=== PATIENT | female | born 1955 | race Caucasian/White ===

== ENCOUNTER 2023-04-11 19:48 | Outpatient (REF) | payer OTHER, SELFPAY ==
[2023-04-15 16:07] LABS: Age Gdln ACOG Testing Note (.); Pap IG (Image Guided) Note (.)
== END 2023-04-11 19:49 | disposition home or self-care (01) ==
LOC: LAB 19:48
PROVIDERS: Visit Provider Obstetrics & Gynecology
DX: Z01.419 Encounter for gynecological examination (general) (routine) without abnormal findings (principal)
CPT/HCPCS: G0145

== ENCOUNTER 2023-04-20 07:01 | Outpatient (OUT) | payer OTHER, SELFPAY ==
--- NOTE | 2023-04-20 | MM_ITS ---
Patient: DENNIS ECHEVARRIA Exam Date: 04/20/2023 : 1955 Gender:F Ordering : DR Tyler Ervin . Admission #: [id number] Family : Non-Staff Physician Order #: [id number] CLICK HERE TO VIEW EXAM RADIOLOGY REPORT PROCEDURE: MM TOMOSYNTHESIS SCREENING BI COMPARISON: MG MAMM SCREEN 3D LUAN CAD, 04/18/2022. MG MAMM SCREEN 3D LUAN CAD, 03/29/2021. MG MAMM SCREEN LUAN W CAD, 03/19/2020. MG MAMM LUAN SCRN W CAD DIG, 11/04/2013. INDICATIONS: screening mamm Calculator Name NCI Breast Cancer Risk Assessment Tool 5 Year Breast Cancer Risk 2.50% Lifetime Breast Cancer Risk 8.90% Personal Breast Cancer No Personal Ovarian Cancer No Treatments None Family Cancers Aunt-paternal with breast cancer at age ~60; Brother with rectal cancer at age 70. LOCATION: [facility] BREAST COMPOSITION: Extremely dense, which lowers the sensitivity of mammography. FINDINGS: DIAGNOSTIC CATEGORY 1--NEGATIVE. RIGHT BREAST: No significant suspicious finding. No significant change has occurred. LEFT BREAST: No significant suspicious finding. No significant change has occurred. RECOMMENDATIONS: ROUTINE MAMMOGRAM AND CLINICAL EVALUATION IN 12 MONTHS. PLEASE NOTE: A NORMAL MAMMOGRAM DOES NOT EXCLUDE THE POSSIBILITY OF BREAST CANCER. A CLINICALLY SUSPICIOUS PALPABLE LUMP SHOULD BE BIOPSIED. Dictated by: Chacorta Castro M.D. on 04/20/2023 at 13:45 Approved by: Chacorta Castro M.D. on 04/20/2023 at 13:48
== END 2023-04-20 07:02 | disposition home or self-care (01) ==
LOC: MAMMO 07:01
PROVIDERS: Visit Provider Obstetrics & Gynecology
DX: Z12.31 Encounter for screening mammogram for malignant neoplasm of breast (principal); Z80.3 Family history of malignant neoplasm of breast; Z80.0 Family history of malignant neoplasm of digestive organs
CPT/HCPCS: 77063; 77067

== ENCOUNTER 2023-08-08 13:06 | Outpatient (OUT) | payer OTHER, SELFPAY ==
--- NOTE | 2023-08-08 | XR_ITS ---
The [address] [address] Patient Name: DENNIS ECHEVARRIA MRN: [id number] date: 1955 Sex: F Assigned Patient Location: RAD Current Patient Location: [facility] Accession/Order Number: [id number] Exam Date: 08/08/2023 13:20 Report Date: 08/08/2023 16:14 At the request of: DENIS CHANG Procedure: XR foot LUAN min 3V EXAMINATION: XR foot LUAN min 3V HISTORY: RIGHT FOOT PAIN COMPARISON: No relevant comparison available. FINDINGS: RIGHT FINDINGS: BONES: Normal. No significant arthropathy or acute abnormality. SOFT TISSUES: Negative. No visible soft tissue swelling. OTHER: Negative. LEFT FINDINGS: BONES: Normal. No significant arthropathy or acute abnormality. SOFT TISSUES: Negative. No visible soft tissue swelling. OTHER: Negative. XR/XR foot LUAN min 3V IMPRESSION: RIGHT CONCLUSION: No acute abnormality LEFT CONCLUSION: No acute abnormality Electronically authenticated by: GALINA FRAGOSO Date: 08/08/2023 16:14
== END 2023-08-08 13:07 | disposition home or self-care (01) ==
LOC: RAD 13:06
PROVIDERS: Visit Provider Podiatrist Foot & Ankle Surgery
DX: M25.571 Pain in right ankle and joints of right foot (principal); M25.572 Pain in left ankle and joints of left foot
CPT/HCPCS: 73630

== ENCOUNTER 2024-04-24 19:08 | Outpatient (REF) | payer OTHER, SELFPAY ==
--- OUTSIDE RECORDS SUMMARY | 2024-04-24 19:12 | XMS_ITS | CCD ---
Author Organization [facility] Care Team Providers Care Furniture Crater Name Role Phone Conchis Zamora Kori Unavailable Unavailable Unavailable Conchis Zamora Primary Care Provider Gasper Hamilton MD Unavailable [phone] CONCHIS ZAMORA Primary Care Physician Malvin Westbrook Unavailable JEWELL Robert Attending Unavailable JEWELL Robert Referring Unavailable Petulisses, Dr. Conchis Mason Primary Care Un available Petznick, Dr. Conchis Mason Primary Care Un available Lyster, Dr. Julio Lopez Attending Unavail able Lyster, Dr. Julio Lopez Referring Unavail able Robert, Ms. Ji Attending Unavailable Jakob, Ms. Ji Referring Unavailable Petznarlyn, Dr. Conchis Mason Primary Care Un available PETZNICK, CONCHIS Admitting Unavailable PETZNICK, CONCHIS Attending Unavailable PETZNICK, [facility] Primary Care Unavailable PETZNICK, CONCHIS Consulting Unavailable FOUZIA, DR GALINA Garrido Admitting Unavailable FOUZIA, DR GALINA Garrido Attending Unavailable PETZNICK, CONCHIS Primary Care Unavailable PETZNICK, [facility] Primary Care Unavailable GUSTAVO Navarrete, DR MALIK Admitting Unavailable HAY ., DR MALIK Attending Unavailable ZIEBER, DR BRIAN Haynes Consulting Unavailable GUSTAVO ., DR MALIK Consulting Unavailable POLO ., DR RIDDLE Admitting Unavailable POLO ., DR RIDDLE Attending Unavailable PETZNICK, CONCHIS Primary Care Unavailable POLO ., DR RIDDLE Consulting Unavailable POLO ., DR RIDDLE Admitting Unavailable POLO ., DR RIDDLE Attending Unavailable PETZNICK, [facility] Primary Care Unavailable FOUZIA, DR GALINA Garrido Consulting Unavailable POLO ., DR RIDDLE Consulting Unavailable MAURIZIO, DR BRIAN Haynes Consulting Unavailable Filemon Meléndez Unavailable Petulisses, DO Conchis Primary Care Provider MD Fozia Robert Emergency Provider [phone] Conchis Zamora Primary Care Unavailable Fozia Robert Admitting Unavailable Fozia Robert Attending Unavailable Petulisses HERNÁNDEZ, Conchis Marlon Primary Care [facility] er LACEY DAMICO Attending Unavailable CONCHIS ZAMORA Primary Care Unavai lable Conchis Zamora DO Unavailable Petulisses HERNÁNDEZ, Conchis Sheikh Primary Care Provider CONCHIS ZAMORA Attending Unavailable PETULISSES, CONCHIS Sheikh Referring Unavailable AGUILA MERCADO Attending Unavailable AGUILA MERCADO Referring Unavailable AGUILA MERCADO Attending Unavailable NATALIA YEAGER Attending Unavailable PETULISSES, CONCHIS Sheikh Referring Unavailable AGUILA MERCADO Referring Unavailable JR. ARA, CHERIE Sheikh Attending Unavaila ble CONCHIS BUENO Attending Unavailable BUENO, CONCHIS Olmedo Attending Unavailable RAIN STARR Attending Unavailable BUENO, CONCHIS J Referring Unavailable SHARA DUMONT Attending Unavailable BUENO, CONCHIS J Referring Unavailable ORLANDOKRISHAN Attending Unavailable BUENO, CONCHIS J Referring Unavailable STARR, RAIN Attending Unavailable BUENO, CONCHIS J Referring Unavailable ORLANDO, KRISHAN Attending Unavailable BUENO, CONCHIS J Referring Unavailable ORLANDO, KRISHAN Attending Unavailable BUENO, CONCHIS J Referring Unavailable ORLANDO, KRISHAN Attending Unavailable BUENO, CONCHIS J Referring Unavailable STARR, RAIN Attending Unavailable BUENO, CONCHIS J Referring Unavailable JR. MCCLELLAN GEORGE C Attending Unavaila ble KRISHAN PERRY Attending Unavailable BUENO, CONCHIS J Referring Unavailable ORLANDO, KRISHAN Attending Unavailable BUENO, CONCHIS J Referring Unavailable STARR, RAIN Attending Unavailable BUENO, CONCHIS J Referring Unavailable ORLANDO, KRISHAN Attending Unavailable BUENO, CONCHIS J Referring Unavailable DEVON HUSTON Attending Unavailable BUENO, CONCHIS J Referring Unavailable ORLANDO, KRISHAN Attending Unavailable BUENO, CONCHIS J Referring Unavailable ORLANDO, KRISHAN Attending Unavailable BUENO, CONCHIS J Referring Unavailable ORLANDO, KRISHAN Attending Unavailable BUENO, CONCHIS J Referring Unavailable STARR, RAIN Attending Unavailable BUENO, CONCHIS J Referring Unavailable ORLANDO, KRISHAN Attending Unavailable BUENO, CONCHIS J Referring Unavailable PETZNICKCONCHIS Attending Unavailable ORLANDO, KRISHAN Attending Unavailable CONCHIS BUENO Referring Unavailable Morgan TILLMAN Attending Unavailable Morgan TILLMAN Attending Unavailable Ludmila Ruff Attending Unavailable Allergies Allergy Classification Reported Allergen(s) Allergy Type Date of Onset Reaction(s) Facility (19 sources) Clarithromycin; Translations: [Biaxin] Drug Allergy 7 Intolerance, Unknown [facility] (3 sources) Dog Allergy to substance 2 Itching [facility] (14 sources) Glycerin; Translations: [saliva substitutes] Drug Allergy 3 Diarrhea (finding), Diarrhea [facility] (10 sources) Clarithromycin; Translations: [clarithromycin] Drug Allergy 7 Unknown [facility] Medications Current Medications Medication Drug Class(es) Dates Sig (Normalized) Sig (Original) [id number] 200 actuat albuterol 0.09 mg/actuat metered dose inhaler (7 sources) beta2-Adrenergic Agonist Start: 06-08-2022 albuterol HFA 90 mcg/act inhaler every 6 (six) hours. 06/08/2022 Active aspirin 81 mg delayed release oral tablet (20 sources) Platelet Aggregation Inhibitor, Nonsteroidal Anti-inflammatory Drug Start: 09-17-2018 take 1 tablet by mouth once daily Aspirin (Aspirin Low Dose) 81 mg Tablet,Delayed Release (Dr/Ec) Active 81 MG PO Daily September 17, 2018 12:00am Start: 09-18-2017 take 81 mg by mouth once daily aspirin 81 mg, Oral, Daily, Refills(s) 0, Prophylaxis Start Date: 09/18/17 Status: Ordered Comment on above: Take 81 mg by mouth once daily. biotin 1 mg oral tablet (10 sources) biotin 1000 MCG tablet Take by mouth Daily. Active Biotin 1 mg tab Take by mouth once daily. 0 Active Comment on above: Take by mouth once d aily. calcium carbonate 1500 mg oral tablet (16 sources) take 1 tablet by mouth in the morning calcium carbonate 1500 (600 Ca) MG tablet Take 600 mg by mouth in the morning. Active calcium carbonate 1500 mg / cholecalciferol 200 unt oral tablet (1 source) Vitamin D Start: 2 take 1 tablet by mouth once daily Calcium Carbonate-Vitamin D3 (Calcium + D) 600 mg-5 mcg (200 unit) Tablet Active 1 TAB PO Daily October 19, 2021 12:00am Co Q 10 (5 sources) Co Q 10 Active Co Q-10 (6 sources) Start: 8 take 200 mg by mouth once daily Co Q-10 200 mg, Oral, Daily, Refills(s) 0, Prophylaxis Start Date: 09/18/17 Status: Ordered estradiol 0.1 mg/ml vaginal cream (16 sources) Estrogen Start: Estrace 0.1 mg/g Cream 1 gm, Vaginal, MonFri, 42.5 gm, Refill(s) 11, apply 1 gram 2x a week, [facility]/pharmacy #[id number], 157, cm, 01/15/23 9:07:00 EDT, Height/Length Dosing, 65, kg, 01/15/23 9:07:00 EDT, Weight Dosing Start Date: 05/12/23 Status: Ordered Start: 12-30-2022 estradiol (Est race) 0.1 MG/GM vaginal cream APPLY 1 GRAM VAGINALLY TWICE A WEEK (SUNDAY & SUNDAY) 12/30/2022 Active Start: 10-19-2021 Estradiol Acti ve 1 APPLICATOR VAGINAL Twice a Week October 19, 2021 12:00am Start: 03-28-2021 estradiol (EST RACE) 0.01 % (0.1 mg/gram) vaginal cream Use 1 g vaginally two times a week. 0 03/28/2021 Active Start: 03-28-2021 estradiol 0.1 mg/g vaginal cream 1 gram, Vaginal, MonFri, apply 1gram 2x a week, # 42.5 gm, Refills(s) 7, Pharmacy: [facility]), 157, cm, 03/28/21 10:13:00 EDT, Height/Length Dosing, 67, kg, 03/28/21 10:13:00 EDT, Weight Dosing Start Date: 03/28/21 Status: Ordered estradiol (Estra ce) 0.01 % (0.1 mg/gram) vaginal cream Insert 0.25 Applicatorfuls (1 g) into the vagina 2 times a week. 0 Active Comment on above: Use 1 g vaginally tw o times a week. estradiol 0.1 mg/g vaginal cream (5 sources) Start: 05-02-2022 estradiol 0.1 mg/g vaginal cream 1 gram, Vaginal, MonFri, apply 1gram 2x a week, # 42.5 gm, Refills(s) 7, Pharmacy: [facility]/pharmacy #[id number], 157, cm, 01/20/22 8:35:00 EDT, Height/Length Dosing, 67, kg, 01/20/22 8:35:00 EDT, Weight Dosing Start Date: 05/02/22 Status: Ordered Start: 03-28-2021 estradiol 0.1 mg/g vaginal cream 1 gram, Vaginal, MonFri, apply 1gram 2x a week, # 42.5 gm, Refills(s) 7, Pharmacy: [facility]), 157, cm, 03/28/21 10:13:00 EDT, Height/Length Dosing, 67, kg, 03/28/21 10:13:00 EDT, Weight Dosing Start Date: 03/28/21 Status: Ordered hydrocortisone acetate 25 mg rectal suppository (1 source) Corticosteroid Start: 12-09-2020 take 25 mg rectal route at bedtime hydrocortisone 25 mg rectal suppository 25 mg = 1 supp, Rectal, Bedtime, # 36 supp, Refills(s) 1, Pharmacy: [facility]), 157.5, cm, 09/01/20 14:14:00 EST, Height/Length Dosing, 67.2, kg, 09/01/20 14:14:00 EST, Weight Dosing Start Date: 12/09/20 Status: Ordered hydrocortisone 25 mg rectal suppository (3 sources) Start: 12-09-2020 take 25 mg rectal route at bedtime hydrocortisone 25 mg rectal suppository 25 mg = 1 supp, Rectal, Bedtime, # 36 supp, Refills(s) 1, Pharmacy: [facility]), 157.5, cm, 09/01/20 14:14:00 EST, Height/Length Dosing, 67.2, kg, 09/01/20 14:14:00 EST, Weight Dosing Start Date: 12/09/20 Status: Ordered ibandronic acid 150 mg oral tablet (7 sources) Bisphosphonate Start: 02-14-2024 take 1 tablet by mouth every month ibandronate (Boniva) 150 MG tablet Indications: Age-related osteoporosis without current pathological fracture (CMS/HCC) TAKE 1 TABLET BY MOUTH ONCE A MONTH WITH PLAIN WATER 60 MINUTES BEFORE THE FIRST FOOD, BEVERAGE OR MEDICINE OF THE DAY. 12 tablet 02/14/2024 Active latanoprost 0.05 mg/ml ophthalmic solution (7 sources) Prostaglandin Analog Start: 11-14-2022 take 1 drop(s) into the eye(s) at bedtime latanoprost (Xalatan) 0.005 % ophthalmic solution Administer 1 drop into both eyes at bedtime. 11/14/2022 Active LORazepam 1 mg oral tablet (7 sources) Benzodiazepine Start: 10-23-2023 LORazepam (Ativan) 1 MG tablet Indications: Anxiety Take 1 tablet (1 mg) by mouth See administration instructions for 10 days 1 by mouth 1 hour prior to MRI 1 tablet 10/23/2023 Active meclizine hydrochloride 25 mg oral tablet (3 sources) Antiemetic Start: 01-15-2023 meclizine 25 mg Tab Refills(s) 0 Start Date: 01/15/23 Status: Ordered Start: 01-15-2023 meclizine 25 m g Tab Refills(s) 0 Start Date: 01/15/23 Status: Ordered Start: 01-07-2023 take 25 mg by mouth three times daily Meclizine Active 25 MG PO Three times daily January 07, 2023 12:00am 24 hr metoprolol succinate 25 mg extended release oral tablet (20 sources) beta-Adrenergic Sebastien Start: 04-02-2024 take 1 tablet by mouth every twenty-four hours, then take 0.5 tablet by mouth once daily metoprolol succinate XL (Toprol-XL) 25 MG 24 hr tablet Indications: Primary hypertension (CMS/HCC) TAKE 1 AND 1/2 TABLETS DAILY BY MOUTH EVERY DAY 135 tablet 04/02/2024 Active Start: 09-22-2021 End: 09-22-2022 take 1 mg by mouth once daily metoprolol 25 mg ER Tab mg tab(s), Oral, Daily, Refills(s) 0 Start Date: 01/20/22 Status: Ordered take 1.5 tablets by mouth once daily metoprolol succinate XL (Toprol XL) 25 mg 24 hr tablet Take 1.5 tablets (37.5 mg) by mouth once daily. 0 Active take 1 tablet by quang th every twelve hours Metoprolol Tartrate 37.5 MG 1 tablet with food Orally Twice a day Active take 1.5 tablets by mouth once daily Toprol XL 25 MG Oral Tablet Extended Release 24 Hour TAKE 1.5 TABLET Daily Quantity: 0 Refills: 0 Ordered: 15-May-2022 DO Active Comment on above: Take 1 tablet by quang th once daily. montelukast 10 mg oral tablet (7 sources) Leukotriene Receptor Antagonist Start: 023 take 1 tablet by mouth once daily montelukast (Singulair) 10 MG tablet Indications: Wheezing TAKE 1 TABLET BY MOUTH EVERY DAY 90 tablet 1 06/25/2023 Active Multiple Vitamins Tab (6 sources) Start: 018 take 1 tablet by mouth once daily Multiple Vitamins Tab 1 tab(s), Oral, Daily, Refill(s) 0, Prophylaxis Start Date: 09/18/17 Status: Ordered Mszooonl-Yvz-Vylto Acid-Vit K (Multi For Her 50 Plus) 400-80 mcg Capsule (1 source) Start: 019 take 50-400 capsules by mouth once daily Cgopfzjr-Xkv-Apdui Acid-Vit K (Multi For Her 50 Plus) 400-80 mcg Capsule Active 1 CAP PO Daily September 17, 2018 12:00am multivit-min/ferrous fumarate (MULTI VITAMIN ORAL) (1 source) take 1 tablet by mouth once daily multivit-min/ferrous fumarate (MULTI VITAMIN ORAL) Take 1 tablet by mouth once daily. 0 Active Multivitamins (5 sources) Multivitamins Or ally Active nitrofurantoin, macrocrystals 25 mg / nitrofurantoin, monohydrate 75 mg oral capsule (1 source) Nitrofuran Antibacterial Start: 023 End: take 1 capsule by mouth twice daily Macrobid 100 mg Cap 100 mg = 1 cap(s), Oral, BID, X 5 day(s), # 10 cap(s), Refills(s) 0, Pharmacy: [facility]/pharmacy #[id number], 157, cm, 01/20/22 8:35:00 EDT, Height/Length Dosing, 67, kg, 01/20/22 8:35:00 EDT, Weight Dosing Start Date: 09/11/22 Stop Date: 09/16/22 Status: Ordered ondansetron 4 mg disintegrating oral tablet (3 sources) Serotonin-3 Receptor Antagonist Start: ondansetron 4 mg Dis Tab Refills(s) 0 Start Date: 01/15/23 Status: Ordered Start: 01-07-2023 Ondansetron Ac tive 4 MG PO every 6 to 8 hours January 07, 2023 12:00am pantoprazole 40 mg extended release oral tablet (20 sources) Proton Pump Inhibitor Start: 05-12-2020 take 1 tablet by mouth once daily pantoprazole 40 mg Oral EC Tab 40 mg = 1 tab(s), Oral, Daily, # 10 tab(s), Refills(s) 0, Pharmacy: [facility]/pharmacy #[id number], 157.5, cm, 02/25/20 15:53:00 EDT, Height/Length Dosing, 65, kg, 02/25/20 15:53:00 EDT, Weight Dosing Start Date: 05/12/20 Status: Ordered Start: 09-17-2018 take 1 tablet by quang th once daily pantoprazole 40 mg Oral EC Tab 40 mg = 1 tab(s), Oral, Daily, # 10 tab(s), Refills(s) 0, Pharmacy: [facility]/pharmacy #[id number], 157.5, cm, 02/25/20 15:53:00 EDT, Height/Length Dosing, 65, kg, 02/25/20 15:53:00 EDT, Weight Dosing Start Date: 05/12/20 Status: Ordered Comment on above: Take 40 mg by mouth once daily. PARoxetine hydrochloride 20 mg oral tablet (20 sources) Serotonin Reuptake Inhibitor Start: take 1 tablet by mouth once daily PARoxetine (Paxil) 20 MG tablet Indications: Anxiety TAKE 1 TABLET BY MOUTH DAILY 90 tablet 02/29/2024 Active Start: 09-17-2018 take 20 mg by mouth once daily at bedtime Paroxetine Hcl Active 20 MG PO Daily at bedtime September 17, 2018 12:00am Start: 09-18-2017 take 20 mg by mouth once daily Paxil 20 mg, Oral, Daily, Refills(s) 0, Depression Start Date: 09/18/17 Status: Ordered take 1 tablet by quang th once daily PARoxetine (PAXIL) 10 mg tablet Take 10 mg by mouth once daily. 0 Active Comment on above: Take 10 mg by mouth once daily. polyethylene glycol 3350 71965 mg powder for oral solution (13 sources) Osmotic Laxative Start: Polyethylene Glycol 3350 17 GM/SCOOP as directed Orally Once a day for 30 day(s) DISPENSE LARGEST BOTTLE Feb, Active rosuvastatin calcium 10 mg oral tablet (20 sources) HMG-CoA Reductase Inhibitor Start: 3 take 1 tablet by mouth once daily rosuvastatin (Crestor) 10 mg tablet Indications: Mixed hyperlipidemia Take 1 tablet (10 mg) by mouth once daily. 90 tablet 3 05/10/2023 Active Start: 08-15-2021 End: 05-10-2023 take 1 tablet by mouth in the morning rosuvastatin (Crestor) 10 MG tablet Indications: Hyperlipidemia, unspecified hyperlipidemia type (CMS/HCC) Take 1 tablet (10 mg) by mouth in the morning. 90 tablet 2 02/22/2023 Active Start: 09-17-2018 Rosuvastatin ( Crestor) 10 mg Tablet Active 10 MG PO Q48H September 17, 2018 12:00am Every other day Start: 09-18-2017 take 10 mg by mouth once daily at bedtime Crestor 10 mg, Oral, Once a day (at bedtime), Refills(s) 0, High cholesterol Start Date: 09/18/17 Status: Ordered take 1 tablet by quang th once daily rosuvastatin (CRESTOR) 5 mg tablet Take 5 mg by mouth once daily. 0 Active Comment on above: Take 5 mg by mouth o nce daily. tetrahydrozoline hydrochloride 0.5 mg/ml ophthalmic solution (2 sources) take 1 drop(s) into the eye(s) four times daily as needed Eye Drops 0.05 % 1 drop into affected eye as needed Ophthalmic Four times a day Active triamcinolone acetonide 1 mg/ml topical cream (4 sources) Corticosteroid Start: End: triamcinolone (Kenalog) 0.1 % cream Indications: Irritation of eyelid Apply topically 2 (two) times a day for 7 days 45 g 1 04/14/2024 04/21/2024 Active ubidecarenone 100 mg oral capsule (10 sources) Start: 019 Coenzyme Q10 (Co Q-10) 100 mg Capsule Active 200 MG PO Daily September 17, 2018 12:00am take 1 capsule by mouth once farida ly coenzyme Q-10 200 mg capsule Take 1 capsule (200 mg) by mouth once daily. 0 Active ubidecarenone 100 mg / vitamin e 5 unt oral capsule (7 sources) coenzyme Q-10 10 0 MG capsule 1 (one) time each day at the same time. Active Zinc (4 sources) Start: 10-19-2021 take 50 mg by mouth once daily Zinc Active 50 MG PO Daily October 19, 2021 12:00am take 1 tablet by mouth once artie y Zinc 50 mg tab Take 50 mg by mouth once daily. 0 Active Comment on above: Take 50 mg by mouth once daily. Completed/Discontinued Medications Medication Drug Class(es) Dates Sig (Normalized) Sig (Original) bisoprolol fumarate 5 mg oral tablet (15 sources) beta-Adrenergic Sebastien Start: 09-18-2017 End: 10-19-2021 take 5 mg by mouth once daily at bedtime Bisoprolol Fumarate Discontinued 5 MG PO Daily at bedtime September 17, 2018 12:00am October 19, 2021 7:13am Calcium Carbonate / vitamin D3 (3 sources) take 1 tablet by mouth once daily calcium carbonate/vitamin D3 (CALCIUM 600 + D,3, ORAL) Take 1 tablet by mouth once daily. Calcium 600 mg D3 800 IU 0 Active Comment on above: Take 1 tablet by quang th once daily. Calcium 600 mg D3 800 IU estrogens, conjugated (long-term) 0.625 mg/ml vaginal cream (1 source) Estrogen Start: 09-17-2018 End: 10-19-2021 Conjugated Estrogens (Premarin) 0.625 mg/gram Cream Discontinued 1 APPLICATOR VAGINAL Twice a Week September 17, 2018 12:00am October 19, 2021 7:32am furosemide 20 mg oral tablet (1 source) Loop Diuretic Start: 09-17-2018 End: 10-19-2021 take 20 mg by mouth once daily Furosemide Discontinued 20 MG PO Daily September 17, 2018 12:00am October 19, 2021 7:32am lutein 20 mg / zeaxanthin 1 mg oral capsule (1 source) Start: 09-17-2018 End: 10-19-2021 take 1 capsule by mouth once daily Lutein-Zeaxanthin Discontinued 1 CAP PO Daily September 17, 2018 12:00am October 19, 2021 7:32am magnesium oxide 400 mg oral tablet (6 sources) Start: 05-30-2021 take 1 tablet by mouth once daily Magnesium Oxide 400 MG Oral Tablet TAKE 1 TABLET DAILY. Quantity: 90 Refills: 3 Ordered: 30-May-2021 Julio Christian DO Start : 30-May-2021 Active Multi Vitamin Oral Tablet (8 sources) take 1 tablet by mouth once daily Multi Vitamin Oral Tablet TAKE 1 TABLET DAILY. Quantity: 0 Refills: 0 Ordered: 30-May-2021 DO Active MULTIVITAMIN ORAL (3 sources) take 1 tablet by mouth once daily MULTIVITAMIN ORAL Take 1 tablet by mouth once daily. 0 Active Comment on above: Take 1 tablet by quang th once daily. Polyethylene Glycols (3 sources) polyethylene gly col 3350 (MIRALAX ORAL) Take by mouth once daily. 0 Active Comment on above: Take by mouth once d aily. psyllium 525 mg oral capsule (4 sources) Start: 09-01-2020 take 8 capsules by mouth once daily Metamucil 525 mg oral capsule 2,625 mg = 5 cap(s), Oral, qPM, Take 2 hour apart from the other medications with at least 8 ounces of water, # 160 cap(s), Refills(s) 4, Pharmacy: [facility]/pharmacy #[id number], 157.5, cm, 09/01/20 14:14:00 EST, Height/Length Dosing, 67.2, kg, 09/01/20 14:14:... Start Date: 09/01/20 Status: Ordered UBIDECARENONE (CO Q-10 ORAL) (3 sources) take 200 mg by mouth once daily UBIDECARENONE (CO Q-10 ORAL) Take 200 mg by mouth once daily. 0 Active Comment on above: Take 200 mg by mouth once daily. Problems Active Problems Problem Classification Problem Date Documented Da te Episodic/Chronic Abdominal pain (13 sources) Left upper quadrant pain; Translations: [Left upper quadrant pain] Onset: 01-10-2023 Resolved: 07-11-2023 09-01-2020 Episodic Anxiety disorders (9 sources) Anxiety; Translations: [Anxiety disorder, unspecified] Onset: 03-03-2020 01-10-2023 Chronic Asthma (6 sources) Acute asthma 02-20-2019 Chronic Disorders of lipid metabolism (20 sources) Hyperlipidemia; Translations: [Other and unspecified hyperlipidemia] Onset: 03-06-2017 Resolved: 07-11-2023 08-12-2021 Chronic Diverticulosis and diverticulitis (5 sources) Diverticulitis; Translations: [Diverticulitis of intestine, part unspecified, without perforation or abscess without bleeding] Chronic Esophageal disorders (20 sources) Dukes's esophagus; Translations: [Eosinophilic esophagitis] Onset: 03-03-2020 Resolved: 08-16-2021 04-07-2019 Chronic Essential hypertension (20 sources) Essential hypertension; Translations: [Unspecified essential hypertension] Onset: 08-12-2021 Resolved: 07-11-2023 08-12-2021 Chronic Genitourinary symptoms and ill-defined conditions (20 sources) Genuine stress incontinence; Translations: [Urge incontinence of urine] Onset: 01-20-2022 Resolved: 07-11-2023 05-26-2019 Chronic Genitourinary symptoms and ill-defined conditions (20 sources) Increased frequency of urination; Translations: [Microscopic hematuria] Onset: 11-29-2021 Resolved: 07-11-2023 05-26-2019 Episodic Heart valve disorders (15 sources) Mitral valve prolapse; Translations: [Nonrheumatic mitral (valve) prolapse] Onset: 01-10-2023 02-20-2019 Chronic Hemorrhoids (13 sources) Hemorrhoids; Translations: [Unspecified hemorrhoids] Onset: 01-10-2023 02-20-2019 Episodic Osteoporosis (9 sources) Senile osteoporosis; Translations: [Age-related osteoporosis without current pathological fracture] Onset: 01-10-2023 01-10-2023 Chronic Other diseases of bladder and urethra (6 sources) Urethral stricture 03-28-2021 Episodic Other eye disorders (2 sources) Disorder of eyelid; Translations: [Other specified disorders of eyelid] 04-14-2024 Episodic Other gastrointestinal disorders (13 sources) Dysphagia; Translations: [Dysphagia, unspecified] Onset: 01-10-2023 04-07-2019 Episodic Other gastrointestinal disorders (13 sources) Heartburn; Translations: [Heartburn] Onset: 01-10-2023 Resolved: 07-11-2023 04-07-2019 Episodic Other gastrointestinal disorders (5 sources) Constipation; Translations: [Constipation, unspecified] Episodic Other gastrointestinal disorders (3 sources) Constipation, unspecified Onset: 08-16-2021 Resolved: 08-16-2021 Episodic Other infections; including parasitic (13 sources) Urethral stricture due to infection; Translations: [Urethral disorders in diseases classified elsewhere] Onset: 01-10-2023 05-26-2019 Episodic Other non-traumatic joint disorders (3 sources) Pain in right shoulder; Translations: [Pain in joint, shoulder region] 04-10-2024 Episodic Other nutritional; endocrine; and metabolic disorders (2 sources) Body mass index (BMI) 26.0-26.9, adult; Translations: [Body mass index (BMI) 26.0-26.9, adult] Onset: 05-09-2023 Episodic Residual codes; unclassified (1 source) Sleep apnea; Translations: [Sleep apnea, unspecified] Chronic Residual codes; unclassified (3 sources) History of arthroscopic procedure on shoulder; Translations: [Other specified postprocedural states] 04-10-2024 Episodic Screening and history of mental health and substance abuse codes (6 sources) Tobacco use and exposure - finding 05-26-2019 Chronic Unclassified (3 sources) CONTACT W/AND (SUSP) EXPOS COVID-19; Translations: [CONTACT W/AND (SUSP) EXPOS COVID-19] Onset: 08-07-2022 Unclassified (1 source) COUGH, UNSPECIFIED; Translations: [COUGH, UNSPECIFIED] Onset: 08-07-2022 Urinary tract infections (20 sources) Chronic cystitis; Translations: [Other chronic cystitis without hematuria] Onset: 01-20-2022 05-26-2019 Chronic Urinary tract infections (2 sources) Postinfective urethral stricture of female; Translations: [Postinfective urethral stricture, not elsewhere classified, female] Onset: 01-20-2022 Episodic Past or Other Problems Problem Classification Problem Date Documented Da te Episodic/Chronic Cardiac dysrhythmias (20 sources) Palpitations; Translations: [Palpitations] Onset: 05-09-2023 Resolved: 07-11-2023 Episodic Conditions associated with dizziness or vertigo (9 sources) Vertigo; Translations: [Dizziness and giddiness] Onset: 01-07-2023 Resolved: 07-11-2023 01-07-2023 Episodic Immunizations and screening for infectious disease (1 source) Encounter for screening for human papillomavirus (HPV); Translations: [ENC SCREENING HUMAN PAPILLOMAVIRUS] Onset: 04-12-2022 Episodic Nutritional deficiencies (10 sources) Vitamin D deficiency; Translations: [Vitamin D deficiency, unspecified] Onset: 10-07-2016 Resolved: 07-11-2023 10-07-2016 Chronic Osteoarthritis (14 sources) Arthritis of right hip; Translations: [Unilateral primary osteoarthritis, right hip] Onset: 04-19-2022 Resolved: 07-11-2023 07-11-2023 Chronic Other aftercare (1 source) assisted (current) use of aspirin; Translations: [GROUP HOME CURRENT USE OF ASPIRIN] Onset: 04-17-2022 Episodic Other aftercare (1 source) Other terminal 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 supervisor (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) drug therapy; Translations: [OTH GROUP HOME CURRENT DRUG THERAPY] Onset: 04-17-2022 Episodic Other bone disease and musculoskeletal deformities (1 source) Other specified disorders of bone density and structure, right thigh; Translations: [OTH D/O BONE DEN STRUCT RT THIGH] Onset: 04-20-2022 Episodic Other bone disease and musculoskeletal deformities (7 sources) Bone cyst of left ankle; Translations: [Other cyst of bone, left ankle and foot] Onset: 07-27-2023 07-27-2023 Episodic Other circulatory disease (4 sources) Hemorrhage, not elsewhere classified; Translations: [HEMORRHAGE NOT ELSEWHERE CLASSIFIED] Onset: 04-15-2022 Episodic Other connective tissue disease (7 sources) Dupuytren's contracture; Translations: [Palmar fascial fibromatosis [Dupuytren]] Onset: 04-01-2018 01-10-2023 Episodic Other nervous system disorders (7 sources) Impairment of balance; Translations: [Other abnormalities of gait and mobility] Onset: 01-10-2023 Resolved: 07-11-2023 07-11-2023 Episodic Other nutritional; endocrine; and metabolic disorders (20 sources) Overweight in adulthood with body mass index of 25 or more but less than 30; Translations: [Overweight] Onset: 05-09-2023 Resolved: 07-11-2023 05-10-2023 Episodic Other screening for suspected conditions (not mental disorders or infectious disease) (16 sources) Encounter for screening mammogram for malignant neoplasm of breast; Translations: [Encounter for screening for malignant neoplasm of cervix] Onset: 04-10-2022 Episodic Residual codes; unclassified (1 source) Asymptomatic menopausal state; Translations: [ASYMPTOMATIC MENOPAUSAL STATE] Onset: 04-20-2022 Episodic Residual codes; unclassified (1 source) Family history of malignant neoplasm of breast; Translations: [FAMILY HX MALIG NEOPLASM OF BREAST] Onset: 04-20-2022 Episodic Residual codes; unclassified (1 source) Family history of malignant neoplasm of other organs or systems; Translations: [FAM HX MALIG NEOPLASM OTH ORGN/SYS] Onset: 04-20-2022 Episodic Screening and history of mental health and substance abuse codes (9 sources) Ex-smoker; Translations: [Personal history of tobacco use] Onset: 01-10-2023 Resolved: 07-11-2023 07-11-2023 Episodic Unclassified (1 source) CONTACT W/AND (SUSP) EXPOS COVID-19; Translations: [CONTACT W/AND (SUSP) EXPOS COVID-19] Onset: 08-04-2022 Unclassified (1 source) Onset: 05-10-2023 05-10-2023 Results Test Name Value Interpretation Reference Range Facility Ambulatory Visit Summaryon 1 Ambulatory Visit Summary Ambulatory Visit Summary IVONNE ECHEVARRIA :1955 Visit Date:04/22/2024 Ambulatory Visit Instructions Your Diagnosis Urethral stricture Chronic cystitis Feeling of incomplete bladder emptying Your Care Team Attending Physician - EDGAR Ruff APRN, [place] X Primary Care Physician - CONCHIS ZAMORA DO This Is Your Medications List Contact prescribing physician if questions or concerns aspirin estradiol topical (Estrace 0.1 mg/g Cream) estradiol topical (estradiol 0.1 mg/g vaginal cream) meclizine (meclizine 25 mg Tab) metoprolol (metoprolol 25 mg ER Tab) multivitamin (Multiple Vitamins Tab) ondansetron (ondansetron 4 mg Dis Tab) paroxetine (Paxil) rosuvastatin (Crestor) ubiquinone (Co Q-10) Procedures Performed Dilation of urethra (04/04/2021), Dilation of urethra (06/28/2020), Esophagogastroduodenoscopy (03/12/2019), Colonoscopy (10/21/2018), Urethral dilatation (11/16/2017), Cystourethroscopy with dilation of urethral stricture (01/29/2017), Caesarean section, Laparoscopy, Rotator cuff, Tonsillectomy. Discharge Vitals Heart Rate (Peripheral) 91 Respiratory Rate 16 Blood Pressure 128/88 Height 157 cm Height 62 in Weight 65 kg Weight 143 lb BMI 26.37 What to do next Scheduled Follow-Up Appointments Sunday 3:00 PM EST With: Morgan TILLMAN MD Where: [facility] [address] [address] [place] [address]- You Need to Schedule the Following Appointments Follow Up with Morgan TILLMAN MD, URL When: Comments: IO UD Where: [address] [place] [address]- Medications What How Much When Instructions Unchanged aspirin 81 Milligram By Mouth Every day Contact prescribing physician if questions or concerns Unchanged estradiol topical (Estrace 0.1 mg/ g Cream) 1 Gram Vaginal Sunday & Sunday apply 1 gram 2x a week Contact prescribing physician if questions or concerns Unchanged estradiol topical (estradiol 0.1 mg/ g vaginal cream) 1 Gram Vaginal Sunday & Sunday apply 1gram 2x a week Contact prescribing physician if questions or concerns Unchanged meclizine (meclizine 25 mg Tab) Contact prescribing physician if questions or concerns Unchanged metoprolol (metoprolol 25 mg ER Tab) By Mouth Every day Contact prescribing physician if questions or concerns Unchanged multivitamin (Multiple Vitamins Tab) 1 Tablets By Mouth Every day Contact prescribing physician if questions or concerns Unchanged ondansetron (ondansetron 4 mg Dis Tab) Contact prescribing physician if questions or concerns Unchanged paroxetine (Paxil) 20 Milligram By Mouth Every day Contact prescribing physician if questions or concerns Unchanged rosuvastatin (Crestor) 10 Milligram By Mouth Once a day (at bedtime) Contact prescribing physician if questions or concerns Unchanged ubiquinone (Co Q-10) 200 Milligram By Mouth Every day Contact prescribing physician if questions or concerns Allergies Bioxtra (Diarrhea) Problems Ongoing - Any problem that you are currently receiving treatment for. Asthma, acute Dukes's esophagus Chronic cystitis Cystitis Dysphagia Eosinophilic esophagitis Frequency of urination Heartburn Hemorrhoids LUQ pain Microscopic hematuria Mitral valve prolapse Nocturia Other urethral stricture, female Personal history of smoking Stress incontinence Urethral stricture Urge incontinence Patient Survey You may receive a survey via text or e-mail asking about your office visit. Please share your experience with us by completing your survey. We appreciate your feedback and thank you for choosing us for your care. Education Materials Urethral Stricture Urethral stricture is when the tube that drains pee (urine) from the bladder out of the body (urethra) becomes too narrow. The urethra can become narrow because of scar tissue, infection, surgery, or an injury. This can make it difficult to pee (urinate). In females, the urethra opens above the vaginal opening. In males, the urethra opens at the tip of the penis, and the urethra is much longer than it is in females. Because of the length of the male urethra, urethral stricture is much more common in males. What are the causes? In males and females, common causes of urethral stricture include: ? Urinary tract infection (UTI). ? Sexually transmitted infection (STI). ? Using a soft tube in the urethra to drain pee from the bladder (urinary catheter). ? Urinary tract surgery. In males, common causes of urethral stricture include: ? A severe injury to the pelvis. ? Prostate surgery. ? Injury to the penis. In many cases, the cause of urethral stricture is not known. What increases the risk? You are more likely to develop this condition if you: ? Are male. Males who have had prostate surgery are at risk of developing this co (more content not included)... Normal [facility] Urology Office/Clinic Noteon 04-22-2024 Urology Office/Clinic Note Urology Office/Clinic Note Chief Complaint 15 month follow up HPI Staff 68 year old female PRW patient presents today for a 15 month follow up. Previous Dx: chronic cystitis, urethral stricture and stress incontinence. *Estradiol cream 1 gram 2x weekly. S/P IO UD 04/04/21, 06/28/20, 11/16/17. Cysto/UD 01/29/17. PVR: 0 ml Dysuria: denies Incomplete bladder emptying: sometimes Hematuria: denies Frequency: denies Urgency: denies Nocturia: once a night Stream: denies hesitancy, has a stream that goes different ways Leaking: denies Post void dripping: denies Wearing pads/ Depends: denies Urge incontinence: denies Stress incontinence: once in a while leaks a little if coughing, sneezing Incontinence without Sensory Awareness: denies Abdominal pain: denies Flank pain: denies Sexual complaints: _ History of Present Illness I have reviewed and verified the staff HPI to be accurate for this encounter. Portions of this record may have been created with voice recognition artificial intelligence software, specifically [employer], [employer] and or [employer]. Substitutions may have occurred due to the inherent limitations of voice recognition and artificial intelligence software. Review of Systems PHQ Score Initial Depression Screen Score: 0 SCORE Physical Exam Vitals & Measurements HR: 91(Peripheral) RR: 16 BP: 128/88 HT: 62 in HT: 157 cm WT: 65 kg WT: 143 lb BMI: 26.37 General: Well developed, well nourished, in no acute distress. Assessment/Plan PWR pt BBS 10 1. Urethral stricture (N35.12: Postinfective urethral stricture, not elsewhere classified, female) S/p IO UD done 04/04/21, 06/28/20, 11/16/2017. Cysto/UD done 01/29/17. [1] PVR today 0 No recent infections However, patient does note that she has a spraying stream that is extremely bothersome to her. We did discuss possibility of repeat urethral dilation, which patient is interested in. Discussed risks vs benefit of procedure, need for repeat procedure in the future. -Schedule for IO UD with PRW Ordered: Urnls Dip Stick Auto w/o Microscopy POC 28285 2. Chronic cystitis (N30.20: Other chronic cystitis without hematuria) Patient denies any urinary tract infection in the last year. UA today without signs of blood or infection. Patient is using estrogen cream twice weekly, tolerating well without side effects. Advised to continue use in order to prevent UTIs. Increase fluid intake, avoid bladder irritants ER for fever, NV, severe flank pain, inability to urinate -Patient knows to call office with urinary symptoms -Continue estrogen cream, call for refills Ordered: Urnls Dip Stick Auto w/o Microscopy POC 41370 3. Feeling of incomplete bladder emptying (R39.14: Feeling of incomplete bladder emptying) Occasional PVR today 0 -cont to monitor Ordered: [id number] Measure Post Void residual urine and/or bladder capacity by US- non-imaging Follow-up With When Contact Information PRIMO GRUBER, Morgan Haynes, URL [address] [place] [address]- Additional Instructions: IO UD Patient Education Urethral Stricture Problem List/Past Medical History Ongoing Asthma, acute Dukes's esophagus Chronic cystitis Cystitis Dysphagia Eosinophilic esophagitis Frequency of urination Heartburn Hemorrhoids LUQ pain Microscopic hematuria Mitral valve prolapse Nocturia Other urethral stricture, female Personal history of smoking Stress incontinence Urethral stricture Urge incontinence Historical No qualifying data Procedure/Surgical History Dilation of urethra (04/04/2021), Dilation of urethra (06/28/2020), Esophagogastroduodenoscopy (03/12/2019), Colonoscopy (10/21/2018), Urethral dilatation (11/16/2017), Cystourethroscopy with dilation of urethral stricture (01/29/2017), Caesarean section, Laparoscopy, Rotator cuff, Tonsillectomy. Medications aspirin, 81 mg, Oral, Daily Co Q-10, 200 mg, Oral, Daily Crestor, 10 mg, Oral, Once a day (at bedtime) Estrace 0.1 mg/g Cream, 1 gm, Vaginal, MonFri, 11 refills estradiol 0.1 mg/g vaginal cream, 1 gm, Vaginal, MonFri, 7 refills meclizine 25 mg Tab metoprolol 25 mg ER Tab, Oral, Daily Multiple Vitamins Tab, 1 tab(s), Oral, Daily ondansetron 4 mg Dis Tab Paxil, 20 mg, Oral, Daily Allergies Bioxtra (Diarrhea) Social History Alcohol Current, 02/20/2019 Exercise Other Caffeine-non e, 02/20/2019 Substance Abuse - Denies Substance Abuse, 02/20/2019 Tobacco Never (less than 100 in lifetime) Tobacco Use:. Never Smokeless Tobacco Use:. Household tobacco concerns: No., 04/22/2024 Family History Colon cancer: Brother. Prostate CA: Brother. Immunizations Vaccine Date Status influenza virus vaccine, inactivated 06/20/2022 Recorded zoster vaccine, inactivated 04/04/2022 Recorded pneumococcal 20-valent conjugate vaccine 11/08/2021 Recorded zoster vaccine, inactivated 10/10/2021 Recorded SARS-CoV- (more content not included)... Normal [facility] Comment on above: Result Comment: Elec tronically Signed By: EDGAR Ruff APRN, Ludmila Abreu\.br\Date and Time Signed: 04/22/24 09:55 EDT MR SHOULDER RIGHT WO IV CONT Ish 11-05-2023 MR SHOULDER RIGHT WO IV CONTRAST EXAMINATION: MR SHOULDER RIGHT WO IV CONTRAST HISTORY: continuous pain right shoulder pain. TECHNIQUE: Routine non-contrast MRI of the shoulder, right side COMPARISON: 10/09/2023 radiographs. RESULT: Rotator Cuff Tendons: Full-thickness tearing involving essentially entire distal supraspinatus, with medial retraction of the torn fibers to near the acromion, with underlying tendinosis. Mild tendinosis involving infraspinatus and subscapularis, with small amount of reactive cystic change at the insertions, without evidence for tear. Teres minor appears intact. Long Head Biceps Tendon: Intra-articular portion not well visualized, probably torn with distal retraction. Muscle: Mild volume loss of supraspinatus. Labrum: Diffuse fraying/tearing. Bones and Marrow: No evidence of fracture or bone marrow replacing process. Glenohumeral Joint: Osteophytes with at least small areas of chondral loss. No joint effusion. Acromioclavicular Joint: Mild degenerative changes with undersurface osteophytes. Other: Fluid extending into the subacromial subdeltoid bursa. IMPRESSION: Full-thickness tearing involving essentially entire distal supraspinatus as discussed. Likely tear with distal retraction of the long head biceps tendon ELECTRONICALLY SIGNED BY: Alexy Saldana MD Normal Not Available Comment on above: Order Comment: MRI R T shoulder w/o at [facility]. Orbits if needed. US LOWER EXTREMITY NON-VASC LEFTon 07-11-2023 US LOWER EXTREMITY NON-VASC LEFT US LOWER EXTREMITY NON-VASC LEFT History: Left ankle lump and swelling. Technique: Sonography of the area of concern within the soft tissues of the ankle was performed. Comparison: None. Result: Corresponding to the area of concern/lump there is a hypoechoic area measured at 2.0 x 0.8 x 1.9 cm, which is nonspecific sonographically. This could represent ganglion cyst, focal joint fluid, among multiple other etiologies. Recommend clinical correlation. If not resolving, could consider ankle MRI to further assess. IMPRESSION: Impression: Nonspecific hypoechoic area at the area of lump as discussed. ELECTRONICALLY SIGNED BY: Alexy Saldana MD Normal Not Available Alanine aminotransferase [En zymatic activity/volume] in Serum or PlasmaOrdered By: Fozia Robert on 01-07-2023 ALT [Catalytic activity/Vol] 15 U/L 7-52 [facility] Albumin [Mass/volume] in Ser um or Plasma by Bromocresol green (BCG) dye binding methoOrdered By: Fozia Robert on 01-07-2023 Albumin BCG dye [Mass/Vol] 4.4 g/dL 3.5-5.7 [facility] Alkaline phosphatase [Enzyma tic activity/volume] in Serum or PlasmaOrdered By: Fozia Robert on 01-07-2023 ALP [Catalytic activity/Vol] 51 U/L 34-104 [facility] Aspartate aminotransferase [ Enzymatic activity/volume] in Serum or PlasmaOrdered By: Fozia Robert on 01-07-2023 AST [Catalytic activity/Vol] 22 U/L 13-39 [facility] Basophils Auto (Bld) [#/Vol] Ordered By: Fozia Robert on 01-07-2023 Basophils (Bld) [#/Vol] 0.1 10*3/uL 0.0-0.2 [facility] Basophils/100 WBC Auto (Bld) Ordered By: Fozia Robert on 01-07-2023 Basophils/100 WBC (Bld) 1.5 % . [facility] Bilirubin.total [Mass/volume ] in Serum or PlasmaOrdered By: Fozia Robert on 01-07-2023 Bilirubin [Mass/Vol] 0.5 mg/dL 0.3-1.[address] [facility] CT head/brain wo conon 01-07 CT head/[place] [address] CT Scan Report Signed Patient: Ivonne Echevarria MR#: [id number] : 1955 Acct:[id number] Age/Sex: 67 / F ADM Date: 01/07/23 Loc: ER Room: Type: [facility] ER Attending Dr: Copies to: Fozia Robert MD Ordering Provider: Fozia Robert MD Date of Service: 01/07/23 CT/CT head/brain wo con: lightheadedness/dizziness Unenhanced head CT TECHNIQUE: Contiguous axial imaging of the head. The CT exam was performed using one or more the following dose reduction techniques: Automated exposure control, adjustment of the MA and/or Kv according to patient size, or use of the iterative reconstruction technique. COMPARISON: None HISTORY: Elevated blood pressure. Dizziness. VENTRICLES: Within normal limits ATROPHY: None BRAIN PARENCHYMA: Adequate wooten-white matter differentiation identified. HEMORRHAGE: None HERNIATION: No mass effect or herniation INFARCTION: No recent vascular distribution infarction is seen. EXTRA-AXIAL FLUID COLLECTIONS None MIDBRAIN: Unremarkable LEVON: Unremarkable MEDULLA: Unremarkable SINUSES: Unremarkable ORBITS: Grossly unremarkable MASTOIDS: Unremarkable BONY STRUCTURES Intact ADDITIONAL FINDINGS: CT/CT head/brain wo con IMPRESSION: Unremarkable exam Impression dictated by: Devendra Jones M.D.01/07/2023 1:28 PM Dictation Location: [place] [address] Transcribed By: [facility] 01/07/23 1328 Dictated By: Devendra Jones DO 01/07/23 1325 Signed By: 01/07/23 1328 Normal [facility] Calcium [Mass/volume] in Ser um or PlasmaOrdered By: Fozia Robert on 01-07-2023 Calcium [Mass/Vol] 9.4 mg/dL 8.6-10.3 [facility] Carbon dioxide, total [Moles /volume] in Serum or PlasmaOrdered By: Fozia Robert on 01-07-2023 CO2 [Moles/Vol] 31.4 mmol/L 21.0-31.0 [facility] Chloride [Moles/volume] in S manuela or PlasmaOrdered By: Fozia Robert on 01-07-2023 Chloride [Moles/Vol] 104 mmol/L 98-107 [facility] Complete Blood Count Auto Di ffon 01-07-2023 Basophils (Bld) [#/Vol] 0.1 10*3/uL Normal 0.0-0.2 [facility] Comment on above: Result Comment: PERF ORMED BY: [place] [address] PATHOLOGIST [employer] AYANNA MARADIAGA M.D. Performed By: #### C BC, HS TROP, CMP, CK #### [place] [address] [place] Basophils/100 WBC (Bld) 1.5 % Normal . [facility] Comment on above: Performed By: #### C BC, HS TROP, CMP, CK #### [address] Eosinophils (Bld) [#/Vol] 0.3 10*3/uL Normal 0.0-0.45 [facility] Comment on above: Performed By: #### C BC, HS TROP, CMP, CK #### [address] Eosinophils/100 WBC (Bld) 6.3 % Normal . [facility] Comment on above: Performed By: #### C BC, HS TROP, CMP, CK #### [address] Erythrocyte distribution width (RBC) [Ratio] 13.5 % Normal 11.9-15.3 [facility] Comment on above: Performed By: #### C BC, HS TROP, CMP, CK #### [address] Hematocrit (Bld) [Volume fraction] 41.1 % Normal 34.0-46.4 [facility] Comment on above: Performed By: #### C BC, HS TROP, CMP, CK #### [address] Hemoglobin (Bld) [Mass/Vol] 14.3 g/dL Normal 11.8-15.4 [facility] Comment on above: Performed By: #### C BC, HS TROP, CMP, CK #### [place] [address] [place] Lymphocytes (Bld) [#/Vol] 1.4 10*3/uL Normal 1.00-4.8 [facility] Comment on above: Performed By: #### C BC, HS TROP, CMP, CK #### [place] [address] [place] Lymphocytes/100 WBC (Bld) 26.9 % Normal . [facility] Comment on above: Performed By: #### C BC, HS TROP, CMP, CK #### [address] MCH (RBC) [Entitic mass] 30.1 pg Normal 24.7-34.3 [facility] Comment on above: Performed By: #### C BC, HS TROP, CMP, CK #### [address] MCV (RBC) [Entitic vol] 86.8 fL Normal 80-100 [facility] Comment on above: Performed By: #### C BC, HS TROP, CMP, CK #### [address] Mean Corpuscular HGB Conc 34.7 g/dL Normal 32.0-35.0 [facility] Comment on above: Performed By: #### C BC, HS TROP, CMP, CK #### [address] Monocytes (Bld) [#/Vol] 0.4 10*3/uL Normal 0.0-0.8 [facility] Comment on above: Performed By: #### C BC, HS TROP, CMP, CK #### [address] Monocytes/100 WBC (Bld) 15.51 % Normal 0.00-20.00 [facility] Comment on above: Performed By: #### C BC, HS TROP, CMP, CK #### [address] Monocytes/100 WBC (Bld) 8.6 % Normal . [facility] Comment on above: Performed By: #### C BC, HS TROP, CMP, CK #### [address] Neutrophils (Bld) [#/Vol] 2.9 10*3/uL Normal 1.8-7.7 [facility] Comment on above: Performed By: #### C BC, HS TROP, CMP, CK #### [place] [address] [place] Neutrophils/100 WBC (Bld) 56.7 % Normal . [facility] Comment on above: Performed By: #### C BC, HS TROP, CMP, CK #### [facility] [address] NRBC% 0.1 /100{WBC} Normal 0-0.5 [facility] Comment on above: Performed By: #### C BC, HS TROP, CMP, CK #### [facility] [address] Platelet mean volume (Bld) [Entitic vol] 6.9 fL Normal 6.3-10.7 [facility] Comment on above: Performed By: #### C BC, HS TROP, CMP, CK #### [address] Platelets (Bld) [#/Vol] 325 10*3/uL Normal 150-450 [facility] Comment on above: Performed By: #### C BC, HS TROP, CMP, CK #### [address] RBC (Bld) [#/Vol] 4.74 10*6/uL Normal 3.60-5.00 [facility] Comment on above: Performed By: #### C BC, HS TROP, CMP, CK #### [address] WBC (Bld) [#/Vol] 5.1 10*3/uL Normal 3.8-11.6 [facility] Comment on above: Performed By: #### C BC, HS TROP, CMP, CK #### [address] Comprehensive Metabolic Pane shalom 01-07-2023 Albumin [Mass/Vol] 4.4 g/dL Normal 3.5-5.7 [facility] Comment on above: Performed By: #### C BC, HS TROP, CMP, CK #### [address] Albumin/Globulin [Mass ratio] 1.6 {ratio} Normal [facility] Comment on above: Performed By: #### C BC, HS TROP, CMP, CK #### [facility] [address] ALP [Catalytic activity/Vol] 51 U/L Normal 34-104 [facility] Comment on above: Performed By: #### C BC, HS TROP, CMP, CK #### [facility] [address] ALT [Catalytic activity/Vol] 15 U/L Normal 7-52 [facility] Comment on above: Performed By: #### C BC, HS TROP, CMP, CK #### [facility] [address] Anion gap [Moles/Vol] 8.8 mmol/L Normal 6.0-15.0 [facility] Comment on above: Performed By: #### C BC, HS TROP, CMP, CK #### [facility] [address] AST [Catalytic activity/Vol] 22 U/L Normal 13-39 [facility] Comment on above: Performed By: #### C BC, HS TROP, CMP, CK #### [facility] [address] Bilirubin [Mass/Vol] 0.5 mg/dL Normal 0.3-1.0 [facility] Comment on above: Performed By: #### C BC, HS TROP, CMP, CK #### [facility] [address] Calcium [Mass/Vol] 9.4 mg/dL Normal 8.6-10.3 [facility] Comment on above: Performed By: #### C BC, HS TROP, CMP, CK #### [facility] [address] [place] [address] [place] Chloride [Moles/Vol] 104 mmol/L Normal 98-107 [facility] [facility] Comment on above: Performed By: #### C BC, HS TROP, CMP, CK #### [facility] [address] [place] [address] [place] CO2 [Moles/Vol] 31.4 mmol/L High 21.0-31.0 [facility] Comment on above: Performed By: #### C BC, HS TROP, CMP, CK #### [facility] [address] Creatinine [Mass/Vol] 0.84 mg/dL Normal 0.60-1.20 [facility] Comment on above: Performed By: #### C BC, HS TROP, CMP, CK #### [facility] [address] Creatinine Clr Calc Pharmacy 59.57 [facility] Comment on above: Result Comment: PERF ORMED BY: [place] [address] PATHOLOGIST [employer] AYANNA MARADIAGA M.D. Performed By: #### C BC, HS TROP, CMP, CK #### [address] GFR/1.73 sq M.predicted MDRD (S/P/Bld) [Vol rate/Area] mL/min/{1.73_m2} [facility] Comment on above: Performed By: #### C BC, HS TROP, CMP, CK #### [facility] [address] Globulin (S) [Mass/Vol] 2.8 g/dL [facility] Comment on above: Performed By: #### C BC, HS TROP, CMP, CK #### [address] Glucose [Mass/Vol] 91 mg/dL Normal 70-100 [facility] Comment on above: Result Comment: [place] Glucose Reference Range is dependent on time and content of last meal. Glucose of more than 200 mg/dL in a nonstressed, ambulatory subject supports the diagnosis of Diabetes Mellitus. ADA recommended reference range Performed By: #### C BC, HS TROP, CMP, CK #### [facility] [address] Potassium [Moles/Vol] 4.2 mmol/L Normal 3.5-5.1 [facility] Comment on above: Performed By: #### C BC, HS TROP, CMP, CK #### [facility] [address] [place] [address] [place] Protein [Mass/Vol] 7.2 g/dL Normal 6.4-8.9 [facility] Comment on above: Performed By: #### C BC, HS TROP, CMP, CK #### [facility] [address] [place] [address] [place] Sodium [Moles/Vol] 140 mmol/L Normal 136-145 [facility] Comment on above: Performed By: #### C BC, HS TROP, CMP, CK #### [facility] [address] Urea nitrogen [Mass/Vol] 14 mg/dL Normal 7-25 [facility] Comment on above: Performed By: #### C BC, HS TROP, CMP, CK #### [facility] [address] [place] [id number] [facility] Creatine Kinaseon 01-07-2023 CK [Catalytic activity/Vol] 131 U/L Normal 30-223 [facility] Comment on above: Performed By: #### C BC, HS TROP, CMP, CK #### [facility] [address] Creatine kinase [Enzymatic a ctivity/volume] in Serum or PlasmaOrdered By: Fozia Robert on 01-07-2023 CK [Catalytic activity/Vol] 131 U/L 30-223 [facility] Creatinine [Mass/volume] in Serum or PlasmaOrdered By: Fozia Robert on 01-07-2023 Creatinine [Mass/Vol] 0.84 mg/dL 0.60-1.20 [facility] ECG 12 lead ECGon 01-07-2023 ECG 12 lead ECG [facility] Main [place] [address] [place] [address] Electrocardiograph Report Signed Patient: Ivonne Echevarria MR#: [id number] : 1955 Acct:[id number] Age/Sex: 67 / F ADM Date: 01/07/23 Loc: ER Room: Type: [facility] ER Attending Dr: Ordering Provider: Fozia Robert MD Date of Service: 01/07/2308/31/1239 ECG/ECG 12 lead ECG: Recheck/Abnormal Lab/Rx Copies to: Test Reason : Blood Pressure : 210/098 mmHG Vent. Rate : 074 BPM Atrial Rate : 074 BPM P-R Int : 156 ms QRS Dur : 082 ms QT Int : 378 ms P-R-T Axes : 060 047 045 degrees QTc Int : 419 ms Normal sinus rhythm Possible Left atrial enlargement Borderline ECG When compared with ECG of 27-SEP-2018 12:15, Borderline criteria for Inferior infarct are no longer present Nonspecific T wave abnormality, improved in Inferior leads Nonspecific T wave abnormality no longer evident in Anterior leads QT has shortened Confirmed by FOZIA ROBERT MD ([id number]) on 01/07/2023 3:54:09 PM Referred By: Electronically Signed By:FOZIA ROBERT MD Transcribed By: MUS Signed By Fozia Robert MD 01/07/23 1554 Normal [facility] Eosinophils Auto (Bld) [#/Vo l]Ordered By: Fozia Robert on 01-07-2023 Eosinophils (Bld) [#/Vol] 0.3 10*3/uL 0.0-0.45 [facility] Eosinophils/100 WBC Auto (Bl d)Ordered By: Fozia Robert on 01-07-2023 Eosinophils/100 WBC (Bld) 6.3 % . [facility] Erythrocyte distribution wid th Auto (RBC) [Ratio]Ordered By: Fozia Robert on 01-07-2023 Erythrocyte distribution width (RBC) [Ratio] 13.5 % 11.9-15.3 [facility] Globulin Calc (S) [Mass/Vol] Ordered By: Fozia Robert on 01-07-2023 Globulin (S) [Mass/Vol] 2.8 g/dL [facility] Glucose [Mass/volume] in Ser um or PlasmaOrdered By: Fozia Robert on 01-07-2023 Glucose [Mass/Vol] 91 mg/dL 70-100 [facility] Comment on above: ADA recommended refe rence rangeRandom Glucose Reference Range is dependent on time and content of last meal. Glucose of more than 200 mg/dL in a nonstressed, ambulatory subject supports the diagnosis of Diabetes Mellitus. Hematocrit Auto (Bld) [Volum e fraction]Ordered By: Fozia Robert on 01-07-2023 Hematocrit (Bld) [Volume fraction] 41.1 % 34.0-46.4 [facility] Hemoglobin [Mass/volume] in BloodOrdered By: Fozia Robert on 01-07-2023 Hemoglobin (Bld) [Mass/Vol] 14.3 g/dL 11.8-15.4 [facility] Leukocytes [#/volume] correc isaac for nucleated erythrocytes in Blood by Automated counOrdered By: Fozia Robert on 01-07-2023 WBC corrected for nucl RBC Auto (Bld) [#/Vol] 5.1 10*3/uL 3.8-11.6 [facility] Lymphocytes Auto (Bld) [#/Vo l]Ordered By: Fozia Robert on 01-07-2023 Lymphocytes (Bld) [#/Vol] 1.4 10*3/uL 1.00-4.8 [facility] Lymphocytes/100 WBC Auto (Bl d)Ordered By: Fozia Robert on 01-07-2023 Lymphocytes/100 WBC (Bld) 26.9 % . [facility] MCH Auto (RBC) [Entitic mass ]Ordered By: Fozia Robert on 01-07-2023 MCH (RBC) [Entitic mass] 30.1 pg 24.7-34.3 [facility] MCHC Auto (RBC) [Mass/Vol]Or dered By: Fozia Robert on 01-07-2023 MCHC (RBC) [Mass/Vol] 34.7 g/dL 32.0-35.0 [facility] MCV Auto (RBC) [Entitic vol] Ordered By: Fozia Robert on 01-07-2023 MCV (RBC) [Entitic vol] 86.8 fL 80-100 [facility] Monocyte distribution width [Entitic volume] in Blood by AutomatedOrdered By: Fozia Robert on 01-07-2023 Monocyte distribution width Auto (Bld) [Entitic vol] 15.51 % 0.00-20.00 [facility] Monocytes Auto (Bld) [#/Vol] Ordered By: Fozia Robert on 01-07-2023 Monocytes (Bld) [#/Vol] 0.4 10*3/uL 0.0-0.8 [facility] Monocytes/100 WBC Auto (Bld) Ordered By: Fozia Robert on 01-07-2023 Monocytes/100 WBC (Bld) 8.6 % . [facility] Neutrophils Auto (Bld) [#/Vo l]Ordered By: Fozia Robert on 01-07-2023 Neutrophils (Bld) [#/Vol] 2.9 10*3/uL 1.8-7.7 [facility] Neutrophils/100 WBC Auto (Bl d)Ordered By: Fozia Robert on 01-07-2023 Neutrophils/100 WBC (Bld) 56.7 % . [facility] No Panel InformationOrdered By: Fozia Robert on 01-07-2023 Estimated GFR (CKD-EPI) > 60.0 mL/Min [facility] Creatinine Clearance (Chem 59.57 [facility] Nucleated erythrocytes [Pres ence] in Blood by Automated countOrdered By: Fozia Robert on 01-07-2023 Nucleated RBC Auto Ql (Bld) 0.1 /100{WBC} 0-0.5 [facility] Platelet mean volume Auto (B ld) [Entitic vol]Ordered By: Fozia Robert on 01-07-2023 Platelet mean volume (Bld) [Entitic vol] 6.9 fL 6.3-10.7 [facility] Platelets Auto (Bld) [#/Vol] Ordered By: Fozia Robert on 01-07-2023 Platelets (Bld) [#/Vol] 325 10*3/uL 150-450 [facility] Potassium [Moles/volume] in Serum or PlasmaOrdered By: Fozia Robert on 01-07-2023 Potassium [Moles/Vol] 4.2 mmol/L 3.5-5.1 [facility] Protein [Mass/volume] in Ser um or PlasmaOrdered By: Fozia Robert on 01-07-2023 Protein [Mass/Vol] 7.2 g/dL 6.4-8.9 [facility] RBC Auto (Bld) [#/Vol]Ordere d By: Fozia Robert on 01-07-2023 RBC (Bld) [#/Vol] 4.74 10*6/uL 3.60-5.00 [facility] Serum or plasma albumin/glob ulin mass ratioOrdered By: Fozia Robert on 01-07-2023 Albumin/Globulin [Mass ratio] 1.6 {ratio} [facility] Serum or plasma anion gap de terminationOrdered By: Fozia Robert on 01-07-2023 Anion gap [Moles/Vol] 8.8 mmol/L 6.0-15.0 [facility] Sodium [Moles/volume] in Ser um or PlasmaOrdered By: Fozia Robert on 01-07-2023 Sodium [Moles/Vol] 140 mmol/L 136-145 [facility] Troponin I High Sensitivityo n 01-07-2023 Troponin I High Sensitivity 2.3 pg/mL Normal 0.0-15.0 [facility] Comment on above: Result Comment: PERF ORMED BY: [place] [address] PATHOLOGIST [employer] AYANNA MARADIAGA M.D. Performed By: #### C BC, HS TROP, CMP, CK #### [facility] [address] [place] [address] Troponin I.cardiac [Mass/vol ume] in Serum or Plasma by Detection limit <= 0.01 ng/Ordered By: Fozia Robert on 01-07-2023 Troponin I.cardiac DL <= 0.01 ng/mL [Mass/Vol] 2.3 pg/mL 0.0-15.0 [facility] Urea nitrogen [Mass/volume] in Serum or PlasmaOrdered By: Fozia Robert on 01-07-2023 Urea nitrogen [Mass/Vol] 14 mg/dL 7 [facility] WBC Auto (Bld) [#/Vol]Ordere d By: Fozia Robert on 01-07-2023 WBC (Bld) [#/Vol] 5.1 10*3/uL 3.8-11.6 [facility] Covid-19 PCR (CVDTBH)on 07-10 SARS-CoV-2 (COVID-19) RNA LESLY+probe Ql (Unsp spec) Not detected Normal NOT DETECTED [facility] Comment on above: Result Comment: This test is not yet approved or cleared by the [place] FDA. When there are no FDA-approved or cleared tests available, and other criteria are met, FDA can make tests available under an emergency access mechanism called an Emergency Use Authorization (EUA). The EUA for this test is supported by the [place] of Health and Human Service's (HHS's) declaration that circumstances exist to justify the emergency use of in vitro diagnostics for the detection and/or diagnosis of the virus that causes COVID-19. This EUA will remain in effect (meaning this test can be used) for the duration of the COVID-19 declaration justifying emergency of IVDs, unless it is terminated or revoked by FDA (after which the test may no longer be used). When diagnostic testing is negative, the possibility of a false negative should be considered in the context of a patient's recent exposures and the presence of clinical signs and symptoms consistent with SARS-CoV-2. Performed By: #### C VDTBH #### [facility] [address] [place] [address] Dr. Allison Faulkner INFLUENZA A AND B AGon 08-04 [facility] SEE BELOW Normal [facility] Comment on above: Result Comment: Nega tive for Flu A protein angiten. Infection due to Flu A cannot be ruled out. Flu A angiten in the sample may be below the detection limit of the test. Performed By: #### I NFLUAB, RSV #### [facility] [address] [place] [address] Dr. [facility] Normal [facility] Comment on above: Result Comment: Nega tive for Flu B protein antigen. Infection due to Flu B cannot be ruled out. Flu B antigen in the sample may be below the detection limit of the test. Performed By: #### I NFLUAB, RSV #### [facility] [address] [place] [address] Dr. Allison Faulkner INFLUENZA A AG Negative Normal NEGATIVE SEE COMMENT [facility] Comment on above: Performed By: #### I NFLUAB, RSV #### [facility] [address] [place] [address] Dr. Allison Faulkner INFLUENZA B AG Negative Normal NEGATIVE SEE COMMENT [facility] Comment on above: Performed By: #### I NFLUAB, RSV #### [facility] [address] [place], [place] [address] Dr. Allison Faulkner RSVon 08-04-2022 RSV AG Negative Normal NEGATIVE [facility] Comment on above: Performed By: #### I NFLUAB, RSV #### [facility] [address] [place], [place] [address] CARDIAC SCORINGon 022 CT CARDIAC SCORING Addendum Begins Patient Name: IVONNE ECHEVARRIA ADDENDUM: Technical: The following is to serve as an over-read for an unenhanced cardiac CT, to evaluate the extra vascular structures. Contiguous unenhanced CT sections are performed from the level of the thu to the upper abdomen. Findings: There is a subcentimeter focal infiltrate or scarring in the posteromedial right lower lobe (image 9). This is of doubtful acute significance. The remaining visualized portions of both lungs are clear. There is no sign of pathologic lymph node enlargement. There is no pericardial or pleural effusion. Images through the upper abdomen are unremarkable. The visualized osseous and soft tissue structures of the chest wall are intact. Impression: The extra vascular structures have an unremarkable CT appearance. Electronically signed by: GILBERTO HATCH MD Addendum Ends Patient Name: IVONNE ECHEVARRIA STUDY: CT CARDIAC SCORING; 05/31/2022 11:43 am INDICATION: risk factors I10: Essential hypertension E78.5: Hyperlipidemia. COMPARISON: None. ACCESSION NUMBER(S): [id number] ORDERING CLINICIAN: SAMANTHA ROBERT TECHNIQUE: Using prospective ECG gating, CT scan of the coronary arteries was performed without intravenous contrast. Coronary calcium scoring was performed according to the method of Agatston. CT Dose-Length Product (DLP): 42.2 mGy*cm CT Dose Reduction Employed: Yes, prospective gating, iterative reconstruction. FINDINGS: The score and distribution of calcium in the coronary arteries is as follows: LM 0 LAD 18 LCx 0 RCA 0 Total 18 The visualized ascending thoracic aorta measures 3.2 cm in diameter. The heart is normal in size. No pericardial effusion is present. The main pulmonary artery, right and left pulmonary artery are normal in size. IMPRESSION: 1. Coronary artery calcium score of 18*. 2. NGO 64th percentile for age, gender, and race in asymptomatic patients. *Coronary Artery Agatston score Score risk Very low 1-99 Mildly increased 100-299 Moderately increased >300 Moderate to severely increased >800 Rhonda et al. JCCT 2016 (http://dx.doi.org/10.1016/ j.jcct.2016.11.003) NGO Percentile In general, greater than 75th percentile for age, gender, and race is considered to be a higher relative risk and higher lifetime risk condition. Greater than 75th percentile=moderate to severely increased relative risk irrespective of the score. Advise using NGO 10 year CHD risk calculator below for better discrimination of risk. NGO 10-Year CHD Risk with Coronary Artery Calcification can be calcuate using link below https://www.ngo-nhlbi.org/ MESACHDRisk/MesaRiskScore/R iskScore.aspx Ashley blue al. JACC 2014 (http://dx.doi.org/10.1016/ j.j acc.2015.08.035) [place] [employer] Electrician: Dr. Julio Cannon, Date: 05/31/2022 12:28 pm Electronically signed by: GILBERTO HATCH MD Normal [facility] CT Cardiac Scoringon 022 CT Cardiac Scoring Normal -[facility] osmar 250 DO Work Phone: Office Visit (Cardiology)on 05-15-2022 Follow-up visit Diagnoses/Problems Assessed Palpitations (785.1) (R00.2) PVC symptomatic Reported 3% PVC burden [facility] summer 2021. We will request records. Essential hypertension (401.9) (I10) optimal in office Hyperlipidemia (272.4) (E78.5) Moderate intensity statin November 2021 HDL 61, LDL 118 Normal nuclear stress test (V72.85) September 2011 perfusion study low likelihood critical coronary artery disease Daily activity greater than 4 METS without concerning symptoms Normal echocardiogram (V72.85) 2006 echo LVEF 60% Overweight with body mass index (BMI) of 27 to 27.9 in adult (278.02,V85.23) (E66.3,Z68.27) Reviewed the merits of healthy lifestyle choices on overall cardiovascular health. Orders Essential hypertension, Hyperlipidemia CT Cardiac Scoring; Status:Hold For - Scheduling; Requested for:15May2022; Patient taking Metformin or Derivatives? : No Radiologist to Determine Optimal Study : Y What are the patient's signs and symptoms? : risk factors Overweight with body mass index (BMI) of 27 to 27.9 in adult Healthy Weight Tips; Status:Complete; Done: 15May2022 Patient Instructions Please bring all medicines, vitamins, and herbal supplements with you when you come to the office. Prescriptions will not be filled unless you are compliant with your follow up appointments or have a follow up appointment scheduled as per instruction of your physician. Refills should be requested at the time of your visit. PLAN: Through informed decision making process incorporating patients unique circumstances, the following treatment plan will be initiated: 1. Prescription drug management of cardiovascular medication for efficacy, adherence to treatment, side effect assessment and polypharmacy. Current treatment clinically warranted and to continue without modifications. 2. Calcium Score 3. Return for follow-up; in the interim, contact the office if new symptoms arise. Dr. Damico in 6 month Chief Complaint Annual f/u: 'seem to be doing ok' IVONNE ECHEVARRIA is being seen for an annual follow-up of palpitations. Patient presents to the office today ambulatory with steady gait. Last evaluated in clinic Dr. Christian May 2021. Patient denies hospitalizations or significant changes to interval medical history since last office follow-up. She was evaluated by [facility] cardiology for second opinion regarding palpitations. Reports a 14-day [place] with 3% PVC burden. Bisoprolol changed to Toprol 25 mg daily, increased to 37.5 mg daily by PCP approximately 2 months ago. She was unable to tolerate magnesium oxide due to GI complaints. She reports a home sleep study that did not indicate need for additional testing. No caffeine, no alcohol, no [id number]-[id number] medications or energy drinks. Encouraged to get adequate sleep and techniques for stress reduction. Patient presents to the office today where she continues to describe PVCs, usually occur at rest. Denies any dizziness or lightheadedness, no prior syncopal episodes. From an activity standpoint she walks daily 30-60 minutes, completes housework including vacuuming and mopping, has stairs at home. She denies any type of exertional complaints, there have been no change in exercise capacity or functional tolerance. Primary prevention: Hypertension -optimal Hyperlipidemia -on statin with November 2021 HDL 61, LDL 118 Non-smoker No diabetes Discussed option of calcium score as an additional risk factor assessment for coronary artery disease. She is interested in testing. Otherwise, reviewed the etiology of PVCs in the setting of prior negative ischemic work-up and structurally normal heart. Secondary causes have been excluded. Low PVC burden. She has been on Paxil greater than 30 years. History of Present Illness The patient states she has been generally doing well since the last visit. Comorbid Illnesses: hypertension and hyperlipidemia. Symptoms: denies chest pain at rest, denies exertional chest pain, denies dyspnea, denies fatigue, stable exercise intolerance, stable palpitations, denies edema, denies orthopnea, denies dizziness and denies orthostatic dizziness. Associated symptoms: no syncope. Her symptoms do not limit her activities. Disease Monitoring: The patient has had a stable weight. Medications: the patient is adherent with her medication regimen. She denies medication side effects. Current Meds Medication NameInstruction Aspirin EC 81 MG Oral Tablet Delayed ReleaseTAKE 1 TABLET DAILY. Calcium Carbonate 600 MG Oral TabletTAKE 1 TABLET DAILY. CoQ10 200 MG Oral Capsuleone daily Estradiol 0.1 MG/GM Vaginal CreamINSERT / APPLICATORFUL (1GM) VAGINALLY TWICE WEEKLY. Multi Vitamin Oral TabletTAKE 1 TABLET DAILY. Pantoprazole Sodium 40 MG Oral Tablet Delayed ReleaseTAKE 1 TABLET DAILY. PARoxetine HCl - 20 MG Oral TabletTAKE 1 TABLET DAILY. Rosuvastatin Calcium 10 MG Oral TabletTake 1 tablet by mouth daily Toprol XL 25 MG Oral Tablet Extended (more content not included)... Normal [employer] [employer] Tobacco Screening.on 022 Tobacco use status HS b) No -[facility] osmar 250 DO Work Phone: Tobacco Screening. Yes -[facility] DO Work Phone: PAP ACOG PANEL 2: 30 to 65on 04-20-2022 . . Normal [facility] Comment on above: Result Comment: Perf ormed at: WB Performed By: #### [id number] #### [facility] [address] [place] [address] [address] Allison Faulkner Age Gdln ACOG Testing 30-65 Normal [facility] Comment on above: Performed By: #### [id number] #### [facility] [address] [place] [address] Dr. Allison Faulkner DIAGNOSIS: Comment Normal [facility] Comment on above: Result Comment: NEGA TIVE FOR INTRAEPITHELIAL LESION OR MALIGNANCY. REACTIVE CELLULAR CHANGES AND/OR REPAIR ARE PRESENT. Performed at: WB Performed By: #### [id number] #### [facility] [address] [place] [address] Dr. Allison Faulkner Electronically signed by: Comment Normal [facility] Comment on above: Result Comment: Teresa Joaquin MD, Pathologist Performed at: WB Performed By: #### [id number] #### [facility] [address] [place] [address] Dr. Allison Faulkner HPV Aptima Negative Normal Negative [facility] Comment on above: Result Comment: This nucleic acid amplification test detects fourteen high-risk HPV types (16,18,31,33,35,39,45,51,52,56,58,59,66,68) without differentiation. Performed at: =G Performed By: #### [id number] #### [facility] [address] [place] [address] Dr. Allison Faulkner Methodology: Comment Normal [facility] Comment on above: Result Comment: This liquid based ThinPrep(R) pap test was screened with the use of an image guided system. Performed at: WB Performed By: #### [id number] #### [facility] [address] [place] [address] Dr. Allison Faulkner Note: Comment Normal [facility] Comment on above: Result Comment: The Pap smear is a screening test designed to aid in the detection of premalignant and malignant conditions of the uterine cervix. It is not a diagnostic procedure and should not be used as the sole means of detecting cervical cancer. Both false-positive and false-negative reports do occur. . Performed at: WB Performed By: #### [id number] #### [facility] [address] [place] [address] Dr. Allison Faulkner Performed by: Comment Normal [facility] Comment on above: Result Comment: Rommel Nation, Vascular Neurologist (ASCP) Performed at: WB Performed By: #### [id number] #### [facility] [address] [place], [place] [address] Dr. Allison Faulkner Specimen adequacy: Comment Normal [facility] Comment on above: Result Comment: Sati sfactory for evaluation. Endocervical and/or squamous metaplastic cells (endocervical component) are present. Performed at: WB Performed By: #### [id number] #### [facility] [address] [place], [place] [address] Dr. Allison Faulkner MG MAMM SCREEN 3D LUAN CADon 04-18-2022 MG MAMM SCREEN 3D LUAN CAD Patient: IVONNE ECHEVARRIA Exam Date: 04/18/2022 : 1955 Gender:F Ordering : DR TYLER ERVIN . Admission #: [id number] Family : Order #: [id number] CLICK HERE TO VIEW EXAM RADIOLOGY REPORT PROCEDURE: MAMMOGRAM SCREENING 3D BILATERAL CAD COMPARISON: MG MAMM SCREEN LUAN W CAD, 03/19/2020. MG MAMM SCREEN 3D LUAN CAD, 03/29/2021. INDICATIONS: Screening mammography Calculator Name NCI Breast Cancer Risk Assessment Tool 5 Year Breast Cancer Risk 2.50% Lifetime Breast Cancer Risk 9.20% Personal Breast Cancer No Personal Ovarian Cancer No Treatments None Family Cancers Aunt-paternal with breast cancer at age 60; Brother with rectal cancer at age 70. LOCATION: [facility] System BREAST COMPOSITION: Extremely dense, which lowers the sensitivity of mammography. FINDINGS: DIAGNOSTIC CATEGORY 2--BENIGN FINDING. NO CHANGE FROM COMPARISON. Scattered benign-appearing calcifications are present. Scattered benign-appearing lymph nodes are present. RIGHT BREAST: No significant suspicious finding. Linear scar marker. LEFT BREAST: No significant suspicious finding. RECOMMENDATIONS: ROUTINE MAMMOGRAM AND CLINICAL EVALUATION IN 12 MONTHS. PLEASE NOTE: A NORMAL MAMMOGRAM DOES NOT EXCLUDE THE POSSIBILITY OF BREAST CANCER. A CLINICALLY SUSPICIOUS PALPABLE LUMP SHOULD BE BIOPSIED. Dictated by: Galina Becerril MD on 04/18/2022 at 10:30 Approved by: Galina Becerril MD on 04/18/2022 at 10:32 Normal [facility] XR DEXA BONE DENSITYon 04-18 XR DEXA BONE DENSITY EXAMINATION: XR DEX A BONE DENSITY, 04/18/2022 9:32 AM EDT HISTORY: Gynecologic examination COMPARISON: DEXA bone densitometry 03/19/2020 TECHNIQUE: Dual-energy X-ray absorptiometry (DEXA) bone density study performed for the axial skeleton. FINDINGS: SPINE ANALYSIS: Average bone mineral density is 1.137 g/cm2. T-score (standard deviation relative to young adult mean): -0.5 . -3.0% change since prior study. HIP ANALYSIS: Lowest bone mineral density is within the right femoral neck, 0.742 g/cm2. T-score (standard deviation relative to young adult mean): -2.1 . -2.4% change since prior study. IMPRESSION: [employer] Classification: Osteopenia - Moderate Fracture Risk Electronically authenticated by: BRIAN STEVEN Date: 2022-04-18 16:16 Normal [facility] Complete Blood Count with Au to Diffon 11-08-2021 Basophils (Bld) [#/Vol] 0.10 10*3/uL Normal 0.00-0.20 [facility] [employer] Comment on above: Performed By: #### L IPD, CBCAD, CMP #### [facility] [address] [place], [place] [id number] Basophils/100 WBC (Bld) 1.7 % Normal [facility] Comment on above: Performed By: #### L IPD, CBCAD, CMP #### [facility] [address] [place], [place] [id number] Eosinophils (Bld) [#/Vol] 0.65 10*3/uL High 0.02-0.50 [facility] [employer] Comment on above: Performed By: #### L IPD, CBCAD, CMP #### [facility] [address] [place], [place] [id number] Eosinophils/100 WBC (Bld) 10.9 % Normal [facility] [employer] Comment on above: Performed By: #### L IPD, CBCAD, CMP #### [facility] [address] [place], [place] [id number] Erythrocyte distribution width (RBC) [Ratio] 12.0 % Normal 11.0-15.0 [facility] [employer] Comment on above: Performed By: #### L IPD, CBCAD, CMP #### [facility] [address], [place] [id number] Hematocrit (Bld) [Volume fraction] 41.5 % Normal 35.0-47.0 [facility] Comment on above: Performed By: #### L IPD, CBCAD, CMP #### [facility] [address], [place] [id number] Hemoglobin (Bld) [Mass/Vol] 13.5 g/dL Normal 11.6-15.5 [facility] Comment on above: Performed By: #### L IPD, CBCAD, CMP #### [facility] [address], [place] [id number] Lymphocytes (Bld) [#/Vol] 1.5 10*3/uL Normal 0.9-3.9 [facility] Comment on above: Performed By: #### L IPD, CBCAD, CMP #### [facility] [address], [place] [id number] Lymphocytes/100 WBC (Bld) 25.0 % Normal [facility] Comment on above: Performed By: #### L IPD, CBCAD, CMP #### [facility] [address] [place], [place] [id number] MCH (RBC) [Entitic mass] 29.6 pg Normal 27.0-33.0 [facility] Comment on above: Performed By: #### L IPD, CBCAD, CMP #### [facility] [address] [place], [place] [id number] MCHC (RBC) [Mass/Vol] 32.5 g/dL Normal 32.0-36.0 [facility] Comment on above: Performed By: #### L IPD, CBCAD, CMP #### [facility] [address] [place], [place] [id number] MCV (RBC) [Entitic vol] 91 fL Normal 80-100 [facility] Comment on above: Performed By: #### L IPD, CBCAD, CMP #### [facility] [address] [place], [place] [id number] Monocytes (Bld) [#/Vol] 0.5 10*3/uL Normal 0.2-0.9 [facility] Comment on above: Performed By: #### L IPD, CBCAD, CMP #### [facility] [address], [place] [id number] Monocytes/100 WBC (Bld) 8.1 % Normal [facility] Comment on above: Performed By: #### L IPD, CBCAD, CMP #### [facility] [address], [place] [id number] Neutrophils (Bld) [#/Vol] 3.2 10*3/uL Normal 1.5-7.8 [facility] Comment on above: Performed By: #### L IPD, CBCAD, CMP #### [facility] [address] [place], [place] [id number] Neutrophils/100 WBC (Bld) 54.1 % Normal [facility] Comment on above: Performed By: #### L IPD, CBCAD, CMP #### [facility] [address] [place], [place] [id number] Platelet mean volume (Bld) [Entitic vol] 9.90 fL Normal 7.50-12.50 [facility] Comment on above: Performed By: #### L IPD, CBCAD, CMP #### [facility] [address] [place], [place] [id number] Platelets (Bld) [#/Vol] 336 10*3/uL Normal 140-400 [facility] Comment on above: Performed By: #### L IPD, CBCAD, CMP #### [facility] [address] [place], [place] [id number] RBC (Bld) [#/Vol] 4.56 10*6/uL Normal 3.90-5.20 [facility] Comment on above: Performed By: #### L IPD, CBCAD, CMP #### [facility] [address] [place], [place] [id number] RDW-SD 40.6 fL Normal 37.0-50.0 [facility] Comment on above: Performed By: #### L IPD, CBCAD, CMP #### [facility] [address] [place], [place] [id number] WBC (Bld) [#/Vol] 6.0 10*3/uL Normal 3.8-11.0 [facility] Comment on above: Performed By: #### L IPD, CBCAD, CMP #### [facility] [address] [place], [place] [id number] Comprehensive Metabolic Pane shalom 11-08-2021 Albumin [Mass/Vol] 4.6 g/dL Normal 3.6-5.1 [facility] Comment on above: Performed By: #### L IPD, CBCAD, CMP #### [facility] [address] [place], [place] [id number] Albumin/Globulin [Mass ratio] 2.1 {ratio} Normal 1.0-2.5 [facility] Comment on above: Performed By: #### L IPD, CBCAD, CMP #### [facility] [address] [place], [place] [id number] ALP [Catalytic activity/Vol] 68 U/L Normal 35-119 [facility] Comment on above: Performed By: #### L IPD, CBCAD, CMP #### [facility] [address] [place], [place] [id number] ALT [Catalytic activity/Vol] 18 U/L Normal 6-33 [facility] Comment on above: Result Comment: 06/08 Female reference range changed. Performed By: #### L IPD, CBCAD, CMP #### [facility] [address] [place], [place] [id number] Anion gap [Moles/Vol] 15 mmol/L Normal 12-20 [facility] Comment on above: Result Comment: Effe ctive 07/14/2019 reference range changed. Performed By: #### L IPD, CBCAD, CMP #### [facility] [address] [place], [place] [id number] AST [Catalytic activity/Vol] 24 U/L Normal 9-34 [facility] Comment on above: Performed By: #### L IPD, CBCAD, CMP #### [facility] [address] [place], [place] [id number] Bilirubin [Mass/Vol] 0.71 mg/dL Normal 0.30-1.20 [facility] Comment on above: Performed By: #### L IPD, CBCAD, CMP #### [facility] [address] [place], [place] [id number] BUN/CREA 34 Ratio High 6-22 [facility] Comment on above: Performed By: #### L IPD, CBCAD, CMP #### [facility] [address] [place], [place] [id number] Calcium [Mass/Vol] 9.3 mg/dL Normal 8.6-10.2 [facility] Comment on above: Performed By: #### L IPD, CBCAD, CMP #### [facility] [address] [place], [place] [id number] Chloride [Moles/Vol] 105 mmol/L Normal 98-107 [facility] Comment on above: Performed By: #### L IPD, CBCAD, CMP #### [facility] [address] [place], [place] [id number] CO2 [Moles/Vol] 28 mmol/L Normal 20-31 [facility] Comment on above: Performed By: #### L IPD, CBCAD, CMP #### [facility] [address] [place], [place] [id number] Creatinine [Mass/Vol] 0.6 mg/dL Normal 0.6-1.4 [facility] Comment on above: Performed By: #### L IPD, CBCAD, CMP #### [facility] [address] [place], [place] [id number] eGFRAA 122 mL/min/1.73m2 Normal >60 [facility] Comment on above: Performed By: #### L IPD, CBCAD, CMP #### [facility] [address] [place], [place] [id number] eGFRNAA 100 mL/min/1.73m2 Normal >60 [facility] Comment on above: Performed By: #### L IPD, CBCAD, CMP #### [facility] [address] [place], [place] [id number] Globulin (S) [Mass/Vol] 2.2 g/dL Normal 1.9-3.7 [facility] [employer] Comment on above: Performed By: #### L IPD, CBCAD, CMP #### [facility] [address] [place], [place] [id number] Glucose [Mass/Vol] 86 mg/dL Normal 65-99 [facility] [place] [employer] [employer] Comment on above: Result Comment: For FASTING Glucose --- ADA reference ranges: Normal 65-99 mg/dl Prediabetes 100-125 Diabetes >/= 126 Performed By: #### L IPD, CBCAD, CMP #### [facility] [address] [place], [place] [id number] Potassium [Moles/Vol] 4.4 mmol/L Normal 3.5-5.5 [facility] Techn[facility] Comment on above: Performed By: #### L IPD, CBCAD, CMP #### [facility] [address] [place], [place] [id number] Protein [Mass/Vol] 6.8 g/dL Normal 6.1-8.1 [facility] [place] [employer] Comment on above: Performed By: #### L IPD, CBCAD, CMP #### [facility] [address] [place], [place] [id number] Sodium [Moles/Vol] 143 mmol/L Normal 135-146 [facility] [place] [employer] Comment on above: Performed By: #### L IPD, CBCAD, CMP #### [facility] [address] [place], [place] [id number] Urea nitrogen [Mass/Vol] 20 mg/dL Normal 7-25 [facility] Comment on above: Performed By: #### L IPD, CBCAD, CMP #### [facility] [address] [place], [place] [id number] Lipid Panelon 11-08-2021 Cholesterol [Mass/Vol] 192 mg/dL Normal 125-200 [facility] Comment on above: Result Comment: Low risk < 200mg/dL Borderline risk 201-239 mg/dl High risk > or equal to 240 Performed By: #### L IPD, CBCAD, CMP #### [facility] [address] [facility] [place] [id number] Cholesterol in HDL [Mass/Vol] 61 mg/dL Normal >40 [facility] [employer] Comment on above: Result Comment: High Cardiovascular Risk HDL <40 mg/dL Low Cardiovascular Risk HDL > or equal to 60 mg/dl Performed By: #### L IPD, CBCAD, CMP #### [facility] [address] [facility] [place] [id number] Cholesterol in LDL [Mass/Vol] 118 mg/dL Normal [facility] Comment on above: Result Comment: LDL ATP III CLASSIFICATION LDL less than 100 mg/dl Optimal LDL 100-129 mg/dl Near or above optimal LDL 130-159 Borderline high LDL 160-189 High LDL greater than 189 mg/dl Very High Performed By: #### L IPD, CBCAD, CMP #### [facility] [address] [place], [place] [id number] Cholesterol in VLDL [Mass/Vol] 13 mg/dL Normal [facility] Comment on above: Performed By: #### L IPD, CBCAD, CMP #### [facility] [address] [place], [place] [id number] Cholesterol.total/Chol esterol in HDL [Mass ratio] 3 {ratio} Normal [facility] Comment on above: Performed By: #### L IPD, CBCAD, CMP #### [facility] [address] [place], [place] [id number] Triglyceride [Mass/Vol] 66 mg/dL Normal 30-150 [facility] [employer] Comment on above: Result Comment: TRIG ATPIII CLASSIFICATIONS TRIG less than 150 mg/dl Normal TRIG 150-199 mg/dl Borderline High TRIG 200-500 mg/dl High TRIG greather than 500 mg/dl Very High Performed By: #### L IPD, CBCAD, CMP #### [facility] [address] [place], [place] [id number] CNOVon 08-12-2021 CNOV Office Visit (CARCMN ) IVONNE ECHEVARRIA ([id number]) 1955 F Date Time Provider Department 08/12/21 9:45 AM GASPER HAMILTON During your visit today, we recorded the following information about you: Pulse Blood pressure Weight Height 67/minute 143/82 67.1 kg 1.575 m Gasper Hamilton MD 08/12/2021 11:45 AM Signed [facility] Department of Cardiovascular Medicine SECTION OF CLINICAL CARDIOLOGY OUTPATIENT VISIT DATE August 12, 2021 OUTPATIENT VISIT TYPE NEW PRIMARY CARE PHYSICIAN : Conchis Zamora, DO [address] [place] [address] REFERRING PHYSICIAN: Teagan Szymanski [address] [facility] [id number] CHIEF COMPLAINT: Second opinion Cardiovascular evaluation HISTORY OF PRESENT ILLNESS: Ms. Echevarria is a 65 year old female who presents today for cardiovascular evaluation. CARDIAC HISTORY: ? Palpitations, evaluated by [facility] as well as Dr. Schneider in [place]. Chronic in nature. Has been on atenolol and digoxin without change, digoxin was stopped. Eventually atenolol was stopped and replaced with bisoprolol 5 mg ? May 2021 outside report: She indicates when she walks, up to 3 miles at a time, she actually feels better. She is less of where palpitations. Indicates that her palpitations worsened 2 to 3 months ago about the same time the dose of estrogen was increased and is unclear if there is any correlation of that. Was taking bisoprolol at nighttime and the suggestion was made for to take it earlier in the day so that he would likely have more effective nighttime which seems to be the most bothersome time for her. A trial for magnesium daily was given the recommendation was made to suggest changing her estrogen dose back to where it was previously ? Strong family history of coronary disease ? Myocardial perfusion study with exercise in 2011 was normal though did note exercise-induced ST-T abnormality, quoted to likely reflect false positivity in view of no provoked chest pain and no evidence of ischemia by perfusion imaging. Patient exercised for 12 minutes. ? Prior lipid panel: LDL 166, HDL 36, total cholesterol 223. On simvastatin 10 mg then changed to Crestor 10 mg ? Most recent LDL from 03/2021 of 103 ? Asthma ? Former smoker ? Per 2019 outside records, indicates some tension type sensation in her chest but this is nonexertional and is not thought to be ischemic CARDIAC MEDS: ? Bisoprolol 5 mg ? Co-Q10 ? Crestor 10 mg TODAY: - Looking for second opinion on heart palpitations - In the past, able to feel when it fluttered, which she describes as a feeling of palpitations that she could feel. - Feels like there are some skipped beats with a headache that resolves. Never woken up at night. She's concerned that this could represent a worsening of her condition and is looking for further workup. - She endorses that her palpitations are much more present when she sleeps on on her right side, not her left. - No orthopnea, shortness of breath, lower extremity edema. - Endorses some back ache when sitting up, pleuritic. - Activity warner, able to walk 3x per day without palpitations. Able to go up a flight of stairs without symptoms. - Patient endorses taking her statin every other day, now increased to daily with her new statin. ASSESSMENT: Ms. Echevarria is a 65 F with PMHx HTN, HLD, who presents for longstanding palpitations. Overall, without evidence of structural cardiac abnormality. ECG today with two PVCs; wish to quantify the ectopy burden with a Zio (she's going to [place] for two weeks but wishes to wear it upon her return; will mail out). TSH has been checked in past and was normal. She snores without witnessed apnea or daytime fatigue (if ectopy burden high, will consider home sleep study). Could consider change in beta sebastien to metoprolol to assess for improvement in palpitation symptoms; will followup on this next visit. LDL rather controlled at 106 mg/dL, now back on daily crestor (was taking q other day). Reassurance given; no indication at this time for echocardiogram. Questions answered; patient feels more reassured. PLAN: - Zio patch to evaluate for PVC burden given her ECG with 2 PVCs over 10 second period. - Follow-up with me virtually in 6 weeks - Continue crestor 10 mg daily PAST MEDICAL HISTORY Diagnosis Date - HLD (hyperlipidemia) - Hypertension - Ventricular flutter (HCC) PAST SURGICAL HISTORY Procedure Laterality Date - SECTION HX - REPAIR ROTATOR CUFF,ACUTE - TONSILLECTOMY HX SOCIAL HISTORY Social History Tobacco Use - Smoking status: Not on file - Smokeless tobacco: Not on file Substance Use Topics - Alcohol use: Not on file - Drug use: Not on file No family (more content not included)... Normal [facility] 07-20-2021 CNPN Telephone (CARCMN) IVONNE ECHEVARRIA ([id number]) 1955 F Date Time Provider Department 07/20/21 GASPER HAMILTON During your visit today, we recorded the following information about you: Radha Katz Adm 07/20/2021 10:53 AM Signed Received by fax multiple Medical Records from [facility]. Pt has future 08/12/[address] appt. Uploaded into Dr. Hamilton OPD folder, scanned into Onbase and placed in Dr Hamilton in basket for review Radha Katz Adm Allergies As of Date: 07/20/2021 Noted Allergy Reaction BIAXIN (CLARITHROMYCIN) 09/29/2016 5 - Intolerance Date Reviewed: Never Reviewed Reason for Visit: Received Outside Medical Records [[id number]] Cmt: [facility] Prescriptions as of 07/20/2021 - ergocalciferol, vitamin D2, (DRISDOL) 50,000 unit capsule Take 1 capsule by mouth twice a week. (FOR EXAMPLE ONE CAPSULE ON SUNDAY AND ONE ON SUNDAY) FOR A TOTAL OF 4 WEEKS, WITH A MEAL - pantoprazole DR (PROTONIX) 40 mg tablet Take 40 mg by mouth once daily. - PARoxetine (PAXIL) 20 mg tablet Take 20 mg by mouth once daily. - atenolol (TENORMIN) 100 mg tablet Take 100 mg by mouth once daily. - rosuvastatin (CRESTOR) 5 mg tablet Take 5 mg by mouth once daily. - MULTIVITAMIN ORAL Take by mouth. - Vit A,C and G-Sfve-M3-Lut-Mn-Glu (EYE-MIRZA EXTRA + LUTEIN) 1000 unit-300mg -100 unit-2 mg tab Take by mouth. - UBIDECARENONE (CO Q-10 ORAL) Take by mouth. - aspirin, enteric coated (ASPIRIN, ENTERIC COATED) 81 mg EC tablet Take 81 mg by mouth once daily. Problem List As Of Date 07/20/2021 Noted Resolved Vitamin D deficiency [E55.9] 10/07/2016 Encounter Status:Closed by SSUHMA MURPHYNA Solomon on 07/20/21 [facility] 07-12-2021 CNPN Telephone (CARCMN) IVONNE ECHEVARRIA ([id number]) 1955 F Date Time Provider Department 07/12/21 GASPER HAMILTON During your visit today, we recorded the following information about you: Radha Katz 07/12/2021 10:17 AM Signed LM for pt requesting Medical Records prior to 08/12/21 appt. Address, Email and Fax provided Radha Solomon [place] Allergies As of Date: 07/12/2021 Noted Allergy Reaction BIAXIN (CLARITHROMYCIN) 09/29/2016 5 - Intolerance Date Reviewed: Never Reviewed Reason for Visit: Request Outside Medical Records [[id number]] Prescriptions as of 07/12/2021 - ergocalciferol, vitamin D2, (DRISDOL) 50,000 unit capsule Take 1 capsule by mouth twice a week. (FOR EXAMPLE ONE CAPSULE ON SUNDAY AND ONE ON SUNDAY) FOR A TOTAL OF 4 WEEKS, WITH A MEAL - pantoprazole DR (PROTONIX) 40 mg tablet Take 40 mg by mouth once daily. - PARoxetine (PAXIL) 20 mg tablet Take 20 mg by mouth once daily. - atenolol (TENORMIN) 100 mg tablet Take 100 mg by mouth once daily. - rosuvastatin (CRESTOR) 5 mg tablet Take 5 mg by mouth once daily. - MULTIVITAMIN ORAL Take by mouth. - Vit A,C and M-Ztjb-F9-Lut-Mn-Glu (EYE-MIRZA EXTRA + LUTEIN) 1000 unit-300mg -100 unit-2 mg tab Take by mouth. - UBIDECARENONE (CO Q-10 ORAL) Take by mouth. - aspirin, enteric coated (ASPIRIN, ENTERIC COATED) 81 mg EC tablet Take 81 mg by mouth once daily. Problem List As Of Date 07/12/2021 Noted Resolved Vitamin D deficiency [E55.9] 10/07/2016 Encounter Status:Closed by RADHA MURPHY on 07/12/21 Normal [facility] Office Visit (Cardiology)on 05-30-2021 Follow-up visit Diagnoses/Problems Assessed Palpitations (785.1) (R00.2) Hyperlipidemia (272.4) (E78.5) Essential hypertension (401.9) (I10) Overweight with body mass index (BMI) of 26 to 26.9 in adult (278.02,V85.22) (E66.3,Z68.26) Patient Instructions By signing my name below, I, Sloan Barreto LPNibjonathon, attest that this documentation has been prepared under the direction and in the presence of Dr. Julio Christian DO. Please bring all medicines, vitamins, and herbal supplements with you when you come to the office. Prescriptions will not be filled unless you are compliant with your follow up appointments or have a follow up appointment scheduled as per instruction of your physician. Refills should be requested at the time of your visit. Follow up in 1 year. Chief Complaint IVONNE ECHEVARRIA is being seen for an annual follow-up of. History of Present Illness Ms. Echevarria is a 65-year-old female seen back today for follow-up on her palpitations. She has had a previous Holter monitor that actually showed relatively low volume of ectopy but she is symptomatic with palpitations. She has had a normal ejection fraction previously estimated with prior testing. She indicates her palpitations seem like they have worsened. They are more bothersome to her. She has no history of syncope or near syncope. She remains active. She indicates when she walks and she sometimes walks up to 3 miles at a time that she actually feels better. She is less aware of the palpitations she has no complaints of chest pain. She has been on bisoprolol chronically for palpitations. She indicates her palpitations worsened 2 to 3 months ago about the same time that her dose of estrogen was increased and it is unclear if there is any correlation to that. She otherwise has no complaints. Physical exam: Neck: No carotid bruits are heard Lungs: Clear Heart: Regular rate and rhythm without murmurs or extra sounds Extremities: No edema Recommendation is continuation of her bisoprolol. She is taking it at nighttime. I suggested she try taking it at different times possibly earlier in the day so that it would likely have more effect at nighttime which seems to be the most bothersome time for her. She will also try magnesium daily and she is given a prescription for Mag-Ox. If her symptoms change and she starts to have more difficulty when she is ambulating then I would suggest repeating testing. I also suggested she try changing her estrogen dose back to where her baseline previously was to see if this makes any difference. She will return in 1 year for follow-up or sooner if she has further problems. Surgical History Problems History of section History of Complete colonoscopy History of Rotator cuff repair History of Tonsillectomy Current Meds Medication NameInstruction Aspirin EC 81 MG Oral Tablet Delayed ReleaseTAKE 1 TABLET DAILY. Bisoprolol Fumarate 5 MG Oral TabletTake 1 tablet by mouth once daily (take in place of atenolol) Calcium Carbonate 600 MG Oral TabletTAKE 1 TABLET DAILY. Co Q10 100 MG Oral CapsuleTAKE 1 CAPSULE Daily Multi Vitamin Oral TabletTAKE 1 TABLET DAILY. Pantoprazole Sodium 40 MG Oral Tablet Delayed ReleaseTAKE 1 TABLET DAILY. PARoxetine HCl - 20 MG Oral TabletTAKE 1 TABLET DAILY. Rosuvastatin Calcium 10 MG Oral TabletTAKE 1 TABLET AT BEDTIME. Allergies Medication Biaxin Recorded By: Estella Michael; 05/26/2021 3:03:17 AM Social History Problems Caffeine use (V49.89) (Z78.9) Former smoker (V15.82) (Z87.891) No illicit drug use Social alcohol use (V49.89) (Z78.9) Review of Systems Constitutional: not feeling tired. Cardiovascular: palpitations, but no intermittent leg claudication and as noted in HPI. Respiratory: no cough and no shortness of breath. Gastrointestinal: no change in bowel habits and no blood in stools. Integumentary: no skin rashes. Neurological: no seizures and no frequent falls. All other systems have been reviewed and are negative for complaint. Vitals Vital Signs Recorded: 30May2021 08:59AM Heart Rate71, Apical [id number], LUE, Sitting Xpeccyflw87, LUE, Sitting Height5 ft 2 in Irmvax176 lb BMI Vsuqrtddln12.52 kg/m2 BSA Calculated1.67 Tobacco Useb) No Fall Screeninga) No falls within the last year Signatures Electronically signed by : Julio Christian DO; May 30 2021 9:19AM EST (Author) Normal [employer] Tobacco Screening.on 021 Fall risk assessment a) No falls within the last year [facility]Sandu osmar 250 DO Work Phone: Tobacco use status [facility] b) No [facility] 250 DO Work Phone: Vital Signs Date Time Vital Sign Value Performing Clinician Facility 04-14-2024 08:54-0400 Body height 157.5 cm Conchis Zamora DO Work Phone: [facility] 04-14-2024 08:54-0400 Body mass index (BMI) [Ratio] 27.11 kg/m2 Conchis Zamora DO Work Phone: [facility] 04-14-2024 08:54-0400 Body temperature 96.3 [degF] Conchistatiana Zamora DO Work Phone: [facility] 04-14-2024 08:54-0400 Body weight 67.22 kg Conchis Zamora DO Work Phone: [facility] 04-14-2024 08:54-0400 Diastolic blood pressure 82 mm[Hg] Conchis Petulisses DO Work Phone: [facility] 04-14-2024 08:54-0400 Heart rate 77 /min Conchistatiana Zamora DO Work Phone: [facility] 04-14-2024 08:54-0400 SaO2% (BldA) [Mass fraction] 98 % Conchistatiana Zamora DO Work Phone: [facility] 04-14-2024 08:54-0400 Systolic blood pressure 126 mm[Hg] Conchis Petulisses DO Work Phone: [facility] 05-10-2023 [id number] Body height 157.5 cm Lacey Damico MD Work Phone: [facility] 05-10-2023 [id number] Body mass index (BMI) [Ratio] 26.16 kg/m2 Lacey Damico MD Work Phone: [facility] 05-10-2023 09:11-0400 Body weight 64.86 kg Lacey Damico MD Work Phone: [facility] 05-10-2023 09:11-0400 Diastolic blood pressure 72 mm[Hg] Lacey Damico MD Work Phone: [facility] 05-10-2023 09:11-0400 Heart rate 84 /min Lacey Damico MD Work Phone: [facility] 05-10-2023 09:11-0400 Systolic blood pressure 118 mm[Hg] Lacey Damico MD Work Phone: [facility] 01-17-2023 13:00-0400 Body height 157.48 cm Malvin Westbrook Other [employer] Other 01-17-2023 13:00-0400 Body mass index (BMI) [Ratio] 26.52 kg/m2 Malvin Westbrook Other [employer] Other 01-17-2023 13:00-0400 Body weight 65.77 kg Malvin Westbrook Other [employer] Other 01-17-2023 13:00-0400 Diastolic blood pressure 69 mm[Hg] Malvin Westbrook Other [employer] Other 01-17-2023 13:00-0400 Systolic blood pressure 111 mm[Hg] Malvin Westbrook Other [employer] Other 01-15-2023 09:05-0400 Blood Pressure Location Morgan TILLMAN [facility] 01-15-2023 09:05-0400 Diastolic blood pressure 68 mm[Hg] Morgan TILLMAN [facility] 01-15-2023 09:05-0400 Heart rate 80 /min Morgan TILLMAN [facility] 01-15-2023 09:05-0400 Respiratory rate 16 /min Morgan TILLMAN [facility] 01-15-2023 09:05-0400 Systolic blood pressure 120 mm[Hg] Morgan TILLMAN [facility] 01-07-2023 13:52-0400 Diastolic blood pressure 92 mm[Hg] DO Conchis Petznick Work Phone: [facility] 01-07-2023 13:52-0400 Heart rate 85 /min DO Conchis Petznick Work Phone: [facility] 01-07-2023 13:52-0400 Respiratory rate 16 /min DO Conchis Petznick Work Phone: [facility] 01-07-2023 13:52-0400 SaO2% (BldA) [Mass fraction] 99 % DO Conchis Petznick Work Phone: [facility] 01-07-2023 13:52-0400 Systolic blood pressure 152 mm[Hg] DO Conchis Petznick Work Phone: [facility] 01-07-2023 12:40-0400 Body height 157.48 cm DO Conchis Petznick Work Phone: [facility] 01-07-2023 12:40-0400 Body weight 68.03 kg DO Conchis Petznick Work Phone: [facility] 01-07-2023 12:34-0400 Body temperature 98 [degF] DO Conchis Petznick Work Phone: [facility] 10-09-2022 14:00-0400 Body height 157.48 cm Filemon Scovanner Other [facility] [employer] Other 10-09-2022 14:00-0400 Diastolic blood pressure 83 mm[Hg] Filemon Scovanner Other [facility] [employer] Other 10-09-2022 14:00-0400 Systolic blood pressure 114 mm[Hg] Filemon Scovanner Other [facility] [employer] Other 05-15-2022 08:11-0500 Body height 157.48 cm Conchis Urrutiajamelarlyn Work Phone: [facility] [employer] 250 DO Work Phone: 05-15-2022 08:11-0500 Body mass index (BMI) [Ratio] 27.25 kg/m2 Conchis Urrutiajamelarlyn Work Phone: [facility] 250 DO Work Phone: 05-15-2022 08:11-0500 Body surface area Derived from formula 1.69 m2 Conchis Urrutiajamelarlyn Work Phone: [facility] 250 DO Work Phone: 05-15-2022 08:11-0500 Body weight 67.59 kg Conchis Urrutiajamelarlyn Work Phone: [facility] 250 DO Work Phone: 05-15-2022 08:11-0500 Diastolic blood pressure 88 mm[Hg] Conchis Kori Ghadajamelick Work Phone: [facility] 250 DO Work Phone: 05-15-2022 08:11-0500 Heart rate 76 /min Conchis Kori Ghadajamlearlyn Work Phone: [facility] 250 DO Work Phone: 05-15-2022 08:11-0500 Systolic blood pressure 138 mm[Hg] Conchis Zamora Work Phone: [facility] 250 DO Work Phone: 01-20-2022 08:32-0400 Blood Pressure Location Morgan TILLMAN [facility] 01-20-2022 08:32-0400 Diastolic blood pressure 84 mm[Hg] Morgan TILLMAN [facility] 01-20-2022 08:32-0400 Heart rate 64 /min Morgan TILLMAN [facility] 01-20-2022 08:32-0400 Respiratory rate 16 /min Morgan TILLMAN [facility] 01-20-2022 08:32-0400 Systolic blood pressure 138 mm[Hg] Morgan TILLMAN [facility] 08-16-2021 10:00-0500 Body height 157.48 cm Malvin Westbrook Other [facility] [employer] Other 08-16-2021 10:00-0500 Body mass index (BMI) [Ratio] 26.52 kg/m2 Malvin Westbrook Other [employer] Other 08-16-2021 10:00-0500 Body weight 65.77 kg Malvin Westbrook Other [employer] Other 08-16-2021 10:00-0500 Diastolic blood pressure 77 mm[Hg] Malvin Westbrook Other [facility] [employer] Other 08-16-2021 10:00-0500 Systolic blood pressure 129 mm[Hg] Malvin Westbrook Other [facility] [employer] Other 05-30-2021 08:59-0500 Body height 157.48 cm Conchis Kori Ghadajamelarlyn Work Phone: [facility] 250 DO Work Phone: 05-30-2021 08:59-0500 Body mass index (BMI) [Ratio] 26.52 kg/m2 Conchis Urrutiajamelarlyn Work Phone: [facility] 250 DO Work Phone: 05-30-2021 08:59-0500 Body surface area Derived from formula 1.67 m2 Conchis Urrutiajamelarlyn Work Phone: [facility] 250 DO Work Phone: 05-30-2021 08:59-0500 Body weight 65.77 kg Conchis Zamora Work Phone: [facility] 250 DO Work Phone: 05-30-2021 08:59-0500 Diastolic blood pressure 84 mm[Hg] Conchistatiana Guerraick Work Phone: [facility] 250 DO Work Phone: 05-30-2021 08:59-0500 Heart rate 71 /min Conchis Kori Charlieick Work Phone: [facility] 250 DO Work Phone: 05-30-2021 08:59-0500 Systolic blood pressure 135 mm[Hg] Conchis Kori Ghadajamelick Work Phone: [facility] 250 DO Work Phone: Encounters Encounter Date Encounter Type Care Provider Facility Start: 06-23-2024 ambulatory Morgan TILLMAN Fac[facility] [place]:[facility] [place] Start: 04-22-2024 End: 04-22-2024 ambulatory Ludmila Ruff Facility: [facility] Start: 04-18-2024 End: 04-18-2024 ambulatory Morgan TILLMAN Facility: [place] Start: 04-18-2024 End: 04-18-2024 Patient encounter procedure Morgan TILLMAN [facility] [place] Start: 04-17-2024 End: 04-17-2024 Bamboo flowsheet Krishan Perry BUSINESS SUPERVISOR [facility] Start: 04-17-2024 End: 04-17-2024 Bamboo flowsheet Krishan Perry BUSINESS SUPERVISOR [facility] Start: 04-17-2024 End: 04-17-2024 ambulatory KRISHAN PERRY [facility] Comment on above: S/P arthroscopy of r ight shoulder (Primary Dx); Right shoulder pain, unspecified chronicity Start: 04-14-2024 End: 04-14-2024 Patient encounter procedure Conchis C Sera DO Work Phone: [facility] 230 Comment on above: Routine general medi bess examination at a health care facility (Primary Dx); Mitral valve prolapse; Dukes's esophagus with dysplasia; Gastroesophageal reflux disease with esophagitis without hemorrhage; Essential hypertension (CMS/HCC); Mixed hyperlipidemia (CMS/HCC); Anxiety; Age-related osteoporosis without current pathological fracture (CMS/HCC); Irritation of eyelid Start: 04-14-2024 End: 04-14-2024 Patient encounter status Conchis Kori Zamora DO Work Phone: [facility] Work Phone: Start: 04-14-2024 End: 04-14-2024 ambulatory CONCHIS Sheikh SERA Not Available Start: 04-14-2024 End: 04-14-2024 ambulatory Krishan Orlando BUSINESS SUPERVISOR [facility] Comment on above: S/P arthroscopy of r ight shoulder (Primary Dx); Right shoulder pain, unspecified chronicity Start: 04-10-2024 End: 04-10-2024 Bamboo flowsheet Rain Starr PT [facility] Start: 04-10-2024 End: 04-10-2024 Bamboo flowsheet Rain Starr PT [facility] Start: 04-10-2024 End: 04-10-2024 ambulatory Rain Starr PT [facility] Comment on above: S/P arthroscopy of r ight shoulder (Primary Dx); Right shoulder pain, unspecified chronicity Start: 04-07-2024 End: 04-07-2024 ambulatory KRISHAN PERRY Not Available Start: 04-03-2024 End: 04-03-2024 ambulatory KRISHAN PERRY Not Available Start: 03-31-2024 End: 03-31-2024 ambulatory KRISHAN PERRY Not Available Start: 03-27-2024 End: 03-27-2024 ambulatory DEVON HUSTON Not Available Start: 03-24-2024 End: 03-24-2024 ambulatory KRISHAN PERRY Not Available Start: 03-20-2024 End: 03-20-2024 ambulatory RAIN STARR Not Available Start: 03-17-2024 End: 03-17-2024 ambulatory KRISHAN PERRY Not Available Start: 03-13-2024 End: 03-13-2024 ambulatory KRISHAN PERRY Not Available Start: 03-12-2024 End: 03-12-2024 ambulatory CHERIE JEFFERY Not Available Start: 03-11-2024 End: 03-11-2024 ambulatory RAIN STARR Not Available Start: 03-07-2024 End: 03-07-2024 ambulatory KRISHAN PERRY Not Available Start: 03-05-2024 End: 03-05-2024 ambulatory KRISHAN PERRY Not Available Start: 02-28-2024 End: 02-28-2024 ambulatory KRISHAN PERRY Not Available Start: 02-26-2024 End: 02-26-2024 ambulatory RAIN STARR Not Available Start: 02-22-2024 End: 02-22-2024 ambulatory KRISHAN PERRY Not Available Start: 02-19-2024 End: 02-19-2024 ambulatory SHARA DUMONT Not Available Start: 02-14-2024 End: 02-14-2024 ambulatory RAIN STARR Not Available Start: 02-14-2024 End: 02-14-2024 ambulatory CONCHIS Honorio BUENO Not Available Start: 01-17-2024 End: 01-17-2024 ambulatory CONCHIS Olmedo BUENO Not Available Start: 11-16-2023 End: 11-16-2023 ambulatory CHERIE JEFFERY ARA Not Available Start: 11-05-2023 End: 11-05-2023 ambulatory AGUILA MERCADO Not Available Start: 10-31-2023 End: 10-31-2023 ambulatory NATALIA Finley TOY Not Available Start: 10-23-2023 End: 10-23-2023 ambulatory AGUILA MERCADO Not Available Start: 10-09-2023 End: 10-09-2023 ambulatory AGUILA MERCADO Not Available Start: 07-26-2023 End: 07-26-2023 ambulatory CONCHIS Sheikh SERA Not Available Start: 07-10-2023 End: 07-10-2023 ambulatory CONCHIS Sheikh SERA Not Available Start: 05-10-2023 End: 05-10-2023 ambulatory [facility] Start: 05-10-2023 End: 05-10-2023 Office outpatient visit 15 minutes Lacey Damico MD Work Phone: [facility] Comment on above: Essential hypertensi on; Mixed hyperlipidemia; Palpitations; BMI 26.0-26.9,adult Start: 01-17-2023 End: 01-17-2023 ambulatory Malvin Westbrook Other [employer] Other Start: 01-17-2023 Patient encounter procedure Malvin Westbrook [facility] Gastroenterology Start: 01-15-2023 End: 01-15-2023 Patient encounter procedure Morgan TILLMAN [facility] Start: 01-07-2023 End: 01-07-2023 Emergency department patient visit Conchis Zamora Facility:[facility] Start: 01-07-2023 End: 01-07-2023 Emergency department patient visit DO Conchis Zamora Work Phone: [facility] Work Phone: Start: 10-23-[address] GALINA BECERRIL Facilit y:[facility] Start: 10-09-2022 End: 10-09-2022 ambulatory Filemon Meléndez Other [facility] [employer] Other Start: 10-09-2022 Office outpatient vi sit 15 minutes Filemon Meléndez [facility] Start: 10-02-2022 End: 10-02-2022 ambulatory Malvin Westbrook Other [facility] [employer] Other Start: 10-02-2022 Telephone encounter Malvin HOWARD G Gastroenterology Start: 09-11-2022 End: 09-11-2022 Lab Drop off Morgan Haynes PRIMO [facility] Start: 08-04-2022 End: 08-04-2022 ambulatory CONCHIS ZAMORA Facility:[facility] Start: 07-04-2022 End: 07-04-2022 ambulatory Malvin Westbrook Other [facility] [employer] Other Start: 07-04-2022 Telephone encounter Malvin HOWARD G Gastroenterology Start: 06-06-2022 Chart Update Conchis ramos Work Phone: -[facility] 250 DO Work Phone: Start: 05-31-2022 ambulatory Ms. Samantha Robert Facilit y:[id number] Start: 05-15-2022 Office outpatient vi sit 15 minutes Conchis Zamora Work Phone: -[facility] 250 DO Work Phone: Start: 05-15-2022 ambulatory JEWELL Robert Facilit y: Start: 04-18-2022 End: 04-19-[address] TYLER ERVIN . Facility:[facility] Start: 04-15-2022 End: 04-15-2022 ambulatory CONCHIS ZAMORA Facility:[facility] Start: 04-10-2022 End: 04-10-[address] TYLER ERVIN . Facility:[facility] Start: 01-20-2022 End: 01-20-2022 Patient encounter procedure Morgan TILLMAN [facility] Start: 12-14-2021 Rx Renewal Conchis ramos Work Phone: [facility] 250 DO Work Phone: Start: 11-29-2021 End: 11-29-2021 Lab Drop off Kari Gonzalesmons [facility] Start: 11-29-2021 End: 11-29-2021 Patient encounter procedure Morgan TILLMAN [facility] Start: 11-28-2021 Orders Only Gasper wagoner MD Work Phone: Cardiology Comment on above: Sleep apnea, unspeci fied type (Primary Dx) Start: 10-19-2021 End: 10-19-2021 ambulatory Gasper Hamilton MD Work Phone: Cardiology Comment on above: Heart palpitations ( Primary Dx) Start: 10-19-2021 End: 10-19-2021 Telemedicine consultation with patient Gasper Hamilton MD Work Phone: [facility] Start: 10-14-2021 Chart abstracting [facility] Main Work Phone: Neurology Comment on above: HSAT Check In (Adult ) Start: 09-09-2021 Rx Renewal Conchis ramos Work Phone: [facility] 250 DO Work Phone: Start: 08-16-2021 End: 08-16-2021 ambulatory Malvin Westbrook Other [facility] [employer] Other Start: 08-16-2021 Patient encounter procedure Malvin JOSEPH Gastroenter[facility] Start: 08-15-2021 Rx Renewal Conchis Kori ramos Work Phone: -[facility] 250 DO Work Phone: Start: 05-30-2021 Office outpatient vi sit 25 minutes Conchis Kori Guerraarlyn Work Phone: -[facility] 250 DO Work Phone: Start: 05-30-[address] Conchis Zamora Facility: Start: 05-26-2021 Rx Renewal Julio Reinosoter DO Work Phone: -[facility] 250 DO Work Phone: Echocardiogram normal Conchis Kori Ghadajamelarlyn Work Phone: [facility] 250 DO Work Phone: Radionuclide heart s tudy normal Conchis Kori Sera Work Phone: [facility] 250 DO Work Phone: Procedures Date Procedure Procedure Detail Performing Clinician Start: 05-10-2023 Lipid panel LACEY DAMICO Start: 05-10-2023 Comprehensive metabolic 2000 panel - Serum or Plasma LACEY DAMICO Start: 04-20-2023 Mammography Rain Starr PT Start: 01-07-2023 CT of head without contrast DO Conchis vaz Work Phone: Start: 04-18-2022 Mammography Lacey Damico MD Work Phone: Start: 04-04-2021 Dilation of urethra Morgan TILLMAN Start: 06-28-2020 Dilation of urethra Morgan TILLMAN Start: 03-12-2019 Esophagogastroduodenoscopy Morgan WATER S Start: 10-21-2018 Colonoscopy Rain Starr PT Start: 11-16-2017 Dilation of urethra Morgan TILLMAN Start: 01-29-2017 Cystourethroscopy with dilation of urethral stricture Morgan TILLMAN Start: 09-29-2016 Adult depression screening assessment Gasper Hamilton MD Work Phone: section Conchis Sheikh Doe shiarlyn Work Phone: section Morgan CACERES Laparoscopy Morgan TILLMAN Repair of musculoten dinous cuff of shoulder Conchis Sheikh Sera Work Phone: Rotator cuff includi ng muscles and tendons (body structure) Morgan TILLMAN Tonsillectomy Conchis Urrutiagen ramos Work Phone: Tonsillectomy Morgan TILLMAN Total colonoscopy Conchis Sheikh Sera Work Phone: Plan of Treatment Date Care Activity Detail Author Start: 10-21-2028 Screening for malign ant neoplasm of colon [facility] Healthcare Start: 04-14-2025 Medicare Annual Wellness (AWV) Medicare Annual Wellness (AWV) [facility] Start: 05-12-2024 End: 05-12-2024 Patient encounter procedure 05/12/2024 9:00 AM EST Office Visit [facility] [address] [facility] [address] [place] [address] Lacey Damico MD [address] [facility] [address] [place] [address] [facility] Start: 05-10-2024 End: 05-10-2024 Comprehensive metabolic 2000 panel - Serum or Plasma Comprehensive Metabolic Panel Lab Routine Essential hypertension Mixed hyperlipidemia Expected: 05/10/2024 (Approximate), Expires: 05/10/2024 [facility] Service Area Work Phone: Comment on above: Expected: 05/10/2024 (Approximate), Expires: 05/10/2024 Start: 05-10-2024 End: 05-10-2024 Lipid 1996 panel - Serum or Plasma Lipid Panel Lab Routine Essential hypertension Mixed hyperlipidemia Expected: 05/10/2024 (Approximate), Expires: 05/10/2024 [facility] Work Phone: Comment on above: Expected: 05/10/2024 (Approximate), Expires: 05/10/2024 Start: 04-25-2024 End: 04-25-2024 ambulatory 04/25/2024 7:30 AM EDT Treatment [facility] [address] [place] [address] Krishan Perry, CAMILO [facility] Start: 04-24-2024 End: 04-24-2024 Patient encounter procedure 04/24/2024 8:30 AM EDT Office Visit [facility] [address] [place] [id number] Tyler Ervin, DO [address] [place] [address] [facility] Start: 04-23-2024 End: 04-23-2024 Patient encounter procedure 04/23/2024 8:45 AM EDT Office Visit [facility] [address] [place] [phone] Jr. Cherie Mcclellan, DO [address] [place] [address] [facility] Start: 04-21-2024 End: 04-21-2024 ambulatory 04/21/2024 7:30 AM EDT Treatment [facility] [address] [place] [address] Krishan Perry, CAMILO [facility] Start: 04-20-2024 Screening for malign ant neoplasm of breast Mammogram [facility] Start: 04-17-2024 End: 04-17-2024 ambulatory [facility] Comment on above: Arrived Start: 04-14-2024 End: 04-14-2024 Patient encounter procedure 04/14/2024 9:00 AM EDT Office Visit [facility] [address] [place] [phone] Conchis Zamora, DO [address] [place] [address] [facility] 230 Start: 04-14-2024 End: 04-14-2024 ambulatory 04/14/2024 7:30 AM EDT Treatment [facility] [address] [place] [id number] Orlando Krishan, BUSINESS SUPERVISOR [facility] Start: 04-11-2024 Medicare Annual Wellness (AWV) Medicare Annual Wellness (AWV) [facility] Healthcare Start: 03-09-2024 Influenza vaccination Influenza Vacc ine (#1) [facility] Start: 05-10-2023 FUV, Provider: Lacey Damico, Status: Pen, Time: 9:00 AM FUV, Provider: Lacey Damico, Status: Pen, Time: 9:00 AM [facility] 250 DO Work Phone: Start: 04-18-2023 Screening for malign ant neoplasm of breast Mammogram [facility] Start: 04-18-2023 Screening for osteoporosis Bone Density Scan [facility] Start: 03-09-2023 Influenza vaccination Influenza Vacc ine (#1) [facility] Start: 05-11-2022 FUV, Provider: Julio Christian, Status: Pen, Time: 1:45 PM FUV, Provider: Julio Christian, Status: Pen, Time: 1:45 PM [facility] 250 DO Work Phone: Start: 10-18-2021 COVID-19 Vaccine (6 - Additional dose for Soha series) COVID-19 Vaccine (6 - Additional dose for Soha series) [facility] Start: 2021 ADVANCE DIRECTIVE DISCUSSION ADVANCE DIRECTIVE DISCUSSION [facility] Start: 2021 BONE DENSITY BONE DENSITY [facility] Start: 2021 PNEUMOVAX AGE 65 AND OVER WITH 5YR LOOKBACK (#1) PNEUMOVAX AGE 65 AND OVER WITH 5YR LOOKBACK (#1) [facility] Start: 05-30-2021 FUV, Provider: Julio Christian, Status: Pen, Time: 8:45 AM FUV, Provider: Julio Christian, Status: Sg, Time: 8:45 AM -[facility] 250 DO Work Phone: Start: 09-29-2017 Adult depression screening assessment DEPRESSION SCREENING [facility] Start: 2006 SHINGRIX VACCINE (1 of 2) SHINGRIX VACCINE (1 of 2) [facility] Start: 2001 COLOGUARD (FIT-DNA) COLOGUARD (FIT-D NA) [facility] Start: 2001 Colonoscopy COLONOSCOPY [facility] Start: 2001 COLORECTAL CANCER SCREENING COLORECTAL CANCER SCREENING [facility] Start: [address] COLONOGRAPHY [facility] Start: 2001 DIABETES SCREEN DIABETES SCREEN [facility] Start: 2001 FECAL OCCULT BLOOD FECAL OCCULT BLOO D [facility] Start: 2001 LIPID SCREEN LIPID SCREEN [facility] Start: 2001 SIGMOIDOSCOPY SIGMOIDOSCOPY [facility] Start: 1996 Mammography MAMMOGRAM [facility] Start: 1978 DTaP/Tdap/Td Vaccine s (1 - Tdap) DTaP/Tdap/Td Vaccines (1 - Tdap) [facility] Start: 1975 Urine microalbumin profile DTAP,TDAP,TD (1 - Tdap) [facility] Start: 1974 ANNUAL PCP TEAM [place] H[employer] PROFESSOR CHAR DISEASE VISIT ANNUAL PCP TEAM CHRONIC DISEASE VISIT [facility] Start: 1974 BP CONTROLLED (<130/80) BP CONTROLLE D (<130/80) [facility] Start: 1974 Diabetes mellitus screening Diabetes Screening [facility] Start: 1974 HEPATITIS C SCREENING HEPATITIS C [facility] Start: 1974 Hepatitis C screening Hepatitis C [facility] Start: 1974 HIV SCREENING HIV SCREENING [facility] Start: 1956 Lipid panel Lipid Panel [facility] Start: 1956 Medicare Annual Wellness Visit Medicare Annual Wellness Visit (AWV) [facility] Start: 1956 Screening for malign ant neoplasm of colon [facility] Patient Education Vertigo ED [facility] Work Phone: Patient referral [facility] Work Phone: [facility] Immunizations Immunization Date Immunization Notes Care Provider Fa estrella 06-20-2022 influenza virus vaccine, unspecified formulation Morgan TILLMAN [facility] [facility] 06-20-2022 Influenza, injectabl e, Madin Carrington Canine Kidney, preservative free, quadrivalent Lacey Damico MD Work Phone: [facility] Work Phone: 04-04-2022 zoster vaccine recombinant Conchis Zamora Work Phone: [facility] 11-08-2021 Prevnar 20 0.5 ML Intramuscular Suspension Prefilled Syringe Conchis Zamora Work Phone: [facility] 10-10-2021 zoster vaccine recombinant Conchis Zamora Work Phone: [facility] 06-19-2021 Pfizer-BioNTech COVID-19 Vacc 30 MCG/0.3ML Intramuscular Suspension Conchis Zamora Work Phone: [facility] 06-17-2021 influenza, injectabl e, quadrivalent, contains preservative Rain Starr [facility] 06-15-2021 influenza virus vaccine, unspecified formulation Morgan TILLMAN [facility] 06-15-2021 Influenza, injectabl e, Madin Hallie Canine Kidney, preservative free, quadrivalent Conchis Zamora Work Phone: [facility] 250 DO Work Phone: 10-07-2020 Pfizer-BioNTech COVID-19 Vacc 30 MCG/0.3ML Intramuscular Suspension Conchis Kori Petznick Work Phone: [facility] 10-01-2020 SARS-CoV-2 (COVID-19 ) Ad26 vaccine, recombinant Morgan TILLMAN [facility] 09-16-2020 Pfizer-BioNTech COVID-19 Vacc 30 MCG/0.3ML Intramuscular Suspension Conchis C Petznick Work Phone: [facility] 09-10-2020 SARS-CoV-2 (COVID-19 ) Ad26 vaccine, recombinant Morgan TILLMAN [facility] 04-19-2020 influenza, injectabl e, madin hallie canine kidney, preservative free Conchis C Petznick Work Phone: [facility] Work Phone: 06-20-2019 influenza virus vaccine, unspecified formulation Morgan TILLMAN [facility] 06-20-2019 Influenza, injectabl e, Madin Hallie Canine Kidney, quadrivalent with preservative Conchis C Petznick Work Phone: [facility] Work Phone: 06-17-2018 influenza virus vaccine, unspecified formulation Morgan TILLMAN [facility] 06-17-2018 Influenza, injectabl e, Madin Hallie Canine Kidney, preservative free, quadrivalent Conchis C Petznick Work Phone: [facility] DO Work Phone: 01-02-2007 tetanus toxoid, adsorbed Conchis C Petznick Work Phone: [facility] Payers Date Payer Category Payer Unknown 2021 Unknown ANTHEM BLUE CROS S AND BLUE SHIELD ANTHEM MEDIBLUE ACCESS [id number] 2021-Present [phone] [address] [place] [address] PPO [id number] 2020 Unknown [id number] 1959 Medicare [id number] [id number] 1959 Self-pay 1956 Unknown [id number] 2.16.840.1.086964.3.579.2.356 1956 Unknown [id number] 2.16.840.1.845374.3.579.2.356 1956 Unknown [id number] 2.16.840.1.857362.3.579.2.1068 1956 Unknown [id number] 2.16.840.1.312482.3.579.2.593 1956 Unknown [id number] 2.16.840.1.492306.3.579.2.593 1956 Unknown [id number] 2.16.840.1.585020.3.579.2.593 1956 Unknown [id number] 2.16.840.1.418059.3.579.2.593 1956 Unknown [id number] 2.16.840.1.963031.3.579.2.593 1956 Unknown [id number] 2.16.840.1.964749.3.579.2.1244 1956 Unknown [id number] 2.16.840.1.894273.3.579.2.1259 1956 Unknown [id number] 2.16.840.1.276959.3.579.2.1259 1957 Unknown [id number] 2.16.840.1.753282.3.579.2.1258 1956 Unknown [id number] 2.16.840.1.707993.3.579.2.1258 1956 Unknown [id number] 2.16.840.1.738499.3.579.2.1258 1956 Unknown [id number] 2.16.840.1.840267.3.579.2.1258 1956 Unknown [id number] 2.16.840.1.582130.3.579.2.1258 1956 Unknown [id number] 2.16.840.1.643383.3.579.2.1258 1956 Unknown [id number] 2.16840.1.886190.3.579.2.1258 1956 Unknown [id number] 2.16.840.1.831108.3.579.2.1258 1956 Unknown [id number] 2.16.840.1.490392.3.579.2.1258 1956 Unknown [id number] 2.16.840.1.733381.3.579.2.1258 1956 Unknown [id number] 2.16840.1.363960.3.579.2.1258 1956 Unknown [id number] 2.16.840.1.136260.3.579.2.1258 1956 Unknown [id number] 2.16.840.1.098079.3.579.2.1258 1956 Unknown [id number] 2.16.840.1.821157.3.579.2.1258 1956 Unknown [id number] 2.16.840.1.870124.3.579.2.1258 1956 Unknown [id number] 2.16.840.1.910134.3.579.2.125 1956 Unknown [id number] 2.16.840.1.492017.3.579.2.1258 1956 Unknown [id number] 2.16.840.1.517567.3.579.2.1258 1956 Unknown [id number] 2.16.840.1.534558.3.579.2.1258 1956 Unknown [id number] 2.16.840.1.118294.3.579.2.1258 1956 Unknown [id number] 2.16.840.1.642049.3.579.2.1258 1956 Unknown [id number] 2.16.840.1.939088.3.579.2.1258 1956 Unknown [id number] 2.16.840.1.303637.3.579.2.1258 1956 Unknown [id number] 2.16.840.1.441403.3.579.2.1258 1956 Unknown [id number] 2.16.840.1.091738.3.579.2.1258 1956 Unknown [id number] 2.16.840.1.043478.3.579.2.1258 1956 Unknown [id number] 2.16.840.1.783997.3.579.2.1258 1956 Unknown [id number] 2.16.840.1.187408.3.579.2.1258 1956 Unknown [id number] 2.16.840.1.568652.3.579.2.1258 1956 Unknown [id number] 2.16.840.1.670505.3.579.2.727 1956 Unknown [id number] 2.16.840.1.448523.3.579.2.727 1956 Unknown [id number] 2.16.840.1.837381.3.579.2.727 Unknown [id number] Unknown [id number] Unknown [id number] 2.16.840.1.525964.3.579.2.531 Social History Date Type Detail Facility Start: 05-10-2023 End: 07-09-2023 Social alcohol use Social alcohol use [facility] Start: 08-12-2021 End: 01-17-2024 Tobacco smoking status NHIS Ex-smoker [facility] End: 07-09-1989 History of tobacco use Current smoker [facility] Start: 08-12-2021 End: 01-17-2024 Tobacco use and exposure Smokeless tobacco non-user [facility] Start: 08-12-2021 End: 04-14-2024 Alcohol intake Current drinker of alcohol (finding) [facility] Start: 08-12-2021 History SDOH Alcohol Comment couple drinks weekly [facility] Start: 1955 Sex Assigned At Not on file [facility] Start: 03-28-2021 End: 01-15-2023 Tobacco smoking status Never smoked tobacco (finding) [facility] Tobacco smoking status Never [facility] Start: 05-10-2023 End: 07-09-2023 Sex Assigned At Female [facility] Start: 1955 Sex Assigned At Female [facility] Start: 05-10-2023 Alcohol Comment occasional wine/ mixed drink [facility] Work Phone: Start: 04-30-2023 End: 05-10-2023 Exposure to SARS-CoV-2 (event) Not sure [facility] End: 07-09-1977 History of tobacco use Cigarette Smoker [facility] Within the last year , have you been afraid of your partner or ex-partner? No [facility] Are you now , , , , never or living with a partner? [facility] How often to you hav e a drink containing alcohol? 2-3 time sa week [facility] How many standard drinks containing alcohol do you have on a typical day? 1 or 2 [facility] How often do you hav e 6 or more drinks on 1 occasion? Never [facility] Do you feel stress - tense, restless, nervous, or anxious, or unable to sleep at night because your mind is troubled all the time - these days [OSQ] Not at all [facility] (I/We) worried wheth er (my/our) food would run out before (I/we) got money to buy more. Never true [facility] Start: 01-12-2023 Alcohol Comment 1-2 drinks 2-3 times a week [facility] Start: 01-08-2023 Gender identity Identifies as female gender (finding) [facility] Start: 01-08-2023 Sexual orientation Heterosexual (finding) [facility] Medical Equipment Procedure Code Equipment Code Equipment Origin al Text Equipment Identifier Dates Arthroscopy, shoulder ANCHOR 4.75 SWIVELOCK FDA Start: 09-27-2018 Functional Status Date Assessment Result Facility 01-15-2023 Functional Status N/A [facility] 01-20-2022 Functional Status N/A [facility] Clinical Notes 08-12-2021 to 04-22-2024 Conchis Zamora, - 04/14/2024 9:00 AM Galilea Starr PT - 04/10/2024 8:00 AM Huyen Damico MD - 05/10/2023 9:00 AM EDTPatient Instructions Note Date & Type Note Facility 04-22-2024 Note Patient Education Urology Urethral Stricture Urethral stricture is when the tube that drains pee (urine) from the bladder out of the body (urethra) becomes too narrow. The urethra can become narrow because of scar tissue, infection, surgery, or an injury. This can make it difficult to pee (urinate). In females, the urethra opens above the vaginal opening. In males, the urethra opens at the tip of the penis, and the urethra is much longer than it is in females. Because of the length of the male urethra, urethral stricture is much more common in males. What are the causes? In males and females, common causes of urethral stricture include: ? Urinary tract infection (UTI). ? Sexually transmitted infection (STI). ? Using a soft tube in the urethra to drain pee from the bladder (urinary catheter). ? Urinary tract surgery. In males, common causes of urethral stricture include: ? A severe injury to the pelvis. ? Prostate surgery. ? Injury to the penis. In many cases, the cause of urethral stricture is not known. What increases the risk? You are more likely to develop this condition if you: ? Are male. Males who have had prostate surgery are at risk of developing this condition. ? Use a urinary catheter. ? Have had urinary tract surgery. What are the signs or symptoms? The main symptom of this condition is trouble peeing. This may cause decreased pee flow, dribbling, or spraying of pee. Other symptom of this condition may include: ? Frequent UTIs. ? Blood in the pee. ? Pain when peeing. ? Swelling of the penis in males. ? Not being able to pee. How is this diagnosed? This condition may be diagnosed based on: ? Your medical history and a physical exam. ? Tests of your pee to check for infection or bleeding. ? X-rays. ? Ultrasound. ? Retrograde urethrogram. With this test, a dye is injected into the urethra and then an X-ray is taken. ? Urethroscopy. This is when a thin tube with a light and camera on the end (urethroscope) is used to look at the urethra. ? A CT scan or MRI. How is this treated? This condition is treated with surgery or other procedures. The type of surgery that you have depends on the severity of your condition. You may have: ? Urethral dilation. In this procedure, the narrow part of the urethra is stretched open (dilated) with dilating instruments or a small balloon. ? Urethrotomy. In this procedure, a urethroscope is placed into the urethra, and the narrow part of the urethra is cut open with a surgical blade or laser inserted through the urethroscope. ? Urethroplasty. In this procedure, an incision is made in the urethra and the narrow part is removed. Then, the urethra is reconstructed. Follow these instructions at home: ? Take aekl-bmt-cwiclln and prescription medicines only as told by your health care provider. ? If you were prescribed antibiotics, take them as told by your provider. Do not stop using the antibiotic even if you start to feel better. ? Drink enough fluid to keep your pee pale yellow. ? Keep all follow-up visits. Your provider will check your healing and adjust your treatment plan as needed. Contact a health care provider if: ? You have frequent peeing or you are only peeing small amounts often. ? You feel the need to pee urgently. ? You have pain or burning when you pee. ? Your pee smells bad or unusual. ? Your pee is bloody or cloudy. ? You have pain in your lower abdomen or back. ? Your genital area is swollen, bruised, or discolored. This includes: ? The penis, scrotum, and inner thighs for males. ? The outer genital organs (vulva) and inner thighs for females. ? You have a fever. ? You develop swelling in your legs. Get help right away if: ? You cannot pee. ? You have trouble breathing. These symptoms may be an emergency. Get help right away. Call 911. ? Do not wait to see if the symptoms will go away. ? Do not drive yourself to the hospital. This information is not intended to replace advice given to you by your health care provider. Make sure you discuss any questions you have with your health care provider. Document Revised: 04/19/2023 Document Reviewed: 04/19/2023 [employer] Patient Education ? 2023 [employer]. [facility] 04-14-2024 History of Present illness Narrative Images from the original note were not included. Ivonne Echevarria is a 68 y.o. female presents with chief complaint of Chief Complaint Patient presents with Annual Exam History of Present Illness Here for yearly MWV and to review recent lab results. Due for mammogram. Last dexa in 2021. Colonoscopy last in 2019. UTD on pneumonia vaccine. Would like to discuss flu vaccine- questioning if its too early to get. Normally gets around Dec List of current healthcare providers: Patient Care Team: Conchis Zamora, DO as PCP - General (Family Medicine) Conchis Zamora, DO as PCP - Dev[employer] Medicare Annual Visit Over the past 2 weeks, how often have you been bothered by any of the following problems? Little interest or pleasure in doing things: Not at all Feeling down, depressed, or hopeless: Not at all Patient Health Questionnaire-2 Score: 0 Evans Fall Risk History of Falling, Immediate or Within 3 Months: No Health Risk Assessment Form Do you need help eating, bathing, using the toilet, dressing, or getting around your home?: No Can you prepare your own meals?: Yes Can you do your own housework without help?: Yes Can you shop for groceries or clothes without help?: Yes Do you exercise for about 20 minutes 3 or more days a week?: Yes How confident are you that you can control and manage most of your health problems?: Very confident Can you mange your money, credit cards and accounts, pay bills and taxes?: Yes Vision Screening: Yes, no gross abnormalities Hearing Screening: Not done Cognitive Screening Self Assessment: No overt cognitive deficiency is apparent by direct observation Pain Assessment Pain Score: 0 - No pain The following health maintenance schedule was reviewed with the patient and provided in printed form in the after visit summary: Health Maintenance Topic Date Due Influenza Vaccine (1) 03/09/2024 Medicare Annual Wellness (AWV) 04/11/2024 Mammogram 04/20/2024 Colorectal Cancer Screening 10/21/2028 Pneumococcal Vaccine: 65+ Years Completed No orders of the defined types were placed in this encounter. The patient is a 68-year-old female who presents for evaluation of multiple medical concerns. She reports experiencing widespread body aches, particularly in her shoulders, neck, and hip. Her hip pain improves with walking. Monthly massages have been beneficial. She also mentions that her joints tend to be stiff and sore, especially in the morning or after periods of inactivity. She had rotator cuff surgery. She is currently on a regimen of Crestor 10 mg. She has an upcoming appointment with her environmental services lead next month to address her heart palpitations. She admits to consuming alcohol frequently, particularly Kathleen Alexanders, which contain ice cream. She acknowledges the need to monitor her diet more closely. She has been dealing with itchy eyelids recently and is seeking advice on potential treatments. SUBJECTIVE: CURRENT MEDICATIONS: ALLERGIES/DISCONTINUE MEDICATIONS Current Outpatient Medications: albuterol HFA 90 mcg/act inhaler, every 6 (six) hours., Disp: , Rfl: aspirin 81 MG EC tablet, Take 81 mg by mouth in the morning., Disp: , Rfl: biotin 1000 MCG tablet, Take by mouth Daily., Disp: , Rfl: calcium carbonate 1500 (600 Ca) MG tablet, Take 600 mg by mouth in the morning., Disp: , Rfl: coenzyme Q-10 100 MG capsule, 1 (one) time each day at the same time., Disp: , Rfl: estradiol (Estrace) 0.1 MG/GM vaginal cream, APPLY 1 GRAM VAGINALLY TWICE A WEEK (SUNDAY & SUNDAY), Disp: , Rfl: ibandronate (Boniva) 150 MG tablet, TAKE 1 TABLET BY MOUTH ONCE A MONTH WITH PLAIN WATER 60 MINUTES BEFORE THE FIRST FOOD, BEVERAGE OR MEDICINE OF THE DAY., Disp: 12 tablet, Rfl: 0 latanoprost (Xalatan) 0.005 % ophthalmic solution, Administer 1 drop into both eyes at bedtime., Disp: , Rfl: metoprolol succinate XL (Toprol-XL) 25 MG 24 hr tablet, TAKE 1 AND 1/2 TABLETS DAILY BY MOUTH EVERY DAY, Disp: 135 tablet, Rfl: 0 MiraLax 17 GM/SCOOP powder, as directed Orally, Disp: , Rfl: montelukast (Singulair) 10 MG tablet, TAKE 1 TABLET BY MOUTH EVERY DAY, Disp: 90 tablet, Rfl: 1 pantoprazole (ProtoNix) 40 MG EC tablet, TAKE 1 TABLET BY MOUTH EVERY DAY FOR 90 DAYS, Disp: , Rfl: PARoxetine (Paxil) 20 MG tablet, TAKE 1 TABLET BY MOUTH DAILY, Disp: 90 tablet, Rfl: 0 LORazepam (Ativan) 1 MG tablet, Take 1 tablet (1 mg) by mouth See administration instructions for 10 days 1 by mouth 1 hour prior to MRI, Disp: 1 tablet, Rfl: 0 rosuvastatin (Crestor) 10 MG tablet, Take 1 tablet (10 mg) by mouth in the morning., Disp: 90 tablet, Rfl: 2 triamcinolone (Kenalog) 0.1 % cream, Apply topically 2 (two) times a day for 7 days, Disp: 45 g, Rfl: 1 Allergies Allergen Reactions Clarithromycin Unknown Glycerin Diarrhea There are no discontinued medications. PAST MEDICAL HISTORY: SURGICAL/SOCIAL/FAMILY HISTORY DEPRESSION SCREEN: Past Medical History: Diagnosis Date Allergies Anxiety Arthritis of hip 04/19/2022 Asthma (CMS/HCC) Dukes esophagus BPPV (benign paroxysmal positional vertigo), left 01/12/2023 Breast cancer screening by mammogram 04/18/2022 neg Breast lump Diverticulitis HTN (hypertension) (CMS/HCC) Hyperlipidemia (CMS/HCC) Hypertension, essential (CMS/HCC) 08/12/2021 Mitral valve prolapse Ocular migraine ([facility]) ARINA (obstructive sleep apnea) Mild, not tx Rotator cuff tear arthropathy, unspecified laterality left Past Surgical History: Procedure Laterality Date BREAST LUMPECTOMY SECTION, LOW TRANSVERSE COLONOSCOPY 2013 COLONOSCOPY 10/03/2018 ESOPHAGOSCOPY / EGD 09/2017 SHOULDER ARTHROSCOPY Left 09/27/2018 SHOULDER ARTHROSCOPY W/ ROTATOR CUFF REPAIR Right 01/31/2024 DEBORAH W/ LALO ; STEPANIC TONSILLECTOMY Depression: Not at risk (04/14/2024) PHQ-2 PHQ-2 Score: 0 Social History Tobacco Use Smoking status: Former Current packs/day: 0.00 Types: Cigarettes Quit date: 07/09/1977 Years since quittin.7 Smokeless tobacco: Never Vaping Use Vaping status: Never Used Substance Use Topics Alcohol use: Yes Alcohol/week: 3.0 - 4.0 standard drinks of alcohol Types: 3 - 4 Standard drinks or equivalent per week Comment: 1-2 drinks 2-3 times a week Drug use: Never Family History Problem Relation Name Age of Onset Hyperlipidemia Mother Hypertension Mother Heart disease Mother Heart disease Father Hypertension Father Asthma Father Hyperlipidemia Father Prostate cancer Brother REVIEW OF SYMPTOMS: Review of Systems Constitutional: Negative for fatigue. HENT: Negative for rhinorrhea. Respiratory: Negative for cough and shortness of breath. Cardiovascular: Negative for chest pain. Gastrointestinal: Negative for abdominal distention. Skin: Negative for rash. Neurological: Negative for dizziness. All other systems reviewed and are negative. OBJECTIVE: 04/14/2024 8:54 AM 01/17/2024 9:00 AM 10/31/2023 3:38 PM Vitals BMI 27.11 kg/m2 26.16 kg/m2 26.16 kg/m2 BSA (m2) 1.71 m2 1.68 m2 1.68 m2 Systolic 126 124 Diastolic 82 80 Heart Rate 77 76 SpO2 98 % 99 % Temp 96.3 F Height (in) 5' 2 5' 2 5' 2 Weight (lb) 148.2 143 143 Visit Report Report Report Report GENERAL EXAM: Physical Exam Vitals reviewed. Constitutional: General: She is not in acute distress. Appearance: Normal appearance. She is not ill-appearing. HENT: Head: Normocephalic and atraumatic. Nose: Nose normal. Mouth/Throat: Mouth: Mucous membranes are moist. Eyes: General: No scleral icterus. Extraocular Movements: Extraocular movements intact. Comments: Mild erytheamtous changes to b/ly upper eyelides Cardiovascular: Rate and Rhythm: Normal rate and regular rhythm. Heart sounds: No murmur heard. Pulmonary: Effort: Pulmonary effort is normal. Breath sounds: Normal breath sounds. Musculoskeletal: General: Normal range of motion. Cervical back: Normal range of motion and neck supple. Skin: General: Skin is warm and dry. Findings: No rash. Neurological: General: No focal deficit present. Mental Status: She is alert and oriented to person, place, and time. Mental status is at baseline. Psychiatric: Mood and Affect: Mood normal. Behavior: Behavior normal. Thought Content: Thought content normal. Judgment: Judgment normal. ADDITIONAL EXAM: ASSESSMENT AND PLAN: Ivonne was seen today for annual exam. Diagnoses and all orders for this visit: Routine general medical examination at a health care facility [facility] appointment I reviewed the patients past medical history along with any laboratory and diagnostic testing preformed prior to the visit. During the visit, health care maintanence was reviewed and recommendations made specifically for the patient based on their risk factors. Current colon cancer screening: up-to-date with colonoscopy. Breast cancer screening: up-to-date with screening. Blood work: most recent blood work reviewed Dexa due next year. Finally the patient was instructed to call the office if any health issues arise until the next well check/appointment. She reports generalized achiness, particularly in her shoulders, neck, and hip. She was advised to stay active, as movement tends to improve symptoms. She uses Biofreeze for relief and was advised that supplements like glucosamine may take 2-3 months to show benefits, especially for significant arthritis. At the conclusion of the visit all questions were answered which were brought forth. Mitral valve prolapse Dkues's esophagus with dysplasia Gastroesophageal reflux disease with esophagitis without hemorrhage Essential hypertension (CMS/HCC) Mixed hyperlipidemia (CMS/HCC) Recheck lipids in 6 months Anxiety Age-related osteoporosis without current pathological fracture (CMS/HCC) Irritation of eyelid - triamcinolone (Kenalog) 0.1 % cream; Apply topically 2 (two) times a day for 7 days She reports recent itching of her eyelids. A prescription for a topical steroid will be sent to [facility] in [place]. She was instructed to apply it carefully to avoid getting it in her eyes. Potential initial tingling was discussed, which should subside quickly. CONCHIS ZAMORA D.O. This note was entered using [employer]. Grammatical and dictation errors maybe present in translation *I have reviewed and reconciled the history and medication list with the patient today* documented in this encounter [facility] 04-10-2024 History of Present illness Narrative Physical Therapy Treatment Visit Patient Name: Ivonne Echevarria Today's Date: 04/10/2024 Encounter Diagnoses Name Primary? S/P arthroscopy of right shoulder Yes Right shoulder pain, unspecified chronicity Visit number: 17 Timed Code Treatment Minutes: 42 minutes Total Treatment Time: 42 minutes Time In: 8:00 AM Time Out: 8:42 AM History: Pt underwent surgery for right shoulder on 01/31/24; Full-thickness tearing involving essentially entire distal supraspinatus; likely tear with distal retraction of the long head biceps tendon. Pt compliant with use of sling. Pt states taking mostly OTC meds. Having to ice quite a bit, mostly at night. Precautions: [place] Subjective: Pt states she will have some days when she has no pain in right shoulder; other days it will ache in shoulder and upper arm. Pain: 0/10 Objective: PT Evaluation (02/14/2024) RIGHT SHOULDER AROM: not tested PROM: 126 degrees flexion, 90 degrees abduction, 50 degrees ER, 52 degrees IR Strength: not tested Palpation: min/mod tenderness right ant shoulder and upper arm Special Test: N/A Treatment: Manual Therapy: (13 minutes) Delivered manual ther to R shoulder PROM in all planes gentle, grade II and III GH mobs to improve mobility and decrease pain. Therapeutic Exercise: (29 minutes) Guided pt through exercises per grid. Verbal cues for form with exercises. Added ER with scap retracted without resistance. Therapeutic Activity: () Exercises to improve dynamic activities, functional tasks, functional mobility to return to prior activity level as needed. Unsupervised. Neuromuscular re-education: () Balance Training, Muscle Facilitation, Dynamic Stability, Core Stabilization, and Blood Flow Restriction Training (BFRT) as needed. To reduce upper trap involvement and to facilitate lower trap involvement. Fair follow through required mirror feedback. Modalities: (declined) CP/ IFC to R shoulder post session to decrease muscle soreness. Assessment: Visit #17 post right RCR 01-31-[address] Mcclellan. Pt able to achieve 75 degrees of passive ER this date. Pt with mild soreness noted following exercises. Will continue to progress as tolerated. Outcome Measure: Upper Extremity Functional Index (UEFI): 52/80 Outcome Measure: UEFI: 58/80 (03/17/24) Rehab Diagnosis: right shoulder pain and weakness Short Term Goal: To be met in 2 weeks Goal 1: Pt to be instructed in home exercise program. - met Cable Spooler Goals: To be met in 10 weeks Goal 1: Pt to report independence and compliance with home program. - met Goal 2: Pt to achieve 140 degrees of right shoulder flexion to assist with overhead reaching. - progressing Goal 3: Pt to achieve 120 degrees of right shoulder abduction to assist with grooming hair. - progressing Goal 4: Pt to achieve 4+ to 5/5 strength right shoulder in all planes to assist with functional tasks and lifting. - progressing Goal 5: Pt to score no less than 72/80 on UEFI indicating improved QOL. - progressing Pt will benefit from skilled PT for 2x/week from 02/14/2024 to 04/24/2024 to address the above impairments. I hereby deem this POC medically necessary. Please sign below. Date: documented in this encounter [facility] 05-10-2023 History of Present illness Narrative Patient is new to this provider, previously seen by Dr. Christian and Samantha Robert, whose notes I have reviewed. Since last visit patient had a coronary calcium score. This is a 1 year follow-up visit. Subjective : Interval review of systems is negative for chest discomfort pressure tightness heaviness palpitations lightheadedness orthopnea paroxysmal nocturnal dyspnea dependent edema or claudication TIA or CVA type symptoms or bleeding diathesis palpitations after divided with low-dose beta-blockers Home blood pressures are reading 90s to 100 diastolic. Blood pressure here is at target. Reviewed results of recent blood work to include comprehensive profile and CBC. I do not see a recent lipid profile to review. Has chronic aches and pains, and occasional vertigo, where the whole room spins and she gets nauseous History so Far : Palpitations (785.1) (R00.2) PVC symptomatic Reported 3% PVC burden [facility] summer 2021. We will request records. Essential hypertension (401.9) (I10) optimal in office Hyperlipidemia (272.4) (E78.5) Moderate intensity statin November 2021 HDL 61, LDL 118 Normal nuclear stress test (V72.85) September 2011 perfusion study low likelihood critical coronary artery disease Daily activity greater than 4 METS without concerning symptoms Normal echocardiogram (V72.85) 2006 echo LVEF 60% Overweight with body mass index (BMI) of 27 to 27.9 in adult (278.02,V85.23) (E66.3,Z68.27) Reviewed the merits of healthy lifestyle choices on overall cardiovascular health. Coronary calcium score May 2022 left main 0 LAD 18 circumflex 0 RCA 0 total of 18. 64th percentile ascending thoracic aorta 3.2 cm in diameter Objective Wt Readings from Last 3 Encounters: 05/10/23 64.9 kg (143 lb) 05/15/22 67.6 kg (149 lb) 05/30/21 65.8 kg (145 lb) Physical Exam: GENERAL APPEARANCE: in no acute distress. CHEST: Symmetric and non-tender. INTEGUMENT: Skin warm and dry HEENT: No gross abnormalities identified.No pallor or scleral icterus. NECK: Supple, no JVD, no bruit. NEURO/PSHCY: Alert and oriented x3; appropriate behavior and responses and responses LUNGS: Clear to auscultation bilaterally; normal respiratory effort. HEART: Rate and rhythm regular with no evident murmur; no gallop appreciated. ABDOMEN: Soft, non tender. MUSCULOSKELETAL: No gross deformities. EXTREMITIES: Warm There is no edema noted. Meds: Current Outpatient Medications Medication Instructions aspirin 81 mg EC tablet 1 tablet, oral, Daily calcium carbonate 600 mg calcium (1,500 mg) tablet 1 tablet, oral, Daily coenzyme Q-10 200 mg, oral, Daily estradiol (ESTRACE) 1 g, vaginal, 2 times weekly metoprolol succinate XL (TOPROL XL) 37.5 mg, oral, Daily multivit-min/ferrous fumarate (MULTI VITAMIN ORAL) 1 tablet, oral, Daily pantoprazole (ProtoNix) 40 mg EC tablet 1 tablet, oral, Daily PARoxetine (Paxil) 20 mg tablet 1 tablet, oral, Daily rosuvastatin (Crestor) 10 mg tablet 1 tablet, oral, Daily Allergies Allergen Reactions Clarithromycin Unknown Problem List: Patient Active Problem List Diagnosis Date Noted Essential hypertension 05/09/2023 Hyperlipidemia 05/09/2023 Palpitations 05/09/2023 BMI 26.0-26.9,adult 05/09/2023 BMI 27.0-27.9,adult 05/09/2023 Assessment: Blood pressure is at target PVCs are quiescent on low-dose beta-blockade Recent lipid profile is not available for review, liver enzymes are normal GFR is normal CBC is normal Coronary calcium score is less than 100 Recommendations: 1. 1 year follow-up 2. Comprehensive profile and lipid profile prior to next visit 3. Dynamic nature of coronary artery disease was discussed 4. Continue heart healthy lifestyle. Follow up : 1 year Lacey Damico MD documented in this encounter [facility] Work Phone: 05-10-2023 Instructions Nancy Gutierrez LPN - 05/10/2023 9:00 AM EDT Please bring all medicines, vitamins, and herbal supplements with you when you come to the office. Prescriptions will not be filled unless you are compliant with your follow up appointments or have a follow up appointment scheduled as per instruction of your physician. Refills should be requested at the time of your visit. documented in this encounter [facility] Work Phone: 01-17-2023 Evaluation note Encounter Date Diagnosis Assessment Notes Jan, Constipation (ICD-10 - K59.00) THE PATIENT IS DOING WELL WITH MIRLAX ONCE A DAY. SHE STATES IF SHE STOPS THIS OR SKIPS A DAY OR TWO, HER SYMPTOMS RETURN. CONTINUE MIRALAX DIALY. RETURN IN ONE YEAR Jan, GERD (gastroesophagea l reflux disease) (ICD-10 - K21.9) THE PATIENT'S GERD IS UNDER EXCELLENT CONTROL WITH PPI DAILY [facility] Other 07-10-2023 Hospital Discharge instructions Follow Up Care 01/15/2023 09:36:38 With:PRIMO GRUBER, Morgan Haynes, URL Address: [address] [place] [address]- When: Unknown [facility] 07-10-2023 Hospital Discharge instructions Patient Education 01/15/2023 09:26:30 Urinary Tract Infection, Adult, Mbfh-df-Fccq Urinary Tract Infection, Adult A urinary tract infection (UTI) is an infection of any part of the urinary tract. The urinary tractincludes: The kidneys. The ureters. The bladder. The urethra. These organs make, store, and get rid of pee (urine) in the body. What are the causes? This infection is caused by germs (bacteria) in your genital area. These germs grow and cause swelling (inflammation) of your urinary tract. What increases the risk? The following factors may make you more likely to develop this condition: Using a small, thin tube (catheter) to drain pee. Not being able to control when you pee or poop (incontinence). Being female. If you are female, these things can increase the risk: ?Using these methods to prevent : ?A medicine that kills sperm (spermicide). ?A device that blocks sperm (diaphragm). ?Having low levels of a female hormone (estrogen). ?Being . You are more likely to develop this condition if: You have genes that add to your risk. You are sexually active. You take antibiotic medicines. You have trouble peeing because of: ?A prostate that is bigger than normal, if you are male. ?A blockage in the part of your body that drains pee from the bladder. ?A kidney stone. ?A nerve condition that affects your bladder. ?Not getting enough to drink. ?Not peeing often enough. You have other conditions, such as: ?Diabetes. ?A weak disease-fighting system (immune system). ?Sickle cell disease. ?Gout. ?Injury of the spine. What are the signs or symptoms? Symptoms of this condition include: Needing to pee right away. Peeing small amounts often. Pain or burning when peeing. Blood in the pee. Pee that smells bad or not like normal. Trouble peeing. Pee that is cloudy. Fluid coming from the vagina, if you are female. Pain in the belly or lower back. Other symptoms include: Vomiting. Not feeling hungry. Feeling mixed up (confused). This may be the first symptom in older adults. Being tired and grouchy (irritable). A fever. Watery poop (diarrhea). How is this treated? Taking antibiotic medicine. Taking other medicines. Drinking enough water. In some cases, you may need to see a specialist. Follow these instructions at home: Medicines Take onva-qur-rxexrdx and prescription medicines only as told by your doctor. If you were prescribed an antibiotic medicine, take it as told by your doctor. Do not stop taking it even if you start to feel better. General instructions Make sure you: ?Pee until your bladder is empty. ?Do not hold pee for a long time. ?Empty your bladder after sex. ?Wipe from front to back after peeing or pooping if you are a female. Use each tissue one time whenyou wipe. Drink enough fluid to keep your pee pale yellow. Keep all follow-up visits. Contact a doctor if: You do not get better after 1 2 days. Your symptoms go away and then come back. Get help right away if: You have very bad back pain. You have very bad pain in your lower belly. You have a fever. You have chills. You feeling like you will vomit or you vomit. Summary A urinary tract infection (UTI) is an infection of any part of the urinary tract. This condition is caused by germs in your genital area. There are many risk factors for a UTI. Treatment includes antibiotic medicines. Drink enough fluid to keep your pee pale yellow. This information is not intended to replace advice given to you by your health care provider. Make sure you discuss any questions you have with your health care provider. Document Revised: 02/04/2021 Document Reviewed: 02/04/2021 [employer] Patient Education 2022 [employer]. Follow Up Care 01/20/2022 09:06:12 With:PRIMO GRUBER, Morgan Haynes, URL Address: [facility] [address], [place] [address]- [phone] When:Within 1 Year(s) [facility] 04-03-2023 Evaluation note* Encounter Date Diagnosis Assessment Notes Treatment Notes Treatment Clinical Notes Oct, GERD (gastroesophageal reflux disease) (ICD-10 - K21.9) Patient currently taking her pantoprazole 40mg 1 time daily. Patient states that she has been doing well with this this with no complaints. Patient to continue on pantoprazole 40mg. Oct, Barretts esophagus (ICD-10 - K22.70) Patient biopsy came back negative for Barretts. Oct, Constipation (ICD-10 - K59.00) Currently taking miralax daily, She does state sometimes she will have runny stools. Patient in try and increase daily fiber. Patient to start Metamucil fiber OTC. [facility] Other 10-08-2022 NotePROCEDURE: XR HAND RT MIN 3V HISTORY: Bone injury ; third digit bruising; no known injury COMPARISON: None. FINDINGS: BONES:No fracture, acute abnormality, or significant arthropathy. SOFT TISSUES:No visible soft tissue swelling. EFFUSION:None visible. OTHER: Negative. IMPRESSION: 1. No appreciable bone or soft tissue abnormality to account for patient's symptoms. Electronically authenticated by: BRIAN STEVEN Date: 2022-04-15 16:35[facility]07-15-2022 Hospital Discharge instructions Patient Education 01/20/2022 08:40:31 Urethral Stricture Urethral Stricture Urethral stricture is narrowing of the tube (urethra) that carries urine from the bladder out of the body. The urethra can become narrow due to scar tissue from an injury or infection. This can make it difficult to pass urine. In women, the urethra opens above the vaginal opening. In men, the urethra opens at the tip of the penis, and the urethra is much longer than it is in women. Because of the length of the male urethra, urethral stricture is much more common in men. This condition is treated with surgery. What are the causes? In both men and women, common causes of urethral stricture include: Urinary tract infection (UTI). Sexually transmitted infection (STI). Use of a tube placed into the urethra to drain urine from the bladder (urinary catheter). Urinary tract surgery. In men, common causes of urethral stricture include: A severe injury to the pelvis. Prostate surgery. Injury to the penis. In many cases, the cause of urethral stricture is not known. What increases the risk? You are more likely to develop this condition if you: Are male. Men who have had prostate surgery are at risk of developing this condition. Use a urinary catheter. Have had urinary tract surgery. What are the signs or symptoms? The main symptom of this condition is difficulty passing urine. This may cause decreased urine flow, dribbling, or spraying of urine. Other symptom of this condition may include: Frequent UTIs. Blood in the urine. Pain when urinating. Swelling of the penis in men. Inability to pass urine (urinary obstruction). How is this diagnosed? This condition may be diagnosed based on: Your medical history and a physical exam. Urine tests to check for infection or bleeding. X-rays. Ultrasound. Retrograde urethrogram. This is a type of test in which dye is injected into the urethra and then an X-ray is taken. Urethroscopy. This is when a thin tube with a light and camera on the end (urethroscope) is used tolook at the urethra. How is this treated? This condition is treated with surgery. The type of surgery that you have depends on the severity of your condition. You may have: Urethral dilation. In this procedure, the narrow part of the urethra is stretched open (dilated) with dilating instruments or a small balloon. Urethrotomy. In this procedure, a urethroscope is placed into the urethra, and the narrow part of the urethra is cut open with a surgical blade inserted through the urethroscope. Open surgery. In this procedure, an incision is made in the urethra, the narrow part is removed, and the urethra is reconstructed. Follow these instructions at home: Take fxwb-ctf-slpiuye and prescription medicines only as told by your health care provider. If you were prescribed an antibiotic medicine, take it as told by your health care provider. Do notstop taking the antibiotic even if you start to feel better. Drink enough fluid to keep your urine pale yellow. Keep all follow-up visits as told by your health care provider. This is important. Contact a health care provider if: You have signs of a urinary tract infection, such as: ?Frequent urination or passing small amounts of urine frequently. ?Needing to urinate urgently. ?Pain or burning with urination. ?Urine that smells bad or unusual. ?Cloudy urine. ?Pain in the lower abdomen or back. ?Trouble urinating. ?Blood in the urine. ?Vomiting or being less hungry than normal. ?Diarrhea or abdominal pain. ?Vaginal discharge, if you are female. Your symptoms are getting worse instead of better. Get help right away if: You cannot pass urine. You have a fever. You have swelling, bruising, or discoloration of your genital area. This includes the penis, scrotum, and inner thighs for men, and the outer genital organs (vulva) and inner thighs for women. You develop swelling in your legs. You have difficulty breathing. Summary Urethral stricture is narrowing of the tube (urethra) that carries urine from the bladder out of the body. The urethra can become narrow due to scar tissue from an injury or infection. This condition can make it difficult to pass urine. This condition is treated with surgery. The type of surgery that you have depends on the severity of your condition. Contact a health care provider if your symptoms get worse or you have signs of a urinary tract infection. This information is not intended to replace advice given to you by your health care provider. Make sure you discuss any questions you have with your health care provider. Document Released: 07/21/2016 Document Revised: 02/05/2019 Document Reviewed: 02/05/2019 [employer] Patient Education 2020 [employer]. Follow Up Care 01/17/2021 13:06:47 With:PRIMO GRUBER, Morgan Haynes, URL Address: [address] [place] [address]- When:Within 1 Year(s) [facility] 04-21-2022 NoteHNO ID: [id number] Author: Adri Lozano Service: ? Author Type: ? Type: Progress Notes Filed: 10/27/2021 1:50 PM Note Text: Sleep Study Check-In Documentation Date: October 27, 2021 Name: Ivonne Echevarria Comments: HST was returned in working order with all sleep questionnaires [place] [id number] History of Present illness Narrative* Adri Lozano - 10/27/2021 1:50 PM EDT Sleep Study Check-In Documentation Date: October 27, 2021 Name: Ivonne Echevarria Comments: HST was returned in working order with all sleep questionnaires Adri Lozano * Koko Tolentnio - 10/24/2021 9:20 AM EDT [facility]# [id number] , date shipped out 10/24 Tracking mailout:[id number] Tracking return: [id number] * Ester Del Angel MD - 10/17/2021 12:15 PM EDT October 17, 2021 Standing PSG Orders signed in the last 90 days None Future PSG Orders signed in the last 90 days Ordered Auth. provider HOME SLEEP APNEA TEST (HSAT) [[id number]] 09/22/21 Gasper Hamilton MD Assoc. diagnoses: Heart palpitations [R00.2] Q: Indications: A: Obstructive sleep apnea Q: STOP-BANG conditions - Select All That Apply: A: AGE > 50 A2: high blood PRESSURE A3: SNORINGthat is loud or disruptive A4: OBSERVED sleep apnea A5: TIREDNESS, fatigue or sleepiness during theday Q: Current use of supplemental oxygen during sleep period?: A: No All Prior Sleep Studies (past 365 days) Some values may be hidden. Unless noted otherwise, only the newest values recorded on each date aredisplayed. Sleep Studies HOME SLEEP APNEA TEST (HSAT) Future Expected: 09/22/2021 Expires: 09/22/22 BMI Readings from Last 2 Encounters: 08/12/21 : 27.07 kg/m 09/29/16 : 27.14 kg/m PAST MEDICAL HISTORY Diagnosis Date HLD (hyperlipidemia) Hypertension Panic attack Ventricular flutter (HCC) The medical record was reviewed to determine if the proposed sleep study conforms to the AASM Practice Parameters for the Indications for Polysomnography and Related Procedures, or if the sleep studyis indicated for other reasons. Indications for study: ARINA suspected without comorbid medical or sleep disorders Sleep study to be performed: Home Sleep Apnea Test (HSAT) Special instructions: None-follow laboratory protocol Jonathan Valerio [facility] Staff Note: I have read the above protocol, edited as needed, and agree to the plan. Ester Del Angel MD 8:17 PM, 10/17/2021 * Ivette Caro Pss - 10/14/2021 3:53 PM EDT October 14, 2021 An order has been received for Home Sleep Apnea Test (HSAT) from Dr. Gasper Hamilton MD, a B[facility] Staff. Visit prep complete. Comments :No The sleep study is scheduled for 10/25. Insurance: Payor: MARY JOEM [employer] CR[employer] BLUE SHIELD / Plan: ANTHEM MEDIBLUE ACCESS / Product Type: PPO / Payor/Plan Subscr Sex Relation Sub. Ins. ID Effective Group Num 1. MARKELL ECHEVARRIAIVONNEMARYANNE 1955 Female Self [id number] 08/09/21 [id number] [id number] Ivette Lozano [facility] NoteHNO ID: [id number] Author: Koko Tolentino Service: ? Author Type: ? Type: Progress Notes Filed: 10/27/2021 1:50 PM Note Text: [facility]# [id number] , date shipped out 10/24 Tracking mailout:[id number] Tracking return: [id number]22 NoteHNO ID: [id number] Author: Gasper Hamilton MD Service: ? Author Type: Physician Type: Progress Notes Filed: 10/19/2021 4:38 PM Note Text: Heart, Vascular AND Thoracic [place] Department of Cardiovascular Medicine VIRTUAL VIDEO VISIT ESTABLISHED OUTPATIENT VISIT SERVICE DATE: 10/19/2021 Patient: Ivonne Echevarria SERVICE TIME: 4:25 PM : 1955 This is a virtual video visit. It required patient-provider interaction for the medical decision making as documented below. Ivonne Echevarria has consented to this video encounter. Ivonne Echevarria is a 66 year old female seen for followup. CHIEF COMPLAINT Followup HISTORY OF PRESENT ILLNESS Ivonne Echevarria is a 66 year old female presenting for followup. CARDIAC HISTORY: ? Palpitations, evaluated by [facility] as well as Dr. Schneider?in [place]. ?Chronic in nature. ?Has been on atenolol and digoxin without change, digoxin was stopped. ?Eventually atenolol was stopped and replaced with bisoprolol 5 mg ? May 2021 outside report: She indicates when she walks, up to 3 miles at a time, she actually feels better. ?She is less aware of palpitations. ?Indicates that her palpitations worsened 2 to 3 months ago about the same time the dose of estrogen was increased and is unclear if there is any correlation of that. ?Was taking bisoprolol at nighttime and the suggestion was made for to take it earlier in the day so that he would likely have more effective nighttime which seems to be the most bothersome time for her. ?A trial for magnesium daily was given the recommendation was made to suggest changing her estrogen dose back to where it was previously ? Strong family history of coronary disease ? Myocardial perfusion study with exercise in 2011 was normal though did note exercise-induced ST-T abnormality, quoted to likely reflect false positivity in view of no provoked chest pain and no evidence of ischemia by perfusion imaging. ?Patient exercised for 12 minutes. ? Prior lipid panel: LDL 166, HDL 36, total cholesterol 223. ?On simvastatin 10 mg then changed to Crestor 10 mg ? Most recent LDL from 03/2021 of 103 ? Asthma ? Former smoker ? Per 2019 outside records, indicates some tension type sensation in her chest but this is nonexertional and is not thought to be ischemic ? CARDIAC MEDS: ? Co-Q10 ? Metoprolol 25mg XL. ? Crestor 10 mg ? TODAY:? ? pretty good . Tolerating MTP 25mg succinate. Feel better taking. Chocolate and alcohol use lead to increase temporarily in palpiation frequency but self limited. Infrequent consumption. Denies dyspnea, chest pain, presyncope, sycnope. On Background: ? Looking for second opinion on heart palpitations ? In the past, able to feel when it? fluttered, which she describes as a feeling of palpitations that she could feel. ? Feels like there are some skipped beats with a headache that resolves. Never woken up at night. She's concerned that this could represent a worsening of her condition and is looking for further workup. ? She endorses that her palpitations are much more present when she sleeps on on her right side, not her left. ? No orthopnea, shortness of breath, lower extremity edema. ? Endorses some back ache when sitting up, pleuritic. ? Activity warner, able to walk 3x per day without palpitations. Able to go up a flight of stairs without symptoms. ? Patient endorses taking her statin every other day, now increased to daily with her new statin. ? ASSESSMENT:? Ms. Echevarria is a 66 F with PMHx HTN, HLD, who presents for longstanding palpitations.?Overall, without evidence of structural cardiac abnormality. Zio showing 3% isolated ventricular ectopic beats (2.8%). Sinus rhythm otherwise. TSH has been checked in past and was normal. She snores without witnessed apnea or daytime fatigue; to benefit from sleep study. I changed beta sebastien to metoprolol to assess for improvement in palpitation symptoms which led to symptom improvement. LDL rather controlled at 106 mg/dL, now back on daily crestor (was taking q other day). Reassurance given; no indication at this time for echocardiogram. Questions answered; patient feels more reassured.? ? PLAN:? ? Continue MTP succinate 25mg; ? Continue crestor 10 mg daily ? Home sleep study ordered and occurring in near future. If positive, to refer patient to sleep medicine ? May followup as needbe in my clinic in future. PAST MEDICAL HISTORY Diagnosis Date - HLD (hyperlipidemia) - Hypertension - Panic attack - Ventricular flutter (HCC) PAST SURGICAL HISTORY Procedure Laterality Date - SECTION HX - SECTION HX - REPAIR ROTATOR CUFF,ACUTE - TONSILLECTOMY HX FAMILY HISTORY Problem Relation Age of Onset - Heart Attack Mother x2 silent - Heart Mother CABG - Hypertension Mother - Hyperlipidemia Mother - Heart Attack Father x 2 - Hypertension (more content not included)...[facility] 10-19-2021 History of Present illness Narrative* Gasper Hamilton MD - 10/19/2021 4:24 PM EDT Images from the original note were not included. [facility] [place] Department of Cardiovascular Medicine VIRTUAL VIDEO VISIT ESTABLISHED OUTPATIENT VISIT SERVICE DATE: 10/19/2021 Patient: Ivonne Echevarria SERVICE TIME: 4:25 PM : 1955 This is a virtual video visit. It required patient-provider interaction for the medical decision making as documented below. Ivonne Echevarria has consented to this video encounter. Ivonne Echevarria is a 66 year old female seen for followup. CHIEF COMPLAINT Followup HISTORY OF PRESENT ILLNESS Ivonne Echevarria is a 66 year old female presenting for followup. CARDIAC HISTORY: Palpitations, evaluated by [facility] as well as Dr. Schneider in [place]. Chronic in nature. Has been on atenolol and digoxin without change, digoxin was stopped. Eventually atenolol wasstopped and replaced with bisoprolol 5 mg ? May 2021 outside report: She indicates when she walks, up to 3 miles at a time, she actually feels better. She is less aware of palpitations. Indicates that her palpitations worsened 2 to 3 months ago about the same time the dose of estrogen was increased and is unclear if there is any correlation of that. Was taking bisoprolol at nighttime and the suggestion was made for to take it earli er in the day so that he would likely have more effective nighttime which seems to be the most bothersome time for her. A trial for magnesium daily was given the recommendation was made to suggest changing her estrogen dose back to where it was previously Strong family history of coronary disease ? Myocardial perfusion study with exercise in 2012 was normal though did note exercise-induced ST-Tabnormality, quoted to likely reflect false positivity in view of no provoked chest pain and no evidence of ischemia by perfusion imaging. Patient exercised for 12 minutes. ? Prior lipid panel: LDL 166, HDL 36, total cholesterol 223. On simvastatin 10 mg then changed to Crestor 10 mg ? Most recent LDL from 03/2021 of 103 Asthma Former smoker Per 2019 outside records, indicates some tension type sensation in her chest but this is nonexertional and is not thought to be ischemic CARDIAC MEDS: Co-Q10 Metoprolol 25mg XL. Crestor 10 mg TODAY: pretty good . Tolerating MTP 25mg succinate. Feel better taking. Chocolate and alcohol use lead to increase temporarily in palpiation frequency but self limited. Infrequent consumption. Denies dyspnea, chest pain, presyncope, sycnope. On Background: Looking for second opinion on heart palpitations In the past, able to feel when it fluttered, which she describes as a feeling of palpitations that she could feel. Feels like there are some skipped beats with a headache that resolves. Never woken up at night. She's concerned that this could represent a worsening of her condition and is looking for further workup. She endorses that her palpitations are much more present when she sleeps on on her right side, not her left. No orthopnea, shortness of breath, lower extremity edema. Endorses some back ache when sitting up, pleuritic. Activity warner, able to walk 3x per day without palpitations. Able to go up a flight of stairs without symptoms. Patient endorses taking her statin every other day, now increased to daily with her new statin. ASSESSMENT: Ms. Echevarria is a 66 F with PMHx HTN, HLD, who presents for longstanding palpitations. Overall, without evidence of structural cardiac abnormality. Zio showing 3% isolated ventricular ectopic beats (2.8%). Sinus rhythm otherwise. TSH has been checked in past and was normal. She snores without witnessed apnea or daytime fatigue; to benefit from sleep study. I changed beta sebastien to metoprolol to assess for improvement in palpitation symptoms which led to symptom improvement. LDL rather controlled at 106 mg/dL, now back on daily crestor (was taking q other day). Reassurance given; no indication at this time for echocardiogram. Questions answered; patient feelsmore reassured. PLAN: Continue MTP succinate 25mg; Continue crestor 10 mg daily Home sleep study ordered and occurring in near future. If positive, to refer patient to sleep medicine May followup as needbe in my clinic in future. PAST MEDICAL HISTORY Diagnosis Date HLD (hyperlipidemia) Hypertension Panic attack Ventricular flutter (HCC) PAST SURGICAL HISTORY Procedure Laterality Date SECTION HX SECTION HX REPAIR ROTATOR CUFF,ACUTE TONSILLECTOMY HX FAMILY HISTORY Problem Relation Age of Onset Heart Attack Mother x2 silent Heart Mother CABG Hypertension Mother Hyperlipidemia Mother Heart Attack Father x 2 Hypertension Brother Hyperlipidemia Brother Stroke Brother mini Hypertension Sister Hyperlipidemia Sister Hypertension Brother Hyperlipidemia Brother Blood Clots Brother Stroke Brother DVT Hypertension Brother Hyperlipidemia Brother Social History Tobacco Use Smoking status: Former Smoker Quit date: 1989 Years since quittin.3 Smokeless tobacco: Never Used Substance Use Topics Alcohol use: Yes Comment: couple drinks weekly Drug use: Not on file ALLERGIES Allergen Reactions Biaxin [Clarithromy* Intolerance Dogs Itching CURRENT MEDICATIONS metoprolol succinate ER (TOPROL XL) 25 mg 24 hr tablet Take 1 tablet by mouth once daily. estradiol (ESTRACE) 0.01 % (0.1 mg/gram) vaginal cream Use 1 g vaginally two times a week. calcium carbonate/vitamin D3 (CALCIUM 600 + D,3, ORAL) Take 1 tablet by mouth once daily. Calcium 600 mg D3 800 IU polyethylene glycol 3350 (MIRALAX ORAL) Take by mouth once daily. Zinc 50 mg tab Take 50 mg by mouth once daily. Biotin 1 mg tab Take by mouth once daily. pantoprazole DR (PROTONIX) 40 mg tablet Take 40 mg by mouth once daily. PARoxetine (PAXIL) 10 mg tablet Take 10 mg by mouth once daily. rosuvastatin (CRESTOR) 5 mg tablet Take 5 mg by mouth once daily. MULTIVITAMIN ORAL Take 1 tablet by mouth once daily. UBIDECARENONE (CO Q-10 ORAL) Take 200 mg by mouth once daily. aspirin, enteric coated (ASPIRIN, ENTERIC COATED) 81 mg EC tablet Take 81 mg by mouth once daily. Entries in BOLD are positive ROS endorsed by the patient. All other ROS has been reviewed and is negative with the exception of the BOLD entries. REVIEW OF SYSTEMS: CONSTITUTIONAL: No weight loss, malaise or fevers. HEENT: Negative for frequent or significant headaches, No changes in hearing or vision, no nose bleeds or other nasal problems. RESPIRATORY: Negative for cough, wheezing, or shortness of breath CARDIOVASCULAR: Negative for chest pain, leg swelling or palpitations GI: Negative for abdominal discomfort, blood in stools or black stools or change in bowel habits. : No history of dysuria, frequency, or incontinence and No difficulty urination, nocturia >1 times per night or hematuria. MUSCULOSKELETAL: Negative for joint pain or swelling, back pain or muscle pain. ENDOCRINE: Negative for cold or heat intolerance, polyuria, polydipsia and goiter HEMATOLOGIC/LYMPHATIC: Negative for prolonged bleeding, bruising easily or swollen nodes. NEUROLOGIC: No history or headaches, syncope, paralysis, seizures or tremors. INTEGUMENTARY: Negative for lesions, rash, and itching. PHYSICAL EXAMINATION: GENERAL: alert and appropriate, in no distress, well-hydrated, well nourished and happy, smiling, interactive SKIN: no rash noted HEAD: normocephalic, no abnormality or lesion noted EYES: no injection and visual acuity is grossly normal EARS: external ears appear normal NOSE: external nose normal without rhinorrhea OROPHARYNX: moist mucus membranes, no tonsillar hypertrophy/exudate, uvula midline and pharynx non-erythematous, lips, teeth and gums are without obvious lesion RESPIRATORY: breathing non-labored and no grunting/flaring/retractions CHEST: equal chest rise with normal respiratory effort HEART: no JVD noted ABDOMEN: nondistended EXTREMITIES: no lesions on visible upper extremities NEUROLOGIC: oriented and alert Zio ECG 08/2021 PRIOR TESTING: Exercise treadmill test, 2005 Normal stress test; exercise 7 minutes and 8 seconds, peak heart rate 148 bpm, shortness of breath at peak stress but denies chest pain, stress ECGs revealed no significant changes. Stress echocardiogram 2005 Normal stress echo per written report Holter monitor date uncertain Rare PACs and PVCs, sinus tachycardia Echocardiogram 2006 EF 60%, mild tricuspid regurgitation, left atrium normal in size Myocardial perfusion imaging with exercise 2011 Probably normal perfusion stress test, no evidence of ischemia or myocardial infarction by perfusion imaging, Dominique treadmill score of 12, exercise-induced ST-T abnormality likely false positive (12 minutes exercised, achieved 98% of MPHR achieved for age Stress test (09/12/2011) with ?false positive S changes I have personally reviewed the Electrocardiogram and outside testing reports. I personally spent 30 minutes in total time involved in the management and care of this patient. Gasper Hamilton MD October 19, 2021 4:25 PM documented in this encounter[facility] NoteHNO ID: [id number] Author: Ester Del Angel MD Service: ? Author Type: Physician Type: Progress Notes Filed: 10/27/2021 1:50 PM Note Text: October 17, 2021 Standing PSG Orders signed in the last 90 days None Future PSG Orders signed in the last 90 days Ordered Auth. provider HOME SLEEP APNEA TEST (HSAT) [[id number]] 09/22/21 Gasper Hamilton MD Assoc. diagnoses: Heart palpitations [R00.2] Q: Indications: A: Obstructive sleep apnea Q: STOP-BANG conditions - Select All That Apply: A: AGE > 50 A2: high blood PRESSURE A3: SNORING that is loud or disruptive A4: OBSERVED sleep apnea A5: TIREDNESS, fatigue or sleepiness during the day Q: Current use of supplemental oxygen during sleep period?: A: No All Prior Sleep Studies (past 365 days) Some values may be hidden. Unless noted otherwise, only the newest values recorded on each date are displayed. Sleep Studies HOME SLEEP APNEA TEST (HSAT) Future Expected: 09/22/2021 Expires: 09/22/22 BMI Readings from Last 2 Encounters: 08/12/21 : 27.07 kg/m? 09/29/16 : 27.14 kg/m? PAST MEDICAL HISTORY Diagnosis Date - HLD (hyperlipidemia) - Hypertension - Panic attack - Ventricular flutter (HCC) The medical record was reviewed to determine if the proposed sleep study conforms to the [facility] Practice Parameters for the Indications for Polysomnography and Related Procedures, or if the sleep study is indicated for other reasons. Indications for study: ARINA suspected without comorbid medical or sleep disorders Sleep study to be performed: Home Sleep Apnea Test (HSAT) Special instructions: None-follow laboratory protocol Jonathan Valerio [facility] Staff Note: I have read the above protocol, edited as needed, and agree to the plan. Ester Del Angel MD 8:17 PM, 10/17/2021[facility]04-08-2022 NoteHNO ID: [id number] Author: Ivette Caro Pss Service: ? Author Type: ? Type: Progress Notes Filed: 10/27/2021 1:50 PM Note Text: October 14, 2021 An order has been received for Home Sleep Apnea Test (HSAT) from Dr. Gasper Hamilton MD, a B. [facility] Staff. Visit prep complete. Comments :No The sleep study is scheduled for 10/25. Insurance: Payor: [employer] AND Death by Party / Plan: ANTHEM MEDIBLUE ACCESS / Product Type: PPO / Payor/Plan Subscr Sex Relation Sub. Ins. ID Effective Group Num 1. MARKELL YANDEL IVONNE SZYMANSKI 1955 Female Self [id number] 08/09/21 [id number] [id number] Ivette Caro [facility]03-17-2022 NoteHNO ID: [id number] Author: Gasper Hamilton MD Service: ? Author Type: Physician Type: Progress Notes Filed: 09/22/2021 8:15 AM Note Text: [facility] [place] Department of Cardiovascular Medicine VIRTUAL VIDEO VISIT ESTABLISHED OUTPATIENT VISIT SERVICE DATE: 09/21/2021 Patient: Ivonne Echevarria SERVICE TIME: 10:21 PM : 1955 This is a virtual video visit. It required patient-provider interaction for the medical decision making as documented below. Ivonne Echevarria has consented to this video encounter. Ivonne Echevarria is a 66 year old female seen for followup. CHIEF COMPLAINT Followup HISTORY OF PRESENT ILLNESS Ivonne Echevarria is a 66 year old female presenting for followup Second opinion Cardiovascular evaluation ? HISTORY OF PRESENT ILLNESS: Ms. Echevarria is a 65 year old female who presents today for cardiovascular evaluation. ? CARDIAC HISTORY: ? Palpitations, evaluated by [facility] as well as Dr. Schneider in [place]. Chronic in nature. Has been on atenolol and digoxin without change, digoxin was stopped. Eventually atenolol was stopped and replaced with bisoprolol 5 mg ? May 2021 outside report: She indicates when she walks, up to 3 miles at a time, she actually feels better. She is less aware of palpitations. Indicates that her palpitations worsened 2 to 3 months ago about the same time the dose of estrogen was increased and is unclear if there is any correlation of that. Was taking bisoprolol at nighttime and the suggestion was made for to take it earlier in the day so that he would likely have more effective nighttime which seems to be the most bothersome time for her. A trial for magnesium daily was given the recommendation was made to suggest changing her estrogen dose back to where it was previously ? Strong family history of coronary disease ? Myocardial perfusion study with exercise in 2011 was normal though did note exercise-induced ST-T abnormality, quoted to likely reflect false positivity in view of no provoked chest pain and no evidence of ischemia by perfusion imaging. Patient exercised for 12 minutes. ? Prior lipid panel: LDL 166, HDL 36, total cholesterol 223. On simvastatin 10 mg then changed to Crestor 10 mg ? Most recent LDL from 03/2021 of 103 ? Asthma ? Former smoker ? Per 2019 outside records, indicates some tension type sensation in her chest but this is nonexertional and is not thought to be ischemic ? CARDIAC MEDS: ? Co-Q10 ? Bisoprolol ? Crestor 10 mg ? TODAY: Feels about the same. Palpitations persists, no change. On Background: ? Looking for second opinion on heart palpitations ? In the past, able to feel when it fluttered, which she describes as a feeling of palpitations that she could feel. ? Feels like there are some skipped beats with a headache that resolves. Never woken up at night. She's concerned that this could represent a worsening of her condition and is looking for further workup. ? She endorses that her palpitations are much more present when she sleeps on on her right side, not her left. ? No orthopnea, shortness of breath, lower extremity edema. ? Endorses some back ache when sitting up, pleuritic. ? Activity warner, able to walk 3x per day without palpitations. Able to go up a flight of stairs without symptoms. ? Patient endorses taking her statin every other day, now increased to daily with her new statin. ? ASSESSMENT: Ms. Echevarria is a 66 F with PMHx HTN, HLD, who presents for longstanding palpitations. Overall, without evidence of structural cardiac abnormality. ECG today with two PVCs; wished to quantify the ectopy burden with a Zio. Zio showed 2.8% isolated ventricular ectopy. Symptoms reported correlating to sinus rhythm and ectopy. TSH has been checked in past and was normal. She snores without witnessed apnea or daytime fatigue; to benefit from sleep study. Could consider change in beta sebastien to metoprolol to assess for improvement in palpitation symptoms LDL rather controlled at 106 mg/dL, now back on daily crestor (was taking q other day). Reassurance given; no indication at this time for echocardiogram. Questions answered; patient feels more reassured. ? PLAN: ? Change beta sebastein to MTP succinate 25mg; uptitrate as needbe ? Continue crestor 10 mg daily ? Home sleep study ordered. If positive, to refer patient to sleep medicine ? 2 month VV followup to check in. ? PAST MEDICAL HISTORY Diagnosis Date - HLD (hyperlipidemia) - Hypertension - Panic attack - Ventricular flutter (HCC) PAST SURGICAL HISTORY Procedure Laterality Date - SECTION HX - SECTION HX - REPAIR ROTATOR CUFF,ACUTE - TONSILLECTOMY HX FAMILY HISTORY Problem Relation Age of Onset - Heart Attack Mother x2 silent - Heart Mother CABG - Hypertension Mother - Hyperlipidemia Mother - Heart At (more content not included)...[facility]02-08-2022 Evaluation note* Encounter Date Diagnosis Assessment Notes Treatment Notes Treatment Clinical Notes Aug, GERD (gastroesophageal reflux disease) (ICD-10 - K21.9) Aug, Barretts esophagus (ICD-10 - K22.70) Aug, Constipation (ICD-10 - K59.00) CONTINUE MIRALAX DIRECTED [facility] Other 02-04-2022 NoteHNO ID: [id number] Author: Gilmar Jones, DO Service: ? Author Type: Physician Type: Procedures Filed: 09/22/2021 2:50 PM Note Text: Patient Name: Ivonne Echevarria : 1955 Ordering Provider: GASPER HAMILTON Indication: R00.2 Palpitations Type of Monitor: Extended Monitoring-Zio Patch Enrollment Dates: 09/02/2021-09/16/2021[facility]02-04-2022 Note HNO ID: [id number] Author: Gasper Hamilton MD Service: ? Author Type: Physician Type: Progress Notes Filed: 08/12/2021 11:45 AM Note Text: [facility] [place] [facility] Department of Cardiovascular Medicine SECTION OF CLINICAL CARDIOLOGY OUTPATIENT VISIT DATE August 12, 2021 OUTPATIENT VISIT TYPE NEW PRIMARY CARE PHYSICIAN : Conchis Zamora, [address] [place] [address] REFERRING PHYSICIAN: Teagan Szymanski [id number] [facility] [id number] CHIEF COMPLAINT: Second opinion Cardiovascular evaluation HISTORY OF PRESENT ILLNESS: Ms. Echevarria is a 65 year old female who presents today for cardiovascular evaluation. CARDIAC HISTORY: ? Palpitations, evaluated by [facility] as well as Dr. Schneider in [place]. Chronic in nature. Has been on atenolol and digoxin without change, digoxin was stopped. Eventually atenolol was stopped and replaced with bisoprolol 5 mg ? May 2021 outside report: She indicates when she walks, up to 3 miles at a time, she actually feels better. She is less of where palpitations. Indicates that her palpitations worsened 2 to 3 months ago about the same time the dose of estrogen was increased and is unclear if there is any correlation of that. Was taking bisoprolol at nighttime and the suggestion was made for to take it earlier in the day so that he would likely have more effective nighttime which seems to be the most bothersome time for her. A trial for magnesium daily was given the recommendation was made to suggest changing her estrogen dose back to where it was previously ? Strong family history of coronary disease ? Myocardial perfusion study with exercise in 2011 was normal though did note exercise-induced ST-T abnormality, quoted to likely reflect false positivity in view of no provoked chest pain and no evidence of ischemia by perfusion imaging. Patient exercised for 12 minutes. ? Prior lipid panel: LDL 166, HDL 36, total cholesterol 223. On simvastatin 10 mg then changed to Crestor 10 mg ? Most recent LDL from 03/2021 of 103 ? Asthma ? Former smoker ? Per 2020 outside records, indicates some tension type sensation in her chest but this is nonexertional and is not thought to be ischemic CARDIAC MEDS: ? Bisoprolol 5 mg ? Co-Q10 ? Crestor 10 mg TODAY: - Looking for second opinion on heart palpitations - In the past, able to feel when it fluttered, which she describes as a feeling of palpitations that she could feel. - Feels like there are some skipped beats with a headache that resolves. Never woken up at night. She's concerned that this could represent a worsening of her condition and is looking for further workup. - She endorses that her palpitations are much more present when she sleeps on on her right side, not her left. - No orthopnea, shortness of breath, lower extremity edema. - Endorses some back ache when sitting up, pleuritic. - Activity warner, able to walk 3x per day without palpitations. Able to go up a flight of stairs without symptoms. - Patient endorses taking her statin every other day, now increased to daily with her new statin. ASSESSMENT: Ms. Echevarria is a 65 F with PMHx HTN, HLD, who presents for longstanding palpitations. Overall, without evidence of structural cardiac abnormality. ECG today with two PVCs; wish to quantify the ectopy burden with a Zio (she's going to [place] for two weeks but wishes to wear it upon her return; will mail out). TSH has been checked in past and was normal. She snores without witnessed apnea or daytime fatigue (if ectopy burden high, will consider home sleep study). Could consider change in beta esbastien to metoprolol to assess for improvement in palpitation symptoms; will followup on this next visit. LDL rather controlled at 106 mg/dL, now back on daily crestor (was taking q other day). Reassurance given; no indication at this time for echocardiogram. Questions answered; patient feels more reassured. PLAN: - Zio patch to evaluate for PVC burden given her ECG with 2 PVCs over 10 second period. - Follow-up with me virtually in 6 weeks - Continue crestor 10 mg daily PAST MEDICAL HISTORY Diagnosis Date - HLD (hyperlipidemia) - Hypertension - Ventricular flutter (HCC) PAST SURGICAL HISTORY Procedure Laterality Date - SECTION HX - REPAIR ROTATOR CUFF,ACUTE - TONSILLECTOMY HX SOCIAL HISTORY Social History Tobacco Use - Smoking status: Not on file - Smokeless tobacco: Not on file Substance Use Topics - Alcohol use: Not on file - Drug use: Not on file No family history on file. ALLERGIES: ALLERGIES Allergen Reactions - Biaxin [Clarithromy* Intolerance MEDICATIONS: ergocalciferol, vitamin D2, (DRISDOL) 50,000 unit capsule Take 1 capsule by mouth twice a week. (FOR EXAMPLE ONE CAPSULE ON SUNDAY AND ONE ON (more content not included)...[facility] [place] Future Appointments Appointment Date:01/20/2022 08:15:00 AM Scheduled Provider:Morgan TILLMAN MD Location:[facility] Appointment Type:URO Office Visit Diagnostic Tests Pending * [facility] Appointment Date:01/20/2022 08:15:00 AM Scheduled Provider:Morgan TILLMAN MD Location:[facility] Appointment Type:URO Office Visit [facility] evaluation + Plan note Future Appointments Appointment Date:01/15/2023 08:45:00 AM Scheduled Provider:Morgan TILLMAN MD Location:[facility] Appointment Type:URO Office Visit [facility] evaluation + Plan note Future Appointments Appointment Date:01/15/2023 08:45:00 AM Scheduled Provider:Morgan TILLMAN MD Location:[facility] Appointment Type:URO Office Visit Diagnostic Tests Pending * [facility]ments Appointment Date:01/21/2024 08:45:00 AM Scheduled Provider:Morgan TILLMAN MD Location:[facility] Appointment Type:URO Office Visit [facility] evaluation + Plan note Future Appointments Appointment Date:04/22/2024 09:00:00 AM Scheduled Provider:EDGAR Ruff APRN, [place] X Location:[facility] Appointment Type:URO Office Visit [facility] evaluation note* Diagnosis Heart palpitations- Primary Palpitations documented [facility] Diagnosis Sleep apnea, unspecified type- Primary documented in this [facility] [employer] Other Evaluation noteNo assessment information available [facility] Work Phone: Evaluation note* Diagnosis Essential hypertension Unspecified essential hypertension Mixed hyperlipidemia Palpitations BMI 26.0-26.9,adult documented in this encounter [facility] Work Phone: Evaluation note* Diagnosis S/P arthroscopy of right shoulder- Primary Right shoulder pain, unspecified chronicity documented in this encounter [facility] HealthcareEvaluation [facility]* Diagnosis S/P arthroscopy of right shoulder- Primary Right shoulder pain, unspecified chronicity documented in this encounter [facility] HealthcareEvaluation note* Diagnosis Routine general medical examination at a health care facility- Primary Mitral valve prolapse Mitral valve disorders Dukes's esophagus with dysplasia Gastroesophageal reflux disease with esophagitis without hemorrhage Essential hypertension (CMS/HCC) Unspecified essential hypertension Mixed hyperlipidemia (CMS/HCC) Mixed hyperlipidemia Anxiety Anxiety state, unspecified Age-related osteoporosis without current pathological fracture (CMS/HCC) Irritation of eyelid documented in this encounter [facility] Narrative - Reported* Type Description Date Medical History acid reflux Medical History Barretts esophagus Medical History allergies Medical History Panic attacks Surgical History C section Surgical History tonsillectomy Hospitalization History child [facility] [employer] Other History of Present illness Narrative* Ms. Echevraria is a 65-year-old female seen back today for follow-up on her palpitations. She has had a previous Holter monitor that actually showed relatively low volume of ectopy but she is symptomatic with palpitations. She has had a normal ejection fraction previously estimated with prior testing. She indicates her palpitations seem like they have worsened. They are more bothersome to her. She hasno history of syncope or near syncope. She remains active. She indicates when she walks and she sometimes walks up to 3 miles at a time that she actually feels better. She is less aware of the palpitations she has no complaints of chest pain. She has been on bisoprolol chronically for palpitations.She indicates her palpitations worsened 2 to 3 months ago about the same time that her dose of estrogen was increased and it is unclear if there is any correlation to that. She otherwise has no complaints. * Physical exam: * Neck: No carotid bruits are heard * Lungs: Clear * Heart: Regular rate and rhythm without murmurs or extra sounds * Extremities: No edema * Recommendation is continuation of her bisoprolol. She is taking it at nighttime. I suggested she try taking it at different times possibly earlier in the day so that it would likely have more effect at nighttime which seems to be the most bothersome time for her. She will also try magnesium daily and she is given a prescription for Mag-Ox. If her symptoms change and she starts to have more difficulty when she is ambulating then I would suggest repeating testing. I also suggested she try changing her estrogen dose back to where her baseline previously was to see if this makes any difference. She will return in 1 year for follow-up or sooner if she has further problems. [facility] [employer] DO Work Phone: History of Present illness Narrative* The patient states she has been generally doing well since the last visit. Comorbid Illnesses: hypertension and hyperlipidemia. * Symptoms: denies chest pain at rest, denies exertional chest pain, denies dyspnea, denies fatigue, stable exercise intolerance, stable palpitations, denies edema, denies orthopnea, denies dizziness and denies orthostatic dizziness. * Associated symptoms: no syncope. * Her symptoms do not limit her activities. * Disease Monitoring: The patient has had a stable weight. * Medications: the patient is adherent with her medication regimen. She denies medication side effects. [facility] [employer] DO Work Phone: Hospital course Narrative No data available for this section [facility] Hospital Discharge instructions No data available for this section [facility] Progress note No data available for this section [facility] reason for referral (narrative)* Consultation (Routine) - Authorized Specialty Diagnoses / Procedures Referred By Octaviano chiang Referred To Contact Cardiology Diagnoses Essential hypertension Palpitations Procedures Follow Up In Cardiology Lacey Damico MD [address] [facility] [address] [place] [address] Lacey Damico MD [address] [facility] [address] [place] [address] Referral ID Status Reason Start Date Expiration Date V isits Requested Visits Authorized [id number] Authorized 05/10/2023 05/09/2024 1 1 [facility] Work Phone: Reason for visit Narrative* Consultation (Routine) - Authorized Specialty Diagnoses / Procedures Referred By Octaviano chiang Referred To Contact Physical Therapy Diagnoses S/P arthroscopy of right shoulder Procedures CA OFFICE/OUTPATIENT NEW HIGH MDM 60 MINUTES Conchis Bueno PA [address] [facility] [address] [place] [address] Rain Starr PT Referral ID Status Reason Start Date Expiration Date Visits Requested Visits Authorized [id number] Authorized Consult and Treat 02/14/2024 08/12/2024 99 99 [facility] Healthcare Chief Complaint IVONNE ECHEVARRIA is being seen for an annual follow-up of.* Annual f/u: 'seem to be doing ok' * IVONNE ECHEVARRIA is being seen for an annual follow-up of palpitations. * Patient presents to the office today ambulatory with steady gait. * Last evaluated in clinic Dr. Christian May 2021. * Patient denies hospitalizations or significant changes to interval medical history since last office follow-up. * She was evaluated by [facility] cardiology for second opinion regarding palpitations. Reports a 14-day Joel of Hearts with 3% PVC burden. Bisoprolol changed to Toprol 25 mg daily, increased to 37.5 mg dailyby PCP approximately 2 months ago. * She was unable to tolerate magnesium oxide due to GI complaints. She reports a home sleep study that did not indicate need for additional testing. * No caffeine, no alcohol, no [id number] medications or energy drinks. * Encouraged to get adequate sleep and techniques for stress reduction. * Patient presents to the office today where she continues to describe PVCs, usually occur at rest. Denies any dizziness or lightheadedness, no prior syncopal episodes. * From an activity standpoint she walks daily 30-60 minutes, completes housework including vacuuming and mopping, has stairs at home. She denies any type of exertional complaints, there have been no change in exercise capacity or functional tolerance. * Primary prevention: * Hypertension -optimal * Hyperlipidemia -on statin with November 2021 HDL 61, LDL 118 * Non-smoker * No diabetes * Discussed option of calcium score as an additional risk factor assessment for coronary artery disease. She is interested in testing. Otherwise, reviewed the etiology of PVCs in the setting of prior negative ischemic work-up and structurally normal heart. Secondary causes have been excluded. Low PVCburden. She has been on Paxil greater than 30 years. Family History No Family History Records FoundUnknown Family Member Name Dates Details Family history of arterioscl erotic cardiovascular disease: Mother, Father, Brother(V17.49, Z82.49) Status:Active Unknown Family Member Name Dates Details Family history of arterioscl erotic cardiovascular disease: Mother, Father, Brother(V17.49, Z82.49) Status:Active Unknown Family Member Name Dates Details Family history of arterioscl erotic cardiovascular disease: Mother, Father, Brother(V17.49, Z82.49) Status:Active Unknown Family Member Name Dates Details Family history of arterioscl erotic cardiovascular disease: Mother, Father, Brother(V17.49, Z82.49) Status:Active Unknown Family Member Name Dates Details Family history of arterioscl erotic cardiovascular disease: Mother, Father, Brother(V17.49, Z82.49) Status:Active Unknown Family Member Name Dates Details Family history of arterioscl erotic cardiovascular disease: Mother, Father, Brother(V17.49, Z82.49) Status:Active Relationship Condition Age at Onset Recorded Date/T veronica Not Specified Heart disease Unknown father Heart disease Unknown brother Malignant neoplasm of anus Unknown Malignant neoplasm of prostate Unknown brother Atrial fibrillation Unknown sister Diabetes mellitus Unknown Summary Purpose Advance Directives No Advanced Directives Records Found Advance Directive Response Recorded Date/ Time Advance Directives No May 10, 2018 1:36pm Reason for Referral Specialty Diagnoses / Procedures Referred By Octaviano t Referred To Contact Diagnoses Sleep apnea, unspecified type Procedures CONSULT TO SLEEP MEDICINE - ADULT OFFICE/OUTPATIENT NEW HIGH MDM 60-74 MINUTES Gasper Hamilton MD [address] [place] [address] Referral ID Status Reason Start Date Expiration Date Visits Requested Visits Authorized [id number] Pending Review PCP Requested Referral 11/28/2021 11/28/2022 1 1 Chief Complaint and Reason for Visit Chief Complaint High BP dizzy Additional Source Comments Source Comments (unrecognize d section and content) In the event this informatio n is protected by the Federal Confidentiality of Alcohol and Drug Abuse Patient Records regulations: The Federal rules restrict any use of the information to criminally investigate or prosecute any alcohol or drug abuse patient.[facility] the event this information is protected by the Federal Confidentiality of Alcohol and Drug Abuse Patient Records regulations: The Federal rules restrict any use of the information to criminally investigate or prosecute any alcohol or drug abuse patient.[facility] the event this information is protected by the Federal Confidentiality of Alcohol and Drug Abuse Patient Records regulations: The Federal rules restrict any use of the information to criminally investigate or prosecute any alcohol or drug abuse patient.[facility] Reason for Visit (unrecogniz ed section and content) Reason Comments Follow Up Reason Comments HSAT Check In (Adult) Reason Comments Follow-up 1y Reason Comments Annual Exam Care Teams (unrecognized sec tion and content) 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 Specialty Start Date End Date Conchis Zamora [address] [facility] [address] [place] [phone] PCP - General Family Practice 05/23/16 Gasper Hamilton MD [address] [place] [address] Primary Staff Physician Cardiology 08/12/21 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 Specialty Start Date End Date Conchis Zamora [address] [facility] [address] [place] [phone] PCP - General Family Practice 05/23/16 Gasper Hamilton MD [address] [place] [address] Primary Staff Physician Cardiology 08/12/21 Team Status: Active Member Role Status Dates Conchis Zamora DO Primary Care Provider Active Team Status: Inactive Member Role Status Dates Conchis Zamora DO Primary Care Provider Active Fozia Robert MD Emergency Provider Active 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 Specialty Start Date End Date Conchis Zamora DO [address] [facility] [address] [place] [address] PCP - General 07/09/99 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 Specialty Start Date End Date Conchis Zamora DO [address] [facility] [address] [place] [address] PCP - Devoted 07/09/22 Conchis Zamora, DO [address] [facility] [address] [place] [address] PCP - General Family Medicine 10/12/23 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 Specialty Start Date End Date Conchis Zamora, DO [address] [facility] [address] [place] [address] PCP - Devoted 07/09/22 Conchis Zamora, DO [address] [facility] [address] [place] [address] PCP - General Family Medicine 10/12/23 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 Specialty Start Date End Date Conchis Zamora, DO [address] [facility] [address] [place] [address] PCP - Devoted 07/09/22 Conchis Zamora, DO [address] [facility] [address] [place] [address] PCP - General Family Medicine 10/12/23 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 Specialty Start Date End Date Conchis Zamora, DO [address] [facility] [address] [place] [address] PCP - Devoted 07/09/22 Conchis Zamora, DO [address] [facility] [address] [place] [address] PCP - General Family Medicine 10/12/23 INFORMATION SOURCE (unrecogn ized section and content) DATE CREATED AUTHOR 10/29/2021 [facility] DATE CREATED AUTHOR AUTHOR'S ORGANIZ ATION 11/10/2021 [facility] dical Specialist DATE CREATED AUTHOR AUTHOR'S ORGANIZ ATION 05/15/2022 [facility] DATE CREATED AUTHOR AUTHOR'S ORGANIZ ATION 05/15/2022 [employer] DATE CREATED AUTHOR AUTHOR'S ORGANIZ ATION 06/05/2022 [facility] DATE CREATED AUTHOR AUTHOR'S ORGANIZ ATION 09/25/2022 [facility] DATE CREATED AUTHOR AUTHOR'S ORGANIZ ATION 01/22/2023 [facility] DATE CREATED AUTHOR AUTHOR'S ORGANIZ ATION 05/11/2023 [facility] DATE CREATED AUTHOR AUTHOR'S ORGANIZ ATION 04/19/2024 [facility] dical Specialists EPIC DATE CREATED AUTHOR AUTHOR'S ORGANIZ ATION 04/24/2024 [facility] Goals (unrecognized section and content) Goals may be documented in a n alternate section FOR RECORDS PERTAINING TO PATIENTS WHO ARE OR HAVE BEEN ENROLLED IN A CHEMICAL DEPENDENCY/SUBSTANCEABUSE PROGRAM, SOME INFORMATION MAY BE OMITTED. This clinical summary was aggregated from multiple sources. Caution should be exercised in using it in the provision of clinical care. This summary normalizes information from multiple sources, and as a consequence, information in this document may materially change the coding, format and clinical context of patient data. In addition, data may be omitted in some cases. CLINICAL DECISIONS SHOULD BE BASED ON THE PRIMARY CLINICAL RECORDS. [employer] provides no warranty or guarantee of the accuracy or completeness of information in this document.
== END 2024-04-24 19:09 | disposition home or self-care (01) ==
LOC: LAB 19:08
PROVIDERS: Visit Provider Obstetrics & Gynecology
DX: Z01.419 Encounter for gynecological examination (general) (routine) without abnormal findings (principal)
CPT/HCPCS: 88175

== ENCOUNTER 2024-05-08 11:04 | Outpatient (OUT) | payer OTHER, SELFPAY ==
--- NOTE | 2024-05-08 11:06 | US_ITS ---
The [address] [address] Patient Name: DENNIS ECHEVARRIA MRN: [id number] date: 1955 Sex: F Assigned Patient Location: [facility] Current Patient Location: Accession/Order Number: [id number] Exam Date: 05/08/2024 11:06 Report Date: 05/09/2024 13:24 At the request of: JANESSA CUELLAR Procedure: US pelvis w/ transvaginal EXAMINATION: US pelvis w/ transvaginal HISTORY: PELVIC PAIN COMPARISON: No relevant comparison available. FINDINGS: Transabdominal and transvaginal images The liver is normal in size, contour and echotexture measuring 5.8 x 2.3 x 4.2 cm. Mildly heterogeneous echotexture with no focal mass. The uterus is anteverted, anteflexed The endometrium measures 3 mm, normal The ovaries are not visualized No free fluid US/US pelvis w/ transvaginal IMPRESSION: No acute abnormality Electronically authenticated by: GALINA FRAGOSO Date: 05/09/2024 13:24
--- OUTSIDE RECORDS SUMMARY | 2024-05-08 11:19 | XMS_ITS | CCD ---
Author Organization [facility] Care Team Providers Care Software Release Manager Name Role Phone Deisy Zamoratatiana Sheikh Unavailable Unavailable Unavailable Conchis Zamora Primary Care Provider Gasper Hamilton MD Unavailable CONCHIS ZAMORA Primary Care Physician Malvin Westbrook Unavailable JEWELL Robert Attending Unavailable Jakob, JEWELL Ji Referring Unavailable Petjanelle, Dr. Conchis Mason Primary Care Un available Petznick, Dr. Conchis Mason Primary Care Un available Lyster, Dr. Julio Lopez Attending Unavail able Lyster, Dr. Julio Lopez Referring Unavail able Robert, Ms. Ji Attending Unavailable Jakob, Ms. Ji Referring Unavailable Petznarlyn, Dr. Conchis Mason Primary Care Un available PETZNARLYN, CONCHIS Admitting Unavailable PETZNICK, CONCHIS Attending Unavailable PETZNICK, [facility] Primary Care Unavailable PETZNICK, CONCHIS Consulting Unavailable FOUZIA, DR GALINA Garrido Admitting Unavailable FOUZIA, DR GALINA Garrido Attending Unavailable PETZNICK, [facility] Primary Care Unavailable PETZNICK, [facility] Primary Care Unavailable HAY ., DR MALIK Admitting Unavailable HAY ., DR MALIK Attending Unavailable ZIEBER, DR BRIAN Haynes Consulting Unavailable GUSTAVO ., DR MALIK Consulting Unavailable AZIZA ., DR RIDDLE Admitting Unavailable AZIZA ., DR RIDDLE Attending Unavailable PETZNICK, [facility] Primary Care Unavailable AZIZA ., DR RIDDLE Consulting Unavailable AZIZA ., DR RIDDLE Admitting Unavailable AZIZA ., DR RIDDLE Attending Unavailable PETZNICK, [facility] Primary Care Unavailable FOUZIA, DR GALINA Garrido Consulting Unavailable AZIZA ., DR RIDDLE Consulting Unavailable ADEBPEDRO, DR BRIAN Haynes Consulting Unavailable Filemon Meléndez Unavailable Petznick, DO Conchis Primary Care Provider [phone] MD Fozia Robert Emergency Provider Conchis Zamora Primary Care Unavailable Fozia Robert Admitting Unavailable Fozia Robert Attending Unavailable Petjanelle DO, Conchistatiana Mason Primary Care Provid er LACEY DAMICO Attending Unavailable CONCHIS ZAMORA Primary Care Unavai lable Timbo DO, Conchis Sheikh Unavailable Petjanelle DO, Conchis C Primary Care Provider [phone] Morgan TILLMAN Attending Unavailable Morgan TILLMAN Attending Unavailable Ludmila Ruff Attending Unavailable CONCHIS ZAMORA Attending Unavailable CONCHIS ZAMORA Referring Unavailable AGUILA MERCADO Attending Unavailable AGUILA MERCADO Referring Unavailable AGUILA MERCADO Attending Unavailable NATLAIA YEAGER Attending Unavailable CONCHIS ZAMORA Referring Unavailable AGUILA MERCADO Referring Unavailable JR. MCCLELLAN GEORGE C Attending Unavaila ble CONCHIS BUENO Attending Unavailable BUENO, CONCHIS Olmedo Attending Unavailable RAIN STARR Attending Unavailable BUENO, CONCHIS Olmedo Referring Unavailable SHARA DUMONT Attending Unavailable BUENO, CONCHIS Olmedo Referring Unavailable ORLANDOKRISHAN Attending Unavailable BUENO, CONCHIS J Referring Unavailable STARRRAIN Attending Unavailable BUENO, CONCHIS J Referring Unavailable ORLANDOKRISHAN Attending Unavailable BUENO, CONCHIS J Referring Unavailable ORLANDOKRISHAN Attending Unavailable BUENO, CONCHIS J Referring Unavailable ORLANDO, KRISHAN Attending Unavailable BUENO, CONCHIS J Referring Unavailable RAIN STARR Attending Unavailable BUENO, CONCHIS J Referring Unavailable JR. MCCLELLAN GEORGE C Attending Unavaila ble KRISHAN PERRY Attending Unavailable BUENO, CONCHIS J Referring Unavailable ORLANDO, KRISHAN Attending Unavailable BUENO, CONCHIS J Referring Unavailable RAIN STARR Attending Unavailable BUENO, CONCHIS J Referring Unavailable ORLANDO, KRISHAN Attending Unavailable BUENO, CONCHIS J Referring Unavailable DEVON HUSTON Attending Unavailable BUENO, CONCHIS J Referring Unavailable ORLANDO, KRISHAN Attending Unavailable BUENO, CONCHIS J Referring Unavailable ORLANDO, KRISHAN Attending Unavailable BUENO, CONCHIS J Referring Unavailable ORLANDO, KRISHAN Attending Unavailable BUENO, CONCHIS J Referring Unavailable STARRRAIN Attending Unavailable BUENO, CONCHIS J Referring Unavailable KRISHAN PERRY Attending Unavailable CONCHIS BUENO Referring Unavailable CONCHIS ZAMORA Attending Unavailable KRISHAN PERRY Attending Unavailable CONCHIS BUENO Referring Unavailable JR. MCCLELLAN GEORGE C Attending UnavailTYLER Strickland Attending Unavailable KRISHAN PERRY Attending Unavailable CONCHIS BUENO Referring Unavailable KRISHAN PERRY Attending Unavailable CONCHIS BUENO Referring Unavailable RAIN STARR Attending Unavailable CONCHIS BUENO Referring Unavailable KRISHAN PERRY Attending Unavailable CONCHIS BUENO Referring Unavailable Allergies Allergy Classification Reported Allergen(s) Allergy Type Date of Onset Reaction(s) Facility (19 sources) Clarithromycin; Translations: [Biaxin] Drug Allergy 7 Intolerance, Unknown (3 sources) Dog Allergy to substance 2 Itching (20 sources) Glycerin; Translations: [saliva substitutes] Drug Allergy 3 Diarrhea (finding), Diarrhea [facility] (20 sources) Clarithromycin; Translations: [clarithromycin] Drug Allergy 7 Unknown [facility] Medications Current Medications Medication Drug Class(es) Dates Sig (Normalized) Sig (Original) [id number] 200 actuat albuterol 0.09 mg/actuat metered dose inhaler (20 sources) beta2-Adrenergic Agonist Start: 06-08-2022 albuterol HFA [...] once daily. biotin 1 mg oral tablet (20 sources) biotin 1000 MCG tablet Take by mouth Daily. Active Biotin 1 mg tab Take by mouth once daily. 0 Active Comment on above: Take by mouth once d aily. calcium carbonate 1500 mg oral tablet (20 sources) take 1 tablet by mouth in [...] sources) Co Q 10 Active Co Q-10 (7 sources) Start: 8 take 200 mg by mouth once daily Co Q-10 200 mg, Oral, Daily, Refills(s) 0, Prophylaxis Start Date: 09/18/17 Status: Ordered estradiol 0.1 mg/ml vaginal cream (20 sources) Estrogen Start: 3 Estrace 0.1 mg/g Cream 1 gm, Vaginal, MonFri, 42.5 gm, Refill(s) 11, apply 1 gram 2x a week, [facility]/pharmacy #[id number], 157, cm, 01/15/23 9:07:00 EDT, Height/Length [...] week, # 42.5 gm, Refills(s) 7, Pharmacy: [facility] ([place]), 157, cm, 03/28/21 10:13:00 EDT, Height/Length Dosing, 67, kg, 03/28/21 10:13:00 EDT, Weight Dosing Start Date: 03/28/21 Status: Ordered estradiol (Estra ce) 0.01 % (0.1 mg/gram) vaginal cream Insert 0.25 Applicatorfuls (1 g) into the vagina 2 times a week. 0 Active Comment on above: Use 1 g vaginally tw o times a week. estradiol 0.1 mg/g vaginal cream (6 sources) Start: 05-02-2022 estradiol 0.1 mg/g vaginal cream 1 gram, Vaginal, MonFri, apply 1gram 2x a week, # 42.5 gm, Refills(s) 7, Pharmacy: [facility]/pharmacy #[id number], 157, cm, 01/20/22 8:35:00 EDT, Height/Length Dosing, 67, kg, 01/20/22 8:35:00 EDT, Weight Dosing Start Date: 05/02/22 Status: Ordered Start: 03-28-2021 estradiol 0.1 mg/g vaginal cream 1 gram, Vaginal, MonFri, apply 1gram 2x a week, # 42.5 gm, Refills(s) 7, Pharmacy: [facility]), 157, cm, 03/28/21 10:13:00 EDT, Height/Length Dosing, 67, kg, 03/28/21 10:13:00 EDT, Weight Dosing Start Date: 03/28/21 Status: Ordered hydrocortisone acetate 25 mg rectal suppository (1 source) Corticosteroid Start: 12-09-2020 take 25 mg rectal route at bedtime hydrocortisone 25 mg rectal suppository 25 mg = 1 supp, Rectal, Bedtime, # 36 supp, Refills(s) 1, Pharmacy: [facility]), 157.5, cm, 09/01/20 14:14:00 EST, Height/Length Dosing, 67.2, kg, 09/01/20 14:14:00 EST, Weight Dosing Start Date: 12/09/20 Status: Ordered hydrocortisone 25 mg rectal suppository (3 sources) Start: 12-09-2020 take 25 mg rectal route at bedtime hydrocortisone 25 mg rectal suppository 25 mg = 1 supp, Rectal, Bedtime, # 36 supp, Refills(s) 1, Pharmacy: [facility] ([place]), 157.5, cm, 09/01/20 14:14:00 EST, Height/Length Dosing, 67.2, kg, 09/01/20 14:14:00 EST, Weight Dosing Start Date: 12/09/20 Status: Ordered ibandronic acid 150 mg oral tablet (20 sources) Bisphosphonate Start: 02-14-2024 take 1 tablet by mouth every month ibandronate (Boniva) 150 MG tablet Indications: Age-related osteoporosis without current pathological fracture (CMS/HCC) TAKE 1 TABLET BY MOUTH ONCE A MONTH WITH PLAIN WATER 60 MINUTES BEFORE THE FIRST FOOD, BEVERAGE OR MEDICINE OF THE DAY. 12 tablet 02/14/2024 Active latanoprost 0.05 mg/ml ophthalmic solution (20 sources) Prostaglandin Analog Start: 11-14-2022 take 1 drop(s) into the eye(s) at bedtime latanoprost (Xalatan) 0.005 % ophthalmic solution Administer 1 drop into both eyes at bedtime. 11/14/2022 Active LORazepam 1 mg oral tablet (20 sources) Benzodiazepine Start: 10-23-2023 LORazepam (Ativan) 1 MG tablet Indications: Anxiety Take 1 tablet (1 mg) by mouth See administration instructions for 10 days 1 by mouth 1 hour prior to MRI 1 tablet 10/23/2023 Active meclizine hydrochloride 25 mg oral tablet (4 sources) Antiemetic Start: 01-15-2023 meclizine 25 mg [...] once daily. montelukast 10 mg oral tablet (20 sources) Leukotriene Receptor Antagonist Start: take 1 tablet by mouth once daily montelukast (Singulair) 10 MG tablet Indications: Wheezing TAKE 1 TABLET BY MOUTH EVERY DAY 90 tablet 1 06/25/2023 Active Multiple Vitamins Tab (7 sources) Start: take 1 tablet by mouth once daily Multiple Vitamins Tab 1 tab(s), Oral, Daily, Refill(s) 0, Prophylaxis Start Date: 09/18/17 Status: Ordered Wsstgbwr-Vsm-Wvzms Acid-Vit K (Multi For Her 50 Plus) 400-80 mcg Capsule (1 source) Start: take 50-400 capsules by mouth once daily Xckwkbgd-Asy-Vkyus Acid-Vit K (Multi For Her 50 Plus) [...] oral capsule (1 source) Nitrofuran Antibacterial Start: End: take 1 capsule by mouth twice daily Macrobid 100 mg Cap 100 mg = 1 cap(s), Oral, BID, X 5 day(s), # 10 cap(s), Refills(s) 0, Pharmacy: [facility]/pharmacy #[id number], 157, cm, 01/20/22 8:35:00 EDT, Height/Length Dosing, 67, kg, 01/20/22 8:35:00 EDT, Weight Dosing Start Date: 09/11/22 Stop Date: 09/16/22 Status: Ordered ondansetron 4 mg disintegrating oral tablet (4 sources) Serotonin-3 Receptor Antagonist Start: 023 ondansetron 4 mg Dis Tab Refills(s) 0 [...] Daily, # 10 tab(s), Refills(s) 0, [id number] 157.5, cm, 02/25/20 15:53:00 EDT, Height/Length Dosing, 65, kg, 02/25/20 15:53:00 EDT, Weight Dosing Start Date: 05/12/20 Status: Ordered Start: 09-17-2018 take 1 tablet by quang once daily pantoprazole 40 mg Oral EC Tab 40 mg = 1 tab(s), Oral, Daily, # 10 tab(s), Refills(s) 0, Pharmacy: [facility]/pharmacy #[id number], 157.5, cm, 02/25/20 15:53:00 EDT, Height/Length [...] by mouth once daily. polyethylene glycol 3350 90734 mg powder for oral solution (20 sources) Osmotic Laxative Start: 1 Polyethylene Glycol 3350 17 GM/SCOOP as directed [...] 100 mg oral capsule (10 sources) Start: Coenzyme Q10 (Co Q-10) 100 mg Capsule Active 200 MG PO Daily September 17, 2018 12:00am take 1 capsule by mouth once farida ly coenzyme Q-10 200 mg capsule Take 1 capsule (200 mg) by mouth once daily. 0 Active ubidecarenone 100 mg / vitamin e 5 unt oral capsule (20 sources) coenzyme Q-10 10 0 MG capsule [...] on above: Take 1 tablet by quang once daily. Calcium 600 mg D3 800 IU estrogens, conjugated (prison) 0.625 mg/ml vaginal cream (1 source) Estrogen [...] water, # 160 cap(s), Refills(s) 4, Pharmacy: [facility]/pharmacy #[id number], 157.5, cm, 09/01/20 14:14:00 EST, Height/Length [...] Date Documented Da te Episodic/Chronic Abdominal pain (20 sources) Left upper quadrant pain; Translations: [Left upper quadrant pain] Onset: 01-10-2023 Resolved: 07-11-2023 09-01-2020 Episodic Anxiety disorders (20 sources) Anxiety; Translations: [Anxiety disorder, unspecified] Onset: 03-03-2020 01-10-2023 Chronic Asthma (7 sources) Acute asthma 02-20-2019 Chronic Disorders of [...] urine] Onset: 01-20-2022 Resolved: 07-11-2023 05-26-2019 Chronic Heart valve disorders (20 sources) Mitral valve prolapse; Translations: [Nonrheumatic mitral (valve) prolapse] Onset: 01-10-2023 02-20-2019 Chronic Osteoporosis (20 sources) Senile osteoporosis; Translations: [Age-related osteoporosis without current pathological fracture] Onset: 01-10-2023 01-10-2023 Chronic Other diseases of bladder and urethra (7 sources) Urethral stricture 03-28-2021 Episodic Other eye disorders (2 sources) Disorder of eyelid; Translations: [Other specified disorders of eyelid] 04-14-2024 Episodic Other gastrointestinal disorders (5 sources) Constipation; Translations: [Constipation, unspecified] Episodic Other gastrointestinal disorders (3 sources) Constipation, unspecified Onset: 08-16-2021 Resolved: 08-16-2021 Episodic Other non-traumatic joint disorders (4 sources) Derangement of right shoulder joint; Translations: [Other specific joint derangements of right shoulder, not elsewhere classified] 04-23-2024 Chronic Other non-traumatic joint disorders (7 sources) Pain in right shoulder; Translations: [Pain in joint, shoulder region] 04-10-2024 Episodic Other nutritional; endocrine; and metabolic disorders (2 sources) Body mass index (BMI) 26.0-26.9, adult; Translations: [Body mass index (BMI) 26.0-26.9, adult] Onset: 05-09-2023 Episodic Other screening for suspected conditions (not mental disorders or infectious disease) (20 sources) Encounter for screening mammogram for malignant neoplasm of breast; Translations: [Encounter for screening for malignant neoplasm of cervix] Onset: 04-10-2022 Episodic Residual codes; unclassified (1 source) Sleep apnea; Translations: [Sleep apnea, unspecified] Chronic Residual codes; unclassified (11 sources) History of arthroscopic procedure on shoulder; Translations: [Other specified postprocedural states] 04-10-2024 Episodic Residual codes; unclassified (13 sources) Postmenopausal state; Translations: [Asymptomatic menopausal state] Onset: 04-24-2024 04-24-2024 Episodic Screening and history of mental health and substance abuse codes (7 sources) Tobacco use and exposure - finding 05-26-2019 Chronic Unclassified (3 sources) CONTACT W/AND (SUSP) EXPOS COVID-19; Translations: [CONTACT W/AND (SUSP) EXPOS COVID-19] Onset: 08-07-2022 Unclassified (1 source) COUGH, UNSPECIFIED; Translations: [COUGH, UNSPECIFIED] Onset: 08-07-2022 Urinary tract infections (20 sources) Chronic cystitis; Translations: [Other chronic cystitis without hematuria] Onset: 01-20-2022 05-26-2019 Chronic Urinary tract infections (3 sources) Postinfective urethral stricture of female; Translations: [Postinfective urethral stricture, not elsewhere classified, female] Onset: 01-20-2022 Episodic Past or Other Problems Problem Classification Problem Date Documented Da te Episodic/Chronic Cardiac dysrhythmias (20 sources) Palpitations; Translations: [Palpitations] Onset: 05-09-2023 Resolved: 07-11-2023 Episodic Conditions associated with dizziness or vertigo (20 sources) Vertigo; Translations: [Dizziness and giddiness] Onset: 07-02-2023 Resolved: 07-11-2023 01-07-2023 Episodic Genitourinary symptoms and ill-defined conditions (20 sources) Increased frequency of urination; Translations: [Microscopic hematuria] Onset: 11-29-2021 Resolved: 07-11-2023 05-26-2019 Episodic Hemorrhoids (20 sources) Hemorrhoids; Translations: [Unspecified hemorrhoids] Onset: 01-10-2023 02-20-2019 Episodic Immunizations and screening for infectious disease (1 source) Encounter for screening for human papillomavirus (HPV); Translations: [ENC SCREENING HUMAN PAPILLOMAVIRUS] Onset: 04-12-2022 Episodic Nutritional deficiencies (20 sources) Vitamin D deficiency; Translations: [Vitamin D deficiency, unspecified] Onset: 10-07-2016 Resolved: 07-11-2023 10-07-2016 Chronic Osteoarthritis (20 sources) Arthritis of right hip; Translations: [Unilateral primary osteoarthritis, right hip] Onset: 04-19-2022 Resolved: 07-11-2023 07-11-2023 Chronic Other aftercare (1 source) care home (current) use of aspirin; Translations: [FRUIT CULLER CURRENT USE OF ASPIRIN] Onset: 04-17-2022 Episodic Other aftercare (1 source) 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; Translations: [OTH NURSING HOME CURRENT DRUG THERAPY] Onset: 04-17-2022 Episodic Other bone disease and musculoskeletal deformities (1 source) Other specified disorders of bone density and structure, right thigh; Translations: [OTH D/O BONE DEN STRUCT RT THIGH] Onset: 04-20-2022 Episodic Other bone disease and musculoskeletal deformities (20 sources) Bone cyst of left ankle; Translations: [Other cyst of bone, left ankle and foot] Onset: 07-27-2023 07-27-2023 Episodic Other circulatory disease (4 sources) Hemorrhage, not elsewhere classified; Translations: [HEMORRHAGE NOT ELSEWHERE CLASSIFIED] Onset: 04-15-2022 Episodic Other connective tissue disease (20 sources) Dupuytren's contracture; Translations: [Palmar fascial fibromatosis [Dupuytren]] Onset: 04-01-2018 01-10-2023 Episodic Other gastrointestinal disorders (20 sources) Dysphagia; Translations: [Dysphagia, unspecified] Onset: 01-10-2023 04-07-2019 Episodic Other gastrointestinal disorders (20 sources) Heartburn; Translations: [Heartburn] Onset: 01-10-2023 Resolved: 07-11-2023 04-07-2019 Episodic Other infections; including parasitic (20 sources) Urethral stricture due to infection; Translations: [Urethral disorders in diseases classified elsewhere] Onset: 01-10-2023 05-26-2019 Episodic Other nervous system disorders (20 sources) Impairment of balance; Translations: [Other abnormalities of gait and mobility] Onset: 01-10-2023 Resolved: 07-11-2023 07-11-2023 Episodic Other nutritional; endocrine; and metabolic disorders (20 sources) Overweight in adulthood with body mass index of 25 or more but less than 30; Translations: [Overweight] Onset: 05-09-2023 Resolved: 07-11-2023 05-10-2023 Episodic Residual codes; unclassified (1 source) Asymptomatic [...] of mental health and substance abuse codes (20 sources) Ex-smoker; Translations: [Personal history of tobacco use] Onset: 01-10-2023 Resolved: 07-11-2023 07-11-2023 Episodic Unclassified (1 source) CONTACT W/AND (SUSP) EXPOS COVID-19; Translations: [CONTACT W/AND (SUSP) EXPOS COVID-19] Onset: 08-04-2022 Unclassified (1 source) Onset: 05-10-2023 05-10-2023 Results Test Name Value Interpretation Reference Range Facility IGP,APTIMA HPV,AGE GDLNon AGE GDLN ACOG TESTING Note . [facility] Comment on above: TESTS RESULT FLAG UN ITS REF RANGE LAB Clinician Provided Cytology Information Source.............Cervix;Endocervix No. of containers..01 ThinPrep Vial Age Patriciao ACOG Charleen... Note 01 <21 or >65 or no age provided FLAG LEGEND: L-Low Normal,H-High Normal,LL-Alert Low,HH-Alert High <-Panic Low,>-Panic High,A-Abnormal,AA-Critical Abnormal Performed at: 01 =[facility] [address] Lori Joaquin MD, PAP IG (IMAGE GUIDED) Note . [facility] Comment on above: TESTS RESULT FLAG UN ITS REF RANGE LAB DIAGNOSIS: 02 NEGATIVE FOR INTRAEPITHELIAL LESION OR MALIGNANCY. THIS SPECIMEN WAS RESCREENED PART OF OUR FINE ARTS CHAIR PROGRAM. Specimen adequacy: 02 Satisfactory for evaluation. Endocervical and/or squamous metaplastic cells (endocervical component) are present. Performed by: 02 Leola Powell, Information Technology Security Manager (ASC) QC reviewed by: 02 Ana Maria Schaffer, Information Technology Security Manager (ASC) . 02 Note: Note 02 The Pap smear is a screening test designed to aid in the detection of premalignant and malignant conditions of the uterine cervix. It is not a diagnostic procedure and should not be used as the sole means of detecting cervical cancer. Both false-positive and false-negative reports do occur. Test Methodology: Note 02 This liquid based ThinPrep(R) pap test was screened with the use of an image guided system. FLAG LEGEND: L-Low Normal,H-High Normal,LL-Alert Low,HH-Alert High <-Panic Low,>-Panic High,A-Abnormal,AA-Critical Abnormal Performed at: [address] [address] Lori Joaquin MD, Performed at: = - [facility] [id number] Manager Talent Acquisition: Lori Joaquin MD, Phone: [phone] Performed at: [address] [id number] Manager Talent Acquisition: Lori Joaquin MD, Phone: [phone] [facility] Urinalysis macro (dipstick) panel (U)on 04-24-2024 Bilirubin, UA Negative Negative - 4(70) +++ mg/dL [facility] Blood, UA Negative Negative - 50 Zheng/mcL [facility] Clarity, UA Clear [facility] Color, UA Yellow [facility] Glucose, UA Negative Negative - 1999(110) ++++ mg/dL [facility] Interpretation and review of laboratory results Normal [facility] Ketones, UA Negative Negative - 160(16) ++++ mg/dL [facility] Leukocytes, UA Negative Negative - 500+++ Ilene/mcL [facility] Nitrite, UA Negative Negative - Positive [facility] pH, UA 6.5 5 - 9 [facility] Protein, UA Negative Negative - 1999(20) ++++ mg/dL [facility] Spec Grav, UA 1.02 1 - 1.03 [facility] Urobilinogen, UA 1.0 0.2 - 12 mg/dL [facility] Ambulatory Visit Summaryon 1 - Ambulatory Visit Summary Ambulatory Visit Summary IVONNE ECHEVARRIA :1955 Visit Date:04/22/2024 Ambulatory Visit Instructions Your Diagnosis Urethral stricture Chronic cystitis Feeling of incomplete bladder emptying Your Care Team Attending Physician - EDGAR Ruff APRN, Ludmila Abreu Primary Care Physician - CONCHIS ZAMORA DO [...] Morgan TILLMAN MD Where: [facility] [address] [place] [address]- You Need to Schedule the Following Appointments Follow Up with Morgan TILLMAN MD, URL When: Comments: IO [facility]D Where: [address] [place] [address]- Medications What How Much When Instructions Unchanged [...] this co (more content not included)... Normal [facility] Urology Office/Clinic Noteon 04-22-2024 Urology Office/Clinic Note [...] with voice recognition artificial intelligence software, specifically [employer], [employer] and or [employer]. Substitutions may have occurred due to the [...] Urnls Dip Stick Auto w/o Microscopy POC 24248 2. Chronic cystitis (N30.20: Other chronic cystitis [...] Urnls Dip Stick Auto w/o Microscopy POC 54487 3. Feeling of incomplete bladder emptying (R39.14: Feeling of incomplete bladder emptying) Occasional PVR today 0 -cont to monitor Ordered: 05414 Measure Post Void residual urine and/or bladder capacity by US- non-imaging Follow-up With When Contact Information PRIMO GRUBER, Morgan Haynes, [address] [address]- Additional Instructions: IO [facility]D Patient Education Urethral [...] Recorded SARS-CoV- (more content not included)... Normal [facility] Comment on above: Result Comment: Elec tronically [...] Comment: MRI R T shoulder w/o at [facility]. Orbits if needed. US LOWER EXTREMITY NON-VASC [...] BY: Alexy Saldana MD Normal Not Available Cytology Cervical or vaginal smear or scraping studyOrdered By: Chantelle Carbone on 04-11-2023 [facility] Alanine aminotransferase [En zymatic activity/volume] in Serum or PlasmaOrdered By: Fozia Robert on 01-07-2023 ALT [Catalytic activity/Vol] 15 U/L 7-52 [facility] Albumin [Mass/volume] in Ser um or Plasma by Bromocresol green (BCG) dye binding methoOrdered By: Fozia Robert on 01-07-2023 Albumin BCG dye [Mass/Vol] 4.4 g/dL 3.5-5.7 [facility] Alkaline phosphatase [Enzyma tic activity/volume] in Serum or PlasmaOrdered By: Fozia Robert on 01-07-2023 ALP [Catalytic activity/Vol] 51 U/L 34-104 [facility] Aspartate aminotransferase [ Enzymatic activity/volume] in Serum or PlasmaOrdered By: Fozia Robert on 01-07-2023 AST [Catalytic activity/Vol] 22 U/L 13-39 [facility] Basophils Auto (Bld) [#/Vol] Ordered By: Fozia Robert on 01-07-2023 Basophils (Bld) [#/Vol] 0.1 10*3/uL 0.0-0.2 [facility] Basophils/100 WBC Auto (Bld) Ordered By: Fozia Robert on 01-07-2023 Basophils/100 WBC (Bld) 1.5 % . [facility] Bilirubin.total [Mass/volume ] in Serum or PlasmaOrdered By: Fozia Robert on 01-07-2023 Bilirubin [Mass/Vol] 0.5 mg/dL 0.3-1.[address] [facility] [address] head/brain wo conon 01-07 CT head/brain wo con [facility] [address] CT Scan Report Signed Patient: Ivonne Echevarria MR#: [id number] : 1955 Acct:[id number] Age/Sex: 67 / F ADM Date: 01/07/23 Loc: ER Room: Type: [facility] ER Attending Dr: Copies to: Fozia Robert MD Ordering Provider: Fozia Roebrt MD Date of Service: 01/07/23 CT/CT head/brain [...] Devendra Jones M.D.01/07/2023 1:28 PM Dictation Location: [place] [address] Transcribed By: KARTHIK 01/07/23 1328 Dictated By: Devendra Jones DO 01/07/23 1325 Signed By: 01/07/23 1328 Normal [facility] Calcium [Mass/volume] in Ser um or PlasmaOrdered By: Fozia Robert on 01-07-2023 Calcium [Mass/Vol] 9.4 mg/dL 8.6-10.3 [facility] Carbon dioxide, total [Moles /volume] in Serum or PlasmaOrdered By: Fozia Robert on 01-07-2023 CO2 [Moles/Vol] 31.4 mmol/L 21.0-31.0 [facility] Chloride [Moles/volume] in [place] or PlasmaOrdered By: Fozia Robert on 01-07-2023 Chloride [Moles/Vol] 104 mmol/L 98-107 [facility] Complete Blood Count Auto Di ffon 01-07-2023 Basophils (Bld) [#/Vol] 0.1 10*3/uL Normal 0.0-0.2 [facility] Comment on above: Result Comment: PERF ORMED BY: [place] [address] PATHOLOGIST PAINTER AYANNA MARADIAGA M.D. Performed By: #### C BC, HS TROP, CMP, CK #### [address] Basophils/100 WBC (Bld) 1.5 % Normal . [facility] Comment on above: Performed By: #### C BC, HS TROP, CMP, CK #### [facility] [address] [place] [address] [place] Eosinophils (Bld) [#/Vol] 0.3 10*3/uL Normal 0.0-0.45 [facility] Comment on above: Performed By: #### C BC, HS TROP, CMP, CK #### [place] [address] [place] Eosinophils/100 WBC (Bld) 6.3 % Normal . [facility] Comment on above: Performed By: #### C BC, HS TROP, CMP, CK #### [facility] [address] [place] [address] Erythrocyte distribution width (RBC) [Ratio] 13.5 % Normal 11.9-15.3 [facility] Comment on above: Performed By: #### C BC, HS TROP, CMP, CK #### [address] Hematocrit (Bld) [Volume fraction] 41.1 % Normal 34.0-46.4 [facility] Comment on above: Performed By: #### C BC, HS TROP, CMP, CK #### [address] Hemoglobin (Bld) [Mass/Vol] 14.3 g/dL Normal 11.8-15.4 [facility] Comment on above: Performed By: #### C BC, HS TROP, CMP, CK #### [address] Lymphocytes (Bld) [#/Vol] 1.4 10*3/uL Normal 1.00-4.8 [facility] Comment on above: Performed By: #### C BC, HS TROP, CMP, CK #### [address] Lymphocytes/100 WBC (Bld) 26.9 % Normal . [facility] Comment on above: Performed By: #### C BC, HS TROP, CMP, CK #### [address] MCH (RBC) [Entitic mass] 30.1 pg Normal 24.7-34.3 [facility] Comment on above: Performed By: #### C BC, HS TROP, CMP, CK #### [address] MCV (RBC) [Entitic vol] 86.8 fL Normal 80-100 [facility] Comment on above: Performed By: #### C BC, HS TROP, CMP, CK #### [address] Mean Corpuscular HGB Conc 34.7 g/dL Normal 32.0-35.0 [facility] Comment on above: Performed By: #### C BC, HS TROP, CMP, CK #### [facility] [address] Monocytes (Bld) [#/Vol] 0.4 10*3/uL Normal 0.0-0.8 [facility] Comment on above: Performed By: #### C BC, HS TROP, CMP, CK #### [facility] [address] Monocytes/100 WBC (Bld) 15.51 % Normal 0.00-20.00 [facility] Comment on above: Performed By: #### C BC, HS TROP, CMP, CK #### [address] Monocytes/100 WBC (Bld) 8.6 % Normal . [facility] Comment on above: Performed By: #### C BC, HS TROP, CMP, CK #### [address] Neutrophils (Bld) [#/Vol] 2.9 10*3/uL Normal 1.8-7.7 [facility] Comment on above: Performed By: #### C BC, HS TROP, CMP, CK #### [address] Neutrophils/100 WBC (Bld) 56.7 % Normal . [facility] Comment on above: Performed By: #### C BC, HS TROP, CMP, CK #### [facility] [address] [place] [address] NRBC% 0.1 /100{WBC} Normal 0-0.5 [facility] Comment on above: Performed By: #### C BC, HS TROP, CMP, CK #### [facility] [address] [place] [address] Platelet mean volume (Bld) [Entitic vol] 6.9 fL Normal 6.3-10.7 [facility] Comment on above: Performed By: #### C BC, HS TROP, CMP, CK #### [place] [address] [place] Platelets (Bld) [#/Vol] 325 10*3/uL Normal 150-450 [facility] Comment on above: Performed By: #### C BC, HS TROP, CMP, CK #### [facility] [address] RBC (Bld) [#/Vol] 4.74 10*6/uL Normal 3.60-5.00 [facility] Comment on above: Performed By: #### C BC, HS TROP, CMP, CK #### [facility] [address] WBC (Bld) [#/Vol] 5.1 10*3/uL Normal 3.8-11.6 [facility] Comment on above: Performed By: #### C BC, HS TROP, CMP, CK #### [address] Comprehensive Metabolic Pane shalom 01-07-2023 Albumin [Mass/Vol] 4.4 g/dL Normal 3.5-5.7 [facility] Comment on above: Performed By: #### C BC, HS TROP, CMP, CK #### [address] Albumin/Globulin [Mass ratio] 1.6 {ratio} Normal [facility] Comment on above: Performed By: #### C BC, HS TROP, CMP, CK #### [address] ALP [Catalytic activity/Vol] 51 U/L Normal 34-104 [facility] Comment on above: Performed By: #### C BC, HS TROP, CMP, CK #### [facility] [address] [place] [address] ALT [Catalytic activity/Vol] 15 U/L Normal 7-52 [facility] Comment on above: Performed By: #### C BC, HS TROP, CMP, CK #### [address] Anion gap [Moles/Vol] 8.8 mmol/L Normal 6.0-15.0 [facility] Comment on above: Performed By: #### C BC, HS TROP, CMP, CK #### [facility] [address] AST [Catalytic activity/Vol] 22 U/L Normal 13-39 [facility] Comment on above: Performed By: #### C BC, HS TROP, CMP, CK #### [facility] [address] Bilirubin [Mass/Vol] 0.5 mg/dL Normal 0.3-1.0 [facility] Comment on above: Performed By: #### C BC, HS TROP, CMP, CK #### [facility] [address] Calcium [Mass/Vol] 9.4 mg/dL Normal 8.6-10.3 [facility] Comment on above: Performed By: #### C BC, HS TROP, CMP, CK #### [facility] [address] Chloride [Moles/Vol] 104 mmol/L Normal 98-107 [facility] Comment on above: Performed By: #### C BC, HS TROP, CMP, CK #### [address] CO2 [Moles/Vol] 31.4 mmol/L High 21.0-31.0 [facility] Comment on above: Performed By: #### C BC, HS TROP, CMP, CK #### [address] Creatinine [Mass/Vol] 0.84 mg/dL Normal 0.60-1.20 [facility] Comment on above: Performed By: #### C BC, HS TROP, CMP, CK #### [address] Creatinine Clr Calc Pharmacy 59.57 Normal [facility] Comment on above: Result Comment: PERF ORMED BY: [place] [address] PATHOLOGIST PAINTER AYANNA MARADIAGA M.D. Performed By: #### C BC, HS TROP, CMP, CK #### [facility] [address] [place] [address] [place] GFR/1.73 sq M.predicted MDRD (S/P/Bld) [Vol rate/Area] mL/min/{1.73_m2} [facility] Comment on above: Performed By: #### C BC, HS TROP, CMP, CK #### [facility] [address] Globulin (S) [Mass/Vol] 2.8 g/dL Normal [facility] Comment on above: Performed By: #### C BC, HS TROP, CMP, CK #### [facility] [address] Glucose [Mass/Vol] 91 mg/dL Normal 70-100 [facility] Comment on above: Result Comment: [facility] Glucose Reference Range is dependent on time and content of last meal. Glucose of more than 200 mg/dL in a nonstressed, ambulatory subject supports the diagnosis of Diabetes Mellitus. ADA recommended reference range Performed By: #### C BC, HS TROP, CMP, CK #### [facility] [address] Potassium [Moles/Vol] 4.2 mmol/L Normal 3.5-5.1 [facility] Comment on above: Performed By: #### C BC, HS TROP, CMP, CK #### [facility] [address] Protein [Mass/Vol] 7.2 g/dL Normal 6.4-8.9 [facility] Comment on above: Performed By: #### C BC, HS TROP, CMP, CK #### [facility] [address] Sodium [Moles/Vol] 140 mmol/L Normal 136-145 [facility] Comment on above: Performed By: #### C BC, HS TROP, CMP, CK #### [facility] [address] Urea nitrogen [Mass/Vol] 14 mg/dL Normal 7-25 [facility] Comment on above: Performed By: #### C BC, HS TROP, CMP, CK #### [facility] [address] [place] [address] [place] Creatine Kinaseon 01-07-2023 CK [Catalytic activity/Vol] 131 U/L Normal [facility] Comment on above: Performed By: #### C BC, HS TROP, CMP, CK #### [facility] [address] [place] [id number] [facility] Creatine kinase [Enzymatic a ctivity/volume] in Serum or PlasmaOrdered By: Fozia Robert on 01-07-2023 CK [Catalytic activity/Vol] 131 U/L [facility] Creatinine [Mass/volume] in Serum or PlasmaOrdered By: Fozia Robert on 01-07-2023 Creatinine [Mass/Vol] 0.84 mg/dL 0.60-1.20 [facility] ECG 12 lead ECGon 01-07-2023 ECG 12 lead ECG [facility] [place] [address] [place] [address] Electrocardiograph Report Signed Patient: Ivonne Echevarria MR#: [id number] : 1955 Acct:[id number] Age/Sex: 67 / F ADM Date: 01/07/23 Loc: ER Room: Type: [facility] ER Attending Dr: Ordering Provider: Fozia [...] By Fozia Robert MD 01/07/23 1554 Normal [facility] Eosinophils Auto (Bld) [#/Vo l]Ordered By: Fozia Robert on 01-07-2023 Eosinophils (Bld) [#/Vol] 0.3 10*3/uL 0.0-0.45 [facility] Eosinophils/100 WBC Auto (Bl d)Ordered By: Fozia Robert on 01-07-2023 Eosinophils/100 WBC (Bld) 6.3 % . [facility] Erythrocyte distribution wid th Auto (RBC) [Ratio]Ordered By: Fozia Robert on 01-07-2023 Erythrocyte distribution width (RBC) [Ratio] 13.5 % 11.9-15.3 [facility] Globulin Calc (S) [Mass/Vol] Ordered By: Fozia Robert on 01-07-2023 Globulin (S) [Mass/Vol] 2.8 g/dL [facility] Glucose [Mass/volume] in Ser um or PlasmaOrdered By: Fozia Robert on 01-07-2023 Glucose [Mass/Vol] 91 mg/dL 70-100 [facility] Comment on above: ADA recommended refe rence rangeRandom Glucose Reference Range is dependent on time and content of last meal. Glucose of more than 200 mg/dL in a nonstressed, ambulatory subject supports the diagnosis of Diabetes Mellitus. Hematocrit Auto (Bld) [Volum e fraction]Ordered By: Fozia Robert on 01-07-2023 Hematocrit (Bld) [Volume fraction] 41.1 % 34.0-46.4 [facility] Hemoglobin [Mass/volume] in BloodOrdered By: Fozia Robert on 01-07-2023 Hemoglobin (Bld) [Mass/Vol] 14.3 g/dL 11.8-15.4 [facility] Leukocytes [#/volume] correc isaac for nucleated erythrocytes in Blood by Automated counOrdered By: Fozia Robert on 01-07-2023 WBC corrected for nucl RBC Auto (Bld) [#/Vol] 5.1 10*3/uL 3.8-11.6 [facility] Lymphocytes Auto (Bld) [#/Vo l]Ordered By: Fozia Robert on 07-02-2023 Lymphocytes (Bld) [#/Vol] 1.4 10*3/uL 1.00-4.8 [facility] Lymphocytes/100 WBC Auto (Bl d)Ordered By: Fozia Robert on 01-07-2023 Lymphocytes/100 WBC (Bld) 26.9 % . [facility] MCH Auto (RBC) [Entitic mass ]Ordered By: Fozia Robert on 01-07-2023 MCH (RBC) [Entitic mass] 30.1 pg 24.7-34.3 [facility] MCHC Auto (RBC) [Mass/Vol]Or dered By: Fozia Robert on 01-07-2023 MCHC (RBC) [Mass/Vol] 34.7 g/dL 32.0-35.0 [facility] MCV Auto (RBC) [Entitic vol] Ordered By: Fozia Robert on 01-07-2023 MCV (RBC) [Entitic vol] 86.8 fL 80-100 [facility] Monocyte distribution width [Entitic volume] in Blood by AutomatedOrdered By: Fozia Robert on 01-07-2023 Monocyte distribution width Auto (Bld) [Entitic vol] 15.51 % 0.00-20.00 [facility] Monocytes Auto (Bld) [#/Vol] Ordered By: Fozia Robert on 01-07-2023 Monocytes (Bld) [#/Vol] 0.4 10*3/uL 0.0-0.8 [facility] Monocytes/100 WBC Auto (Bld) Ordered By: Fozia Robert on 01-07-2023 Monocytes/100 WBC (Bld) 8.6 % . [facility] Neutrophils Auto (Bld) [#/Vo l]Ordered By: Fozia Robert on 01-07-2023 Neutrophils (Bld) [#/Vol] 2.9 10*3/uL 1.8-7.7 [facility] Neutrophils/100 WBC Auto (Bl d)Ordered By: Fozia Robert on 01-07-2023 Neutrophils/100 WBC (Bld) 56.7 % . [facility] No Panel InformationOrdered By: Fozia Robert on 01-07-2023 Estimated GFR (CKD-EPI) > 60.0 mL/Min [facility] Creatinine Clearance (Chem 59.57 [facility] Nucleated erythrocytes [Pres ence] in Blood by Automated countOrdered By: Fozia Robert on 01-07-2023 Nucleated RBC Auto Ql (Bld) 0.1 /100{WBC} 0-0.5 [facility] Platelet mean volume Auto (B ld) [Entitic vol]Ordered By: Fozia Robert on 01-07-2023 Platelet mean volume (Bld) [Entitic vol] 6.9 fL 6.3-10.7 [facility] Platelets Auto (Bld) [#/Vol] Ordered By: Fozia Robert on 01-07-2023 Platelets (Bld) [#/Vol] 325 10*3/uL 150-450 [facility] Potassium [Moles/volume] in Serum or PlasmaOrdered By: Fozia Robert on 01-07-2023 Potassium [Moles/Vol] 4.2 mmol/L 3.5-5.1 [facility] Protein [Mass/volume] in Ser um or PlasmaOrdered By: Fozia Robert on 01-07-2023 Protein [Mass/Vol] 7.2 g/dL 6.4-8.9 [facility] RBC Auto (Bld) [#/Vol]Ordere d By: Fozia Robert on 01-07-2023 RBC (Bld) [#/Vol] 4.74 10*6/uL 3.60-5.00 [facility] Serum or plasma albumin/glob ulin mass ratioOrdered By: Fozia Robert on 01-07-2023 Albumin/Globulin [Mass ratio] 1.6 {ratio} [facility] Serum or plasma anion gap de terminationOrdered By: Fozia Robert on 01-07-2023 Anion gap [Moles/Vol] 8.8 mmol/L 6.0-15.0 [facility] Sodium [Moles/volume] in Ser um or PlasmaOrdered By: Fozia Robert on 01-07-2023 Sodium [Moles/Vol] 140 mmol/L 136-145 [facility] Troponin I High Sensitivityo n 01-07-2023 Troponin I High Sensitivity 2.3 pg/mL Normal 0.0-15.0 [facility] Comment on above: Result Comment: PERF ORMED BY: [facility] [address] [place], [place] [id number] PATHOLOGIST PAINTER AYANNA MARADIAGA M.D. Performed By: #### C BC, HS TROP, CMP, CK #### [facility] [address] [place] [address] [facility] Troponin I.cardiac [Mass/vol ume] in Serum or Plasma by Detection limit <= 0.01 ng/Ordered By: Fozia Robert on 01-07-2023 Troponin I.cardiac DL <= 0.01 ng/mL [Mass/Vol] 2.3 pg/mL 0.0-15.0 [facility] Urea nitrogen [Mass/volume] in Serum or PlasmaOrdered By: Foiza Robert on 01-07-2023 Urea nitrogen [Mass/Vol] 14 mg/dL 01-30 [facility] WBC Auto (Bld) [#/Vol]Ordere d By: Fozia Robert on 01-07-2023 WBC (Bld) [#/Vol] 5.1 10*3/uL 3.8-11.6 [facility] Covid-19 PCR (CVDTBH)on 07-10 SARS-CoV-2 (COVID-19) RNA LESLY+probe Ql (Unsp spec) Not detected Normal NOT DETECTED [facility] Comment on above: Result Comment: This test is not yet approved or cleared by the [place] FDA. When there are no FDA-approved or cleared tests available, and other criteria are met, FDA can make tests available under an emergency access mechanism called an Emergency Use Authorization (EUA). The EUA for this test is supported by the [place] of Health and Human Service's (HHS's) declaration [...] SARS-CoV-2. Performed By: #### C VDTBH #### [facility] [address] [place] [address] Dr. Allison Faulkner INFLUENZA A AND B AGon 08-04 INFLUANE SEE BELOW Normal [facility] Comment on above: Result Comment: Nega tive for Flu A protein angiten. Infection due to Flu A cannot be ruled out. Flu A angiten in the sample may be below the detection limit of the test. Performed By: #### I NFLUAB, RSV #### [facility] [address] [place] [address] [address] Allison Faulkner INFLUBNEG SEE BELOW Normal [facility] Comment on above: Result Comment: Nega tive for Flu B protein antigen. Infection due to Flu B cannot be ruled out. Flu B antigen in the sample may be below the detection limit of the test. Performed By: #### I NFLUAB, RSV #### [facility] [address] [place] [address] Dr. Allison Faulkner INFLUENZA A AG Negative Normal NEGATIVE SEE COMMENT [facility] Comment on above: Performed By: #### I NFLUAB, RSV #### [facility] [address] [place] [address] Dr. Allison Faulkner INFLUENZA B AG Negative Normal NEGATIVE SEE COMMENT [facility] Comment on above: Performed By: #### I NFLUAB, RSV #### [facility] [address] [place] [address] Dr. Allison Faulkner RSVon 08-04-2022 RSV AG Negative Normal NEGATIVE [facility] Comment on above: Performed By: #### I NFLUAB, RSV #### [facility] [address] [place] [address] CARDIAC SCORINGon 022 [...] hypertension E78.5: Hyperlipidemia. COMPARISON: None. ACCESSION NUMBER(S): [id number] ORDERING CLINICIAN: SAMANTHA ROBERT TECHNIQUE: Using prospective [...] calcuate using link below https://www.ngo-nhlbi.org/ MESACHDRisk/MesaRiskScore/R iskScore.aspx Robbie. JACC 2015 (http://dx.doi.org/10.1016/ j.j acc.2015.08.035) Reading Section Chief: Dr. Julio Cannon, Date: 05/31/2022 12:28 pm Electronically signed by: GILBERTO HATCH MD Normal [facility] CT Cardiac Scoringon 022 CT Cardiac Scoring Normal -[facility] Heart-Sandu osmar 250 DO Work Phone: Office Visit (Cardiology)on 05-15-2022 Follow-up visit Diagnoses/Problems Assessed Palpitations (785.1) (R00.2) PVC symptomatic Reported 3% PVC burden [facility] summer 2021. We will request records. Essential [...] last office follow-up. She was evaluated by [facility] cardiology for second opinion regarding palpitations. Reports [...] additional testing. No caffeine, no alcohol, no crju-cqh-ojqrrky medications or energy drinks. Encouraged to get [...] Tablet Extended (more content not included)... Normal [employer] Tobacco Screening.on 022 Tobacco use status CPHS b) No [facility]-Sandu osmar 250 DO Work Phone: Tobacco Screening. Yes [facility] Heart-Sandu osmar 250 DO Work Phone: PAP ACOG PANEL 2: 30 to 65on 04-20-2022 . . Normal [facility] Comment on above: Result Comment: Perf ormed at: WB Performed By: #### [id number] #### [facility] [address] [place] [address] [address] Allison Faulkner Age Gdln ACOG Testing 30-65 Normal [facility] Comment on above: Performed By: #### [id number] #### [facility] [address] [place] [address] [address] Allison Faulkner DIAGNOSIS: Comment Normal [facility] Comment on above: Result Comment: NEGA TIVE FOR INTRAEPITHELIAL LESION OR MALIGNANCY. REACTIVE CELLULAR CHANGES AND/OR REPAIR ARE PRESENT. Performed at: WB Performed By: #### [id number] #### [facility] [address] [place] [address] [address] Allison Faulkner Electronically signed by: Comment Normal [facility] Comment on above: Result Comment: Teresa Joaquin MD, Pathologist Performed at: WB Performed By: #### [id number] #### [facility] [address] [place] [address] [address] Allison Faulkner HPV Aptima Negative Normal Negative [facility] Comment on above: Result Comment: This nucleic acid amplification test detects fourteen high-risk HPV types (16,18,31,33,35,39,45,51,52,56,58,59,66,68) without differentiation. Performed at: =G Performed By: #### 4 [id number] #### [facility] [address] [place] [address] Dr. Allison Faulkner Methodology: Comment Normal [facility] Comment on above: Result Comment: This liquid based ThinPrep(R) pap test was screened with the use of an image guided system. Performed at: WB Performed By: #### [id number] #### [facility] [address] [place] [address] Dr. Allison Faulkner Note: Comment Normal [facility] Comment on above: Result Comment: The Pap smear is a screening test designed to aid in the detection of premalignant and malignant conditions of the uterine cervix. It is not a diagnostic procedure and should not be used as the sole means of detecting cervical cancer. Both false-positive and false-negative reports do occur. . Performed at: WB Performed By: #### [id number] #### [facility] [address] [place] [address] Dr. Allison Faulkner Performed by: Comment Normal [facility] Comment on above: Result Comment: Rommel Nation, Information Technology Security Manager (ASCP) Performed at: WB Performed By: #### [id number] #### [facility] [address] [place] [address] Dr. Allison Faulkner Specimen adequacy: Comment Normal [facility] Comment on above: Result Comment: Sati sfactory for evaluation. Endocervical and/or squamous metaplastic cells (endocervical component) are present. Performed at: WB Performed By: #### [id number] #### [facility] [address] [place] [address] Dr. Allison Faulkner MG MAMM SCREEN 3D LUAN CADon 04-18-2022 MG MAMM SCREEN 3D LUAN CAD Patient: IVONNE ECHEVARRIA Exam Date: 04/18/2022 : 1955 Gender:F Ordering : DR TYLER ERVIN . Admission #: [id number] Family : Order #: [id number] CLICK HERE TO VIEW EXAM RADIOLOGY REPORT [...] rectal cancer at age 71. LOCATION: [facility] BREAST COMPOSITION: Extremely dense, which lowers the [...] Becerril MD on 04/18/2022 at 10:32 Normal [facility] XR DEXA BONE DENSITYon 04-18 XR DEXA [...] by: BRIAN STEVEN Date: 2022-04-18 16:16 Normal [facility] Complete Blood Count with Au to Diffon 11-08-2021 Basophils (Bld) [#/Vol] 0.10 10*3/uL Normal 0.00-0.20 [facility] Specialist Comment on above: Performed By: #### L IPD, CBCAD, CMP #### [facility] [address] [place], [place] [id number] Basophils/100 WBC (Bld) 1.7 % Normal [facility] Specialist Comment on above: Performed By: #### L IPD, CBCAD, CMP #### [facility] [address] [place], [place] [id number] Eosinophils (Bld) [#/Vol] 0.65 10*3/uL High 0.02-0.50 [facility] Specialist Comment on above: Performed By: #### L IPD, CBCAD, CMP #### [facility] [address] [place], [place] [id number] Eosinophils/100 WBC (Bld) 10.9 % Normal [facility] Comment on above: Performed By: #### L IPD, CBCAD, CMP #### [facility] [address] [place], [place] [id number] Erythrocyte distribution width (RBC) [Ratio] 12.0 % Normal 11.0-15.0 [facility] Specialist Comment on above: Performed By: #### L IPD, CBCAD, CMP #### [facility] [address] [place], [place] [id number] Hematocrit (Bld) [Volume fraction] 41.5 % Normal 35.0-47.0 [facility] Specialist Comment on above: Performed By: #### L IPD, CBCAD, CMP #### [facility] [address] [place], [place] [id number] Hemoglobin (Bld) [Mass/Vol] 13.5 g/dL Normal 11.6-15.5 [facility] Specialist Comment on above: Performed By: #### L IPD, CBCAD, CMP #### [facility] [address] [place], [place] [id number] Lymphocytes (Bld) [#/Vol] 1.5 10*3/uL Normal 0.9-3.9 [facility] Specialist Comment on above: Performed By: #### L IPD, CBCAD, CMP #### [facility] [address] [place], [place] [id number] Lymphocytes/100 WBC (Bld) 25.0 % Normal [facility] Comment on above: Performed By: #### L IPD, CBCAD, CMP #### [facility] [address] [place], [place] [id number] MCH (RBC) [Entitic mass] 29.6 pg Normal 27.0-33.0 [facility] Comment on above: Performed By: #### L IPD, CBCAD, CMP #### [facility] [address] [place], [place] [id number] MCHC (RBC) [Mass/Vol] 32.5 g/dL Normal 32.0-36.0 [facility] Comment on above: Performed By: #### L IPD, CBCAD, CMP #### [facility] [address] [place], [place] [id number] MCV (RBC) [Entitic vol] 91 fL Normal 80-100 [facility] Comment on above: Performed By: #### L IPD, CBCAD, CMP #### [facility] [address] [place], [place] [id number] Monocytes (Bld) [#/Vol] 0.5 10*3/uL Normal 0.2-0.9 [facility] Comment on above: Performed By: #### L IPD, CBCAD, CMP #### [facility] [address] [place], [place] [id number] Monocytes/100 WBC (Bld) 8.1 % Normal [facility] Comment on above: Performed By: #### L IPD, CBCAD, CMP #### [facility] [address] [place], [place] [id number] Neutrophils (Bld) [#/Vol] 3.2 10*3/uL Normal 1.5-7.8 [facility] Specialist Comment on above: Performed By: #### L IPD, CBCAD, CMP #### [facility] [address] [place], [place] [id number] Neutrophils/100 WBC (Bld) 54.1 % Normal [facility] Comment on above: Performed By: #### L IPD, CBCAD, CMP #### [facility] [address], [place] [id number] Platelet mean volume (Bld) [Entitic vol] 9.90 fL Normal 7.50-12.50 [facility] Comment on above: Performed By: #### L IPD, CBCAD, CMP #### [facility] [address] [place], [place] [id number] Platelets (Bld) [#/Vol] 336 10*3/uL Normal 140-400 [facility] Comment on above: Performed By: #### L IPD, CBCAD, CMP #### [facility] [address] [place], [place] [id number] RBC (Bld) [#/Vol] 4.56 10*6/uL Normal 3.90-5.20 [facility] Comment on above: Performed By: #### L IPD, CBCAD, CMP #### [facility] [address] [place], [place] [id number] RDW-SD 40.6 fL Normal 37.0-50.0 [facility] Specialist Comment on above: Performed By: #### L IPD, CBCAD, CMP #### [facility] [address] [place], [place] [id number] WBC (Bld) [#/Vol] 6.0 10*3/uL Normal 3.8-11.0 [facility] Comment on above: Performed By: #### L IPD, CBCAD, CMP #### [facility] [address] [place], [place] [id number] Comprehensive Metabolic Pane [facility] 11-08-2021 Albumin [Mass/Vol] 4.6 g/dL Normal 3.6-5.1 [facility] Comment on above: Performed By: #### L IPD, CBCAD, CMP #### [facility] [address] [place], [place] [id number] Albumin/Globulin [Mass ratio] 2.1 {ratio} Normal 1.0-2.5 [facility] Comment on above: Performed By: #### L IPD, CBCAD, CMP #### [facility] [address] [place], [place] [id number] ALP [Catalytic activity/Vol] 68 U/L Normal 35-119 [facility] Comment on above: Performed By: #### L IPD, CBCAD, CMP #### [facility] [address] [place], [place] [id number] ALT [Catalytic activity/Vol] 18 U/L Normal 6-33 [facility] Comment on above: Result Comment: 06/08 Female reference range changed. Performed By: #### L IPD, CBCAD, CMP #### [facility] [address] [place], [place] [id number] Anion gap [Moles/Vol] 15 mmol/L Normal 12-20 [facility] Comment on above: Result Comment: Effe ctive 07/14/2019 reference range changed. Performed By: #### L IPD, CBCAD, CMP #### [facility] [address] [place], [place] [id number] AST [Catalytic activity/Vol] 24 U/L Normal 9-34 [facility] Comment on above: Performed By: #### L IPD, CBCAD, CMP #### [facility] [address] [place], [place] [id number] Bilirubin [Mass/Vol] 0.71 mg/dL Normal 0.30-1.20 [facility] Comment on above: Performed By: #### L IPD, CBCAD, CMP #### [facility] [address] [place], [place] [id number] BUN/CREA 34 Ratio High 6-22 [facility] Comment on above: Performed By: #### L IPD, CBCAD, CMP #### [facility] [address] [place], [place] [id number] Calcium [Mass/Vol] 9.3 mg/dL Normal 8.6-10.2 [facility] Comment on above: Performed By: #### L IPD, CBCAD, CMP #### [facility] [address] [place], [place] [id number] Chloride [Moles/Vol] 105 mmol/L Normal 98-107 [facility] Comment on above: Performed By: #### L IPD, CBCAD, CMP #### [facility] [address] [place], [place] [id number] CO2 [Moles/Vol] 28 mmol/L Normal 20-31 [facility] Specialist Comment on above: Performed By: #### L IPD, CBCAD, CMP #### [facility] [address] [place], [place] [id number] Creatinine [Mass/Vol] 0.6 mg/dL Normal 0.6-1.4 [facility] Specialist Comment on above: Performed By: #### L IPD, CBCAD, CMP #### [facility] [address] [place], [place] [id number] eGFRAA 122 mL/min/1.73m2 Normal >60 [facility] Specialist Comment on above: Performed By: #### L IPD, CBCAD, CMP #### [facility] [address] [place], [place] [id number] eGFRNAA 100 mL/min/1.73m2 Normal >60 [facility] Specialist Comment on above: Performed By: #### L IPD, CBCAD, CMP #### [facility] [address] [place], [place] [id number] Globulin (S) [Mass/Vol] 2.2 g/dL Normal 1.9-3.7 [facility] Specialist Comment on above: Performed By: #### L IPD, CBCAD, CMP #### [facility] [address] [place], [place] [id number] Glucose [Mass/Vol] 86 mg/dL Normal 65-99 [facility] Comment on above: Result Comment: For FASTING Glucose --- ADA reference ranges: Normal 65-99 mg/dl Prediabetes 100-125 Diabetes >/= 126 Performed By: #### L IPD, CBCAD, CMP #### [facility] [address] [place], [place] [id number] Potassium [Moles/Vol] 4.4 mmol/L Normal 3.5-5.5 [facility] Comment on above: Performed By: #### L IPD, CBCAD, CMP #### [facility] [address] [place], [place] [id number] Protein [Mass/Vol] 6.8 g/dL Normal 6.1-8.1 [facility] Comment on above: Performed By: #### L IPD, CBCAD, CMP #### [facility] [address] [place], [place] [id number] Sodium [Moles/Vol] 143 mmol/L Normal 135-146 [facility] Comment on above: Performed By: #### L IPD, CBCAD, CMP #### [facility] [address] [place], [place] [id number] Urea nitrogen [Mass/Vol] 20 mg/dL Normal 7-25 [facility] Comment on above: Performed By: #### L IPD, CBCAD, CMP #### [facility] [address] [place], [place] [id number] Lipid Panelon 11-08-2021 Cholesterol [Mass/Vol] 192 mg/dL Normal 125-200 No [facility] Comment on above: Result Comment: Low risk < 200mg/dL Borderline risk 201-239 mg/dl High risk > or equal to 240 Performed By: #### L IPD, CBCAD, CMP #### [facility] [address] [place], [place] [id number] Cholesterol in HDL [Mass/Vol] 61 mg/dL Normal >40 [facility] Specialist Comment on above: Result Comment: High Cardiovascular Risk HDL <40 mg/dL Low Cardiovascular Risk HDL > or equal to 60 mg/dl Performed By: #### L IPD, CBCAD, CMP #### [facility] [address] [place], [place] [id number] Cholesterol in LDL [Mass/Vol] 118 mg/dL Normal [facility] Comment on above: Result Comment: LDL ATP III CLASSIFICATION LDL less than 100 mg/dl Optimal LDL 100-129 mg/dl Near or above optimal LDL 130-159 Borderline high LDL 160-189 High LDL greater than 189 mg/dl Very High Performed By: #### L IPD, CBCAD, CMP #### [facility] [address] [place], [place] [id number] Cholesterol in VLDL [Mass/Vol] 13 mg/dL Normal [facility] Comment on above: Performed By: #### L IPD, CBCAD, CMP #### [facility] [address] [place], [place] [id number] Cholesterol.total/Chol esterol in HDL [Mass ratio] 3 {ratio} Normal [facility] Comment on above: Performed By: #### L IPD, CBCAD, CMP #### [facility] [address] [place], [place] [id number] Triglyceride [Mass/Vol] 66 mg/dL Normal 30-150 [facility] Comment on above: Result Comment: TRIG ATPIII CLASSIFICATIONS TRIG less than 150 mg/dl Normal TRIG 150-199 mg/dl Borderline High TRIG 200-500 mg/dl High TRIG greather than 500 mg/dl Very High Performed By: #### L IPD, CBCAD, CMP #### [facility] [address] [place], [place] [id number] CNOVon 08-12-2021 CNOV Office Visit (CARCMN ) IVONNE ECHEVARRIA ([id number]) 1955 F Date Time Provider Department 08/12/21 9:45 AM GASPER HAMILTON CARCMN During your visit today, we recorded the following information about you: Pulse Blood pressure Weight Height 67/minute 143/82 67.1 kg 1.575 m Gasper Hamilton MD 08/12/2021 11:45 AM [facility] [place] Emmett Coy Department of Cardiovascular Medicine SECTION OF CLINICAL CARDIOLOGY OUTPATIENT VISIT DATE August 12, 2021 OUTPATIENT VISIT TYPE NEW PRIMARY CARE PHYSICIAN : Conchis Zamora, [address] [place] [address] REFERRING PHYSICIAN: Teagan Szymanski [address] [facility] [address] CHIEF COMPLAINT: Second opinion Cardiovascular evaluation HISTORY OF PRESENT ILLNESS: Ms. Echevarria is a 65 year old female who presents today for cardiovascular evaluation. CARDIAC HISTORY: ? Palpitations, evaluated by [facility] as well as Dr. Schneider in [place]. Chronic in nature. Has been on atenolol [...] No family (more content not included)... Normal [facility] Hardeep 07-20-2021 CNPN Telephone (CARCMN) WALEMARYANNE ([id number]) 1955 F Date Time Provider Department 07/20/21 GASPER HAMILTON During your visit today, we recorded the following information about you: Radha Casas 07/20/2021 10:53 AM Signed Received by fax multiple Medical Records from [facility]. Pt has future 08/12/[address] appt. Uploaded into Dr. Hamilton OPD folder, scanned into [employer] and placed in Dr Hamilton in basket for review [facility] T [facility] Allergies As of Date: 07/20/2021 Noted Allergy Reaction BIAXIN (CLARITHROMYCIN) 09/29/2016 5 - Intolerance Date Reviewed: Never Reviewed Reason for Visit: Received Outside Medical Records [[id number]] Cmt: [facility] Prescriptions as of 07/20/2021 - ergocalciferol, vitamin [...] Take by mouth. - Vit A,C and W-Lbqg-F2-Lut-Mn-Glu (EYE-MIRZA EXTRA + LUTEIN) 1000 unit-300mg -100 unit-2 mg tab Take by mouth. - UBIDECARENONE (CO Q-10 ORAL) Take by mouth. - aspirin, enteric coated (ASPIRIN, ENTERIC COATED) 81 mg EC tablet Take 81 mg by mouth once daily. Problem List As Of Date 07/20/2021 Noted Resolved Vitamin D deficiency [E55.9] 10/07/2016 Encounter Status:Closed by RADHA MURPHY on 07/20/21 [facility] 07-12-2021 JEWELLN Telephone (ZACK) IVONNE ECHEVARRIA ([id number]) 1955 F Date Time Provider Department 07/12/21 GASPER HAMILTON During your visit today, we recorded the following information about you: Radha Casas 07/12/2021 10:17 AM Signed LM for pt requesting Medical Records prior to 08/12/21 appt. Address, Email and Fax provided Radha Casas Allergies As of Date: 07/12/2021 Noted Allergy Reaction BIAXIN (CLARITHROMYCIN) 09/29/2016 5 - Intolerance Date Reviewed: Never Reviewed Reason for Visit: Request Outside Medical Records [[id number]] Prescriptions as of 07/12/2021 - ergocalciferol, vitamin [...] Take by mouth. - Vit A,C and P-Utdq-G9-Lut-Mn-Glu (EYE-MIRZA EXTRA + LUTEIN) 1000 unit-300mg -100 unit-2 mg tab Take by mouth. - UBIDECARENONE (CO Q-10 ORAL) Take by mouth. - aspirin, enteric coated (ASPIRIN, ENTERIC COATED) 81 mg EC tablet Take 81 mg by mouth once daily. Problem List As Of Date 07/12/2021 Noted Resolved Vitamin D deficiency [E55.9] 10/07/2016 Encounter Status:Closed by RADHA MURPHY on 07/12/21 Normal [facility] Office Visit (Cardiology)on 05-30-2021 Follow-up visit Diagnoses/Problems Assessed Palpitations (785.1) (R00.2) Hyperlipidemia (272.4) (E78.5) Essential hypertension (401.9) (I10) Overweight with body mass index (BMI) of 26 to 26.9 in adult (278.02,V85.22) (E66.3,Z68.26) Patient Instructions By signing my name below, I, Racheal Mccord LPN,Scribe, attest that this documentation has been prepared under the direction and in the presence of Dr. Julio Christian, DO. Please bring all medicines, vitamins, and [...] Signs Recorded: 30May2021 08:59AM Heart Rate71, Apical Wocldere185, LUE, Sitting Kppfbwvra47, LUE, Sitting Height5 ft 2 in Nszgyn353 lb BMI Coghgzspuo86.52 kg/m2 BSA Calculated1.67 Tobacco Useb) No Fall Screeninga) No falls within the last year Signatures Electronically signed by : Julio Christian DO; May 30 2021 9:19AM EST (Author) Normal [employer] Tobacco Screening.on 021 Fall risk assessment a) No falls within the last year [facility] [employer] 250 DO Work Phone: Tobacco use status [facility] b) No [facility] [facility] 250 DO Work Phone: Vital Signs Date Time Vital Sign Value Performing Clinician Facility 04-24-2024 08:45-0400 Body mass index (BMI) [Ratio] 26.54 kg/m2 Tyler Ervin DO Work Phone: [facility] 04-24-2024 08:45-0400 Body weight 65.83 kg Tyler Aziza DO Work Phone: [facility] 04-24-2024 08:45-0400 Diastolic blood pressure 70 mm[Hg] Tyler Aziza DO Work Phone: [facility] 04-24-2024 08:45-0400 Systolic blood pressure 122 mm[Hg] Tyler Aziza DO Work Phone: [facility] 04-22-2024 09:16-0400 Blood Pressure Location Ludmila Orzech [facility] 04-22-2024 09:16-0400 Diastolic blood pressure 88 mm[Hg] Ludmila Orzech [facility] 04-22-2024 09:16-0400 Heart rate 91 /min Ludmila Orzech [facility] 04-22-2024 09:16-0400 Respiratory rate 16 /min Ludmila Orzech [facility] 04-22-2024 09:16-0400 Systolic blood pressure 128 mm[Hg] Ludmila Orzech [facility] 04-14-2024 08:54-0400 Body height 157.5 cm Conchis Zamora DO Work Phone: [facility] 04-14-2024 08:54-0400 Body mass index (BMI) [Ratio] 27.11 kg/m2 Conchis Zamora DO Work Phone: [facility] 04-14-2024 08:54-0400 Body temperature 96.3 [degF] Conchis Zamora DO Work Phone: [facility] 04-14-2024 08:54-0400 Body weight 67.22 kg Conchis Zamora DO Work Phone: [facility] 10-07-2024 08:54-0400 Diastolic blood pressure 82 mm[Hg] Conchis Zamora DO Work Phone: [facility] 04-14-2024 08:54-0400 Heart rate 77 /min Conchis Zamora DO Work Phone: [facility] 04-14-2024 08:54-0400 SaO2% (BldA) [Mass fraction] 98 % Conchis Zamora DO Work Phone: [facility] 04-14-2024 08:54-0400 Systolic blood pressure 126 mm[Hg] Conchis Zamora DO Work Phone: [facility] 05-10-2023 09:11-0400 Body height 157.5 cm Lacey Damico MD Work Phone: [facility] 05-10-2023 09:11-0400 Body mass index (BMI) [Ratio] 26.16 kg/m2 Lacey Damico MD Work Phone: [facility] 05-10-2023 09:11-0400 Body weight 64.86 kg Lacey Damico MD Work Phone: [facility] 05-10-2023 09:11-0400 Diastolic blood pressure 72 mm[Hg] Lacey Damico MD Work Phone: [facility] 05-10-2023 09:11-0400 Heart rate 84 /min Lacey Damico MD Work Phone: [facility] 05-10-2023 09:11-0400 Systolic blood pressure 118 mm[Hg] Lacey Damico MD Work Phone: [facility] 01-17-2023 13:00-0400 Body height 157.48 cm Malvin Westbrook Other [facility] Other 01-17-2023 13:00-0400 Body mass index (BMI) [Ratio] 26.52 kg/m2 Malvin Westbrook Other [facility] Other 01-17-2023 13:00-0400 Body weight 65.77 kg Malvin Westbrook Other [facility] [place] Other 01-17-2023 13:00-0400 Diastolic blood pressure 69 mm[Hg] Malvin Upy Other [facility] Other 01-17-2023 13:00-0400 Systolic blood pressure 111 mm[Hg] Malvin Upy Other [facility] Other 01-15-2023 09:05-0400 Blood Pressure Location Morgan TILLMAN [facility] 01-15-2023 09:05-0400 Diastolic blood pressure 68 mm[Hg] Morgan TILLMAN [facility] 01-15-2023 09:05-0400 Heart rate 80 /min Morgan TILLMAN [facility] 01-15-2023 09:05-0400 Respiratory rate 16 /min Morgan TILLMAN [facility] 01-15-2023 09:05-0400 Systolic blood pressure 120 mm[Hg] Morgan TILLMAN [facility] 01-07-2023 13:52-0400 Diastolic blood pressure 92 mm[Hg] DO Conchis Petznick Work Phone: [facility] 01-07-2023 13:52-0400 Heart rate 85 /min DO Conchis Petznick Work Phone: [facility] 01-07-2023 13:52-0400 Respiratory rate 16 /min DO Conchis Petznick Work Phone: [facility] 01-07-2023 13:52-0400 SaO2% (BldA) [Mass fraction] 99 % DO Conchis Guerraick Work Phone: [facility] 01-07-2023 13:52-0400 Systolic blood pressure 152 mm[Hg] DO Conchis Petznick Work Phone: [facility] 01-07-2023 12:40-0400 Body height 157.48 cm DO Conchis Urrutiaznick Work Phone: [facility] 01-07-2023 12:40-0400 Body weight 68.03 kg DO Conchis Guerraick Work Phone: [facility] 01-07-2023 12:34-0400 Body temperature 98 [degF] DO Conchis Urrutiaznick Work Phone: [facility] 10-09-2022 14:00-0400 Body height 157.48 cm Filemon Meléndez Other [facility] Other 10-09-2022 14:00-0400 Diastolic blood pressure 83 mm[Hg] Filemon Meléndez Other [facility] Other 10-09-2022 14:00-0400 Systolic blood pressure 114 mm[Hg] Filemon Meléndez Other [facility] Other 05-15-2022 08:11-0500 Body height 157.48 cm Conchis Guerraick Work Phone: [facility] [employer] 250 DO Work Phone: 05-15-2022 08:11-0500 Body mass index (BMI) [Ratio] 27.25 kg/m2 Conchis Guerraick Work Phone: [facility] [employer] 250 DO Work Phone: 05-15-2022 08:11-0500 Body surface area Derived from formula 1.69 m2 Conchis C Petznick Work Phone: [facility] 250 DO Work Phone: 05-15-2022 08:11-0500 Body weight 67.59 kg Conchis Zamora Work Phone: [facility] 250 DO Work Phone: 05-15-2022 08:11-0500 Diastolic blood pressure 88 mm[Hg] Conchis Zamora Work Phone: [facility] 250 DO Work Phone: 05-15-2022 08:11-0500 Heart rate 76 /min Conchis Zamora Work Phone: [facility] 250 DO Work Phone: 05-15-2022 08:11-0500 Systolic blood pressure 138 mm[Hg] Conchis Zamora Work Phone: [facility] 250 DO Work Phone: 01-20-2022 08:32-0400 Blood Pressure Location Morgan TILLMAN [facility] 01-20-2022 08:32-0400 Diastolic blood pressure 84 mm[Hg] Morgan TILLMAN [facility] 01-20-2022 08:32-0400 Heart rate 64 /min Morgan TILLMAN [facility] 01-20-2022 08:32-0400 Respiratory rate 16 /min Morgan TILLMAN [facility] 01-20-2022 08:32-0400 Systolic blood pressure 138 mm[Hg] Morgan TILLMAN [facility] Lilia 08-16-2021 10:00-0500 Body height 157.48 cm Malvin Westbrook Other [facility] [place] Other 08-16-2021 10:00-0500 Body mass index (BMI) [Ratio] 26.52 kg/m2 Malvin Westbrook Other [facility] Other 08-16-2021 10:00-0500 Body weight 65.77 kg Malvin Westbrook Other [facility] Other 08-16-2021 10:00-0500 Diastolic blood pressure 77 mm[Hg] Malvin Westbrook Other [facility] Other 08-16-2021 10:00-0500 Systolic blood pressure 129 mm[Hg] Malvin Westbrook Other [facility] [employer] Other 05-30-2021 08:59-0500 Body height 157.48 cm Conchis Zamora [facility] 250 DO Work Phone: 05-30-2021 08:59-0500 Body mass index (BMI) [Ratio] 26.52 kg/m2 Conchis Zamora Work [facility] 250 DO Work Phone: 05-30-2021 08:59-0500 Body surface area Derived from formula 1.67 m2 Conchis Zamora Work Phone[facility] 250 DO Work Phone: 05-30-2021 08:59-0500 Body weight 65.77 kg Conchis Zamora Work Phone: [facility] 250 DO Work Phone: 05-30-2021 08:59-0500 Diastolic blood pressure 84 mm[Hg] Conchis Zamora Work Phone: [facility] 250 DO Work Phone: 05-30-2021 08:59-0500 Heart rate 71 /min Conchis Zamora Work Phone: [facility] 250 DO Work Phone: 05-30-2021 08:59-0500 Systolic blood pressure 135 mm[Hg] Conchis Zamora Work Phone: [facility] 250 DO Work Phone: Encounters Encounter Date Encounter Type Care Provider Facility Start: 06-23-2024 ambulatory Morgan Butler ty:ELZBIETA Rodrigues Start: 05-05-2024 End: 05-05-2024 Bamboo flowsheet Krishanfaviola Perry DOWELING MACHINE OPERATOR [facility] Start: 05-05-2024 End: 05-05-2024 Bamboo flowsheet Krishan Perry DOWELING MACHINE OPERATOR [facility] Start: 05-05-2024 End: 05-05-2024 ambulatory Krishan Orlando DOWELING MACHINE OPERATOR [facility] Comment on above: S/P arthroscopy of r ight shoulder (Primary Dx); Right shoulder pain, unspecified chronicity Start: 05-02-2024 End: 05-02-2024 Bamboo flowsheet Rain Starr PT [facility] Start: 05-02-2024 End: 05-02-2024 Bamboo flowsheet Rain Starr PT [facility] Start: 05-02-2024 End: 05-02-2024 ambulatory Rain Starr PT [facility] Comment on above: S/P arthroscopy of r ight shoulder (Primary Dx); Right shoulder pain, unspecified chronicity Start: 04-30-2024 End: 04-30-2024 Bamboo flowsheet Krishan Orlando DOWELING MACHINE OPERATOR [facility] Start: 04-30-2024 End: 04-30-2024 Bamboo flowsheet Krishan Perry DOWELING MACHINE OPERATOR [facility] Start: 04-30-2024 End: 04-30-2024 ambulatory Krishan Perry DOWELING MACHINE OPERATOR [facility] Comment on above: S/P arthroscopy of r ight shoulder (Primary Dx); Right shoulder pain, unspecified chronicity Start: 04-25-2024 End: 04-25-2024 Bamboo flowsheet Krishan Perry DOWELING MACHINE OPERATOR [facility] Start: 04-25-2024 End: 04-25-2024 Bamboo flowsheet Krishan Perry DOWELING MACHINE OPERATOR [facility] Start: 04-25-2024 End: 04-25-2024 ambulatory Krishan Perry DOWELING MACHINE OPERATOR [facility] Comment on above: S/P arthroscopy of r ight shoulder (Primary Dx); Right shoulder pain, unspecified chronicity Start: 04-24-2024 End: 05-02-2024 Clinisync Result Encounter Tyler Aziza DO Work Phone: [facility] Unsolicited Start: 04-24-2024 End: 05-02-2024 Clinisync Result Encounter Tyler Aziza DO Work Phone: [facility] Unsolicited Start: 04-24-2024 End: 04-24-2024 Patient encounter procedure Tyler Aziza DO Work Phone: [facility] Work Phone: Start: 04-24-2024 End: 04-24-2024 Periodic preventive med est patient 65yrs& older Tyler Aziza DO Work Phone: [facility] Comment on above: Well woman exam with routine gynecological exam; Breast cancer screening by mammogram; Postmenopausal state; Stomach pain; Pelvic pain in female Start: 04-24-2024 End: 04-24-2024 ambulatory TYLER AZIZA Not Available Start: 04-23-2024 End: 04-23-2024 Nga Sheikh Stepanic DO Work Phone: [facility] Start: 04-23-2024 End: 04-23-2024 Bambochepe Sheikh Stepanic DO Work Phone: [facility] Start: 04-23-2024 End: 04-23-2024 ambulatory ., CHERIE MCCLELLAN Not Available Start: 04-23-2024 End: 04-23-2024 Postop follow up visit related to original px Jr. Cherie Mcclellan DO Work Phone: [facility] Comment on above: S/P arthroscopy of r ight shoulder (Primary Dx); Internal derangement of right shoulder Start: 04-22-2024 End: 04-22-2024 ambulatory [facility] X [facility] Start: 04-22-2024 End: 04-22-2024 Patient encounter procedure [facility] X [facility]ech [facility] Start: 04-18-2024 End: 04-18-2024 ambulatory [facility] Start: 04-18-2024 End: 04-18-2024 Patient encounter procedure Morgan TILLMAN [facility] Start: 04-17-2024 End: 04-17-2024 Bamboo flowsheet Krishan Perry DOWELING MACHINE OPERATOR [facility] Start: 04-17-2024 End: 04-17-2024 Bamboo flowsheet Krishan Perry DOWELING MACHINE OPERATOR [facility] Start: 04-17-2024 End: 04-17-2024 ambulatory Krishan Perry DOWELING MACHINE OPERATOR [facility] Comment on above: S/P arthroscopy of r ight shoulder (Primary Dx); Right shoulder pain, unspecified chronicity Start: 04-14-2024 End: 04-14-2024 Patient encounter procedure Conchis Zamora DO Work Phone: [facility] Comment on above: Routine general medi bess examination at a health care facility (Primary Dx); Mitral valve prolapse; Dukes's esophagus with dysplasia; Gastroesophageal reflux disease with esophagitis without hemorrhage; Essential hypertension (CMS/HCC); Mixed hyperlipidemia (CMS/HCC); Anxiety; Age-related osteoporosis without current pathological fracture ([facility]); Irritation of eyelid Start: 04-14-2024 End: 04-14-2024 Patient encounter status Conchis Zamora DO Work Phone: [facility] Work Phone: Start: 04-14-2024 End: 04-14-2024 ambulatory CONCHIS ZAMORA Not Available Start: 04-14-2024 End: 04-14-2024 ambulatory Krishan Orlando DOWELING MACHINE OPERATOR [facility] Comment on above: S/P arthroscopy of r ight shoulder (Primary Dx); Right shoulder pain, unspecified chronicity Start: 04-10-2024 End: 04-10-2024 Bamboo flowsheet Rain Starr PT [facility] Start: 04-10-2024 End: 04-10-2024 Bamboo flowsheet Rain Matty PT [facility] Start: 04-10-2024 End: 04-10-2024 ambulatory Rain Starr PT [facility] Comment on above: S/P arthroscopy of r ight shoulder (Primary Dx); Right shoulder pain, unspecified chronicity Start: 04-07-2024 End: 04-07-2024 ambulatory KRISHAN ORLANDO Not Available Start: 04-03-2024 End: 04-03-2024 ambulatory KRISHAN ORLANDO Not Available Start: 03-31-2024 End: 03-31-2024 ambulatory KRISHAN ORLANDO Not Available Start: 03-27-2024 End: 03-27-2024 ambulatory DEVON HUSTON Not Available Start: 03-24-2024 End: 03-24-2024 ambulatory KRISHAN ORLANDO Not Available Start: 03-20-2024 End: 03-20-2024 ambulatory RAIN STARR Not Available Start: 03-17-2024 End: 03-17-2024 ambulatory KRISHAN ORLANDO Not Available Start: 03-13-2024 End: 03-13-2024 ambulatory KRISHAN ORLANDO Not Available Start: 03-12-2024 End: 03-12-2024 ambulatory CHERIE JEFFERY Not Available Start: 03-11-2024 End: 03-11-2024 ambulatory RAIN MATTY Not Available Start: 03-07-2024 End: 03-07-2024 ambulatory KRISHAN PERRY Not Available Start: 03-05-2024 End: 03-05-2024 ambulatory KRISHAN PERRY Not Available Start: 02-28-2024 End: 02-28-2024 ambulatory KRISHAN PERRY Not Available Start: 02-26-2024 End: 02-26-2024 ambulatory RAIN STARR Not Available Start: 02-22-2024 End: 02-22-2024 ambulatory KRISHAN PERRY Not Available Start: 02-19-2024 End: 02-19-2024 ambulatory SHARA DUMONT Not Available Start: 02-14-2024 End: 02-14-2024 ambulatory RAINCHAU STARR Not Available Start: 02-14-2024 End: 02-14-2024 ambulatory CONCHIS BUENO Not Available Start: 01-17-2024 End: 01-17-2024 ambulatory CONCHIS BUENO Not Available Start: 11-16-2023 End: 11-16-2023 ambulatory CHERIE JEFFERY Not Available Start: 11-05-2023 End: 11-05-2023 ambulatory AGUILA MERCADO Not Available Start: 10-31-2023 End: 10-31-2023 ambulatory NATALIA YEAGER Not Available Start: 10-23-2023 End: 10-23-2023 ambulatory AGUILA Chiang MERCADO Not Available Start: 10-09-2023 End: 10-09-2023 ambulatory AGUILA Chiang MERCADO Not Available Start: 07-26-2023 End: 07-26-2023 ambulatory CONCHIS ZAMORA Not Available Start: 07-10-2023 End: 07-10-2023 ambulatory CONCHIS ZAMORA Not Available Start: 05-10-2023 End: 05-10-2023 ambulatory [facility] Ambulatory Start: 05-10-2023 End: 05-10-2023 Office outpatient visit 15 minutes Lacey Damico MD Work Phone: [facility] Comment on above: Essential hypertensi on; Mixed hyperlipidemia; Palpitations; BMI 26.0-26.9,adult Start: 01-17-2023 End: 01-17-2023 ambulatory Malvin Westbrook Other [facility] Other Start: 01-17-2023 Patient encounter procedure Malvin JOSEPH [facility] Start: 01-15-2023 End: 01-15-2023 Patient encounter procedure Morgan TILLMAN [facility] Lilia Start: 01-07-2023 End: 01-07-2023 Emergency department patient visit Conchis Zamora Facility:[facility] Start: 01-07-2023 End: 01-07-2023 Emergency department patient visit DO Conchis Zamora Work Phone: [facility] Work Phone: Start: 10-23-[address] GALINA Jo y:H1 Start: 10-09-2022 End: 10-09-2022 ambulatory Filemon Meléndez Other [facility] Other Start: 10-09-2022 Office outpatient vi sit 15 minutes Filemon Meléndez [facility] Start: 10-02-2022 End: 10-02-2022 ambulatory Malvin Westbrook Other [facility] Other Start: 10-02-2022 Telephone encounter Malvin HOWARD [facility] Start: 09-11-2022 End: 09-11-2022 Lab Drop off Morgan TILLMAN [facility] Start: 08-04-2022 End: 08-04-2022 ambulatory CONCHIS ZAMORA Facility:[facility] Start: 07-04-2022 End: 07-04-2022 ambulatory Malvin Westbrook Other [facility] Other Start: 07-04-2022 Telephone encounter Malvin HOWARD [facility] Start: 06-06-2022 Chart Update Conchis ramos Work Phone: [facility] 250 DO Work Phone: Start: 05-31-2022 ambulatory Ms. Samantha Robert Facilit y:[id number] Start: 05-15-2022 Office outpatient vi sit 15 minutes Conchis Zamora Work Phone: [facility] 250 DO Work Phone: Start: 05-15-2022 ambulatory JEWELL Robert Facilit y: Start: 04-18-2022 End: 04-19-[address] TYLER ERVIN . Facility:[facility] Start: 04-15-2022 End: 04-15-2022 ambulatory CONCHIS ZAMORA Facility:[facility] Start: 04-10-2022 End: 04-10-[address] TYLER ERVIN . Facility: Start: 01-20-2022 End: 01-20-2022 Patient encounter procedure Morgan TILLMAN [facility] Start: 12-14-2021 Rx Renewal Conchis ramos Work Phone: [facility] 250 DO Work Phone: Start: 11-29-2021 End: 11-29-2021 Lab Drop off Larryjodiejonathon Valenzuela Marah [facility] Start: 11-29-2021 End: 11-29-2021 Patient encounter procedure Morgan TILLMAN [facility] Start: 11-28-2021 Orders Only Gasper wagoner MD Work Phone: Cardiology Comment on above: Sleep apnea, unspeci fied type (Primary Dx) Start: 10-19-2021 End: 10-19-2021 ambulatory Gasper Hamilton MD Work Phone: Cardiology Comment on above: Heart palpitations ( Primary Dx) Start: 10-19-2021 End: 10-19-2021 Telemedicine consultation with patient Gasper Hamilton MD Work Phone: [facility] Start: 10-14-2021 Chart abstracting [facility] Main Work Phone: Neurology Comment on above: HSAT Check In (Adult ) Start: 09-09-2021 Rx Renewal Conchis ramos Work Phone: [facility] 250 DO Work Phone: Start: 08-16-2021 End: 08-16-2021 ambulatory Malvin Perezjoyjohn Other [facility] Other Start: 08-16-2021 Patient encounter procedure Malvin Westbrook [facility] Gastroenter[facility] Start: 08-15-2021 Rx Renewal Conchis ramos Work Phone: [facility] 250 DO Work Phone: Start: 05-30-2021 Office outpatient vi sit 25 minutes Conchis Zamora Work Phone: [facility] 250 DO Work Phone: Start: 05-30-[address] Conchis Zamora Facility: Start: 05-26-2021 Rx Renewal Julio Christian DO Work Phone: [facility] 250 DO Work Phone: Echocardiogram normal Conchis Zamora Work Phone: [facility] 250 DO Work Phone: Radionuclide heart s tudy normal Conchis Zamora Work Phone: [facility] 250 DO Work Phone: Procedures Date Procedure Procedure Detail Performing Clinician Start: 04-24-2024 Urnls dip stick/tablet rgnt non-auto w/o micrscp Tyler Aziza DO Work Phone: Start: 10-17-2024 IGP,APTIMA HPV,AGE GDLN Tyler Ervin DO Work Phone: Start: 05-10-2023 Lipid panel LACEY DAMICO Start: 05-10-2023 Comprehensive metabolic 2000 panel - Serum or Plasma LACEY DAMICO Start: 04-20-2023 Mammography Rain Starr PT Start: 04-11-2023 Cytp cerv/vag auto thin layer prep mnl screen Tyler Ervin DO Work Phone: Start: 01-07-2023 CT of head without contrast DO Conchis vaz Work Phone: Start: 04-18-2022 Mammography Lacey Damico MD Work Phone: Start: 04-04-2021 Dilation of urethra Morgan TILLMAN Start: 06-28-2020 Dilation of urethra Morgan TILLMAN Start: 03-12-2019 Esophagogastroduodenoscopy Morgan RAMÍREZ S Start: 10-21-2018 End: 10-21-2018 Colonoscopy Rain Starr PT Start: 11-16-2017 Dilation of urethra Morgan TILLMAN Start: 01-29-2017 Cystourethroscopy with dilation of urethral stricture Morgan TILLMAN Start: 09-29-2016 Adult depression screening assessment Gasper Hamilton MD Work Phone: section Conchis vaz Work Phone: section Morgan MONTERROSO MORRIS Laparoscopy Morgan TILLMAN Repair of musculoten dinous cuff of shoulder Conchis Zamora Work Phone: Rotator cuff includi ng muscles and tendons (body structure) Morgan TILLMAN Tonsillectomy Conchis ramos Work Phone: Tonsillectomy Morgan TILLMAN Total colonoscopy Conchis Zamora Work Phone: Plan of Treatment Date Care Activity Detail Author Start: 10-21-2028 Screening for malign ant neoplasm of colon [facility] Start: 04-30-2025 End: 04-30-2025 Patient encounter procedure 04/30/2025 8:30 AM EDT Office Visit [facility] [address] [place] [id number] Tyler Evrin, DO [address] [place] [address] [facility] Start: 04-24-2025 Medicare Annual Wellness (AWV) Medicare Annual Wellness (AWV) [facility] Start: 04-14-2025 Medicare Annual Wellness (AWV) Medicare Annual Wellness (AWV) [facility] Start: 06-11-2024 End: 06-11-2024 Patient encounter procedure 06/11/2024 8:45 AM EST Office Visit [facility] [address] [place] [phone] Jr. Cherie Mcclellan, DO [address] [place] [address] [facility] Start: 05-16-2024 End: 05-16-2024 ambulatory 05/16/2024 7:30 AM EST Treatment [facility] [address] [place] [id number] Krishan Perry PTA [facility] Start: 05-14-2024 End: 05-14-2024 ambulatory 05/14/2024 7:30 AM EST Treatment [facility] [address] [place] [address] Krishan Perry PTA [facility] Start: 05-12-2024 End: 05-12-2024 Patient encounter procedure 05/12/2024 9:00 AM EST Office Visit [place] [address] [facility] [address] [place] [phone] Lacey Damico MD [address] [facility] [address] [place] [address] [facility] Start: 05-10-2024 End: 05-10-2024 Comprehensive metabolic 2000 panel - Serum or Plasma Comprehensive Metabolic Panel Lab Routine Essential hypertension Mixed hyperlipidemia Expected: 05/10/2024 (Approximate), Expires: 05/10/2024 [facility] Service Area Work Phone: Comment on above: Expected: 05/10/2024 (Approximate), Expires: 05/10/2024 Start: 05-10-2024 End: 05-10-2024 Lipid 1996 panel - Serum or Plasma Lipid Panel Lab Routine Essential hypertension Mixed hyperlipidemia Expected: 05/10/2024 (Approximate), Expires: 05/10/2024 [facility] Work Phone: Comment on above: Expected: 05/10/2024 (Approximate), Expires: 05/10/2024 Start: 05-09-2024 End: 05-09-2024 ambulatory 05/09/2024 7:30 AM EDT Treatment [facility] [address] [facility] [address] [place] [address] Krishan Perry PTA [facility] Start: 05-08-2024 End: 05-08-2024 Professional / ancillary services management 05/08/2024 11:00 AM EDT Ancillary Procedure [facility] [address] [place] [phone] [facility] Start: 05-05-2024 End: 05-05-2024 ambulatory 05/05/2024 7:30 AM EDT Treatment [facility] [address] [facility] [address] [place] [address] Krishan Perry, CAMILO [facility] Start: 05-02-2024 End: 05-02-2024 ambulatory [facility] Comment on above: Arrived Start: 04-30-2024 End: 04-30-2024 ambulatory 04/30/2024 7:30 AM EDT Treatment [facility] [address] [facility] [address] [place] [address] Krishan Perry, DOWELING MACHINE OPERATOR [facility] Start: 04-25-2024 End: 04-25-2024 ambulatory 04/25/2024 7:30 AM EDT Treatment [facility] [address] [facility] [address] [place] [address] Krishan Perry DOWELING MACHINE OPERATOR [facility] Start: 04-24-2024 End: 04-24-2025 DXA Skeletal system Views for bone density DEXA bone density Imaging Routine Postmenopausal state Expected: 04/24/2024 (Approximate), Expires: 04/24/2025 [facility] Comment on above: Expected: 04/24/2024 (Approximate), Expires: 04/24/2025 Start: 04-24-2024 End: 06-24-2025 MG Breast - bilateral Screening Bilateral screening mammogram Imaging Routine Breast cancer screening by mammogram Expected: 04/24/2024, Expires: 06/24/2025 [facility] Work Phone: Comment on above: Expected: 04/24/2024 , Expires: 06/24/2025 Start: 04-24-2024 End: 04-24-2025 US for US PELVIS-TRANSVAG IF INDICATED Imaging Routine Stomach pain Pelvic pain in female Expected: 04/24/2024 (Approximate), Expires: 04/24/2025 [facility] Comment on above: Expected: 04/24/2024 (Approximate), Expires: 04/24/2025 Start: 04-24-2024 End: 04-24-2024 Patient encounter procedure 04/24/2024 8:30 AM EDT Office Visit [facility] [address] [place] [phone] Tyler Ervin DO [address] [place], [place] [id number] [facility] Start: 04-23-2024 End: 04-23-2024 Patient encounter procedure 04/23/2024 8:45 AM EDT Office Visit [facility] [address] [place] [address] Jr. Cherie Mcclellan, DO [address] [place] [address] [facility] Start: 04-21-2024 End: 04-21-2024 ambulatory 04/21/2024 7:30 AM EDT Treatment [facility] [address] [place] [address] Krishan Perry, CAMILO [facility] Start: 04-20-2024 Screening for malign ant neoplasm of breast Mammogram [facility] Start: 04-17-2024 End: 04-17-2024 ambulatory [facility] Comment on above: Arrived Start: 04-14-2024 End: 04-14-2024 Patient encounter procedure 04/14/2024 9:00 AM EDT Office Visit [facility] [address] [facility] [address] [place] [address] Conchis Zamora, DO [address] [facility] [address] [place] [address] [facility] Start: 04-14-2024 End: 04-14-2024 ambulatory 04/14/2024 7:30 AM EDT Treatment [facility] [address] [facility] [address] [place] [address] Krishan Perry, CAMILO [facility] Start: 04-11-2024 Medicare Annual Wellness (AWV) Medicare Annual Wellness (AWV) [facility] Start: 03-09-2024 Influenza vaccination Influenza Vacc ine (#1) [facility] Start: 05-10-2023 FUV, Provider: Lacey Damico, Status: Pen, Time: 9:00 AM FUV, Provider: Lacey Damico, Status: Pen, Time: 9:00 AM [facility] 250 DO Work Phone: Start: 04-18-2023 Screening for malign ant neoplasm of breast Mammogram [facility] Start: 04-18-2023 Screening for osteoporosis Bone Density Scan [facility] Start: 03-09-2023 Influenza vaccination Influenza Vacc ine (#1) [facility] Start: 05-11-2022 FUV, Provider: Julio Christian, Status: Pen, Time: 1:45 PM FUV, Provider: Julio Christian, Status: Pen, Time: 1:45 PM [facility] Work Phone: Start: 10-18-2021 COVID-19 Vaccine (6 - Additional dose for Soha series) COVID-19 Vaccine (6 - Additional dose for Soha series) [facility] Start: 2021 ADVANCE DIRECTIVE DISCUSSION ADVANCE DIRECTIVE DISCUSSION Start: 2021 BONE DENSITY BONE DENSITY Start: 2021 PNEUMOVAX AGE 65 AND OVER WITH 5YR LOOKBACK (#1) PNEUMOVAX AGE 65 AND OVER WITH 5YR LOOKBACK (#1) Start: 05-30-2021 FUV, Provider: Julio Christian, Status: Pen, Time: 8:45 AM FUV, Provider: Julio Christian, Status: Pen, Time: 8:45 AM [facility] 250 DO Work Phone: Start: 09-29-2017 Adult depression screening assessment DEPRESSION SCREENING Start: 2006 SHINGRIX VACCINE (1 of 2) SHINGRIX VACCINE (1 of 2) Start: 2001 COLOGUARD (FIT-DNA) COLOGUARD (FIT-D NA) Start: 2001 Colonoscopy COLONOSCOPY Start: 2001 COLORECTAL CANCER SCREENING COLORECTAL CANCER SCREENING Start: [address] COLONOGRAPHY [facility] Start: 2001 DIABETES SCREEN DIABETES SCREEN [facility] Start: 2001 FECAL OCCULT BLOOD FECAL OCCULT BLOO D Start: 2001 LIPID SCREEN LIPID SCREEN Start: 2001 SIGMOIDOSCOPY SIGMOIDOSCOPY [facility] Start: 1996 Mammography MAMMOGRAM Start: 1978 DTaP/Tdap/Td Vaccine s (1 - Tdap) DTaP/Tdap/Td Vaccines (1 - Tdap) [facility] Start: 1975 Urine microalbumin profile DTAP,TDAP,TD (1 - Tdap) Start: 1974 ANNUAL PCP TEAM TRANSPORT ENGINEER CHAR DISEASE VISIT ANNUAL PCP TEAM CHRONIC DISEASE VISIT Start: 1974 BP CONTROLLED (<130/80) BP CONTROLLE D (<130/80) Start: 1974 Diabetes mellitus screening Diabetes Screening [facility] Start: 1974 HEPATITIS C SCREENING HEPATITIS C [facility] Start: 1974 Hepatitis C screening Hepatitis C [facility] Start: 1974 HIV SCREENING HIV SCREENING [facility] Start: 1956 Lipid panel Lipid Panel [facility] Start: 1956 Medicare Annual Wellness Visit Medicare Annual Wellness Visit (AWV) [facility] Start: 1956 Screening for malign ant neoplasm of colon [facility] Patient Education Vertigo ED [facility] Work Phone: Patient referral [facility] Work Phone: THIN PREP TIS PAP AN D HR HPV DNA THIN PREP TIS PAP AND HR HPV DNA Pathology and Cytology Routine Well woman exam with routine gynecological exam Ordered: 04/24/2024 [facility] Comment on above: Ordered: 04/24/2024 [facility] Immunizations Immunization Date Immunization Notes Care Provider Eula de la rosa 06-20-2022 influenza virus vaccine, unspecified formulation Morgan TILLMAN [facility] 06-20-2022 Influenza, injectabl e, Madin Hallie Canine Kidney, preservative free, quadrivalent Lacey Damico MD Work Phone: [facility] Work Phone: 04-04-2022 zoster vaccine recombinant Conchis Zamora Work Phone: [facility] 11-08-2021 Prevnar 20 0.5 ML Intramuscular Suspension Prefilled Syringe Conchis Zamora Work Phone: [facility] 10-10-2021 zoster vaccine recombinant Conchis Kori Zamora Work Phone: [facility] 06-19-2021 Pfizer-BioNTech COVID-19 Vacc 30 MCG/0.3ML Intramuscular Suspension Conchis Urrutiajamelarlyn Work Phone: [facility] 06-17-2021 influenza, injectabl e, quadrivalent, contains preservative Rain Starr [facility] 06-15-2021 influenza virus vaccine, unspecified formulation Morgan TILLMAN [facility] 06-15-2021 Influenza, injectabl e, Madin Gakona Canine Kidney, preservative free, quadrivalent Conchis Kori Zamoar Work Phone: [facility] 250 DO Work Phone: 10-07-2020 Pfizer-BioNTech COVID-19 Vacc 30 MCG/0.3ML Intramuscular Suspension Conchis Urrutiajamelarlyn Work Phone: [facility] 10-01-2020 SARS-CoV-2 (COVID-19 ) Ad26 vaccine, recombinant Morgan TILLMAN [facility] 09-16-2020 Pfizer-BioNTech COVID-19 Vacc 30 MCG/0.3ML Intramuscular Suspension Conchis Kori Zamora Work Phone: [facility] 09-10-2020 SARS-CoV-2 (COVID-19 ) Ad26 vaccine, recombinant Morgan TILLMAN [facility] 04-19-2020 influenza virus vaccine, unspecified formulation Ludmila Ruff [facility] 04-19-2020 influenza, injectabl e, madin hallie canine kidney, preservative free Conchis C Petznick Work Phone: [facility] 250 DO Work Phone: 06-20-2019 influenza virus vaccine, unspecified formulation Morgan TILLMAN [facility] 06-20-2019 Influenza, injectabl e, Madin Gakona Canine Kidney, quadrivalent with preservative [facility]is C [facility]nick [facility] Work Phone: 06-17-2018 influenza virus vaccine, unspecified formulation Morgan TILLMAN [facility] 06-17-2018 Influenza, injectabl e, Madin Gakona Canine Kidney, preservative free, quadrivalent Conchis C Petznick Work Phone: [facility] 250 DO Work Phone: 01-02-2007 tetanus toxoid, adsorbed Conchis C Petznick Work Phone: [facility] Payers Date Payer Category Payer Medicare (Managed Care) [facility] [id number] 2022 Unknown 2021 Unknown ANTHEM BLUE CROS S AND BLUE SHIELD ANTHEM MEDIBLUE ACCESS [id number] 2021-Present [phone] [id number] [place] [address] PPO [id number] 2020 Unknown [id number] 1959 Medicare [id number] [id number] 1959 Self-pay 1956 Unknown [id number] 2.16.840.1.783898.3.579. 2.356 1956 Unknown [id number] 2.16.840.1.397672.3.579. 2.356 1956 Unknown [id number] 2.16.840.1.461509.3.579. 2.1068 1956 Unknown [id number] 2.16.840.1.650986.3.579. 2.593 1956 Unknown [id number] 2.16.840.1.848146.3.579. 2.593 1956 Unknown [id number] 2.16.840.1.571510.3.579. 2.593 1956 Unknown [id number] 2.16.840.1.888642.3.579. 2.593 1956 Unknown [id number] 2.16.840.1.566272.3.579. 2.593 1956 Unknown [id number] 2.16.840.1.152048.3.579. 2.1244 1956 Unknown [id number] 2.16.840.1.336215.3.579. 2.727 1956 Unknown [id number] 2.16.840.1.853679.3.579. 2.727 1956 Unknown [id number] 2.16.840.1.935731.3.579. 2.727 1956 Unknown [id number] 2.16.840.1.766373.3.579. 2.1259 1956 Unknown [id number] 2.16.840.1.682879.3.579. 2.1259 1956 Unknown [id number] 2.16.840.1.574143.3.579. 2.1258 1956 Unknown [id number] 2.16.840.1.724770.3.579. 2.1258 1956 Unknown [id number] 2.16.840.1.569324.3.579. 2.1258 1956 Unknown [id number] 2.16.840.1.800013.3.579. 2.1258 1956 Unknown [id number] 2.16.840.1.462833.3.579. 2.1258 1956 Unknown [id number] 2.16.840.1.900072.3.579. 2.1258 1956 Unknown [id number] 2.16.840.1.204767.3.579. 2.1258 1956 Unknown [id number] 2.16.840.1.996677.3.579. 2.1258 1956 Unknown [id number] 2.16.840.1.279879.3.579. 2.1258 1956 Unknown [id number] 2.16.840.1.903493.3.579. 2.1258 1956 Unknown [id number] 2.16.840.1.382094.3.579. 2.1258 1956 Unknown [id number] 2.16.840.1.067206.3.579. 2.1258 1956 Unknown [id number] 2.16.840.1.871507.3.579. 2.1258 1956 Unknown [id number] 2.16.840.1.182226.3.579. 2.1258 1956 Unknown [id number] 2.16.840.1.071793.3.579. 2.1258 1956 Unknown [id number] 2.16.840.1.019377.3.579. 2.1258 1956 Unknown [id number] 2.16.840.1.164483.3.579. 2.1258 1956 Unknown [id number] 2.16.840.1.188922.3.579. 2.1258 1956 Unknown [id number] 2.16.840.1.481253.3.579. 2.1258 1956 Unknown [id number] 2.16.840.1.529173.3.579. 2.1258 1956 Unknown [id number] 2.16.840.1.373823.3.579. 2.1258 1956 Unknown [id number] 2.16.840.1.550662.3.579. 2.1258 1956 Unknown [id number] 2.16.840.1.558736.3.579. 2.1258 1956 Unknown [id number] 2.16.840.1.871970.3.579. 2.1258 1956 Unknown [id number] 2.16.840.1.824301.3.579. 2.1258 1956 Unknown [id number] 2.16.840.1.827248.3.579. 2.1258 1956 Unknown [id number] 2.16.840.1.208969.3.579. 2.1258 1956 Unknown [id number] 2.16.840.1.092600.3.579. 2.1258 1956 Unknown [id number] 2.16.840.1.837575.3.579. 2.1258 1956 Unknown [id number] 2.16.840.1.403446.3.579. 2.1258 1956 Unknown [id number] 2.16.840.1.307265.3.579. 2.1259 1956 Unknown [id number] 2.16.840.1.698780.3.579. 2.1259 1956 Unknown [id number] 2.16.840.1.178129.3.579. 2.1259 1956 Unknown [id number] 2.16.840.1.884873.3.579. 2.1259 1956 Unknown [id number] Unknown [id number] Unknown [id number] Unknown [id number] Social History Date Type Detail Facility Start: 05-10-2023 End: 07-09-2023 Social alcohol use Social alcohol use [facility] Start: 08-12-2021 End: 01-17-2024 Tobacco smoking status [facility] Ex-smoker End: 07-09-1989 History of tobacco use Current smoker Start: 08-12-2021 End: 01-17-2024 Tobacco use and exposure Smokeless tobacco non-user Start: 08-12-2021 End: 04-24-2024 Alcohol intake Current drinker of alcohol (finding) Start: 08-12-2021 History SDOH Alcohol Comment couple drinks weekly Start: 1955 Sex Assigned At Not on file Start: 03-28-2021 End: 04-22-2024 Tobacco smoking status Never smoked tobacco (finding) [facility] Tobacco smoking status Never [facility] Start: 05-10-2023 End: 07-09-2023 Sex Assigned At Female [facility] Other Start: 1955 Sex Assigned At Female [facility] Start: 05-10-2023 Alcohol Comment occasional wine/ mixed drink [facility] Work Phone: Start: 04-30-2023 End: 05-10-2023 Exposure to SARS-CoV-2 (event) Not sure [facility] End: 07-09-1977 History of tobacco use [...] Not at all [facility] (I/We) worried jose er (my/our) food would run out before [...] Equipment Identifier Dates Arthroscopy, shoulder ANCHOR 4.75 [facility] Start: 09-27-2018 Functional Status Date Assessment Result Facility 04-22-2024 Functional Status N/A [facility] 01-15-2023 Functional Status N/A [facility] 01-20-2022 Functional Status N/A [facility] Clinical Notes 08-12-2021 to 04-24-2024 Ivory Bazan LPN - 04/24/2024 8:30 AM EDTJdallas. Cherie Mcclellan, DO - 04/23/2024 8:45 AM Yue Zamora, DO - 04/14/2024 9:00 AM EDTSmisael Starr, PT - 04/10/2024 8:00 AM EDT Note Date & Type Note Facility 04-24-2024 History of Present illness Narrative Reason for Appointment: Patient ID: Ivonne Echevarria is a 68 y.o. female who presents for Well Women Visit Patient presents today for Annual Exam. MEDICATIONS Current Outpatient Medications Medication Instructions albuterol HFA 90 mcg/act inhaler Every 6 hours aspirin 81 mg, Oral, Daily RT biotin 1000 MCG tablet Oral, Daily RT calcium carbonate 600 mg, Oral, Daily RT coenzyme Q-10 100 MG capsule Every 24 hours estradiol (Estrace) 0.1 MG/GM vaginal cream APPLY 1 GRAM VAGINALLY TWICE A WEEK (SUNDAY & SUNDAY) ibandronate (Boniva) 150 MG tablet TAKE 1 TABLET BY MOUTH ONCE A MONTH WITH PLAIN WATER 60 MINUTES BEFORE THE FIRST FOOD, BEVERAGE OR MEDICINE OF THE DAY. latanoprost (Xalatan) 0.005 % ophthalmic solution 1 drop, Both Eyes, Nightly LORazepam (ATIVAN) 1 mg, Oral, See admin instructions, 1 by mouth 1 hour prior to MRI metoprolol succinate XL (Toprol-XL) 25 MG 24 hr tablet TAKE 1 AND 1/2 TABLETS DAILY BY MOUTH EVERY DAY MiraLax 17 GM/SCOOP powder as directed Orally montelukast (SINGULAIR) 10 mg, Oral, Daily pantoprazole (ProtoNix) 40 MG EC tablet TAKE 1 TABLET BY MOUTH EVERY DAY FOR 90 DAYS PARoxetine (Paxil) 20 MG tablet TAKE 1 TABLET BY MOUTH DAILY rosuvastatin (CRESTOR) 10 mg, Oral, Daily ALLERGIES Allergies Allergen Reactions Clarithromycin Unknown Glycerin Diarrhea PROBLEMS Active Ambulatory Problems Diagnosis Date Noted Age-related osteoporosis without current pathological fracture ([facility]) 01/10/2023 Anxiety 03/03/2020 Dukes's esophagus with dysplasia 03/03/2020 Chronic cystitis 01/10/2023 Dupuytrens contracture 04/01/2018 Dysphagia 01/10/2023 Eosinophilic esophagitis 01/10/2023 Gastroesophageal reflux disease 03/03/2020 Hemorrhoids 01/10/2023 Hyperlipidemia ([facility]) 03/06/2017 Microscopic hematuria 01/10/2023 Mitral valve prolapse 01/10/2023 Urethral stricture due to infection 01/10/2023 Stress incontinence 01/10/2023 Agatston coronary artery calcium score less than 100 05/10/2023 Dukes's esophagus 03/03/2020 Essential hypertension (CMS/HCC) 05/09/2023 Bone cyst of left ankle 07/27/2023 Stomach pain 04/24/2024 Postmenopausal state 04/24/2024 Breast cancer screening by mammogram 04/24/2024 Resolved Ambulatory Problems Diagnosis Date Noted Arthritis of right hip 04/19/2022 Frequency of urination 01/10/2023 Heartburn 01/10/2023 Hypertension, essential (CMS/HCC) 08/12/2021 LUQ pain 01/10/2023 Nocturia 01/10/2023 Personal history of smoking 01/10/2023 Pure hypercholesterolemia (CMS/HCC) 08/12/2021 Vitamin D deficiency 10/07/2016 Balance disorder 01/10/2023 BPPV (benign paroxysmal positional vertigo), left 01/12/2023 BMI 26.0-26.9,adult 05/09/2023 Palpitations 05/09/2023 Arthritis of hip 04/19/2022 Urge incontinence 07/10/2023 Past Medical History: Diagnosis Date Allergies Asthma (CMS/[facility]) Dukes esophagus Breast lump Diverticulitis HTN (hypertension) (CMS/[facility]) Ocular migraine ([facility]) ARINA (obstructive sleep apnea) Rotator cuff tear arthropathy, unspecified laterality HISTORY PAST MEDICAL HISTORY SOCIAL HISTORY Past Medical History: Diagnosis Date Allergies Anxiety Arthritis of hip 04/19/2022 Asthma (CMS/HCC) Dukes esophagus BPPV (benign paroxysmal positional vertigo), left 01/12/2023 Breast cancer screening by mammogram 04/18/2022 neg Breast lump Diverticulitis HTN (hypertension) (CMS/HCC) Hyperlipidemia (CMS/HCC) Hypertension, essential (CMS/HCC) 08/12/2021 Mitral valve prolapse Ocular migraine (CMS/[facility]) ARINA (obstructive sleep apnea) Mild, not tx Rotator cuff tear arthropathy, unspecified laterality left Social History Tobacco Use Smoking status: Former Current packs/day: 0.00 Types: Cigarettes Quit date: 07/09/1977 Years since quittin.8 Smokeless tobacco: Never Vaping Use Vaping status: Never Used Substance Use Topics Alcohol use: Yes Alcohol/week: 3.0 - 4.0 standard drinks of alcohol Types: 3 - 4 Standard drinks or equivalent per week Comment: 1-2 drinks 2-3 times a week Drug use: Never FAMILY HISTORY Family History Problem Relation Name Age of Onset Hyperlipidemia Mother Hypertension Mother Heart disease Mother Heart disease Father Hypertension Father Asthma Father Hyperlipidemia Father Prostate cancer Brother SURGICAL HISTORY Past Surgical History: Procedure Laterality Date BREAST LUMPECTOMY SECTION, LOW TRANSVERSE COLONOSCOPY 2014 COLONOSCOPY 10/03/2018 ESOPHAGOSCOPY / EGD 09/2017 SHOULDER ARTHROSCOPY Left 09/27/2018 SHOULDER ARTHROSCOPY W/ ROTATOR CUFF REPAIR Right 01/31/2024 DEBORAH W/ LALO ; DR MCCLELLAN TONSILLECTOMY REVIEW OF SYSTEMS Review of Systems: Review of Systems Genitourinary: Positive for pelvic pain. All other systems reviewed and are negative. OBJECTIVE Objective: Physical Exam Constitutional: Appearance: Normal appearance. She is well-developed. Genitourinary: Vulva normal. Breasts: Breasts are soft. Right: Normal. Left: Normal. Cardiovascular: Rate and Rhythm: Normal rate and regular rhythm. Pulmonary: Effort: Pulmonary effort is normal. Breath sounds: Normal breath sounds. Abdominal: General: Bowel sounds are normal. There is no distension. Palpations: Abdomen is soft. Tenderness: There is no abdominal tenderness. There is no guarding or rebound. Musculoskeletal: General: No swelling. Normal range of motion. Right lower leg: No edema. Left lower leg: No edema. Neurological: Mental Status: She is alert and oriented to person, place, and time. Skin: General: Skin is warm and dry. Psychiatric: Mood and Affect: Mood normal. Behavior: Behavior normal. Vitals and nursing note reviewed. Exam conducted with a spanish language lecturer present. Vitals: Estimated body mass index is 26.54 kg/m as calculated from the following: Height as of 04/14/24: 5' 2 . Weight as of this encounter: 145 lb 1.9 oz. BP: 122/70 No LMP recorded (lmp unknown). Patient is postmenopausal. ASSESSMENT & PLAN ICD-10-CM 1. Well woman exam with routine gynecological exam Z01.419 THIN PREP TIS PAP AND HR HPV DNA 2. Breast cancer screening by mammogram Z12.31 Bilateral screening mammogram Bilateral screening mammogram 3. Postmenopausal state Z78.0 DEXA bone density 4. Stomach pain R10.9 POCT urinalysis dipstick manually resulted Annual: Patient presents today for an annual exam. Patient states she is doing well and has complaints of GI issues; patient voiced possible gas for the past few weeks. Will order pelvic ultrasound to assess ovaries. Pap was obtained without difficulty and patient given mammogram order to have scheduled/obtained. Patient is up to date with colonoscopy. Advised patient to try Metamucil. Orders Placed This Encounter Procedures Bilateral screening mammogram DEXA bone density POCT urinalysis dipstick manually resulted Follow Up: Patient is to return in one year for annual unless needed otherwise. Documented by Ivory Bazan LPN on behalf of: Tyler Ervin DO documented in this encounter [facility] 04-23-2024 History of Present illness Narrative Images from the original note were not included. HISTORY OF PRESENT ILLNESS: POST OP PT Ivonne Echevarria is an 68 y.o. @ female. (EST PT) S/P (R) SHOULDER SCOPE W/ RCR (DRR) & SAD 01/31/24 (11WKS 6DAYS). DOING WELL. CONTINUES TO HAVE SOME MILD SORENESS. [facility]. CONTINUES INCREASING ROM. NO PAIN MEDS ; ICES PRN. NO LONGER WEARING ULTRASLING. REVIEW OF SYSTEMS: General: Denies fever, fatigue or weight loss Lungs: Denies SOB Cardio: Denies chest pain GI: Denies indigestion or abdominal pain Neuro: Denies numbness or tingling, denies new onset paralysis Musculoskeletal: ( see note) PHYSICAL EXAM: Right Shoulder Exam Tenderness The patient is experiencing no tenderness (compartments soft). Range of Motion Active abduction: normal Forward flexion: normal Muscle Strength Abduction: 5/5 Internal rotation: 5/5 External rotation: 5/5 Supraspinatus: 5/5 Subscapularis: 5/5 Biceps: 5/5 Other Erythema: absent Scars: absent (portals well healed) Sensation: normal Pulse: present Comments: The operative upper extremity was noted to be neurovascularly unchanged. Sensation to light touch was intact to all dermatomes to operative upper extremity. Radial and ulnar pulses were present and equal bilaterally. Patient was able to motor elbow wrist and fingers in all anatomic planes with 5 out of 5 strength on the operative upper extremity. Compartments were soft to operative upper extremity. There was no evidence of infection or ascending lymphangitis to operative extremity. MR shoulder right wo IV contrast Narrative: EXAMINATION: MR SHOULDER RIGHT WO IV CONTRAST [...] Fluid extending into the subacromial subdeltoid bursa. Impression: Full-thickness tearing involving essentially entire distal supraspinatus as discussed. Likely tear with distal retraction of the long head biceps tendon ELECTRONICALLY SIGNED BY: Alexy Saldana MD Procedures Orders Placed This Encounter Procedures Ambulatory referral to Physical Therapy [facility] May start active resistance / strengthening (R) shoulder s/p (R) shoulder scope Standing Status: Future Standing Expiration Date: 10/22/2024 Referral Priority: Routine Referral Type: Consultation Referral Reason: Consult and Treat Referred to Provider: Jassi Hernandez, PT Requested Specialty: Physical Therapy Number of Visits Requested: 1 ASSESSMENT: ICD-10-CM 1. S/P arthroscopy of right shoulder Z98.890 Ambulatory referral to Physical Therapy 2. Internal derangement of right shoulder M24.811 Ambulatory referral to Physical Therapy PLAN: We have answered all the patients questions and explained the patients condition, decision making and plan including the risks and benefits associated with said plan in layman''s terms in a language the patient could understand easily. If patient''s symptoms significantly worsen and they cannot get a hold of us or their family physician, we have recommended that the patient proceed to the nearest emergency department (room). Dr. Mcclellan obtained history and examined the patient, I am acting as scribe for Dr. Mcclellan/joe, PLAN: Patient is pleased with her right shoulder progress as she has increased ROM from prior examination. After examination today we are recommending that she start active resistance / strengthening in PT. We have discussed avoiding motions including, but not limited to : no heavy lifting. We have discussed her HEP and restrictions and will see her back in 6 weeks to reassess her strength / ROM of right shoulder. Cherie Mcclellan D.O. documented in this encounter [facility] 04-22-2024 Hospital Discharge instructions Patient Education 04/22/2024 09:53:03 Urethral Stricture Urethral Stricture Urethral stricture is when the [...] females, common causes of urethral stricture include: Urinary tract infection (UTI). Sexually transmitted infection (STI). Using a soft tube in the urethra to drain pee from the bladder (urinary catheter). Urinary tract surgery. In males, common causes of urethral stricture include: A severe injury to the pelvis. Prostate surgery. Injury to the penis. In many cases, the cause of urethral stricture is not known. What increases the risk? You are more likely to develop this condition if you: Are male. Males who have had prostate surgery are at risk of developing this condition. Use a urinary catheter. Have had urinary tract surgery. What are the signs or symptoms? The main symptom of this condition is trouble peeing. This may cause decreased pee flow, dribbling, or spraying of pee. Other symptom of this condition may include: Frequent UTIs. Blood in the pee. Pain when peeing. Swelling of the penis in males. Not being able to pee. How is this diagnosed? This condition may be diagnosed based on: Your medical history and a physical exam. Tests of your pee to check for infection or bleeding. X-rays. Ultrasound. Retrograde urethrogram. With this test, a dye is injected into the urethra and then an X-ray is taken. Urethroscopy. This is when a thin tube with a light and camera on the end (urethroscope) is used to look at the urethra. A CT scan or MRI. How is [...] blade or laser inserted through the urethroscope. Urethroplasty. In this procedure, an incision is made in the urethra and the narrow part is removed. Then, the urethra is reconstructed. Follow these instructions at home: Take tqln-ivy-syovxje and prescription medicines only as told by your health care provider. If you were prescribed antibiotics, take them as told by your provider. Do not stop using the antibiotic even if you start to feel better. Drink enough fluid to keep your pee pale yellow. Keep all follow-up visits. Your provider will check your healing and adjust your treatment plan as needed. Contact a health care provider if: You have frequent peeing or you are only peeing small amounts often. You feel the need to pee urgently. You have pain or burning when you pee. Your pee smells bad or unusual. Your pee is bloody or cloudy. You have pain in your lower abdomen or back. Your genital area is swollen, bruised, or discolored. This includes: ?The penis, scrotum, and inner thighs for males. ?The outer genital organs (vulva) and inner thighs for females. You have a fever. You develop swelling in your legs. Get help right away if: You cannot pee. You have trouble breathing. These symptoms may be an emergency. Get help right away. Call 911. Do not wait to see if the symptoms will go away. Do not drive yourself to the hospital. This information is not intended to replace advice given to you by your health care provider. Make sure you discuss any questions you have with your health care provider. Document Revised: 04/19/2023 Document Reviewed: 04/19/2023 [employer] Patient Education 2023 PushToTest. Follow Up Care 04/18/2024 11:00:24 With:PRIMO GRUBER, Morgan Haynes, URL Address: [address] [place] [address] [place] [address]- When: Unknown Comments:MARKOS JOSEPH [facility] 04-22-2024 Note Patient Education Urology Urethral Stricture [...] Follow these instructions at home: ? Take jrzf-jce-mshvvmt and prescription medicines only as told by [...] provider. Document Revised: 04/19/2023 Document Reviewed: 04/19/2023 Else[employer] Data Patient Education ? 2023 PushToTest. [facility] 04-14-2024 History of Present illness Narrative Images from the original note were not included. Ivonne Echevarria is a 68 y.o. female presents with chief complaint of Chief Complaint Patient presents with Annual Exam History of Present Illness Here for yearly MWV and to review recent lab results. Due for mammogram. Last dexa in 2021. Colonoscopy last in 2018. UTD on pneumonia vaccine. Would like to discuss flu vaccine- questioning if its too early to get. Normally gets around Dec List of current healthcare providers: Patient Care Team: Conchis Zamora DO as PCP - General (Family Medicine) Conchis Zamora DO as PCP - Devoted Medicare Annual [...] She has an upcoming appointment with her design engineering manager next month to address her heart palpitations. [...] (CMS/HCC) 08/12/2021 Mitral valve prolapse Ocular migraine ([facility]) ARINA (obstructive sleep apnea) Mild, not tx Rotator cuff tear arthropathy, unspecified laterality left Past Surgical History: Procedure Laterality Date BREAST LUMPECTOMY SECTION, LOW TRANSVERSE COLONOSCOPY 2013 COLONOSCOPY 10/03/2018 ESOPHAGOSCOPY / EGD 09/2017 SHOULDER ARTHROSCOPY Left 09/27/2018 SHOULDER ARTHROSCOPY W/ ROTATOR CUFF REPAIR Right 01/31/2024 DEBORAH Mcrae/ [facility] ; DR MCCLELLAN TONSILLECTOMY Depression: Not at risk (04/14/2024) PHQ-2 [...] [facility] I reviewed the patients past medical [...] which were brought forth. Mitral valve prolapse Dukes's esophagus with dysplasia Gastroesophageal reflux disease [...] a topical steroid will be sent to [facility] in [place]. She was instructed to apply it carefully to avoid getting it in her eyes. Potential initial tingling was discussed, which should subside quickly. CONCHIS ZAMORA D.O. This note was entered using [employer]. Grammatical and dictation errors maybe present in translation *I have reviewed and reconciled the history and medication list with the patient today* documented in this encounter [facility] 04-10-2024 History of Present illness Narrative Physical [...] quite a bit, mostly at night. Precautions: [place] Subjective: Pt states she will have some [...] instructed in home exercise program. - met Mcc Goals: To be met in 10 weeks [...] sign below. Date: documented in this encounter [facility] 05-10-2023 History of Present illness Narrative Patient [...] (R00.2) PVC symptomatic Reported 3% PVC burden [facility] at [facility] summer 2021. We will request records. Essential [...] Lacey Damico MD documented in this encounter [facility] Work Phone: 05-10-2023 Instructions Nancy Gutierrez [...] of your visit. documented in this encounter [facility] Work Phone: 01-17-2023 Evaluation note Encounter [...] IS UNDER EXCELLENT CONTROL WITH PPI DAILY [facility] Other 07-10-2023 Hospital Discharge instructions Follow Up Care 01/15/2023 09:36:38 With:PRIMO GRUBER, Morgan Haynes, URL Address: [address] [place] [address]- When: Unknown [facility] 07-10-2023 Hospital Discharge instructions Patient Education 01/15/2023 09:26:30 Urinary Tract Infection, Adult, [place] Urinary Tract Infection, Adult A urinary tract [...] Follow these instructions at home: Medicines Take kkrx-rtt-hqttevd and prescription medicines only as told by [...] provider. Document Revised: 02/04/2021 Document Reviewed: 02/04/2021 [employer] Patient Education 2022 PushToTest. Follow Up Care 01/20/2022 09:06:12 With:PRIMO GRUBER, Morgan Haynes, URL Address: [facility] [address] , [place] [address]- [phone] When:Within 1 Year(s) [facility] Evaluation note* Encounter Date Diagnosis Assessment [...] fiber. Patient to start Metamucil fiber OTC. [facility] Other 10-08-2022 NotePROCEDURE: XR HAND RT MIN 3V HISTORY: Bone injury ; third digit bruising; no known injury COMPARISON: None. FINDINGS: BONES:No fracture, acute abnormality, or significant arthropathy. SOFT TISSUES:No visible soft tissue swelling. EFFUSION:None visible. OTHER: Negative. IMPRESSION: 1. No appreciable bone or soft tissue abnormality to account for patient's symptoms. Electronically authenticated by: BRIAN STEVEN Date: 2022-04-15 16:35[facility]07-15-2022 Hospital Discharge instructions Patient Education 01/20/2022 08:40:31 [...] reconstructed. Follow these instructions at home: Take aqiw-caf-mcgsqhy and prescription medicines only as told by [...] 07/21/2016 Document Revised: 02/05/2019 Document Reviewed: 02/05/2019 [employer] Patient Education 2020 PushToTest. Follow Up Care 01/17/2021 13:06:47 With:PRIMO GRUBER, Morgan Haynes, URL Address: [address] [place], [place] [id number]- When:Within 1 Year(s) [facility] 04-21-2022 NoteHNO ID: [id number] Author: Adri Lozano Service: ? Author Type: ? Type: [place] Notes Filed: 10/27/2021 1:50 PM Note Text: Sleep Study Check-In Documentation Date: October 27, 2021 Name: Ivonne Echevarria Comments: HST was returned in working order with all sleep questionnaires [facility] of Present illness Narrative* Adri Lozano - 10/27/2021 1:50 PM EDT Sleep Study Check-In Documentation Date: October 27, 2021 Name: Ivonne Echevarria Comments: HST was returned in working order with all sleep questionnaires Adri Lozano * Koko Tolentino - 10/24/2021 9:20 AM EDT [facility]# [id number] , date shipped out 10/24 Tracking mailout:[id number] Tracking return: [id number] * Ester Del Angel MD - 10/17/2021 12:15 PM EDT October 17, 2021 Standing PSG Orders signed in the last 90 days None Future PSG Orders signed in the last 90 days Ordered Auth. provider HOME SLEEP APNEA TEST (HSAT) [[id number]] 09/22/21 Gasper Hamilton MD Assoc. diagnoses: Heart [...] from Dr. Gasper Hamilton MD, a [facility] Staff. Visit prep complete. Comments :No The sleep study is scheduled for 10/25. Insurance: Payor: [employer] CROSS AND BLUE [employer] / Plan: ANTHEM MEDIBLUE ACCESS / Product Type: PPO / Payor/Plan Subscr Sex Relation Sub. Ins. ID Effective Group Num 1. MARKELL HUMPHRIES IVONNE SZYMANSKI 1955 Female Self [id number] 08/09/21 [id number] [id number] Ivette Caro Pss documented in this encounter04-18-2022 NoteHNO ID: [id number] Author: Koko Tolentino Service: ? Author Type: ? Type: [place] Notes Filed: 10/27/2021 1:50 PM Note Text: [facility]# [id number] , date shipped out 10/24 Tracking mailout:[id number] Tracking return: [id number]04-[facility]-2022 NoteHNO ID: [id number] Author: Gasper Hamilton MD Service: ? Author Type: Physician Type: [place] Notes Filed: 10/19/2021 4:38 PM Note Text: Heart, Vascular AND Thoracic [place] [facility] VIRTUAL VIDEO VISIT [...] followup. CARDIAC HISTORY: ? Palpitations, evaluated by [facility] as well as Dr. Schneider?in [place]. ?Chronic in nature. ?Has been on atenolol [...] x 2 - Hypertension (more content not included)...[facility] 10-19-2021 History of Present illness Narrative* Gasper Hamilton MD - 10/19/2021 4:24 PM EDT Images from the original note were not included. Heart, [facility] [place] Department of Cardiovascular Medicine VIRTUAL VIDEO VISIT [...] for followup. CARDIAC HISTORY: Palpitations, evaluated by [facility] as well as Dr. Schneider in [place]. Chronic in nature. Has been on atenolol [...] 2011 was normal though did note exercise-induced ST-Tabnormality, [...] 19, 2021 4:25 PM documented in this encounter04-11-2022 NoteHNO ID: [id number] Author: Ester Del Angel MD Service: ? Author Type: Physician Type: Progress Notes Filed: 10/27/2021 1:50 PM Note Text: October 17, 2021 Standing PSG Orders signed in the last 90 days None Future PSG Orders signed in the last 90 days Ordered Auth. provider HOME SLEEP APNEA TEST (HSAT) [[id number]] 09/22/21 Gasper Hamilton MD Assoc. diagnoses: Heart [...] plan. Ester Del Angel MD 8:17 PM, [facility] NoteHNO ID: [id number] Author: Ivette Lozano Service: ? Author Type: ? Type: Progress Notes Filed: 10/27/2021 1:50 PM Note Text: October 14, 2021 An order has been received for Home Sleep Apnea Test (HSAT) from Dr. Gasper Hamilton MD, a [facility] Staff. Visit prep complete. Comments :No The sleep study is scheduled for 10/25. Insurance: Payor: [employer] AND BLUE [employer] / Plan: [employer] ACCESS / Product Type: PPO / Payor/Plan Subscr Sex Relation Sub. Ins. ID Effective Group Num 1. IVONNE VILLALPANDO 1955 Female Self [id number] 08/09/21 [id number] [address] Ivette Caro [facility]03-17-2022 NoteHNO ID: [id number] Author: Gasper Hamilton MD Service: ? Author Type: Physician Type: Progress Notes Filed: 09/22/2021 8:15 AM Note Text: Heart, [facility] [place] Department of Cardiovascular Medicine VIRTUAL VIDEO VISIT [...] ? CARDIAC HISTORY: ? Palpitations, evaluated by [facility] as well as Dr. Schneider in [place]. Chronic in nature. Has been on atenolol [...] more reassured. ? PLAN: ? Change beta sebastien to MTP succinate 25mg; uptitrate as needbe [...] Mother - Heart At (more content not included)...[facility]02-08-2022 Evaluation note* Encounter Date Diagnosis Assessment Notes Treatment Notes Treatment Clinical Notes Aug, GERD (gastroesophageal reflux disease) (ICD-10 - K21.9) Aug, Barretts esophagus (ICD-10 - K22.70) Aug, Constipation (ICD-10 - K59.00) CONTINUE MIRALAX DIRECTED [facility] Other 02-04-2022 NoteHNO ID: [id number] Author: Gilmar Jones DO Service: ? Author Type: Physician Type: Procedures Filed: 09/22/2021 2:50 PM Note Text: Patient Name: Ivonne Echevarria : 1955 Ordering Provider: GASPER HAMILTON Indication: R00.2 Palpitations Type of Monitor: Extended Monitoring-Zio Patch Enrollment Dates: 09/02/2021-09/16/2021[facility]02-04-2022 Note HNO ID: [id number] Author: Gasper Hamilton MD Service: ? Author Type: Physician Type: Progress Notes Filed: 08/12/2021 11:45 AM Note Text: [facility] [place] [facility] Department of Cardiovascular Medicine SECTION OF CLINICAL CARDIOLOGY OUTPATIENT VISIT DATE August 12, 2021 OUTPATIENT VISIT TYPE NEW PRIMARY CARE PHYSICIAN : Conchis Zamora DO [address] [place] [address] REFERRING PHYSICIAN: Teagan Szymanski [address] [facility] [address] CHIEF COMPLAINT: Second opinion Cardiovascular evaluation HISTORY OF PRESENT ILLNESS: Ms. Echevarria is a 65 year old female who presents today for cardiovascular evaluation. CARDIAC HISTORY: ? Palpitations, evaluated by [facility] as well as Dr. Schneider in [place]. Chronic in nature. Has been on atenolol [...] SUNDAY AND ONE ON (more content not included)...[facility] Future Appointments Appointment Date:01/20/2022 08:15:00 AM Scheduled Provider:Morgan TILLMAN MD Location:[facility] Appointment Type:URO Office Visit Diagnostic Tests Pending * Urine [facility] Future Appointments Appointment Date:01/20/2022 08:15:00 AM Scheduled Provider:Morgan TILLMAN MD Location:[facility] Appointment Type:URO Office Visit [facility] evaluation + Plan note Future Appointments Appointment Date:01/15/2023 08:45:00 AM Scheduled Provider:Morgan TILLMAN MD Location:[facility] Appointment Type:URO Office Visit [facility] evaluation + Plan note Future Appointments Appointment Date:01/15/2023 08:45:00 AM Scheduled Provider:Morgan TILLMAN MD Location:[facility] Appointment Type:URO Office Visit Diagnostic Tests Pending * Urine Culture [facility]11[facility]22 [facility] Future Appointments Appointment Date:01/21/2024 08:45:00 AM Scheduled Provider:Morgan TILLMAN MD Location:[facility] Appointment Type:URO Office Visit [facility] evaluation + Plan note Future Appointments Appointment Date:04/22/2024 09:00:00 AM Scheduled Provider:EDGAR Ruff APRN, [place] X Location:[facility] Appointment Type:URO Office Visit [facility] evaluation + Plan note Future Appointments Appointment Date:06/23/2024 03:00:00 PM Scheduled Provider:Morgan TILLMAN MD Location:[facility] Appointment Type:URO Office Visit [facility] evaluation note* Diagnosis Heart palpitations- Primary Palpitations [facility] Diagnosis Sleep apnea, unspecified type- Primary [facility] in [facility] noteNo InformationNort Lover.ly Other Evalugmnor noteNo assessment information available [facility] Work Phone: evaluation note* Diagnosis Essential hypertension Unspecified essential hypertension Mixed hyperlipidemia Palpitations BMI 26.0-26.9,adult documented in this encounter [facility] Work Phone: Evaluation note* Diagnosis S/P arthroscopy of right shoulder- Primary Right shoulder pain, unspecified chronicity [facility] Diagnosis S/P arthroscopy of right shoulder- Primary Right shoulder pain, unspecified chronicity [facility]* Diagnosis Routine general medical examination at a health care facility- Primary Mitral valve prolapse Mitral valve disorders Dukes's esophagus with dysplasia Gastroesophageal reflux disease with esophagitis without hemorrhage Essential hypertension (CMS/HCC) Unspecified essential hypertension Mixed hyperlipidemia (CMS/HCC) Mixed hyperlipidemia Anxiety Anxiety state, unspecified Age-related osteoporosis without current pathological fracture (CMS/HCC) Irritation of eyelid [facility] Diagnosis S/P arthroscopy of right shoulder- Primary Internal derangement of right shoulder [facility] Diagnosis Well woman exam with routine gynecological exam Routine gynecological examination Breast cancer screening by mammogram Postmenopausal state Asymptomatic postmenopausal status (age-related) (natural) Stomach pain Dyspepsia and other specified disorders of function of stomach Pelvic pain in female Unspecified symptom associated with female genital organs [facility] Diagnosis S/P arthroscopy of right shoulder- Primary Right shoulder pain, unspecified chronicity documented [facility]* Diagnosis S/P arthroscopy of right shoulder- Primary Right shoulder pain, unspecified chronicity [facility]* Diagnosis S/P arthroscopy of right shoulder- Primary Right shoulder pain, unspecified chronicity [facility] Diagnosis S/P arthroscopy of right shoulder- Primary Right shoulder pain, unspecified chronicity documented [facility] this encounter [facility] Narrative - Reported* Type Description Date Medical History acid reflux Medical History Barretts esophagus Medical History allergies Medical History Panic attacks Surgical History C section Surgical History tonsillectomy Hospitalization History child [facility] Other History of Present illness Narrative* Ms. Echevarria is a 65-year-old female seen [...] or sooner if she has further problems. [facility] [employer] DO Work Phone: History of Present illness [...] medication regimen. She denies medication side effects. [facility] [employer] DO Work Phone: Hospital course Narrative No data available for this section [facility] Hospital Discharge instructions No data available for this section [facility] progress note No data available for this section [facility] reason for referral (narrative)* Consultation (Routine) - Authorized Specialty Diagnoses / Procedures Referred By Octaviano chiang Referred To Contact Cardiology Diagnoses Essential hypertension Palpitations Procedures Follow Up In Cardiology Lacey Damico MD [address] [facility] [address] [place] [address] Lacey Damico MD [address] [facility] [address] [place] [address] Referral ID Status Reason Start Date Expiration Date V isits Requested Visits Authorized [id number] Authorized 05/10/2023 05/09/2024 1 1 [facility] Work Phone: Reason for visit Narrative* Consultation (Routine) - Authorized Specialty Diagnoses / Procedures Referred By Octaviano chiang Referred To Contact Physical Therapy Diagnoses S/P arthroscopy of right shoulder Procedures WA OFFICE/OUTPATIENT NEW HIGH MDM 60 MINUTES Conchis Buneo PA [address] [place] [employer] [facility] [address] [place] [address] Rain Starr PT Referral ID Status Reason Start Date Expiration Date Visits Requested Visits Authorized [id number] Authorized Consult and Treat 02/14/2024 08/12/2024 99 99 [facility] Narrative* Consultation (Routine) - Authorized Specialty Diagnoses / Procedures Referred By Octaviano chiang Referred To Contact Physical Therapy Diagnoses S/P arthroscopy of right shoulder Procedures WA OFFICE/OUTPATIENT NEW HIGH MDM 60 MINUTES Conchis Bueno PA [address] [place] [facility] [address] [place] [address] Phone: tel: fax: Rain Starr, ELVA Referral ID Status Reason Start Date Expiration Date Visits Requested Visits Authorized [id number] Authorized Consult and Treat 02/14/2024 08/12/2024 99 99 [facility] Chief Complaint IVONNE ECHEVARRIA is being seen [...] office follow-up. * She was evaluated by [facility] cardiology for second opinion regarding palpitations. Reports [...] testing. * No caffeine, no alcohol, no dhya-tms-jbhkvte medications or energy drinks. * Encouraged to [...] HIGH MDM 60-74 MINUTES Gasper Hamilton MD [address] [place] [address] Referral ID Status Reason Start Date Expiration Date Visits Requested Visits Authorized [id number] Pending Review PCP Requested Referral 11/28/2021 11/28/2022 [...] or prosecute any alcohol or drug abuse patient.In the event this information is protected by the Federal Confidentiality of Alcohol and Drug Abuse Patient Records regulations: The Federal rules restrict any use of the information to criminally investigate or prosecute any alcohol or drug abuse patient.In the event this information is protected by the Federal Confidentiality of Alcohol and Drug Abuse Patient Records regulations: The Federal rules restrict any use of the information to criminally investigate or prosecute any alcohol or drug abuse patient. Reason for Visit (unrecogniz ed section and content) Reason Comments Follow Up Reason Comments HSAT Check In (Adult) Reason Comments Follow-up 1y Reason Comments Annual Exam Reason Comments Pain Post-op Reason Comments [facility] Women Visit Care Teams (unrecognized sec tion and content) Software Release Manager Relationship Specialty Start Date End Date Conchis Zamora [address] [place] [address] PCP - General Family Practice 05/23/16 Gasper Hamilton MD [address] [place] [address] Primary Staff Physician Cardiology 08/12/21 Software Release Manager Relationship Specialty Start Date End Date Conchis Zamora [address] [place] [address] PCP - General Family Practice 05/23/16 Gasper Hamilton MD [address] [place] [address] Primary Staff Physician Cardiology 08/12/21 Team Status: Active Member Role Status Dates Conchis Zamora DO Primary Care Provider Active Team Status: Inactive Member Role Status Dates Conchis Zamora DO Primary Care Provider Active Fozia Robert MD Emergency Provider Active Software Release Manager Relationship Specialty Start Date End Date Conchis Zamora DO [address] [facility] [address] [place] [address] PCP - General 07/09/99 Software Release Manager Relationship Specialty Start Date End Date Conchis Zamora, DO [address] [place] [address] PCP - Devoted 07/09/22 Conchis Zamora, DO [address] [place] [address] PCP - General Family Medicine 10/12/23 Software Release Manager Relationship Specialty Start Date End Date Conchis Zamora, DO [address] [place] [address] PCP - Devoted 07/09/22 Conchis Zamora, DO [address] [place] [address] PCP - General Family Medicine 10/12/23 Software Release Manager Relationship Specialty Start Date End Date Conchis Zamora, DO [address] [place] [address] PCP - Devoted 07/09/22 Conchis Zamora, DO [address] [place] [address] PCP - General Family Medicine 10/12/23 Software Release Manager Relationship Specialty Start Date End Date Conchis Zamora, DO [address] [place] [address] PCP - Devoted 07/09/22 Conchis Zamora, DO [address] [place] [address] PCP - General Family Medicine 10/12/23 Software Release Manager Relationship Specialty Start Date End Date Conchis Zamora, DO [address] [place] [address] PCP - Devoted 07/09/22 Conchis Zamora, DO [address] [place] [address] PCP - General Family Medicine 10/12/23 Software Release Manager Relationship Specialty Start Date End Date Conchis Zamora, DO [address] [place] [address] PCP - Devoted 07/09/22 Conchis Zamora, DO [address] [place] [address] PCP - General Family Medicine 10/12/23 Software Release Manager Relationship Specialty Start Date End Date Conchis Zamora, DO [address] [place] [address] PCP - Devoted 07/09/22 Conchis Zamora, DO [address] [place] [address] PCP - General Family Medicine 10/12/23 Software Release Manager Relationship Specialty Start Date End Date Conchis Zamora, DO [address] [place] [address] PCP - Devoted 07/09/22 Conchis Zamora, DO [address] [place] [address] PCP - General Family Medicine 10/12/23 Software Release Manager Relationship Specialty Start Date End Date Conchis Zamora, DO [address] [place] [address] PCP - Devoted 07/09/22 Conchis aZmora, DO [address] [place] [address] PCP - General Family Medicine 10/12/23 Software Release Manager Relationship Specialty Start Date End Date Conchis Zamora, DO [address] [place] [address] PCP - Devoted 07/09/22 Conchis Zamora, DO [address] [place] [address] PCP - General Family Medicine 10/12/23 Software Release Manager Relationship Specialty Start Date End Date Conchis Zamora, DO [address] [place] [address] PCP - Devoted 07/09/22 Conchis Zamora, DO [address] [place] [address] PCP - General Family Medicine 10/12/23 Software Release Manager Relationship Specialty Start Date End Date Conchis Zamora, DO [address] [place] [address] PCP - Devoted 07/09/22 Conchis Zamora, DO [address] [place] [address] PCP - General Family Medicine 10/12/23 INFORMATION SOURCE (unrecogn ized section and content) DATE CREATED AUTHOR 10/29/2021 [facility] DATE CREATED AUTHOR AUTHOR'S ORGANIZ ATION 11/10/2021 [facility] dical Specialist DATE CREATED AUTHOR AUTHOR'S ORGANIZ ATION 05/15/2022 [facility] DATE CREATED AUTHOR AUTHOR'S ORGANIZ ATION 05/15/2022 [employer] DATE CREATED AUTHOR AUTHOR'S ORGANIZ ATION 06/05/2022 [facility] DATE CREATED AUTHOR AUTHOR'S ORGANIZ ATION 09/25/2022 [facility] [place] [facility] DATE CREATED AUTHOR AUTHOR'S ORGANIZ ATION 01/22/2023 [facility] DATE CREATED AUTHOR AUTHOR'S ORGANIZ ATION 05/11/2023 [facility] DATE CREATED AUTHOR AUTHOR'S ORGANIZ ATION 04/24/2024 [facility] DATE CREATED AUTHOR AUTHOR'S ORGANIZ ATION 05/05/2024 [facility] dical Specialists EPIC Goals (unrecognized section and content) Goals may [...] BE BASED ON THE PRIMARY CLINICAL RECORDS. [facility] [employer] [facility]. provides no warranty or guarantee of the accuracy or completeness of information in this document.
== END 2024-05-08 11:05 | disposition home or self-care (01) ==
LOC: NOMS 11:05
PROVIDERS: Visit Provider Obstetrics & Gynecology
DX: R10.9 Unspecified abdominal pain (principal); R10.2 Pelvic and perineal pain
CPT/HCPCS: 76830; 76856

== ENCOUNTER 2024-05-19 07:30 | Outpatient (OUT) | payer OTHER, SELFPAY ==
--- NOTE | 2024-05-19 | MM_ITS ---
Patient Name: DENNIS ECHEVARRIA MR#: [id number] : 1955 Exam Date: 05/19/2024 Ordering Doctor: DR Tyler Ervin . RADIOLOGY REPORT PROCEDURE: MM TOMOSYNTHESIS SCREENING BI COMPARISON: MG MAMM SCREEN 3D LUAN CAD, 04/18/2022. MM TOMOSYNTHESIS SCREENING BI, 04/20/2023. INDICATIONS: Screening mammography Calculator Name NCI Breast Cancer Risk Assessment Tool 5 Year Breast Cancer Risk 2.50% Lifetime Breast Cancer Risk 8.50% Personal Breast Cancer No Personal Ovarian Cancer No Treatments None Family Cancers Aunt-paternal with breast cancer at age ~60; Brother with rectal cancer at age 70. LOCATION: [facility] BREAST COMPOSITION: The breasts are extremely dense, which lowers the sensitivity of mammography. FINDINGS: DIAGNOSTIC CATEGORY 2--BENIGN FINDING. NO CHANGE FROM COMPARISON. RIGHT BREAST: No significant suspicious finding. LEFT BREAST: No significant suspicious finding. RECOMMENDATIONS: ROUTINE MAMMOGRAM AND CLINICAL EVALUATION IN 12 MONTHS. PLEASE NOTE: A NORMAL MAMMOGRAM DOES NOT EXCLUDE THE POSSIBILITY OF BREAST CANCER. A CLINICALLY SUSPICIOUS PALPABLE LUMP SHOULD BE BIOPSIED. Dictated by: Tanmay Becerril MD on 05/19/2024 at 09:03 Approved by: Tanmay Becerril MD on 05/19/2024 at 09:04
--- NOTE | 2024-05-19 | XR_ITS ---
The [address] [address] Patient Name: DENNIS ECHEVARRIA MRN: [id number] date: 1955 Sex: F Assigned Patient Location: [facility] Current Patient Location: Accession/Order Number: [id number] Exam Date: 05/19/2024 07:45 Report Date: 05/21/2024 07:18 At the request of: JANESSA CUELLAR Procedure: XR DEXA axial skeleton EXAMINATION: XR DEXA axial skeleton, 05/19/2024 7:45 AM EST HISTORY: Osteoporosis screening COMPARISON: 2021, 2019, 2012 TECHNIQUE: Dual-energy X-ray absorptiometry (DEXA) bone density study performed for the axial skeleton. FINDINGS: Bone mineral density AP spine L2-L4 measures 1.247 g/sq cm. T score 0.4. Normal Lowest bone mineral density right femoral neck measures 0.757 g/sq cm. T score 2.0. Osteopenia XR/XR DEXA axial skeleton IMPRESSION: Osteopenia. Moderate fracture risk Pharmacologic treatment recommendations * No uniform recommendation applies to all patients. Management plans must be individualized. * Consider initiating pharmacologic treatment in postmenopausal women and men >= 50 years of age who have the following: Primary fracture prevention: * T-score <= - 2.5 at the femoral neck, total hip, lumbar spine, 33% radius (some uncertainty with existing data) by DXA. * Low bone mass (osteopenia: T-score between - 1.0 and - 2.5) at the femoral neck or total hip by DXA with a 10-year hip fracture risk >= 3% or a 10-year major osteoporosis-related fracture risk >= 20% (i.e., clinical vertebral, hip, forearm, or proximal humerus) based on the US-adapted FRAXregistered model. Secondary fracture prevention: * Fracture of the hip or vertebra regardless of BMD [4, 5]. * Fracture of proximal humerus, pelvis, or distal forearm in persons with low bone mass (osteopenia: T-score between - 1.0 and - 2.5). The decision to treat should be individualized in persons with a fracture of the proximal humerus, pelvis, or distal forearm who do not have osteopenia or low BMD [12, 13]. Beatriz MS, Becky SL, Robby AGUIRRE, Minerva EM, Teresa KG, Null AJ, Musa ES. The clinician's guide to prevention and treatment of osteoporosis. Osteoporos Int. 2021;33(10):2165-3996. doi: 10.1007/i16553-224-79272-l. Epub 2021Nov 03. Erratum in: Osteoporos Int. 2021Feb 02;: PMID: [id number]; PMCID: [id number]. Electronically authenticated by: GALINA FRAGOSO Date: 05/21/2024 07:18
--- OUTSIDE RECORDS SUMMARY | 2024-05-19 07:33 | XMS_ITS | CCD ---
Author Organization [facility] Care Team Providers Care Supervisor Chassis Assembly Name Role Phone Deisy Zamoratatiana Sheikh Unavailable [phone] Unavailable Unavailable Conchis Zamora Primary Care Provider [...] Admitting Unavailable PETZNICK, CONCHIS Attending Unavailable PETZNICK, [facility] Primary Care Unavailable PETZNICK, CONCHIS Consulting Unavailable FOUZIA, DR GALINA Garrido Admitting Unavailable FOUZIA, DR GALINA Garrido Attending Unavailable PETZNICK, [facility] Primary Care Unavailable PETZNICK, [facility] Primary Care Unavailable HAY ., DR MALIK Admitting Unavailable HAY ., DR MALIK Attending Unavailable ZIEBER, DR BRIAN Haynes Consulting Unavailable GUSTAVO ., DR MALIK Consulting Unavailable AZIZA ., DR RIDDLE Admitting Unavailable AZIZA ., DR RIDDLE Attending Unavailable PETZNICK, [facility] Primary Care Unavailable AZIZA ., DR RIDDLE Consulting Unavailable AZIZA ., DR RIDDLE Admitting Unavailable AZIZA ., DR RIDDLE Attending Unavailable PETZNICK, [facility] Primary Care Unavailable FOUZIA, DR GALINA Garrido Consulting Unavailable AZIZA ., DR RIDDLE Consulting Unavailable ADEBPEDRO, DR BRIAN Haynes Consulting Unavailable Filemon Meléndez Unavailable Petznick, DO Conchis Primary Care Provider [phone] MD Fozia Rboert Emergency Provider Timbo Conchis Primary Care Unavailable Fozia Robert Admitting Unavailable Fozia Robert Attending Unavailable Petjanelle HERNÁNDEZ Conchistatiana Mason Primary Care Provid er Petznick DO, Conchis Sheikh Unavailable [phone] Petjamelarlyn DO, Conchis Kori Primary Care Provider Morgan TILLMAN Attending Unavailable Morgan TILLMAN Attending Unavailable Ludmila Ruff Attending Unavailable Petznick DO, Conchis C Primary Care Provider [phone] LACEY DAMICO Attending Unavailable LACEY DAMICO Referring Unavailable PETJAMELICK, CONCHIS Sheikh Primary Care Unavailable PETCONCHIS GTZ Attending Unavailable PETCONCHIS GTZ Referring Unavailable AGUILA MERCADO Attending Unavailable AGUILA MERCADO Referring Unavailable AGUILA MERCADO Attending Unavailable NATALIA YEAGER Attending Unavailable CONCHIS ZAMORA Referring Unavailable AGUILA MERCADO Referring Unavailable JR. MCCLELLAN GEORGE C Attending Unavaila ble CONCHIS BUENO Attending Unavailable BUENO, CONCHIS Olmedo Attending Unavailable RAIN STARR Attending Unavailable BUENO, CONCHIS J Referring Unavailable SHARA DUMONT Attending Unavailable BUENO, CONCHIS J Referring Unavailable ORLANDO, KRISHAN Attending Unavailable BUENO, CONCHIS J Referring Unavailable RAIN STARR Attending Unavailable BUENO, CONCHIS J Referring Unavailable ORLANDO KRISHAN Attending Unavailable BUENO, CONCHIS J Referring [...] J Referring Unavailable ORLANDO, KRISHAN Attending Unavailable CONCHIS BUENO Referring Unavailable RAIN STARR Attending Unavailable CONCHIS BUENO Referring Unavailable KRISHAN PERRY Attending Unavailable CONCHIS BUENO Referring Unavailable CONCHIS ZAMORA Attending Unavailable KRISHAN PERRY Attending Unavailable JUAN, CONCHIS Olmedo Referring Unavailable JR. MCCLELLAN GEORGE C Attending Unavaila TYLER Vidal Attending Unavailable KRISHAN PERRY Attending Unavailable CONCHIS BUENO Referring Unavailable KRISHAN PERRY Attending Unavailable CONCHIS BUENO Referring Unavailable RAIN STARR Attending Unavailable BUENO, CONCHIS Olmedo Referring Unavailable KRISHAN PERRY Attending Unavailable JUAN, CONCHIS Olmedo Referring Unavailable KRISHAN PERRY Attending Unavailable JUAN, CONCHIS Olmedo Referring Unavailable KRISHAN PERRY Attending Unavailable JUAN, CONCHIS Olmedo Referring Unavailable KRISHAN PERRY Attending Unavailable JUAN, CONCHIS Olmedo Referring Unavailable Allergies Allergy Classification Reported Allergen(s) Allergy Type Date of Onset Reaction(s) Facility (20 sources) Clarithromycin; Translations: [Biaxin] Drug Allergy 7 Intolerance, Unknown [facility] (3 sources) Dog Allergy to substance 2 Itching [facility] (20 sources) Glycerin; Translations: [saliva substitutes] Drug Allergy 3 Diarrhea (finding), Diarrhea [facility] (20 sources) Clarithromycin; Translations: [clarithromycin] Drug Allergy 7 Unknown [facility] Medications Current Medications Medication Drug Class(es) Dates Sig (Normalized) Sig (Original) [id number] 200 actuat albuterol 0.09 mg/actuat metered dose inhaler (20 sources) beta2-Adrenergic Agonist Start: 06-08-2022 albuterol HFA 90 mcg/act inhaler every 6 (six) hours. 06/08/2022 Active biotin 1 mg oral tablet (20 sources) [...] mg by mouth in the morning. Active take 1 tablet by mouth once artie y calcium carbonate 600 mg calcium (1,500 mg) tablet Take 1 tablet (1,500 mg) by mouth once daily. Active calcium carbonate 1500 mg / cholecalciferol 200 unt oral tablet (2 sources) Vitamin D Start: 10-19-2021 take 1 tablet by mouth once daily Calcium Carbonate-Vitamin D3 (Calcium + D) 600 mg-5 mcg (200 unit) Tablet Active 1 TAB PO Daily October 18, 2021 11:00pm Co Q 10 (5 sources) Co Q 10 Active Co Q-10 (7 sources) Start: 09-18-2017 take 200 mg by mouth once daily Co Q-10 200 mg, Oral, Daily, Refills(s) 0, Prophylaxis Start Date: 09/18/17 Status: Ordered estradiol 0.1 mg/ml vaginal cream (20 sources) Estrogen Start: 05-12-2023 Estrace 0.1 mg /g Cream 1 gm, Vaginal, MonFri, 42.5 gm, Refill(s) 11, apply 1 gram 2x a week, [facility]/pharmacy #[id number], 157, cm, 01/15/23 9:07:00 EDT, Height/Length Dosing, 65, kg, 01/15/23 9:07:00 EDT, Weight Dosing Start Date: 05/12/23 Status: Ordered Start: 12-30-2022 estradiol (Est race) 0.1 MG/GM vaginal cream APPLY 1 GRAM VAGINALLY TWICE A WEEK (SUNDAY & SUNDAY) 12/30/2022 Active Start: 10-19-2021 Estradiol Acti ve 1 APPLICATOR VAGINAL Twice a Week October 18, 2021 11:00pm Start: 03-28-2021 estradiol (EST RACE) 0.01 % (0.1 mg/gram) vaginal cream Use 1 g vaginally two times a week. 0 03/28/2021 Active Start: 03-28-2021 estradiol 0.1 mg/g vaginal cream 1 gram, Vaginal, MonFri, apply 1gram 2x a week, # 42.5 gm, Refills(s) 7, Pharmacy: [facility] ([place]), 157, cm, 03/28/21 10:13:00 EDT, Height/Length Dosing, 67, kg, 03/28/21 10:13:00 EDT, Weight Dosing Start Date: 03/28/21 Status: Ordered estradiol (Estra ce) 0.01 % (0.1 mg/gram) vaginal cream Insert 0.25 Applicatorfuls (1 g) into the vagina 2 times a week. Active Comment on above: Use 1 g vaginally tw o times a week. estradiol 0.1 mg/g vaginal cream (6 sources) Start: 05-02-2022 estradiol 0.1 mg/g vaginal cream 1 gram, Vaginal, MonFri, apply 1gram 2x a week, # 42.5 gm, Refills(s) 7, Pharmacy: [facility]/pharmacy #[id number], 157, cm, 01/20/22 8:35:00 EDT, Height/Length Dosing, 67, kg, 01/20/22 8:35:00 EDT, Weight Dosing Start Date: 05/02/22 Status: Ordered Start: 03-28-2021 estradiol 0.1 mg/g vaginal cream 1 gram, Vaginal, MonFri, apply 1gram 2x a week, # 42.5 gm, Refills(s) 7, Pharmacy: [facility]), 157, cm, 03/28/21 10:13:00 EDT, Height/Length Dosing, 67, kg, 03/28/21 10:13:00 EDT, Weight Dosing Start Date: 03/28/21 Status: Ordered hydroCHLOROthiazide 25 mg / triamterene 37.5 mg oral tablet (2 sources) Potassium-sparing Diuretic, Thiazide Diuretic Start: 05-12-2024 End: 05-12-2025 take 1 tablet by mouth once daily Triamterene-Hydrochlorothiazid Active 1 TAB PO Daily May 14, 2024 12:00am hydrocortisone acetate 25 mg rectal suppository (1 source) Corticosteroid Start: 12-09-2020 take 25 mg rectal route at bedtime hydrocortisone 25 mg rectal suppository 25 mg = 1 supp, Rectal, Bedtime, # 36 supp, Refills(s) 1, Pharmacy: [facility]), 157.5, cm, 09/01/20 14:14:00 EST, Height/Length Dosing, 67.2, kg, 09/01/20 14:14:00 EST, Weight Dosing Start Date: 12/09/20 Status: Ordered hydrocortisone 25 mg rectal suppository (3 sources) Start: 12-09-2020 take 25 mg rectal route at bedtime hydrocortisone 25 mg rectal suppository 25 mg = 1 supp, Rectal, Bedtime, # 36 supp, Refills(s) 1, Pharmacy: [facility] ([place]), 157.5, cm, 09/01/20 14:14:00 EST, Height/Length Dosing, [...] OF THE DAY. 12 tablet 02/14/2024 Active Start: 02-14-2024 ibandronate (B oniva) 150 mg tablet 1 tablet (150 mg) every 30 (thirty) days. 02/14/2024 Active latanoprost 0.05 mg/ml ophthalmic solution (20 sources) Prostaglandin Analog Start: 05-14-[address] Active DROPS OPHTHALMIC May 14, 2024 12:00am Start: 11-14-2022 take 1 drop(s) into the eye(s) at bedtime latanoprost (Xalatan) 0.005 % ophthalmic solution Administer 1 drop into both eyes at bedtime. 11/14/2022 Active LORazepam 1 mg oral tablet (20 sources) Benzodiazepine Start: 10-23-2023 LORazepam (Ati van) 1 MG tablet Indications: Anxiety Take 1 tablet (1 mg) by mouth See administration instructions for 10 days 1 by mouth 1 hour prior to MRI 1 tablet 10/23/2023 Active meclizine hydrochloride 25 mg oral tablet (5 sources) Antiemetic Start: 01-15-2023 meclizine 25 m g Tab Refills(s) 0 Start Date: 01/15/23 Status: Ordered Start: 01-07-2023 End: 05-14-2024 meclizine 25 mg Tab Refills( s) 0 Start Date: 01/15/23 Status: Ordered metoprolol tartrate 50 mg oral tablet (20 sources) beta-Adrenergic Sebastien Start: 05-14-2024 take 50 mg by mouth once daily Metoprolol Succinate Active 50 MG PO Daily May 14, 2024 12:00am Start: 05-12-2024 End: 05-12-2025 take 1 tablet by mouth once daily metoprolol succinate XL (Toprol-XL) 50 mg 24 hr tablet Indications: Essential hypertension Take 1 tablet (50 mg) by mouth once daily. Do not crush or chew. 90 tablet 3 05/12/2024 05/12/2025 Active Start: 04-02-2024 take 1 tablet by quang th every twenty-four hours, then take 0.5 tablet by mouth once daily metoprolol succinate XL (Toprol-XL) 25 MG 24 hr tablet Indications: Primary hypertension (CMS/HCC) TAKE 1 AND 1/2 TABLETS DAILY BY MOUTH EVERY DAY 135 tablet 04/02/2024 Active Start: 09-22-2021 End: 05-14-2024 Metoprolol Succinate Discont inued 25 MG PO October 18, 2021 11:00pm May 14, 2024 1:30pm End: 05-12-2024 take 1.5 tablets by mouth once daily metoprolol succinate XL (Toprol XL) 25 mg 24 hr tablet Take 1.5 tablets (37.5 mg) by mouth once daily. 05/12/2024 Discontinued (Dose adjustment) take 1 tablet by quang th every [...] tablet (20 sources) Leukotriene Receptor Antagonist Start: 3 take 1 tablet by mouth once daily montelukast (Singulair) 10 MG tablet Indications: Wheezing TAKE 1 TABLET BY MOUTH EVERY DAY 90 tablet 1 06/25/2023 Active Multiple Vitamins Tab (7 sources) Start: 8 take 1 tablet by mouth once daily Multiple Vitamins Tab 1 tab(s), Oral, Daily, Refill(s) 0, Prophylaxis Start Date: 09/18/17 Status: Ordered Bhfmzzen-Hok-Jxoyy Acid-Vit K (Multi For Her 50 Plus) 400-80 mcg Capsule (2 sources) Start: take 50-400 capsules by mouth once daily Tgrewqfh-Sug-Ovxal Acid-Vit K (Multi For Her 50 Plus) 400-80 mcg Capsule Active 1 CAP PO Daily September 16, 2018 11:00pm Start: 09-17-2018 take 50-400 capsules by mouth once daily Yavnzuwu-Exp-Qzvsb Acid-Vit K (Multi For Her 50 Plus) 400-80 mcg Capsule Active 1 CAP PO Daily September 17, 2018 12:00am multivit-min/ferrous fumarat e (MULTI VITAMIN ORAL) (2 sources) take 1 tablet by mouth once daily multivit-min/ferrous fumarate (MULTI VITAMIN ORAL) Take 1 tablet by mouth once daily. Active take 1 tablet by mouth once artie y multivit-min/ferrous fumarate (MULTI VITAMIN ORAL) Take 1 tablet by mouth once daily. 0 Active Multivitamins (5 sources) Multivitamins Or ally Active nitrofurantoin, macrocrystals 25 mg / nitrofurantoin, monohydrate 75 mg oral capsule (1 source) Nitrofuran Antibacterial Start: 09-12-19 End: 09-17-19 take 1 capsule by mouth twice daily Macrobid 100 mg Cap 100 mg = 1 cap(s), Oral, BID, X 5 day(s), # 10 cap(s), Refills(s) 0, Pharmacy: [facility]/pharmacy #[id number], 157, cm, 01/20/22 8:35:00 EDT, Height/Length Dosing, 67, kg, 01/20/22 8:35:00 EDT, Weight Dosing Start Date: 09/11/22 Stop Date: 09/16/22 Status: Ordered ondansetron 4 mg disintegrating oral tablet (5 sources) Serotonin-3 Receptor Antagonist Start: 01-16-20 ondansetron 4 mg Dis Tab Refills(s) 0 Start Date: 01/15/23 Status: Ordered Start: 01-07-2023 End: 05-14-2024 Ondansetron Discontinued 4 M G PO every 6 to 8 hours January 06, 2023 11:00pm May 14, 2024 1:29pm pantoprazole 40 mg delayed release oral tablet (20 sources) Proton Pump Inhibitor Start: 05-12-2020 take 1 tablet by mouth once daily pantoprazole 40 mg Oral EC Tab 40 mg = 1 tab(s), Oral, Daily, # 10 tab(s), Refills(s) 0, Pharmacy: [facility]/pharmacy #[id number], 157.5, cm, 02/25/20 15:53:00 EDT, Height/Length Dosing, 65, kg, 02/25/20 15:53:00 EDT, Weight Dosing Start Date: 05/12/20 Status: Ordered Start: 09-17-2018 End: 05-14-2024 take 40 mg by mouth once daily in the morning Pantoprazole Active 40 MG PO Every morning May 14, 2024 1:38pm Comment on above: Take 40 mg by mouth once daily. PARoxetine hydrochloride 20 mg oral tablet (20 sources) Serotonin Reuptake Inhibitor Start: 9 take 1 tablet by mouth once daily PARoxetine (Paxil) 20 MG tablet Indications: Anxiety TAKE 1 TABLET BY MOUTH DAILY 90 tablet 02/29/2024 Active Start: 09-18-2017 take 20 mg by mouth once daily Paxil 20 mg, Oral, Daily, Refills(s) 0, Depression Start Date: 09/18/17 Status: Ordered take 1 tablet by quang th once daily PARoxetine (PAXIL) 10 mg tablet Take 10 mg by mouth once daily. 0 Active Comment on above: Take 10 mg by mouth once daily. psyllium 3400 mg powder for oral suspension (6 sources) Start: 05-14-2024 End: 05-14-2024 Psyllium Husk (Metamucil) 3.4 gram/5.4 gram powder Active 2 TSP PO Daily May 14, 2024 1:37pm mix into at least 8 oz of water or juice before administering Start: 09-01-2020 take 8 capsules by m outh once daily Metamucil 525 mg oral capsule 2,625 mg = 5 cap(s), Oral, qPM, Take 2 hour apart from the other medications with at least 8 ounces of water, # 160 cap(s), Refills(s) 4, Pharmacy: [facility]/pharmacy #[id number], 157.5, cm, 09/01/20 14:14:00 EST, Height/Length Dosing, 67.2, kg, 09/01/20 14:14:... Start Date: 09/01/20 Status: Ordered rosuvastatin calcium 20 mg oral tablet (20 sources) HMG-CoA Reductase Inhibitor Start: 05-12-2024 End: 05-12-2025 take 20 mg by mouth once daily Rosuvastatin Active 20 MG PO Daily May 14, 2024 12:00am Start: 08-15-2021 End: 05-12-2024 take 1 tablet by mouth in the morning rosuvastatin (Crestor) 10 MG tablet Indications: Hyperlipidemia, unspecified hyperlipidemia type (CMS/HCC) Take 1 tablet (10 mg) by mouth in the morning. 90 tablet 2 02/22/2023 Active Start: 09-17-2018 End: 05-14-2024 Rosuvastatin (Crestor) 10 mg Tablet Discontinued 10 MG PO Q48H September 16, 2018 11:00pm May 14, 2024 1:29pm Every other day Start: 09-18-2017 take 10 mg by mouth once daily at bedtime Crestor 10 mg, Oral, Once a day (at bedtime), Refills(s) 0, High cholesterol Start Date: 09/18/17 Status: Ordered take 1 tablet by quang once daily rosuvastatin (CRESTOR) 5 mg tablet [...] mg/ml topical cream (4 sources) Corticosteroid Start: 024 End: 024 triamcinolone (Kenalog) 0.1 % cream Indications: Irritation of eyelid Apply topically 2 (two) times a day for 7 days 45 g 1 04/14/2024 04/21/2024 Active ubidecarenone 100 mg oral capsule (12 sources) Start: 019 Coenzyme Q10 (Co Q-10) 100 mg Capsule Active 200 MG PO Daily September 16, 2018 11:00pm take 1 capsule by mouth once farida ly coenzyme Q-10 200 mg capsule Take 1 capsule (200 mg) by mouth once daily. Active ubidecarenone 100 mg / vitam in e 5 unt oral capsule (20 sources) coenzyme Q-10 10 0 MG capsule 1 (one) time each day at the same time. Active Completed/Discontinued Medications Medication Drug Class(es) Dates Sig (Normalized) Sig (Original) aspirin 81 mg delayed release oral tablet (20 sources) Platelet Aggregation Inhibitor, Nonsteroidal Anti-inflammatory Drug Start: 09-17-2018 End: 05-14-2024 take 1 tablet by mouth once daily Aspirin (Aspirin Low Dose) 81 mg Tablet,Delayed Release (Dr/Ec) Discontinued 81 MG PO Daily September 16, 2018 11:00pm May 14, 2024 1:31pm Start: 09-18-2017 take 81 mg by mouth once daily aspirin 81 mg, Oral, Daily, Refills(s) 0, Prophylaxis Start Date: 09/18/17 Status: Ordered Comment on above: Take 81 mg by mouth once daily. bisoprolol fumarate 5 mg oral tablet (16 sources) beta-Adrenergic Sebastien Start: 8 End: 2 take 5 mg by mouth once daily at bedtime Bisoprolol Fumarate Discontinued 5 MG PO Daily at bedtime September 16, 2018 11:00pm October 19, 2021 6:13am Calcium Carbonate / vitamin D3 (3 sources) take 1 tablet by mouth once daily calcium carbonate/vitamin D3 (CALCIUM 600 + D,3, ORAL) Take 1 tablet by mouth once daily. Calcium 600 mg D3 800 IU 0 Active Comment on above: Take 1 tablet by quang th once daily. Calcium 600 mg D3 800 IU estrogens, conjugated ([facility]) 0.625 mg/ml vaginal cream (2 sources) Estrogen Start: 9 End: 2 Conjugated Estrogens (Premarin) 0.625 mg/gram Cream Discontinued 1 APPLICATOR VAGINAL Twice a Week September 16, 2018 11:00pm October 19, 2021 6:32am furosemide 20 mg oral tablet (2 sources) Loop Diuretic Start: 9 End: 2 take 20 mg by mouth once daily Furosemide Discontinued 20 MG PO Daily September 16, 2018 11:00pm October 19, 2021 6:32am lutein 20 mg / zeaxanthin 1 mg oral capsule (2 sources) Start: 9 End: 2 take 1 capsule by mouth once daily Lutein-Zeaxanthin Discontinued 1 CAP PO Daily September 16, 2018 11:00pm October 19, 2021 6:32am magnesium oxide 400 mg oral tablet (6 sources) Start: 1 take 1 tablet by mouth once daily [...] 1 tablet by quang th once daily. polyethylene glycol 3350 15279 mg powder for oral solution (20 sources) Osmotic Laxative Start: 1 End: 4 Polyethylene Glycol 3350 (Miralax) 17 gram Powder In Packet Discontinued 17 GM PO Daily October 18, 2021 11:00pm May 14, 2024 1:29pm Polyethylene Glycols (3 sources) polyethylene gly col 3350 (MIRALAX ORAL) Take by mouth once daily. 0 Active Comment on above: Take by mouth once d aily. UBIDECARENONE (CO Q-10 ORAL) (3 sources) take 200 mg by mouth once daily UBIDECARENONE (CO Q-10 ORAL) Take 200 mg by mouth once daily. 0 Active Comment on above: Take 200 mg by mouth once daily. Zinc (5 sources) Start: 2 End: 4 take 50 mg by mouth once daily Zinc Discontinued 50 MG PO Daily October 18, 2021 11:00pm May 14, 2024 1:29pm Start: 10-19-2021 take 50 mg by mouth once daily Zinc Active 50 MG PO Daily October 19, 2021 12:00am take 1 tablet by mouth once artie y Zinc 50 mg tab Take 50 mg by mouth once daily. 0 Active Comment on above: Take 50 mg by mouth once daily. 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] Onset: 04-17-2022 Episodic Other aftercare (1 source) Treatment changed; Translations: [Other salvage determiner (current) drug therapy] 05-12-2024 Episodic Other diseases of bladder and urethra (7 sources) Urethral stricture 03-28-2021 Episodic Other eye disorders (2 sources) Disorder of eyelid; Translations: [Other specified disorders of eyelid] 04-14-2024 Episodic Other gastrointestinal disorders (6 sources) Constipation; Translations: [Constipation, unspecified] 05-14-2024 Episodic Other gastrointestinal disorders (4 sources) Constipation, unspecified; Translations: [Constipation, unspecified] Onset: 08-16-2021 Resolved: 08-16-2021 Episodic Other non-traumatic joint disorders (4 sources) Derangement of right shoulder joint; Translations: [Other specific joint derangements of right shoulder, not elsewhere classified] 04-23-2024 Chronic Other non-traumatic joint disorders (10 sources) Pain in right shoulder; Translations: [Pain [...] [Sleep apnea, unspecified] Chronic Residual codes; unclassified (14 sources) History of arthroscopic procedure on shoulder; Translations: [Other specified postprocedural states] 04-10-2024 Episodic Residual codes; unclassified (19 sources) Postmenopausal state; Translations: [Asymptomatic menopausal state] [...] giddiness] Onset: 01-07-2023 Resolved: 07-11-2023 01-07-2023 Episodic Genitourinary symptoms and [...] 07-11-2023 07-11-2023 Chronic Other aftercare (1 source) salvage determiner (current) use of aspirin; Translations: [[facility] CURRENT USE OF ASPIRIN] Onset: 04-17-2022 Episodic Other bone disease and [...] W/AND (SUSP) EXPOS COVID-19] Onset: 08-04-2022 Unclassified (2 sources) Onset: 05-10-2023 Resolved: 05-12-2024 05-10-2023 Results Test Name Value Interpretation Reference Range Facility IGP,APTIMA HPV,AGE GDLNon AGE GDLN ACOG TESTING Note . [facility] Comment on above: TESTS RESULT FLAG UN ITS REF RANGE LAB Clinician Provided Cytology Information Source.............Cervix;Endocervix No. of containers..01 ThinPrep Vial Age Patriciao LUIZOG Charleen... Note 01 <21 or >65 or no age provided FLAG LEGEND: L-Low Normal,H-High Normal,LL-Alert Low,HH-Alert High <-Panic Low,>-Panic High,A-Abnormal,AA-Critical Abnormal Performed at: 01 [facility] [address] [facility] [place] [address] Lori Joaquin MD, PAP IG (IMAGE GUIDED) Note . [facility] Comment on above: TESTS RESULT FLAG UN ITS REF RANGE LAB DIAGNOSIS: 02 NEGATIVE FOR INTRAEPITHELIAL LESION OR MALIGNANCY. THIS SPECIMEN WAS RESCREENED PART OF OUR MATERNITY NURSE PROGRAM. Specimen adequacy: 02 Satisfactory for evaluation. Endocervical and/or squamous metaplastic cells (endocervical component) are present. Performed by: 02 Leola Powell, Investigative Writer (ASC) QC reviewed by: 02 Ana Maria Schaffer, Investigative Writer (ASC) . 02 Note: Note 02 The [...] <-Panic Low,>-Panic High,A-Abnormal,AA-Critical Abnormal Performed at: [address] [id number] Lori Joaquin MD, Performed at: =[facility] [id number] Secretary Receptionist: Lori Joaquin MD, Phone: [phone] Performed at: [address] [id number] Secretary Receptionist: Lori Joaquin MD, Phone: [phone] BRUSH-SPATULA CERVIX ENDOCERVIX [facility] Urinalysis macro (dipstick) panel (U)on 04-24-2024 Bilirubin, UA Negative Negative - 4(70) +++ mg/dL [facility] Blood, UA Negative Negative - 50 Zheng/mcL [facility] Clarity, UA Clear [facility] Color, UA Yellow [facility] Glucose, UA Negative Negative - 2000(110) ++++ mg/dL [facility] Interpretation and review of laboratory results Normal [facility] Ketones, UA Negative Negative - 160(16) ++++ mg/dL [facility] Leukocytes, UA Negative Negative - 500+++ Ilene/mcL [facility] Nitrite, UA Negative Negative - Positive [facility] pH, UA 6.5 5 - 9 [facility] Protein, UA Negative Negative - 1999(20) ++++ mg/dL [facility] Spec Grav, UA 1.02 1 - 1.03 [facility] Urobilinogen, UA 1.0 0.2 - 12 mg/dL [facility] Ambulatory Visit Summaryon 1 Ambulatory Visit Summary Ambulatory Visit Summary IVONNE ECHEVARRAI :1955 Visit Date:04/22/2024 Ambulatory Visit Instructions Your [...] Morgan TILLMAN MD Where: [facility] [address] [place] [address]- You Need to Schedule the Following Appointments Follow Up with Morgan TILLMAN MD, URL When: Comments: IO UD Where: [facility] [place] [address]- Medications What How Much When Instructions Unchanged [...] this co (more content not included)... Normal [facility] Urology Office/Clinic Noteon 04-22-2024 Urology Office/Clinic [...] with voice recognition artificial intelligence software, specifically [employer] and or [employer]. Substitutions may have occurred due to the [...] Urnls Dip Stick Auto w/o Microscopy POC 99909 2. Chronic cystitis (N30.20: Other chronic cystitis [...] Urnls Dip Stick Auto w/o Microscopy POC 04337 3. Feeling of incomplete bladder emptying (R39.14: Feeling of incomplete bladder emptying) Occasional PVR today 0 -cont to monitor Ordered: [id number] Measure Post Void residual urine and/or bladder capacity by US- non-imaging Follow-up With When Contact Information PRIMO GRUBER, Morgan Haynes, URL [address] [place], [place] [id number]- Additional Instructions: IO UD Patient Education Urethral [...] Recorded SARS-CoV- (more content not included)... Normal [facility] Comment on above: Result Comment: Elec tronically Signed By: EDGAR Ruff APRN, Aurora X\.goran\Date and Time Signed: 04/22/24 09:55 EDT [facility] SH[facility]OULDER RIGHT WO IV CONTRAST [...] Comment: MRI R T shoulder w/o at [facility]. Orbits if needed. US LOWER EXTREMITY [...] scraping studyOrdered By: Chantelle Carbone on 04-11-2023 [facility] Alanine aminotransferase [En zymatic activity/volume] in Serum or PlasmaOrdered By: Fozia Robert on 01-07-2023 ALT [Catalytic activity/Vol] 15 U/L 7-52 [facility] Albumin [Mass/volume] in Ser um or Plasma by Bromocresol green (BCG) dye binding methoOrdered By: Fozia Robert on 01-07-2023 Albumin BCG dye [Mass/Vol] 4.4 g/dL 3.5-5.7 [facility] Alkaline phosphatase [Enzyma tic activity/volume] in Serum or PlasmaOrdered By: Fozia Robert on 01-07-2023 ALP [Catalytic activity/Vol] 51 U/L 34-104 [facility] Aspartate aminotransferase [ Enzymatic activity/volume] in Serum or PlasmaOrdered By: Fozia Robert on 01-07-2023 AST [Catalytic activity/Vol] 22 U/L 13-39 [facility] Basophils Auto (Bld) [#/Vol] Ordered By: Fozia Robert on 01-07-2023 Basophils (Bld) [#/Vol] 0.1 10*3/uL 0.0-0.2 [facility] Basophils/100 WBC Auto (Bld) Ordered By: Fozia Robert on 01-07-2023 Basophils/100 WBC (Bld) 1.5 % . [facility] Bilirubin.total [Mass/volume ] in Serum or PlasmaOrdered By: Fozia Robert on 01-07-2023 Bilirubin [Mass/Vol] 0.5 mg/dL 0.3-1.0 [facility] CT head/brain wo conon 01-07 CT head/brain wo con [facility] [address] CT Scan Report Signed Patient: Ivonne Echevarria MR#: [id number] : 1955 Acct:[id number] Age/Sex: 67 / F ADM Date: 01/07/23 Loc: ER Room: Type: [facility] ER Attending Dr: Copies to: Fozia Robert [...] Devendra Jones M.D.01/07/2023 1:28 PM Dictation Location: [place] [address] Transcribed By: [facility] 01/07/23 1328 Dictated By: Devendra Jones DO 01/07/23 1325 Signed By: 01/07/23 1328 Normal [facility] Calcium [Mass/volume] in Ser um or PlasmaOrdered By: Fozia Robert on 01-07-2023 Calcium [Mass/Vol] 9.4 mg/dL 8.6-10.3 [facility] Carbon dioxide, total [Moles /volume] in Serum or PlasmaOrdered By: Fozia Robert on 01-07-2023 CO2 [Moles/Vol] 31.4 mmol/L 21.0-31.0 [facility] Chloride [Moles/volume] in S manuela or PlasmaOrdered By: Fozia Robert on 01-07-2023 Chloride [Moles/Vol] 104 mmol/L 98-107 [facility] Complete Blood Count Auto Di ffon 01-07-2023 Basophils (Bld) [#/Vol] 0.1 10*3/uL Normal 0.0-0.2 [facility] Comment on above: Result Comment: PERF ORMED BY: [place] [address] PATHOLOGIST EMPLOYMENT AND CLAIMS AIDE AYANNA MARADIAGA M.D. Performed By: #### C BC, HS TROP, CMP, CK #### [facility] [address] [place] [address] [place] Basophils/100 WBC (Bld) 1.5 % Normal . [facility] Comment on above: Performed By: #### C BC, HS TROP, CMP, CK #### [facility] [address] [place] [id number] [place] Eosinophils (Bld) [#/Vol] 0.3 10*3/uL Normal 0.0-0.45 [facility] Comment on above: Performed By: #### C BC, HS TROP, CMP, CK #### [facility] [address] [place] [address] [place] Eosinophils/100 WBC (Bld) 6.3 % Normal . [facility] Comment on above: Performed By: #### C BC, HS TROP, CMP, CK #### [address] Erythrocyte distribution width (RBC) [Ratio] 13.5 % Normal 11.9-15.3 [facility] Comment on above: Performed By: #### C BC, HS TROP, CMP, CK #### [address] Hematocrit (Bld) [Volume fraction] 41.1 % Normal 34.0-46.4 [facility] Comment on above: Performed By: #### C BC, HS TROP, CMP, CK #### [address] Hemoglobin (Bld) [Mass/Vol] 14.3 g/dL Normal 11.8-15.4 [facility] Comment on above: Performed By: #### C BC, HS TROP, CMP, CK #### [address] Lymphocytes (Bld) [#/Vol] 1.4 10*3/uL Normal 1.00-4.8 [facility] Comment on above: Performed By: #### C BC, HS TROP, CMP, CK #### [address] Lymphocytes/100 WBC (Bld) 26.9 % Normal . [facility] Comment on above: Performed By: #### C BC, HS TROP, CMP, CK #### [address] MCH (RBC) [Entitic mass] 30.1 pg Normal 24.7-34.3 [facility] Comment on above: Performed By: #### C BC, HS TROP, CMP, CK #### [address] MCV (RBC) [Entitic vol] 86.8 fL Normal 80-100 [facility] Comment on above: Performed By: #### C BC, HS TROP, CMP, CK #### [place] [id number] [place] Mean Corpuscular HGB Conc 34.7 g/dL Normal 32.0-35.0 [facility] Comment on above: Performed By: #### C BC, HS TROP, CMP, CK #### [facility] [address] Monocytes (Bld) [#/Vol] 0.4 10*3/uL Normal 0.0-0.8 [facility] Comment on above: Performed By: #### C BC, HS TROP, CMP, CK #### [facility] [address] Monocytes/100 WBC (Bld) 15.51 % Normal 0.00-20.00 [facility] Comment on above: Performed By: #### C BC, HS TROP, CMP, CK #### [address] Monocytes/100 WBC (Bld) 8.6 % Normal . [facility] Comment on above: Performed By: #### C BC, HS TROP, CMP, CK #### [facility] [address] Neutrophils (Bld) [#/Vol] 2.9 10*3/uL Normal 1.8-7.7 [facility] Comment on above: Performed By: #### C BC, HS TROP, CMP, CK #### [place] [address] [place] Neutrophils/100 WBC (Bld) 56.7 % Normal . [facility] Comment on above: Performed By: #### C BC, HS TROP, CMP, CK #### [facility] [address] [place] [address] [place] NRBC% 0.1 /100{WBC} Normal 0-0.5 [facility] Comment on above: Performed By: #### C BC, HS TROP, CMP, CK #### [facility] [address] Platelet mean volume (Bld) [Entitic vol] 6.9 fL Normal 6.3-10.7 [facility] Comment on above: Performed By: #### C BC, HS TROP, CMP, CK #### [facility] [address] Platelets (Bld) [#/Vol] 325 10*3/uL Normal 150-450 [facility] Comment on above: Performed By: #### C BC, HS TROP, CMP, CK #### [facility] [address] RBC (Bld) [#/Vol] 4.74 10*6/uL Normal 3.60-5.00 [facility] Comment on above: Performed By: #### C BC, HS TROP, CMP, CK #### [facility] [address] WBC (Bld) [#/Vol] 5.1 10*3/uL Normal 3.8-11.6 [facility] Comment on above: Performed By: #### C BC, HS TROP, CMP, CK #### [address] Comprehensive Metabolic Pane shalom 01-07-2023 Albumin [Mass/Vol] 4.4 g/dL Normal 3.5-5.7 [facility] Comment on above: Performed By: #### C BC, HS TROP, CMP, CK #### [address] Albumin/Globulin [Mass ratio] 1.6 {ratio} Normal [facility] Comment on above: Performed By: #### C BC, HS TROP, CMP, CK #### [address] ALP [Catalytic activity/Vol] 51 U/L Normal 34-104 [facility] Comment on above: Performed By: #### C BC, HS TROP, CMP, CK #### [address] ALT [Catalytic activity/Vol] 15 U/L Normal 7-52 [facility] Comment on above: Performed By: #### C BC, HS TROP, CMP, CK #### [address] [place] [address] [place] Anion gap [Moles/Vol] 8.8 mmol/L Normal 6.0-15.0 [facility] Comment on above: Performed By: #### C BC, HS TROP, CMP, CK #### [facility] [address] AST [Catalytic activity/Vol] 22 U/L Normal 13-39 [facility] Comment on above: Performed By: #### C BC, HS TROP, CMP, CK #### [facility] [address] Bilirubin [Mass/Vol] 0.5 mg/dL Normal 0.3-1.0 [facility] Comment on above: Performed By: #### C BC, HS TROP, CMP, CK #### [facility] [address] Calcium [Mass/Vol] 9.4 mg/dL Normal 8.6-10.3 [facility] Comment on above: Performed By: #### C BC, HS TROP, CMP, CK #### [facility] [address] Chloride [Moles/Vol] 104 mmol/L Normal 98-107 [facility] Comment on above: Performed By: #### C BC, HS TROP, CMP, CK #### [facility] [address] CO2 [Moles/Vol] 31.4 mmol/L High 21.0-31.0 [facility] Comment on above: Performed By: #### C BC, HS TROP, CMP, CK #### [facility] [address] [place] [address] [place] Creatinine [Mass/Vol] 0.84 mg/dL Normal 0.60-1.20 [facility] Comment on above: Performed By: #### C BC, HS TROP, CMP, CK #### [facility] [address] [place] [address] [place] Creatinine Clr Calc Pharmacy 59.57 Normal [facility] Comment on above: Result Comment: PERF ORMED BY: [place] [address] PATHOLOGIST EMPLOYMENT AND CLAIMS AIDE AYANNA MARADIAGA M.D. Performed By: #### C BC, HS TROP, CMP, CK #### [address] GFR/1.73 sq M.predicted MDRD (S/P/Bld) [Vol rate/Area] mL/min/{1.73_m2} [facility] Comment on above: Performed By: #### C BC, HS TROP, CMP, CK #### [address] Globulin (S) [Mass/Vol] 2.8 g/dL Normal [facility] Comment on above: Performed By: #### C BC, HS TROP, CMP, CK #### [address] Glucose [Mass/Vol] 91 mg/dL Normal 70-100 [facility] Comment on above: Result Comment: [place] Glucose Reference Range is dependent on time and content of last meal. Glucose of more than 200 mg/dL in a nonstressed, ambulatory subject supports the diagnosis of Diabetes Mellitus. ADA recommended reference range Performed By: #### C BC, HS TROP, CMP, CK #### [address] Potassium [Moles/Vol] 4.2 mmol/L Normal 3.5-5.1 [facility] Comment on above: Performed By: #### C BC, HS TROP, CMP, CK #### [place] [address] [place] Protein [Mass/Vol] 7.2 g/dL Normal 6.4-8.9 [facility] Comment on above: Performed By: #### C BC, HS TROP, CMP, CK #### [address] Sodium [Moles/Vol] 140 mmol/L Normal 136-145 [facility] Comment on above: Performed By: #### C BC, HS TROP, CMP, CK #### [facility] [address] [place] [address] [place] Urea nitrogen [Mass/Vol] 14 mg/dL Normal 7-25 [facility] Comment on above: Performed By: #### C BC, HS TROP, CMP, CK #### [facility] [address] [place] [address] [place] Creatine Kinaseon 01-07-2023 CK [Catalytic activity/Vol] 131 U/L Normal 30- [facility] Comment on above: Performed By: #### C BC, HS TROP, CMP, CK #### [facility] [address] [place] [address] [facility] Creatine kinase [Enzymatic a ctivity/volume] in Serum or PlasmaOrdered By: Fozia Robert on 01-07-2023 CK [Catalytic activity/Vol] 131 U/L 30- [facility] Creatinine [Mass/volume] in Serum or PlasmaOrdered By: Fozia Robert on 01-07-2023 Creatinine [Mass/Vol] 0.84 mg/dL 0.60-1.20 [facility] ECG 12 lead ECGon 01-07-2023 ECG 12 lead ECG [facility] Main [place] [address] [place] [address] Electrocardiograph Report Signed Patient: Ivonne Echevarria MR#: [id number] : 1955 Acct:[id number] Age/Sex: 67 / F ADM Date: 01/07/23 Loc: ER Room: Type: [facility] ER Attending Dr: Ordering Provider: Fozia [...] By Fozia Robert MD 01/07/23 1554 Normal [facility] Eosinophils Auto (Bld) [#/Vo l]Ordered By: Fozia Robert on 01-07-2023 Eosinophils (Bld) [#/Vol] 0.3 10*3/uL 0.0-0.45 [facility] Eosinophils/100 WBC Auto (Bl d)Ordered By: Fozia Robert on 01-07-2023 Eosinophils/100 WBC (Bld) 6.3 % . [facility] Erythrocyte distribution wid th Auto (RBC) [Ratio]Ordered By: Fozia Robert on 01-07-2023 Erythrocyte distribution width (RBC) [Ratio] 13.5 % 11.9-15.3 [facility] Globulin Calc (S) [Mass/Vol] Ordered By: Fozia Robert on 01-07-2023 Globulin (S) [Mass/Vol] 2.8 g/dL [facility] Glucose [Mass/volume] in Ser um or PlasmaOrdered By: Fozia Robert on 01-07-2023 Glucose [Mass/Vol] 91 mg/dL 70-100 [facility] Comment on above: ADA recommended refe rence rangeRandom Glucose Reference Range is dependent on time and content of last meal. Glucose of more than 200 mg/dL in a nonstressed, ambulatory subject supports the diagnosis of Diabetes Mellitus. Hematocrit Auto (Bld) [Volum e fraction]Ordered By: Fozia Robert on 01-07-2023 Hematocrit (Bld) [Volume fraction] 41.1 % 34.0-46.4 [facility] Hemoglobin [Mass/volume] in BloodOrdered By: Fozia Robert on 01-07-2023 Hemoglobin (Bld) [Mass/Vol] 14.3 g/dL 11.8-15.4 [facility] Leukocytes [#/volume] correc isaac for nucleated erythrocytes in Blood by Automated counOrdered By: Fozia Robert on 01-07-2023 WBC corrected for nucl RBC Auto (Bld) [#/Vol] 5.1 10*3/uL 3.8-11.6 [facility] Lymphocytes Auto (Bld) [#/Vo l]Ordered By: Fozia Robert on 01-07-2023 Lymphocytes (Bld) [#/Vol] 1.4 10*3/uL 1.00-4.8 [facility] Lymphocytes/100 WBC Auto (Bl d)Ordered By: Fozia Robert on 01-07-2023 Lymphocytes/100 WBC (Bld) 26.9 % . [facility] MCH Auto (RBC) [Entitic mass ]Ordered By: Fozia Robert on 01-07-2023 MCH (RBC) [Entitic mass] 30.1 pg 24.7-34.3 [facility] MCHC Auto (RBC) [Mass/Vol]Or dered By: Fozia Robert on 01-07-2023 MCHC (RBC) [Mass/Vol] 34.7 g/dL 32.0-35.0 [facility] MCV Auto (RBC) [Entitic vol] Ordered By: Fozia Robert on 01-07-2023 MCV (RBC) [Entitic vol] 86.8 fL 80-100 [facility] Monocyte distribution width [Entitic volume] in Blood by AutomatedOrdered By: Fozia Robert on 01-07-2023 Monocyte distribution width Auto (Bld) [Entitic vol] 15.51 % 0.00-20.00 [facility] Monocytes Auto (Bld) [#/Vol] Ordered By: Fozia Robert on 01-07-2023 Monocytes (Bld) [#/Vol] 0.4 10*3/uL 0.0-0.8 [facility] Monocytes/100 WBC Auto (Bld) Ordered By: Fozia Robert on 01-07-2023 Monocytes/100 WBC (Bld) 8.6 % . [facility] Neutrophils Auto (Bld) [#/Vo l]Ordered By: Fozia Robert on 01-07-2023 Neutrophils (Bld) [#/Vol] 2.9 10*3/uL 1.8-7.7 [facility] Neutrophils/100 WBC Auto (Bl d)Ordered By: Fozia Robert on 01-07-2023 Neutrophils/100 WBC (Bld) 56.7 % . [facility] No Panel InformationOrdered By: Fozia Robert on 07-02-2023 Estimated GFR (CKD-EPI) > 60.0 mL/Min [facility] Creatinine Clearance (Chem 59.57 [facility] Nucleated erythrocytes [Pres ence] in Blood by Automated countOrdered By: Fozia Robert on 01-07-2023 Nucleated RBC Auto Ql (Bld) 0.1 /100{WBC} 0-0.5 [facility] Platelet mean volume Auto (B ld) [Entitic vol]Ordered By: Fozia Robert on 01-07-2023 Platelet mean volume (Bld) [Entitic vol] 6.9 fL 6.3-10.7 [facility] Platelets Auto (Bld) [#/Vol] Ordered By: Fozia Robert on 01-07-2023 Platelets (Bld) [#/Vol] 325 10*3/uL 150-450 [facility] Potassium [Moles/volume] in Serum or PlasmaOrdered By: Fozia Robert on 01-07-2023 Potassium [Moles/Vol] 4.2 mmol/L 3.5-5.1 [facility] Protein [Mass/volume] in Ser um or PlasmaOrdered By: Fozia Robert on 01-07-2023 Protein [Mass/Vol] 7.2 g/dL 6.4-8.9 [facility] RBC Auto (Bld) [#/Vol]Ordere d By: Fozia Robert on 01-07-2023 RBC (Bld) [#/Vol] 4.74 10*6/uL 3.60-5.00 [facility] Serum or plasma albumin/glob ulin mass ratioOrdered By: Fozia Robert on 01-07-2023 Albumin/Globulin [Mass ratio] 1.6 {ratio} [facility] Serum or plasma anion gap de terminationOrdered By: Fozia Robert on 01-07-2023 Anion gap [Moles/Vol] 8.8 mmol/L 6.0-15.0 [facility] Sodium [Moles/volume] in Ser um or PlasmaOrdered By: Fozia Robert on 01-07-2023 Sodium [Moles/Vol] 140 mmol/L 136-145 [facility] Troponin I High Sensitivityo n 01-07-2023 Troponin I High Sensitivity 2.3 pg/mL Normal 0.0-15.0 [facility] Comment on above: Result Comment: PERF ORMED BY: [facility] [address] [place] [address] PATHOLOGIST EMPLOYMENT AND CLAIMS AIDE AYANNA MARADIAGA M.D. Performed By: #### C BC, HS TROP, CMP, CK #### [facility] [address] Troponin I.cardiac [Mass/vol ume] in Serum or Plasma by Detection limit <= 0.01 ng/Ordered By: Fozia Robert on 01-07-2023 Troponin I.cardiac DL <= 0.01 ng/mL [Mass/Vol] 2.3 pg/mL 0.0-15.0 [facility] Urea nitrogen [Mass/volume] in Serum or PlasmaOrdered By: Fozia Robert on 01-07-2023 Urea nitrogen [Mass/Vol] 14 mg/dL 01-30 [facility] WBC Auto (Bld) [#/Vol]Ordere d By: Fozia Robert on 01-07-2023 WBC (Bld) [#/Vol] 5.1 10*3/uL 3.8-11.6 [facility] Covid-19 PCR (CVDTBH)on 07-10 SARS-CoV-2 (COVID-19) RNA LESLY+probe Ql (Unsp spec) Not detected Normal NOT DETECTED [facility] Comment on above: Result Comment: This test is not yet approved or cleared by the [place] FDA. When there are no FDA-approved or cleared tests available, and other criteria are met, FDA can make tests available under an emergency access mechanism called an Emergency Use Authorization (EUA). The EUA for this test is supported by the [place] of Health and Human Service's (HHS's) declaration [...] SARS-CoV-2. Performed By: #### C VDTBH #### [facility] [address] [place] [address] Dr. Allison Faulkner INFLUENZA A AND B AGon 08-04 [facility] SEE BELOW Normal [facility] Comment on above: Result Comment: Nega tive for Flu A protein angiten. Infection due to Flu A cannot be ruled out. Flu A angiten in the sample may be below the detection limit of the test. Performed By: #### I NFLUAB, RSV #### [facility] [address] [place] [address] Dr. Allison [facility] SEE BELOW Normal [facility] Comment on above: Result Comment: Nega tive for Flu B protein antigen. Infection due to Flu B cannot be ruled out. Flu B antigen in the sample may be below the detection limit of the test. Performed By: #### I NFLUAB, RSV #### [facility] [address] [place] [address] Dr. Allison Faulkner INFLUENZA A AG Negative Normal NEGATIVE SEE COMMENT [facility] Comment on above: Performed By: #### I NFLUAB, RSV #### [facility] [address] [place] [address] Dr. Allison Faulkner INFLUENZA B AG Negative Normal NEGATIVE SEE COMMENT [facility] Comment on above: Performed By: #### I NFLUAB, RSV #### [facility] [address] [place] [address] Dr. Allison Faulkner RSVon 08-04-2022 RSV AG Negative Normal NEGATIVE [facility] Comment on above: Performed By: #### I NFLUAB, RSV #### [facility] [address] [place] [address] CARDIAC SCORINGon 022 [...] hypertension E78.5: Hyperlipidemia. COMPARISON: None. ACCESSION NUMBER(S): [id number] ORDERING CLINICIAN: SAMANTHA ROBERT TECHNIQUE: Using prospective [...] https://www.ngo-nhlbi.org/ MESACHDRisk/MesaRiskScore/R iskScore.aspx Ashley blue al. JACC 2015 (http://dx.doi.org/10.1016/ j.j acc.2015.08.035) [employer] Specialist: Dr. Julio Cannon, Date: 05/31/2022 12:28 pm Electronically signed by: GILBERTO HATCH MD Normal [facility] CT Cardiac Scoringon 022 CT Cardiac Scoring [facility] HeartPacific Star CommunicationsSandu osmar 250 DO Work Phone: Office Visit (Cardiology)on 05-15-2022 Follow-up visit Diagnoses/Problems Assessed Palpitations (785.1) (R00.2) PVC symptomatic Reported 3% PVC burden [facility] summer 2021. We will request records. [...] last office follow-up. She was evaluated by [facility] cardiology for second opinion regarding palpitations. [...] additional testing. No caffeine, no alcohol, no [id number]-[id number] medications or energy drinks. Encouraged to get [...] Capsuleone daily Estradiol 0.1 MG/GM Vaginal CreamINSERT 1/4 APPLICATORFUL (1GM) VAGINALLY TWICE WEEKLY. Multi Vitamin Oral TabletTAKE 1 TABLET DAILY. Pantoprazole Sodium 40 MG Oral Tablet Delayed ReleaseTAKE 1 TABLET DAILY. PARoxetine HCl - 20 MG Oral TabletTAKE 1 TABLET DAILY. Rosuvastatin Calcium 10 MG Oral TabletTake 1 tablet by mouth daily Toprol XL 25 MG Oral Tablet Extended (more content not included)... Normal [employer] Tobacco Screening.on 022 Tobacco use status CPHS b) No [facility] osmar 250 DO Work Phone: Tobacco Screening. Yes [facility]-Sandu osmar 250 DO Work Phone: PAP ACOG PANEL 2: 30 to 65on 04-20-2022 . . Normal [facility] Comment on above: Result Comment: Perf ormed at: WB Performed By: #### [id number] #### [facility] [address] [place] [address] Dr. Allison Faulkner Age Gdln ACOG Testing 30-65 Normal [facility] Comment on above: Performed By: #### [id number] #### [facility] [address] [place] [address] Dr. Allison Faulkner DIAGNOSIS: Comment [facility] Comment on above: Result Comment: NEGA TIVE FOR INTRAEPITHELIAL LESION OR MALIGNANCY. REACTIVE CELLULAR CHANGES AND/OR REPAIR ARE PRESENT. Performed at: WB Performed By: #### [id number] #### [facility] [address] [place] [address] Dr. Allison Faulkner Electronically signed by: Comment [facility] Comment on above: Result Comment: Teresa Joaquin MD, Pathologist Performed at: WB Performed By: #### [id number] #### [facility] [address] [place] [address] Dr. Allison Faulkner HPV Aptima Negative Normal Negative [facility] Comment on above: Result Comment: This nucleic acid amplification test detects fourteen high-risk HPV types (16,18,31,33,35,39,45,51,52,56,58,59,66,68) without differentiation. Performed at: =G Performed By: #### [id number] #### [facility] [address] [place] [address] Dr. Allison Faulkner Methodology: Comment Normal [facility] Comment on above: Result Comment: This liquid based ThinPrep(R) pap test was screened with the use of an image guided system. Performed at: WB Performed By: #### [id number] #### [facility] [address] [place] [address] Dr. Allison Faulkner Note: Comment Normal [facility] Comment on above: Result Comment: The Pap smear is a screening test designed to aid in the detection of premalignant and malignant conditions of the uterine cervix. It is not a diagnostic procedure and should not be used as the sole means of detecting cervical cancer. Both false-positive and false-negative reports do occur. . Performed at: WB Performed By: #### [id number] #### [facility] [address] [place] [address] Dr. Allison Faulkner Performed by: Comment Normal [facility] Comment on above: Result Comment: Rommel Nation, Investigative Writer (ASCP) Performed at: WB Performed By: #### [id number] #### [facility] [address] [place] [address] Dr. Allison Faulkner Specimen adequacy: Comment Normal [facility] Comment on above: Result Comment: Sati sfactory for evaluation. Endocervical and/or squamous metaplastic cells (endocervical component) are present. Performed at: WB Performed By: #### [id number] #### [facility] [address] [place] [address] Dr. Allison Faulkner MG MAMM SCREEN 3D LUAN CADon 04-18-2022 MG MAMM SCREEN 3D LUAN CAD Patient: IVONNE ECHEVARRIA Exam Date: 04/18/2022 : 1955 Gender:F Ordering : DR TYLER ERVIN . Admission #: [id number] Family : Order #: [id number] CLICK HERE TO VIEW EXAM RADIOLOGY REPORT [...] rectal cancer at age 71. LOCATION: [facility] BREAST COMPOSITION: Extremely dense, which lowers the [...] MD on 04/18/2022 at 10:32 Normal [facility] XR DEXA BONE DENSITYon 04-18 XR DEXA [...] by: BRIAN STEVEN Date: 2022-04-18 16:16 Normal [facility] Complete Blood Count with Au to Diffon 11-08-2021 Basophils (Bld) [#/Vol] 0.10 10*3/uL Normal 0.00-0.20 [facility] Specialist Comment on above: Performed By: #### L IPD, CBCAD, CMP #### [facility] [address], [place] [id number] Basophils/100 WBC (Bld) 1.7 % Normal [facility] Specialist Comment on above: Performed By: #### L IPD, CBCAD, CMP #### [facility] [address], [place] [id number] Eosinophils (Bld) [#/Vol] 0.65 10*3/uL High 0.02-0.50 [facility] Specialist Comment on above: Performed By: #### L IPD, CBCAD, CMP #### [facility] [address], [place] [id number] Eosinophils/100 WBC (Bld) 10.9 % Normal [facility] Specialist Comment on above: Performed By: #### L IPD, CBCAD, CMP #### [facility] [address], [place] [id number] Erythrocyte distribution width (RBC) [Ratio] 12.0 % Normal 11.0-15.0 [facility] Calculating Machine Operator Comment on above: Performed By: #### L IPD, CBCAD, CMP #### [facility] [address], [place] [id number] Hematocrit (Bld) [Volume fraction] 41.5 % Normal 35.0-47.0 [facility] Specialist Comment on above: Performed By: #### L IPD, CBCAD, CMP #### [facility] [address], [place] [id number] Hemoglobin (Bld) [Mass/Vol] 13.5 g/dL Normal 11.6-15.5 [facility] Calculating Machine Operator Comment on above: Performed By: #### L IPD, CBCAD, CMP #### [facility] [address], [place] [id number] Lymphocytes (Bld) [#/Vol] 1.5 10*3/uL Normal 0.9-3.9 [facility] Comment on above: Performed By: #### L IPD, CBCAD, CMP #### [facility] [address], [place] [id number] Lymphocytes/100 WBC (Bld) 25.0 % Normal [facility] Comment on above: Performed By: #### L IPD, CBCAD, CMP #### [facility] [address], [place] [id number] MCH (RBC) [Entitic mass] 29.6 pg Normal 27.0-33.0 [facility] Specialist Comment on above: Performed By: #### L IPD, CBCAD, CMP #### [facility] [address], [place] [id number] MCHC (RBC) [Mass/Vol] 32.5 g/dL Normal 32.0-36.0 [facility] Comment on above: Performed By: #### L IPD, CBCAD, CMP #### [facility] [address], [place] [id number] MCV (RBC) [Entitic vol] 91 fL Normal 80-100 [facility] Specialist Comment on above: Performed By: #### L IPD, CBCAD, CMP #### [facility] [address], [place] [id number] Monocytes (Bld) [#/Vol] 0.5 10*3/uL Normal 0.2-0.9 [facility] Comment on above: Performed By: #### L IPD, CBCAD, CMP #### [facility] [address], [place] [id number] Monocytes/100 WBC (Bld) 8.1 % Normal [facility] Comment on above: Performed By: #### L IPD, CBCAD, CMP #### [facility] [address], [place] [id number] Neutrophils (Bld) [#/Vol] 3.2 10*3/uL Normal 1.5-7.8 [facility] Specialist Comment on above: Performed By: #### L IPD, CBCAD, CMP #### [facility] [address], [place] [id number] Neutrophils/100 WBC (Bld) 54.1 % Normal [place] Calculating Machine Operator Comment on above: Performed By: #### L IPD, CBCAD, CMP #### [facility] [address], [place] [id number] Platelet mean volume (Bld) [Entitic vol] 9.90 fL Normal 7.50-12.50 [facility] Calculating Machine Operator Comment on above: Performed By: #### L IPD, CBCAD, CMP #### [facility] [address], [place] [id number] Platelets (Bld) [#/Vol] 336 10*3/uL Normal 140-400 [facility] Calculating Machine Operator Comment on above: Performed By: #### L IPD, CBCAD, CMP #### [facility] [address], [place] [id number] RBC (Bld) [#/Vol] 4.56 10*6/uL Normal 3.90-5.20 [facility] Calculating Machine Operator Comment on above: Performed By: #### L IPD, CBCAD, CMP #### [facility] [address], [place] [id number] RDW-SD 40.6 fL Normal 37.0-50.0 [facility] Calculating Machine Operator Comment on above: Performed By: #### L IPD, CBCAD, CMP #### [facility] [address], [place] [id number] WBC (Bld) [#/Vol] 6.0 10*3/uL Normal 3.8-11.0 [facility] Calculating Machine Operator Comment on above: Performed By: #### L IPD, CBCAD, CMP #### [facility] [address], [place] [id number] Comprehensive Metabolic Pane [facility] 11-08-2021 Albumin [Mass/Vol] 4.6 g/dL Normal 3.6-5.1 [facility] Calculating Machine Operator Comment on above: Performed By: #### L IPD, CBCAD, CMP #### [facility] [address], [place] [id number] Albumin/Globulin [Mass ratio] 2.1 {ratio} Normal 1.0-2.5 [facility] Calculating Machine Operator Comment on above: Performed By: #### L IPD, CBCAD, CMP #### [facility] [address], [place] [id number] ALP [Catalytic activity/Vol] 68 U/L Normal 35-119 [facility] Comment on above: Performed By: #### L IPD, CBCAD, CMP #### [facility] [address], [place] [id number] ALT [Catalytic activity/Vol] 18 U/L Normal 6-33 [facility] Comment on above: Result Comment: 06/08 Female reference range changed. Performed By: #### L IPD, CBCAD, CMP #### [facility] [address], [place] [id number] Anion gap [Moles/Vol] 15 mmol/L Normal 12-20 [facility] Comment on above: Result Comment: Effe ctive 07/14/2019 reference range changed. Performed By: #### L IPD, CBCAD, CMP #### [facility] [address], [place] [id number] AST [Catalytic activity/Vol] 24 U/L Normal 9-34 [facility] Comment on above: Performed By: #### L IPD, CBCAD, CMP #### [facility] [address], [place] [id number] Bilirubin [Mass/Vol] 0.71 mg/dL Normal 0.30-1.20 [facility] Comment on above: Performed By: #### L IPD, CBCAD, CMP #### [facility] [address], [place] [id number] BUN/CREA 34 Ratio High 6-22 [facility] Comment on above: Performed By: #### L IPD, CBCAD, CMP #### [facility] [address] [facility] [place] [id number] Calcium [Mass/Vol] 9.3 mg/dL Normal 8.6-10.2 [facility] Comment on above: Performed By: #### L IPD, CBCAD, CMP #### [facility] [address] [facility] [place] [id number] Chloride [Moles/Vol] 105 mmol/L Normal 98-107 [facility] Comment on above: Performed By: #### L IPD, CBCAD, CMP #### [facility] [address], [place] [id number] CO2 [Moles/Vol] 28 mmol/L Normal 20-31 [facility] Comment on above: Performed By: #### L IPD, CBCAD, CMP #### [facility] [address], [place] [id number] Creatinine [Mass/Vol] 0.6 mg/dL Normal 0.6-1.4 [facility] Comment on above: Performed By: #### L IPD, CBCAD, CMP #### [facility] [address], [place] [id number] eGFRAA 122 mL/min/1.73m2 Normal >[address] [facility] Comment on above: Performed By: #### L IPD, CBCAD, CMP #### [facility] [address], [place] [id number] eGFRNAA 100 mL/min/1.73m2 Normal >[address] [facility] Comment on above: Performed By: #### L IPD, CBCAD, CMP #### [facility] [address], [place] [id number] Globulin (S) [Mass/Vol] 2.2 g/dL Normal 1.9-3.7 [facility] Comment on above: Performed By: #### L IPD, CBCAD, CMP #### [facility] [address], [place] [id number] Glucose [Mass/Vol] 86 mg/dL Normal 65-99 [facility] Comment on above: Result Comment: For FASTING Glucose --- ADA reference ranges: Normal 65-99 mg/dl Prediabetes 100-125 Diabetes >/= 126 Performed By: #### L IPD, CBCAD, CMP #### [facility] [address], [place] [id number] Potassium [Moles/Vol] 4.4 mmol/L Normal 3.5-5.5 [facility] Comment on above: Performed By: #### L IPD, CBCAD, CMP #### [facility] [address], [place] [id number] Protein [Mass/Vol] 6.8 g/dL Normal 6.1-8.1 [facility] [place] Calculating Machine Operator Comment on above: Performed By: #### L IPD, CBCAD, CMP #### [facility] [address], [place] [id number] Sodium [Moles/Vol] 143 mmol/L Normal 135-146 [facility] [place] Calculating Machine Operator Comment on above: Performed By: #### L IPD, CBCAD, CMP #### [facility] [address], [place] [id number] Urea nitrogen [Mass/Vol] 20 mg/dL Normal 7-25 [facility] Calculating Machine Operator Comment on above: Performed By: #### L IPD, CBCAD, CMP #### [facility] [address], [place] [id number] Lipid Panelon 11-08-2021 Cholesterol [Mass/Vol] 192 mg/dL Normal 125-200 [facility] Comment on above: Result Comment: Low risk < 200mg/dL Borderline risk 201-239 mg/dl High risk > or equal to 240 Performed By: #### L IPD, CBCAD, CMP #### [facility] [address], [place] [id number] Cholesterol in HDL [Mass/Vol] 61 mg/dL Normal >40 [facility] Calculating Machine Operator Comment on above: Result Comment: High Cardiovascular Risk HDL <40 mg/dL Low Cardiovascular Risk HDL > or equal to 60 mg/dl Performed By: #### L IPD, CBCAD, CMP #### [facility] [address], [place] [id number] Cholesterol in LDL [Mass/Vol] 118 mg/dL Normal [facility] Calculating Machine Operator Comment on above: Result Comment: LDL ATP III CLASSIFICATION LDL less than 100 mg/dl Optimal LDL 100-129 mg/dl Near or above optimal LDL 130-159 Borderline high LDL 160-189 High LDL greater than 189 mg/dl Very High Performed By: #### L IPD, CBCAD, CMP #### [facility] [address], [place] [id number] Cholesterol in VLDL [Mass/Vol] 13 mg/dL Normal [facility] Calculating Machine Operator Comment on above: Performed By: #### L IPD, CBCAD, CMP #### [facility] [address], [place] [id number] Cholesterol.total/Chol esterol in HDL [Mass ratio] 3 {ratio} Normal [facility] Calculating Machine Operator Comment on above: Performed By: #### L IPD, CBCAD, CMP #### [facility] [address], [place] [id number] Triglyceride [Mass/Vol] 66 mg/dL Normal 30-150 [facility] Calculating Machine Operator Comment on above: Result Comment: TRIG ATPIII CLASSIFICATIONS TRIG less than 150 mg/dl Normal TRIG 150-199 mg/dl Borderline High TRIG 200-500 mg/dl High TRIG greather than 500 mg/dl Very High Performed By: #### L IPD, CBCAD, CMP #### [facility] [address], [place] [id number] CNOVon 08-12-2021 CNOV Office Visit (CARCMN ) IVONNE ECHEVARRIA ([id number]) 1955 F Date Time Provider Department 08/12/21 9:45 AM GASPER HAMILTON During your visit today, we recorded the following information about you: Pulse Blood pressure Weight Height 67/minute 143/82 67.1 kg 1.575 m Gasper Hamilton MD 08/12/2021 11:45 AM Formerly [facility] [place] Emmett Coy Department of Cardiovascular Medicine SECTION OF CLINICAL CARDIOLOGY OUTPATIENT VISIT DATE August 12, 2021 OUTPATIENT VISIT TYPE NEW PRIMARY CARE PHYSICIAN : Conchis Zamora, [address] [place] [address] REFERRING PHYSICIAN: Teagan Szymanski [address] [facility] [id number] CHIEF COMPLAINT: Second opinion Cardiovascular evaluation HISTORY OF PRESENT ILLNESS: Ms. Echevarria is a 65 year old female who presents today for cardiovascular evaluation. CARDIAC HISTORY: ? Palpitations, evaluated by [facility] as well as Dr. Schneider in [place]. Chronic in nature. Has been on atenolol [...] burden with a Zio (she's going to [place] for two weeks but wishes to wear [...] No family (more content not included)... Normal [facility] Hardeep 07-20-2021 CNPN Telephone (RAMOMN) IVONNE ECHEVARRIA ([id number]) 1955 F Date Time Provider Department 07/20/21 GASPER HAMILTON During your visit today, we recorded the following information about you: Radha Katz Adm 07/20/2021 10:53 AM Signed Received by fax multiple Medical Records from [facility]. Pt has future 08/12/[address] appt. Uploaded into Dr. Hamilton OPD folder, scanned into [employer] and placed in Dr Hamilton in basket for review Radha Casas Allergies As of Date: 07/20/2021 Noted Allergy Reaction BIAXIN (CLARITHROMYCIN) 09/29/2016 5 - Intolerance Date Reviewed: Never Reviewed Reason for Visit: Received Outside Medical Records [3576] Cmt: [facility] Prescriptions as of 07/20/2021 - ergocalciferol, vitamin [...] Take by mouth. - Vit A,C and R-Pygr-Q4-Lut-Mn-Glu (EYE-MIRZA EXTRA + LUTEIN) 1000 unit-300mg -100 unit-2 mg tab Take by mouth. - UBIDECARENONE (CO Q-10 ORAL) Take by mouth. - aspirin, enteric coated (ASPIRIN, ENTERIC COATED) 81 mg EC tablet Take 81 mg by mouth once daily. Problem List As Of Date 07/20/2021 Noted Resolved Vitamin D deficiency [E55.9] 10/07/2016 Encounter Status:Closed by RADHA MURPHY on 07/20/21 [facility] Hardeep 07-12-2021 CNPN Telephone (ZACK) IVONNE ECHEVARRIA ([id number]) 1955 F Date Time Provider Department 07/12/21 GASPER HAMILTON During your visit today, we recorded the following information about you: Radha Carbajal Sterling Casas 07/12/2021 10:17 AM Signed LM for pt requesting Medical Records prior to 08/12/21 appt. Address, Email and Fax provided Radha T Sterling Casas Allergies As of Date: 07/12/2021 [...] Take by mouth. - Vit A,C and P-Oijt-G2-Lut-Mn-Glu (EYE-MIRZA EXTRA + LUTEIN) 1000 unit-300mg -100 unit-2 mg tab Take by mouth. - UBIDECARENONE (CO Q-10 ORAL) Take by mouth. - aspirin, enteric coated (ASPIRIN, ENTERIC COATED) 81 mg EC tablet Take 81 mg by mouth once daily. Problem List As Of Date 07/12/2021 Noted Resolved Vitamin D deficiency [E55.9] 10/07/2016 Encounter Status:Closed by RADHA MURPHY on 07/12/21 Normal [facility] Office Visit (Cardiology)on 05-30-2021 Follow-up visit Diagnoses/Problems Assessed Palpitations (785.1) (R00.2) Hyperlipidemia (272.4) (E78.5) Essential hypertension (401.9) (I10) Overweight with body mass index (BMI) of 26 to 26.9 in adult (278.02,V85.22) (E66.3,Z68.26) Patient Instructions By signing my name below, I, Yonathan Barreto LPN, attest that this documentation has been prepared [...] Signs Recorded: 30May2021 08:59AM Heart Rate71, Apical Sfhgmsrw252, LUE, Sitting Sjutacskz65, LUE, Sitting Height5 ft 2 in Ewiiya182 lb BMI Kbopbbvima65.52 kg/m2 BSA Calculated1.67 Tobacco Useb) No Fall Screeninga) No falls within the last year Signatures Electronically signed by : Julio Christian DO; May 30 2021 9:19AM EST (Author) Normal [employer] Tobacco Screening.on 021 Fall risk assessment a) No falls within the last year [facility] [address] DO Work Phone: Tobacco use status [facility] b) No [facility] [address] DO Work Phone: Vital Signs Date Time Vital Sign Value Performing Clinician Facility 05-14-2024 13:28-0500 Body height 157.48 cm [facility] 05-14-2024 13:28-0500 Body mass index (BMI) [Ratio] 25.9 kg/m2 [facility] 05-14-2024 13:28-0500 Body weight 64.41 kg [facility] 05-12-2024 09:13-0500 Body height 157.5 cm Lacey Damico MD Work Phone: [facility] 05-12-2024 09:13-0500 Body mass index (BMI) [Ratio] 26.7 kg/m2 Lacey Damico MD Work Phone: [facility] 05-12-2024 09:13-0500 Body weight 66.22 kg Lacey Damico MD Work Phone: [facility] 05-12-2024 09:13-0500 Diastolic blood pressure 94 mm[Hg] Lacey Damico MD Work Phone: [facility] 05-12-2024 09:13-0500 Heart rate 68 /min Lacey Damico MD Work Phone: [facility] 05-12-2024 09:13-0500 Systolic blood pressure 152 mm[Hg] Lacey Damico MD Work Phone: [facility] 04-24-2024 08:45-0400 Body mass index (BMI) [Ratio] 26.54 kg/m2 Tyler Aziza DO Work Phone: [facility] 04-24-2024 08:45-0400 Body weight 65.83 kg Tyler Aziza DO Work Phone: [facility] 04-24-2024 08:45-0400 Diastolic blood pressure 70 mm[Hg] Tyler Aziza DO Work Phone: [facility] 04-24-2024 08:45-0400 Systolic blood pressure 122 mm[Hg] Tyler Aziza DO Work Phone: [facility] 04-22-2024 09:16-0400 Blood Pressure Location Ludmila Elzbieta [facility] 04-22-2024 09:16-0400 Diastolic blood pressure 88 mm[Hg] Ludmila Orzech [facility] 04-22-2024 09:16-0400 Heart rate 91 /min Ludmila Orzech [facility] 04-22-2024 09:16-0400 Respiratory rate 16 /min Ludmila Orzech [facility] 04-22-2024 09:16-0400 Systolic blood pressure 128 mm[Hg] Ludmila Orzech [facility] 04-14-2024 08:54-0400 Body height 157.5 cm Conchis Petznick DO Work Phone: [facility] 04-14-2024 08:54-0400 Body mass index (BMI) [Ratio] 27.11 kg/m2 Conchis Petznick DO Work Phone: [facility] 04-14-2024 08:54-0400 Body temperature 96.3 [degF] Conchis Petznick DO Work Phone: [facility] 04-14-2024 08:54-0400 Body weight 67.22 kg Conchis Petznick DO Work Phone: [facility] 04-14-2024 08:54-0400 Diastolic blood pressure 82 mm[Hg] Conchis Petznick DO Work Phone: [facility] 04-14-2024 08:54-0400 Heart rate 77 /min Conchis Petznick DO Work Phone: [facility] 04-14-2024 08:54-0400 SaO2% (BldA) [Mass fraction] 98 % Conchis Petznick DO Work Phone: [facility] 04-14-2024 08:54-0400 Systolic blood pressure 126 mm[Hg] Conchis Petznick DO Work Phone: [facility] 05-10-2023 09:11-0400 Body height 157.5 cm Lacey Damico MD Work Phone: [facility] 05-10-2023 09:11-0400 Body mass index (BMI) [Ratio] 26.16 kg/m2 Lacey Damico MD Work Phone: [facility] 05-10-2023 09:11-0400 Body weight 64.86 kg Lacey Damico MD Work Phone: [facility] 05-10-2023 09:11-0400 Diastolic blood pressure 72 mm[Hg] Lacey Damico MD Work Phone: [facility] 05-10-2023 09:11-0400 Heart rate 84 /min Lacey Damico MD Work Phone: [facility] 05-10-2023 09:11-0400 Systolic blood pressure 118 mm[Hg] Lacey Damico MD Work Phone: [facility] 01-17-2023 13:00-0400 Body height 157.48 cm Malvin Westbrook Other [employer] [facility] [employer] Other 01-17-2023 13:00-0400 Body mass index (BMI) [Ratio] 26.52 kg/m2 Malvin Westbrook Other [email or web address] Other 01-17-2023 13:00-0400 Body weight 65.77 kg Malvin Westbrook Other [email or web address] Other 01-17-2023 13:00-0400 Diastolic blood pressure 69 mm[Hg] Malvin Westbrook Other [email or web address] Other 01-17-2023 13:00-0400 Systolic blood pressure 111 mm[Hg] Malvin Ditty Other [facility] [employer] Other 01-15-2023 09:05-0400 Blood Pressure Location Morgan TILLMAN [facility] 01-15-2023 09:05-0400 Diastolic blood pressure 68 mm[Hg] Morganalexander TILLMAN [facility] 01-15-2023 09:05-0400 Heart rate 80 /min Morganalexander TILLMAN [facility] 01-15-2023 09:05-0400 Respiratory rate 16 /min Morganalexander TILLMAN [facility] 01-15-2023 09:05-0400 Systolic blood pressure 120 mm[Hg] Morganalexander TILLMAN [facility] 01-07-2023 13:52-0400 Diastolic blood pressure 92 mm[Hg] DO Conchis Petznick Work Phone: [facility] 01-07-2023 13:52-0400 Heart rate 85 /min DO Conchis Petznick Work Phone: [facility] 01-07-2023 13:52-0400 Respiratory rate 16 /min DO Conchis Petznick Work Phone: [facility] 01-07-2023 13:52-0400 SaO2% (BldA) [Mass fraction] 99 % DO Conchis Petznick Work Phone: [facility] 01-07-2023 13:52-0400 Systolic blood pressure 152 mm[Hg] DO Conchis Petznick Work Phone: [facility] 01-07-2023 12:40-0400 Body height 157.48 cm DO Conchis Petznick Work Phone: [facility] 01-07-2023 12:40-0400 Body weight 68.03 kg DO Conchis Petznick Work Phone: [facility] 01-07-2023 12:34-0400 Body temperature 98 [degF] DO Conchis Petznick Work Phone: [facility] 10-09-2022 14:00-0400 Body height 157.48 cm Filemon Scruth Other [facility] [employer] Other 10-09-2022 14:00-0400 Diastolic blood pressure 83 mm[Hg] Filemon Scovanner Other [facility] [employer] Other 10-09-2022 14:00-0400 Systolic blood pressure 114 mm[Hg] Filemon Scovanner Other [facility] [employer] Other 05-15-2022 08:11-0500 Body height 157.48 cm Conchis Sheikh Petznick Work Phone: [facility] [employer] [address] DO Work Phone: 05-15-2022 08:11-0500 Body mass index (BMI) [Ratio] 27.25 kg/m2 Conchis Sheikh Petznick Work Phone: [facility] [employer] [address] DO Work Phone: 05-15-2022 08:11-0500 Body surface area Derived from formula 1.69 m2 Conchis Sheikh Petznick Work Phone: [facility] 250 DO Work Phone: 05-15-2022 08:11-0500 Body weight 67.59 kg Conchis Sheikh Petznick Work Phone: [facility] [address] DO Work Phone: 05-15-2022 08:11-0500 Diastolic blood pressure 88 mm[Hg] Conchis Sheikh Petznick Work Phone: [facility] DO Work Phone: 05-15-2022 08:11-0500 Heart rate 76 /min Conchis Zamora Work Phone: [facility] DO Work Phone: 05-15-2022 08:11-0500 Systolic blood pressure 138 mm[Hg] Conchis Zamora Work Phone: [facility] [address] DO Work Phone: 01-20-2022 08:32-0400 Blood Pressure Location Morganalexander TILLMAN [facility] 01-20-2022 08:32-0400 Diastolic blood pressure 84 mm[Hg] Morgan TILLMAN [facility] 01-20-2022 08:32-0400 Heart rate 64 /min Morgan TILLMAN [facility] 01-20-2022 08:32-0400 Respiratory rate 16 /min Morgan TILLMAN [facility] 01-20-2022 08:32-0400 Systolic blood pressure 138 mm[Hg] Morgan TILLMAN [facility] 08-16-2021 10:00-0500 Body height 157.48 cm Malvin Westbrook Other [email or web address] Other 08-16-2021 10:00-0500 Body mass index (BMI) [Ratio] 26.52 kg/m2 Malvin Westbrook Other [email or web address] Other 08-16-2021 10:00-0500 Body weight 65.77 kg Malvin Westbrook Other [facility] [employer] Other 08-16-2021 10:00-0500 Diastolic blood pressure 77 mm[Hg] Malvin Upy Other [facility] [employer] Other 08-16-2021 10:00-0500 Systolic blood pressure 129 mm[Hg] Malvin Westbrook Other [facility] [employer] Other 05-30-2021 08:59-0500 Body height 157.48 cm Conchis Zamora Work Phone: [facility] [address] DO Work Phone: 05-30-2021 08:59-0500 Body mass index (BMI) [Ratio] 26.52 kg/m2 Conchis Urrutiaznick Work Phone: [facility] [address] DO Work Phone: 05-30-2021 08:59-0500 Body surface area Derived from formula 1.67 m2 Conchis Urrutiaznick Work Phone: [facility] [address] DO Work Phone: 05-30-2021 08:59-0500 Body weight 65.77 kg Conchis Guerraick Work Phone: [facility] [address] DO Work Phone: 05-30-2021 08:59-0500 Diastolic blood pressure 84 mm[Hg] Conchis Urrutiaznick Work Phone: [facility] [address] DO Work Phone: 05-30-2021 08:59-0500 Heart rate 71 /min Conchis Urrutiaznick Work Phone: [facility] [address] DO Work Phone: 05-30-2021 08:59-0500 Systolic blood pressure 135 mm[Hg] Conchis Zamora Work Phone: -[facility] 250 DO Work Phone: Encounters Encounter Date Encounter Type Care Provider Facility Start: 06-23-2024 ambulatory Morgan R PRIMO Butler ty:ELZBIETA Evansue Start: 05-16-2024 End: 05-16-2024 Bamboo flowsheet Krishan Orlando CIRCULAR SHEAR OPERATOR [facility] Start: 05-16-2024 End: 05-16-2024 Bamboo flowsheet Krishanfaviola Perry CIRCULAR SHEAR OPERATOR [facility] Start: 05-16-2024 End: 05-16-2024 ambulatory Krishan Perry CIRCULAR SHEAR OPERATOR [facility] Comment on above: Right shoulder pain, unspecified chronicity (Primary Dx); S/P arthroscopy of right shoulder Start: 05-14-2024 End: 05-14-2024 Bamboo flowsheet Krishan Perry CIRCULAR SHEAR OPERATOR [facility] Start: 05-14-2024 End: 05-14-2024 Bamboo flowsheet Krishan Orlando CIRCULAR SHEAR OPERATOR [facility] Start: 05-14-2024 End: 05-14-2024 Patient encounter procedure [facility]ly [facility] Work Phone: Start: 05-14-2024 End: 05-14-2024 ambulatory KRISHAN ORLANDO Not Available Start: 05-14-2024 End: 05-14-2024 ambulatory Krishan Perry CIRCULAR SHEAR OPERATOR [facility] Comment on above: Right shoulder pain, unspecified chronicity (Primary Dx); S/P arthroscopy of right shoulder Start: 05-12-2024 End: 05-12-2024 ambulatory [facility] Start: 05-12-2024 End: 05-12-2024 Office outpatient visit 25 minutes Lacey Damico MD Work Phone: [facility] Comment on above: Essential hypertensi on; Palpitations; Mixed hyperlipidemia; Medication course changed; BMI 26.0-26.9,adult; Former smoker Start: 05-09-2024 End: 05-09-2024 Bamboo flowsheet Krishan Perry CIRCULAR SHEAR OPERATOR [facility] Start: 05-09-2024 End: 05-09-2024 Bamboo flowsheet Krishan Perry CIRCULAR SHEAR OPERATOR [facility] Start: 05-09-2024 End: 05-09-2024 ambulatory Krishan Perry CIRCULAR SHEAR OPERATOR [facility] Comment on above: Right shoulder pain, unspecified chronicity (Primary Dx); S/P arthroscopy of right shoulder Start: 05-05-2024 End: 05-05-2024 Bamboo flowsheet Krishan Perry CIRCULAR SHEAR OPERATOR [facility] Start: 05-05-2024 End: 05-05-2024 Bamboo flowsheet Krishan Perry CIRCULAR SHEAR OPERATOR [facility] Start: 05-05-2024 End: 05-05-2024 ambulatory Krishan Perry CIRCULAR SHEAR OPERATOR [facility] Comment on above: [...] 04-30-2024 End: 04-30-2024 Bamboo flowsheet Krishan Perry CIRCULAR SHEAR OPERATOR [facility] Start: 04-30-2024 End: 04-30-2024 Bamboo flowsheet Krishan Perry CIRCULAR SHEAR OPERATOR [facility] Start: 04-30-2024 End: 04-30-2024 ambulatory Krishan Perry CIRCULAR SHEAR OPERATOR [facility] Comment on above: S/P arthroscopy of r ight shoulder (Primary Dx); Right shoulder pain, unspecified chronicity Start: 04-25-2024 End: 04-25-2024 Bamboo flowsheet Krishan Perry CIRCULAR SHEAR OPERATOR [facility] Start: 04-25-2024 End: 04-25-2024 Bamboo flowsheet Krishan Perry CIRCULAR SHEAR OPERATOR [facility] Start: 04-25-2024 End: 04-25-2024 ambulatory Krishan Perry CIRCULAR SHEAR OPERATOR [facility] Comment on above: [...] older Tyler Aziza DO Work Phone: [facility] Comment on above: Well woman exam with routine gynecological exam; Breast cancer screening by mammogram; Postmenopausal state; Stomach pain; Pelvic pain in female Start: 04-24-2024 End: 04-24-2024 ambulatory TYLER SANDOVALO Not Available Start: 04-23-2024 End: 04-23-2024 Nga Mcclellan DO Work Phone: [facility] Start: 04-23-2024 End: 04-23-2024 Nga Mcclellan DO Work Phone: [facility] Start: 04-23-2024 End: 04-23-2024 ambulatory CHERIE JEFFERY Not Available Start: 04-23-2024 End: 04-23-2024 Postop follow up visit related to original px Jr. Cherie Mcclellan DO Work Phone: [facility] Comment on above: S/P arthroscopy of r ight shoulder (Primary Dx); Internal derangement of right shoulder Start: 04-22-2024 End: 04-22-2024 ambulatory [facility] Facility:[facility] Start: 04-22-2024 End: 04-22-2024 Patient encounter procedure Ludmila Ruff [facility] Start: 04-18-2024 End: 04-18-2024 ambulatory Morgan TILLMAN Facility:[facility] Start: 04-18-2024 End: 04-18-2024 Patient encounter procedure Morgan TILLMAN [facility] Start: 04-17-2024 End: 04-17-2024 Bamboo flowsheet Krishan Perry CIRCULAR SHEAR OPERATOR [facility] Start: 04-17-2024 End: 04-17-2024 Bamboo flowsheet Krishan Perry CIRCULAR SHEAR OPERATOR [facility] Start: 04-17-2024 End: 04-17-2024 ambulatory Krishan Perry CIRCULAR SHEAR OPERATOR [facility] Comment on above: S/P arthroscopy of r ight shoulder (Primary Dx); Right shoulder pain, unspecified chronicity Start: 04-14-2024 End: 04-14-2024 Patient encounter procedure Conchis Zamora DO Work Phone: [facility] FM 230 Comment on above: Routine general medi bess examination at a health care facility (Primary Dx); Mitral valve prolapse; Dukes's esophagus with dysplasia; Gastroesophageal reflux disease with esophagitis without hemorrhage; Essential hypertension (CMS/HCC); Mixed hyperlipidemia (CMS/HCC); Anxiety; Age-related osteoporosis without current pathological fracture (CMS/HCC); Irritation of eyelid Start: 04-14-2024 End: 04-14-2024 Patient encounter status Conchis Zamora DO Work Phone: [facility] Work Phone: Start: 04-14-2024 End: 04-14-2024 ambulatory CONCHIS ZAMORA Not Available Start: 04-14-2024 End: 04-14-2024 ambulatory Krishan Perry CIRCULAR SHEAR OPERATOR [facility] Comment on above: S/P arthroscopy of r ight shoulder (Primary Dx); Right shoulder pain, unspecified chronicity Start: 04-10-2024 End: 04-10-2024 Bamboo flowsheet Rain Matty PT [facility] Start: 04-10-2024 End: 04-10-2024 Bamboo flowsheet Rain Matty PT [facility] Start: 04-10-2024 End: 04-10-2024 ambulatory Rain Matty PT [facility] Comment on above: [...] Available Start: 02-14-2024 End: 02-14-2024 ambulatory CONCHIS Olmedo JUAN Not Available Start: 01-17-2024 End: 01-17-2024 ambulatory [...] ZAMORA Not Available Start: 05-10-2023 End: 05-10-2023 Office outpatient visit 15 minutes Lacey Damico MD Work Phone: [facility] Comment on above: Essential hypertensi on; Mixed hyperlipidemia; Palpitations; BMI 26.0-26.9,adult Start: 01-17-2023 End: 01-17-2023 ambulatory Malvin Westbrook Other [email or web address] Other Start: 01-17-2023 Patient encounter procedure Malvin Westbrook [facility] G[facility] Start: 01-15-2023 End: 01-15-2023 Patient encounter procedure Morgan TILLMAN [facility] Start: 01-07-2023 End: 01-07-2023 Emergency department patient visit Conchis Urrutiajamelarlyn Facility:[facility] Start: 01-07-2023 End: 01-07-2023 Emergency department patient visit DO Conchis Zamora Work Phone: [facility] Work Phone: Start: 10-23-[address] GALINA BECERRIL Facilit y:[email or web address] Start: 10-09-2022 End: 10-09-2022 ambulatory Filemon Meléndez Other [employer] Other Start: 10-09-2022 Office outpatient vi sit 15 minutes Filemon Meléndez [facility] Start: 10-02-2022 End: 10-02-2022 ambulatory Malvin Westbrook Other [place] [employer] Other Start: 10-02-2022 Telephone encounter Malvin HOWARD [facility] Gastro[facility] Start: 09-11-2022 End: 09-11-2022 Lab Drop off Morgan Haynes PRIMO [facility] Start: 08-04-2022 End: 08-04-2022 ambulatory CONCHIS ZAMORA Facility:[facility]1 Start: 07-04-2022 End: 07-04-2022 ambulatory Malvin Westbrook Other [place] [employer] Other Start: 07-04-2022 Telephone encounter Malvin HOWARD G Gastroenter[facility] Start: 06-06-2022 Chart Update Conchis ramos Work Phone: -[facility] 250 DO Work Phone: Start: 05-31-2022 ambulatory Ms. Samantha Robert Facilit y:[id number] Start: 05-15-2022 Office outpatient vi sit 15 minutes Conchis Zamora Work Phone: [facility] 250 DO Work Phone: Start: 05-15-2022 ambulatory JEWELL Robert Facilit y:[id number] Start: 04-18-2022 End: 04-19-[address] TYLER ERVIN . Facility:[facility]1 Start: 04-15-2022 End: 04-15-2022 ambulatory CONCHIS ZAMORA Facility:[facility] Start: 04-10-2022 End: 04-10-[address] TYLER ERVIN . Facility: Start: 01-20-2022 End: 01-20-2022 Patient encounter procedure Morgan Haynes TILLMAN [facility] Start: 12-14-2021 Rx Renewal Conchis ramos Work Phone: [facility] 250 DO Work Phone: Start: 11-29-2021 End: 11-29-2021 Lab Drop [facility] Start: 11-29-2021 End: 11-29-2021 Patient encounter procedure Morgan Haynes PRIMO [facility] Start: 11-28-2021 Orders Only Gasper wagoner MD Work Phone: Cardiology Comment on above: Sleep apnea, unspeci fied type (Primary Dx) Start: 10-19-2021 End: 10-19-2021 ambulatory Gasper Hamilton MD Work Phone: Cardiology Comment on above: Heart palpitations ( Primary Dx) Start: 10-19-2021 End: 10-19-2021 Telemedicine consultation with patient Gasper Hamilton MD Work Phone: [facility] Start: 10-14-2021 Chart abstracting [facility] Main Work Phone: Neurology Comment on above: HSAT Check In (Adult ) Start: 09-09-2021 Rx Renewal Conchis ramos Work Phone: [facility] 250 DO Work Phone: Start: 08-16-2021 End: 08-16-2021 ambulatory Malvin Westbrook Other [facility] [employer] Other Start: 08-16-2021 Patient encounter procedure Malvin Wsetbrook [facility] Gastroenterology Start: 08-15-2021 Rx Renewal Conchis ramos Work Phone: [facility] 250 DO Work Phone: Start: 05-30-2021 Office outpatient vi sit 25 minutes Conchis Zamora Work Phone: [facility] 250 DO Work Phone: Start: 05-30-[address] Conchis Zamora Facility: Start: 05-26-2021 Rx Renewal Julio Reinosoter DO Work Phone: [facility] 250 DO Work Phone: Echocardiogram normal Conchis Kori Ghadajamelarlyn Work Phone: [facility] 250 DO Work Phone: Radionuclide heart s tudy normal Conchis C Ghadajamelarlyn Work Phone: [facility] 250 DO Work Phone: Procedures Date Procedure Procedure Detail Performing Clinician Start: 04-24-2024 Urnls dip stick/tablet rgnt non-auto w/o micrscp Tyler Aziza DO Work Phone: Start: 04-24-2024 IGP,APTIMA HPV,AGE GDLN Tyler Aziza DO Work Phone: Start: 04-08-2024 Lipid 1996 panel - Serum or Plasma Viridiana Damico MD Work Phone: Start: 04-20-2023 Mammography Rain Starr PT Start: 04-11-2023 Cytp cerv/vag auto thin layer prep mnl screen Tyler Aziza DO Work Phone: Start: 01-07-2023 CT of head without contrast DO Conchis vaz Work Phone: Start: 04-18-2022 Mammography Lacey Damico MD Work Phone: Start: 04-04-2021 Dilation of urethra Morgan TILLMAN Start: 06-28-2020 Dilation of urethra Morgan TILLMAN Start: 03-12-2019 Esophagogastroduodenoscopy Morgan Raines Start: 10-21-2018 End: 10-21-2018 Colonoscopy Rain Starr PT Start: 11-16-2017 Dilation of urethra Morgan TILLMAN Start: 01-29-2017 Cystourethroscopy with dilation of urethral stricture Morgan TILLMAN Start: 09-29-2016 Adult depression screening assessment Gasper Hamilton MD Work Phone: section Conchis vaz Work Phone: section Morgan CACERES Laparoscopy Morgan TILLMAN Repair of musculoten dinous cuff of shoulder Conchis Zamora Work Phone: Rotator cuff includi ng muscles and tendons (body structure) Morgan TILLMAN Tonsillectomy Conchis ramos Work Phone: Tonsillectomy Morgan TILLMAN Total colonoscopy Conchis Zamora Work Phone: Plan of Treatment Date Care Activity Detail Author Start: 04-08-2029 Lipid panel Lipid Panel [facility] Start: 10-21-2028 Screening for malignant neoplasm of colon [facility] Start: 04-30-2025 End: 04-30-2025 Patient encounter procedure 04/30/2025 8:30 AM EDT Office Visit [facility] [address] [place] [address] Tyler Ervin DO [address] [place] [address] [facility] Start: 04-24-2025 Medicare Annual Wellness (AWV) Medicare Annual Wellness (AWV) [facility] Start: 04-14-2025 Medicare Annual Wellness (AWV) Medicare Annual Wellness (AWV) [facility] Start: 11-10-2024 End: 11-10-2024 Patient encounter procedure 11/10/2024 9:00 AM EDT Office Visit [facility] [address] [facility] [address] [place] [address] Lacey Damico MD [address] [facility] [address] [place] [address] [facility] Start: 2024 End: 05-12-2025 Alanine aminotransferase [Enzymatic activity/volume] in Serum or Plasma by With P-5'-P Alanine Aminotransferase Lab Routine Mixed hyperlipidemia Medication course changed Expected: 2024, Expires: 05/12/2025 [facility] Work Phone: Comment on above: Expected: 2024, Expires: Start: 2024 End: 05-12-2025 Aspartate aminotransferase [Enzymatic activity/volume] in Serum or Plasma by With P-5'-P Aspartate Aminotransferase Lab Routine Mixed hyperlipidemia Medication course changed Expected: 2024, Expires: 05/12/2025 [facility] Work Phone: Comment on above: Expected: 2024, Expires: Start: 2024 End: 05-12-2025 Basic metabolic 2000 panel - Serum or Plasma Basic Metabolic Panel Lab Routine Essential hypertension Medication course changed Expected: 2024, Expires: 05/12/2025 [facility] Work Phone: Comment on above: Expected: 2024, Expires: Start: 2024 End: 05-12-2025 Lipid 1996 panel - Serum or Plasma Lipid Panel Lab Routine Mixed hyperlipidemia Medication course changed Expected: 2024, Expires: 05/12/2025 [facility] Service Area Work Phone: Comment on above: Expected: 2024, Expires: Start: 06-11-2024 End: 06-11-2024 Patient encounter procedure 06/11/2024 8:45 AM EST Office Visit [facility] [address] [place] [id number] Jr. Cherie Mcclellan, DO [address] [place] [address] [facility] Start: 05-16-2024 End: 05-16-2024 ambulatory 05/16/2024 7:30 AM EST Treatment [facility] [address] [place] [id number] Krishan Perry PTA [facility] Start: 05-14-2024 End: 05-14-2024 ambulatory [facility] Start: 05-12-2024 End: 05-12-2024 Patient encounter procedure 05/12/2024 9:00 AM EST Office Visit [facility] [address] [facility] [address] [place] [address] Lacey Damico MD [address] [facility] [address] [place], [place] [id number] [facility] Start: 05-10-2024 End: 05-10-2024 Comprehensive metabolic 2000 panel - Serum or Plasma Comprehensive Metabolic Panel Lab Routine Essential hypertension Mixed hyperlipidemia Expected: 05/10/2024 (Approximate), Expires: 05/10/2024 [facility] Service Area Work Phone: Comment on above: Expected: 05/10/2024 (Approximate), Expi res: 05/10/2024 Start: 05-10-2024 End: 05-10-2024 Lipid 1996 panel - Serum or Plasma Lipid Panel Lab Routine Essential hypertension Mixed hyperlipidemia Expected: 05/10/2024 (Approximate), Expires: 05/10/2024 [facility] Work Phone: Comment on above: Expected: 05/10/2024 (Approximate), Expi res: 05/10/2024 Start: 05-09-2024 End: 05-09-2024 ambulatory 05/09/2024 7:30 AM EDT Treatment [facility] [address] [facility] [address] [place] [address] Krishan Perry PTA [facility] Start: 05-08-2024 End: 05-08-2024 Professional / ancillary services management 05/08/2024 11:00 AM EDT Ancillary Procedure [facility] [address] [place] [address] [facility] Start: 05-05-2024 End: 05-05-2024 ambulatory 05/05/2024 7:30 AM EDT Treatment [facility] [address] [facility] [address] [place] [address] Krishan Perry PTA [facility] Start: 05-02-2024 End: 05-02-2024 ambulatory [facility] Comment on above: Arrived Start: 04-30-2024 End: 04-30-2024 ambulatory 04/30/2024 7:30 AM EDT Treatment [facility] [address] [facility] [address] [place] [address] Krishan Perry PTA [facility] Start: 04-25-2024 End: 04-25-2024 ambulatory 04/25/2024 7:30 AM EDT Treatment [facility] [address] [facility] [address] [place] [address] Krishan Perry PTA [facility] Start: 04-24-2024 End: 04-24-2025 DXA Skeletal system Views for bone density DEXA bone density Imaging Routine Postmenopausal state Expected: 04/24/2024 (Approximate), Expires: 04/24/2025 [facility] Comment on above: Expected: 04/24/2024 (Approximate), Expi res: 04/24/2025 Start: 04-24-2024 End: 06-24-2025 MG Breast - bilateral Screening Bilateral screening mammogram Imaging Routine Breast cancer screening by mammogram Expected: 04/24/2024, Expires: 06/24/2025 [facility] Work Phone: Comment on above: Expected: 04/24/2024, Expires: Start: 04-24-2024 End: 04-24-2025 US for US PELVIS-TRANSVAG IF INDICATED Imaging Routine Stomach pain Pelvic pain in female Expected: 04/24/2024 (Approximate), Expires: 04/24/2025 [facility] Comment on above: Expected: 04/24/2024 (Approximate), Expi res: 04/24/2025 Start: 04-24-2024 End: 04-24-2024 Patient encounter procedure 04/24/2024 8:30 AM EDT Office Visit [facility] [address] [facility] [id number] Tyler Ervin, DO [address] [facility] [place] [address] [facility] Start: 04-23-2024 End: 04-23-2024 Patient encounter procedure 04/23/2024 8:45 AM EDT Office Visit [facility] [address] [place] [address] Jr. Cherie Mcclellan, DO [address] [place] [address] [facility] Start: 04-21-2024 End: 04-21-2024 ambulatory 04/21/2024 7:30 AM EDT Treatment [facility] [address] [place] [address] Krishan Perry, CIRCULAR SHEAR OPERATOR [facility] Start: 04-20-2024 Screening for malignant neoplasm of breast Mammogram [facility] Start: 04-18-2024 Screening for osteoporosis Bone Density Scan [facility] Start: 04-17-2024 End: 04-17-2024 ambulatory [facility] Comment on above: Arrived Start: 04-14-2024 End: 04-14-2024 Patient encounter procedure 04/14/2024 9:00 AM EDT Office Visit [facility] [address] [facility] [address] [place] [phone] Conchis Zamora, DO [address] [facility] [address] [place] [address] [facility] 230 Start: 04-14-2024 End: 04-14-2024 ambulatory 04/14/2024 7:30 AM EDT Treatment [facility] [address] [facility] [address] [place] [phone] Orlando Krishan, CIRCULAR SHEAR OPERATOR [facility] Start: 04-11-2024 Medicare Annual Wellness (AWV) Medicare Annual Wellness (AWV) [facility] Start: 03-09-2024 COVID-19 Vaccine ( season) COVID-19 Vaccine ( season) [facility] Start: 03-09-2024 Influenza vaccination Influenza Vaccine (#1) [facility] Start: 05-10-2023 FUV, Provider: Lacey Damico, Status: Pen, Time: 9:00 AM FUV, Provider: Lacey Damico, Status: Pen, Time: 9:00 AM [facility] 250 DO Work Phone: Start: 04-18-2023 Screening for malignant neoplasm of breast Mammogram [facility] Start: 04-18-2023 Screening for osteoporosis Bone Density Scan [facility] Start: 03-09-2023 Influenza vaccination Influenza Vaccine (#1) [facility] Start: 05-11-2022 FUV, Provider: Julio Christian, Status: Pen, Time: 1:45 PM FUV, Provider: Julio Christian, Status: Pen, Time: 1:45 PM [facility] 250 DO Work Phone: Start: 10-18-2021 COVID-19 Vaccine (6 - Additional dose for Soha series) COVID-19 Vaccine (6 - Additional dose for Soha series) [facility] Start: 2021 ADVANCE DIRECTIVE DISCUSSION ADVANCE DIRECTIVE DISCUSSION [facility] Start: 2021 BONE DENSITY BONE DENSITY [facility] Start: 2021 PNEUMOVAX AGE 65 AND OVER WITH 5YR LOOKBACK (#1) PNEUMOVAX AGE 65 AND OVER WITH 5YR LOOKBACK (#1) [facility] Start: 05-30-2021 FUV, Provider: Julio Christian, Status: Pen, Time: 8:45 AM TOANV, Provider: Julio Christian, Status: Sg, Time: 8:45 AM [facility] 250 DO Work Phone: Start: 09-29-2017 Adult depression screening assessment DEPRESSION SCREENING [facility] Start: 2016 RSV High Risk: (Elderly (60+) or Population) (1 - Risk 60-74 years 1-dose series) RSV High Risk: (Elderly (60+) or Population) (1 - Risk 60-74 years 1-dose series) [facility] Start: 2006 SHINGRIX VACCINE (1 of 2) SHINGRIX VACCINE (1 of 2) [facility] Start: 2001 COLOGUARD (FIT-DNA) COLOGUARD (FIT-DNA) [facility] Start: 2001 Colonoscopy COLONOSCOPY [facility] Start: 2001 COLORECTAL CANCER SCREENING COLORECTAL CANCER SCREENING [facility] Start: [address] COLONOGRAPHY [facility] Start: 2001 DIABETES SCREEN DIABETES SCREEN [facility] Start: 2001 FECAL OCCULT BLOOD FECAL OCCULT BLOOD [facility] Start: 2001 LIPID SCREEN LIPID SCREEN [facility] Start: 2001 SIGMOIDOSCOPY SIGMOIDOSCOPY [facility] Start: 1996 Mammography MAMMOGRAM [facility] Start: 1978 DTaP/Tdap/Td Vaccines (1 - Tdap) DTaP/Tdap/Td Vaccines (1 - Tdap) [facility] Start: 1975 Urine microalbumin profile DTAP,TDAP,TD (1 - Tdap) [facility] Start: 1974 ANNUAL PCP TEAM CHRONIC DISEASE VISIT ANNUAL PCP TEAM CHRONIC DISEASE VISIT [facility] Start: 1974 BP CONTROLLED (<130/80) BP CONTROLLED (<130/80) [facility] Start: 1974 Diabetes mellitus screening Diabetes Screening [facility] Start: 1974 HEPATITIS C SCREENING HEPATITIS C SCREENING [facility] Start: 1974 Hepatitis C screening Hepatitis C Screening [facility] Start: 1974 HIV SCREENING HIV SCREENING [facility] Start: 1956 Lipid [address]id Panel [facility] Start: 1956 Medicare Annual Wellness Visit Medicare Annual Wellness Visit (AWV) [facility] Start: 1956 Screening for malignant neoplasm of colon [facility] Patient Education Vertigo ED [facility] Work Phone: Patient referral [facility] Work Phone: THIN PREP TIS PAP AN D HR HPV DNA THIN PREP TIS PAP AND HR HPV DNA Pathology and Cytology Routine Well woman exam with routine gynecological exam Ordered: 04/24/2024 [facility] Comment on above: Ordered: 04/24/2024 [facility] Immunizations Immunization Date Immunization Notes Care Provider Eula de la rosa 06-20-2022 influenza virus vaccine, unspecified formulation Morgan TILLMAN [facility] 06-20-2022 Influenza, injectabl e, Madin Hallie Canine Kidney, preservative free, quadrivalent Lacey Damico MD Work Phone: [facility] Work Phone: 04-04-2022 zoster vaccine recombinant Conchis Zamora Work Phone: [facility] 11-08-2021 Prevnar 20 0.5 ML Intramuscular Suspension Prefilled Syringe Conchis Zamora Work Phone: [facility] 10-10-2021 zoster vaccine recombinant Conchis Zamora Work Phone: [facility] 06-19-2021 Pfizer-BioNTech COVID-19 Vacc 30 MCG/0.3ML Intramuscular Suspension Conchis Zamora Work Phone: [facility] 06-17-2021 influenza, injectabl e, quadrivalent, contains preservative Rain Starr [facility] 06-15-2021 influenza virus vaccine, unspecified formulation Morgan TILLMAN [facility] 06-15-2021 Influenza, injectabl e, Madin Hallie Canine Kidney, preservative free, quadrivalent Conchis Kori Petznick Work Phone: [facility] 250 DO Work Phone: 10-07-2020 Pfizer-BioNTech COVID-19 Vacc 30 MCG/0.3ML Intramuscular Suspension Conchis Zamora Work Phone: [facility] 10-01-2020 SARS-CoV-2 (COVID-19 ) Ad26 vaccine, recombinant Morgan TILLMAN [facility] [facility] 09-16-2020 Pfizer-BioNTech COVID-19 Vacc 30 MCG/0.3ML Intramuscular Suspension Conchis Zamora Work Phone: [facility] 09-10-2020 SARS-CoV-2 (COVID-19 ) Ad26 vaccine, recombinant Morgan TILLMAN [facility] 04-19-2020 influenza virus vaccine, unspecified formulation Ludmila Ruff [facility] 04-19-2020 influenza, injectabl e, madin hallie canine kidney, preservative free Conchis Sheikh Petznick Work Phone: [facility] 250 DO Work Phone: 06-20-2019 influenza virus vaccine, unspecified formulation Morgan TILLMAN [facility] 06-20-2019 Influenza, injectabl e, Madin Hallie Canine Kidney, quadrivalent with preservative Conchis Zamora Work Phone: [facility] 250 DO Work Phone: 06-17-2018 influenza virus vaccine, unspecified formulation Morgan TILLMAN [facility] 06-17-2018 Influenza, injectabl e, Madin Roseau Canine Kidney, preservative free, quadrivalent Conchis Zamora Work Phone: [facility] 250 DO Work Phone: 01-02-2007 tetanus toxoid, adsorbed Conchis Zamora Work Phone: [facility] Payers Date Payer Category Payer Medicare (Managed Care) 1.2. [id number] 2022 Unknown 2021 Unknown ANTHEM BLUE [facility] S AND BLUE [facility] ANTHEM MEDIBLUE ACCESS [id number] 2021-Present [phone] [address] [place] [address] [facility] [id number] .[id number] 2020 Unknown [id number] 1959 Medicare [id number] 2.16.840.1.683500.19 1959 Self-pay 1955 Unknown [id number] 2.16.840.1.396853.3.579.2 .356 1956 Unknown [id number] 2.16.840.1.973368.3.579.2 .356 1956 Unknown [id number] 2.16.840.1.941278.3.579.2 .1068 1956 Unknown [id number] 2.16.840.1.790286.3.579.2 .593 1956 Unknown [id number] 2.16.840.1.987723.3.579.2 .593 1956 Unknown [id number] 2.16.840.1.635930.3.579.2 .593 1956 Unknown [id number] 2.16.840.1.108076.3.579.2 .593 1956 Unknown [id number] 2.16.840.1.125270.3.579.2 .593 1956 Unknown [id number] 2.16.840.1.339656.3.579.2 .727 1956 Unknown [id number] 2.16.840.1.937358.3.579.2 .727 1956 Unknown [id number] 2.16.840.1.210449.3.579.2 .727 1956 Unknown [id number] 2.16.840.1.843296.3.579.2 .1244 1956 Unknown [id number] 2.16.840.1.442732.3.579.2 .1259 1956 Unknown [id number] 2.16.840.1.824463.3.579.2 .1259 1956 Unknown [id number] 2.16.840.1.520509.3.579.2 .1259 1956 Unknown [id number] 2.16.840.1.548107.3.579.2 .1259 1956 Unknown [id number] 2.16.840.1.562208.3.579.2 .1259 1956 Unknown [id number] 2.16.840.1.215633.3.579.2 .1259 1956 Unknown [id number] 2.16.840.1.175945.3.579.2 .1259 1956 Unknown [id number] 2.16.840.1.900167.3.579.2 .1259 1956 Unknown [id number] 2.16.840.1.800364.3.579.2 .1258 1956 Unknown [id number] 2.16.840.1.041540.3.579.2 .1258 1956 Unknown [id number] 2.16.840.1.456836.3.579.2 .1258 1956 Unknown [id number] 2.16.840.1.395475.3.579.2 .1258 1956 Unknown [id number] 2.16.840.1.727706.3.579.2 .1258 1956 Unknown [id number] 2.16.840.1.936612.3.579.2 .1258 1956 Unknown [id number] 2.16.840.1.115101.3.579.2 .1258 1956 Unknown [id number] 2.16.840.1.449311.3.579.2 .1258 1956 Unknown [id number] 2.16.840.1.572996.3.579.2 .1258 1956 Unknown [id number] 2.16.840.1.281427.3.579.2 .1258 1956 Unknown [id number] 2.16.840.1.012737.3.579.2 .1258 1956 Unknown [id number] 2.16.840.1.601738.3.579.2 .1258 1956 Unknown [id number] 2.16.840.1.545837.3.579.2 .1258 1956 Unknown [id number] 2.16.840.1.385730.3.579.2 .1258 1956 Unknown [id number] 2.16.840.1.742461.3.579.2 .125 1956 Unknown [id number] 2.16.840.1.488921.3.579.2 .1258 1956 Unknown [id number] 2.16.840.1.845311.3.579.2 .1258 1956 Unknown [id number] 2.16.840.1.657398.3.579.2 .1258 1956 Unknown [id number] 2.16.840.1.285154.3.579.2 .1258 1956 Unknown [id number] 2.16.840.1.898899.3.579.2 .1258 1956 Unknown [id number] 2.16.840.1.584094.3.579.2 .1258 1956 Unknown [id number] 2.16.840.1.450340.3.579.2 .1258 1956 Unknown [id number] 2.16.840.1.170177.3.579.2 .1258 1956 Unknown [id number] 2.16.840.1.546451.3.579.2 .1258 1956 Unknown [id number] 2.16.840.1.359504.3.579.2 .1258 1956 Unknown [id number] 2.16.840.1.578504.3.579.2 .1258 1956 Unknown [id number] 2.16.840.1.226522.3.579.2 .1258 1956 Unknown [id number] 2.16.840.1.369408.3.579.2 .1258 1956 Unknown [id number] 2.16.840.1.742665.3.579.2 .1258 1956 Unknown [id number] 2.16.840.1.690422.3.579.2 .1258 1956 Unknown [id number] 2.16.840.1.899905.3.579.2 .1259 1956 Unknown [id number] 2.16.840.1.430852.3.579.2 .1259 Unknown [id number] Unknown [id number] Unknown [id number] 2.16.840.1.712624.3.579.2 .531 Social History Date Type Detail Facility Start: 05-10-2023 End: 07-09-2023 Social alcohol use Social alcohol use [facility] Start: 08-12-2021 End: 01-17-2024 Tobacco smoking status NHIS Ex-smoker [facility] End: 07-09-1989 History of tobacco use Current smoker [facility] Start: 08-12-2021 End: 01-17-2024 Tobacco use and exposure Smokeless tobacco non-user [facility] Start: 08-12-2021 End: 04-24-2024 Alcohol intake Current drinker of alcohol (finding) [facility] Start: 08-12-2021 History SDOH Alcohol Comment couple drinks weekly [facility] Start: 1955 Sex Assigned At Not on file [facility] Start: 03-28-2021 End: 01-17-2023 Tobacco smoking status Never smoked tobacco (finding) [facility] Tobacco smoking status Never [facility] Start: 05-10-2023 End: 07-09-2023 Sex Assigned At Female [email or web address] Other Start: 1955 Sex Assigned At Female [facility] Start: 05-10-2023 Alcohol Comment occasional wine/ mixed drink [facility] Work Phone: Start: 04-30-2023 End: 05-12-2024 Exposure to SARS-CoV-2 (event) Not sure 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 Cherie Mcclellan DO - 04/23/2024 8:45 AM Huyen Damico MD - 05/10/2023 9:00 AM EDT Note Date & Type Note Facility 05-12-2024 History of Present illness Narrative Last office visit May 2023. Subjective : Continues to have palpitations which she describes as a flip-flopping sensation, not associated with lightheadedness presyncope or syncope, not associated with activity, sporadic. Blood pressure elevated 158/98 recheck. No chest pressure tightness or heaviness. History so Far : Palpitations (785.1) (R00.2) PVC symptomatic Reported 3% PVC burden Joel alex [facility] summer 2021. We will request records. [...] Objective Wt Readings from Last 3 Encounters: 05/12/24 66.2 kg (146 lb) 05/10/23 64.9 kg (143 lb) 05/15/22 67.6 kg (149 lb) Vitals: 05/12/24 0913 BP: (!) 152/94 BP Location: Left arm Patient Position: Sitting Pulse: 68 Weight: 66.2 kg (146 lb) Height: 1.575 m (5' 2 ) Physical Exam: GENERAL APPEARANCE: in no acute [...] noted. Meds: Current Outpatient Medications Medication Instructions calcium carbonate 600 mg calcium (1,500 mg) tablet 1 tablet, Daily coenzyme Q-10 200 mg, Daily estradiol (ESTRACE) 1 g, 2 times weekly ibandronate (BONIVA) 150 mg, Every 30 days multivit-min/ferrous fumarate (MULTI VITAMIN ORAL) 1 tablet, Daily pantoprazole (ProtoNix) 40 mg EC tablet 1 tablet, Daily PARoxetine (Paxil) 20 mg tablet 1 tablet, Daily Allergies Allergen Reactions Clarithromycin Unknown LABS: 08/2023 total cholesterol 14 triglycerides 132 HDL 57 LDL 134 liver enzymes normal sodium 141 potassium 4.5 hemoglobin 14 hematocrit 44 Patient Active Problem List Diagnosis Date Noted Former smoker 05/12/2024 Agatston coronary artery calcium score less than 100 05/10/2023 Essential hypertension 05/09/2023 Hyperlipidemia 05/09/2023 Palpitations 05/09/2023 BMI 26.0-26.9,adult 05/09/2023 Assessment: 1. Essential hypertension Follow Up In Cardiology 2. Palpitations Follow Up In Cardiology 3. Mixed hyperlipidemia 4. Medication course changed 5. BMI 26.0-26.9,adult 6. Former smoker Clinical decision making: Add magnesium oxide 400 mg p.o. daily Increase rosuvastatin from 10 mg daily to 20 mg daily Increase metoprolol succinate to 50 mg daily Maxide 25 mg p.o. daily Basic metabolic profile liver and lipid profile in 3 months Follow up : 6 months Provider Attestation - Scribe documentation All medical record entries made by the Scribe were at my direction and personally dictated by me. I have reviewed the chart and agree that the record accurately reflects my personal performance of the history, physical exam, discussion and plan. Scribe Attestation By signing my name below, I, Yonathan Marcum LPN attest that this documentation has been prepared under the direction and in the presence of Lacey Damico MD. documented in this encounter [facility] Work Phone: 05-12-2024 Instructions Komal Pandya LPN - 05/12/2024 9:00 AM EST Please bring all medicines, vitamins, and herbal supplements with you when you come to the office. Prescriptions will not be filled unless you are compliant with your follow up appointments or have a follow up appointment scheduled as per instruction of your physician. Refills should be requested at the time of your visit. BMI was above normal measurement. Current weight: 66.2 kg (146 lb) Weight change since last visit (-) denotes wt loss 3 lbs Weight loss needed to achieve BMI 25: 9.6 Lbs Weight loss needed to achieve BMI 30: -17.7 Lbs Provided instructions on dietary changes Provided instructions on exercise. documented in this encounter [facility] Work Phone: 04-24-2024 History of Present illness Narrative Reason [...] Noted Age-related osteoporosis without current pathological fracture ([facility]) 01/10/2023 Anxiety 03/03/2020 Dukes's esophagus with dysplasia 03/03/2020 Chronic cystitis 01/10/2023 Dupuytrens contracture 04/01/2018 Dysphagia 01/10/2023 Eosinophilic esophagitis 01/10/2023 Gastroesophageal reflux disease 03/03/2020 Hemorrhoids 01/10/2023 Hyperlipidemia (CMS/[facility]) 03/06/2017 Microscopic hematuria 01/10/2023 Mitral valve prolapse [...] Personal history of smoking 01/10/2023 Pure hypercholesterolemia ([facility]/HCC) 08/12/2021 Vitamin D deficiency 10/07/2016 Balance disorder 01/10/2023 BPPV (benign paroxysmal positional vertigo), left 01/12/2023 BMI 26.0-26.9,adult 05/09/2023 Palpitations 05/09/2023 Arthritis of hip 04/19/2022 Urge incontinence 07/10/2023 Past Medical History: Diagnosis Date Allergies Asthma (CMS/HCC) Dukes esophagus Breast lump Diverticulitis HTN (hypertension) (CMS/HCC) Ocular migraine (CMS/[facility]) ARINA (obstructive sleep apnea) Rotator cuff tear arthropathy, unspecified laterality HISTORY PAST MEDICAL HISTORY SOCIAL HISTORY Past Medical History: Diagnosis Date Allergies Anxiety Arthritis of hip 04/19/2022 Asthma (CMS/HCC) Dukes esophagus BPPV (benign paroxysmal positional vertigo), left 01/12/2023 Breast cancer screening by mammogram 04/18/2022 neg Breast lump Diverticulitis HTN (hypertension) (CMS/HCC) Hyperlipidemia (CMS/HCC) Hypertension, essential (CMS/HCC) 08/12/2021 Mitral valve prolapse Ocular migraine (CMS/HCC) ARINA (obstructive sleep apnea) Mild, not tx [...] ROTATOR CUFF REPAIR Right 01/31/2024 DEBORAH W/ SAD ; DR BRADFORDANIC TONSILLECTOMY REVIEW OF SYSTEMS Review of Systems: [...] nursing note reviewed. Exam conducted with a marine pipe welder present. Vitals: Estimated body mass index is [...] Tyler Ervin DO documented in this encounter [facility] 04-23-2024 History of Present illness Narrative Images from the original note were not included. HISTORY OF PRESENT ILLNESS: POST OP PT Ivonne Echevarria is an 68 y.o. @ female. (EST PT) S/P (R) SHOULDER SCOPE W/ RCR (DRR) & SAD 01/31/24 (11WKS 6DAYS). DOING WELL. CONTINUES TO HAVE SOME MILD SORENESS. CONTINUES THERAPY 2x WEEKLY @ [facility], WITH HEP. CONTINUES INCREASING ROM. NO PAIN [...] Procedures Ambulatory referral to Physical Therapy [place] May start active resistance / strengthening (R) [...] Cherie Mcclellan D.O. documented in this encounter [facility] 04-22-2024 Hospital Discharge instructions Patient Education 04/22/2024 [...] reconstructed. Follow these instructions at home: Take kjii-oix-mzuebcg and prescription medicines only as told by [...] provider. Document Revised: 04/19/2023 Document Reviewed: 04/19/2023 FDTEK Patient Education 2023 [employer]. Follow Up Care 04/18/2024 11:00:24 With:PRIMO GRUBER, Morgan Haynes, URL Address: [address] [place], [place] [id number]- When: Unknown Comments:MARKOS JOSEPH [facility] 04-22-2024 Note Patient Education Urology Urethral Stricture [...] Follow these instructions at home: ? Take fcyp-hzb-frfdywl and prescription medicines only as told by [...] provider. Document Revised: 04/19/2023 Document Reviewed: 04/19/2023 FDTEK Patient Education ? 2023 [employer]. [facility] 04-14-2024 History of Present illness Narrative [...] She has an upcoming appointment with her realty loan specialist next month to address her heart palpitations. [...] (CMS/HCC) 08/12/2021 Mitral valve prolapse Ocular migraine (CMS/HCC) ARINA (obstructive sleep apnea) Mild, not tx Rotator cuff tear arthropathy, unspecified laterality left Past Surgical History: Procedure Laterality Date BREAST LUMPECTOMY SECTION, LOW TRANSVERSE COLONOSCOPY 2014 COLONOSCOPY 10/03/2018 ESOPHAGOSCOPY / EGD 09/2017 SHOULDER ARTHROSCOPY Left 09/27/2018 SHOULDER ARTHROSCOPY W/ ROTATOR CUFF REPAIR Right 01/31/2024 DEBORAH Mcrae/ LALO ; DR BRADFORDANIC TONSILLECTOMY Depression: Not at risk (04/14/2024) PHQ-2 [...] [facility] I reviewed the patients past medical [...] a topical steroid will be sent to [facility] in [place]. She was instructed to apply it carefully to avoid getting it in her eyes. Potential initial tingling was discussed, which should subside quickly. CONCHIS ZAMORA D.O. This note was entered using [employer] copilot. Grammatical and dictation errors maybe present in translation *I have reviewed and reconciled the history and medication list with the patient today* documented in this encounter [facility] 04-10-2024 History of Present illness Narrative [...] quite a bit, mostly at night. Precautions: [place] Subjective: Pt states she will have some [...] instructed in home exercise program. - met Enforcement Manager Goals: To be met in 10 weeks [...] sign below. Date: documented in this encounter [facility] 05-10-2023 History of Present illness Narrative [...] PVC symptomatic Reported 3% PVC burden Joel alex [facility] summer 2021. We will request records. [...] Lacey Damico MD documented in this encounter [facility] Work Phone: 05-10-2023 Instructions Nancy Gutierrez LPN [...] of your visit. documented in this encounter [facility] Work Phone: 01-17-2023 Evaluation note Encounter Date [...] IS UNDER EXCELLENT CONTROL WITH PPI DAILY [email or web address] Other 07-10-2023 Hospital Discharge instructions Follow Up Care 01/15/2023 09:36:38 With:PRIMO GRUBER, MALLORY Sultana Address: [address] [place] [address] [place] [address]- When: Unknown [facility] 07-10-2023 Hospital Discharge instructions Patient Education 01/15/2023 09:26:30 Urinary Tract Infection, Adult, Surd-bk-Dfcn Urinary Tract Infection, Adult A urinary tract [...] Follow these instructions at home: Medicines Take lpdt-rnh-sjxvgvy and prescription medicines only as told by [...] provider. Document Revised: 02/04/2021 Document Reviewed: 02/04/2021 FDTEK Patient Education 2022 [employer]. Follow Up Care 01/20/2022 09:06:12 With:PRIMO GRUBER, oMrgan Haynes, URL Address: [facility] [address], [place] [phone] When:Within 1 Year(s) [facility] 04-03-2023 Evaluation note* Encounter Date Diagnosis Assessment [...] fiber. Patient to start Metamucil fiber OTC. [email or web address] Other 10-08-2022 NotePROCEDURE: XR HAND RT MIN 3V HISTORY: Bone injury ; third digit bruising; no known injury COMPARISON: None. FINDINGS: BONES:No fracture, acute abnormality, or significant arthropathy. SOFT TISSUES:No visible soft tissue swelling. EFFUSION:None visible. OTHER: Negative. IMPRESSION: 1. No appreciable bone or soft tissue abnormality to account for patient's symptoms. Electronically authenticated by: BRIAN STEVEN Date: 2022-04-15 16:35[facility]07-15-2022 Hospital Discharge instructions Patient Education 01/20/2022 [...] reconstructed. Follow these instructions at home: Take goiy-xur-vxkalnt and prescription medicines only as told by [...] 07/21/2016 Document Revised: 02/05/2019 Document Reviewed: 02/05/2019 FDTEK Patient Education 2020 [employer]it Online. Follow Up Care 01/17/2021 13:06:47 With:PRIMO GRUBER, Morgan Haynes, URL Address: [address] [place], [place] [id number]- When:Within 1 Year(s) [facility] 04-21-2022 NoteHNO ID: [id number] Author: Adri Mejía Pss Service: ? Author Type: ? Type: Progress Notes Filed: 10/27/2021 1:50 PM Note Text: Sleep Study Check-In Documentation Date: October 27, 2021 Name: Ivonne Echevarria Comments: HST was returned in working order with all sleep questionnaires Adri Mejía [place] [address]-21-2022 History of Present illness Narrative* Adrirell Lozano - 10/27/2021 1:50 PM EDT Sleep Study Check-In Documentation Date: October 27, 2021 Name: Ivonne Echevarria Comments: HST was returned in working order with all sleep questionnaires Adri Lozano * Koko Tolentino - 10/24/2021 9:20 AM EDT Nomad# [id number] , date shipped out 10/24 Tracking mailout:[id number] Tracking return: [id number] * Ester Del Angel MD - 10/17/2021 12:15 PM EDT October 17, 2021 Standing PSG Orders signed in the last 90 days None Future PSG Orders signed in the last 90 days Ordered Auth. provider HOME SLEEP APNEA TEST (HSAT) [[id number]] 09/22/21 Gasper Hamilton MD Assoc. diagnoses: Heart [...] from Dr. Gasper Hamilton MD, a B. [facility] Staff. Visit prep complete. Comments :No The sleep study is scheduled for 10/25. Insurance: Payor: [employer] AND [employer] / Plan: ANTHEM MEDIBLUE ACCESS / Product Type: PPO / Payor/Plan Subscr Sex Relation Sub. Ins. ID Effective Group Num 1. MARKELL Sheikh* IVONNE ECHEVARRIA J 1955 Female Self [id number] 08/09/21 [id number] [address] Ivette Caro Pss [facility] NoteHNO ID: [id number] Author: Koko Tolentino Service: ? Author Type: ? Type: Progress Notes Filed: 10/27/2021 1:50 PM Note Text: Nom[facility]# [id number] , date shipped out 10/24 Tracking mailout:[id number] Tracking return: [id number]2022 NoteHNO ID: [id number] Author: Gasper Hamilton MD Service: ? Author Type: Physician Type: Progress Notes Filed: 10/19/2021 4:38 PM Note Text: [facility] [place] Department of Cardiovascular Medicine VIRTUAL VIDEO VISIT [...] followup. CARDIAC HISTORY: ? Palpitations, evaluated by [facility] as well as Dr. Schneider?in [place]. ?Chronic in nature. ?Has been on atenolol [...] x 2 - Hypertension (more content not included)...[facility] 10-19-2021 History of Present illness Narrative* Gasper Hamilton MD - 10/19/2021 4:24 PM EDT Images from the original note were not included. [facility] [place] Department of Cardiovascular Medicine VIRTUAL VIDEO VISIT [...] for followup. CARDIAC HISTORY: Palpitations, evaluated by [facility] as well as Dr. Schneider in [place]. Chronic in nature. Has been on atenolol [...] 03/2021 of 103 Asthma Former smoker Per 2020 outside records, indicates some tension [...] 19, 2021 4:25 PM [facility] NoteHNO ID: [id number] Author: Ester Del Angel MD Service: ? Author Type: Physician Type: Progress Notes Filed: 10/27/2021 1:50 PM Note Text: October 17, 2021 Standing PSG Orders signed in the last 90 days None Future PSG Orders signed in the last 90 days Ordered Auth. provider HOME SLEEP APNEA TEST (HSAT) [[id number]] 09/22/21 Gasper Hamilton MD Assoc. diagnoses: Heart [...] plan. Ester Del Angel MD 8:17 PM, 10/17/2021[facility]04-08-2022 NoteHNO ID: [id number] Author: Ivette Caro [facility] Service: ? Author Type: ? Type: Progress Notes Filed: 10/27/2021 1:50 PM Note Text: October 14, 2021 An order has been received for Home Sleep Apnea Test (HSAT) from Dr. Gasper Hamilton MD, a B. [facility] Staff. Visit prep complete. Comments :No The sleep study is scheduled for 10/25. Insurance: Payor: [employer] CROSS AND BLUE SHIELD / Plan: ANTHEM MEDIBLUE ACCESS / Product Type: PPO / Payor/Plan Subscr Sex Relation Sub. Ins. ID Effective Group Num 1. IVONNE VILLALPANDO 1955 Female Self [id number] 08/09/21 [id number] [address] Ivette Gordo [facility]03-17-2022 NoteHNO ID: [id number] Author: Gasper Hamilton MD Service: ? Author Type: Physician Type: Progress Notes Filed: 09/22/2021 8:15 AM Note Text: Heart, V[facility] Thor[facility] [place] Department of Cardiovascular Medicine VIRTUAL VIDEO VISIT [...] ? CARDIAC HISTORY: ? Palpitations, evaluated by [facility] as well as Dr. Schneider in [place]. Chronic in nature. Has been on atenolol [...] 2012 was normal though did note exercise-induced ST-T [...] Mother - Heart At (more content not included)...[facility]02-08-2022 Evaluation note* Encounter Date Diagnosis Assessment Notes Treatment Notes Treatment Clinical Notes Aug, GERD (gastroesophageal reflux disease) (ICD-10 - K21.9) Aug, Barretts esophagus (ICD-10 - K22.70) Aug, Constipation (ICD-10 - K59.00) CONTINUE MIRALAX DIRECTED [email or web address] Other 02-04-2022 NoteHNO ID: [id number] Author: Gilmar Jones DO Service: ? Author Type: Physician Type: Procedures Filed: 09/22/2021 2:50 PM Note Text: Patient Name: Ivonne Echevarria : 1955 Ordering Provider: GASPER HAMILTON Indication: R00.2 Palpitations Type of Monitor: Extended Monitoring-[employer]io Patch Enrollment Dates: 09/02/2021-09/16/2021[facility]02-04-2022 Note HNO ID: [id number] Author: Gasper Hamilton MD Service: ? Author Type: Physician Type: Progress Notes Filed: 08/12/2021 11:45 AM Note Text: Heart and Vascular [place] Emmett Coy Department of Cardiovascular Medicine SECTION OF CLINICAL CARDIOLOGY OUTPATIENT VISIT DATE August 12, 2021 OUTPATIENT VISIT TYPE NEW PRIMARY CARE PHYSICIAN : Conchis Zamora, DO [address] [place] [address] REFERRING PHYSICIAN: Teagan Szymanski [address] [facility] [address] CHIEF COMPLAINT: Second opinion Cardiovascular evaluation HISTORY OF PRESENT ILLNESS: Ms. Echevarria is a 65 year old female who presents today for cardiovascular evaluation. CARDIAC HISTORY: ? Palpitations, evaluated by [facility] as well as Dr. Schneider in [place]. Chronic in nature. Has been on atenolol [...] burden with a Zio (she's going to [place] for two weeks but wishes to wear [...] SUNDAY AND ONE ON (more content not included)...[facility] Future Appointments Appointment Date:01/20/2022 08:15:00 AM Scheduled Provider:Morgan TILLMAN MD Location:[facility] Appointment Type:URO Office Visit Diagnostic Tests Pending * [facility] Future Appointments Appointment Date:01/20/2022 08:15:00 AM Scheduled Provider:Morgan TILLMAN MD Location:[facility] Appointment Type:URO Office Visit [facility] evaluation + Plan note Future Appointments Appointment Date:01/15/2023 08:45:00 AM Scheduled Provider:Morgan TILLMAN MD Location:[facility] Appointment Type:URO Office Visit [facility] evaluation + Plan note Future Appointments Appointment Date:01/15/2023 08:45:00 AM Scheduled Provider:Morgan TILLMAN MD Location:[facility] Appointment Type:URO Office Visit Diagnostic Tests Pending * Urine [facility] Future Appointments Appointment Date:01/21/2024 08:45:00 AM Scheduled Provider:Morgan TILLMAN MD Location:[facility] Appointment Type:URO Office Visit [facility] evaluation + Plan note Future Appointments Appointment Date:04/22/2024 09:00:00 AM Scheduled Provider:EDGAR Ruff APRN, [place] X Location:[facility] Appointment Type:URO Office Visit [facility] evaluation + Plan note Future Appointments Appointment Date:06/23/2024 03:00:00 PM Scheduled Provider:Morgan TILLMAN MD Location:[facility] Appointment Type:URO Office Visit [facility] evaluation note* Diagnosis Heart palpitations- Primary Palpitations [facility] Diagnosis Sleep apnea, unspecified type- Primary documented in this encounter [facility] Other Evaluation noteNo assessment information available [facility] Work Phone: Evaluation note* Diagnosis Essential hypertension Unspecified essential hypertension Mixed hyperlipidemia Palpitations BMI 26.0-26.9,adult documented in this encounter [facility] Work Phone: Evaluation note* Diagnosis S/P arthroscopy [...] [facility] Diagnosis Right shoulder pain, unspecified chronicity- Primary S/P arthroscopy of right shoulder [facility]* Diagnosis Essential hypertension Unspecified essential hypertension Palpitations Mixed hyperlipidemia Medication course changed BMI 26.0-26.9,adult Former smoker Personal history of tobacco use, presenting hazards to health documented in this encounter [facility] Work Phone: Evaluation note* Diagnosis Onset Date Resolution Status Abdominal pain acute Constipation acute GERD (gastroesophageal reflux disease) acute [facility] Work Phone: Evaluation note* Diagnosis Right shoulder pain, unspecified chronicity- Primary S/P arthroscopy of right shoulder documented in this encounter [facility]* Diagnosis Right shoulder pain, unspecified chronicity- Primary S/P arthroscopy of right shoulder documented in this encounter [facility] HealthcareHistory general Narrative - Reported* Type Description Date Medical History acid reflux Medical History Barretts esophagus Medical History allergies Medical History Panic attacks Surgical History C section Surgical History tonsillectomy Hospitalization History child [email or web address] Other History of Present illness Narrative* Ms. [...] or sooner if she has further problems. [facility] Work Phone: History of Present illness [...] medication regimen. She denies medication side effects. [facility] Work Phone: Hospital course Narrative No data available for this section [facility] Discharge instructions No data available for this section [facility] progress note No data available for this section [facility] reason for referral (narrative)* Consultation (Routine) - Authorized Specialty Diagnoses / Procedures Referred By Octaviano t Referred To Contact Cardiology Diagnoses Essential hypertension Palpitations Procedures Follow Up In Cardiology Lacey Damico MD [address] [facility] [address] [place] [address] Lacey Damico MD [address] [facility] [address] [place] [address] Referral ID Status Reason Start Date Expiration Date V isits Requested Visits Authorized [id number] Authorized 05/10/2023 05/09/[address] [facility] Work Phone: Reason for visit Narrative* Consultation (Routine) - Authorized Specialty Diagnoses / Procedures Referred By Contac t Referred To Contact Physical Therapy Diagnoses S/P arthroscopy of right shoulder Procedures TX OFFICE/OUTPATIENT NEW HIGH MDM 60 MINUTES Conchis Bueno PA [address] [facility] [address] [place] [address] Rain Starr, ELVA Referral ID Status Reason Start Date Expiration Date Visits Requested Visits Authorized [id number] Authorized Consult and Treat 02/14/2024 08/12/2024 99 99 [facility] Narrative* Consultation (Routine) - Authorized Specialty Diagnoses / Procedures Referred By Contac t Referred To Contact Physical Therapy Diagnoses S/P arthroscopy of right shoulder Procedures TX OFFICE/OUTPATIENT NEW HIGH MDM 60 MINUTES Conchis Bueno PA [address] [facility] [address] [place] [address] Phone: tel: fax: Rain Starr, ELVA Referral ID Status Reason Start Date Expiration Date Visits Requested Visits Authorized [id number] Authorized Consult and Treat 02/14/2024 08/12/2024 99 99 [facility] Narrative* Consultation (Routine) - Closed Specialty Diagnoses / Procedures Referred By Contac t Referred To Contact Physical Therapy Diagnoses S/P arthroscopy of right shoulder Procedures TX OFFICE/OUTPATIENT NEW HIGH [facility] 60 MINUTES Conchis uBeno PA [address] [facility] [address] [place] [address] Phone: tel: fax: Rain Starr, ELVA Referral ID Status Reason Start Date Expiration Date V isits Requested Visits Authorized [id number] Closed Consult and Treat 02/14/2024 08/12/2024 99 99 [facility] Healthcare Chief Complaint IVONNE ECHEVARRIA is [...] office follow-up. * She was evaluated by [facility] cardiology for second opinion regarding palpitations. [...] testing. * No caffeine, no alcohol, no zdlz-[id number] medications or energy drinks. * Encouraged to [...] Atrial fibrillation Unknown sister Diabetes mellitus Unknown Relationship Condition Age at Onset Recorded Date/T veronica mother Heart disease Unknown father Heart disease Unknown brother Malignant neoplasm of anus Unknown Malignant neoplasm of prostate Unknown brother Atrial fibrillation Unknown sister Diabetes mellitus Unknown father Unknown mother Unknown Summary Purpose Advance Directives No Advanced Directives Records Found Advance Directive Response Recorded Date/ Time Advance Directives No May 10, 2018 1:36pm Advance Directive Response Recorded Date/ Time Advance Directives No May 10, 2018 12:36pm Reason for Referral Specialty Diagnoses / Procedures Referred By Octaviano t Referred To Contact Diagnoses Sleep apnea, unspecified type Procedures CONSULT TO SLEEP MEDICINE - ADULT OFFICE/OUTPATIENT [facility] 60-74 MINUTES Gasper Hamilton MD [address] [place] [address] Referral ID Status Reason Start Date Expiration Date Visits Requested Visits Authorized [id number] Pending Review PCP Requested Referral 11/28/2021 11/28/2022 1 1 Chief Complaint and Reason for Visit Chief Complaint High BP dizzy Chief Complaint 1 yr follow up Reason for Visit Abdominal pain Constipation GERD (gastroesophageal reflux disease) Additional Source Comments Source Comments (unrecognize d section and content) In the event this informatio n is protected by the Federal Confidentiality of Alcohol and Drug Abuse Patient Records regulations: The Federal rules restrict any use of the information to criminally investigate or prosecute any alcohol or drug abuse patient.[facility] the event this information is protected by the Federal Confidentiality of Alcohol and Drug Abuse Patient Records regulations: The Federal rules restrict any use of the information to criminally investigate or prosecute any alcohol or drug abuse patient.[facility] Hospital[facility] the event this information is protected by the Federal Confidentiality of Alcohol and Drug Abuse Patient Records regulations: The Federal rules restrict any use of the information to criminally investigate or prosecute any alcohol or drug abuse patient.[facility] Reason for Visit (unrecogniz ed section and content) Reason Comments Follow Up Reason Comments HSAT Check In (Adult) Reason Comments Follow-up 1y Reason Comments Annual Exam Reason Comments Pain Post-op Reason Comments Well Women Visit Reason Comments Annual Exam Specialty Diagnoses / Procedures Referred By Contac t Referred To Contact Cardiology Diagnoses Essential hypertension Palpitations Procedures Follow Up In Cardiology Lacey Damico MD Phone: tel: fax: Lacey Damico MD [address] [address] Phone: tel: fax: Referral ID Status Reason Start Date Expiration Date V isits Requested Visits Authorized [id number] Authorized 05/10/2023 05/09/2024 1 1 Care Teams (unrecognized sec tion and content) Supervisor Chassis Assembly Relationship Specialty Start Date End Date Conchis Zamora [address] [place] [address] PCP - General Family Practice 05/23/16 Gasper Hamilton MD [address] [place], [place] [id number] Primary Staff Physician Cardiology 08/12/21 Supervisor Chassis Assembly Relationship Specialty Start Date End Date Conchis Zamora [address] [place] [address] PCP - General Family Practice 05/23/16 Gasper Hamilton MD [address] [place] [address] Primary Staff Physician Cardiology 08/12/21 Team Status: Active Member Role Status Dates Conchis Zamora DO Primary Care Provider Active Team Status: Inactive Member Role Status Dates Conchis Zamora DO Primary Care Provider Active Fozia Robert MD Emergency Provider Active Supervisor Chassis Assembly Relationship Specialty Start Date End Date Conchis Zamora DO [address] [facility] [address] [place] [address] PCP - General 07/09/99 Supervisor Chassis Assembly Relationship Specialty Start Date End Date Conchis Zamora DO [address] [place] [address] PCP - Devoted 07/09/22 Conchis Zamora DO [address] [place] [address] PCP - General Family Medicine 10/12/23 Supervisor Chassis Assembly Relationship Specialty Start Date End Date Conchis Zamora DO [address] [place] [address] PCP - Devoted 07/09/22 Conchis Zamora, DO [address] [place] [address] PCP - General Family Medicine 10/12/23 Supervisor Chassis Assembly Relationship Specialty Start Date End Date Conchis Zamora, DO [address] [place] [address] PCP - Devoted 07/09/22 Conchis Zamora, DO [address] [place] [address] PCP - General Family Medicine 10/12/23 Supervisor Chassis Assembly Relationship Specialty Start Date End Date Conchis Zamora, DO [address] [place] [address] PCP - Devoted 07/09/22 Conchis Zamora, DO [address] [place] [address] PCP - General Family Medicine 10/12/23 Supervisor Chassis Assembly Relationship Specialty Start Date End Date Conchis Zamora, DO [address] [place] [address] PCP - Devoted 07/09/22 Conchis Zamora, DO [address] [place] [address] PCP - General Family Medicine 10/12/23 Supervisor Chassis Assembly Relationship Specialty Start Date End Date Conchis Zamora, DO [address] [place] [address] PCP - Devoted 07/09/22 Conchis Zamora, DO [address] [place] [address] PCP - General Family Medicine 10/12/23 Supervisor Chassis Assembly Relationship Specialty Start Date End Date Conchis Zamora, DO [address] [place] [address] PCP - Devoted 07/09/22 Conchis Zamora, DO [address] [place] [address] PCP - General Family Medicine 10/12/23 Supervisor Chassis Assembly Relationship Specialty Start Date End Date Conchis Zamora, DO [address] [place] [address] PCP - Devoted 07/09/22 Conchis Zamora, DO [address] [place] [address] PCP - General Family Medicine 10/12/23 Supervisor Chassis Assembly Relationship Specialty Start Date End Date Conchis Zamora, DO [address] [place] [address] PCP - Devoted 07/09/22 Conchis Zamora, DO [address] [place] [address] PCP - General Family Medicine 10/12/23 Supervisor Chassis Assembly Relationship Specialty Start Date End Date Conchis Zamora, DO [address] [place] [address] PCP - Devoted 07/09/22 Conchis Zamora, DO [address] [place] [address] PCP - General Family Medicine 10/12/23 Supervisor Chassis Assembly Relationship Specialty Start Date End Date Conchis Zamora DO [address] [place] [address] PCP - Devoted 07/09/22 Conchis Zamora DO [address] [place] [address] PCP - General Family Medicine 10/12/23 Supervisor Chassis Assembly Relationship Specialty Start Date End Date Conchis Zamora DO [address] [place] [address] PCP - Devoted 07/09/22 Conchis Zamora DO [address] [place] [address] PCP - General Family Medicine 10/12/23 Supervisor Chassis Assembly Relationship Specialty Start Date End Date Conchis Zamora DO [address] [place] [address] PCP - Devoted 07/09/22 Conchis Zamora DO [address] [place] [address] PCP - General Family Medicine 10/12/23 Supervisor Chassis Assembly Relationship Specialty Start Date End Date Conchis Zamora DO PCP - General 07/09/99 Team Status: Inactive Member Role Status Dates Conchis Zamora DO Primary Care Provider Active Start: May 14, 2024 End: May 14, 2024 Malvin Westbrook MD Attending Provider Active S tart: May 14, 2024 End: May 14, 2024 Supervisor Chassis Assembly Relationship Specialty Start Date End Date GhadajamelDeisy stoddardtatiana Sheikh DO [address] [place] [address] PCP - Devoted 07/09/22 Conchis Zamora, DO [address] [place] [address] PCP - General Family Medicine 10/12/23 Supervisor Chassis Assembly Relationship Specialty Start Date End Date Charliearlyn Conchis Sheikh DO [address] [place] [address] PCP - Devoted 07/09/22 Conchis Zamora DO [address] [place] [address] PCP - General Family Medicine 10/12/23 INFORMATION SOURCE (unrecogn ized section and content) DATE CREATED AUTHOR 10/29/2021 [facility] DATE CREATED AUTHOR AUTHOR'S ORGANIZ ATION 11/10/2021 [facility] dical Specialist DATE CREATED AUTHOR AUTHOR'S ORGANIZ ATION 05/15/2022 [facility] DATE CREATED AUTHOR AUTHOR'S ORGANIZ ATION 05/15/2022 [employer] DATE CREATED AUTHOR AUTHOR'S ORGANIZ ATION 06/05/2022 [facility] DATE CREATED AUTHOR AUTHOR'S ORGANIZ ATION 09/25/2022 [facility] DATE CREATED AUTHOR AUTHOR'S ORGANIZ ATION 01/22/2023 [facility] DATE CREATED AUTHOR AUTHOR'S ORGANIZ ATION 04/24/2024 [facility] DATE CREATED AUTHOR AUTHOR'S ORGANIZ ATION 05/13/2024 [facility] DATE CREATED AUTHOR AUTHOR'S ORGANIZ ATION 05/18/2024 [facility] dical Specialists EPIC Goals (unrecognized section and [...] BE BASED ON THE PRIMARY CLINICAL RECORDS. [facility] [employer] [facility]. provides no warranty or guarantee of the accuracy or completeness of information in this document.
== END 2024-05-19 07:31 | disposition home or self-care (01) ==
LOC: MAMMO 07:30
PROVIDERS: Visit Provider Obstetrics & Gynecology
DX: Z12.31 Encounter for screening mammogram for malignant neoplasm of breast (principal); Z78.0 Asymptomatic menopausal state; Z80.3 Family history of malignant neoplasm of breast; Z80.8 Family history of malignant neoplasm of other organs or systems; M85.88 Other specified disorders of bone density and structure, other site
CPT/HCPCS: 77063; 77067; 77080

== ENCOUNTER 2025-05-12 12:08 | Outpatient (REF) | payer MEDICARE, SELFPAY ==
--- OUTSIDE RECORDS SUMMARY | 2025-04-13 04:30 | XMS_ITS ---
Author Organization [facility] [employer] [facility] Address [address] [address], [place] [address] Care Team Providers Care On Site Manager Name Role Phone AnnRio neely Unavailable [phone] REASON FOR VISIT Left Foot Pain Encounters Encounter Location Date Provider Diagnosis [facility], [address] [address], [place] [address] 04/13/2025 Rio Rebolledo Plan Of Treatment No Information Progress Notes * Ivonne ECHEVARRIADOB:1955 ([age] yo F)Acc No.[id number]:04/13/2025 Progress Notes Patient: Ivonne Mendoza :?KIRK ValdesOB:1955???Age:69 Y ???Sex:FemaleDate:04/13/2025Phone:Address:[address] [place], [place] [id number] Subjective: * Chief Complaints: * L eft Foot Pain * Electronic signature of Rio Rebolledo DPM MS on 05/12/2025 at 12:12 PM EST Sign off status: Pending * Provider: Doe Rebolledo DPM Date: 1 Generated for Printing/Faxing/eTransmitting on:?05/12/2025 12:12 PM EST
--- OUTSIDE RECORDS SUMMARY | 2025-05-12 09:00 | XMS_ITS | Encounter Summary ---
Author Organization [facility] Address [address] [place] [address] Care Team Providers Care Infrastructure Engineer Name Role Phone Arjun Izquierdo DO Primary Care Provider [phone] Arjun Izquierdo DO Unavailable [phone] Reason for Visit * ReasonCommentsGynecologic Exam Encounter Details DateTypeDepartmentCare Team (Latest Contact Info)Bejbsjfwwcm40/04/2025 9:00 AM ESTOffice Visit [facility] [address] [place] [id number] Tyler Ervin DO [address] Harlan Rodrigues, [facility]11 Well woman exam with routine gynecological exam; Breast cancer screening by mammogram; Postmenopausal state; Chronic left hip pain Social History Tobacco UseTypesPacks/DayYears UsedDateSmoking Tobacco: FormerCigarettesQuit: 07/09/1977Smokeless Tobacco: NeverAlcohol UseStandard Drinks/WeekCommentsYes3 (1 standard drink = 0.6 oz pure alcohol)1-2 drinks 2-3 times a weekHumiliation, Afraid, Rape, and Kick questionnaireAnswerDate RecordedWithin the last year, have you been afraid of your partner or ex-partner?No07/09/2023Within the last year, have you been humiliated or emotionally abused in other ways by your partner or ex-partner?No07/09/2023Within the last year, have you been kicked, hit, slapped, or otherwise physically hurt by your partner or ex-partner?No 07/09/2023Within the last year, have you been raped or forced to have any kind of sexual activity by your partner or ex-partner?No07/09/2023Social Connection and Isolation PanelAnswerDate RecordedIn a typical week, how many times do you talk on the phone with family, friends, or neighbors?More than three times a week07/09/2023How often do you get together with friends or relatives?Three times a week07/09/2023How often do you attend moravian or adventist services?1 to 4 times per year07/09/2023o you belong to any clubs or organizations such as moravian groups, unions, fraternal or athletic groups, or school groups?No 07/09/2023ttends Club or Organization MeetingsNot on file07/09/2023re you , , , , never , or living with a partner? Jjvanpv1407/09/2023UDIT-CAnswerDate RecordedQ1: How often do you have a drink containing alcohol?2-3 times a week07/09/2023Q2: How many drinks containing alcohol do you have on a typical day when you are drinking?1 or Q3: How often do you have six or more drinks on one occasion?Never07/09/2023Overall Financial Resource Strain (CARDIA)AnswerDate RecordedHow hard is it for you to pay for the very basics like food, housing, medical care, and heating?Not hard at all07/09/2023HQ-2AnswerDate RecordedPatient Health Questionnaire-2 Score0 02/16/2025[facility] [place] [facility] - Occupational Stress QuestionnaireAnswerDate RecordedDo you feel stress - tense, restless, nervous, or anxious, or unable to sleep at night because yourmind is troubled all the time - these days?Not at all07/09/2023Exercise Vital SignAnswerDate RecordedOn average, how many days per week do you engage in moderate to strenuous exercise (like a brisk walk)?1 day07/09/2023On average, how many minutes do you engage in exercise at this level?20 min07/09/2023Hunger Vital SignAnswerDate Recorded Within the past 12 months, you worried that your food would run out before you got the money to buymore.Never true07/09/2023Within the past 12 months, the food you bought just didn't last and you didn't have money to get more.Never true 07/09/2023RAPARE - TransportationAnswerDate RecordedIn the past 12 months, has lack of transportation kept you from medical appointments or from getting medications?No07/09/2023In the past 12 months, has lack of transportation kept you from meetings, work, or from getting things needed for daily living?No 07/09/2023Housing Stability Vital SignAnswerDate RecordedIn the last 12 months, was there a time when you were not able to pay the mortgage or rent on time?No 07/09/2023In the last 12 months, how many places have you lived?In the last 12 months, was there a time when you did not have a steady place to sleep or slept in [facility] (including now)?No07/09/2023CommentsNoSex and Gender InformationValueDate RecordedSex Assigned at KyqokHgglsr59/03/2023 11:04 AM EDTLegal DovAeqibw42/15/2023 6:42 PM EDTGender CgldcfojMmfwol06/03/2023 11:04 AM EDTSexual SlqdpybxgihHxogtlcn80/03/2023 11:04 AM EDTdocumented as of this encounter Last Filed Vital Signs Vital SignReadingTime TakenCommentsBlood Afbqbbap439/8211 9:15 AM EST Pulse--Temperature--Respiratory Rate--Oxygen Saturation--Inhaled Oxygen Concentration--Xcvvvq99.1 kg (148 lb)05/12/2025 9:15 AM ESTHeight--Body Mass Index27.0708 12:27 PM EDTdocumented in this encounter Progress Notes * Ivory Bazan LPN - 05/12/2025 9:00 AM EST Reason for Appointment: Patient ID: Ivonne Figueroa is a 69 y.o. female who presents for Gynecologic Exam Patient presents today for Annual Exam. MEDICATIONS Current Outpatient Medications Medication Instructions albuterol HFA 90 mcg/act inhaler Every 6 hours aspirin 81 mg, Daily RT biotin 1000 MCG tablet Daily RT calcium carbonate 600 mg, Daily RT coenzyme Q-10 100 MG capsule Every 24 hours estradiol (Estrace) 0.1 MG/GM vaginal cream APPLY 1 GRAM VAGINALLY TWICE A WEEK (SUNDAY & SUNDAY) hydrocortisone 2.5 % ointment APPLY TO AFFECTED AREAS AROUND EYES TWICE A DAY FOR UP TO 3 WEEKS THEN NEEDED FOR FLARES ibandronate (Boniva) 150 MG tablet TAKE 1 TABLET BY MOUTH ONCE A MONTH WITH PLAIN WATER 60 MINUTES BEFORE THE FIRST FOOD, BEVERAGE OR MEDICINE OF THE DAY. latanoprost (Xalatan) 0.005 % ophthalmic solution 1 drop, Nightly losartan (COZAAR) 50 mg, Oral, Daily metoprolol succinate XL (Toprol-XL) 50 MG 24 hr tablet TAKE 1 TABLET (50 MG) BY MOUTH EVERY DAY DO NOT CRUSH OR CHEW montelukast (SINGULAIR) 10 mg, Oral, Daily pantoprazole (ProtoNix) 40 MG EC tablet TAKE 1 TABLET BY MOUTH EVERY DAY FOR 90 DAYS PARoxetine (PAXIL) 20 mg, Oral, Daily rosuvastatin (CRESTOR) 10 mg, Oral, Daily tiZANidine (Zanaflex) 2 MG tablet TAKE 1 TO 2 TABLETS BY MOUTH NEEDED AT BEDTIME FOR MUSCLE SPASMS ALLERGIES Allergies Allergen Reactions Clarithromycin Unknown Glycerin Diarrhea PROBLEMS Active Ambulatory Problems Diagnosis Date Noted Age-related osteoporosis without current pathological fracture 01/10/2023 Anxiety 03/03/2020 Chronic cystitis 01/10/2023 Dupuytrens contracture 04/01/2018 Eosinophilic esophagitis 01/10/2023 Gastroesophageal reflux disease 03/03/2020 Hemorrhoids 01/10/2023 Hyperlipidemia 03/06/2017 Microscopic hematuria 01/10/2023 Mitral valve prolapse 01/10/2023 Stress incontinence 01/10/2023 Dukes's esophagus 03/03/2020 Essential hypertension 05/09/2023 Postmenopausal state 04/24/2024 Former smoker 05/12/2024 NAS (acute kidney injury) 11/20/2024 WILSON (dyspnea on exertion) 11/20/2024 Family history of heart disease 11/20/2024 Pain in joint involving ankle and foot 02/16/2025 Pain in right ankle and joints of right foot 02/16/2025 PVC (premature ventricular contraction) 11/20/2024 Essential (primary) hypertension 05/09/2023 Well woman exam with routine gynecological exam 05/12/2025 Resolved Ambulatory Problems Diagnosis Date Noted Arthritis of right hip 04/19/2022 Dukes's esophagus with dysplasia 03/03/2020 Dysphagia 01/10/2023 Frequency of urination 01/10/2023 Heartburn 01/10/2023 Hypertension, essential 08/12/2021 LUQ pain 01/10/2023 Nocturia 01/10/2023 Personal history of smoking 01/10/2023 Pure hypercholesterolemia 08/12/2021 Urethral stricture due to infection 01/10/2023 Vitamin D deficiency 10/07/2016 Balance disorder 01/10/2023 BPPV (benign paroxysmal positional vertigo), left 01/12/2023 Agatston coronary artery calcium score less than 100 05/10/2023 BMI 26.0-26.9,adult 05/09/2023 Palpitations 05/09/2023 Arthritis of hip 04/19/2022 Urge incontinence 07/10/2023 Bone cyst of left ankle 07/27/2023 Stomach pain 04/24/2024 Breast cancer screening by mammogram 04/24/2024 Pelvic pain in female 04/24/2024 Cervicalgia 07/31/2024 Past Medical History: Diagnosis Date Allergies Asthma (HCC) Dukes esophagus Breast lump Diverticulitis HTN (hypertension) Ocular migraine ARINA (obstructive sleep apnea) Rotator cuff tear arthropathy, unspecified laterality HISTORY PAST MEDICAL HISTORY SOCIAL HISTORY Past Medical History: Diagnosis Date Allergies Anxiety Arthritis of hip 04/19/2022 Asthma (HCC) Dukes esophagus BPPV (benign paroxysmal positional vertigo), left 01/12/2023 Breast cancer screening by mammogram 04/18/2022 neg Breast lump Diverticulitis HTN (hypertension) Hyperlipidemia Hypertension, essential 08/12/2021 Mitral valve prolapse Ocular migraine ARINA (obstructive sleep apnea) Mild, not tx [...] Right 01/31/2024 DEBORAH W/ LALO ; DR BULLOCK TONSILLECTOMY REVIEW OF SYSTEMS Review of Systems: Review of Systems Constitutional: Negative. HENT: Negative. Eyes: Negative. Respiratory: Negative. Cardiovascular: Negative. Gastrointestinal: Negative. Genitourinary: Negative. Musculoskeletal: Negative. Skin: Negative. Neurological: Negative. All other systems reviewed and are negative. Hematological: Negative. Endocrine: Negative. Allergic/Immunologic: Negative. OBJECTIVE Objective: Physical Exam Constitutional: Appearance: Normal appearance. She is well-developed. Genitourinary: Vulva normal. Right Adnexa: not tender and no mass present. Left Adnexa: not tender and no mass present. No cervical discharge. Bladder exam comments: Prolapsed, reduced. Breasts: Breasts are soft. Right: Normal. Left: Normal. HENT: Head: Normocephalic. Nose: Nose normal. Mouth/Throat: Mouth: Mucous membranes are moist. Cardiovascular: Rate and Rhythm: Normal rate and regular rhythm. Pulmonary: Effort: Pulmonary effort is normal. Breath sounds: Normal breath sounds. Abdominal: General: Bowel sounds are normal. There is no distension. Palpations: Abdomen is soft. Tenderness: There is no abdominal tenderness. There is no guarding or rebound. Musculoskeletal: General: No swelling. Normal range of motion. Cervical back: Normal range of motion. Right lower leg: No edema. Left lower leg: No edema. Neurological: General: No focal deficit present. Mental Status: She is alert and oriented to person, place, and time. Skin: General: Skin is warm and dry. Psychiatric: Mood and Affect: Mood normal. Behavior: Behavior normal. Vitals and nursing note reviewed. Exam conducted with a liquor tester present. Vitals: Estimated body mass index is 27.07 kg/m?? as calculated from the following: Height as of 25: 5' 2 . Weight as of this encounter: 148 lb. BP: 124/82 No LMP recorded (lmp unknown). Patient is postmenopausal. Assessment/Plan ICD-10-CM 1. Well woman exam with routine gynecological exam Z01.419 Bilateral screening mammogram DEXA bone density THIN PREP TIS PAP AND HR HPV DNA Bilateral screening mammogram 2. Breast cancer screening by mammogram Z12.31 Bilateral screening mammogram Bilateral screening mammogram 3. Postmenopausal state Z78.0 DEXA bone density 4. Chronic left hip pain M25.552 G89.29 Annual: Patient presents today for an annual exam. Patient states she is doing well and has no complaints. Pap was obtained without difficulty and patient given mammogram order as well as DEXA Scan order to have scheduled/obtained. Discussed breast tenderness--Aspercreme, primrose oil and possibly new bra. Orders Placed This Encounter Procedures Bilateral screening mammogram DEXA bone density Follow Up: Patient is to return in one year for annual unless needed otherwise. Documented by Ivory Bazan LPN on behalf of: Ekta Stover PA-C documented in this encounter Plan of Treatment DateTypeDepartmentCare Team (Latest Contact Info)Ozmgcjnonql58/12/2026 8:30 AM ESTProcedure Visit [facility] [address] [place] [phone] Tyler Ervin, [address] [place] [address] NameTypePriorityAssociated DiagnosesOrder ScheduleBilateral screening mammogram ImagingRoutine Well woman exam with routine gynecological exam Breast cancer screening by mammogram Expected: 05/12/2025, Expires: 07/12/2026DEXA bone densityImagingRoutine Well woman exam with routine gynecological exam Postmenopausal state Expected: 05/12/2025 (Approximate), Expires: 05/12/2026THIN PREP TIS PAP AND HR HPV DNAPathology and CytologyRoutine Well woman exam with routine gynecological exam Ordered: 05/12/2025documented as of this encounter Visit Diagnoses Diagnosis Well woman exam with routine gynecological exam Routine gynecological examination Breast cancer screening by mammogram Postmenopausal state Asymptomatic postmenopausal status (age-related) (natural) Chronic left hip pain documented in this encounter Care Teams Team MemberRelationshipSpecialtyStart DateEnd Date Arjun Izquierdo DO [address] [place] [address] PCP - GeneralFamily Medicine10/12/23 Arjun Izquierdo DO [address] [place] [address] PCP - [facility] [place]07/09/2511documented as of this encounter
--- OUTSIDE RECORDS SUMMARY | 2025-05-12 12:12 | XMS_ITS | Patient Health Record ---
Author Organization [facility] Address [address] [address] Care Team Providers Care Bulk Sealer Operator Name Role Phone Rio Rebolledo Unavailable [phone] Reason For Referral No Information Medications Medication SIG (Take, Route, Frequency, Duration) Notes Start Date End Date Status PARoxetine HCl 20 MG Tablet Oral; Duration: 90 D ays ActiveMedrol 4 MG Tablet Therapy Packas directed Orally daily; Duration: 6 days 5ActivePantoprazole Sodium 40 MG Tablet Delayed ReleaseOral; Duration: 90 DaysActiveMontelukast Sodium 10 MG Tablet1 tablet Orally Once a day; Duration: 30 day(s)5ActiveLosartan Potassium 50 MG TabletOral; Duration: 90 DaysActiveRosuvastatin Calcium 20 MG TabletOral; Duration: 90 Days ActiveMetoprolol Succinate ER 25 MG Tablet Extended Release 24 HourOral; Duration: 90 DaysActiveIbandronate Sodium 150 MG TabletTAKE 1 TABLET BY MOUTH ONCE MONTHLY WITH WATER 60 MINUTES BEFORE THE FIRST FOOD, BEVERAGE, OR MEDICINE OF THE DAY. Oral; Duration: 90 DaysActive Social History Section Notes: Patient is a former smoker. Social alcohol use. Encounters Encounter Location Date Provider Diagnosis [employer] [facility] [address] [address] 02/27/2025 Rio Rebolledo Arthritis of right foot M19.071 Assessments Encounter Date Diagnosis (ICD Code) Assessment Notes Treatment Notes Treatment Clinical Notes Section Notes 02/27/2025 Arthritis of right foot (ICD-10 - M19.071) Pain along first metatarsal, worse with walking and pressure. Swelling previously, mild improvementwith topical cream. X-ray shows mild arthritis. Patient motivated to remain active and avoid surgery. History of prednisone use with insomnia as side effect. - Prescribed Medrol Dosepak for preemptive use before hiking trip. - Recommended continued use of topical Voltaren cream. - Suggested trial of prescription-strength diclofenac cream from compounding pharmacy. - Advised on shoe modifications including wider shoes and alternative lacing. - Discussed orthotics but cautioned against spending on high arch support. Plan Of Treatment No Information Insurance Providers Payer Name Payer Address Payer Phone Subscriber Number Group Number Insured Name Patient Relationship to Insured Coverage Start Date Coverage End Date [employer] [address] [place], [place] [id number] [phone] [id number] Filipe Figueroa - patient is the insured Medical (General) History Medical History History ICD Code Arthritis GERDHigh Blood PressureHigh CholesterolSurgical History Surgery Date(Month/Year) Tonsillectomy
--- OUTSIDE RECORDS SUMMARY | 2025-05-12 12:12 | XMS_ITS | Clinical Summary ---
Author Organization [facility] Address [address] [place] [id number] Care Team Providers Care Swimming Coach Name Role Phone TimboArjun Primary Care Provid er Gasper Hamilton MD Unavailable [phone] Allergies Active AllergyReactionsCriticalityNoted DateCommentsClarithromycinIntolerance 09/29/20161835BoomTbaqleu21/04/2022 Medications MedicationSigDispense QuantityRefillsLast FilledStart DateEnd DateStatus pantoprazole DR (PROTONIX) 40 mg tablet Take 40 mg by mouth once daily.Active PARoxetine (PAXIL) 10 mg tablet Take 10 mg by mouth once daily. Active rosuvastatin (CRESTOR) 5 mg tablet Take 5 mg by mouth once daily.Active MULTIVITAMIN ORAL Take 1 tablet by mouth once daily. Active UBIDECARENONE (CO Q-10 ORAL) Take 200 mg by mouth once daily. Active aspirin, enteric coated (ASPIRIN, ENTERIC COATED) 81 mg EC tablet Take 81 mg by mouth once daily.Active estradiol (ESTRACE) 0.01 % (0.1 mg/gram) vaginal cream Use 1 g vaginally two times a week.03/28/2021ctive calcium carbonate/vitamin D3 (CALCIUM 600 + D,3, ORAL) Take 1 tablet by mouth once daily. Calcium 600 mg D3 800 IUActive polyethylene glycol 3350 (MIRALAX ORAL) Take by mouth once daily.Active Zinc 50 mg tab Take 50 mg by mouth once daily.Active Biotin 1 mg tab Take by mouth once daily.Active metoprolol succinate ER (TOPROL XL) 25 mg 24 hr tablet Indications:Heart palpitationsTake 1 tablet by mouth once daily. 90 tablet ctive Active Problems ProblemNoted DateDiagnosed DateHypertension, yaipgltyz94/04/2022ure cpybwkyquwxlvgwqnaux79/04/2022Vitamin D /01/2017 Family History Medical HistoryRelationCommentsHyperlipidemiaBrother 1HypertensionBrother 1 StrokeBrother 1miniBlood ClotsBrother 2HyperlipidemiaBrother 2Hypertension Brother 2StrokeBrother 2DVTHyperlipidemiaBrother 3HypertensionBrother 3Heart AttackFatherx 2HeartMotherCABGHeart AttackMotherx2 silentHyperlipidemiaMother HypertensionMotherHyperlipidemiaSisterHypertensionSisterRelationStatusComments Brother 1Brother 2Brother 3FatherDeceased (Age 67)heart attackMotherDeceased (Age 84)Sister Social History Tobacco UseTypesPacks/DayYears UsedDateSmoking Tobacco: FormerCigarettesQuit: 1990Smokeless Tobacco: NeverAlcohol UseStandard Drinks/WeekCommentsYes0 (1 standard drink = 0.6 oz pure alcohol)couple drinks weeklyCommentsUnknown Sex and Gender InformationValueDate RecordedSex Assigned at BirthNot on file Legal NkmPgjzdc67/15/2016 12:14 PM ESTGender OviivmhoQrzhha49/15/2022 2:13 PM EDTSexual XaqscadrhjkAmitibhs01/15/2022 2:13 PM EDT Last Filed Vital Signs Vital SignReadingTime TakenCommentsBlood Klzfuxri505/8208/12/2021 10:06 AM EST Bfwkz083808/12/2021 10:06 AM ESTTemperature--Respiratory Rate--Oxygen Saturation 95%08/12/2021 10:06 AM ESTInhaled Oxygen Concentration--Sgxjli20.1 kg (148 lb) 08/12/2021 10:06 AM USPNuiflm006.5 cm (5' 2 )08/12/2021 10:06 AM ESTBody Mass Index27.0708/12/2021 10:06 AM EST Plan of Treatment Health MaintenanceDue DateLast DoneCommentsAnxiety Tupjbdilp00/10/1975Depression Aozlwdnpl02/10/1975Hepatitis C Ohtxttclc57/10/1975DTaP,Tdap,Td Vaccine (1 - Tdap)1975Mammogram Mwtgjicsj64/10/1997CT Lurfjlihwppq58/10/2002Cologuard (FIT-DNA)08/18/20014334Gojxlnqunqv31/10/2002Colorectal Cancer Ctdhprkvc90/10/2002 Diabetes Xzrinxoga15/10/2002Fecal Occult Blood2001Lipid Screening 08/18/20011561Rrbxxdvkwuahe32/10/2002Pneumococcal Vaccine: 50+ (1 of 1 - PCV) 2006Bone Density Iozpwsorc37/10/2022hingrix Vaccine (2 of 2)12/05/2021 10/10/2021dvance Directive Vsyjcpvrbv56/01/2025Covid-19 Vaccine (2024- season), 10/07/2020, 10/01/2020, Additional history exists Influenza Vaccine (#1), 06/15/2021, 04/19/2020, Additional history existsRSV Vaccine (1 - 1-dose 75+ series)2031 Insurance Care Teams Team MemberRelationshipSpecialtyStart DateEnd Arjun Izquierdo DO [address] [facility] [address] [place] [address] PCP - GeneralFamily Srzheaki17/15/16 Gasper Hamilton MD [address] [place] [address] Primary Staff PhysicianCardiology08/12/21
--- OUTSIDE RECORDS SUMMARY | 2025-05-12 12:12 | XMS_ITS | Encounter Summary ---
Author Organization [facility] Address [address] [place] [address] Care Team Providers Care Stereotyper Apprentice Name Role Phone Arjun Izquierdo DO Unavailable [phone] Arjun Izquierdo DO Primary Care Provider + [phone] Arjun Izquierdo DO Unavailable [phone] Encounter Details DateTypeDepartmentCare Team (Latest Contact Info)Hrcmwuykmkp85/13/2024Clinisync Result Encounter [facility] External Department Unsolicited Janessa Ervin DO [address] [place] [address] Social History Tobacco UseTypesPacks/DayYears UsedDateSmoking Tobacco: FormerCigarettesQuit: [...] times a week07/09/2023How often do you attend lutheran or buddhism services?1 to 4 times per year07/09/2023o you belong to any clubs or organizations such as lutheran groups, unions, fraMomo or athletic groups, or school groups?No 07/09/2023ttends Club or Organization MeetingsNot on file07/09/2023re you , , , , never , or living with a partner? Pbtwlwt6007/09/2023UDIT-CAnswerDate RecordedQ1: How often do you have a [...] hard at all07/09/2023HQ-2AnswerDate RecordedPatient Health Questionnaire-2 Score0 02/16/2025[facility] [place] [facility] - Occupational Stress QuestionnaireAnswerDate [...] steady place to sleep or slept in ashelter (including now)?No07/09/2023CommentsNoSex and Gender InformationValueDate RecordedSex Assigned at CkfqpTtaknp60/03/2023 11:04 AM EDTLegal AwnOyeaxx65/15/2023 6:42 PM EDTGender OxakrtynKzbbej04/03/2023 11:04 AM EDTSexual DdigrkiznmlJraxtvex94/03/2023 11:04 AM EDTdocumented as of this encounter Functional Status * Over the past 2 weeks, how often have you been bothered by any of the following problems?QuestionAnswerDate of AssessmentAuthorLittle interest or pleasure in doing thingsNot at all02/16/2025 12:37 PM Norah Alex LPN Feeling down, depressed, or hopelessNot at all02/16/2025 12:37 PM Norah Alex LPNPatient Health Questionnaire-2 Pbguy435 12:37 PM Norah Alex LPN documented as of this encounter Plan of Treatment DateTypeDepartmentCare Team (Latest Contact Info)Fqcglzjkmvy80/12/2026 8:30 AM ESTProcedure Visit [facility] [place] [facility] [address] [place] [address] Janessa Ervin DO [address] [place] [address] documented as of this encounter Procedures Procedure NamePriorityDate/TimeAssociated DiagnosisCommentsXR DEXA AXIAL JEVPZBVJ14/13/2024 7:18 AM EST documented in this encounter Results * XR DEXA AXIAL SKELETON (05/21/2024 7:18 AM EST)Anatomical RegionLaterality ModalityOtherSpecimen (Source)Anatomical Location / LateralityCollection Method / VolumeCollection TimeReceived Time05/21/2024 7:18 AM EST Narrative 05/21/2024 7:20 AM EST [facility] ?[address] ? [place] [address] ?XRay Report ? Signed ? Patient: IVONNE ECHEVARRIA ?MR#: [id number] ?? : 1955 ?Acct:[id number] ?? Age/Sex: 68 / F ?ADM Date: 05/19/24 ?? Loc: MAMMO ? Attending Dr: Janessa Ervin D.O. ? Ordering Physician: Janessa Ervin D.O. ?? Date of Service: 05/19/24 ?? Procedure(s): XR DEXA axial skeleton ?? Accession Number(s): [id number] ? cc: Janessa Ervin D.O.; Physician,Non-Staff MPatricia. ? [facility] ? [address] [place] [address] ? [place] [address] ? Patient Name: ?? IVONNE ECHEVARRIA ? MRN: [id number] ? date: 1955 ?Sex: F ?? Assigned Patient Location: MAMMO ?? Current Patient Location: ? Accession/Order Number: [id number] ?? Exam Date: 05/19/2024 ??07:45 ?Report Date: 05/21/2024 ??07:18 ? At the request of: ?? JANESSA ??AZIZA ? Procedure: ??XR DEXA axial skeleton ? EXAMINATION: XR DEXA axial skeleton, 05/19/2024 7:45 AM EST ? HISTORY: Osteoporosis screening ? COMPARISON: 2021, 2019, 2012 ? TECHNIQUE: Dual-energy X-ray absorptiometry (DEXA) bone density study ?? performed ?? for the axial skeleton. ? FINDINGS: ? Bone mineral density AP spine L2-L4 measures 1.247 g/sq cm. T score 0.4. ?? Normal ? Lowest bone mineral density right femoral neck measures 0.757 g/sq cm. T score ? 2.0. Osteopenia ? XR/XR DEXA axial skeleton ?? IMPRESSION: ? Osteopenia. Moderate fracture risk ? Pharmacologic treatment recommendations ?? * No uniform recommendation applies to all patients. Management plans must be ?? individualized. ?? * Consider initiating pharmacologic treatment in postmenopausal women and men ?? >= 50 years of age who have the following: Primary fracture prevention: ?? * T-score <= - 2.5 at the femoral neck, total hip, lumbar spine, 33% radius (some uncertainty with existing data) by DXA. ?? * Low bone mass (osteopenia: T-score between - 1.0 and - 2.5) at the femoral ?? neck or total hip by DXA with a 10-year hip fracture risk >= 3% or a 10-year major osteoporosis-related fracture risk >= 20% (i.e., clinical vertebral, hip, ?? forearm, or proximal humerus) based on the US-adapted FRAXregistered model. ?? Secondary fracture prevention: ?? * Fracture of the hip or vertebra regardless of BMD [4, 5]. ?? * Fracture of proximal humerus, pelvis, or distal forearm in persons with low ?? bone mass (osteopenia: T-score between - 1.0 and - 2.5). The decision to treat ? should be individualized in persons with a fracture of the proximal humerus, ?? pelvis, or distal forearm who do not have osteopenia or low BMD [12, 13]. ?? Beatriz MS, Becky SL, Robby KL, Minerva EM, Teresa KG, NullMusa Gerardo ?? ES. ?? The clinician's guide to prevention and treatment of osteoporosis. Osteoporos ?? Int. 2021 Oct;33(10):6129-9384. doi: 10.1007/i64497-855-79218-w. Epub 2021 Apr ? 28. Erratum in: Osteoporos Int. 2021Feb 02;: PMID: 99656037; PMCID: ?? [id number]. ? Electronically authenticated by: GALINA ??FOUZIA ?? Date: 05/21/2024 ??07:18 ? Dictated By: ?Galina Fragoso M.D. ? Signed By: ?05/21/24 0720 ? DD/ 0718 ? TD/TT: ? Pressure Sealer And Tester: Procedure Note Radiology, Radiologist, - 05/21/2024 [place] [address] XRay Report Signed Patient: IVONNE ECHEVARRIA JMR#: [id number] : 1955cct:[id number] Age/Sex: 68 / FADM Date: 05/19/24 Loc: MAMMO Attending Dr: Janessa Ervin D.O. Ordering Physician: Janessa Ervin D.O. Date of Service: 05/19/24 Procedure(s): XR DEXA axial skeleton Accession Number(s): [id number] cc: Janessa Ervin D.O.; Physician,Non-Staff M.DRosalba The [place] [id number] Patient Name: IVONNE ECHEVARRIA MRN: [id number] date: 1955 Sex: F Assigned Patient Location: [facility] Current Patient Location: Accession/Order Number: [id number] Exam Date: 05/19/2024 07:45 Report Date: 05/21/2024 07:18 At the request of: JANESSA ERVIN Procedure: XR DEXA axial skeleton EXAMINATION: XR DEXA axial skeleton, 05/19/2024 7:45 AM EST HISTORY: Osteoporosis screening COMPARISON: 2021, 2019, 2012 TECHNIQUE: Dual-energy X-ray absorptiometry (DEXA) bone density study performed for the axial skeleton. FINDINGS: Bone mineral density AP spine L2-L4 measures 1.247 g/sq cm. T score 0.4. Normal Lowest bone mineral density right femoral neck measures 0.757 g/sq cm. Tscore 2.0. Osteopenia XR/XR DEXA axial skeleton IMPRESSION: Osteopenia. Moderate fracture risk Pharmacologic treatment recommendations * No uniform recommendation applies to all patients. Management plans mustbe individualized. * Consider initiating pharmacologic treatment in postmenopausal women andmen >= 50 years of age who have the following: Primary fracture prevention: * T-score <= - 2.5 at the femoral neck, total hip, lumbar spine, 33%radius (some uncertainty with existing data) by DXA. * Low bone mass (osteopenia: T-score between - 1.0 and - 2.5) at thefemoral neck or total hip by DXA with a 10-year hip fracture risk >= 3% or n00-vdij major osteoporosis-related fracture risk >= 20% (i.e., clinical vertebral, hip, forearm, or proximal humerus) based on the US-adapted FRAXregisteredmodel. Secondary fracture prevention: * Fracture of the hip or vertebra regardless of BMD [4, 5]. * Fracture of proximal humerus, pelvis, or distal forearm in persons withlow bone mass (osteopenia: T-score between - 1.0 and - 2.5). The decision totreat should be individualized in persons with a fracture of the proximalhumerus, pelvis, or distal forearm who do not have osteopenia or low BMD [12, 13]. Beatriz MS, Becky SL, Robby KL, Minerva EM, Teresa KG, AJ,Musa ES. The clinician's guide to prevention and treatment of osteoporosis.Osteoporos Int. 2021;33(10):5348-1557. doi: 10.1007/a11925-703-79597-y. Epub . Erratum in: Osteoporos Int. 2021Feb 02;: PMID: 83451347; PMCID: [id number]. Electronically authenticated by: GALINA FRAGOSO Date: 05/21/2024 07:18 Dictated By: Galina Fragoso M.D. Signed By:05/21/24719 DD/ 7 TD/TT: Pressure Sealer And Tester: Authorizing ProviderResult TypeResult StatusCorey Aziza DOCLINISYNC IMAGINGFinal Result documented in this encounter Visit Diagnoses Not on filedocumented in this encounter Care Teams Team MemberRelationshipSpecialtyStart DateEnd Date Arjun Izquierdo DO [address] [facility] [address] [place] [address] PCP - Devoted07/09/2311 Arjun Izquierdo DO [address] [facility] [address] [place] [address] [facility] - [facility]23 Arjun Izquierdo DO [address] [place] [address] [place] [address] PCP - Medical [place]07/09/2511documented as of this encounter
--- OUTSIDE RECORDS SUMMARY | 2025-05-12 12:12 | XMS_ITS | Encounter Summary ---
Author Organization [facility] Address [address] [place] [place] [address] Care Team Providers Care Cartography Professor Name Role Phone Arjun Izquierdo DO Primary Care Provider [phone] Arjun Izquierdo DO Unavailable [phone] Encounter Details DateTypeDepartmentCare Team (Latest Contact Info)Nbmhrqxatqp11/04/2025Bamboo flowsheet THAD Rodrigues O[facility] [address] [place], [id number] Tyler Ervin DO [address] [place]lan [place], [place] [address] Social History Tobacco UseTypesPacks/DayYears UsedDateSmoking Tobacco: FormerCigarettesQuit: [...] times a week07/09/2023How often do you attend sikhism or jehovah's witness services?1 to 4 times per year07/09/2023o you belong to any clubs or organizations such as sikhism groups, unions, fraWoowUp or athletic groups, or school groups?No 07/09/2023ttends Club or Organization MeetingsNot on file07/09/2023re you , , , , never , or living with a partner? Sesmvkk9907/09/2023UDIT-CAnswerDate RecordedQ1: How often do you have a [...] hard at all07/09/2023HQ-2AnswerDate RecordedPatient Health Questionnaire-2 Score0 02/16/2025[facility] [place] [facility] Occupational Health - Occupational Stress QuestionnaireAnswerDate [...] now)?No07/09/2023CommentsNoSex and Gender InformationValueDate RecordedSex Assigned at KnnkvFlbjre88/03/2023 11:04 AM EDTLegal XdvTvkgbj67/15/2023 6:42 PM EDTGender PqyegcjvLwtbyt98/03/2023 11:04 AM EDTSexual TthojlwwmgvYxvqceuc21/03/2023 11:04 AM EDTdocumented as of this encounter Plan of Treatment DateTypeDepartmentCare Team (Latest Contact Info)Asrogkhyleu90/12/2026 8:30 AM ESTProcedure Visit [facility] [place] [facility] [address] [place] [address] Tyler Ervin DO [address] [facility] [address] [place] [address] documented as of this encounter Visit Diagnoses Not on filedocumented in this encounter Care Teams Team MemberRelationshipSpecialtyStart DateEnd Date Arjun Izquierdo DO [address] [place] [address] PCP - GeneralFamily Medicine10/12/23 Arjun Izquierdo DO [address] [facility] [address] [place] [address] PCP - Medical [place]07/09/2511documented as of this encounter
--- OUTSIDE RECORDS SUMMARY | 2025-05-12 12:12 | XMS_ITS | Encounter Summary ---
Author Organization [facility] Address [address] [place] [address] Care Team Providers Care Microsoft Access Developer Name Role Phone Arjun Izquierdo DO Unavailable [phone] Arjun Izquierdo DO Primary Care Provider + [phone] Arjun Izquierdo DO Unavailable [phone] Encounter Details DateTypeDepartmentCare Team (Latest Contact Info)Yaxvpmtdqor60/01/2024Clinisync Result Encounter [facility] External Department Unsolicited Janessa Ervin DO [address] [facility] [address] [place] [id number] Social History Tobacco UseTypesPacks/DayYears UsedDateSmoking Tobacco: FormerCigarettesQuit: [...] times a week07/09/2023How often do you attend temple or taoist services?1 to 4 times per year07/09/2023o you belong to any clubs or organizations such as temple groups, unions, fraSouth49 Solutions or athletic groups, or school groups?No 07/09/2023ttends Club or Organization MeetingsNot on file07/09/2023re you , , , , never , or living with a partner? Rseruga5807/09/2023UDIT-CAnswerDate RecordedQ1: How often do you have a [...] hard at all07/09/2023HQ-2AnswerDate RecordedPatient Health Questionnaire-2 Score0 02/16/2025[facility] [place] [facility] - Occupational Stress QuestionnaireAnswerDate [...] now)?No07/09/2023CommentsNoSex and Gender InformationValueDate RecordedSex Assigned at PtlzpCntznx46/03/2023 11:04 AM EDTLegal ZaaXpxfyd88/15/2023 6:42 PM EDTGender NbuxsporXjhgyk40/03/2023 11:04 AM EDTSexual YabtvwwvjtgElohomak41/03/2023 11:04 AM EDTdocumented as of this encounter Functional Status * Over the past 2 weeks, how often have you been bothered by any of the following problems?QuestionAnswerDate of AssessmentAuthorLittle interest or pleasure in doing thingsNot at all02/16/2025 12:37 PM Norah Alex LPN Feeling down, depressed, or hopelessNot at all02/16/2025 12:37 PM Norah Alex LPNPatient Health Questionnaire-2 Kmsgd977 12:37 PM Norah Alex LPN documented as of this encounter Plan of Treatment DateTypeDepartmentCare Team (Latest Contact Info)Bcfkfixictm03/12/2026 8:30 AM ESTProcedure Visit [facility] [place] [facility] [address] [place] [address] Janessa Ervin DO [address] [facility] [place] [address] documented as of this encounter Procedures Procedure NamePriorityDate/TimeAssociated DiagnosisCommentsUS PELVIS W/ SXUPYMPMJNMD32/01/2024 1:24 PM EDT documented in this encounter Results * US PELVIS W/ TRANSVAGINAL (05/09/2024 1:24 PM EDT)Anatomical RegionLaterality ModalityOtherSpecimen (Source)Anatomical Location / LateralityCollection Method / VolumeCollection TimeReceived Time05/09/2024 1:24 PM EDT Narrative 05/09/2024 1:26 PM EDT [facility] ?[address] ? [place] [address] ? Ultrasound Report ? Signed ? Patient: DENNIS ECHEVARRIA ?MR#: [id number] ?? : 1955 ?Acct:[id number] ?? Age/Sex: 68 / F ?ADM Date: 05/08/24 ?? Loc: [facility] ? Attending Dr: Janessa Ervin D.O. ? Ordering Physician: Janessa Ervin D.O. ?? Date of Service: 05/08/24 ?? Procedure(s): US pelvis w/ transvaginal ?? Accession Number(s): [id number] ? cc: Janessa Ervin D.O.; Physician,Non-Staff M.D. ? [facility] ? [address] ? [place] [address] ? Patient Name: ?? DENNIS ECHEVARRIA ? MRN: [id number] ? date: 1955 ?Sex: F ?? Assigned Patient Location: [facility]S ?? Current Patient Location: ? Accession/Order Number: [id number] ?? Exam Date: 05/08/2024 ??11:06 ?Report Date: 05/09/2024 ??13:24 ? At the request of: ?? JANESSA ??AZIZA ? Procedure: ??US pelvis w/ transvaginal ? EXAMINATION: US pelvis w/ transvaginal ? HISTORY: PELVIC PAIN ? COMPARISON: No relevant comparison available. ? FINDINGS: ? Transabdominal and transvaginal images ? The liver is normal in size, contour and echotexture measuring 5.8 x 2.3 x 4.2 ? cm. Mildly heterogeneous echotexture with no focal mass. The uterus is ?? anteverted, anteflexed ? The endometrium measures 3 mm, normal ? The ovaries are not visualized ? No free fluid ? US/US pelvis w/ transvaginal ?? IMPRESSION: ? No acute abnormality ? Electronically authenticated by: GALINA ??FOUZIA ?? Date: 05/09/2024 ??13:24 ? Dictated By: ?Galina Fragoso M.D. ? Signed By: ?24 1326 ? DD/ 1324 ? TD/TT: ? Fruit Packer Face And Fill: Procedure Note Radiology, Radiologist, MD - 05/09/2024 [place] [address] Ultrasound Report Signed Patient: DENNIS ECHEVARRIA JMR#: [id number] : 1955cct:[id number] Age/Sex: 68 / FADM Date: 05/08/24 Loc: [facility] Attending Dr: Janessa Ervin D.O. Ordering Physician: Janessa Ervin D.O. Date of Service: 05/08/24 Procedure(s): US pelvis w/ transvaginal Accession Number(s): [id number] cc: Janessa Ervin D.O.; Physician,Non-Staff M.[place] The [place] [id number] Patient Name: DENNIS ECHEVARRIA MRN: [id number] date: 1955 Sex: F Assigned Patient Location: [facility] Current Patient Location: Accession/Order Number: [id number] Exam Date: 05/08/2024 11:06 Report Date: 05/09/2024 13:24 At the request of: JANESSA ERVIN Procedure: US pelvis w/ transvaginal EXAMINATION: US pelvis w/ transvaginal HISTORY: PELVIC PAIN COMPARISON: No relevant comparison available. FINDINGS: Transabdominal and transvaginal images The liver is normal in size, contour and echotexture measuring 5.8 x 2.3 x4.2 cm. Mildly heterogeneous echotexture with no focal mass. The uterus is anteverted, anteflexed The endometrium measures 3 mm, normal The ovaries are not visualized No free fluid US/US pelvis w/ transvaginal IMPRESSION: No acute abnormality Electronically authenticated by: GALINA FRAGOSO Date: 05/09/2024 13:24 Dictated By: Galina Fragoso M.D. Signed By:05/09/24 1326 DD/ 1324 TD/TT: Fruit Packer Face And Fill: Authorizing ProviderResult TypeResult StatusCorey Aziza DOCLINISYNC IMAGINGFinal Result documented in this encounter Visit Diagnoses Not on filedocumented in this encounter Care Teams Team MemberRelationshipSpecialtyStart DateEnd Date Arjun Izquierdo DO [address] [facility] [address] [place] [address] PCP - [facility]07/09/2311 Arjun Izquierdo DO [address] [place] [address] PCP - GeneralFami Medicine10/12/23 Arjun Izquierdo DO [address] [place] [address] PCP - Medical [facility]07/09/2511documented as of this encounter
--- OUTSIDE RECORDS SUMMARY | 2025-05-12 12:12 | XMS_ITS | Patient Health Record ---
Author Organization [facility] [place] Address [address] [place] [address] Care Team Providers Care Student Services Representative Name Role Phone None, Unknown or Primary Care Provider Unavailab le Allergies No Known Allergies Reason For Referral No Information Medications Medication SIG (Take, Route, Frequency, Duration) Notes Start Date End Date Status Metoprolol Succinate 25 MG 1 capsule Orally Once a day ActivePARoxetine HCl 20 MG1 tablet in the morning Orally Once a dayActive Rosuvastatin Calcium 40 MG1 tablet Orally Once a dayActiveIbandronate Sodium 150 MG1 tablet 60 minutes before the first food, beverage or medicine of the day with plain water OrallyActivePantoprazole Sodium 40 MG1 tablet Orally Once a day Active Social History Tobacco Use: Social History Observation Description Date Details (start date - stop date) Former Smoker NA - NA Tobacco Use/Smoking Question Answer Notes Patient is a former smoker How long has it been since you last smoked?> 10 years Problems Problem Type SNOMED Code ICD Code Onset Dates Problem Status W/U Status Risk Notes Problem Arthralgia of the an kle and/or foot (980507420) Pain in right ankle and joints of right foot (M25.571) ActiveconfirmedProblemArthralgia of the ankle and/or foot (269391498)Pain in left ankle and joints of left foot (M25.572)Activeconfirmed Plan Of Treatment No Information Insurance Providers Payer Name Payer Address Payer Phone Subscriber Number Group Number Insured Name Patient Relationship to Insured Coverage Start Date Coverage End Date [employer] [address] [place] [id number] Ivonne FigueroaSelf - patient is the insured Medical (General) History Medical History History ICD Code High blood cholesterol E78.00 High blood pressure I10 Surgical History Surgery Date(Month/Year) tonsils
--- OUTSIDE RECORDS SUMMARY | 2025-05-12 12:12 | XMS_ITS | Encounter Summary ---
Author Organization [facility] Address [address] [place] [address] Care Team Providers Care Store Consultant Name Role Phone Arjun Izquierdo DO Unavailable [phone] Arjun Izquierdo DO Primary Care Provider + [phone] Arjun Izquierdo DO Unavailable [phone] Encounter Details DateTypeDepartmentCare Team (Latest Contact Info)Kqitrdpfugg01/11/2024Clinisync Result Encounter [facility] Unsolicited Tyler Erivn DO [address] [place] [address] Social History Tobacco UseTypesPacks/DayYears UsedDateSmoking Tobacco: FormerCigarettesQuit: [...] times a week07/09/2023How often do you attend religious or pentecostal services?1 to 4 times per year07/09/2023o you belong to any clubs or organizations such as religious groups, unions, fraITN or athletic groups, or school groups?No 07/09/2023ttends Club or Organization MeetingsNot on file07/09/2023re you , , , , never , or living with a partner? Hfffagv6507/09/2023UDIT-CAnswerDate RecordedQ1: How often do you have a [...] hard at all07/09/2023HQ-2AnswerDate RecordedPatient Health Questionnaire-2 Score0 02/16/2025[facility] [place] [facility] - Occupational [...] now)?No07/09/2023CommentsNoSex and Gender InformationValueDate RecordedSex Assigned at SsdkkDtsjqk20/03/2023 11:04 AM EDTLegal CzjMwoeke96/15/2023 6:42 PM EDTGender QqbsalctKxepur95/03/2023 11:04 AM EDTSexual UtpvleelftmXhcsakpp67/03/2023 11:04 AM EDTdocumented as of this encounter Functional Status * Over the past 2 weeks, how often have you been bothered by any of the following problems?QuestionAnswerDate of AssessmentAuthorLittle interest or pleasure in doing thingsNot at all02/16/2025 12:37 PM Norah Alex LPN Feeling down, depressed, or hopelessNot at all02/16/2025 12:37 PM Norah Alex LPNPatient Health Questionnaire-2 Wglzn105 12:37 PM Norah Alex LPN documented as of this encounter Plan of Treatment DateTypeDepartmentCare Team (Latest Contact Info)Pppmwjmelep52/12/2026 8:30 AM ESTProcedure Visit [facility] [place] [facility] [address] [place] [address] Tyler Ervin DO [address] [place] [address] documented as of this encounter Procedures Procedure NamePriorityDate/TimeAssociated DiagnosisCommentsMM TOMOSYNTHESIS SCREENING BI05/19/2024 9:04 AM EST documented in this encounter Results * MM TOMOSYNTHESIS SCREENING (05/19/2024 9:04 AM EST)Anatomical Region LateralityModalityOtherSpecimen (Source)Anatomical Location / Laterality Collection Method / VolumeCollection TimeReceived Time05/19/2024 9:04 AM EST Narrative 05/19/2024 9:05 AM EST [facility] ?[address] ? [place] [address] ? Mammography Report ? Signed ? Patient: DENNIS ECHEVARRIA ?MR#: [id number] ?? : 1955 ?Acct:[id number] ?? Age/Sex: 68 / F ?ADM Date: 05/19/24 ?? Loc: MAMMO ? Attending Dr: Tyler Ervin D.O. ? Ordering Physician: Tyler Ervin D.O. ?Results: ? Date of Service: 05/19/24 ?Follow Up: ? Procedure(s): MM tomosynthesis screening BI ?? Accession Number(s): [id number] ? cc: Aziza,Tyler D.O.; Physician,Non-Staff M.D. ? Patient Name: ? DENNIS ECHEVARRIA ? MR#: [id number] ? : 1955 ? Exam Date: 05/19/2024 ?? Ordering Doctor: DR Tyler Ervin . ? RADIOLOGY REPORT ? PROCEDURE: ? MM TOMOSYNTHESIS SCREENING BI ? COMPARISON: ? MG MAMM SCREEN 3D LUAN CAD, 04/18/2022. ??MM TOMOSYNTHESIS ?? SCREENING BI, 04/20/2023. ? INDICATIONS: ? Screening mammography ? Calculator Name ? NCI Breast Cancer Risk Assessment Tool ?? 5 Year Breast Cancer Risk ? 2.50% ?? Lifetime Breast Cancer Risk ? 8.50% ?? Personal Breast Cancer ?No ?? Personal Ovarian Cancer ? No ?? Treatments ? None ?? Family Cancers ? Aunt-paternal with breast cancer at age ??60; Brother with ?? rectal cancer at age 70. ? LOCATION: ? [facility] ? BREAST COMPOSITION: ? The breasts are extremely dense, which lowers the ?? sensitivity of mammography. ? FINDINGS: ? DIAGNOSTIC CATEGORY 2--BENIGN FINDING. NO CHANGE FROM COMPARISON. ? RIGHT BREAST: ??No significant suspicious finding. ? LEFT BREAST: ??No significant suspicious finding. ? RECOMMENDATIONS: ? ROUTINE MAMMOGRAM AND CLINICAL EVALUATION IN 12 MONTHS. ? PLEASE NOTE: ??A NORMAL MAMMOGRAM DOES NOT EXCLUDE THE POSSIBILITY OF BREAST ?? CANCER. ??A CLINICALLY SUSPICIOUS PALPABLE LUMP SHOULD BE BIOPSIED. ? Dictated by: Tanmay Becerril MD on 05/19/2024 at 09:03 ? Approved by: Tanmay Becerril MD on 05/19/2024 at 09:04 ? Dictated By: ?Tanmay Becerril M.D. ? Signed By: ?05/19/24 0905 ? DD/ 0904 ? TD/TT: ? Bank Representative: Procedure Note Radiology, Radiologist, MD - 05/19/2024 [place] [address] Mammography Report Signed Patient: DENNIS ECHEVARRIA ANTHONYR#: [id number] : 7Acct:[id number] Age/Sex: 68 / FADM Date: 05/19/24 Loc: MAMMO Attending Dr: Tyler Ervin D.O. Ordering Physician: Tyler Ervin D.O.Results: Date of Service: 05/19/24Follow Up: Procedure(s): MM tomosynthesis screening BI Accession Number(s): [id number] cc: Tyler Ervin D.O.; Physician,Non-Staff Asa Patient Name: DENNIS ECHEVARRIA MR#: [id number] : 1955 Exam Date: 05/19/2024 Ordering Doctor: DR Tyler Ervin . RADIOLOGY REPORT PROCEDURE: MM TOMOSYNTHESIS SCREENING BI COMPARISON: MG MAMM SCREEN 3D LUAN CAD, 04/18/2022. MM TOMOSYNTHESIS SCREENING BI, 04/20/2023. INDICATIONS: Screening mammography Calculator Name NCI Breast Cancer Risk Assessment Tool 5 Year Breast Cancer Risk 2.50% Lifetime Breast Cancer Risk 8.50% Personal Breast Cancer No Personal Ovarian Cancer No Treatments None Family Cancers Aunt-paternal with breast cancer at age 60; Brotherwith rectal cancer at age 70. LOCATION: [facility] BREAST COMPOSITION: The breasts are extremely dense, which lowers the sensitivity of mammography. FINDINGS: DIAGNOSTIC CATEGORY 2--BENIGN FINDING. NO CHANGE FROM COMPARISON. RIGHT BREAST: No significant suspicious finding. LEFT BREAST: No significant suspicious finding. RECOMMENDATIONS: ROUTINE MAMMOGRAM AND CLINICAL EVALUATION IN 12 MONTHS. PLEASE NOTE: A NORMAL MAMMOGRAM DOES NOT EXCLUDE THE POSSIBILITY OFBREAST CANCER. A CLINICALLY SUSPICIOUS PALPABLE LUMP SHOULD BE BIOPSIED. Dictated by: Tanmay Becerril MD on 05/19/2024 at 09:03 Approved by: Tanmay Becerril MD on 05/19/2024 at 09:04 Dictated By: Tanmay Becerril M.D. Signed By:05/19/24904 DD/ 3 TD/TT: Bank Representative: Authorizing ProviderResult TypeResult StatusCorey Aziza DOCLINISYNC IMAGINGFinal Result documented in this encounter Visit Diagnoses Not on filedocumented in this encounter Care Teams Team MemberRelationshipSpecialtyStart DateEnd Date Arjun Izquierdo DO [address] [place] [address] PCP - Devoted07/09/2311 Arjun Izquierdo DO [address] [facility] [address] [place] [address] PCP - GeneralFamily Medicine10/12/23 Arjun Izquierdo DO [address] [facility] [address] [place] [address] PCP - Medical Burke MA07/09/2511documented as of this encounter
--- OUTSIDE RECORDS SUMMARY | 2025-05-12 12:12 | XMS_ITS | Clinical Summary ---
Author Organization [facility] Address [address] [place] [address] Phone Care Team Providers Care Spa Manager Name Role Phone TimboArjun Primary Care Provider [phone] Allergies Active AllergyReactionsCriticalityNoted DateCommentsClarithromycinUnknown 05/09/2023 Medications MedicationSigDispense QuantityRefillsLast FilledStart DateEnd DateStatus multivit-min/ferrous fumarate (MULTI VITAMIN ORAL) Take 1 tablet by mouth once daily.Active calcium carbonate 600 mg calcium (1,500 mg) tablet Take 1 tablet (1,500 mg) by mouth once daily.Active estradiol (Estrace) 0.01 % (0.1 mg/gram) vaginal cream Insert 0.25 Applicatorfuls (1 g) into the vagina 2 times a week.Active pantoprazole (ProtoNix) 40 mg EC tablet Take 1 tablet (40 mg) by mouth once daily.Active PARoxetine (Paxil) 20 mg tablet Take 1 tablet (20 mg) by mouth once daily.Active coenzyme Q-10 200 mg capsule Take 1 capsule (200 mg) by mouth once daily.Active ibandronate (Boniva) 150 mg tablet 1 tablet (150 mg) every 30 (thirty) days.02/14/2024ctive montelukast (Singulair) 10 mg tablet Take 1 tablet (10 mg) by mouth once daily at bedtime.Active losartan (Cozaar) 50 mg tablet Take 1 tablet (50 mg) by mouth once daily.ctive magnesium oxide (Mag-Ox) 400 mg (241.3 mg elemental) tablet Indications:PalpitationsTake 1 tablet by mouth 2 times a day. 180 tablet /ctive metoprolol succinate XL (Toprol-XL) 50 mg 24 hr tablet Indications:PVC (premature ventricular contraction),Essential (primary) hypertensionTake 1 tablet (50 mg) by mouth once daily. Do not crush or chew. 90 tablet ctive rosuvastatin (Crestor) 20 mg tablet Indications:Mixed hyperlipidemiaTAKE 1 TABLET BY MOUTH EVERY DAY 90 tablet 5Active Active Problems ProblemNoted DateDiagnosed DateAKI (acute kidney injury)11/20/2024DOE (dyspnea on exertion)11/20/2024PVC (premature ventricular contraction)11/20/2024Family history of heart vgrgctk1411/20/2024Former whnidm9505/12/2024[facility] coronary artery calcium score less than 9213805/10/2023Essential (primary) hypertension 05/09/20232108Vhvooxseyfnjtu97/01/6948Dolinitivyym99/01/2023MI 26.0-26.9,adult 05/09/2023 Resolved Problems ProblemNoted DateDiagnosed DateResolved DateBMI 27.0-27.9,adult05/09/2023 05/10/2023 Encounters DateTypeDepartmentCare PffuMkqkirigrwq43/27/[address]25[address] [address] Lacey Damico MD Mixed hyperlipidemiafrom Last 3 Months Immunizations ImmunizationAdministration DatesNext DueFlu vaccine, quadrivalent, no egg protein, age 6 month or greater (FLUCELVAX)06/20/2022,06/15/2021,06/17/2018Flu vaccine, trivalent, preservative free, no egg protein, age 6 months or greater (Flucelvax)04/19/2020Influenza, injectable, MDCK, kyhgmjfcxati50/13/2019 Pneumococcal conjugate vaccine, 20-valent (PREVNAR 20)11/08/2021Tetanus toxoid, maoowhto15/27/2007Zoster vaccine, recombinant, adult (SHINGRIX)04/04/2022, 10/10/2021 Family History Medical HistoryRelationNameCommentsHeart diseaseBrotherARTERIOSCLEROTIC CARDIOVASCULAR DISEASEHeart diseaseFatherARTERIOSCLEROTIC CARDIOVASCULAR DISEASE Heart diseaseMotherARTERIOSCLEROTIC CARDIOVASCULAR DISEASERelationNameStatus CommentsBrotherFatherMother Social History Tobacco UseTypesPacks/DayYears UsedDateSmoking Tobacco: NeverSmokeless Tobacco: Never Tobacco Cessation:Counseling Given: Not Answered Alcohol UseStandard Drinks/WeekCommentsYes0 (1 standard drink = 0.6 oz pure alcohol)occasional wine/ mixed drinkCommentsUnknownSex and Gender InformationValueDate RecordedSex Assigned at BirthNot on fileLegal SexFemale 06/02/2022 11:21 PM ESTGender IdentityNot on fileSexual OrientationNot on file Last Filed Vital Signs Vital SignReadingTime TakenCommentsBlood Qpoqwjxs977/72011/20/2024 1:26 PM EDT [place]638911/20/2024 1:26 PM EDTTemperature--Respiratory Rate--Oxygen Saturation-- Inhaled Oxygen Concentration--Kioekh10.3 kg (144 lb)11/20/2024 1:26 PM EDTHeight 157.5 cm (5' 2 )11/20/2024 1:26 PM EDTBody Mass Index26.34011/20/2024 1:26 PM EDT Plan of Treatment DateTypeDepartmentCare Team (Latest Contact Info)Duoxautqafp90/01/2025 9:45 AM ESTOffice [facility] [address] [facility] [address] [place] [address] Lacey Damico MD [address] [facility] [address] [place], [place] [id number] Health MaintenanceDue DateLast DoneCommentsCT Fdexsduobfkt47/10/1957FIT-DNA (Cologuard)1955FIT1955Medicare Annual Wellness Visit (AWV)1955 Lgjfjducgwmky00/10/1957MMR Vaccines (1 of 1 - Standard series)1957Diabetes Rpbrglqyf70/10/1975Hepatitis C Veqasctrp92/10/1975DTaP/Tdap/Td Vaccines (1 - Tdap)1978RSV High Risk: (Elderly (60+) or Population) (1 - Risk 50-74 years 1-dose series)08/18/20068166Ycedqtmyw40, 03/29/2021, 03/19/2020Bone Density Scan41, 03/19/2020Influenza Vaccine (#1)/, 06/15/2021, 04/19/2020, Additional history exists COVID-19 Vaccine ( season)1352Zfhsicfqyns70 Colorectal Cancer Zhuqxbawd52/15/2029Lipid Panel4Pneumococcal HnczowiFqsiggooi90/03/2022Zoster KibcqudjDwpnujxww51/27/2022, 10/10/2021 Diabetes: Urine Protein NppturxcuHdfhvedyxydn74/28/2025, 04/08/2024HIB Vaccines Aged OutNo longer eligible based on patient's age to complete this topicHPV VaccinesAged OutNo longer eligible based on patient's age to complete this topic Hepatitis A VaccinesAged OutNo longer eligible based on patient's age to complete this topicHepatitis B VaccinesAged OutNo longer eligible based on patient's age to complete this topicIPV VaccinesAged OutNo longer eligible based on patient's age to complete this topicMeningococcal VaccineAged OutNo longer eligible based on patient's age to complete this topicRotavirus VaccinesAged Out No longer eligible based on patient's age to complete this topic Insurance Care Teams Team MemberRelationshipSpecialtyStart DateEnd Date Arjun Izquierdo DO [address] [place] [address] PCP - GeneralFamily Medicine12/12/24
--- OUTSIDE RECORDS SUMMARY | 2025-05-12 12:12 | XMS_ITS | Clinical Summary ---
Author Organization [facility] Healthcare Address [address] [place] [address] Care Team Providers Care Child Attendant Name Role Phone Arjun Izquierdo DO Primary Care Provider [phone] Arjun Izquierdo DO Unavailable [phone] Allergies Active AllergyReactionsCriticalityNoted DateCommentsClarithromycinUnknown 09/29/20165515JkntwikrOdootalc29/05/2023 Medications MedicationSigDispense QuantityRefillsLast FilledStart DateEnd DateStatus albuterol HFA 90 mcg/act inhaler every 6 (six) hours.06/08/2022ctive aspirin 81 MG EC tablet Take 81 mg by mouth in the morning.Active biotin 1000 MCG tablet Take by mouth Daily.Active coenzyme Q-10 100 MG capsule 1 (one) time each day at the same time.Active estradiol (Estrace) 0.1 MG/GM vaginal cream APPLY 1 GRAM VAGINALLY TWICE A WEEK (SUNDAY & SUNDAY)12/30/2022ctive latanoprost (Xalatan) 0.005 % ophthalmic solution Administer 1 drop into both eyes at bedtime.11/14/2022ctive pantoprazole (ProtoNix) 40 MG EC tablet TAKE 1 TABLET BY MOUTH EVERY DAY FOR 90 DAYSActive rosuvastatin (Crestor) 10 MG tablet Indications:Hyperlipidemia, unspecified hyperlipidemia typeTake 1 tablet (10 mg) by mouth in the morning. 90 tablet ctive Additional Information Patient taking differently: 20 mgOral Daily, Reported on 02/16/2025 montelukast (Singulair) 10 MG tablet Indications:WheezingTAKE 1 TABLET BY MOUTH EVERY DAY 90 tablet ctive calcium carbonate 1500 (600 Ca) MG tablet Take 600 mg by mouth in the morning.Active ibandronate (Boniva) 150 MG tablet Indications:Age-related osteoporosis without current pathological fractureTAKE 1 TABLET BY MOUTH ONCE A MONTH WITH PLAIN WATER 60 MINUTES BEFORE THE FIRST FOOD, BEVERAGE OR MEDICINE OF THE DAY. 12 tablet 02/14/2024ctive hydrocortisone 2.5 % ointment APPLY TO AFFECTED AREAS AROUND EYES TWICE A DAY FOR UP TO 3 WEEKS THEN NEEDED FOR WVUFIT335Active PARoxetine (Paxil) 20 MG tablet Indications:AnxietyTAKE 1 TABLET BY MOUTH DAILY 90 tablet 5Active tiZANidine (Zanaflex) 2 MG tablet Indications:Greater trochanteric bursitis, leftTAKE 1 TO 2 TABLETS BY MOUTH NEEDED AT BEDTIME FOR MUSCLE SPASMS 180 tablet 5Active metoprolol succinate XL (Toprol-XL) 50 MG 24 hr tablet TAKE 1 TABLET (50 MG) BY MOUTH EVERY DAY DO NOT CRUSH OR CHEW02/05/2025tive losartan (Cozaar) 50 MG tablet Indications:Essential hypertensionTAKE 1 TABLET BY MOUTH EVERY DAY 90 tablet 5Active Active Problems ProblemNoted DateDiagnosed DateWell woman exam with routine gynecological exam 05/12/2025Pain in joint involving ankle and foot02/16/2025Pain in right ankle and joints of right foot02/16/2025KI (acute kidney injury)11/20/2024DOE (dyspnea on exertion)11/20/2024Family history of heart banwlax3711/20/2024PVC (premature ventricular contraction)11/20/2024Former xghbek8305/12/2024 Postmenopausal state04/24/2024Essential zwirdzuwqgjq17/01/2023Essential (primary) fwprpofacjfl46/01/2023ge-related osteoporosis without current pathological pkxswcqi95/05/2023hronic kswnordp76/05/2023Eosinophilic lzgwujvghwt72/05/4654Uexnowhikfi15/05/2023Microscopic /05/2023Mitral valve thvojjyo74/05/2023Stress fvsnrduefxtb78/05/0090Rbwneqy52/26/2020 Gastroesophageal reflux jxrqwlb3103/03/2020Barrett's pazwoekda24/26/2020Dupuytrens dgsoporejro88/24/2037Ftgnyilrpotyrr43/29/2017 Resolved Problems ProblemNoted DateDiagnosed DateResolved JgqrFcnajshecqy60 Stomach painreast cancer screening by wjmhymhuk90/17/2024 11/03/2024Pelvic pain in tkecjf52/one cyst of left ankle /Urge afqkfirlujjl01gatston coronary artery calcium score less than 24387/MI 26.0-26.9,adult /1152Nhwhacjmulak60PPV (benign paroxysmal positional vertigo), left/6635Sckpapfwp79 Frequency of yfqztvyqc98HeartburnLUQ pain Nocturiaersonal history of smoking Urethral stricture due to vxohqirdg58 Balance ikcqmkzz46rthritis of right hip Arthritis of hipHypertension, vhbnicalw89 Pure vpzfthuggpunxygpwzco49/04/202201/03/2024Barrett's esophagus with dysplasia Vitamin D wyyqbjniul03 Encounters DateTypeDepartmentCare YrlsHkroftpoict10/04/2025 9:00 AM ESTOffice Visit [facility] [address] [place] [address] [place] [address] Tyler Ervin, DO Well woman exam with routine gynecological exam; Breast cancer screening by mammogram; Postmenopausal state; Chronic left hip pain05/12/2025amboo flowsheet [facility] [address] [place] [address] [place] [phone] Tyler Ervin, DO 02/27/2025bstract Formerly [facility] [address] [place] [phone] Arjun Izquierdo, DO 02/27/2025Refill Formerly [facility] [address] [place] [phone] Arjun Izquierdo, DO Essential pkjjtislwkqg78/11/2025 12:30 PM EDTOffice Visit Formerly [facility] [address] [place] [address] Arjun Izquierdo, DO Greater trochanteric bursitis, left (Primary Dx); Left hip pain02/16/2025amboo flowsheet Formerly [facility] [address] [place] [phone] Arjun Izquierdo, DO 02/16/20257777Zorbiy57/04/2025Results Follow-Up [facility] [address] [place] [phone] Arjun Izquierdo, DO XR foot 3+ views leftfrom Last 3 Months Immunizations ImmunizationAdministration DatesNext DueInfluenza, Injectable, MDCK, preservative free04/19/2020Influenza, Xkgilbickgv49/13/2022,06/15/2021, 04/19/2020,06/20/2019,06/17/2018Influenza, injectable, MDCK, preservative free, zvbgyyfsfdqe60/13/2022,06/15/2021,06/17/2018Influenza, injectable, MDCK, bwopurqoasag32/13/2019Influenza, injectable, drfypvddcmqc43/10/2021Janssen MFKG-RlQ-317/26/2021,1Pfizer Purple Cap SARS-CoV-2 Vaccination 1Pneumococcal Conjugate PCV Tetanus toxoid, adsorbed 01/02/2007Zoster, Kyunwddzxhu79/27/2022,10/10/2021 Family History Medical HistoryRelationNameCommentsProstate cancerBrotherAsthmaFatherHeart diseaseFatherHyperlipidemiaFatherHypertensionFatherHeart diseaseMother HyperlipidemiaMotherHypertensionMotherRelationNameStatusCommentsBrotherDeceased patient has 2 brothersFatherDeceasedMotherDeceasedSisterpatient has 1 sisterSon 1AliveSon 2Alive Social History Tobacco UseTypesPacks/DayYears UsedDateSmoking Tobacco: FormerCigarettesQuit: 07/09/1977Smokeless Tobacco: Never Tobacco Cessation:Counseling Given: Yes Alcohol UseStandard Drinks/WeekCommentsYes3 (1 standard drink = 0.6 oz pure alcohol)1-2 drinks 2-3 times a weekHumiliation, Afraid, Rape, and Kick questionnaireAnswerDate RecordedWithin the last year, have you been afraid of your partner or ex-partner?No07/09/2023Within the last year, have you been humiliated or emotionally abused in other ways by your partner or ex-partner?No 07/09/2023Within the last year, have you been kicked, hit, slapped, or otherwise physically hurt by your partner or ex-partner?No07/09/2023Within the last year, have you been raped or forced to have any kind of sexual activity by your part ner or ex-partner?No07/09/2023Social Connection and Isolation PanelAnswerDate RecordedIn a typical week, how many times do you talk on the phone with family, friends, or neighbors?More than three times a week07/09/2023How often do you get together with friends or relatives?Three times a week07/09/2023How often do you attend islam or taoism services?1 to 4 times per year07/09/2023o you belong to any clubs or organizations such as islam groups, unions, fraternal or athletic groups, or school groups?No07/09/2023ttends Club or Organization MeetingsNot on file07/09/2023re you , , , , never , or living with a partner?Thatkla8107/09/2023UDIT-CAnswerDate RecordedQ1: How often do you have a drink containing alcohol?2-3 times a week 07/09/2023Q2: How many drinks containing alcohol do you have on a typical day when you are drinking?1 or Q3: How often do you have six or more drinks on one occasion?Never07/09/2023Overall Financial Resource Strain (CARDIA) AnswerDate RecordedHow hard is it for you to pay for the very basics like food, housing, medical care, and heating?Not hard at all07/09/2023HQ-2AnswerDate RecordedPatient Health Questionnaire-2 Hfltp789[facility] [place] [facility] - Occupational Stress QuestionnaireAnswerDate RecordedDo you feel stress - tense, restless, nervous, or anxious, or unable to sleep at night because yourmind is troubled all the time - these days?Not at all07/09/2023 Exercise Vital SignAnswerDate RecordedOn average, how many days per week do you engage in moderate to strenuous exercise (like a brisk walk)?1 day07/09/2023On average, how many minutes do you engage in exercise at this level?20 min 07/09/2023Hunger Vital SignAnswerDate RecordedWithin the past 12 months, you worried that your food would run out before you got the money to buymore.Never true07/09/2023Within the past 12 months, the food you bought just didn't last and you didn't have money to get more.Never true07/09/2023RAPARE - TransportationAnswerDate RecordedIn the past 12 months, has lack of transportation kept you from medical appointments or from getting medications?No 07/09/2023In the past 12 months, has lack of transportation kept you from meetings, work, or from getting things needed for daily living?No07/09/2023 Housing Stability Vital SignAnswerDate RecordedIn the last 12 months, was there a time when you were not able to pay the mortgage or rent on time?No07/09/2023In the last 12 months, how many places have you lived?In the last 12 months, was there a time when you did not have a steady place to sleep or slept in [place] (including now)?No4CommentsNoSex and Gender InformationValueDate RecordedSex Assigned at SkazeZzueon89/03/2023 11:04 AM EDT Legal FnxLkzgfl76/15/2023 6:42 PM EDTGender KoiamunsVxpbqj80/03/2023 11:04 AM EDTSexual PobnvijitooKkannjfx15/03/2023 11:04 AM EDT Last Filed Vital Signs Vital SignReadingTime TakenCommentsBlood Szjxvrti109/8205/12/2025 9:15 AM EST Byvgs038802/16/2025 12:27 PM KHCFlbirukxamw88.8 ??C (98.2 ??F)02/16/2025 12:27 PM EDTRespiratory Rate--Oxygen Bpxzevjmfe79%02/16/2025 12:27 PM EDTInhaled Oxygen Concentration--Uzmwyz33.1 kg (148 lb)05/12/2025 9:15 AM ETDYoszrj486.5 cm (5' 2 )02/16/2025 12:27 PM EDTBody Mass Index27.0702/16/2025 12:27 PM EDT Plan of Treatment DateTypeDepartmentCare Team (Latest Contact Info)Coefixznzuw72/12/2026 8:30 AM ESTProcedure Visit [facility] [address] [place] [address] Tyler Ervin, [address] [place], [place] [phone] Health MaintenanceDue DateLast DoneCommentsCT Tjcaauzmbuwp33/10/1957FIT-DNA 1955FIT1955FOBT1955 9869Saradqxwsvhdu89/10/1957COVID-19 Vaccine ( season), 10/07/2020, 10/01/2020, Additional history existsInfluenza Vaccine (#1)5108/21/2021, 06/20/2022, 06/17/2021, Additional history vhaoqmEinuntthe95, 04/20/2023, 04/18/2022, Additional history existsMedicare Annual Wellness (AWV)05/12/2026 05/12/2025, 11/03/2024, 04/24/2024, Additional history existsColonoscopy 9010/21/2018, 10/21/2018Colorectal Cancer Arunxjrfq95/15/2029 Pneumococcal Vaccine: 65+ GmyosAelriuaaa64/03/2022 Procedures Procedure NamePriorityDate/TimeAssociated DiagnosisCommentsMM TOMOSYNTHESIS SCREENING BI05/19/2024 9:04 AM EST NTHCECIBGTTEvwsexe80/15/2019 from Last 3 Months or Most Recently Relevant to Health Maintenance Results * MM TOMOSYNTHESIS SCREENING BI (05/19/2024 9:04 AM EST)Anatomical Region LateralityModalityOtherSpecimen (Source)Anatomical Location / Laterality Collection Method / VolumeCollection TimeReceived Time05/19/2024 9:04 AM EST Narrative 05/19/2024 9:05 AM EST The [facility] ?[address] ? [place] [address] ? Mammography Report ? Signed ? Patient: WALE,IVONNE Olmedo ?MR#: [id number] ?? : 1955 ?Acct:[id number] ?? Age/Sex: 68 / F ?ADM Date: 05/19/24 ?? Loc: MAMMO ? Attending Dr: Tyler Ervin D.O. ? Ordering Physician: Tyler Ervin D.O. ?Results: ? Date of Service: 05/19/24 ?Follow Up: ? Procedure(s): MM tomosynthesis screening BI ?? Accession Number(s): [id number] ? cc: Tyler Ervin D.O.; Physician,Non-Staff MRosalbaD. ? Patient Name: ? IVONNE ECHEVARRIA ? MR#: [id number] ? : 1955 ? Exam Date: 05/19/2024 [...] at age 71. ? LOCATION: ? [facility] ? BREAST COMPOSITION: ? The breasts are [...] By: ?Tanmay Becerril M.D. ? Signed By: ?05/19/24904 ? DD/ 3 ? TD/TT: ? Supervisor Stave Finishing: Procedure Note Radiology, Radiologist, - 05/19/2024 [place] [address] Mammography Report Signed Patient: IVONNE ECHEVARRIA JMR#: [id number] : 1955cct:[id number] Age/Sex: 68 / FADM Date: 05/19/24 Loc: MAMMO Attending Dr: Tyler Ervin D.O. Ordering Physician: Tyler Ervin D.O.Results: Date of Service: 05/19/24Follow Up: Procedure(s): MM tomosynthesis screening BI Accession Number(s): [id number] cc: Tyler Ervin D.O.; Physician,Non-Staff M.DRosalba Patient Name: IVONNE ECHEVARRIA MR#: [id number] : 1955 Exam Date: 05/19/2024 Ordering Doctor: [...] LOCATION: The [facility] BREAST COMPOSITION: The breasts are extremely dense, [...] Becerril M.D. Signed By:05/19/24904 DD/ 3 TD/TT: Supervisor Stave Finishing: Authorizing ProviderResult TypeResult StatusCorey Aziza DOCLINISYNC IMAGINGFinal Result * Colonoscopy (10/21/2018)Anatomical RegionLateralityModalityEndoscopySpecimen (Source)Anatomical Location / LateralityCollection Method / VolumeCollection TimeReceived Time10/21/2018 Narrative 10/03/2017 12:00 AM EDT PERFORMED AT [facility] LOCATION:[facility] [facility] Procedure Note CONVERSION, GENERIC - 11/22/2022 PERFORMED AT [facility] [place]ATION:[facility] [place] [facility] Authorizing ProviderResult TypeResult StatusMatthew Kori Izquierdo DOENDOSCOPY PROCEDURE ORDERABLESFinal Result from Last 3 Months or Most Recently Relevant to Health Maintenance Insurance Care Teams Team MemberRelationshipSpecialtyStart DateEnd Arjun Izquierdo DO [address] [place] [address] [facility] - [facility]23 Arjun Izquierdo DO [address] [place] [address] PCP - Medical [place] MA07/09/2511
--- OUTSIDE RECORDS SUMMARY | 2025-05-12 12:14 | XMS_ITS | CCD ---
Author Organization [facility] Care Team Providers Care Electro Mechanical Assembler Name Role Phone Deisy Zamoratatiana Sheikh Unavailable Unavailable Unavailable Conchis Zamora Primary Care Provider Gasper Hamilton MD Unavailable CONCHIS ZAMORA Primary Care Physician Malvin Westbrook Unavailable JEWELL Robert Attending Unavailable Jakob, JEWELL Ji Referring Unavailable Petjanelle, Dr. Conchis Mason Primary Care Un available Petznick, Dr. Conchis Mason Primary Care Un available Lyster, Dr. Ricardo Lopez Attending Unavail able Lyster, Dr. Ricardo Lopez Referring Unavail able Robert, Ms. Ji Attending Unavailable Jakob, Ms. Ji Referring Unavailable Petznarlyn, Dr. Conchis Mason Primary Care Un available PETZNARLYN, CONCHIS Admitting Unavailable PETZNICK, CONCHIS Attending Unavailable PETZNICK, [facility] Primary Care Unavailable PETZNICK, CONCHIS Consulting Unavailable FOUZIA, DR GALINA Garrido Admitting Unavailable FOUZIA, DR GALINA Garrido Attending Unavailable PETZNICK, [facility] Primary Care Unavailable PETZNICK, [facility] Primary Care Unavailable HAY ., DR MALIK Admitting Unavailable HAY ., DR MALIK Attending Unavailable ZIEBER, DR BRIAN Haynes Consulting Unavailable GUSTAVO ., DR MALIK Consulting Unavailable AZIZA ., DR RIDDLE Admitting Unavailable AZIZA ., DR RIDDLE Attending Unavailable PETZNICK, [facility] Primary Care Unavailable AZIZA ., DR RIDDLE Consulting Unavailable AZIZA ., DR RIDDLE Admitting Unavailable AZIZA ., DR RIDDLE Attending Unavailable PETZNICK, [facility] Primary Care Unavailable FOUZIA, DR GALINA Garrido Consulting Unavailable AZIZA ., DR RIDDLE Consulting Unavailable ADEBPEDRO, DR BRIAN Haynes Consulting Unavailable Filemon Meléndez Unavailable Petznick, DO Conchis Primary Care Provider [phone] MD John Robert Emergency Provider Petznick DO, Conchis Mason Primary Care Provid er Petznick DO, Conchis Sheikh Unavailable Petznick DO, Conchis Sheikh Primary Care Provider Morgan TILLMAN Attending Unavailable Morgan TILLMAN Attending Unavailable Ludmila Ruff Attending Unavailable Petznick DO, Conchis Sheikh Primary Care Provider [phone] Petznick DO, Conchis C Unavailable Malvin Westbrook Attending Unavailable Malvin Westbrook Admitting Unavailable Petznick, Conchis Primary Care Unavailable Petznick DO, Conchis C Unavailable [phone] Petznick DO, Conchis Sheikh Primary Care Provider Petznick DO, Conchis Sheikh Primary Care Provider LACEY DAMICO Referring Unavailable PETZNICK, CONCHIS C Primary Care Unavailable LACEY DAMICO Referring Unavailable PETZNICK, CONCHIS Sheikh Primary Care Unavailable LACEY DAMICO Attending Unavailable LACEY DAMICO Referring Unavailable PETZNICK, CONCHIS C Primary Care Unavailable LACEY DAMICO Attending Unavailable FREDDIE DAMICOA Referring Unavailable PETZNICK, CONCHIS C Primary Care Unavailable RICARDO CANALES Attending Unavailable RICARDO CANALES Attending Unavailable PETZNICK, CONCHIS Sheikh Referring Unavailable RICARDO CANALES Attending Unavailable PETZNICK, CONCHIS Sheikh Referring Unavailable PETZNICKTASHA Attending Unavailable PETZNICK, CONCHIS C Attending Unavailable PETZNICK, CONCHIS C Attending Unavailable PETZNICK, CONCHIS C Referring Unavailable PETZNICK, CONCHIS C Attending Unavailable PETZNICK, CONCHIS C Referring Unavailable PETZNICK, CONCHIS C Attending Unavailable SHARA DUMONT Attending Unavailable CONCHIS BUENO Referring Unavailable KRISHAN PERRY Attending Unavailable CONCHIS BUENO Referring Unavailable RAIN STARR Attending Unavailable CONCHIS BUENO Referring Unavailable KRISHAN PERRY Attending Unavailable CONCHIS BUENO Referring Unavailable KRISHAN PERRY Attending Unavailable CONCHIS BUENO Referring Unavailable KRISHAN PERRY Attending Unavailable BUENO, CONCHIS J Referring Unavailable STARR, RAIN Attending Unavailable BUENO, CONCHIS J Referring Unavailable JR. VY, CHERIE Sheikh Attending Unavaila ble [place]LANDO, KRISHAN Attending Unavailable BUENO, CONCHIS J Referring Unavailable [place], KRISHAN Attending Unavailable BUENO, CONCHIS J Referring Unavailable STARR, RAIN Attending Unavailable BUENO, CONCHIS J Referring Unavailable [place], KRISHAN Attending Unavailable BUENO, CONCHIS J Referring Unavailable BRDEVON WHEATLEY Attending Unavailable BUENO, CONCHIS J Referring Unavailable [place], KRISHAN Attending Unavailable BUENO, CONCHIS J Referring Unavailable [place], KRISHAN Attending Unavailable BUENO, CONCHIS J Referring Unavailable [place], KRISHAN Attending Unavailable BUENO, CONCHIS J Referring Unavailable STARR, RAIN Attending Unavailable BUENO, CONCHIS J Referring Unavailable [place], KRISHAN Attending Unavailable BUENO, CONCHIS J Referring Unavailable PETZNICK, CONCHIS C Attending Unavailable [place], KRISHAN Attending Unavailable BUENO, CONCHIS J Referring Unavailable JR. VY, CHERIE Sheikh Attending Unavaila ble TYLER ERVIN Attending Unavailable [place], KRISHAN Attending Unavailable BUENO, CONCHIS [...] Unavailable BUENO, CONCHIS J Referring Unavailable JR. VY, CHERIE Sheikh Attending Unavaila ble Allergies Allergy ClassificationReported Allergen(s)Allergy TypeDate of OnsetReaction(s) Facility (20 sources)Clarithromycin; Translations: [Biaxin]Drug Mikkcxr35-14-2773 [facility])DogAllergy to -12-3555[facility] (20 sources)Glycerin; Translations: [saliva substitutes]Drug Dpexufb12-70-9860 Diarrhea (finding), DiarrheaExecutive [facility] of [facility] ([facility] sources)Clarithromycin; Translations: [clarithromycin]Drug [id number] [facility] Medications Current Medications MedicationDrug Class(es)DatesSig (Normalized)Sig (Original)[id number] 200 actuat albuterol 0.09 mg/actuat metered dose inhaler (20 sources)beta2-Adrenergic AgonistStart: 54-25-4256wzofjqqbx HFA 90 mcg/act inhaler every 6 (six) hours. 06/08/2022 Activebetamethasone 3 mg/ml / betamethasone acetate 3 mg/ml injectable suspension (4 sources)CorticosteroidStart: 02-16-2025 End: 97-12-0867ihqngqalcmyan acetate-betamethasone sodium phosphate (Celestone) injection 6 mgStart: 02-16-2025 End: mg, Intra-articular, Once, On Sun02/16/25 at 2115, For 1 dose Start: 02-16-2025 End: 10-28-5729jbuyqdldulhfl acetate-betamethasone sodium phosphate (Celestone) injection 6 mgStart: 02-16-2025 End: mg, Intra-articular, Once, On Sun02/16/25 at 2115, For 1 dose biotin 1 mg oral tablet (20 sources)biotin 1000 MCG tablet Take by mouth Daily. ActiveBiotin 1 mg tab Take by mouth once daily. 0 ActiveComment on above:Take by mouth once daily. calcium carbonate 1500 mg oral tablet (20 sources)take 1 tablet by mouth in the morningcalcium carbonate 1500 (600 Ca) MG tablet Take 600 mg by mouth in the morning. Activetake 1 tablet by mouth once dailycalcium carbonate 600 mg calcium (1,500 mg) tablet Take 1 tablet (1,500 mg) by mouth once daily. Activecalcium carbonate 1500 mg / cholecalciferol 200 unt oral tablet (2 sources)Vitamin DStart: 87-08-2088hoci 1 tablet by mouth once dailyCalcium Carbonate-Vitamin D3 (Calcium + D) 600 mg-5 mcg (200 unit) Tablet Active 1 TAB PO Daily October 18, 2021 11:00pmCo Q 10 (5 sources)Co Q 10 ActiveCo Q-10 (7 sources)Start: 94-93-9243hudj 200 mg by mouth once dailyCo Q-10 200 mg, Oral, Daily, Refills(s) 0, Prophylaxis Start Date: 09/18/17 Status: Orderedestradiol 0.1 mg/ml vaginal cream (20 sources)EstrogenStart: 97-78-8476Vczufrw 0.1 mg/g Cream 1 gm, Vaginal, MonFri, 42.5 gm, Refill(s) 11, apply 1 gram 2x a week, [facility]/pharmacy #[id number], 157, cm, 01/15/23 9:07:00 EDT, Height/Length Dosing, 65, kg, 01/15/23 9:07:00 EDT, Weight Dosing Start Date: 05/12/23 Status: OrderedStart: 01-19-9824jhbymvifu (Estrace) 0.1 MG/GM vaginal cream APPLY 1 GRAM VAGINALLY TWICE A WEEK (SUNDAY & SUNDAY) 12/30/2022 ActiveStart: 76-16-6729Wxdkdlclz Active 1 APPLICATOR VAGINAL Twice a Week October 18, 2021 11:00pmStart: 26-66-1846ozeqoqxfp (ESTRACE) 0.01 % (0.1 mg/gram) vaginal cream Use 1 g vaginally two times a week. 0 03/28/2021 ActiveStart: 97-65-5834mctacsotc 0.1 mg/g vaginal cream 1 gram, Vaginal, MonFri, apply 1gram 2x a week, # 42.5 gm, Refills(s) 7, Pharmacy: [facility] ([place]), 157, cm, 03/28/21 10:13:00 EDT, Height/Length Dosing, 67, kg, 03/28/21 10:13:00 EDT, Weight Dosing Start Date: 03/28/21 Status: Ordered estradiol (Estrace) 0.01 % (0.1 mg/gram) vaginal cream Insert 0.25 Applicatorfuls (1 g) into the vagina 2 times a week. ActiveComment on above:Use 1 g vaginally two times a week.estradiol 0.1 mg/g vaginal cream (6 sources)Start: 36-36-9095oisbdpbot 0.1 mg/g vaginal cream 1 gram, Vaginal, MonFri, apply 1gram 2x a week, # 42.5 gm, Refills(s) 7, Pharmacy: [facility]/pharmacy #[id number], 157, cm, 01/20/22 8:35:00 EDT, Height/Length Dosing, 67, kg, 01/20/22 8:35:00 EDT, Weight Dosing Start Date: 05/02/22 Status: OrderedStart: 03-28-2021 estradiol 0.1 mg/g vaginal cream 1 gram, Vaginal, MonFri, apply 1gram 2x a week, # 42.5 gm, Refills(s) 7, Pharmacy: [facility]), 157, cm, 03/28/21 10:13:00 EDT, Height/Length Dosing, 67, kg, 03/28/21 10:13:00 EDT, Weight Dosing Start Date: 03/28/21 Status: Orderedhydrocortisone 0.025 mg/mg topical ointment (16 sources)CorticosteroidStart: 03-98-1802jszjsxythsueki 2.5 % ointment APPLY TO AFFECTED AREAS AROUND EYES TWICE A DAY FOR UP TO 3 WEEKS THEN NEEDED FOR FLARES 09/26/2024 ActiveStart: 25-74-4343buoh 25 mg rectal route at bedtime hydrocortisone 25 mg rectal suppository 25 mg = 1 supp, Rectal, Bedtime, # 36 supp, Refills(s) 1, Pharmacy: [facility]), 157.5, cm, 09/01/20 14:14:00 EST, Height/Length Dosing, 67.2, kg, 09/01/20 14:14:00 EST, Weight Dosing Start Date: 12/09/20 Status: Orderedhydrocortisone 25 mg rectal suppository (3 sources)Start: 67-36-9423jckl 25 mg rectal route at bedtimehydrocortisone 25 mg rectal suppository 25 mg = 1 supp, Rectal, Bedtime, # 36 supp, Refills(s) 1, Pharmacy: [facility]), 157.5, cm, 09/01/20 14:14:00 EST, Height/Length Dosing, 67.2, kg, 09/01/20 14:14:00 EST, Weight Dosing Start Date: 12/09/20 Status: Orderedibandronic acid 150 mg oral tablet (20 sources)BisphosphonateStart: 01-72-0399xofe 1 tablet by mouth every month ibandronate (Boniva) 150 MG tablet Indications: Age-related osteoporosis without current pathological fracture TAKE 1 TABLET BY MOUTH ONCE A MONTH WITH PLAIN WATER 60 MINUTES BEFORE THE FIRST FOOD, BEVERAGE OR MEDICINE OF THE DAY. 12 tablet 02/14/2024 ActiveStart: 84-95-2771hgrosmsftks (Boniva) 150 mg tablet 1 tablet (150 mg) every 30 (thirty) days. 02/14/2024 Activelatanoprost 0.05 mg/ml ophthalmic solution (20 sources)Prostaglandin AnalogStart: 16-88-7614Gnbdryeebfs Active DROPS OPHTHALMIC May 14, 2024 12:00amStart: 81-13-0162imse 1 drop(s) into the eye(s) at bedtimelatanoprost (Xalatan) 0.005 % ophthalmic solution Administer 1 drop into both eyes at bedtime. 11/14/2022 ActiveLORazepam 1 mg oral tablet (20 sources)BenzodiazepineStart: 10-23-2023 End: 37-95-0045OZTumzvdv (Ativan) 1 MG tablet Indications: Anxiety Take 1 tablet (1 mg) by mouth See administration instructions for 10 days 1 by mouth 1 hour prior to MRI 1 tablet 10/23/2023 10/02/2024 Discontinued (Therapy completed) losartan potassium 50 mg oral tablet (16 sources)Angiotensin 2 Receptor BlockerStart: 11-04-2024 End: 84-52-8636hqrs 1 tablet by mouth once dailylosartan (Cozaar) 50 MG tablet Indications: Essential hypertension TAKE 1 TABLET BY MOUTH EVERY DAY90 tablet 02/27/2025 Activemeclizine hydrochloride 25 mg oral tablet (5 sources)AntiemeticStart: 41-12-5628mwfcxujmx 25 mg Tab Refills(s) 0 Start Date: 01/15/23 Status: OrderedStart: 01-07-2023 End: 91-96-7119mabysdhfb 25 mg Tab Refills(s) 0 Start Date: 01/15/23 Status: Xsytwgj98 hr metoprolol succinate 50 mg extended release oral tablet (20 sources)beta-Adrenergic BlockerStart: 11-86-3831gvat 50 mg by mouth once dailyMetoprolol Succinate Active 50 MG PO Daily May 14, 2024 12:00amStart: 05-12-2024 End: 16-10-1243cpsw 1 tablet by mouth once dailymetoprolol succinate XL (Toprol- XL) 50 MG 24 hr tablet TAKE 1 TABLET (50 MG) BY MOUTH EVERY DAY DO NOT CRUSH OR CHEW 02/05/2025 ActiveStart: 04-02-2024 End: 17-66-7888lbop 1 tablet by mouth every twenty-four hours, then take 0.5 tablet by mouth once dailymetoprolol succinate XL (Toprol-XL) 25 MG 24 hr tablet Indications: Primary hypertension TAKE 1 AND1/2 TABLETS DAILY BY MOUTH EVERY DAY 135 tablet 04/02/2024 02/16/2025 Discontinued (Therapy completed)Start: 18-87-6530xdwl 1 tablet by mouth every twenty-four hours, then take 0.5 tablet by mouth once dailymetoprolol succinate XL (Toprol-XL) 25 MG 24 hr tablet Indications: Primary hypertension (CMS/HCC) TAKE 1 AND 1/2 TABLETS DAILY BY MOUTH EVERY DAY 135 tablet 03/20/2024 ActiveStart: 88-37-7170wwpm 1 tablet by mouth every twenty-four hours, then take 0.5 tablet by mouth once daily metoprolol succinate XL (Toprol-XL) 25 MG 24 hr tablet Indications: Primary hypertension (CMS/HCC) TAKE 1 AND 1/2 TABLETS DAILY BY MOUTH EVERY DAY 135 tablet 12/21/2023 ActiveStart: 09-22-2021 End: 00-14-7245Zgyybtachy Succinate Discontinued 25 MG PO October 18, 2021 11:00pm May 14, 2024 1:30pm End: 17-52-2579hobo 1.5 tablets by mouth once dailymetoprolol succinate XL (Toprol-XL) 25 mg 24 hr tablet Take 1.5 tablets (37.5 mg) by mouth once daily. Do not crush or chew. Activetake 1 tablet by mouth every twelve hoursMetoprolol Tartrate 37.5 MG 1 tablet with food Orally Twice a day Activetake 1.5 tablets by mouth once dailyToprol XL 25 MG Oral Tablet Extended Release 24 Hour TAKE 1.5 TABLET Daily Quantity: 0 Refills: 0 Ordered: 15-May-2022 DO ActiveComment on above:Take 1 tablet by mouth once daily.montelukast 10 mg oral tablet (20 sources)Leukotriene Receptor AntagonistStart: 99-27-4339iyod 1 tablet by mouth once dailymontelukast (Singulair) 10 MG tablet Indications: Wheezing TAKE 1 TABLET BY MOUTH EVERY DAY 90 tablet 1 06/25/2023 ActiveMultiple Vitamins Tab (7 sources)Start: 18-70-2527vzyf 1 tablet by mouth once dailyMultiple Vitamins Tab 1 tab(s), Oral, Daily, Refill(s) 0, Prophylaxis Start Date: 09/18/17 Status: CscyytqRefymdla-Iwo-Tevlp Acid-Vit K (Multi For Her 50 Plus) 400-80 mcg Capsule (2 sources)Start: 65-39-8233easr 50-400 capsules by mouth once daily Eivqqudw-Umq-Swbmp Acid-Vit K (Multi For Her 50 Plus) 400-80 mcg Capsule Active 1 CAP PO Daily September 16, 2018 11:00pmStart: 84-82-4115edsk 50-400 capsules by mouth once ktiadWnrjvacl-Eea-Ojlld Acid-Vit K (Multi For Her 50 Plus) 400-80 mcg Capsule Active 1 CAP PO Daily September 17, 2018 12:00ammultivit-min/ferrous fumarate (MULTI VITAMIN ORAL) (8 sources)take 1 tablet by mouth once dailymultivit-min/ferrous fumarate (MULTI VITAMIN ORAL) Take 1 tablet by mouth once daily. Activetake 1 tablet by mouth once dailymultivit-min/ferrous fumarate (MULTI VITAMIN ORAL) Take 1 tablet by mouth once daily. 0 ActiveMultivitamins (5 sources)Multivitamins Orally ActiveNirmatrelvir&Ritonavir 300/100 (Paxlovid, 300/100,) 20 x 150 MG & 10 x 100MG tablet therapypack (6 sources)Start: 07-04-2024 End: 18-54-8412yybi 1 tablet by mouth once dailyNirmatrelvir&Ritonavir 300/100 (Paxlovid, 300/100,) 20 x 150 MG & 10 x 100MG tablet therapypack Indications: COVID Take 1 Package by mouth Daily 1 each 07/04/2024 10/02/2024 Discontinued (Therapy completed)Start: 91-13-9066taus 1 tablet by mouth once daily Nirmatrelvir&Ritonavir 300/100 (Paxlovid, 300/100,) 20 x 150 MG & 10 x 100MG tablet therapypack Indications: COVID Take 1 Package by mouth Daily 1 each 07/04/2024 Activenitrofurantoin, macrocrystals 25 mg / nitrofurantoin, monohydrate 75 mg oral capsule (1 source)Nitrofuran AntibacterialStart: 09-11-2022 End: 53-26-2452nmoh 1 capsule by mouth twice dailyMacrobid 100 mg Cap 100 mg = 1 cap(s), Oral, BID, X 5 day(s), # 10 cap(s), Refills(s) 0, Pharmacy: [facility]/pharmacy #[id number], 157, cm, 01/20/22 8:35:00 EDT, Height/Length Dosing, 67, kg, 01/20/22 8:35:00 EDT, Weight Dosing Start Date: 09/11/22 Stop Date: 09/16/22 Status: Orderedondansetron 4 mg disintegrating oral tablet (5 sources)Serotonin-3 Receptor AntagonistStart: 08-26-2157mmctvmjrdsm 4 mg Dis Tab Refills(s) 0 Start Date: 01/15/23 Status: OrderedStart: 01-07-2023 End: 07-21-6546Paracthxqsu Discontinued 4 MG PO every 6 to 8 hours January 06, 2023 11:00pm May 14, 2024 1:29pmpantoprazole 40 mg delayed release oral tablet (20 sources)Proton Pump InhibitorStart: 63-96-7171fwal 1 tablet by mouth once dailypantoprazole 40 mg Oral EC Tab 40 mg = 1 tab(s), Oral, Daily, # 10 tab(s), Refills(s) 0, Pharmacy: [facility]/pharmacy #[id number], 157.5, cm, 02/25/20 15:53:00 EDT, Height/Length Dosing, 65, kg, 02/25/20 15:53:00 EDT, Weight Dosing Start Date: 05/12/20 Status: OrderedStart: 09-17-2018 End: 66-09-9774awlb 40 mg by mouth once daily in the morningPantoprazole Active 40 MG PO Every morning May 14, 2024 1:38pmComment on above:Take 40 mg by mouth once daily.PARoxetine hydrochloride 20 mg oral tablet (20 sources)Serotonin Reuptake InhibitorStart: 36-47-0368txzt 1 tablet by mouth once dailyPARoxetine (Paxil) 20 MG tablet Indications: Anxiety TAKE 1 TABLET BY MOUTH DAILY 90 tablet 3 11/05/2024 ActiveStart: 82-17-2163sxlc 20 mg by mouth once dailyPaxil 20 mg, Oral, Daily, Refills(s) 0, Depression Start Date: 09/18/17 Status: Orderedtake 1 tablet by mouth once dailyPARoxetine (PAXIL) 10 mg tablet Take 10 mg by mouth once daily. 0 ActiveComment on above:Take 10 mg by mouth once daily. predniSONE 20 mg oral tablet (2 sources)Start: 10-02-2024 End: 75-05-7135uoox 2 tablets by mouth once dailypredniSONE (Deltasone) 20 MG tablet Indications: Acute bronchitis, unspecified organism Take 2 tablets (40 mg) by mouth Daily for 5 days 10 tablet 10/02/2024 10/07/2024 Activepsyllium 3400 mg powder for oral suspension (6 sources)Start: 05-14-2024 End: 01-21-8182Yozermsq Husk (Metamucil) 3.4 gram/5.4 gram powder Active 2 TSP PO Daily May 14, 2024 1:37pm mix into at least 8 oz of water or juice before administeringStart: 47-17-4777wmez 8 capsules by mouth once daily Metamucil 525 mg oral capsule 2,625 mg = 5 cap(s), Oral, qPM, Take 2 hour apart from the other medications with at least 8 ounces of water, # 160 cap(s), Refills(s) 4, Pharmacy: [facility]/pharmacy #[id number], 157.5, cm, 09/01/20 14:14:00 EST, Height/Length Dosing, 67.2, kg, 09/01/20 14:14:... Start Date: 09/01/20 Status: Orderedrosuvastatin calcium 20 mg oral tablet (20 sources)HMG-CoA Reductase InhibitorStart: 05-12-2024 End: 90-70-5217pdsd 1 tablet by mouth once dailyrosuvastatin (Crestor) 20 mg tablet Indications: Mixed hyperlipidemia Take 1 tablet (20 mg) by mouth once daily. 30 tablet 11 05/12/2024 05/12/2025 ActiveStart: 08-15-2021 End: 80-84-8850tjcm 1 tablet by mouth in the morningrosuvastatin (Crestor) 10 MG tablet Indications: Hyperlipidemia, unspecified hyperlipidemia type Take 1 tablet (10 mg) by mouth in the morning. 90 tablet 2 02/22/2023 ActiveStart: 09-17-2018 End: 10-16-1836Mykyzldsibzj (Crestor) 10 mg Tablet Discontinued 10 MG PO Q48H September 16, 2018 11:00pm May 14, 2024 1:29pm Every other dayStart: 82-34-4470ssei 10 mg by mouth once daily at bedtimeCrestor 10 mg, Oral, Once a day (at bedtime), Refills(s) 0, High cholesterol Start Date: 09/18/17 Status: Orderedtake 1 tablet by mouth once dailyrosuvastatin (CRESTOR) 5 mg tablet Take 5 mg by mouth once daily. 0 ActiveComment on above:Take 5 mg by mouth once daily.tetrahydrozoline hydrochloride 0.5 mg/ml ophthalmic solution (2 sources)take 1 drop(s) into the eye(s) four times daily as neededEye Drops 0.05 % 1 drop into affected eye as needed Ophthalmic Four times a day Active tiZANidine 2 mg oral tablet (15 sources)Central alpha-2 Adrenergic AgonistStart: 97-38-6139xbZWFaylfk (Zanaflex) 2 MG tablet Indications: Greater trochanteric bursitis, left TAKE 1 TO 2 TABLETS BY MOUTH NEEDED AT BEDTIME FOR MUSCLE SPASMS 180 tablet 1 11/10/2024 ActiveStart: 10-17-2024 End: 78-44-7720joFSKwbvsf (Zanaflex) 2 MG capsule Indications: Greater trochanteric bursitis, left Take 1-2 capsules (2-4 mg) by mouth as needed at bedtime for muscle spasms 60 capsule 1 10/17/2024 11/16/2024 Activetriamcinolone acetonide 1 mg/ml topical cream (4 sources)CorticosteroidStart: 04-14-2024 End: 61-24-4448dyltyanokndhg (Kenalog) 0.1 % cream Indications: Irritation of eyelid Apply topically 2 (two) timesa day for 7 days 45 g 1 04/14/2024 04/21/2024 Activeubidecarenone 100 mg oral capsule (18 sources)Start: 51-03-3112Ctwkqbqt Q10 (Co Q-10) 100 mg Capsule Active 200 MG PO Daily September 16, 2018 11:00pmtake 1 capsule by mouth once dailycoenzyme Q- 10 200 mg capsule Take 1 capsule (200 mg) by mouth once daily. Active ubidecarenone 100 mg / vitamin e 5 unt oral capsule (20 sources)coenzyme Q-10 100 MG capsule 1 (one) time each day at the same time. Active Completed/Discontinued Medications MedicationDrug Class(es)DatesSig (Normalized)Sig (Original)aspirin 81 mg delayed release oral tablet (20 sources)Platelet Aggregation Inhibitor, Nonsteroidal Anti-inflammatory Drug Start: 09-17-2018 End: 52-45-3327misp 1 tablet by mouth once dailyAspirin (Aspirin Low Dose) 81 mg Tablet,Delayed Release (Dr/Ec) Discontinued 81 MG PO Daily September 16, 2018 11:00pm May 14, 2024 1:31pmStart: 76-75-7984qkgv 81 mg by mouth once daily aspirin 81 mg, Oral, Daily, Refills(s) 0, Prophylaxis Start Date: 09/18/17 Status: OrderedComment on above:Take 81 mg by mouth once daily.bisoprolol fumarate 5 mg oral tablet (16 sources)beta-Adrenergic BlockerStart: 09-18-2017 End: 47-77-6741xadm 5 mg by mouth once daily at bedtimeBisoprolol Fumarate Discontinued 5 MG PO Daily at bedtime September 16, 2018 11:00pm October 19, 2021 6:13amCalcium Carbonate / vitamin D3 (3 sources)take 1 tablet by mouth once dailycalcium carbonate/vitamin D3 (CALCIUM 600 + D,3, ORAL) Take 1 tablet by mouth once daily. Calcium 600 mg D3 800 IU 0 ActiveComment on above:Take 1 tablet by mouth once daily. Calcium 600 mg D3 800 IUdexamethasone 6 mg oral tablet (5 sources)CorticosteroidStart: 02-06-2025 End: 42-90-2489yylx 1 tablet by mouth once dailydexAMETHasone (Decadron) 6 MG tablet Indications: Left foot pain Take 1 tablet (6 mg) by mouth Daily for 7 days 7 tablet 02/06/2025 02/16/2025 Discontinued (Therapy completed)doxycycline hyclate 100 mg oral capsule (4 sources)Tetracycline-class DrugStart: 10-02-2024 End: 36-37-1810esfloabjkmp (Vibramycin) 100 MG capsule Indications: Acute bronchitis, unspecified organism Take 1 capsule (100 mg) by mouth in the morning and 1 capsule (100 mg) before bedtime. Do all this for 10 days. Take with at least 8 ounces (large glass) of water, do not lie down for 30 minutes after. 20 capsule 10/02/2024 10/17/2024 Discontinuedestrogens, conjugated (halfway) 0.625 mg/ml vaginal cream (2 sources)EstrogenStart: 09-17-2018 End: 04-72-9748Ygqzkmrsjb Estrogens (Premarin) 0.625 mg/gram Cream Discontinued 1 APPLICATOR VAGINAL Twice a Week September 16, 2018 11:00pm October 19, 2021 6:32amfurosemide 20 mg oral tablet (2 sources)Loop DiureticStart: 09-17-2018 End: 80-95-4295jsne 20 mg by mouth once dailyFurosemide Discontinued 20 MG PO Daily September 16, 2018 11:00pm October 19, 2021 6:32amhydroCHLOROthiazide 25 mg / triamterene 37.5 mg oral tablet (8 sources)Potassium-sparing Diuretic, Thiazide DiureticStart: 05-12-2024 End: 31-66-4329yunq 1 tablet by mouth once dailytriamterene-hydrochlorothiazid (Maxzide-25mg) 37.5-25 mg tablet Indications: Essential hypertensionTake 1 tablet by mouth once daily. 30 tablet 11 05/12/2024 11/20/2024 Discontinued (Therapy completed)lutein 20 mg / zeaxanthin 1 mg oral capsule (2 sources)Start: 09-17-2018 End: 66-75-8893hnsc 1 capsule by mouth once dailyLutein-Zeaxanthin Discontinued 1 CAP PO Daily September 16, 2018 11:00pm October 19, 2021 6:32ammagnesium oxide 400 mg oral tablet (17 sources)Start: 11-20-2024 End: 93-42-1400mwkx 1 tablet by mouth in the morningmagnesium oxide (Mag-Ox) 400 MG tablet Take 1 tablet by mouth in the morning and 1 tablet in the evening. 11/20/2024 02/16/2025 Discontinued (Therapy completed)Start: 11-20-2024 End: 07-20-8364kgde 1 tablet by mouth twice dailymagnesium oxide (Mag-Ox) 400 mg (241.3 mg elemental) tablet Indications: Palpitations Take 1 tabletby mouth 2 times a day. 180 tablet 3 11/20/2024 11/20/2025 ActiveStart: 57-72-6237ozzl 1 tablet by mouth once dailyMagnesium Oxide 400 MG Oral Tablet TAKE 1 TABLET DAILY. Quantity: 90 Refills: 3 Ordered: 30-May-2021 Ricardo Christian DO Start : 30-May-2021 Activemeloxicam 15 mg oral tablet (5 sources)Nonsteroidal Anti-inflammatory DrugStart: 10-17-2024 End: 74-00-2379hyiy 1 tablet by mouth once dailymeloxicam (Mobic) 15 MG tablet Indications: Greater trochanteric bursitis, left Take 1 tablet (15 mg) by mouth once per day 30 tablet 3 10/17/2024 11/03/2024 DiscontinuedMulti Vitamin Oral Tablet (8 sources)take 1 tablet by mouth once dailyMulti Vitamin Oral Tablet TAKE 1 TABLET DAILY. Quantity: 0 Refills: 0 Ordered: 30-May-2021 DO ActiveMULTIVITAMIN ORAL (3 sources)take 1 tablet by mouth once dailyMULTIVITAMIN ORAL Take 1 tablet by mouth once daily. 0 ActiveComment on above:Take 1 tablet by mouth once daily. polyethylene glycol 3350 90051 mg powder for oral solution (20 sources)Osmotic LaxativeStart: 02-15-2021 End: 57-39-1440Flxtkwwtowbs Glycol 3350 (Miralax) 17 gram Powder In Packet Discontinued 17 GM PO Daily October 11:00pm May 14, 2024 1:29pm Polyethylene Glycols (3 sources)polyethylene glycol 3350 (MIRALAX ORAL) Take by mouth once daily. 0 ActiveComment on above:Take by mouth once daily.Tc-99m tetrofosmin (Myoview) injection 10 millicurie (1 source)Start: 12-12-2024 End: millicurie, intravenous, Once in imaging, Starting on Sun12/12/24 at 0828, For 1 dose, Bkdcdehnor01 to 90 minutes prior to imaging unless otherwise indicated.Tc-99m tetrofosmin (Myoview) injection 30 millicurie (1 source)Start: 12-12-2024 End: millicurie, intravenous, Once in imaging, Starting on Sun12/12/24 at 0947, For 1 dose, Fbuoalmugq60 to 90 minutes prior to imaging unless otherwise indicated.UBIDECARENONE (CO Q-10 ORAL) (3 sources)take 200 mg by mouth once dailyUBIDECARENONE (CO Q-10 ORAL) Take 200 mg by mouth once daily. 0 ActiveComment on above:Take 200 mg by mouth once daily. Zinc (5 sources)Start: 10-19-2021 End: 29-04-4251jgbu 50 mg by mouth once dailyZinc Discontinued 50 MG PO Daily October 18, 2021 11:00pm May 14, 2024 1:29pmStart: 03-23-9098sqtx 50 mg by mouth once dailyZinc Active 50 MG PO Daily October 19, 2021 12:00amtake 1 tablet by mouth once dailyZinc 50 mg tab Take 50 mg by mouth once daily. 0 ActiveComment on above:Take 50 mg by mouth once daily. Problems Active Problems Problem ClassificationProblemDateDocumented DateEpisodic/ChronicAcquired foot deformities (2 sources)Talipes cavus; Translations: [Congenital pes cavus, unspecified foot] 95-87-2401SmfwntpeXcvbm bronchitis (2 sources)Acute bronchitis; Translations: [Acute bronchitis, unspecified] 69-29-6345GqzedqwoSsbeepx disorders (20 sources)Anxiety; Translations: [Anxiety disorder, unspecified]Onset: 186443-27-2660LxpezrbOcfgzc (7 sources)Acute axzzvd31-62-0394KispigzZahpkze dysrhythmias (20 sources)Multiple premature ventricular complexes; Translations: [Ventricular premature depolarization]Onset: 100945-31-9839DydinupKqcrirmw of mouth; excluding dental (2 sources)Glossodynia; Translations: [Glossodynia]53-70-1648DriwjxasPlcvnbzbe of lipid metabolism (20 sources)Hyperlipidemia; Translations: [Other and unspecified hyperlipidemia] Onset: 03-06-2017 Resolved: 293086-82-6320HuloewqBkfgfcbfgueeae and diverticulitis (5 sources)Diverticulitis; Translations: [Diverticulitis of intestine, part unspecified, without perforation or abscess without bleeding]ChronicEsophageal disorders (20 sources)Dukes's esophagus; Translations: [Eosinophilic esophagitis]Onset: 03-03-2020 Resolved: 685656-88-2305NbtmxkhDqnozisax hypertension (20 sources)Essential hypertension; Translations: [Unspecified essential hypertension]Onset: 08-12-2021 Resolved: 631018-47-2857TimojyfZuimxxokkhsursns hemorrhage (1 source)Hemorrhage of anus and rectum; Translations: [Hemorrhage of anus and rectum]Onset: 92-62-9486OxxrraofTfgwexgggjqzr symptoms and ill-defined conditions (20 sources)Genuine stress incontinence; Translations: [Urge incontinence of urine]Onset: 01-20-2022 Resolved: 881061-81-7290GrssogyCxfyi valve disorders (20 sources)Mitral valve prolapse; Translations: [Nonrheumatic mitral (valve) prolapse]Onset: 523870-42-4407NtmbdmvAndxxki and fatigue (2 sources)Fatigue; Translations: [Chronic fatigue, unspecified]10-17-2024 ChronicOsteoporosis (20 sources)Senile osteoporosis; Translations: [Age-related osteoporosis without current pathological fracture]Onset: 303946-07-7611XfbuuhrKpiks aftercare (1 source)Treatment changed; Translations: [Other detention (current) drug therapy]58-48-5577NbeaauuxKvfyh connective tissue disease (6 sources)Trochanteric bursitis; Translations: [Trochanteric bursitis, left hip]91-11-9937BfafwbwdJublq connective tissue disease (2 sources)Pain in left foot; Translations: [Pain in left foot]02-06-2025 EpisodicOther diseases of bladder and urethra (7 sources)Urethral jezspltcr84-65-5065XdrpgxocFunfn diseases of kidney and ureters (2 sources)Renal impairment; Translations: [Disorder of kidney and ureter, unspecified]31-34-9807QytrttalYhwyy eye disorders (2 sources)Disorder of eyelid; Translations: [Other specified disorders of eyelid]80-28-2036QyaxfgklHmfjb gastrointestinal disorders (6 sources)Constipation; Translations: [Constipation, unspecified]05-14-2024 EpisodicOther gastrointestinal disorders (4 sources)Constipation, unspecified; Translations: [Constipation, unspecified] Onset: 08-16-2021 Resolved: 92-25-1531TpqdiydgPjjja lower respiratory disease (4 sources)Other forms of dyspnea; Translations: [Other forms of dyspnea]Onset: 25-01-0444WhtegxdhNwvxm non-traumatic joint disorders (4 sources)Derangement of right shoulder joint; Translations: [Other specific joint derangements of right shoulder, not elsewhere classified]67-44-7182Bdpibij Other non-traumatic joint disorders (20 sources)Pain in right shoulder; Translations: [Pain in joint, shoulder region]75-65-7707IkfhhvcsIoyuq non-traumatic joint disorders (6 sources)Hip pain; Translations: [Pain in left hip]67-12-7778BneytwqsOajpd non-traumatic joint disorders (16 sources)Arthralgia of the ankle and/or foot; Translations: [Pain in unspecified ankle and joints of unspecified foot]Onset: EpisodicOther screening for suspected conditions (not mental disorders or infectious disease) (20 sources)Encounter for screening mammogram for malignant neoplasm of breast; Translations: [Encounter for screening for malignant neoplasm of cervix]Onset: 04-10-2022 Resolved: 28-66-6348EyvtqznnHheickth codes; unclassified (1 source)Sleep apnea; Translations: [Sleep apnea, unspecified]ChronicResidual codes; unclassified (20 sources)History of arthroscopic procedure on shoulder; Translations: [Other specified postprocedural states]43-44-3738YfkfejzmVigclgjr codes; unclassified (20 sources)Postmenopausal state; Translations: [Asymptomatic menopausal state] Onset: 076551-98-1025EgqlkrurUettoakr codes; unclassified (4 sources)Family history of ischemic heart disease and other diseases of the circulatory system; Translations: [Family history of ischemic heart disease and other diseases of the circulatory system]Onset: 12-44-5225BggbmbynMjzsaofiv and history of mental health and substance abuse codes (7 sources)Tobacco use and exposure - vjyerlk21-97-2570UfcbaisVptuosrkbwcm (3 sources)CONTACT W/AND (SUSP) EXPOS COVID-19; Translations: [CONTACT W/AND (SUSP) EXPOS COVID-19]Onset: 90-64-6382Ggeegvozukcv (1 source)COUGH, UNSPECIFIED; Translations: [COUGH, UNSPECIFIED]Onset: 33-78-3287Xbmqtxx tract infections (20 sources)Chronic cystitis; Translations: [Other chronic cystitis without hematuria]Onset: 120851-77-8961OudyozyTwntfne tract infections (3 sources)Postinfective urethral stricture of female; Translations: [Postinfective urethral stricture, not elsewhere classified, female]Onset: 00-16-1558Mcfwwhpg Past or Other Problems Problem ClassificationProblemDateDocumented DateEpisodic/ChronicAbdominal pain (20 sources)Left upper quadrant pain; Translations: [Left upper quadrant pain] Onset: 01-10-2023 Resolved: 248661-40-1291HuapjdxnXffuv and unspecified renal failure (17 sources)Acute injury of kidney; Translations: [Acute kidney failure, unspecified]Onset: 204366-83-3476BasmrufoZyzufat dysrhythmias (20 sources)Palpitations; Translations: [Palpitations]Onset: 05-09-2023 Resolved: 48-15-5458KnprcwrxMwnaxgegkz associated with dizziness or vertigo (20 sources)Vertigo; Translations: [Dizziness and giddiness]Onset: 01-12-2023 Resolved: 228435-57-8257QfteouguIuwwhqjqzuqdp symptoms and ill-defined conditions (20 sources)Increased frequency of urination; Translations: [Microscopic hematuria]Onset: 11-29-2021 Resolved: 933511-69-3798UrdjqnegPjlrvicbmzz (20 sources)Hemorrhoids; Translations: [Unspecified hemorrhoids]Onset: 883585-84-0263XtvmxspnKxgrteyxxduiz and screening for infectious disease (1 source)Encounter for screening for human papillomavirus (HPV); Translations: [ENC SCREENING HUMAN PAPILLOMAVIRUS]Onset: 58-84-6496TjjwnfdcWerlwlrkcmp deficiencies (20 sources)Vitamin D deficiency; Translations: [Vitamin D deficiency, unspecified]Onset: 10-07-2016 Resolved: 400465-41-7666UvjbybhSrxuvmywbnuibu (20 sources)Arthritis of right hip; Translations: [Unilateral primary osteoarthritis, right hip]Onset: 04-19-2022 Resolved: 332948-33-5401XatpcqgZkjyv aftercare (1 source)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; Translations: [INSPECTOR 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 USE OF ASPIRIN]Onset: 00-87-3603YdoaplnzAwsnv aftercare (3 sources)Other detention (current) drug therapy; Translations: [OTH INSPECTOR RAG SORTING CURRENT DRUG THERAPY]Onset: 40-22-7066JwswxlaqEawbn bone disease and musculoskeletal deformities (1 source)Other specified disorders of bone density and structure, right thigh; Translations: [OTH D/O BONE DEN STRUCT RT THIGH]Onset: 34-84-4147LsbjrhelGeujk bone disease and musculoskeletal deformities (20 sources)Bone cyst of left ankle; Translations: [Other cyst of bone, left ankle and foot]Onset: 07-27-2023 Resolved: 047759-01-9258EabesvifDhddl circulatory disease (4 sources)Hemorrhage, not elsewhere classified; Translations: [HEMORRHAGE NOT ELSEWHERE CLASSIFIED]Onset: 49-70-6681TokxpevzQxyzs connective tissue disease (20 sources)Dupuytren's contracture; Translations: [Palmar fascial fibromatosis [Dupuytren]]Onset: 293540-31-3945ScqvhcrpLcfxy female genital disorders (6 sources)Pain in female pelvis; Translations: [Pelvic pain in female]Onset: 04-24-2024 Resolved: 939031-71-1442ZueatnagHpojc gastrointestinal disorders (20 sources)Dysphagia; Translations: [Dysphagia, unspecified]Onset: 01-10-2023 Resolved: 676817-27-5092ZzjmaaloHyiwt gastrointestinal disorders (20 sources)Heartburn; Translations: [Heartburn]Onset: 01-10-2023 Resolved: 544590-21-4363FkcvytulOyuxv infections; including parasitic (20 sources)Urethral stricture due to infection; Translations: [Urethral disorders in diseases classified elsewhere]Onset: 01-10-2023 Resolved: 261317-08-1249KhobfntzUjxcs lower respiratory disease (18 sources)Dyspnea on exertion; Translations: [Other forms of dyspnea]Onset: 588320-84-4743QhgqaawrWvelk nervous system disorders (20 sources)Impairment of balance; Translations: [Other abnormalities of gait and mobility]Onset: 01-10-2023 Resolved: 270235-55-6300BiknxipaSgyij nutritional; endocrine; and metabolic disorders (20 sources)Overweight in adulthood with body mass index of 25 or more but less than 30; Translations: [Overweight]Onset: 05-09-2023 Resolved: 096768-97-7140RjytiyzmPagwb nutritional; endocrine; and metabolic disorders (2 sources)Body mass index (BMI) 26.0-26.9, adult; Translations: [Body mass index (BMI) 26.0-26.9, adult]Onset: 02-87-0283YzleltmnTnldgidt codes; unclassified (1 source)Asymptomatic menopausal state; Translations: [ASYMPTOMATIC MENOPAUSAL STATE]Onset: 11-37-0025WcdeoadaEwumppot codes; unclassified (1 source)Family history of malignant neoplasm of breast; Translations: [FAMILY HX MALIG NEOPLASM OF BREAST]Onset: 69-32-9342WrpbvcryRxwvhamy codes; unclassified (1 source)Family history of malignant neoplasm of other organs or systems; Translations: [FAM HX MALIG NEOPLASM OTH ORGN/SYS]Onset: 97-95-7527Myedahhq Residual codes; unclassified (18 sources)Family history of cardiac disorder; Translations: [Family history of ischemic heart disease and other diseases of the circulatory system]Onset: 597030-68-6462RecvnwfwIpakhwfyg and history of mental health and substance abuse codes (20 sources)Ex-smoker; Translations: [Personal history of tobacco use]Onset: 01-10-2023 Resolved: 756023-20-3904DavhwvkeHvhhendtcis; intervertebral disc disorders; other back problems (20 sources)Neck pain; Translations: [Cervicalgia]Onset: 07-31-2024 Resolved: 971367-99-0508QfyzlgjbGpxhqmejpfws (1 source)CONTACT W/AND (SUSP) EXPOS COVID-19; Translations: [CONTACT W/AND (SUSP) EXPOS COVID-19]Onset: 70-46-2416Pglzstvssgng (8 sources)Onset: 05-10-2023 Resolved: Results Test NameValueInterpretationReference RangeFacilityXR FOOT 3+ VIEWS LEFTon 28-41-4170FU FOOT 3+ VIEWS LEFTEXAMINATION/TECHNIQUE: XR FOOT 3+ VIEWS LEFT HISTORY: Left foot pain. COMPARISON: None RESULT: No acute fracture. No dislocation. Mild degenerative changes first MTP joint with small osteophytes. Hallux valgus. Mild degenerative changes in the midfoot. Small plantar and posterior calcaneal enthesophytes. Mild soft tissue edema. IMPRESSION: No acute osseous findings. Degenerative changes. ELECTRONICALLY SIGNED BY: Alexy Saldana MDNormalNot AvailableXR Foot - left 3 Viewson 02-06-2025 No acute osseous findings. Degenerative changes. ELECTRONICALLY SIGNED BY: Alexy Saldana MDIMAGINGEXAMINATION/TECHNIQUE: XR FOOT 3+ VIEWS LEFT HISTORY: Left foot pain. COMPARISON: None RESULT: No acute fracture. No dislocation. Mild degenerative changes first MTP joint with small osteophytes. Hallux valgus. Mild degenerative changes in the midfoot. Small plantar and posterior calcaneal enthesophytes. Mild soft tissue edema. Alexy Christianson MD - 02/06/2025 EXAMINATION/TECHNIQUE: XR FOOT 3+ VIEWS LEFT HISTORY: Left foot pain. COMPARISON: None RESULT: No acute fracture. No dislocation. Mild degenerative changes first MTP joint with small osteophytes. Hallux valgus. Mild degenerative changes in the midfoot. Small plantar and posterior calcaneal enthesophytes. Mild soft tissue edema. IMPRESSION: No acute osseous findings. Degenerative changes. ELECTRONICALLY SIGNED BY: Alexy Saldana MD [facility] HealthcareRadiology Study observation (narrative)[facility] HealthcareXR Foot - left 3 ViewsOrdered By: Alexy Saldana on 88-83-7135[facility] Work Phone: nm Heart Perfusion W stress and W radionuclide Anna Marie 49-43-3807Zcxass exercise Myoview cardiac perfusion stress test. No evidence of ischemia or myocardial infarction by perfusion imaging. Normal left ventricular systolic function, ejection fraction 66%. No exercise provoked significant ischemic ECG changes or chest pain symptoms. . Signed by: Denny Aponte 12/12/2024 5:28 PM Dictation workstation: [id number] MMODALInterpreted By: Denny Aponte, and Bessie Kim STUDY: MYOCARDIAL PERFUSION STRESS TEST WITH EXERCISE Performing facility: [facility], [address] [place] [address], [address], [address] Provider: Lacey Damico MD, [facility] PCP: Dr. Varun Zamora Supervising provider: Inocente Chaney MD INDICATION: Signs/Symptoms:claros, palp, pvc, family history of heart disease. ,R00.2 Palpitations,I49.3 Ventricular premature depolarization,R06.09 Other forms of dyspnea,E78.2 Mixed hyperlipidemia,Z82.49 Family history of ischemic heart disease and other diseases of the circulatory system HISTORY: Gender: F; Age: 69 y/o ; Height: HT 157.5 cm cm; Weight: WT 65.318 kg kg. High Cholesterol; Diabetes; Family HX CAD; Palpitations; SOB; Arrhythmias;PVC Quit smoking >45 years ago. COMPARISON: Previous nuclear testing completed at [facility]. ACCESSION NUMBER(S): [id number] ORDERING CLINICIAN: LACEY DAMICO TECHNIQUE: ONE DAY protocol. Stress injection: Date:12-12-24, 33.8 mCi of Myoview IV at peak exercise. Rest injection: Date: 12-12-24, 10.7 mCi of Myoview IV at rest. Imaging was performed by gated tomographic technique. STRESS TEST DATA: Resting heart rate was 63 BPM. Resting blood pressure was 128/78 mmHg. The patient exercised using a Hunter exercise protocol. 09:15 minutes exercised. 93 % of MPHR achieved for age. 10.50 METS achieved. Maximum heart rate was 143 BPM. Maximum blood pressure was 180/68 mmHg. DTS 9. TEST TERMINATED DUE TO: Fatigue FINDINGS: STRESS TEST RESULTS: Resting electrocardiogram revealed normal sinus rhythm. The patient had no significant ECG changes with maximal stress. The patient did not have chest pains/symptoms during the procedure. There was a normal recovery phase. There were no significant dysrhythmias. IMAGING RESULTS: Image quality was good. Rest and stress tomographic images were reviewed and revealed normal perfusion without evidence of ischemia, myocardial infarction, or left ventricular dilatation with stress. Overall left ventricular systolic function appeared to be normal without regional wall motion abnormalities. LV ejection fraction was 66 %. TID is 0.97 and is normal. There was no evidence of attenuation artifact. MMODALDenny Aponte MD - 12/12/2024 Interpreted By: Denny Aponte and Giannuzzi Michael STUDY: MYOCARDIAL PERFUSION STRESS TEST WITH EXERCISE Performing facility: [facility], [address] [place] [address], [address], [address] Provider: Lacey Damico MD, [facility] PCP: Dr. Varun Zamora Supervising provider: Inocente Chaney MD INDICATION: Signs/Symptoms:claros, palp, pvc, family history of heart disease. ,R00.2 Palpitations,I49.3 Ventricular premature depolarization,R06.09 Other forms of dyspnea,E78.2 Mixed hyperlipidemia,Z82.49 Family history of ischemic heart disease and other diseases of the circulatory system HISTORY: Gender: F; Age: 69 y/o ; Height: HT 157.5 cm cm; Weight: WT 65.318 kg kg. High Cholesterol; Diabetes; Family HX CAD; Palpitations; SOB; Arrhythmias;PVC Quit smoking >45 years ago. COMPARISON: Previous nuclear testing completed at [facility]. ACCESSION NUMBER(S): [id number] ORDERING CLINICIAN: LACEY DAMICO TECHNIQUE: ONE DAY protocol. Stress injection: Date:12-12-24, 33.8 mCi of Myoview IV at peak exercise. Rest injection: Date: 12-12-24, 10.7 mCi of Myoview IV at rest. Imaging was performed by gated tomographic technique. STRESS TEST DATA: Resting heart rate was 63 BPM. Resting blood pressure was 128/78 mmHg. The patient exercised using a Hunter exercise protocol. 09:15 minutes exercised. 93 % of MPHR achieved for age. 10.50 METS achieved. Maximum heart rate was 143 BPM. Maximum blood pressure was 180/68 mmHg. DTS 9. TEST TERMINATED DUE TO: Fatigue FINDINGS: STRESS TEST RESULTS: Resting electrocardiogram revealed normal sinus rhythm. The patient had no significant ECG changes with maximal stress. The patient did not have chest pains/symptoms during the procedure. There was a normal recovery phase. There were no significant dysrhythmias. IMAGING RESULTS: Image quality was good. Rest and stress tomographic images were reviewed and revealed normal perfusion without evidence of ischemia, myocardial infarction, or left ventricular dilatation with stress. Overall left ventricular systolic function appeared to be normal without regional wall motion abnormalities. LV ejection fraction was 66 %. TID is 0.97 and is normal. There was no evidence of attenuation artifact. IMPRESSION: Normal exercise Myoview cardiac perfusion stress test. No evidence of ischemia or myocardial infarction by perfusion imaging. Normal left ventricular systolic function, ejection fraction 66%. No exercise provoked significant ischemic ECG changes or chest pain symptoms. . Signed by: Denny Aponte 12/12/2024 5:28 PM Dictation workstation: [id number] [facility] Work Phone: Radiology Study observation (narrative)[facility] Work Phone: NM Heart Perfusion W stress and W radionuclide IV Ordered By: Denny Aponte on 87-93-9980AnhelyifixTriHealth [facility] Work Phone: NUCLEAR STRESS TESTon 28-20-4320RVMBUKL STRESS TEST Interpreted By: Denny Aponte and Giannuzzi Michael STUDY: MYOCARDIAL PERFUSION STRESS TEST WITH EXERCISE Performing facility: [facility], [address] [place] [address], [address], [address] Provider: Lacey Damico MD, [facility] PCP: Dr. Varun Zamora Supervising provider: Inocente Chaney MD INDICATION: Signs/Symptoms:claros, palp, pvc, family history of heart disease. ,R00.2 Palpitations,I49.3 Ventricular premature depolarization,R06.09 Other forms of dyspnea,E78.2 Mixed hyperlipidemia,Z82.49 Family history of ischemic heart disease and other diseases of the circulatory system HISTORY: Gender: F; Age: 69 y/o ; Height: HT 157.5 cm cm; Weight: WT 65.318 kg kg. High Cholesterol; Diabetes; Family HX CAD; Palpitations; SOB; Arrhythmias;PVC Quit smoking >45 years ago. COMPARISON: Previous nuclear testing completed [id number] at [facility]. ACCESSION NUMBER(S): [id number] ORDERING CLINICIAN: LACEY DAMICO TECHNIQUE: ONE DAY protocol. Stress injection: Date:12-12-24, 33.8 mCi of Myoview IV at peak exercise. Rest injection: Date: 12-12-24, 10.7 mCi of Myoview IV at rest. Imaging was performed by gated tomographic technique. STRESS TEST DATA: Resting heart rate was 63 BPM. Resting blood pressure was 128/78 mmHg. The patient exercised using a Hunter exercise protocol. 09:15 minutes exercised. 93 % of MPHR achieved for age. 10.50 METS achieved. Maximum heart rate was 143 BPM. Maximum blood pressure was 180/68 mmHg. DTS 9. TEST TERMINATED DUE TO: Fatigue FINDINGS: STRESS TEST RESULTS: Resting electrocardiogram revealed normal sinus rhythm. The patient had no significant ECG changes with maximal stress. The patient did not have chest pains/symptoms during the procedure. There was a normal recovery phase. There were no significant dysrhythmias. IMAGING RESULTS: Image quality was good. Rest and stress tomographic images were reviewed and revealed normal perfusion without evidence of ischemia, myocardial infarction, or left ventricular dilatation with stress. Overall left ventricular systolic function appeared to be normal without regional wall motion abnormalities. LV ejection fraction was 66 %. TID is 0.97 and is normal. There was no evidence of attenuation artifact. IMPRESSION: Normal exercise Myoview cardiac perfusion stress test. No evidence of ischemia or myocardial infarction by perfusion imaging. Normal left ventricular systolic function, ejection fraction 66%. No exercise provoked significant ischemic ECG changes or chest pain symptoms. . Signed by: Denny Aponte 12/12/2024 5:28 PM Dictation workstation: [id number] [facility] Comment on above:Order Comment: May switch to LexiNUCLEAR STRESS TEST EXERCISE (CARD)on [id number] switch to Zohreh Source Facility: [facility] Interpreted By: Denny Aponte and Giannuzzi Michael STUDY: MYOCARDIAL PERFUSION STRESS TEST WITH EXERCISE Performing facility: [facility], [address] [place] [address], [address], [place] [address] [facility] Provider: Lacey Damico MD, [facility] PCP: Dr. Varun Zamora Supervising provider: Inocente Chaney MD INDICATION: Signs/Symptoms:claros, palp, pvc, family history of heart disease. ,R00.2 Palpitations,I49.3 Ventricular premature depolarization,R06.09 Other forms of dyspnea,E78.2 Mixed hyperlipidemia,Z82.49 Family history of ischemic heart disease and other diseases of the circulatory system HISTORY: Gender: F; Age: 69 y/o ; Height: HT 157.5 cm cm; Weight: WT 65.318 kg kg. High Cholesterol; Diabetes; Family HX CAD; Palpitations; SOB; Arrhythmias;PVC Quit smoking >45 years ago. COMPARISON: Previous nuclear testing completed [id number] at [facility]. ACCESSION NUMBER(S): [id number] ORDERING CLINICIAN: LACEY DAMICO TECHNIQUE: ONE DAY protocol. Stress injection: Date:12-12-24, 33.8 mCi of Myoview IV at peak exercise. Rest injection: Date: 12-12-24, 10.7 mCi of Myoview IV at rest. Imaging was performed by gated tomographic technique. STRESS TEST DATA: Resting heart rate was 63 BPM. Resting blood pressure was 128/78 mmHg. The patient exercised using a Hunter exercise protocol. 09:15 minutes exercised. 93 % of MPHR achieved for age. 10.50 METS achieved. Maximum heart rate was 143 BPM. Maximum blood pressure was 180/68 mmHg. DTS 9. TEST TERMINATED DUE TO: Fatigue FINDINGS: STRESS TEST RESULTS: Resting electrocardiogram revealed normal sinus rhythm. The patient had no significant ECG changes with maximal stress. The patient did not have chest pains/symptoms during the procedure. There was a normal recovery phase. There were no significant dysrhythmias. IMAGING RESULTS: Image quality was good. Rest and stress tomographic images were reviewed and revealed normal perfusion without evidence of ischemia, myocardial infarction, or left ventricular dilatation with stress. Overall left ventricular systolic function appeared to be normal without regional wall motion abnormalities. LV ejection fraction was 66 %. TID is 0.97 and is normal. There was no evidence of attenuation artifact. IMPRESSION: Normal exercise Myoview cardiac perfusion stress test. No evidence of ischemia or myocardial infarction by perfusion imaging. Normal left ventricular systolic function, ejection fraction 66%. No exercise provoked significant ischemic ECG changes or chest pain symptoms. . Signed by: Denny Aponte 12/12/2024 5:28 PM Dictation workstation: [id number], Radiologist, - 12/12/2024 May switch to Zohreh Source Facility: [facility] Interpreted By: Denny Aponte and Giannuzzi Michael STUDY: MYOCARDIAL PERFUSION STRESS TEST WITH EXERCISE Performing facility: [facility], [address], [address], [place], [place] [address] Provider: Lacey Damico MD, FACC PCP: Dr. Varun Zamora Supervising provider: Inocente Chaney MD INDICATION: Signs/Symptoms:claros, palp, pvc, family history of heart disease. ,R00.2 Palpitations,I49.3 Ventricular premature depolarization,R06.09 Other forms of dyspnea,E78.2 Mixed hyperlipidemia,Z82.49 Family history of ischemic heart disease and other diseases of the circulatory system HISTORY: Gender: F; Age: 69 y/o ; Height: HT 157.5 cm cm; Weight: WT 65.318 kg kg. High Cholesterol; Diabetes; Family HX CAD; Palpitations; SOB; Arrhythmias;PVC Quit smoking >45 years ago. COMPARISON: Previous nuclear testing completed [id number] at [facility]. ACCESSION NUMBER(S): [id number] ORDERING CLINICIAN: LACEY DAMICO TECHNIQUE: ONE DAY protocol. Stress injection: Date:12-12-24, 33.8 mCi of Myoview IV at peak exercise. Rest injection: Date: 12-12-24, 10.7 mCi of Myoview IV at rest. Imaging was performed by gated tomographic technique. STRESS TEST DATA: Resting heart rate was 63 BPM. Resting blood pressure was 128/78 mmHg. The patient exercised using a Hunter exercise protocol. 09:15 minutes exercised. 93 % of MPHR achieved for age. 10.50 METS achieved. Maximum heart rate was 143 BPM. Maximum blood pressure was 180/68 mmHg. DTS 9. TEST TERMINATED DUE TO: Fatigue FINDINGS: STRESS TEST RESULTS: Resting electrocardiogram revealed normal sinus rhythm. The patient had no significant ECG changes with maximal stress. The patient did not have chest pains/symptoms during the procedure. There was a normal recovery phase. There were no significant dysrhythmias. IMAGING RESULTS: Image quality was good. Rest and stress tomographic images were reviewed and revealed normal perfusion without evidence of ischemia, myocardial infarction, or left ventricular dilatation with stress. Overall left ventricular systolic function appeared to be normal without regional wall motion abnormalities. LV ejection fraction was 66 %. TID is 0.97 and is normal. There was no evidence of attenuation artifact. IMPRESSION: Normal exercise Myoview cardiac perfusion stress test. No evidence of ischemia or myocardial infarction by perfusion imaging. Normal left ventricular systolic function, ejection fraction 66%. No exercise provoked significant ischemic ECG changes or chest pain symptoms. . Signed by: Denny Aponte 12/12/2024 5:28 PM Dictation workstation: [id number] [facility] InstituteRadiology Study observation (narrative)[facility] STRESS TEST EXERCISE (CARD)Ordered By: Radiologist Radiology on [id number] [employer] Work Phone: us RENAL COMPLETEon [id number] RENAL COMPLETETITLE OF EXAM: US RENAL COMPLETE REASON FOR EXAM: Elevated creatinine, nocturia, low back pain TECHNIQUE: Grayscale and color ultrasound evaluation of the abdomen. COMPARISON: None. FINDINGS: Measurements: Right kidney: 8.6 x 4.6 x 4.8 cm Left: 9.7 x 6.4 x 6.4 cm Urinary bladder prevoid 7.4 x 7.9 x 5.4 cm (volume 164 mL) and post void 3.1 x 4.9 x 2.1 cm (eoxvcc10.9 mL) Right Kidney: The parenchymal echogenicity and thickness appear within normal range. No focal lesion is demonstrated. No hydronephrosis. Left Kidney: The parenchymal echogenicity and thickness appear within normal range. No focal lesionis demonstrated. No hydronephrosis. Urinary bladder: No focal or diffuse wall thickening. Bilateral ureteral jets visualized. Post voidresidual approximately 10%. No appreciable ascites. IMPRESSION: The evaluated urologic structures are sonographically normal. DICTATED ON: 11/25/2024 11:42 AM This report has been electronically signed and approved by the interpreting radiologist.NormalNot Qdiynsywz79-dmzyeypnfjhwlq D3 [Mass/Vol]on - hydroxyvitamin D [Mass/Vol]31 ng/mL30.0 - 100.0 ng/mLNSAINT FRANCIS [facility] HealthcareComment on above:Vitamin D deficiency has been defined by the [place] of Medicine and an Endocrine Society practice guideline as a level of serum 25-OH vitamin D less than 20 ng/mL (1,2). The Endocrine Society went on to further define vitamin D insufficiency as a level between 21 and 29 ng/mL (2). 1. IOM ([place] of [employer]). 2010. Dietary reference intakes for calcium and D. [place]: The National Academies Press. 2. Zane MF, Gena MENDOZA, Boom ADDISON, et al. Evaluation, treatment, and prevention of vitamin D deficiency: an Endocrine Society clinical practice guideline. JCEM. 2010; 96(7):1911-30. Basic metabolic 1998 panelon 86-73-6675Rmcqusu [Mass/Vol]10 mg/dL8.7 - 10.3 mg/dLNOMS HealthcareChloride [Moles/Vol]99 mmol/L96 - 106 mmol/LNOMS Healthcare CO2 [Moles/Vol]28 mmol/L20 - 29 mmol/LNOMS HealthcareCreatinine [Mass/Vol]1.04 mg/dLHigh0.57 - 1.00 mg/dLNOLA HealthcareGFR/1.73 sq M.predicted among non- blacks MDRD (S/P/Bld) [Vol rate/Area]59 mL/min/{1.73_m2}Low59 - PINF mL/min/1.73 [facility] HealthcareGlucose [Mass/Vol]89 mg/dL70 - 99 mg/dLThe Rehabilitation Institute Interpretation and review of laboratory resultsAbnormalNOLA HealthcarePotassium [Moles/Vol]4.5 mmol/L3.5 - 5.2 mmol/LNOMS HealthcareSodium [Moles/Vol]140 mmol/L 134 - 144 mmol/LNOMS HealthcareUrea nitrogen [Mass/Vol]22 mg/dL8 - 27 mg/dLNOBarnes-Jewish Saint Peters HospitalUrea nitrogen/Creatinine [Mass ratio]21 mg/mg12 - 28NOBarnes-Jewish [facility] Hospital Laboratory - Chemistry and Chemistry - challengeon 22-74-9239Oldsjafxq (Vitamin B12) [Mass/Vol]539 pg/mL232 - 1245 pg/mLNOMS HealthcareFerritin [Mass/Vol]138 ng/mL15 - 150 ng/mLNOMS HealthcareFolate [Mass/Vol]17.7 ng/mL3.0 - PINF ng/mL [facility] HealthcareComment on above:A serum folate concentration of less than 3.1 ng/mL is considered to represent clinical deficiency. Iron [Mass/Vol]102 ug/dL27 - 139 ug/dLNOMS HealthcareIron binding capacity [Mass/Vol]288 ug/dL250 - 450 ug/dLNOMS HealthcareIron binding capacity.unsaturated [Mass/Vol]186 ug/dL118 - 369 ug/dLNOMS HealthcareIron saturation [Mass fraction]35 %15 - 55 %NOMS HealthcareMagnesium [Mass/Vol]2.2 mg/dL1.6 - 2.3 mg/dLNOMS HealthcareTransferrin [Mass/Vol]230 mg/dL192 - 364 mg/dLNOLA HealthcareNo Panel Informationon 03-26-9795Hiswazxvz at: - [facility] [address] [id number] Evaluation Manager: Rashawn Whitman PhD, Phone: [phone] Langone Hospital – [facility] Pathology Request for Lab Corpon 35-95-0008Eqdrqpagl Request for Lab CorpNormal The [facility] Physician GroupComment on above:Order Comment: PATHOLOGY GI SPECIMENResult Comment: See report. Scanned copy available in EMR. PERFORMED BY: [place] [address] PATHOLOGIST BENZENE OPERATOR JONATAN REED M.D.Performed By: #### PATH TO [facility] #### [place] [address] USAXR DEXA AXIAL SKELETONon 94-13-7887[place] [address] XRay Report Signed Patient: IVONNE ECHEVARRIA MR#: [id number] : 1955 Acct:[id number] Age/Sex: 68 / F ADM Date: 05/19/24 Loc: MAMMO Attending Dr: Tyler Ervin D.O. Ordering Physician: Tyler Ervin D.O. Date of Service: 05/19/24 Procedure(s): XR DEXA axial skeleton Accession Number(s): [id number] cc: Tyler Ervin D.O.; Physician,Non-Staff MBlake [facility] [place] [id number] Patient Name: IVONNE ECHEVARRIA MRN: [id number] date: 1955 Sex: F Assigned Patient Location: [facility] Current Patient Location: Accession/Order Number: [id number] Exam Date: 05/19/2024 07:45 Report Date: 05/21/2024 07:18 At the request of: TYLER ERVIN Procedure: XR DEXA axial skeleton EXAMINATION: XR DEXA axial skeleton, 05/19/2024 7:45 AM EST HISTORY: Osteoporosis screening COMPARISON: 2021, 2019, 2012 TECHNIQUE: Dual-energy X-ray absorptiometry (DEXA) bone density study performed for the axial skeleton. FINDINGS: Bone mineral density AP spine L2-L4 measures 1.247 g/sq cm. T score 0.4. Normal Lowest bone mineral density right femoral neck measures 0.757 g/sq cm. T score 2.0. Osteopenia XR/XR DEXA axial skeleton IMPRESSION: Osteopenia. Moderate fracture risk Pharmacologic treatment recommendations * No uniform recommendation applies to all patients. Management plans must be individualized. * Consider initiating pharmacologic treatment in postmenopausal women and men >= 50 years of age who have the following: Primary fracture prevention: * T-score <= - 2.5 at the femoral neck, total hip, lumbar spine, 33% radius (some uncertainty with existing data) by DXA. * Low bone mass (osteopenia: T-score between - 1.0 and - 2.5) at the femoral neck or total hip by DXA with a 10-year hip fracture risk >= 3% or a 10-year major osteoporosis-related fracture risk >= 20% (i.e., clinical vertebral, hip, forearm, or proximal humerus) based on the US-adapted FRAXregistered model. Secondary fracture prevention: * Fracture of the hip or vertebra regardless of BMD [4, 5]. * Fracture of proximal humerus, pelvis, or distal forearm in persons with low bone mass (osteopenia: T-score between - 1.0 and - 2.5). The decision to treat should be individualized in persons with a fracture of the proximal humerus, pelvis, or distal forearm who do not have osteopenia or low BMD [12, 13]. Beatriz MS, Becky SL, Robby KL, Minerva EM, Teresa KG, Singer CASPER, Musa ES. The clinician's guide to prevention and treatment of osteoporosis. Osteoporos Int. 2021;33(10):3713-2502. doi: 10.1007/w84293-075-36231-a. Epub 2021Nov 03. Erratum in: Osteoporos Int. 2021Feb 02;: PMID: 52825728; PMCID: BXA7029766. Electronically authenticated by: GALINA BECERRIL Date: 05/21/2024 07:18 Dictated By: Galina Becerril M.D. Signed By: 05/21/24719 DD/ 7 TD/TT: Rewards Consultant:TBHRadiology, Radiologist, - 05/21/2024 [place] [address] XRay Report Signed Patient: IVONNE ECHEVARRIA MR#: [id number] : 1955 Acct:[id number] Age/Sex: 68 / F ADM Date: 05/19/24 Loc: MAMMO Attending Dr: Tyler Ervin D.O. Ordering Physician: Tyler Ervin D.O. Date of Service: 05/19/24 Procedure(s): XR DEXA axial skeleton Accession Number(s): [id number] cc: Tyler Ervin D.O.; Physician,Non-Staff Asa [facility] [place] [id number] Patient Name: IVONNE ECHEVARRIA MRN: [id number] date: 1955 Sex: F Assigned Patient Location: [facility] Current Patient Location: Accession/Order Number: [id number] Exam Date: 05/19/2024 07:45 Report Date: 05/21/2024 07:18 At the request of: TYLER ERVIN Procedure: XR DEXA axial skeleton EXAMINATION: XR DEXA axial skeleton, 05/19/2024 7:45 AM EST HISTORY: Osteoporosis screening COMPARISON: 2021, 2019, 2012 TECHNIQUE: Dual-energy X-ray absorptiometry (DEXA) bone density study performed for the axial skeleton. FINDINGS: Bone mineral density AP spine L2-L4 measures 1.247 g/sq cm. T score 0.4. Normal Lowest bone mineral density right femoral neck measures 0.757 g/sq cm. T score 2.0. Osteopenia XR/XR DEXA axial skeleton IMPRESSION: Osteopenia. Moderate fracture risk Pharmacologic treatment recommendations * No uniform recommendation applies to all patients. Management plans must be individualized. * Consider initiating pharmacologic treatment in postmenopausal women and men >= 50 years of age who have the following: Primary fracture prevention: * T-score <= - 2.5 at the femoral neck, total hip, lumbar spine, 33% radius (some uncertainty with existing data) by DXA. * Low bone mass (osteopenia: T-score between - 1.0 and - 2.5) at the femoral neck or total hip by DXA with a 10-year hip fracture risk >= 3% or a 10-year major osteoporosis-related fracture risk >= 20% (i.e., clinical vertebral, hip, forearm, or proximal humerus) based on the US-adapted FRAXregistered model. Secondary fracture prevention: * Fracture of the hip or vertebra regardless of BMD [4, 5]. * Fracture of proximal humerus, pelvis, or distal forearm in persons with low bone mass (osteopenia: T-score between - 1.0 and - 2.5). The decision to treat should be individualized in persons with a fracture of the proximal humerus, pelvis, or distal forearm who do not have osteopenia or low BMD [12, 13]. Beatriz MS, Becky SL, Robby KL, Minerva EM, Teresa KG, AJ, Musa ES. The clinician's guide to prevention and treatment of osteoporosis. Osteoporos Int. 2021;33(10):0664-3554. doi: 10.1007/i34808-664-11086-c. Epub 2021Nov 03. Erratum in: Osteoporos Int. 2021Feb 02;: PMID: 64596988; PMCID: CNF6615251. Electronically authenticated by: GALINA BECERRIL Date: 05/21/2024 07:18 Dictated By: Galina Becerril M.D. Signed By: 05/21/24719 DD/ 7 TD/TT: Rewards Consultant: NOMS HealthcareRadiology Study observation (narrative)[facility] HealthcareXR DEXA AXIAL SKELETONOrdered By: Radiologist Radiology on 28-92-6121PSBR Healthcare Work Phone: mm TOMOSYNTHESIS SCREENING BIon 11-70-9529[address] [address] Mammography Report Signed Patient: IVONNE ECHEVARRIA MR#: [id number] : 1955 Acct:[id number] Age/Sex: 68 / F ADM Date: 05/19/24 Loc: MAMMO Attending Dr: Tyler Ervin D.O. Ordering Physician: Tyler Ervin D.O. Results: Date of Service: 05/19/24 Follow Up: Procedure(s): MM tomosynthesis screening BI Accession Number(s): [id number] cc: Tyler Ervin D.O.; Physician,Non-Staff Asa Patient Name: IVONNE ECHEVARRIA MR#: [id number] : 1955 Exam Date: 05/19/2024 Ordering Doctor: [...] rectal cancer at age 71. LOCATION: [facility] BREAST COMPOSITION: The breasts are extremely dense, [...] BIOPSIED. Dictated by: Galina Becerril MD on 05/19/2024 at 09:03 Approved by: Galina Becerril MD on 05/19/2024 at 09:04 Dictated By: Galina Becerril M.D. Signed By: 05/19/24904 DD/ 3 TD/TT: Rewards Consultant:TBHRadiology, Radiologist, - 05/19/2024 [place] [address] Mammography Report Signed Patient: IVONNE ECHEVARRIA MR#: [id number] : 1955 Acct:[id number] Age/Sex: 68 / F ADM Date: 05/19/24 Loc: MAMMO Attending Dr: Tyler Ervin D.O. Ordering Physician: Tyler Ervin D.O. Results: Date of Service: 05/19/24 Follow Up: Procedure(s): MM tomosynthesis screening BI Accession Number(s): [id number] cc: Tyler Ervin D.O.; Physician,Non-Staff Asa Patient Name: IVONNE ECHEVARRIA MR#: [id number] : 1955 Exam Date: 05/19/2024 Ordering Doctor: [...] rectal cancer at age 71. LOCATION: [facility] BREAST COMPOSITION: The breasts are extremely dense, [...] BIOPSIED. Dictated by: Galina Becerril MD on 05/19/2024 at 09:03 Approved by: Galina Becerril MD on 05/19/2024 at 09:04 Dictated By: Galina Becerril M.D. Signed By: 05/19/24904 DD/ 3 TD/TT: Rewards Consultant: THAD HealthcareRadiology Study observation (narrative)[facility] TOMOSYNTHESIS SCREENING BIOrdered By: Radiologist Radiology on 25-44-8052QQUK [employer] Work Phone: US PELVIS W/ TRANSVAGINALon [phone], [place] [address] Ultrasound Report Signed Patient: IVONNE ECHEVARRIA MR#: [id number] : 1955 Acct:[id number] Age/Sex: 68 / F ADM Date: 05/08/24 Loc: [facility] Attending Dr: Tyler Ervin D.O. Ordering Physician: Tyler Ervin D.O. Date of Service: 05/08/24 Procedure(s): US pelvis w/ transvaginal Accession Number(s): [id number] cc: Tyler Ervin D.O.; Physician,Non-Staff M.[place] [facility] [place] [id number] Patient Name: IVONNE ECHEVARRIA MRN: [id number] date: 1955 Sex: F Assigned Patient Location: [facility] Current Patient Location: Accession/Order Number: [id number] Exam Date: 05/08/2024 11:06 Report Date: 05/09/2024 13:24 At the request of: TYLER ERVIN Procedure: US pelvis w/ transvaginal EXAMINATION: US pelvis w/ transvaginal HISTORY: PELVIC PAIN COMPARISON: No relevant comparison available. FINDINGS: Transabdominal and transvaginal images The liver is normal in size, contour and echotexture measuring 5.8 x 2.3 x 4.2 cm. Mildly heterogeneous echotexture with no focal mass. The uterus is anteverted, anteflexed The endometrium measures 3 mm, normal The ovaries are not visualized No free fluid US/US pelvis w/ transvaginal IMPRESSION: No acute abnormality Electronically authenticated by: GALINA BECERRIL Date: 05/09/2024 13:24 Dictated By: Galina Becerril M.D. Signed By: 05/09/241325 DD/ 23 TD/TT: Rewards Consultant:OMERadiologjohn Radiologist, - 05/09/2024 [facility] [place] [id number] Ultrasound Report Signed Patient: IVONNE ECHEVARRIA MR#: [id number] : 1955 Acct:[id number] Age/Sex: 68 / F ADM Date: 05/08/24 Loc: [facility] Attending Dr: Tyler Ervin D.O. Ordering Physician: Tyler Ervin D.O. Date of Service: 05/08/24 Procedure(s): US pelvis w/ transvaginal Accession Number(s): [id number] cc: Tyler Ervin D.O.; Physician,Non-Staff Asa [facility] [place] [id number] Patient Name: IVONNE ECHEVARRIA MRN: [id number] date: 1955 Sex: F Assigned Patient Location: [facility] Current Patient Location: Accession/Order Number: [id number] Exam Date: 05/08/2024 11:06 Report Date: 05/09/2024 13:24 At the request of: TYLER ERVIN Procedure: US pelvis w/ transvaginal EXAMINATION: US pelvis w/ transvaginal HISTORY: PELVIC PAIN COMPARISON: No relevant comparison available. FINDINGS: Transabdominal and transvaginal images The liver is normal in size, contour and echotexture measuring 5.8 x 2.3 x 4.2 cm. Mildly heterogeneous echotexture with no focal mass. The uterus is anteverted, anteflexed The endometrium measures 3 mm, normal The ovaries are not visualized No free fluid US/US pelvis w/ transvaginal IMPRESSION: No acute abnormality Electronically authenticated by: GALINA BECERRIL Date: 05/09/2024 13:24 Dictated By: Galina Becerril M.D. Signed By: 05/09/241325 DD/ 23 TD/TT: Rewards Consultant: THAD HealthcareRadiology Study observation (narrative)THAD HealthcareUS PELVIS W/ TRANSVAGINALOrdered By: Radiologist Radiology on 62-35-5075QXVO Healthcare Work Phone: SHADI,MEREDITH HPV,AGE GDLNon [phone] GDLN ACOG TESTINGNote.[facility] HealthcareComment on above:TESTS RESULT FLAG UNITS REF RANGE LAB Clinician Provided Cytology Information Source.............Cervix;Endocervix No. of containers..01 ThinPrep Vial Age Algo ACOG Charleen... Note 01 <21 or >65 or no age provided FLAG LEGEND: L-Low Normal,H-High Normal,LL-Alert Low,HH-Alert High <-Panic Low,>-Panic High,A-Abnormal,AA-Critical Abnormal Performed at: 01 =G [facility] [address] Lori Joaquin MD, PAP IG (IMAGE GUIDED)Note.[facility] HealthcareComment on above:TESTS RESULT FLAG UNITS REF RANGE LAB DIAGNOSIS: 02 NEGATIVE FOR INTRAEPITHELIAL LESION OR MALIGNANCY. THIS SPECIMEN WAS RESCREENED PART OF OUR PORT PURSER PROGRAM. Specimen adequacy: 02 Satisfactory for evaluation. Endocervical and/or squamous metaplastic cells (endocervical component) are present. Performed by: 02 Leola Powell, Movement Assembly Final Inspector ([facility]) QC reviewed by: 02 Ana Maria Schaffer, Movement Assembly Final Inspector ([facility]) . 02 Note: Note 02 The Pap [...] <-Panic Low,>-Panic High,A-Abnormal,AA-Critical Abnormal Performed at: [address] [facility] [address] [place] [address] Lori Joaquin MD, Performed at: =G - [facility] [address] [id number] Evaluation Manager: Lori Joaquin MD, Phone: [phone] Performed at: - [facility] [id number] Evaluation Manager: Lori Joaquin MD, Phone: [phone] BRUSH-SPATULA CERVIX ENDOCERVIX CLINISYNCNOMS HealthcareUrinalysis macro (dipstick) panel (U)on 04-24-2024 Bilirubin, UANegativeNegative - 4(70) +++ mg/dLNOMS HealthcareBlood, UANegative Negative - 50 Zheng/mcLNOLA HealthcareClarity, UAClearNOMS HealthcareColor, UA YellowNOMS HealthcareGlucose, UANegativeNegative - 2000(110) ++++ mg/dLNOMS HealthcareInterpretation and review of laboratory resultsNormalNOLA Healthcare Ketones, UANegativeNegative - 160(16) ++++ mg/dLNOLA HealthcareLeukocytes, UA NegativeNegative - 500+++ Ilene/mcLNOMS HealthcareNitrite, UANegativeNegative - PositiveNOMS HealthcarepH, UA6.55 - 9NOMS HealthcareProtein, UANegativeNegative - 2000(20) ++++ mg/dLNOMS HealthcareSpec Grav, UA1.021 - 1.03N[facility] Healthcare Urobilinogen, UA1.00.2 - 12 mg/dLNOMS HealthcareNOMS HealthcareAmbulatory Visit Summaryon 27-94-5660Mvlvtyjmhq Visit SummaryAmbulatory Visit Summary IVONNE ECHEVARRIA :1955 Visit Date:04/22/2024 [...] Morgan TILLMAN MD Where: [facility] [address] [place] [address] [place] [address]- You Need to Schedule the Following Appointments Follow Up with Morgan TILLMAN MD, URL When: Comments: IO UD Where: [address] [place] [address] [place] [address]- Medications What How Much When Instructions Unchanged [...] narrow because of scar tissue, infection, surgery, marybeth injury. This can make it difficult to [...] of developing this co (more content not included)...[facility] CampusUrology Office/Clinic Noteon 50-27-7595Xwlmivn Office/Clinic NoteUrology Office/Clinic Note Chief Complaint 15 month follow [...] with voice recognition artificial intelligence software, specifically [employer], [employer] and or [employer]. Substitutions may have occurred due to the [...] Urnls Dip Stick Auto w/o Microscopy POC 26331 2. Chronic cystitis (N30.20: Other chronic cystitis [...] Urnls Dip Stick Auto w/o Microscopy POC 41176 3. Feeling of incomplete bladder emptying (R39.14: Feeling of incomplete bladder emptying) Occasional PVR today 0 -cont to monitor Ordered: 63270 Measure Post Void residual urine and/or bladder capacity by US- non-imaging Follow-up With When Contact Information PRIMO GRUBER, Morgan Haynes, URL [address] [place] [address]- Additional Instructions: IO UD Patient Education Urethral [...] inactivated 10/10/2021 Recorded SARS-CoV- (more content not included)...[facility] CampusComment on above:Result Comment: Electronically Signed By: EDGAR Ruff APRN, [place] X\.br\Date and Time Signed: 04/22/24 09:55 EDTCytology Cervical or vaginal smear or scraping studyOrdered By: Chantelle Carbone on 15-62-1880RPTM HealthcareAlanine aminotransferase [Enzymatic activity/volume] in Serum or PlasmaOrdered By: John Robert on 13-10-9862DYQ [Catalytic activity/Vol]15 U/L7-52[facility] HospitalAlbumin [Mass/volume] in Serum or Plasma by Bromocresol green (BCG) dye binding methoOrdered By: John Robert on 61-24-9183Afsrhel BCG dye [Mass/Vol]4.4 g/dL3.5-5.7FWayne HospitalAlkaline phosphatase [Enzymatic activity/volume] in Serum or PlasmaOrdered By: John Robert on 52-77-2050YMU [Catalytic activity/Vol]51 U/M69-747AfoxkutnfAultman Alliance Community HospitalAspartate aminotransferase [Enzymatic activity/volume] in Serum or Plasma Ordered By: John Robert on 79-02-3225RNU [Catalytic activity/Vol]22 U/L13-39 [facility] HospitalBasophils Auto (Bld) [#/Vol]Ordered By: John Robert on 00-21-6460Kybzbdxyy (Bld) [#/Vol]0.1 10*3/uL0.0-0.2FWayne HospitalBasophils/100 WBC Auto (Bld)Ordered By: John Robert on 01-07-2023 Basophils/100 WBC (Bld)1.5 %.[facility] HospitalBilirubin.total [Mass/volume] in Serum or PlasmaOrdered By: John Robert on 41-32-1774Lgnmunooz [Mass/Vol]0.5 mg/dL0.3-1.0[facility] HospitalCalcium [Mass/volume] in Serum or PlasmaOrdered By: John Robert on 28-99-3774Nbsyiod [Mass/Vol]9.4 mg/dL8.6-10.3FWayne HospitalCarbon dioxide, total [Moles/volume] in Serum or PlasmaOrdered By: John Robert on 99-03-7363ZQ1 [Moles/Vol]31.4 mmol/L21.0-31.0[facility] HospitalChloride [Moles/volume] in Serum or PlasmaOrdered By: John Robert on 12-29-5962Mfcrzvnw [Moles/Vol]104 mmol/M06-797WtbyqcfdgAultman Alliance Community HospitalCreatine kinase [Enzymatic activity/volume] in Serum or PlasmaOrdered By: John Robert on 21-46-8160JV [Catalytic activity/Vol]131 U/K70-893WvwuvonwvAultman Alliance Community HospitalCreatinine [Mass/volume] in Serum or PlasmaOrdered By: John Robert on 84-70-4018Dqwkkjhwqx [Mass/Vol]0.84 mg/dL0.60-1.20[facility] HospitalEosinophils Auto (Bld) [#/Vol]Ordered By: John Robert on 01-07-2023 Eosinophils (Bld) [#/Vol]0.3 10*3/uL0.0-0.45[facility] Eosinophils/100 WBC Auto (Bld)Ordered By: John Robert on 01-07-2023 Eosinophils/100 WBC (Bld)6.3 %.[facility] HospitalErythrocyte distribution width Auto (RBC) [Ratio]Ordered By: John Robert on 01-07-2023 Erythrocyte distribution width (RBC) [Ratio]13.5 %11.9-15.3FWayne HospitalGlobulin Calc (S) [Mass/Vol]Ordered By: John Robert on 01-07-2023 Globulin (S) [Mass/Vol]2.8 g/dLAultman Alliance Community HospitalGlucose [Mass/volume] in Serum or PlasmaOrdered By: John Robert on 14-79-4175Qzhtlij [Mass/Vol]91 mg/aI92-500DwccaztbcAultman Alliance Community HospitalComment on above:ADA recommended reference rangeRandom Glucose Reference Range is dependent on time and content of last meal. Glucose of more than 200 mg/dL in a nonstressed, ambulatory subject supports the diagnosisof Diabetes Mellitus.Hematocrit Auto (Bld) [Volume fraction]Ordered By: John Robert on 08-67-1303Ihkmsywzne (Bld) [Volume fraction]41.1 %34.0-46.4FWayne HospitalHemoglobin [Mass/volume] in BloodOrdered By: John Robert on 09-39-1663Ooegbrjvzl (Bld) [Mass/Vol]14.3 g/dL11.8-15.4FWayne HospitalLeukocytes [#/volume] corrected for nucleated erythrocytes in Blood by Automated coun Ordered By: John Robert on 00-90-5662ZSG corrected for nucl RBC Auto (Bld) [#/Vol]5.1 10*3/uL3.8-11.6FWayne HospitalLymphocytes Auto (Bld) [#/Vol]Ordered By: John Robert on 42-47-7862Dmeyzmopmvu (Bld) [#/Vol]1.4 10*3/uL1.00-4.8[facility] HospitalLymphocytes/100 WBC Auto (Bld) Ordered By: John Robert on 30-84-9270Ndrgtehfawq/100 WBC (Bld)26.9 %.[facility] Auto (RBC) [Entitic mass]Ordered By: John Robert on 34-47-3170BOW (RBC) [Entitic mass]30.1 pg24.7-34.3FWayne HospitalMCHC Auto (RBC) [Mass/Vol]Ordered By: John Robert on 97-40-1187JDKN (RBC) [Mass/Vol]34.7 g/dL32.0-35.0[facility] HospitalMCV Auto (RBC) [Entitic vol]Ordered By: John Robert on 56-91-7413UOO (RBC) [Entitic vol]86.8 fL 80-100[facility] HospitalMonocyte distribution width [Entitic volume] in Blood by AutomatedOrdered By: John Robert on 64-10-6060Htanfnjf distribution width Auto (Bld) [Entitic vol]15.51 %0.00-20.00[facility] HospitalMonocytes Auto (Bld) [#/Vol]Ordered By: John Robert on 01-07-2023 Monocytes (Bld) [#/Vol]0.4 10*3/uL0.0-0.8[facility] Monocytes/100 WBC Auto (Bld)Ordered By: John Robert on 23-75-0074Njospvlbl/100 WBC (Bld)8.6 %.[facility] HospitalNeutrophils Auto (Bld) [#/Vol] Ordered By: John Robert on 41-98-8947Ddloxalajmi (Bld) [#/Vol]2.9 10*3/uL1.8-7.7 [facility] HospitalNeutrophils/100 WBC Auto (Bld)Ordered By: John Robert on 13-12-1255Rkfibvcgmjs/100 WBC (Bld)56.7 %.[facility] HospitalNo Panel InformationOrdered By: John Robert on 59-90-1084Iqtbqliyq GFR (CKD-EPI)> 60.0 mL/MinAultman Alliance Community HospitalPharmacy Creatinine Clearance (Chem59.57[facility] HospitalNucleated erythrocytes [Presence] in Blood by Automated countOrdered By: John Robert on 01-07-2023 Nucleated RBC Auto Ql (Bld)0.1 /100{WBC}0-0.5FWayne Hospital Platelet mean volume Auto (Bld) [Entitic vol]Ordered By: John Robert on 90-17-8145Gocfkdcv mean volume (Bld) [Entitic vol]6.9 fL6.3-10.7FWayne HospitalPlatelets Auto (Bld) [#/Vol]Ordered By: John Robert on 03-68-9916Xdvjylfkq (Bld) [#/Vol]325 10*3/kE053-064CrefedakbAultman Alliance Community HospitalPotassium [Moles/volume] in Serum or PlasmaOrdered By: John Robert on 10-71-3295Qfpkjyrhg [Moles/Vol]4.2 mmol/L3.5-5.1FWayne HospitalProtein [Mass/volume] in Serum or PlasmaOrdered By: John Robert on 34-54-5726Yxlpzlj [Mass/Vol]7.2 g/dL6.4-8.9[facility] HospitalRBC Auto (Bld) [#/Vol]Ordered By: John Robert on 85-10-6447TAT (Bld) [#/Vol]4.74 10*6/uL3.60-5.00[facility] Medical Centererum or plasma albumin/globulin mass ratioOrdered By: John Robert on 58-58-2431Uvuvjcj/Globulin [Mass ratio]1.6 {ratio}[facility] Centererum or plasma anion gap determinationOrdered By: John Robert on 53-57-9508Vdahk gap [Moles/Vol]8.8 mmol/L6.0-15.0[facility] Centerodium [Moles/volume] in Serum or PlasmaOrdered By: John Robert on 03-39-2177Joycer [Moles/Vol]140 mmol/X792-678 [facility] HospitalTroponin I.cardiac [Mass/volume] in Serum or Plasma by Detection limit <= 0.01 ng/Ordered By: John Robert on 01-07-2023 Troponin I.cardiac DL <= 0.01 ng/mL [Mass/Vol]2.3 pg/mL0.0-15.0[facility] HospitalUrea nitrogen [Mass/volume] in Serum or PlasmaOrdered By: John Robert on 16-17-7019Kdnp nitrogen [Mass/Vol]14 mg/dL7-25[facility] HospitalWBC Auto (Bld) [#/Vol]Ordered By: John Robert on 74-87-3217VFY (Bld) [#/Vol]5.1 10*3/uL3.8-11.6FWayne HospitalCovid-19 PCR (CVDTB)on 01-09-1364FMQR-CoV-2 (COVID-19) RNA LESLY+probe Ql (Unsp spec)Not detectedNormalNOT DETECTEDThe [facility] HospitalComment on above:Result Comment: This test is not yet approved or cleared by the [place] FDA. When there are no FDA-approved or cleared tests available, and other criteria are met, FDA can make tests available under an emergency access mechanism called an Emergency Use Authorization (EUA). The EUA for this test is supported by the [place] of Health and Human Service's (HHS's) declaration [...] of clinical signs and symptoms consistent with SARS-CoV-2.Performed By: #### CVDTBH #### [facility] [address] [place] [address] Dr. Allison Valenzuela AND B Jairo 72-31-8420SOAKHWTBESFQHLake County Memorial Hospital - WestComment on above:Result Comment: Negative for Flu A protein angiten. Infection due to Flu A cannot be ruled out. FluA angiten in the sample may be below the detection limit of the test.Performed By: #### INFLUAB, RSV #### [facility] [address] [place] [address] Dr. Allison LeonUBNEGVERONICA [facility] Samaritan HospitalComment on above: Result Comment: Negative for Flu B protein antigen. Infection due to Flu B cannot be ruled out. FluB antigen in the sample may be below the detection limit of the test.Performed By: #### INFLUAB, RSV #### [facility] [address] [place] [address] Dr. Allison Valenzuela AGNegativeNormalNEGATIVE SEE COMMENTThe [facility] HospitalComcorewell health reed city hospital on above:Performed By: #### INFLUAB, RSV #### [facility] [address] [place] [address] Dr. Allison Barraza AGNegativeNormalNEGATIVE SEE COMMENTThe [facility] on above:Performed By: #### INFLUAB, RSV #### [facility] [address] [place] [address] Dr. Allison Amin 86-02-5674XWD AGNegativeNormalNEGATIVEThe [facility] Comment on above:Performed By: #### INFLUAB, RSV #### [facility] [address] [place] [address] Dr. Allison Ag CARDIAC SCORINGon 43-62-7104RW CARDIAC SCORINGAddendum Begins Patient Name: IVONNE ECHEVARRIA ADDENDUM: Technical: [...] hypertension E78.5: Hyperlipidemia. COMPARISON: None. ACCESSION NUMBER(S): [id number] ORDERING CLINICIAN: SAMANTHA ROBERT TECHNIQUE: Using prospective [...] increased >800 Rhonda et al. JCCT 2016 (http://dx.doi.org/10.1016/j.jcct.2016.11.003) NGO Percentile In general, greater than 75th [...] Calcification can be calcuate using link below https://www.ngo-nhlbi.org/MESACHDRisk/MesaRiskScore/RiskScore.aspx Robbie. JACC 2015 (http://dx.doi.org/10.1016/j.j acc.2015.08.035) Reading Transformation Lead: Dr. Ricardo Cannon, Date: 05/31/2022 12:28 pm Electronically signed by: GILBERTO HATCH MDSuburban Community Hospital Cardiac Scoringon 84-75-0540OJ Cardiac ScoringNormLower [facility] [address] DO Work Phone: Office Visit (Cardiology)on 05-02-2122Qcuaax-up visit Diagnoses/Problems Assessed Palpitations (785.1) (R00.2) PVC symptomatic Reported 3% PVC burden [facility] at [facility] summer 2021. We will request [...] making process incorporating patients unique circumstances, the followingtreatment plan will be initiated: 1. Prescription drug [...] last office follow-up. She was evaluated by [facility] cardiology for second opinion regarding palpitations. Reports a 14-day [place] with 3% PVC burden. Bisoprolol changed to Toprol 25 mg daily, increased to 37.5 mg dailyby PCP approximately 2 months ago. She was unable to tolerate magnesium oxide due to GI complaints. She reports a home sleep study that did not indicate need for additional testing. No caffeine, no alcohol, no greh-ybz-cdemmew medications or energy drinks. Encouraged to get [...] Capsuleone daily Estradiol 0.1 MG/GM Vaginal CreamINSERT 1/ APPLICATORFUL (1GM) VAGINALLY TWICE WEEKLY. Multi Vitamin Oral TabletTAKE 1 TABLET DAILY. Pantoprazole Sodium 40 MG Oral Tablet Delayed ReleaseTAKE 1 TABLET DAILY. PARoxetine HCl - 20 MG Oral TabletTAKE 1 TABLET DAILY. Rosuvastatin Calcium 10 MG Oral TabletTake 1 tablet by mouth daily Toprol XL 25 MG Oral Tablet Extended (more content not included)...NormalUH TouchworksTobacco Screening.on 38-27-8027Rgtdnky use status CPHSb) NoMP-[facility] [employer] 250 DO Work Phone: Tobacco Screening.YesMP-[facility] [employer] 250 DO Work Phone: PAP ACOG PANEL 2: 30 to 65on 04-20-2022..NormalSelect Medical Specialty Hospital - AkronComment on above:Result Comment: Performed at: WBPerformed By: #### [id number] #### [facility] [address] [address] [address] Allison Blair Gdln ACOG Pnnconb21-48AqxherBowAkron Children's HospitalComment on above:Performed By: #### [id number] #### [facility] [address] [address] [address] Allison FaulknerDIAGNOSIS:CommentCleveland Clinic FoundationComment on above: Result Comment: NEGATIVE FOR INTRAEPITHELIAL LESION OR MALIGNANCY. REACTIVE CELLULAR CHANGES AND/OR REPAIR ARE PRESENT. Performed at: WBPerformed By: #### [id number] #### [facility] [address] [address] [address] Cooper ChangElectronically signed by:CommentCleveland Clinic Foundation Comment on above:Result Comment: Lori Joaquin MD, Pathologist Performed at: WBPerformed By: #### [id number] #### [facility] [address] [address] [address] Allison FaulknerHPV AptimaNegativeNormalNegativeThe [facility] on above:Result Comment: This nucleic acid amplification test detects fourteen high-risk HPV types (16,18,31,33,35,39,45,51,52,56,58,59,66,68) without differentiation. Performed at: =GPerformed By: #### [id number] #### [facility] [address] [place] [address] Dr. Allison FaulknerMethodology:CommentNoOhioHealth Riverside Methodist Hospital on above: Result Comment: This liquid based ThinPrep(R) pap test was screened with the use of an image guided system. Performed at: WBPerformed By: #### [id number] #### [address] [address] [address] Allison FaulknerNote:CommentGlenbeigh Hospital on above:Result Comment: The Pap smear is a screening test designed to aid in the detection of premalignant and malignant conditions of the uterine cervix. It is not a diagnostic procedure and should not be used as the sole means of detecting cervical cancer. Both false-positive and false-negative reports do occur. . Performed at: WBPerformed By: #### [id number] #### [facility] [address] [place] [address] Dr. Allison FaulknerPerformed by:CommentNoOhioHealth Riverside Methodist Hospital on above: Result Comment: Dalia Nation, Movement Assembly Final Inspector (ASCP) Performed at: WBPerformed By: #### [id number] #### [facility] [address] [place] [address] Dr. Allison FaulknerSpecimen adequacy:CommentGlenbeigh Hospital on above:Result Comment: Satisfactory for evaluation. Endocervical and/or squamous metaplastic cells (endocervical component) are present. Performed at: WBPerformed By: #### [id number] #### [facility] [address] [place] [address] Dr. Allison FaulknerMG MAMM SCREEN 3D LUAN CADon 11-13-9948CA MAMM SCREEN 3D LUAN CAD Patient: IVONNE ECHEVARRIA Exam Date: 04/18/2022 : 1955 Gender:F Ordering : DR TYLER ERVIN . Admission #: [id number] Family : Order #: [id number] CLICK HERE TO VIEW EXAM RADIOLOGY REPORT [...] rectal cancer at age 71. LOCATION: [facility] BREAST COMPOSITION: Extremely dense, which lowers the [...] by: Galina Becerril MD on 04/18/2022 at 10:32Cleveland Clinic FoundationXR DEXA BONE DENSITYon 86-52-0985RL DEXA BONE DENSITYEXAMINATION: XR DEXA BONE DENSITY, 04/18/2022 9:32 AM EDT HISTORY: [...] Electronically authenticated by: BRIAN STEVEN Date: 2022-04-18 16:16[facility] FoundationComplete Blood Count with Auto Diffon 89-09-7829Dxktyqwnp (Bld) [#/Vol]0.10 10*3/uLNormal0.00-0.20[facility] SpecialistComment on above:Performed By: #### LIPD, CBCAD, CMP #### [facility] [address], [place] [id number]/100 WBC (Bld)1.7 %NormalEast Liverpool City Hospital SpecialistComment on above:Performed By: #### LIPD, CBCAD, CMP #### [facility] [address], [place] [id number] (Bld) [#/Vol]0.65 10*3/uLHigh0.02-0.50[facility] SpecialistComment on above:Performed By: #### LIPD, CBCAD, CMP #### [facility] [address], [place] [id number]/100 WBC (Bld)10.9 %NormalEast Liverpool City Hospital SpecialistComment on above:Performed By: #### LIPD, CBCAD, CMP #### [facility] [address], [place] [id number] distribution width (RBC) [Ratio]12.0 %Normal 11.0-15.0[facility] SpecialistComment on above:Performed By: #### LIPD, CBCAD, CMP #### [facility] [address], [place] [id number] (Bld) [Volume fraction]41.5 %Zspnsw95.0-47.0 [facility] HospitalComment on above:Performed By: #### LIPD, CBCAD, CMP #### [facility] [address], [place] [id number] (Bld) [Mass/Vol]13.5 g/hUFxjouh13.6-15.5[facility] [place] [facility] SpecialistComment on above:Performed By: #### LIPD, CBCAD, CMP #### [facility] [address], [place] [id number] (Bld) [#/Vol]1.5 10*3/uLNormal0.9-3.9NoDetwiler Memorial Hospital SpecialistComment on above:Performed By: #### LIPGardenia, CBCAD, CMP #### [facility] [address], [place] [id number]/100 WBC (Bld)25.0 %NormalNoDetwiler Memorial Hospital SpecialistComment on above:Performed By: #### LIPGardenia, CBCAD, CMP #### [facility] [address], [place] [id number] (RBC) [Entitic mass]29.6 ncZjatfr31.0-33.0NoDetwiler Memorial Hospital SpecialistComment on above:Performed By: #### LIPGardenia, CBCAD, CMP #### [facility] [address], [place] [id number] (RBC) [Mass/Vol]32.5 g/dOHqhxlj68.0-36.0NoDetwiler Memorial Hospital SpecialistComment on above:Performed By: #### LIPGardenia, CBCAD, CMP #### [facility] [address], [place] [id number] (RBC) [Entitic vol]91 cXArqwvu34-832Knmcgilv [place] [facility] SpecialistComment on above:Performed By: #### LIPD, CBCAD, CMP #### [facility] [address], [place] [id number] (Bld) [#/Vol]0.5 10*3/uLNormal0.2-0.9NoDetwiler Memorial Hospital SpecialistComment on above:Performed By: #### LIPD, CBCAD, CMP #### [facility] [address], [place] [id number]/100 WBC (Bld)8.1 %NormalNoDetwiler Memorial Hospital SpecialistComment on above:Performed By: #### LIPD, CBCAD, CMP #### [facility] [address], [place] [id number] (Bld) [#/Vol]3.2 10*3/uLNormal1.5-7.8NoDetwiler Memorial Hospital SpecialistComment on above:Performed By: #### LIPGardenia, CBCAD, CMP #### [facility] [address], [place] [id number]/100 WBC (Bld)54.1 %NormalNoDetwiler Memorial Hospital SpecialistComment on above:Performed By: #### LIPGardenia, CBCAD, CMP #### [facility] [address], [place] [id number] mean volume (Bld) [Entitic vol]9.90 fLNormal 7.50-12.50NoDetwiler Memorial Hospital SpecialistComment on above:Performed By: #### LIPGardenia, CBCAD, CMP #### [facility] [address], [place] [id number] (Bld) [#/Vol]336 10*3/lKFbtbft391-621Poyyopii [place] [facility] SpecialistComment on above:Performed By: #### LIPGardenia, CBCAD, CMP #### [facility] [address], [place] [id number] (Bld) [#/Vol]4.56 10*6/uLNormal3.90-5.20[facility] SpecialistComment on above:Performed By: #### LIPGardenia, CBCAD, CMP #### [facility] [address], [place] [id number]-CR16.6 jNXplhkn49.0-50.0NoDetwiler Memorial Hospital Specialist Comment on above:Performed By: #### LIPGardenia, CBCAD, CMP #### [facility] [address], [place] [id number] (Bld) [#/Vol]6.0 10*3/uLNormal3.8-11.0NoDetwiler Memorial Hospital SpecialistComment on above:Performed By: #### LIPGardenia, CBCMATY, CMP #### [facility] [address], [place] [id number] Metabolic Panelon 59-29-5542Sigrqip [Mass/Vol] 4.6 g/dLNormal3.6-5.1[facility] SpecialistComment on above:Performed By: #### CECILIO CBCMATY, CMP #### [facility] [address], [place] [id number]/Globulin [Mass ratio]2.1 {ratio}Normal1.0-2.5Northonorhealth john [facility] centern [facility] SpecialistComment on above:Performed By: #### CECILIO CBCMATY, CMP #### [facility] [address], [place] [id number] [Catalytic activity/Vol]68 U/JMpvtxb67-772Yhvarizw [place] [facility] SpecialistComment on above:Performed By: #### CECILIO CBCMATY, CMP #### [facility] [address], [place] [id number] [Catalytic activity/Vol]18 U/LNormal6-33[facility]Reg[facility] SpecialistComment on above:Result Comment: 06/08/2021 Female reference range changed.Performed By: #### CECILIO CBCMATY, CMP #### [facility] [address], [place] [id number] gap [Moles/Vol]15 mmol/GMpfini37-77Czlkqzhe [place] [facility] SpecialistComment on above:Result Comment: Effective 07/14/2019 reference range changed.Performed By: #### CECILIO CBCAD, CMP #### [facility] [address], [place] [id number] [Catalytic activity/Vol]24 U/LNormal9-34[facility] SpecialistComment on above:Performed By: #### CECILIO CBCAD, CMP #### [facility] [address], [place] [id number] [Mass/Vol]0.71 mg/dLNormal0.30-1.20[facility] SpecialistComment on above:Performed By: #### LIPD, CBCAD, CMP #### [facility] [address] [place], [place] [id number]/CREA34 RatioHigh6-22Northonorhealth j[facility] centern [place] [employer] Comment on above:Performed By: #### CECILIO CBCAD, CMP #### [facility] [address] [place], [place] [id number] [Mass/Vol]9.3 mg/dLNormal8.6-10.2[facility] [place] [facility] SpecialistComment on above:Performed By: #### CECILIO CBCAD, CMP #### [facility] [address] [place], [place] [id number] [Moles/Vol]105 mmol/WQvvkrs90-659Ocfkfmyl [place] [facility] SpecialistComment on above:Performed By: #### CECILIO CBCAD, CMP #### [facility] [address] [place], [place] [id number] [Moles/Vol]28 mmol/BSmxfsb32-04Sfkhiqnk [place] [facility] SpecialistComment on above:Performed By: #### CECILIO CBCAD, CMP #### [facility] [address] [place], [place] [id number] [Mass/Vol]0.6 mg/dLNormal0.6-1.4Northonorhealth j[facility] centern [place] [facility] SpecialistComment on above:Performed By: #### CECILIO CBCAD, CMP #### [facility] [address] [place], [place] [id number] mL/min/1.68k7Xgexxu>60[facility] [place] [facility] SpecialistComment on above:Performed By: #### LIPGardenia CBCAD, CMP #### [facility] [address] [place], [place] [id number] mL/min/1.99s2Ubusoi>60[facility]onorhealth [facility] centern [place] [facility] SpecialistComment on above:Performed By: #### CECILIO CBCAD, CMP #### [facility] [address] [place], [place] [id number] (S) [Mass/Vol]2.2 g/dLNormal1.9-3.7NoDetwiler Memorial Hospital SpecialistComment on above:Performed By: #### LIPGardenia CBCAD, CMP #### [facility] [address], [place] [id number] [Mass/Vol]86 mg/iOKyauex02-17Ejtlzjzu [place] [facility] SpecialistComment on above:Result Comment: For FASTING Glucose --- ADA reference ranges: Normal 65-99 mg/dl Prediabetes 100-125 Diabetes >/= 126Performed By: #### LIPGardenia, CBCAD, CMP #### [facility] [address], [place] [id number] [Moles/Vol]4.4 mmol/LNormal3.5-5.5NoDetwiler Memorial Hospital SpecialistComment on above:Performed By: #### LIPGardenia, CBCAD, CMP #### [facility] [address], [place] [id number] [Mass/Vol]6.8 g/dLNormal6.1-8.1NorthClermont [facility] SpecialistComment on above:Performed By: #### LIPGardenia, CBCAD, CMP #### [facility] [address], [place] [id number] [Moles/Vol]143 mmol/IJwqqby410-135Adcderdg [place] [facility] SpecialistComment on above:Performed By: #### LIPGardenia, CBCAD, CMP #### [facility] [address], [place] [id number] nitrogen [Mass/Vol]20 mg/dLNormal7-25NoDetwiler Memorial Hospital SpecialistComment on above:Performed By: #### LIPD, CBCAD, CMP #### [facility] [address], [place] [id number] Panelon 33-94-5874Wgoynylhony [Mass/Vol]192 mg/dLNormal 125-200NoDetwiler Memorial Hospital SpecialistComment on above:Result Comment: Low risk < 200mg/dL Borderline risk 201-239 mg/dl High risk > or equal to 240Performed By: #### LIPD, CBCAD, CMP #### [facility] [address], [place] [id number] in HDL [Mass/Vol]61 mg/dLNormal>40[facility] SpecialistComment on above:Result Comment: High Cardiovascular Risk HDL <40 mg/dL Low Cardiovascular Risk HDL > or equal to 60 mg/dlPerformed By: #### LIPGardenia CBCAD, CMP #### [facility] [address], [place] [id number] in LDL [Mass/Vol]118 mg/dLNormalNortRegional Medical Center SpecialistComment on above:Result Comment: LDL ATP III CLASSIFICATION LDL less than 100 mg/dl Optimal LDL 100-129 mg/dl Near or above optimal LDL 130-159 Borderline high LDL 160-189 High LDL greater than 189 mg/dl Very HighPerformed By: #### CECILIO, CBCAD, CMP #### [facility] [address], [place] [id number] in VLDL [Mass/Vol]13 mg/dLNormalNoDetwiler Memorial Hospital SpecialistComment on above:Performed By: #### LIPGardenia CBCAD, CMP #### [facility] [address], [place] [id number].total/Cholesterol in HDL [Mass ratio]3 {ratio} NormalNortRegional Medical Center SpecialistComment on above:Performed By: #### LIPGardenia CBCAD, CMP #### [facility] [address], [place] [id number] [Mass/Vol]66 mg/yJFfkfps76-849Qyciutbg [place] [facility] SpecialistComcorewell health [facility] on above:Result Comment: TRIG ATPIII CLASSIFICATIONS TRIG less than 150 mg/dl Normal TRIG 150-199 mg/dl Borderline High TRIG 200-500 mg/dl High TRIG greather than 500 mg/dl Very HighPerformed By: #### LIPGardenia, CBCAD, CMP #### [facility] [address] [place], [place] [id number] [id number] Visit (CARCMN) IVONNE ECHEVARRIA ([id number]) 1955 F Date Time Provider Department 08/12/21 9:45 AM GASPER HAMILTON During your visit today, we recorded the following information about you: Pulse Blood pressure Weight Height 67/minute 143/82 67.1 kg 1.575 m Gasper Hamilton MD 08/12/2021 11:45 AM Formerly [facility] [place] [facility] Department of Cardiovascular Medicine SECTION OF CLINICAL CARDIOLOGY OUTPATIENT VISIT DATE August 12, 2021 OUTPATIENT VISIT TYPE NEW PRIMARY CARE PHYSICIAN : Conchis Zamora, [address] JESUS MANUEL [address] [place] [address] REFERRING PHYSICIAN: Teagan Szymanski [address] [facility] [address] CHIEF COMPLAINT: Second opinion Cardiovascular evaluation HISTORY OF PRESENT ILLNESS: Ms. Echevarria is a 65 year old female who presents today for cardiovascular evaluation. CARDIAC HISTORY: ? Palpitations, evaluated by [facility] as well as Dr. Schneider in [place]. Chronic in nature. Has been on atenolol [...] burden with a Zio (she's going to [place] for two weeks but wishes to wear [...] on file No family (more content not included)...[facility]PNon [id number] (CARCMN) IVONNE ECHEVARRIA ([id number]) 1955 F Date Time Provider Department 07/20/21 GASPER HAMILTON During your visit today, we recorded the following information about you: Radha Katz Adm 07/20/2021 10:53 AM Signed Received by fax multiple Medical Records from [facility]. Pt has future 08/12/21 appt. [address] into Dr. Hamilton OPD folder, scanned into Onbase and placed in Dr Hamilton in basket for review Radha Katz Adm Allergies As of Date: 07/20/2021 Noted Allergy Reaction BIAXIN (CLARITHROMYCIN) 09/29/2016 5 - Intolerance Date Reviewed: Never Reviewed Reason for Visit: Received Outside Medical Records [[id number]] Cmt: [facility] Prescriptions as of 07/20/2021 - ergocalciferol, vitamin [...] Take by mouth. - Vit A,C and J-Mlut-W0-Lut-Mn-Glu (EYE-MIRZA EXTRA + LUTEIN) 1000 unit-300mg -100 unit-2 mg tab Take by mouth. - UBIDECARENONE (CO Q-10 ORAL) Take by mouth. - aspirin, enteric coated (ASPIRIN, ENTERIC COATED) 81 mg EC tablet Take 81 mg by mouth once daily. Problem List As Of Date 07/20/2021 Noted Resolved Vitamin D deficiency [E55.9] 10/07/2016 Encounter Status:Closed by RADHA MURPHY on 07/20/21[facility] [id number] (ZACK) IVONNE ECHEVARRIA ([id number]) 1955 F Date Time Provider Department 07/12/21 [...] Reason for Visit: Request Outside Medical Records [[id number]] Prescriptions as of 07/12/2021 - ergocalciferol, vitamin [...] Take by mouth. - Vit A,C and T-Pkqq-J1-Lut-Mn-Glu (EYE-MIRZA EXTRA + LUTEIN) 1000 unit-300mg -100 unit-2 mg tab Take by mouth. - UBIDECARENONE (CO Q-10 ORAL) Take by mouth. - aspirin, enteric coated (ASPIRIN, ENTERIC COATED) 81 mg EC tablet Take 81 mg by mouth once daily. Problem List As Of Date 07/12/2021 Noted Resolved Vitamin D deficiency [E55.9] 10/07/2016 Encounter Status:Closed by RADHA MURPHY on 07/12/21[facility] ([facility]iology)on [id number]-up visitDiagnoses/Problems Assessed Palpitations (785.1) (R00.2) Hyperlipidemia (272.4) (E78.5) Essential hypertension (401.9) (I10) Overweight with body mass index (BMI) of 26 to 26.9 in adult (278.02,V85.22) (E66.3,Z68.26) Patient Instructions By signing my name below, I, Racheal Mccord LPN,Sloanibe, attest that this documentation has been prepared under the direction and in the presence of Dr. Ricardo Christian, DO. Please bring all medicines, vitamins, [...] follow-up of. History of Present Illness Ms. cEhevarria is a 65-year-old female seen back today [...] Signs Recorded: 30May2021 08:59AM Heart Rate71, Apical Cxkktugd929, LUE, Sitting Mnuwrbefp33, LUE, Sitting Height5 ft 2 in Rgbbyk278 lb BMI Bgfbwifibc88.52 kg/m2 BSA Calculated1.67 Tobacco Useb) No Fall Screeninga) No falls within the last year Signatures Electronically signed by : Ricardo Christian DO; May 30 2021 9:19AM EST (Author) [facility] TouchworksTobacco Screening.on [id number] risk assessmenta) No falls within the last yearSwedish Medical Center Issaquah [employer] DO Work Phone: Tobacco use status CPHSb) NoMSt. Joseph Medical [facility] [employer] 250 DO Work Phone: Vital Signs Date TimeVital SignValuePerforming IgpudoktmMygdccdf85-05-0742 09:15-0500Body mass index (BMI) [Ratio]27.07 kg/b2Rfpoz [employer] DO Work Phone: NOBarn[facility] HospitalLcyeycidoc05-48-3670 09:15-0500Body gayuss57.13 kgCorey [employer] DO Work Phone: NOBarn[facility]-Jewish [facility] HospitalHmvhhcdhbc60-52-3190 09:15-0500Diastolic blood bdqenwan92 mm[Hg]Tyler Aziza DO Work Phone: NOBarnes-Jewish [facility] HospitalMvruvtfdgs11-50-4636 09:15-0500Systolic blood rwzmqbjo518 mm[Hg]Tyler Fondu Work Phone: NOBarnes-Jewish Saint Peters HospitalWqjpnayiwj54-95-7020 12:27-0400Body foppbe489.5 cmMatthew Petznick DO Work Phone: NOBarnes-Jewish Saint Peters HospitalJyepnxlyeo02-65-4554 12:27-0400Body mass index (BMI) [Ratio]26.52 kg/c9Bkazniz Petznick DO Work Phone: 1(703)[address] [place], [place] 3506308-11-2025 12:27-0400Body temperature 98.2 [degF]Conchis Zamora DO Work Phone: 1(775)[address] [place], [place] 3506308-11-2025 12:27-0400Body lywfmd43.77 kgMattalan Petjamelick DO Work Phone: 1(250)[address] [place], [place] 3506308-11-2025 12:27-0400Diastolic blood wocvftkm73 mm[Hg]Conchis Guerraick DO Work Phone: 1(420)[address] [place], [place] 3506308-11-2025 12:27-0400Heart rate56 /min Conchis Zamora DO Work Phone: 1(058)[address] [place], [place] 3506308-11-2025 12:27-0176XvS7% (BldA) [Mass fraction]96 %Conchis Zamora DO Work Phone: 1(119)[address] [place], [place] 3506308-11-2025 12:27-0400Systolic blood yvtatnop696 mm[Hg]Conchis Zamora DO Work Phone: 1(915)[address] [place], [place] 3506308-01-2025 09:19-0400Body iwgkvd545.5 cmMattalan Petznick DO Work Phone: 1(089)[address] [place], [place] 3506308-01-2025 09:19-0400Body mass index (BMI) [Ratio]26.63 kg/h3Bwgwcyn Petznick DO Work Phone: 1(960)[address] [place], [place] 3506308-01-2025 09:19-0400Body temperature 97.11 [degF]Conchis Zamora DO Work Phone: 1(580)[address] [place] [address]-01-2025 09:19-0400Body evmfvy19.04 kgMattalan Petjamelick DO Work Phone: 1(674)[address] [place] [address]-01-2025 09:19-0400Diastolic blood myzxtoet96 mm[Hg]Conchis Guerraick DO Work Phone: 1(943)[address] [place], [place] 3506308-01-2025 09:19-0400Heart rate67 /min Conchis Zamora DO Work Phone: 1(324)125-[address] [place], [place] [address]Ttcaeotfqs37-31-9905 09:19-0198ByA1% (BldA) [Mass fraction]98 %Conchis Zamora DO Work Phone: 1(542)[address] [place], [place] 3506308-01-2025 09:19-0400Systolic blood qmjgklyr914 mm[Hg]Conchis Zamora DO Work Phone: 1(751)[address] [place], [place] 3506305-15-2025 13:26-0400Body teumxm150.5 cmLacey Damico MD Work Phone: 1(096)[address]05-15-2025 13:26-0400 Body mass index (BMI) [Ratio]26.34 kg/x7LxnayiLacey Damico MD Work Phone: 1(544)[address]05-15-2025 13:26-0400 Body .32 kgLacey Damico MD Work Phone: 1(753)[address]05-15-2025 13:26-0400 Diastolic blood kudqtsxa83 mm[Hg]Lacey Damico MD Work Phone: 1(847)[address]05-15-2025 13:26-0400 Heart rate64 /minLacey Damico MD Work Phone: 1(365)[address]05-15-2025 13:26-0400 Systolic blood dsonrzuj499 mm[Hg]Lacey Damico MD Work Phone: 1(036)[address]04-28-2025 09:24-0400 Body dyohoz245.5 cmMattalan Zamora DO Work Phone: 1(079)[address] [place], [place] 3506304-28-2025 09:24-0400Body mass index (BMI) [Ratio]25.79 kg/y3Vgghpzb Petjamelick DO Work Phone: 1(785)[address] [place], [place] 3506304-28-2025 09:24-0400Body temperature 98.29 [degF]Conchis Zamora DO Work Phone: 1(824)[address] [place], [place] 3506304-28-2025 09:24-0400Body .96 kgMattalan Guerraick DO Work Phone: 1(708)[facility] [place], [place] [address]Fypxdsougl55-21-3933 09:24-0400Diastolic blood zyyeeibc76 mm[Hg]Conchis Zamora DO Work Phone: 1(104)[facility] [place], [place] [address]Ybrslsvllp93-43-0012 09:24-0400Heart rate74 /min Conchis Petjanelle DO Work Phone: 1(388)[facility] [place], [place] [address]Qnrazljnxt70-62-0097 09:24-2131AhM7% (BldA) [Mass fraction]98 %Conchis Petjanelle DO Work Phone: 1(902)[facility] [place] [address]-28-2025 09:24-0400Systolic blood ibxflrfa122 mm[Hg]Conchis Urrutiaznick DO Work Phone: 1(796)[facility] [place], [place] [address]Ncvsdwjcus21-61-4204 10:02-0400Body rhmpok187.5 cmMattalan Petjanelle DO Work Phone: 1(717)[facility] [place], [place] [address]Rwyliwkokx69-43-2797 10:02-0400Body mass index (BMI) [Ratio]26.12 kg/g2Pllmdpr Petjamelick DO Work Phone: 1(691)[facility] [place], [place] [address]Czmiehaljg73-92-9799 10:02-0400Body temperature 97.5 [degF]Conchis Zamora DO Work Phone: 1(262)[facility] [place], [place] [address]Qkghzhggvb62-37-4561 10:02-0400Body bjictn30.77 kgMattalan Zamora DO Work Phone: 1(144)[facility] [place], [place] [address]Qhbgxhpori27-90-5934 10:02-0400Diastolic blood fweudnho53 mm[Hg]Conchis Zamora DO Work Phone: 1(400)[facility] [place] [address]-11-2025 10:02-0400Heart rate73 /min Conchis Zamora DO Work Phone: 1(343)[facility] [place] [address]-11-2025 10:02-7303WxP2% (BldA) [Mass fraction]98 %Conchis Zamora DO Work Phone: 1(011)[facility] [place], [place] [address]Igcbijlajv09-40-0235 10:02-0400Systolic blood qaadlylu525 mm[Hg]Conchis Zamora DO Work Phone: [facility] InstituteNtovnfeakm25-43-2590 10:04-0400Body obregs023.5 cmAdenia Zamora DO Work Phone: 1(780)999-[address] [place], [place] [address]Ttueizuluq74-46-9841 10:04-0400Body mass index (BMI) [Ratio]26.16 kg/n3Udpvhaa Petznick DO Work Phone: 1(666)121-[address] [place], [place] [address]Czgovoxzak29-53-8036 10:04-0400Body temperature 98.71 [degF]Tasha Petjamelick DO Work Phone: 1(768)984-[address] [place], [place] [address]Njryrqnovk88-79-2380 10:04-0400Body gwtyiy22.86 kgTasha Zamora DO Work Phone: 1(118)452-[address] [place], [place] [address]Utvxakinpx56-64-2018 10:04-0400Diastolic blood nepwlmaf32 mm[Hg]Tasha Petznick DO Work Phone: 1(682)429-[address] [place], [place] [address]Fozyovxipd52-48-6609 10:04-0400Heart rate92 /min Tasha Petjamelick DO Work Phone: 1(721)859-[address] [place], [place] [address]Zylahtgdyh11-83-6145 10:04-2850BvD2% (BldA) [Mass fraction]94 %Tasha Petjamelick DO Work Phone: 1(097)272-[address] [place], [place] [address]Vhrhtmxnkb82-18-8320 10:04-0400Systolic blood ksslxixf607 mm[Hg]Tasha Petjamelick DO Work Phone: 1(095)796-[address] [place], [place] [address]Jmfndtdcxp88-50-9176 13:28-0500Body vfaakx392.48 [facility]11-06-2024 13:28-0500Body mass index (BMI) [Ratio]25.9 kg/d0MogmkvleiAultman Alliance Community Hospital11-06-2024 13:28-0500Body rgugzb29.41 kgAultman Alliance [facility] Hospital11-04-2024 09:13-0500Body height 157.5 cmLacey Damico MD Work Phone: [facility]11-04-2024 09:13-0500 Body mass index (BMI) [Ratio]26.7 kg/k7PkvgagLacey Damico MD Work Phone: [facility]11-04-2024 09:13-0500 Body .22 kgLacey Damico MD Work Phone: [facility]11-04-2024 09:13-0500 Diastolic blood ogtadmmy53 mm[Hg]Lacey Damico MD Work Phone: [facility]11-04-2024 09:13-0500 Heart rate68 /Kathy Damico MD Work Phone: [facility]11-04-2024 09:13-0500 Systolic blood asxjiiha504 mm[Hg]Lacey Damico MD Work Phone: [facility]10-17-2024 08:45-0400 Body mass index (BMI) [Ratio]26.54 kg/s4Mdkaf Aziza DO Work Phone: 1(635)576-[address] [place], [place] [address]Nifxiqwnkd15-53-4025 08:45-0400Body vupvol94.83 kgCorey Aziza DO Work Phone: 1(053)[address]10-17-2024 08:45-0400Diastolic blood ulfxuxfk38 mm[Hg]Tyler Aziza DO Work Phone: 1(003)916-[facility] InstituteUhriwunmxt63-56-9261 08:45-0400Systolic blood cjktlzra789 mm[Hg]Tyler Aziza DO Work Phone: 1(189)364-[facility] InstitutePfkfgpgvrg46-72-4932 09:16-0400Blood Pressure LocationAurora Orzech [facility]10-15-2024 09:16-0400Diastolic blood mm[Hg]Ludmila Orzenadir [facility]10-15-2024 09:16-0400Heart rate91 /minItzelrorrell Orzenadir [facility]10-15-2024 09:16-0400Respiratory rate16 /minAurora Ortraech [facility]10-15-2024 09:16-0400Systolic blood srqxcydz514 mm[Hg]Ludmila Ruff [facility]10-07-2024 08:54-0400Body vwzixt587.5 cmMatthew Petznick DO Work Phone: 1(704)211-[address] [place], [place] [address]Zgxgpkoutg78-92-7653 08:54-0400Body mass index (BMI) [Ratio]27.11 kg/f4Lbejgmu Petznick DO Work Phone: 1(470)[address] [place], [place] 3506310-07-2024 08:54-0400Body temperature 96.3 [degF]Conchis Zamora DO Work Phone: 1(546)[facility] [place], [place] [address]Vhzxxpghce17-40-5222 08:54-0400Body oniwcs18.22 kgMatthew Petjamelick DO Work Phone: 1(770)[facility] [place], [place] [address]Sjwhtbxsor62-96-0852 08:54-0400Diastolic blood nmgluozy21 mm[Hg]Conchis Zamora DO Work Phone: 1(569)723-[address] [place], [place] [address]Ikswlzvxot30-38-0172 08:54-0400Heart rate77 /min Conchis Zamora DO Work Phone: 1(275)698-[address] [place], [place] [address]Zdcapchxml79-00-1059 08:54-6715VnR5% (BldA) [Mass fraction]98 %Conchis Guerraick DO Work Phone: 1(769)232-[address] [place], [place] [address]Occhvddgao70-19-6555 08:54-0400Systolic blood okvbexaq045 mm[Hg]Conchis Zamora DO Work Phone: 1(387)243-[address] [place], [place] [address]Ppfjjcudtf73-71-7613 09:11-0400Body aovfra626.5 cmLacey Damico MD Work Phone: [facility]11-02-2023 09:11-0400 Body mass index (BMI) [Ratio]26.16 kg/s1LeboqgLacey Damico MD Work Phone: [facility]11-02-2023 09:11-0400 Body syabkd27.86 kgLacey Damico MD Work Phone: [facility]11-02-2023 09:11-0400 Diastolic blood yogqpjgb51 mm[Hg]Lacey Damico MD Work Phone: [facility]11-02-2023 09:11-0400 Heart rate84 /minLacey Damico MD Work Phone: [facility]11-02-2023 09:11-0400 Systolic blood qtgqlzka547 mm[Hg]Lacey Damico MD Work Phone: [facility]07-12-2023 13:00-0400 Body jrpwqu621.48 cmCameron Dijoyjohn Other [employer] Other 07-12-2023 13:00-0400Body mass index (BMI) [Ratio] 26.52 kg/t4Ogzamsh Ditty Other [employer] Other 07-12-2023 13:00-0400Body cqaumy56.77 kgCameron [employer]itty Other [employer] Other 07-12-2023 13:00-0400Diastolic blood pcezyzyo87 mm[Hg] Malvin Ditty Other [employer] Other 07-12-2023 13:00-0400Systolic blood rgrvymve816 mm[Hg] Malvin Ditty Other [employer] Other 07-10-2023 09:05-0400Blood Pressure Location[place] [facility]07-10-2023 09:05-0400Diastolic blood qmmysymr05 mm[Hg]Morgan TILLMAN [facility]07-10-2023 09:05-0400Heart rate80 /minPatrick TILLMAN [facility]07-10-2023 09:05-0400Respiratory rate16 /minPatrick TILLMAN [facility]07-10-2023 09:05-0400Systolic blood wipmjrpb432 mm[Hg]Morgan TILLMAN [facility]07-02-2023 13:52-0400Diastolic blood asxqojmj97 mm[Hg]DO Conchis Urrutiaznick Work Phone: 1(594)[address] [place], [place] 1950607-02-2023 13:52-0400 Heart rate85 /minDO Conchis Petznick Work Phone: 1(655)[address] [place], [place] 1950607-02-2023 13:52-0400 Respiratory rate16 /minDO Conchis Petznick Work Phone: 1(279)[address] [place], [place] 1950607-02-2023 13:52-0400 SaO2% (BldA) [Mass fraction]99 %DO Conchis Petznick Work Phone: 1(783)[address] [place], [place] 1950607-02-2023 13:52-0400 Systolic blood ibheykou444 mm[Hg]DO Conchis Petznick Work Phone: 1(053)[address] [place], [place] 1950607-02-2023 12:40-0400 Body .48 cmDO Conchis Petznick Work Phone: 1(406)[address] [place], [place] 1950607-02-2023 12:40-0400 Body .03 kgDO Conchis Petznick Work Phone: 2(537)[address] [place], [place] 1950607-02-2023 12:34-0400 Body xaeiwpurvee00 [degF]DO Conchis Petznick Work Phone: [facility]04-03-2023 14:00-0400 Body doexmm592.48 cmRgianluca Chayaner Other [employer] Other 04-03-2023 14:00-0400Diastolic blood jawhiwar18 mm[Hg] Filemon Scovanner Other [facility] [employer] Other 04-03-2023 14:00-0400Systolic blood mm[Hg] Filemon Scovanner Other [facility] [employer] Other 11-07-2022 08:11-0500Body baxfco667.48 cmMatthew C Petznick Work Phone: mp498-6443RN-Eblqm [facility] 250 DO Work Phone: 1(944) 204-697511-07-2022 08:11-0500Body mass index (BMI) [Ratio] 27.25 kg/m1Jbrpmma C Petznick Work Phone: mp519-9849VK-Cwllv [facility] 250 DO Work Phone: 1(644) 281-460411-07-2022 08:11-0500Body surface area Derived from formula1.69 l1Orjrydd C Petznick Work Phone: mp494-6417JA-Taasg [facility] 250 DO Work Phone: 1(819) 629-136611-07-2022 08:11-0500Body .59 kgMatthew C Petznick Work Phone: mp520-1225JZ-Knddu [facility] 250 DO Work Phone: 1(874) 513-593011-07-2022 08:11-0500Diastolic blood mm[Hg] Conchis Sheikh Petznick Work Phone: mp568-6353OH-Oqfsr [facility] 250 DO Work Phone: 1(530) 975-608411-07-2022 08:11-0500Heart rate76 /minMattselenew Kori Zamora Work Phone: mp118-9505AP-Qadpz [facility] DO Work Phone: 1(736) 209-451111-07-2022 08:11-0500Systolic blood vngtwmsu151 mm[Hg] Conchis Zamora Work Phone: mp501-2059XA-Svqwm [facility] DO Work Phone: 1(689) 141-212607-15-2022 08:32-0400Blood Pressure LocationPatrick [employer] [facility] 07-15-2022 08:32-0400Diastolic blood floabzil15 mm[Hg] Morgan [employer] [facility] [place] 07-15-2022 08:32-0400Heart rate64 /minPanetTALKk [employer] [facility] [place] 07-15-2022 08:32-0400Respiratory rate16 /minPatrick [employer] [facility] [place] 07-15-2022 08:32-0400Systolic blood ysfsujsr186 mm[Hg] Morgan [employer] [facility] [place] 02-08-2022 10:00-0500Body umaqqm085.48 cmCamerdelbert Westbrook Other [employer] Other 02-08-2022 10:00-0500Body mass index (BMI) [Ratio] 26.52 kg/j2Uzgdvvi [employer] Other [employer] Other 02-08-2022 10:00-0500Body tzniit56.77 kgCamdanny Westbrook Other [employer] Other 02-08-2022 10:00-0500Diastolic blood teluwygo34 mm[Hg] Malvin Westbrook Other [employer] Other 02-08-2022 10:00-0500Systolic blood bmqhanmx306 mm[Hg] Malvin Westbrook Other [facility] [employer] Other 11-22-2021 08:59-0500Body xahobg716.48 cmMatthew C Petznick Work Phone: mp304-1512LF-Qwurv [facility] 250 DO Work Phone: 1(317) 425-274811-22-2021 08:59-0500Body mass index (BMI) [Ratio] 26.52 kg/y2Kubefvc C Petznick Work Phone: mp064-6472SB-Cboeu [facility] 250 DO Work Phone: 1(205) 481-454311-22-2021 08:59-0500Body surface area Derived from formula1.67 k1Cseulhy C Petznick Work Phone: mp126-6366WT-Aites [facility] 250 DO Work Phone: 1(740) 179-797511-22-2021 08:59-0500Body xncyui57.77 kgMatthew C Petznick Work Phone: mp891-9830OJ-Lsqmu [facility] DO Work Phone: 1(984) 480-380611-22-2021 08:59-0500Diastolic blood skeljsef97 mm[Hg] Conchis Kori Petznick Work Phone: mp127-9324QP-Latwf [facility] DO Work Phone: 1(856) 442-105111-22-2021 08:59-0500Heart rate71 /minMatthew C Petznick Work Phone: mp386-4180BX-Himwc [facility] 250 DO Work Phone: 1(929) 618-249211-22-2021 08:59-0500Systolic blood ocxaormb295 mm[Hg] Conchis Zamora Work Phone: mp310-6386OL-Jsrhv [facility] DO Work Phone: Encounters Encounter DateEncounter TypeCare ProviderFacilityStart: 05-12-2025 End: 72-01-6451Hpqftx flowsheetCorey Aziza DO Work Phone: no [place] OBGYNStart: 05-12-2025 End: 72-91-4608Xahlld flowsheetCorey Aziza DO Work Phone: NO [place] OBGYNStart: 05-12-2025 End: 65-57-2328Wmcsjuf encounter procedureCorey Aziza DO Work Phone: [facility] HealthcareStart: 05-12-2025 End: 18-81-5246Crcggxyi preventive med est patient 65yrs& olderCorey Aziza DO Work Phone: noms [place] OBGYNComment on above:Well woman exam with routine gynecological exam; Breast cancer screening by mammogram; Postmenopausal state; Chronic left hip painStart: 02-16-2025 End: 62-38-4387Lrupls flowsheetMatthew C Petznick DO Work Phone: [facility] 230Start: 02-16-2025 End: 81-55-4458Qoccdp flowsheetMatthew C Petznick DO Work Phone: NORL [facility] 230Start: 02-16-2025 End: 53-17-2348Afsepb outpatient visit 15 minutesMatthew C Petznick DO Work Phone: [facility] 230Comment on above: Greater trochanteric bursitis, left (Primary Dx); Left hip painStart: 02-16-2025 End: 61-71-8094wopkhcuwyuXKDPCCB C PETZNICKNot AvailableStart: 02-06-2025 End: 36-03-9470Snntgg flowsheetMatthew C Petznick DO Work Phone: noms [facility] 230Start: 02-06-2025 End: 71-12-4433Ofzkkm flowsheetMatthew C Petznick DO Work Phone: noms [facility] 230Start: 02-06-2025 End: 38-83-9613Axgvxm outpatient visit 15 minutesMatthew C Petznick DO Work Phone: noms [facility] 230Comment on above:Left foot pain (Primary Dx); Dukes's esophagus with dysplasia; Pes cavus; Greater trochanteric bursitis, leftStart: 02-06-2025 End: 90-83-9004umeclecxmqUVPKURH C PETZNICKNot AvailableStart: 12-12-2024 End: 15-32-3198Uxuxuwkmf Result EncounterGeneric External Data ProviderNOMS External Department UnsolicitedStart: 12-12-2024 End: 94-44-0268Kwhovvaed Result EncounterGeneric External Data ProviderNOMS External Department UnsolicitedStart: 12-12-2024 End: 35-30-5249Oqamqjqemd hospital visit by physicianEmerita Reveles250a [place] [facility] HealthComment on above:Palpitations; PVC (premature ventricular contraction); CLAROS (dyspnea on exertion); Mixed hyperlipidemia; Family history of heart diseaseStart: 12-12-2024 End: 90-22-4117mlozibsikhXSTDKAGrand [facility] Start: 11-25-2024 End: 74-01-9892tipznbtafqTJZEMGS C PETZNICKNot AvailableStart: 11-20-2024 End: 42-48-3900octyljacqrNYTFVVTaylor [facility] Hospital AmbulatoryStart: 11-20-2024 End: 17-29-8064Tdiwho outpatient visit 25 minutesLacey Damico MD Work Phone: uh [facility]burgComment on above:Essential (primary) hypertension; Palpitations; PVC (premature ventricular contraction); CLAROS (dyspnea on exertion); Mixed hyperlipidemia; Family history of heart disease; NAS (acute kidney injury); BMI 26.0-26.9,adult; Former smokerStart: 11-03-2024 End: 79-09-8358Dauife flowsheetMatthew C Petznick DO Work Phone: [phone] FM 230Start: 11-03-2024 End: 61-61-3043Cuxvcw flowsheetMatthew C Petznick DO Work Phone: [phone] FM 230Start: 11-03-2024 End: 65-31-6978wdokyntgclGWOYBRU C PETZNICKNot AvailableStart: 11-03-2024 End: 69-20-0474Bnzaiqc encounter procedureMatthew C Petznick DO Work Phone: [facility] FM 230Comment on above:Routine general medical examination at a health care facility (Primary Dx); Impaired renal function; Age-related osteoporosis without current pathological fracture (CMS/HCC); Anxiety; Eosinophilic esophagitis; Essential hypertension (CMS/HCC); Mixed hyperlipidemia (CMS/HCC)Start: 11-03-2024 End: 83-75-3191Grvavzg encounter statusMatthew C Petznick DO Work Phone: [facility] Work Phone: Start: 10-17-2024 End: 51-76-5831Rkgwud flowsheetMatthew C Petznick DO Work Phone: [phone] FM 230Start: 10-17-2024 End: 92-38-0739Vdbcpx flowsheetMatthew C Petznick DO Work Phone: [phone] FM 230Start: 10-17-2024 End: 50-88-1668ixntinydtrZLAHARJ C PETZNICKNot AvailableStart: 10-17-2024 End: 86-42-0583Ucqcky outpatient visit 25 minutesMatthew C Petznick DO Work Phone: [phone] FM 230Comment on above:Greater trochanteric bursitis, left (Primary Dx); Left hip pain; Tongue pain; Chronic fatigue; Vitamin D deficiencyStart: 10-02-2024 End: 85-90-3017Ktynmr outpatient visit 15 minutesTasha Zamora DO Work Phone: [facility] FM 230Comment on above:Acute bronchitis, unspecified organism (Primary Dx)Start: 10-02-2024 End: 44-54-3031ugsyrmaeiuKCQRNSL M PETZNICKNot AvailableStart: 09-09-2024 End: 50-91-6528WqqckljvdOftzoao J Martinez PT Work Phone: [facility] SWS PTComment on above:Cervicalgia (Primary Dx); Balance disorderStart: 08-13-2024 End: 91-02-4334ZjwwcrxvoPahucgn J Martinez PT Work Phone: [facility] SWS PTComment on above:Cervicalgia (Primary Dx); Balance disorderStart: 08-04-2024 End: 38-51-7198Jsuvvj Sweteie Canales PT Work Phone: [facility] SWS PTStart: 08-04-2024 End: 17-80-0538Ucxnjw Sweetie Canales PT Work Phone: [facility] SWS PTStart: 08-04-2024 End: 67-66-8170FusplhzkxbGjdqfjm J Martinez PT Work Phone: [facility] SWS PTComment on above:Cervicalgia (Primary Dx); Balance disorderStart: 07-04-2024 End: 83-26-6103Syxytnyww encounterTasha Zamora DO Work Phone: [facility] FM 230Start: 06-30-2024 End: 38-60-9944nfqqeiybjrRflyulv J DittyFacility:[facility] Centertart: 39-79-4063pjuxvagkfpQzwwqcj R WATERSFacility:ELZBIETA BellevueStart: 06-11-2024 End: 62-78-6411Jymsjq flowsheetJrRosalba Mcclellan DO Work Phone: [facility] ORTHOStart: 06-11-2024 End: 94-17-8009Wfswip flowsheetJr. Cherie Mcclellan DO Work Phone: [facility] SWS ORTHOStart: 06-11-2024 End: 90-48-7043axvlzxzipyQI., CHERIE MCCLELLANNot AvailableStart: 06-11-2024 End: 04-10-0397Lwtjwg outpatient visit 10 minutesJr. Cherie Mcclellan DO Work Phone: [facility] ORTHOComment on above:S/P arthroscopy of right shoulder (Primary Dx)Start: 05-21-2024 End: 42-90-0077Hlmicxxnj Result EncounterCorey Aziza DO Work Phone: [facility] External Department UnsolicitedStart: 05-21-2024 End: 45-24-1567Udouivdlk Result EncounterCorey Aziza DO Work Phone: noms External Department UnsolicitedStart: 05-19-2024 End: 65-23-7350Mibrvxwrw Result EncounterCorey Aziza DO Work Phone: noms External Department UnsolicitedStart: 05-19-2024 End: 93-23-6131Kdoxxcgsj Result EncounterCorey Aziza DO Work Phone: noms External Department UnsolicitedStart: 05-16-2024 End: 81-90-2514Ihhxoe Thom Perry CAMILONOMS CI PTStart: 05-16-2024 End: 75-85-5168Dhotyi flowsheetKrishan Perry CAMILONOMS CI PTStart: 05-16-2024 End: 94-34-0543dsgizzicinDdyoppe Lawrence PTANOMS CI PTComment on above:Right shoulder pain, unspecified chronicity (Primary Dx); S/P arthroscopy of right shoulderStart: 05-14-2024 End: 96-89-9469Trxwhh Thom Perry PTANOMS CI PTStart: 05-14-2024 End: 01-64-6608Mnpryn luiheetKrishan Perry CAMILONOMS CI PTStart: 05-14-2024 End: 71-00-3707Gxfhhns encounter procedureNov[facility] Gastroenterology Work Phone: Start: 05-14-2024 End: 45-35-3023kcpvrtxtdsKWMPMXE LAWRENCENot AvailableStart: 05-14-2024 End: 30-01-7144zimechxwgvBxtaxby Orlando CAMILONOMS HealthcareComment on above: Right shoulder pain, unspecified chronicity (Primary Dx); S/P arthroscopy of right shoulderStart: 05-12-2024 End: 53-38-7560ubeelytafjDQGWUXGarnet Health Medical Center AmbulatoryStart: 05-12-2024 End: 74-54-8856Ipsesf outpatient visit 25 minutesLacey Damico MD Work Phone: [facility] EastComment on above:Essential hypertension; Palpitations; Mixed hyperlipidemia; Medication course changed; BMI 26.0-26.9,adult; Former smokerStart: 05-09-2024 End: 30-28-5380Cpikfv Yamilkanevin Orlando CAMILOCHEL CI PTStart: 05-09-2024 End: 25-64-1976Cluhso yaHenrytonionevin Orlando COREY CI PTStart: 05-09-2024 End: 18-55-1636Iqbmiigpu Result EncounterCorey Aziza HERNÁNDEZ Work Phone: noms External Department UnsolicitedStart: 05-09-2024 End: 95-72-6293qrlehxhqqaAtwkbfa Lawrence CAMILOCHEL CI PTComment on above:Right shoulder pain, unspecified chronicity (Primary Dx); S/P arthroscopy of right shoulderStart: 05-05-2024 End: 70-53-7305Fhnftw Thom Perry CAMILOCHEL CI PTStart: 05-05-2024 End: 70-79-8417Uiknbm yaHenrytonionevin Orlando COREY CI PTStart: 05-05-2024 End: 06-61-8922zwluotpddlVqmliyj Lawrence CAMILOCHEL CI PTComment on above:S/P arthroscopy of right shoulder (Primary Dx); Right shoulder pain, unspecified chronicityStart: 05-02-2024 End: 55-80-7416Jblxpp flowsheetSmisael Starr PTNOMS CI PTStart: 05-02-2024 End: 40-73-8394Hxyrah flowsheetSammantkourtney Starr PTNOMS CI PTStart: 05-02-2024 End: 19-28-2031knbqnmyuaoKjrumvrjp Schneider PTNOMS CI PTComment on above:S/P arthroscopy of right shoulder (Primary Dx); Right shoulder pain, unspecified chronicityStart: 04-30-2024 End: 93-02-5914Prjcgv Thom Perry PTANO CI PTStart: 04-30-2024 End: 81-14-2992Bikukv Thom Perry PTANO CI PTStart: 04-30-2024 End: 29-47-4380qiadyftrfdQsdsvhn Lawrence PTANO CI PTComment on above:S/P arthroscopy of right shoulder (Primary Dx); Right shoulder pain, unspecified chronicityStart: 04-25-2024 End: 74-15-6224Fmhrpv Thom Perry PTANO CI PTStart: 04-25-2024 End: 70-86-5628Uvrcux Thom Perry PTANO CI PTStart: 04-25-2024 End: 56-10-8860pmtwfqmcjhKkcigry Lawrence PTANO CI PTComment on above:S/P arthroscopy of right shoulder (Primary Dx); Right shoulder pain, unspecified chronicityStart: 04-24-2024 End: 50-15-6799Vmdttjnua Result EncounterCorey Aziza DO Work Phone: noms External Department UnsolicitedStart: 04-24-2024 End: 24-74-6331Momcucztn Result EncounterCorey Aziza DO Work Phone: noms External Department UnsolicitedStart: 04-24-2024 End: 92-98-1049Tsynokx encounter procedureCorey Aziza DO Work Phone: [facility] Work Phone: Start: 04-24-2024 End: 31-28-9490Wpyeotnz preventive med est patient 65yrs& olderCorey Aziza DO Work Phone: noms BCP OBComment on above:Well woman exam with routine gynecological exam; Breast cancer screening by mammogram; Postmenopausal state; Stomach pain; Pelvic pain in femaleStart: 04-24-2024 End: 44-83-2825qsfhyhrrlvZHIEI FAZIONot AvailableStart: 04-23-2024 End: 40-70-7312Bekhqj flowsheetJr. Cherie Kori Vy DO Work Phone: [facility] ORTHOStart: 04-23-2024 End: 74-42-8378Agobxi flowsheetJr. Cherie Mcclellan DO Work Phone: [facility] SWS ORTHOStart: 04-23-2024 End: 91-73-4106iiczctrwzfIV., CHERIE Kori SUZETTEJRNot AvailableStart: 04-23-2024 End: 58-36-3760Tnkylf follow up visit related to original pxJr. Cherie Mcclellan DO Work Phone: [facility] SWS ORTHOComment on above:S/P arthroscopy of right shoulder (Primary Dx); Internal derangement of right shoulderStart: 04-22-2024 End: 22-77-3422bezevkggtoCbfztx X OrzechFacility:EU BellevueStart: 04-22-2024 End: 06-02-7738Lhwzpdf encounter procedureAurora X Orzech [facility] start: 04-18-2024 End: 52-57-0002prjbtukewdKtmupis R WATERSFacility:EU BellevueStart: 04-18-2024 End: 39-98-4513Pyfkodb encounter procedurePatrick Dallas TILLMAN [facility] start: 04-17-2024 End: 84-05-7626Uguino flowsheetKrishan NICOLE CI PTStart: 04-17-2024 End: 56-04-1085Yzlwun flowsKimi NICOLE CI PTStart: 04-17-2024 End: 76-57-2051yydhqzebpyMeguhih Lawrence PTANOMS CI PTComment on above:S/P arthroscopy of right shoulder (Primary Dx); Right shoulder pain, unspecified chronicityStart: 04-14-2024 End: 48-39-8988Qieuiwn encounter procedureMaarmando Zamora DO Work Phone: [facility] FM 230Comment on above:Routine general medical examination at a health care facility (Primary Dx); Mitral valve prolapse; Dukes's esophagus with dysplasia; Gastroesophageal reflux disease with esophagitis without hemorrhage; Essential hypertension (CMS/HCC); Mixed hyperlipidemia (CMS/HCC); Anxiety; Age-related osteoporosis without current pathological fracture (CMS/HCC); Irritation of eyelidStart: 04-14-2024 End: 72-62-1446Ricbjzz encounter statusMaarmando Zamora DO Work Phone: [facility] Work Phone: Start: 04-14-2024 End: 54-15-3672lnqkrgmhaqBAHGFPZ C PETZNICKNot AvailableStart: 04-14-2024 End: 86-25-7757icptrrimdcMhiawtj Lawrence PTANOMS CI PTComment on above:S/P arthroscopy of right shoulder (Primary Dx); Right shoulder pain, unspecified chronicityStart: 04-10-2024 End: 75-60-7896Bpkkap flowsheetSammantha Starr PTNOMS CI PTStart: 04-10-2024 End: 39-09-9607Cryucw flowsheetSammantha Starr PTNOMS CI PTStart: 04-10-2024 End: 91-30-6058fjityrqvuvUdbrorlef Starr PTNOMS CI PTComment on above:S/P arthroscopy of right shoulder (Primary Dx); Right shoulder pain, unspecified chronicityStart: 04-07-2024 End: 72-53-3628Hjwend Thom NICOLE CI PTStart: 04-07-2024 End: 36-08-8773Qxfeqo Thom Perry PTANOMS CI PTStart: 04-07-2024 End: 12-70-5395mqwabfrbkzHpoxskpEligio Perry PTANO CI PTComment on above:S/P arthroscopy of right shoulder (Primary Dx); Right shoulder pain, unspecified chronicityStart: 04-03-2024 End: 06-11-5238atqdhymahiLqnveqgEligio NICOLE CI PTComment on above:S/P arthroscopy of right shoulder (Primary Dx); Right shoulder pain, unspecified chronicityStart: 03-31-2024 End: 56-61-7754Smuqgx Thom Perry PTANOMS CI PTStart: 03-31-2024 End: 65-07-6959Xepcbk Thom NICOLE CI PTStart: 03-31-2024 End: 37-71-8442iytgczsbbzWfcblhtEligio Perry PTANO CI PTComment on above:S/P arthroscopy of right shoulder (Primary Dx); Right shoulder pain, unspecified chronicityStart: 03-27-2024 End: 37-78-7901Uvzccm Toshia Rahman PTANOMS CI PTStart: 03-27-2024 End: 16-27-8476Axljjd Toshia Rahman PTANOMS CI PTStart: 03-27-2024 End: 49-06-4743pythrrjxahLgzzfveg Brink PTANOMS CI PTComment on above:S/P arthroscopy of right shoulder (Primary Dx); Right shoulder pain, unspecified chronicityStart: 03-24-2024 End: 05-80-7612Guqjqp Thom Perry PTANOMS CI PTStart: 03-24-2024 End: 77-15-0628Iztmlp Thom NICOLE CI PTStart: 03-24-2024 End: 98-60-3940utlxuowmtuLjuuwzzEligio Perry PTANO CI PTComment on above:S/P arthroscopy of right shoulder (Primary Dx); Right shoulder pain, unspecified chronicityStart: 03-20-2024 End: 22-03-4294ysvmxglzcaBeyzxhpma Schneider PTNOMS CI PTComment on above:S/P arthroscopy of right shoulder (Primary Dx); Right shoulder pain, unspecified chronicityStart: 03-17-2024 End: 72-52-3067Qukofg Thom NICOLE CI PTStart: 03-17-2024 End: 31-37-1856Ohlkkh Thom NICOLE CI PTStart: 03-17-2024 End: 04-43-1063zuwclzdftnJxynvdn Lawrence PTANOMS CI PTComment on above:S/P arthroscopy of right shoulder (Primary Dx); Right shoulder pain, unspecified chronicityStart: 03-13-2024 End: 63-78-4542egxxsmxdylCbphltsSg NICOLE CI PTComment on above:S/P arthroscopy of right shoulder (Primary Dx); Right shoulder pain, unspecified chronicityStart: 03-12-2024 End: 16-66-4639Hwvgax flowsheetJr. Cherie Mcclellan DO Work Phone: [facility] SWS ORTHOStart: 03-12-2024 End: 62-97-4598Yjnjlu flowsheetJr. Cherie Mcclellan DO Work Phone: [facility] ORTHOStart: 03-12-2024 End: 66-57-5865Xtfmkb follow up visit related to original pxJr. Cherie Mcclellan DO Work Phone: [facility] SWS ORTHOComment on above:S/P arthroscopy of right shoulder (Primary Dx)Start: 03-12-2024 End: 87-44-3257kitngdqbvrRO., CHERIE MCCLELLANNot AvailableStart: 03-11-2024 End: 21-92-0344Mpmcvs flowsheetSammantha Starr PTNOMS CI PTStart: 03-11-2024 End: 05-00-2413Rcvxdv flowsheetSammantha Starr PTNOMS CI PTStart: 03-11-2024 End: 07-50-4729pfehusjhxsQpxiwplwt Starr PTNOMS CI PTComment on above:S/P arthroscopy of right shoulder (Primary Dx); Right shoulder pain, unspecified chronicityStart: 03-07-2024 End: 94-14-1702Eizagx Thom NICOLE CI PTStart: 03-07-2024 End: 62-63-8739Grccmu Thom NICOLE CI PTStart: 03-07-2024 End: 57-51-2301qrvcypdqmtKjjlwcbSg NICOLE CI PTComment on above:S/P arthroscopy of right shoulder (Primary Dx); Right shoulder pain, unspecified chronicityStart: 03-05-2024 End: 01-67-0221Nmmujr Thom NICOLE CI PTStart: 03-05-2024 End: 99-74-8976Iqcagl Thom NICOLE CI PTStart: 03-05-2024 End: 86-48-3954dcdxgqdxcyYqirhvgSg NICOLE CI PTComment on above:S/P arthroscopy of right shoulder (Primary Dx); Right shoulder pain, unspecified chronicityStart: 02-28-2024 End: 41-18-8767Aebeie Thom NICOLE CI PTStart: 02-28-2024 End: 70-43-9344Dlgjfb Thom NICOLE CI PTStart: 02-28-2024 End: 29-28-2267saxhkylqqgIyplcgqSg NICOLE CI PTComment on above:S/P arthroscopy of right shoulder (Primary Dx); Right shoulder pain, unspecified chronicityStart: 02-26-2024 End: 98-84-0143Gjsouz flowsheetSammantha Starr PTNOMS CI PTStart: 02-26-2024 End: 47-24-3575Nbxikz flowsheetSammantha Starr PTNOMS CI PTStart: 02-26-2024 End: 11-42-1641seaylbrdocPensngwck Starr PTNOMS CI PTComment on above:S/P arthroscopy of right shoulder (Primary Dx); Right shoulder pain, unspecified chronicityStart: 02-22-2024 End: 48-17-2509vfcchgebakNPMVDGJ LAWRENCENot AvailableStart: 02-19-2024 End: 23-17-2670djnrnmurhvPRRPOUS KELBLEYNot AvailableStart: 05-10-2023 End: 82-44-5169Lqqmlb outpatient visit 15 minutesLacey Damico MD Work Phone: [facility] on above:Essential hypertension; Mixed hyperlipidemia; Palpitations; BMI 26.0-26.9,adultStart: 01-17-2023 End: 56-69-9479docsuvsxvbRcrgmzt Ditty Other nort [employer] Other Start: 92-04-1796Mpxihej encounter procedureCameron DijoyyLEEG GastroenterologyStart: 01-15-2023 End: 95-64-6563Hemaiuo encounter procedureMorgan TILLMAN [facility] start: 01-07-2023 End: 67-81-4281Bgaxthayi department patient visitDO Conchis Zamora Work Phone: [facility] Work Phone: Start: 61-07-8251bgvorjqqcrWC GALINA BECERRILFacility:H1 Start: 10-09-2022 End: 52-21-0651wikhbvizxzXwkb Scovanner Other [facility] [employer] Other Start: 70-65-5798Pqwgms outpatient visit 15 minutes Filemon Benitez GastroenterologyStart: 10-02-2022 End: 67-55-0035ogencrkqbtJyvssjn Ditty Other [employer] Other Start: 85-17-3286Gzwjzabux encounterCameron DittyFPG GastroenterologyStart: 09-11-2022 End: 78-17-4695Vob Drop offMorgan TILLMAN [facility] Start: 08-04-2022 End: 22-96-1095gcitxxxtxcOHOFDRP PETZNICKFacility:S2Fqhfr: 07-04-2022 End: 56-67-8826obivmocwxtWckkmtb Anatty Other Nort [employer] Other Start: 87-08-4665Wsqtixelv encounterCameron AnattyFPG GastroenterologyStart: 12-66-4574Xzpcb UpdateMatthew C Petznick Work Phone: [phone]-Hwojw [facility] 250 DO Work Phone: Start: 71-35-7019nmzrjabuljCy. Samantha Robert Facility:[id number]: 76-24-9789Nsufrv outpatient visit 15 minutesMatthew C Petznick Work Phone: [phone]-FkywrBemidji Medical Centery 250 DO Work Phone: Start: 84-46-5591clhulhmgbqCLW Samantha Robert Facility:[id number]: 04-18-2022 End: 17-13-4820cxfhricuwyWS TYLER AZIZA .Facility:N7Fqxtf: 04-15-2022 End: 76-55-5796seohgwcivwZFZZPZU PETZNICKFacility:L7Kfjej: 04-10-2022 End: 64-74-2727kkmbzkkuxbNJ TYLER AZIZA .Facility:K2Owpoo: 01-20-2022 End: 82-77-6984Jxbndsn encounter procedurePatriccatracho TILLMAN [facility] Lilia start: 48-03-4998Zk RenewalMatthew C Petznick Work Phone: [facility] 250 DO Work Phone: Start: 11-29-2021 End: 82-62-7767Woy Drop Devan Valenzuela [facility] Start: 11-29-2021 End: 78-82-7964Sjifatu encounter procedurePatrick Dallas TILLMAN [facility] Lilia start: 56-62-0242Qfdsuk OnlyGasper Hamilton MD Work Phone: CardiologyComment on above:Sleep apnea, unspecified type (Primary Dx)Start: 10-19-2021 End: 68-31-2519sdukwaljuzLyotwael Ruthmann MD Work Phone: CardiologyComment on above:Heart palpitations (Primary Dx)Start: 10-19-2021 End: 04-54-4982Mdephsbvvdoq consultation with Ania Hamilton MD Work Phone: [facility] MAINStart: 24-29-5112Yzifp [facility] Main Work Phone: NeurologyComment on above:HSAT Check In (Adult)Start: 50-02-1468Ty RenewalConchis Zamroa Work Phone: [phone]-Mtxzc [facility] 250 DO Work Phone: Start: 08-16-2021 End: 92-65-5756spmduhwlniIcnetqh Ditty Other [place] [employer] Other Start: 75-10-2274Dwjlzaa encounter procedureCameron DittyFPG GastroenterologyStart: 50-19-1643Ng RenewalConchis Zamora Work Phone: [phone]-Totap [facility] 250 DO Work Phone: Start: 14-69-5278Vbsfoe outpatient visit 25 minutes Conchis Zamora Work Phone: [phone]-Qlpkf [facility] 250 DO Work Phone: Start: 15-97-7898laolopyiovQkRosalba ZamoraFacility:[id number]: 63-72-6236Ed RenewalMichael Lyster DO Work Phone: [phone]-Rkary [facility] 250 DO Work Phone: Echocardiogram normalMatthew C Petznick Work Phone: [phone]-Tsdqx [facility] 250 DO Work Phone: Radionuclide heart study normalMatthew C Petznick Work Phone: [phone]-Vcedp [facility] 250 DO Work Phone: Procedures DateProcedureProcedure DetailPerforming ClinicianStart: 02-41-6343Gyaln foot complete minimum 3 viewsMatthew C Petznick DO Work Phone: Start: 04-04-2966Nu strs tst xers&/or rx cont ecg trcg onlyGemoreno Damico MD Work Phone: Start: 96-83-8804DEJRPDO STRESS TEST EXERCISE (CARD) Generic External Data ProviderStart: 54-95-7854Wapmj metabolic panel calcium totalMatthew C Petznick DO Work Phone: Start: 30-80-0670SNLZ + TRANSFERRIN + TIBCMatthew C Petznick DO Work Phone: Start: 90-74-2521FE DEXA AXIAL SKELETONCorey Aziza DO Work Phone: Start: 48-58-3464BA TOMOSYNTHESIS SCREENING BICorey Aziza DO Work Phone: Start: 26-80-2938FdmfihwglepBw. Stepanic DO Work Phone: Start: 39-97-9920PY PELVIS W/ TRANSVAGINALCorey Aziza DO Work Phone: Start: 32-71-0579Hfslx dip stick/tablet rgnt non-auto w/o micrscpCorey Aziza DO Work Phone: Start: 36-58-6974UNO,APTIMA HPV,AGE GDLNCorey Fondu Work Phone: Start: 56-69-8126Lnikv 1996 panel - Serum or Plasma Lacey Damico MD Work Phone: Start: 60-31-4182TauokugdrkuUkdvhqunw Schneider PT Start: 56-36-8887Cfbh cerv/vag auto thin layer prep mnl screenCorey Fondu Work Phone: Start: 43-48-5381IM of head without contrastDO Conchis Zamora Work Phone: Start: 27-08-3463VvxfhfltkwpPfcyae Mohan MD Work Phone: Start: 15-46-4630Sqsuepin of urethraPatrick [employer] Start: 77-32-2485Uwuiutxm of urethraPatrick TILLMAN Start: 04-45-8916YjzwxfsquonosikpwpxiacasauEvoauqk [employer] Start: 10-21-2018 End: 73-24-0933YjnahyutrmyZzjizhybs Schneider PTStart: 96-87-9668Jdqdxzmt of urethraPatrick TILLMAN Start: 57-92-5181Nraevpenxbsqbcnlj with dilation of urethral stricturePatrick TILLMAN Start: 52-87-4787Ptxia depression screening assessment Gasper Hamilton MD Work Phone: Cesarean sectionMatthew C Petznick Work Phone: Cesarean sectionPatrick TILLMAN LaparoscopyPatrick TILLMAN Repair of musculotendinous cuff of shoulderMatthew C Petznick Work Phone: Rotator cuff including muscles and tendons (body structure)Morgan TILLMAN TonsillectomyMatthew C Petznick Work Phone: TonsillectomyPatrick PRIMO Total colonoscopyMatthew Kori Zamora Work Phone: Plan of Treatment DateCare ActivityDetailAuthorStart: 16-54-3602Sndif panelLipid PanelSt. Rita's HospitalStart: 71-52-4066Hirxkkxvf for malignant neoplasm of colon NOM HealthcareStart: 05-20-2026 End: 83-65-5835Choyumi encounter utxgfentf46/12/2026 8:30 AM EST Procedure Visit THAD BRYSONN [address] [place] [id number] Tyler Ervin DO [address] [address] [facility] Lilia OBGYNStart: 05-12-2026 Medicare Annual Wellness (AWV)Medicare Annual Wellness (AWV)[facility] Start: 04-28-2026Medicare Annual Wellness (AWV)Medicare Annual Wellness (AWV) [facility] HealthcareStart: 06-08-2025 End: 48-31-9448Aljioie encounter bgsvcxijn38/01/2025 9:45 AM EST Office Visit [facility] [address] [facility] [address] [place] [address] Lacey Damico MD [address] [facility] [address] [place] [address] [facility]Start: 20-53-9114Ybqjafhww for malignant neoplasm of breastMammogramNOLA HealthcareStart: 05-12-2025 End: 02-61-1668OEH Skeletal system Views for bone densityDEXA bone density Imaging Routine Well woman exam with routine gynecological exam Postmenopausal state Expected: 05/12/2025 (Approximate), Expires: 05/12/2026[facility] Comment on above:Expected: 05/12/2025 (Approximate), Expires: 05/12/2026Start: 05-12-2025 End: 04-51-0592ZL Breast - bilateral ScreeningBilateral screening mammogram Imaging Routine Well woman exam with routine gynecological exam Breast cancer screening by mammogram Expected: 05/12/2025, Expires: 07/12/2026NOBarn[facility] Work Phone: comment on above:Expected: 05/12/2025, Expires: 07/12/2026Start: 05-12-2025 End: 18-16-6888Fcfjdah encounter procedureNOSPECIALTY [facility]ITAL [facility] OBStart: 04-30-2025 End: 12-73-8737Vznuwsc encounter monbjkmke88/23/2025 8:30 AM EDT Office Visit [facility] [address] [place] [address] Tyler Ervin, DO [address] [place], [place] [id number] [facility] OBStart: 10-17-2025Medicare Annual Wellness (AWV)Medicare Annual Wellness (AWV)[facility] HealthcareStart: 10-07-2025Medicare Annual Wellness (AWV)Medicare Annual Wellness (AWV)NOM HealthcareStart: 65-95-5788IZUJF-19 Vaccine ( season)COVID-19 Vaccine ( season)NOM HealthcareStart: 74-67-0875Jlfeaawpj vaccinationThe Rehabilitation Institute Start: 02-16-2025 End: 50-77-0191Kaujljv encounter ntvzuyvod93/11/2025 12:30 PM EDT Office [facility] [address] [place] [address] Conchis Zamora, [address] [place] [address] [facility] 230Comment on above:ArrivedStart: 02-06-2025 End: 70-47-4616Hlchdku encounter svsmhgdib12/01/2025 9:15 AM EDT Office Visit [facility] [address] [place] [address] Conchis Zamora, DO [address] [place] [address] 230Comment on above:ArrivedStart: 61-29-2333Ontztfklj vaccination Influenza Vaccine (#1)[facility]OMS HealthcareComment on above:Postponed from 03/09/2024 (Patient Refused)Start: 12-12-2024 End: 39-14-7196Ocfcoie encounter ddtdzsayz98/06/2025 10:15 AM EDT Appointment [address] [place] [address] [facility]: [facility] End: 00-84-4328Xkmjdpp encounter procedureWalker [facility] HospitalStart: 11-20-2024 End: 19-06-9520WC Heart Perfusion W stress and W radionuclide IVNuclear Stress Test Cardiac Nuclear Medicine Routine Palpitations PVC (premature ventricular contraction) CLAROS (dyspnea on exertion) Mixed hyperlipidemia Family history of heart disease Expected: 11/20/2024 (Approximate), Expires: 11/20/2025[facility] Service Area Work Phone: Comment on above:Expected: 11/20/2024 (Approximate), Expires: 11/20/2025Start: 11-10-2024 End: 03-62-1544Gdkrbvs encounter ihuefgana97/05/2025 9:00 AM EDT Office Visit [address] [place] [address] Lacey Damico MD [address] [facility] [address] [place] [address] [facility]: [facility]24 End: 10-64-2909xscquwqtrn00/28/2025 7:00 AM EST Treatment [facility] [address] [place] [id number] Ricardo Canales, PT [address] [place] [address] [facility] PTStart: 2024 End: 41-92-5055Pnejszw aminotransferase [Enzymatic activity/volume] in Serum or Plasma by With P-5'-PAlanine Aminotransferase Lab Routine Mixed hyperlipidemia Medication course changed Expected: 2024, Expires: 05/12/2025[facility] Work Phone: Comment on above:Expected: 2024, Expires: 05/12/2025Start: 2024 End: 66-86-1135Ijjcqaewy aminotransferase [Enzymatic activity/volume] in Serum or Plasma by With P-5'-PAspartate Aminotransferase Lab Routine Mixed hyperlipidemia Medication course changed Expected: 2024, Expires: 05/12/2025[facility] Work Phone: Comment on above:Expected: 2024, Expires: 05/12/2025Start: 2024 End: 17-66-1860Yrdzn metabolic 2000 panel - Serum or PlasmaBasic Metabolic Panel Lab Routine Essential hypertension Medication course changed Expected: 025, Expires: 05/12/2025[facility] Work Phone: Comment on above:Expected: 2024, Expires: 05/12/2025Start: 2024 End: 81-14-7503Yideq 1996 panel - Serum or PlasmaLipid Panel Lab Routine Mixed hyperlipidemia Medication course changed Expected: 2024, Expires: 05/12/2025[facility] Work Phone: Comment on above:Expected: 2024, Expires: 05/12/2025Start: 08-13-2024 End: 99-83-6158aokbqimxta94/05/2025 7:00 AM EST Treatment [facility] PT [address] [place] [address] Ricardo Canales, PT [address] [place] [address] [facility] PTStart: 07-04-2024 End: 78-02-9867Gavsqkf encounter ceqqtqmim84/27/2024 1:45 PM EST Office Visit [facility] FM [address] [place] [phone] Tasha Zamora, DO [address] [place] [address] [facility] FM 230Start: 06-11-2024 End: 26-13-7017Kfkprkq encounter gpsasbcpn89/04/2024 8:45 AM EST Office Visit [facility] ORTHO [address] [place] [address] Jr. Cherie Mcclellan, DO [address] [place] [address] [facility] ORTHOStart: 05-16-2024 End: 71-19-3254zeihsqwsuw03/08/2024 7:30 AM EST Treatment [facility] CI PT [address] [place] [address] Krishan Perry PTANOMS CI PTStart: 05-14-2024 End: 60-68-9782ihiyiplsqzOCQN CI PTStart: 05-12-2024 End: 12-78-6940Skxwatv encounter jbicnfnge65/04/2024 9:00 AM EST Office Visit [facility] [address] [facility] [address] [place] [phone] Lacey Damico MD [address] [facility] [address] [place] [address] [facility]: 05-[facility]2024 End: 28-89-3281Otplzfewcuunf metabolic 2000 panel - Serum or PlasmaComprehensive Metabolic Panel Lab Routine Essential hypertension Mixed hyperlipidemia Expected: 05/10/2024 (Approximate), Expires: 05/10/2024[facility] Service Area Work Phone: Comment on above:Expected: 05/10/2024 (Approximate), Expires: 05/10/2024Start: 05-10-2024 End: 57-54-6776Kvvho 1996 panel - Serum or PlasmaLipid Panel Lab Routine Essential hypertension Mixed hyperlipidemia Expected: 05/10/2024 (Approximate), Expires: 05/10/2024[facility] Work Phone: Comment on above:Expected: 05/10/2024 (Approximate), Expires: 05/10/2024Start: 05-09-2024 End: 75-45-6394lvjgvhsauk57/01/2024 7:30 AM EDT Treatment [facility] PT [address] [facility] [address] [place] [address] Krishan Perry PTANOMS CI PTStart: 05-08-2024 End: 74-96-5603Fhgtyeodzdmx / ancillary services bnrcaelstx91/31/2024 11:00 AM EDT Ancillary Procedure [facility] BCP OB [address] [facility] [address] [place] [phone] QHIF BCP OBStart: 05-05-2024 End: 68-89-7947harlblvoho76/28/2024 7:30 AM EDT Treatment [facility] CI PT [address] [facility] [address] [place] [address] Krishan Perry PTANOMS CI PTStart: 05-02-2024 End: 74-81-1611icpxxmsuzbTXAN CI PTComment on above:ArrivedStart: 04-30-2024 End: 42-93-3800shkjblqqtf64/23/2024 7:30 AM EDT Treatment [facility] CI PT [address] [facility] [address] [place] [address] Krishan Perry PTANOMS CI PTStart: 04-25-2024 End: 25-40-3621hnwkjkeoptWIDM CI PTStart: 04-24-2024 End: 71-85-1305YEX Skeletal system Views for bone densityDEXA bone density Imaging Routine Postmenopausal state Expected: 04/24/2024 (Approximate), Expires:04/24/2025[facility] HealthcareComment on above:Expected: 04/24/2024 (Approximate), Expires: 04/24/2025Start: 04-24-2024 End: 97-97-8610HV Breast - bilateral ScreeningBilateral screening mammogram Imaging Routine Breast cancer screening by mammogram Expected: 04/24/2024, Expires: 06/24/2025[facility] Work Phone: comment on above:Expected: 04/24/2024, Expires: 06/24/2025Start: 04-24-2024 End: 45-62-7662CX for pregnancyUS PELVIS-TRANSVAG IF INDICATED Imaging Routine Stomach pain Pelvic pain in female Expected: 04/24/2024 (Approximate), Expires: 04/24/2025[facility] HealthcareComment on above:Expected: 04/24/2024 (Approximate), Expires: 04/24/2025Start: 04-24-2024 End: 35-81-0970Hjwnbqr encounter iiocxhvga99/17/2024 8:30 AM EDT Office Visit [facility] OB [address] [facility] [place] [address] Tyler Ervin, DO [address] [facility] [place] [address] N[facility] BCP OBStart: 04-23-2024 End: 44-42-3602Ulbjbvl encounter guihftshn91/16/2024 8:45 AM EDT Office Visit [facility] ORTHO [address] [place] [address] Jr. Cherie Mcclellan, DO [address] [place] [address] [facility] SWS ORTHOStart: 04-21-2024 End: 90-79-8020sladwkzubf89/14/2024 7:30 AM EDT Treatment [facility] PT [address] [place] [address] Krishan Perry PTANOMS CI PTStart: 71-70-5559Ggewilcra for malignant neoplasm of breast MammogramNOMS HealthcareStart: 88-38-8429Xwzhxeqtl for osteoporosisBone Density [facility] CenterStart: 04-17-2024 End: 10-24-2396cwthyflsttSUGB CI PTComment on above:ArrivedStart: 04-14-2024 End: 33-77-8210Sajygoi encounter wtdqzivpk41/07/2024 9:00 AM EDT Office Visit [facility] [address] [place] [phone] Conchis Zamora DO [address] [place] [address] [facility] FM 230Start: 04-14-2024 End: 86-14-8831doatgnzodm18/07/2024 7:30 AM EDT Treatment [facility] PT [address] [place] [address] Krishan Perry PTANOMS CI PTStart: 10-04-2024Medicare Annual Wellness (AWV)Medicare Annual Wellness (AWV)[facility] HealthcareStart: 04-10-2024 End: 44-92-5395ocxbbfqrwm75/03/2024 8:00 AM EDT Treatment [facility] PT [address] [place] [address] Rain Starr PTNOMS CI PTStart: 04-07-2024 End: 68-38-8452yxhdlbycbg31/30/2024 7:30 AM EDT Treatment [facility] PT [address] [place] [address] Krishan Perry PTANOMS CI PTStart: 04-04-2024 End: 98-94-3807hqgjulyjvnXSUE CI PTStart: 04-03-2024 End: 32-21-9044osnpburvfk73/26/2024 8:00 AM EDT Treatment [facility] PT [address] [place] [address] Krishan Perry PTANOMS CI PTStart: 03-31-2024 End: 71-70-6828rksuwagnib52/23/2024 7:30 AM EDT Treatment [facility] PT [address] [place] [address] Krishan Perry PTANOMS CI PTStart: 03-27-2024 End: 44-99-6710eyjshewfxpOBDE CI PTStart: 03-24-2024 End: 31-71-6652gwzrruwextAUCH CI PTComment on above:S/P arthroscopy of right shoulder (Primary Dx); Right shoulder pain, unspecified chronicityStart: 03-20-2024 End: 56-22-3195zytlvglsea44/12/2024 8:00 AM EDT Treatment [facility] PT [address] [facility] [address] [place] [address] Rain Starr PTNOMS CI PTStart: 03-17-2024 End: 15-79-7396htkmvqbwon10/09/2024 8:00 AM EDT Treatment [facility] PT [address] [facility] [address] [place] [address] Krishan Perry PTANOMS CI PTStart: 03-13-2024 End: 20-57-1988lvncjepsts18/05/2024 8:00 AM EDT Treatment [facility] CI PT [address] [facility] [address] [place] [address] Krishan Perry PTANOMS CI PTStart: 03-12-2024 End: 23-26-1617Idakuui encounter /04/2024 8:45 AM EDT Office Visit [facility] ORTHO [address] [place] [address] Jr. Cherie Mcclellan, DO [address] [place] [address] [facility] SWS ORTHOStart: 03-11-2024 End: 79-00-7891bjiraaqtpb80/03/2024 8:00 AM EDT Treatment [facility] CI PT [address] [facility] [address] [place] [address] Rain Starr PTNOMS CI PTStart: 74-93-6882IMHKL-19 Vaccine ( season)COVID-19 Vaccine ()[facility]: 03-09-2024 COVID-19 Vaccine ()COVID-19 Vaccine () [facility]: 61-78-1580Xhehahzgx vaccinationInfluenza Vaccine (#1)[facility]: 03-07-2024 End: 12-85-8584ikzvwxaeow63/30/2024 7:30 AM EDT Treatment [facility] CI PT [address] [facility] [address] [place] [address] Krishan Perry PTANOMS CI PTStart: 03-05-2024 End: 65-72-9267ffmsuxrcej49/28/2024 8:00 AM EDT Treatment [facility] CI PT [address] [facility] [address] [place] [address] Krishan Perry PTANOMS CI PTStart: 02-28-2024 End: 37-79-7529vahbuqsknn59/22/2024 8:00 AM EDT Treatment [facility] CI PT [address] [facility] [place] [address] Krishan Perry PTANOMS CI PTStart: 34-91-5647USP, Provider: Lacey Damico, Status: Pen, Time: 9:00 AMFUV, Provider: Lacey Damico, Status: Pen, Time: 9:00 [place] [address] DO Work Phone: Start: 31-29-5509Sonqeddrp for malignant neoplasm of breastMammogramDoctors Hospital: 36-20-0773Wstpoppyn for osteoporosisBone Density ScanDoctors Hospital: 03-09-2023 Influenza vaccinationInfluenza Vaccine (#1)[facility] Start: 77-71-3912OVQ, Provider: Ricardo Christian, Status: Pen, Time: 1:45 PMFUV, Provider: Ricardo Christian, Status: Pen, Time: 1:45 PMMP-[facility] 250 DO Work Phone: Start: 50-08-6710FBGGW-19 Vaccine (6 - Additional dose for Soha series)COVID-19 Vaccine (6 - Additional dose for Soha series) [facility] HospitalStalachua: 74-18-8506CCAKVVW DIRECTIVE DISCUSSION ADVANCE DIRECTIVE DISCUSSIONAvita Health System Bucyrus Hospitaltart: 22-88-6957WSMA DENSITYBONE DENSITYAvita Health System Bucyrus Hospitaltart: 74-91-6331NFXDXYAXR AGE 65 AND OVER WITH 5YR LOOKBACK (#1)PNEUMOVAX AGE 65 AND OVER WITH 5YR LOOKBACK (#1)[facility] Start: 30-29-1929ERL, Provider: Ricardo Christian, Status: Pen, Time: 8:45 AMFUV, Provider: Ricardo Christian, Status: Pen, Time: 8:45 AMMP-[facility] 250 DO Work Phone: Start: 15-32-5067Guzzz depression screening assessment DEPRESSION SCREENINGAvita Health System Bucyrus Hospitaltart: 26-03-0052WCL High Risk: (Elderly (60+) or Population) (1 - Risk 60-74 years 1-dose series)RSV High Risk: (Elderly (60+) or Population) (1 - Risk 60-74 years 1-dose series) [facility]: 91-82-7261EQHCMEJQ VACCINE (1 of 2) SHINGRIX VACCINE (1 of 2)[facility]: 56-23-5665FEPBFORDL (FIT-DNA) COLOGUARD (FIT-DNA)[facility]: 12-47-1177QvbjhgrltlgSWKBIHFIWJK [facility]: 16-61-0642DPNHCEESLZ CANCER SCREENINGCOLORECTAL CANCER SCREENINGAvita Health System Bucy[facility] Hospitaltart: 37-56-9505NR COLONOGRAPHYCT COLONOGRAPHY [facility]: 51-64-4708VUSGEYVP SCREENDIABETES SCREENSt. [facility] Hospital Start: 48-03-4614DXJDC OCCULT BLOODFECAL OCCULT BLOODAvita Health System Bucyrus Hospitaltart: 53-38-9556ONDVJ SCREENLIPID SCREENAvita Health System Bucyrus Hospitaltart: 65-07-2899PJGUPVVDJTBOZ SIGMOIDOSCOPYAvita Health System Bucy[facility] Hospitaltart: 55-33-1858KqlvqwjewmhNJAEYCZRASfxhadbiw ClinicStart: 34-27-0582ZRiO/Tdap/Td Vaccines (1 - Tdap)DTaP/Tdap/Td Vaccines (1 - Tdap)[facility]: 24-63-5908Fezft microalbumin profileDTAP,TDAP,TD (1 - Tdap)[facility]: 05-08-7240EPXQOK PCP TEAM CHRONIC DISEASE VISITANNUAL PCP TEAM CHRONIC DISEASE VISITAvita Health System Bucyrus Hospitaltart: 77-81-3182JH CONTROLLED (<130/80)BP CONTROLLED (<130/80)[facility]: 84-03-6985Zuvwboxg mellitus screeningDiabetes ScreeningDoctors Hospital: 82-69-7324BRWHROWLJ C SCREENINGHEPATITIS C SCREENINGAvita Health System Bucy[facility] Hospitaltart: 18-50-1667Joydysbwu C screeningHepatitis C ScreeningDoctors Hospital: 60-05-9264UBV SCREENINGHIV SCREENINGAvita Health System Bucy[facility] Hospitaltart: 15-25-3834Zzyxf panelLipid PanelSt. Rita's Hospital Start: 02-10-1957Medicare Annual Wellness VisitMedicare Annual Wellness Visit (AWV)[facility]: 06-35-1709Jhnvjlatd for malignant neoplasm of colonSt. Rita's HospitalCBC W Auto Differential panel - BloodCBC and differential Lab Routine Routine general medical examination at a health care facility Ordered: 11/03/2024[facility] HealthcareComment on above:Ordered: 11/03/2024omprehensive metabolic 2000 panel - Serum or PlasmaComprehensive metabolic panel Lab Routine Routine general medical examination at a health care facility Ordered: 11/03/2024[facility] Work Phone: Comment on above:Ordered: 11/03/2024LIPID PANEL W/ CHOL/HDL RATIOLIPID PANEL W/ CHOL/HDL RATIO Lab Routine Routine general medical examination at a health care facility Ordered: 11/03/2024[facility] HealthcareComment on above:Ordered: 11/03/2024Microalbumin/Creatinine panel in random Urine Microalbumin / creatinine urine ratio Lab Routine Impaired renal function Ordered: 11/03/2024[facility] HealthcareComment on above:Ordered: 11/03/2024Patient EducationVertigo [facility] Work Phone: [facility] Work Phone: THIN PREP TIS PAP AND HR HPV DNATHIN PREP TIS PAP AND HR HPV DNA Pathology and Cytology Routine Well woman exam with routine gynecol ogical exam Ordered: 04/24/2024[facility] HealthcareComment on above:Ordered: 04/24/2024THIN PREP TIS PAP AND HR HPV DNATHIN PREP TIS PAP AND HR HPV DNA Pathology and Cytology Routine Well woman exam with routine gynecological exam Ordered: 05/12/2025[facility] HealthcareComment on above:Ordered: 05/12/2025Urinalysis complete panel - UrineUrinalysis with reflex microscopic Lab Routine [facility] Ordered: 11/03/2024[facility] HealthcareComment on above:Ordered: 11/03/2024[facility] Immunizations Immunization DateImmunizationNotesCare FmzkhpsiXfmevszo66-07-1094guerhtqgs virus vaccine, unspecified formulation[place] [facility]12-13-2022Influenza, injectable, Madin Hallie Canine Kidney, preservative free, quadrivalentLacey Damico MD Work Phone: [facility] Work Phone: [phone]nmrnb vaccine recombinantMatthew C Timbo Work Phone: [facility]05-03-2022Prevnar 20 0.5 ML Intramuscular Suspension Prefilled Syringe Conchis Zamora Work Phone: [facility]04-04-2022zoster vaccine recombinantMatthew C Timbo Work Phone: [facility]12-12-2021Pfizer-BioNTech COVID-19 Vacc 30 MCG/0.3ML Intramuscular SuspensionMatthew C Petznick Work Phone: [facility]12-10-2021influenza, injectable, quadrivalent, contains [facility]ativeSRivers[facility]12-08-2021influenza virus vaccine, unspecified formulationPatrick TILLMAN [facility]12-08-2021Influenza, injectable, Madin Carrington Canine Kidney, preservative free, quadrivalentMatthew C Petznick Work Phone: [phone]-[facility] 250 DO Work Phone: [phone]-HmoWMout COVID-19 Vacc 30 MCG/0.3ML Intramuscular SuspensionMatthew C Petznick Work Phone: [facility]03-26-2021SARS-CoV-2 (COVID-19) Ad26 vaccine, recombinantPatrick TILLMAN [facility] 03668723-07-6175Rrfkby-VgeASulo COVID-19 Vacc 30 MCG/0.3ML Intramuscular SuspensionMatthew C Petznick Work Phone: [facility]03-05-2021SARS-CoV-2 (COVID-19) Ad26 vaccine, recombinantPatrick TILLMAN [facility] 10310853-65-4666glgpepbkt virus vaccine, unspecified formulationAurora Orzech [facility]10-12-2020influenza, injectable, madin hallie canine kidney, preservative freeMatthew C Petznick Work Phone: [phone][facility]whT[facility] Hospital 250 DO Work Phone: [phone]wwzfmj virus vaccine, unspecified formulationPatrick [employer] [facility]12-13-2019Influenza, injectable, Madin Carrington Canine Kidney, quadrivalent with preservativeMatthew C Petznick Work Phone: [phone]-BqjbyTyler Hospital 250 DO Work Phone: [phone]lhj virus vaccine, unspecified formulationPatrick [employer] [facility]12-10-2018Influenza, injectable, Madin Hallie Canine Kidney, preservative free, quadrivalentMatthew C Petznick Work Phone: [phone]-[place]mufkRobert [place] [address] DO Work Phone: [phone]xbu toxoid, adsorbedMatthew C Petznick Work Phone: [facility] Payers DatePayer CategoryPayerPolicy [id number] 2023Medicare (Managed Care)..[id number] [id number] BLUE CROSS AND BLUE SHIELD [facility]BLUE ACCESS [id number] 2021-Present [phone] [place] [address] [id number] .[id number]3300-32-4319DidwwrhC2G2Y1 [id number] .16.840.2.876421.74722108-08-7836Yxuj-aqy95-87-3740 [id number] 2.16.840.1.917505.3.57[id number] 2.16.840.1.798580.3.579.2.05977-70-1859Tjqxgir34900945 2.16.840.1.368596.3.579.2.793199-30-2686Ecmuuqp7225640 2.16.840.1.997688.3.579.2.56673-05-1946Hyejhkj2358227 2.16.840.1.433186.3.579.2.21669-37-6488Frhlull6688019 2.16.840.1.713315.3.579.2.98619-33-2332Wesgaxw6969457 2.16.840.1.723880.3.579.2.33463-25-7219Qxdicwz6727008 2.16.840.1.445600.3.579.2.44441-14-5702Irjkdtn26898473 2.16.840.1.228253.3.579.2.73062-73-3919Pzcifit28460339 2.16840.1.495325.3.579.2.40480-84-8671Lrpanwt03043737 2.16.840.1.988777.3.579.2.28783-54-2703Wrbeaij65821933 2.16.840.1.752616.3.579.2.878685-66-0882Ymrhetp31729909 2.16.840.1.685336.3.579.2.971083-08-1688Yafspqa68924956 2.16.840.1.698966.3.579.2.157024-72-3034Cdnkkuw82750612 2.16.840.1.866346.3.579.2.201803-23-2154Xyczufh49153694 2.16.840.1.629718.3.579.2.448351-42-4746Pbdclzr656214439 2.16.840.1.998651.3.579.2.503993-56-7034Vhityvk337985989 2.16.840.1.536446.3.579.2.870207-61-7235Xcbtmah52264740 2.16840.1.153333.3.579.2.615073-93-1162Bfvbjec27448631 2.16840.1.197543.3.579.2.038474-39-1195Czqfusz41988279 2.840.1.439432.3.579.2.395558-93-0635Hsdklpn6396158 2.840.1.202941.3.579.2.379930-05-5329Mcvzyqi4823793 2.840.1.192212.3.579.2.358758-48-3497Nihradb2703698 2.16840.1.538050.3.579.2.562060-20-3447Skiyzpr6656033 2.16840.1.226212.3.579.2.633338-89-7352Mujibpu2951671 2.16840.1.646538.3.579.2.002778-99-0474Fakxblw1874340 2.16.840.1.688787.3.579.2.198695-88-4811Yuwqryt3927410 2.16840.1.391852.3.579.2.601444-19-3528Ttcjzfs0155560 2.16.840.1.969603.3.579.2.215117-26-0624Cbzudbp5407069 2.840.1.059774.3.579.2.266189-08-6837Ifyglxv7110514 2.16.840.1.785469.3.579.2.606317-78-6136Avnolsr0365312 2.840.1.935323.3.579.2.670248-12-4193Nyktmxc1976800 2.840.1.049926.3.579.2.520839-98-0809Mgqfvuf0519786 2.840.1.991410.3.579.2.378809-83-1193Kfhiyxh9544188 2.0.1.706202.3.579.2.486307-60-0385Egsuhsz0713606 2.840.1.862086.3.579.2.484391-21-8628Lukijpk1477513 2.840.1.104223.3.579.2.081996-69-3351Isbfupc6036299 2.0.1.907205.3.579.2.824307-80-6988Svfdjnu3023193 2.840.1.996193.3.579.2.307111-00-8017Dbnqptw1152986 2.840.1.675155.3.579.2.756611-56-7017Pnxrvdn5096692 2.840.1.609772.3.579.2.582710-08-1889Uieraau2114571 2.840.1.137280.3.579.2.338430-09-0564Gaugpjt0697865 2.16.840.1.672494.3.579.2.145674-18-5805Xsbbdjr4965578 2.16.840.1.030667.3.579.2.572719-85-1082Dgyrwpl9521268 2.16.840.1.255010.3.579.2.475293-37-0051Wfthpub3254777 2.16.840.1.824007.3.579.2.513492-37-8545Vqvggza6909012 2.16.840.1.491395.3.579.2.655824-98-0536Ywswgvz4207959 2.16.840.1.218347.3.579.2.565094-83-6997Qncizna9202247 2.16840.1.029234.3.579.2.512056-78-8056Mrdnufe2600562 2.16840.1.614977.3.579.2.029220-80-8490Pudumqg5404027 2..840.1.683889.3.579.2.813569-47-4308Ccjknun5167783 2.16.840.1.844674.3.579.2.587637-50-1170Hktkczy0489060 2.16840.1.804884.3.579.2.086291-05-9940Lnilktj1078354 2.16.840.1.402356.3.579.2.406344-90-3055Apbkkho6242988 2.16.840.1.046923.3.579.2.652807-08-7458Czvzodi6258479 2.16.840.1.354158.3.579.2.640251-68-9116Fdtqwxm4862296 2.16840.1.427989.3.57[id number] 2..840.1.001017.[id number] 2..840.1.540278.3.579.2.531 Social History DateTypeDetailFacilityStart: 05-10-2023 End: 61-36-6732Mhpino alcohol useSocial alcohol useNOLA HealthcareStart: 08-12-2021 End: 00-90-2650Nqmhjrd smoking status NHISEx-smokerSt[facility] End: 20-62-6619Exebkjz of tobacco useCurrent smokerAvita Health System Bucyrus Hospitaltart: 08-12-2021 End: 90-31-7679Owmufyo use and exposureSmokeless tobacco non-userAvita Health System Bucyrus Hospitaltart: 08-12-2021 End: 58-80-6885Cnjanwd intakeCurrent drinker of alcohol (finding)[facility]: 98-46-3481Rmmedpe SDOH Alcohol Commentcouple drinks weeklyAvita Health System Bucyrus Hospitaltart: 74-95-6842Cgb Assigned At [facility] HealthNot on fileAvita Health System Bu[facility] Hospitaltart: 03-28-2021 End: 09-50-4830Bbnhkyc smoking statusNever smoked tobacco (finding)[facility] start: 96-36-0233Mimcudl smoking statusNeverExecutive [facility] start: 05-10-2023 End: 40-70-1011Gyj Assigned At [facility] [employer] Other Start: 47-61-7602Ktc Assigned At [facility]art: 25-86-6789Pebnnhx Commentoccasional wine/ mixed drinkSt. Rita's Hospital Work Phone: Start: 04-30-2023 End: 04-67-0882Wsymmleq to SARS-CoV-2 (event)Not sureSt. Rita's Hospital End: 58-02-2061Wcorlpv of tobacco useCigarette SmokerNOMS HealthcareWithin the last year, have you been afraid of your partner or ex-partner?NoNOMS Healthcare Are you now , , , , never or living with a partner?MarriedNOMS HealthcareHow often to you have a drink containing alcohol?2-3 time sa weekNOMS HealthcareHow many standard drinks containing alcohol do you have on a typical day?1 or 2NOMS HealthcareHow often do you have 6 or more drinks on 1 occasion?NeverNOMS HealthcareDo you feel stress - tense, restless, nervous, or anxious, or unable to sleep at night because yourmind is troubled all the time - these days [OSQ]Not at allNOMS Healthcare(I/We) worried whether (my/our) food would run out before (I/we) got money to buy more.Never trueNOLA HealthcareStart: 85-47-1724Dkpjqpw Comment1-2 drinks 2-3 times a week [facility]Start: 06-62-8392Zsizia identityIdentifies as female gender (finding)[facility]Start: 88-71-2820Ybrpfe orientationHeterosexual (finding)[facility] Medical Equipment Procedure CodeEquipment CodeEquipment Original TextEquipment IdentifierDates Arthroscopy, shoulderANCHOR 4.75 SWIVELOCKFDAStart: 52-80-8759Fhkugezftaq, shoulderANCHOR 4.75 SWIVELOCKFDAStart: 09-27-2018 Functional Status ZmscAoavplthlpYuajkaLfiwpnlu57-92-5044Iyrkjfz Health Questionnaire 2 item (PHQ- 2) [Reported][facility] InstituteOesxtckwuw89-13-3530Boqfdbb Health Questionnaire 2 item (PHQ- 2) [Reported][facility] InstituteBknrpevihk31-08-3295Rhgddkf Health Questionnaire 2 item (PHQ- 2) [Reported][facility] InstituteYhfsuvihnx76-00-3808Ikcprvq Health Questionnaire 2 item (PHQ- 2) [Reported][facility] Rehabilitation [id number] StatusN/AExec[facility]10[facility]2023Functional StatusN/A[facility]07-15-2022Functional StatusN/A [facility] Clinical Notes 08-12-2021 to 05-12-2025 Note Date & [id number] History of Present illness Narrative* Ivory Bazan, VISCOSITY WORKER - 05/12/2025 9:00 AM EST Reason for Appointment: Patient ID: Ivonne Echevarria is a 69 y.o. female who presents [...] smoker 05/12/2024 NAS (acute kidney injury) 11/20/2024 CLAROS (dyspnea on exertion) 11/20/2024 Family history of [...] REPAIR Right 01/31/2024 DEBORAH W/ SAD ; STEPANIC TONSILLECTOMY REVIEW OF SYSTEMS Review of Systems: [...] nursing note reviewed. Exam conducted with a mental health advanced practice nurse present. Vitals: Estimated body mass index is 27.07 kg/m as calculated from the following: Height [...] of: Ekta Stover PA-C documented in this encounterThe Rehabilitation [id number] History of Present illness Narrative* Conchis Zamora, - 02/16/2025 12:30 PM EDT Images from the original note were not included. Ivonne Echevarria is a 69 y.o. female presents with chief complaint of Chief Complaint Patient presents with Hip Pain Ivonne was seen today for hip pain. Diagnoses and all orders for this visit: Greater trochanteric bursitis, left Left hip pain Assessment & Plan 1. Greater trochanteric bursitis. Examination of the left hip reveals near full range of motion. Pain is noted during hip abduction strength testing. No crepitus or deformity. Some pain to palpation of greater trochanteric bursa. No antalgic gait. Reviewed anatomy structure of the hip. Discussed treatment options. She has failed conservative management. Patient has opted for a cortisone injection. Discussed further intervention such as physical therapy to help decrease inflammation. Cortisone injection administered today without complications. All questions were answered. Procedure Details: The patient was apprised of the risks and the benefits of the procedure which they signed the consent that was scanned into the patient's chart. With the patient in the lateral decubitus position theleft greater trochanter was sterilely prepped with chloroprep and alcohol. Using a 23 g 1 1/2 in needle was was advanced into the bursa close to the greater trochanter. Once in position, aspiration was done with no blood. Total of 1 ml 6 mg celestone and 2 ml 1% lidocaine was injected and then the needle was withdrawn. Band aide was placed. No complications occured. MEDICATION SUMMARY: Medication Changes As of 02/16/2025 12:37 PM Refills Start Date End Date Metoprolol Succinate Discontinued or Completed: metoprolol succinate XL (Toprol-XL) 25 MG 24 hr tablet (Therapy completed) Unchanged: metoprolol succinate XL (Toprol-XL) 50 MG 24 hr tablet -- 02/05/2025 -- TAKE 1 TABLET (50 MG) BY MOUTH EVERY DAY DO NOT CRUSH OR CHEW Patient-reported medication Discontinued or Completed: dexAMETHasone (Decadron) 6 MG tablet (Therapy completed) Discontinued or Completed: magnesium oxide (Mag-Ox) 400 MG tablet (Therapy completed) Patient-reported medication Discontinued or Completed: MiraLax 17 GM/SCOOP powder (Therapy completed) Patient-reported medication Medication List at End of Visit As of 02/16/2025 12:37 PM Refills Start Date End Date albuterol HFA 90 mcg/act inhaler -- 06/08/2022 -- every 6 (six) hours. Patient-reported medication aspirin 81 MG EC tablet -- -- Take 81 mg by mouth in the morning. - Oral Patient-reported medication biotin 1000 MCG tablet -- -- Take by mouth Daily. - Oral Patient-reported medication calcium carbonate 1500 (600 Ca) MG tablet -- -- Take 600 mg by mouth in the morning. - Oral Patient-reported medication coenzyme Q-10 100 MG capsule -- -- 1 (one) time each day at the same time. Patient-reported medication estradiol (Estrace) 0.1 MG/GM vaginal cream -- 12/30/2022 -- APPLY 1 GRAM VAGINALLY TWICE A WEEK (SUNDAY & SUNDAY) Patient-reported medication hydrocortisone 2.5 % ointment -- 09/26/2024 -- APPLY TO AFFECTED AREAS AROUND EYES TWICE A DAY FOR UP TO 3 WEEKS THEN NEEDED FOR FLARES Patient-reported medication ibandronate (Boniva) 150 MG tablet 0 02/14/2024 -- TAKE 1 TABLET BY MOUTH ONCE A MONTH WITH PLAIN WATER 60 MINUTES BEFORE THE FIRST FOOD, BEVERAGE OR MEDICINE OF THE DAY. latanoprost (Xalatan) 0.005 % ophthalmic solution -- 11/14/2022 -- Administer 1 drop into both eyes at bedtime. - Both Eyes Patient-reported medication losartan (Cozaar) 50 MG tablet 0 11/26/2024 -- TAKE 1 TABLET BY MOUTH EVERY DAY - Oral metoprolol succinate XL (Toprol-XL) 50 MG 24 hr tablet -- 02/05/2025 -- TAKE 1 TABLET (50 MG) BY MOUTH EVERY DAY DO NOT CRUSH OR CHEW Patient-reported medication montelukast (Singulair) 10 MG tablet 1 06/25/2023 -- TAKE 1 TABLET BY MOUTH EVERY DAY - Oral pantoprazole (ProtoNix) 40 MG EC tablet -- -- TAKE 1 TABLET BY MOUTH EVERY DAY FOR 90 DAYS Patient-reported medication PARoxetine (Paxil) 20 MG tablet 3 11/05/2024 -- TAKE 1 TABLET BY MOUTH DAILY - Oral rosuvastatin (Crestor) 10 MG tablet 2 02/22/2023 02/16/2025 Take 1 tablet (10 mg) by mouth in the morning. - Oral Patient taking differently: Take 20 mg by mouth Daily tiZANidine (Zanaflex) 2 MG tablet 1 11/10/2024 -- TAKE 1 TO 2 TABLETS BY MOUTH NEEDED AT BEDTIME FOR MUSCLE SPASMS CONCHIS PETZNICK D.O. This note was entered using INMAN. Grammatical and dictation errors maybe present in translation *I have reviewed and reconciled the history and medication list with the patient today* History of Present Illness Has continued with left hip pain. Did not notice any change with dexamethasone prescribed at visit on 02.06.25. More pain with walking and with going up steps. Going to [place] in [place] month and is going to be hiking. The patient is a 69-year-old female who presents with left hip pain. She reports discomfort in her left hip, which is exacerbated when she lies on it. The pain intensifies during activities such as ascending stairs. She was given dexamethasone a few weeks ago, which did not seem to help. She has previously received an injection in her shoulder. SUBJECTIVE: Current Medications: Allergies/Social History: ROS Current Outpatient Medications Medication Instructions albuterol HFA [...] MOUTH NEEDED AT BEDTIME FOR MUSCLE SPASMS Allergies Allergen Reactions Clarithromycin Unknown Glycerin Diarrhea Social History Tobacco Use Smoking status: Former Current packs/day: 0.00 Types: Cigarettes Quit date: 07/09/1977 Years since quittin.6 Smokeless tobacco: Never Vaping Use Vaping status: Never Used Substance Use Topics Alcohol use: Yes Alcohol/week: 3.0 - 4.0 standard drinks of alcohol Types: 3 - 4 Standard drinks or equivalent per week Comment: 1-2 drinks 2-3 times a week Drug use: Never Review of Systems Constitutional: Negative for fatigue and fever. Musculoskeletal: Positive for arthralgias and gait problem. Skin: Negative for rash. Neurological: Negative for weakness and numbness. Psychiatric/Behavioral: Negative. All other systems reviewed and are negative. Hematological: Does not bruise/bleed easily. Past Medical History: Surgical History: Depression Screen/FHx Past Medical History: Diagnosis Date Allergies Anxiety [...] Right 01/31/2024 DEBORAH W/ SAD ; DR MCCLELLAN TONSILLECTOMY Depression: Not at risk (02/16/2025) PHQ-2 PHQ-2 Score: 0 Family History Problem Relation Name Age of Onset Hyperlipidemia Mother Hypertension Mother Heart disease Mother Heart disease Father Hypertension Father Asthma Father Hyperlipidemia Father Prostate cancer Brother OBJECTIVE: 02/16/2025 12:27 PM 02/06/2025 9:19 AM 11/03/2024 9:24 AM 10/17/2024 10:02 AM 10/02/2024 10:04 AM 04/24/2024 8:45 AM 04/14/2024 8:54 AM Vitals BMI 26.52 kg/m2 26.63 kg/m2 25.79 kg/m2 26.12 kg/m2 26.16 kg/m2 26.54 kg/m2 27.11 kg/m2 BSA (m2) 1.7 m2 1.7 m2 1.67 m2 1.68 m2 1.68 m2 1.7 m2 1.71 m2 Systolic 120 118 116 124 112 122 126 Diastolic 76 72 74 82 78 70 82 Heart Rate 56 67 74 73 92 77 SpO2 96 % 98 % 98 % 98 % 94 % 98 % Temp 98.2 F 97.1 F 98.3 F 97.5 F 98.7 F 96.3 F Height (in) 5' 2 5' 2 5' 2 5' 2 5' 2 5' 2 Weight (lb) 145 145.6 141 142.8 143 145.12 148.2 Visit Report Report Report Report Report Report Report Report Physical Exam General Appearance: Alert and oriented. Pleasant affect. No acute distress. Well nourished. Head: Atraumatic normal cephalic. No masses or swelling. Eyes: EOMI, sclera white, conjunctiva clear, no injection. Pupils relatively equal size. Ears: External ears normal. No signs or trauma or infection. Nose: Nasal mucosal pink and moist, No discharge or congestion. Normal appearance of the soft tissue of the nose. Throat: Lips moist, Teeth and gums in good condition. Neck: Supple, no obvious range of motion deficits, no swelling or pain. Musculoskeletal/Extremities: Near full range of motion of the left hip. Pain during hip abduction strength testing. No crepitus, no deformity. Pain to palpation of greater trochanteric bursa. No antalgic gait. Skin: Warm and dry, no rashes. Neurological: Cranial nerves II-VII grossly intact, no gross neurologic abnormalities or focal defects. Psychiatric: Cooperative, pleasant, no signs of major mood disorder. documented in this encounterThe Rehabilitation [id number] History of Present illness Narrative* Conchis Zamora DO - 02/06/2025 9:15 AM EDT Images from the original note were not included. Ivonne Echevarria is a 69 y.o. female presents with chief complaint of Chief Complaint Patient presents with Foot Pain Ivonne was seen today for foot pain. Diagnoses and all orders for this visit: Left foot pain - XR foot 3+ views left - dexAMETHasone (Decadron) 6 MG tablet; Take 1 tablet (6 mg) by mouth Daily for 7 days Dukes's esophagus with dysplasia Pes cavus Greater trochanteric bursitis, left Assessment & Plan 1. Left foot pain. Reports pain on the top of the foot that worsens with walking and is somewhat alleviated by wearingtennis shoes. No numbness or tingling. Examination reveals swelling and pain upon palpation over the first tarsometatarsal joint and navicular talar joint. Higher arches noted. Differential diagnosisincludes arthritic changes and potential bone spurs. X-ray will be obtained to assess for bone spurs and other abnormalities. Advised to use [place] shoes for better cushioning. Prescription for dexamethasone 6 mg for 7 days sent to pharmacy. Voltaren gel recommended for topical application 2-3 times a day. 2. Greater trochanteric bursitis. Reports hip pain for which a muscle relaxer and another medication were previously prescribed but stopped due to kidney concerns. Dexamethasone may help alleviate hip pain. Reviewed treatment optionsand recommended maintaining Voltaren gel use. MEDICATION SUMMARY: Medication Changes As of 02/06/2025 10:01 AM Refills Start Date End Date Added: dexAMETHasone (Decadron) 6 MG tablet 0 02/06/2025 02/13/2025 Take 1 tablet (6 mg) by mouth Daily for 7 days - Oral Medication List at End of Visit As of 02/06/2025 10:01 AM Refills Start Date End Date albuterol HFA 90 mcg/act inhaler -- 06/08/2022 -- every 6 (six) hours. Patient-reported medication aspirin 81 MG EC tablet -- -- Take 81 mg by mouth in the morning. - Oral Patient-reported medication biotin 1000 MCG tablet -- -- Take by mouth Daily. - Oral Patient-reported medication calcium carbonate 1500 (600 Ca) MG tablet -- -- Take 600 mg by mouth in the morning. - Oral Patient-reported medication coenzyme Q-10 100 MG capsule -- -- 1 (one) time each day at the same time. Patient-reported medication dexAMETHasone (Decadron) 6 MG tablet 0 02/06/2025 02/13/2025 Take 1 tablet (6 mg) by mouth Daily for 7 days - Oral estradiol (Estrace) 0.1 MG/GM vaginal cream -- 12/30/2022 -- APPLY 1 GRAM VAGINALLY TWICE A WEEK (SUNDAY & JEMAL) Patient-reported medication hydrocortisone 2.5 % ointment -- 09/26/2024 -- APPLY TO AFFECTED AREAS AROUND EYES TWICE A DAY FOR UP TO 3 WEEKS THEN NEEDED FOR FLARES Patient-reported medication ibandronate (Boniva) 150 MG tablet 0 02/14/2024 -- TAKE 1 TABLET BY MOUTH ONCE A MONTH WITH PLAIN WATER 60 MINUTES BEFORE THE FIRST FOOD, BEVERAGE OR MEDICINE OF THE DAY. latanoprost (Xalatan) 0.005 % ophthalmic solution -- 11/14/2022 -- Administer 1 drop into both eyes at bedtime. - Both Eyes Patient-reported medication losartan (Cozaar) 50 MG tablet 0 11/26/2024 -- TAKE 1 TABLET BY MOUTH EVERY DAY - Oral magnesium oxide (Mag-Ox) 400 MG tablet -- 11/20/2024 11/20/2025 Take 1 tablet by mouth in the morning and 1 tablet in the evening. - Oral Patient-reported medication metoprolol succinate XL (Toprol-XL) 25 MG 24 hr tablet 0 04/02/2024 -- TAKE 1 AND 1/2 TABLETS DAILY BY MOUTH EVERY DAY Patient taking differently: Take 50 mg by mouth Daily montelukast (Singulair) 10 MG tablet 1 06/25/2023 -- TAKE 1 TABLET BY MOUTH EVERY DAY - Oral pantoprazole (ProtoNix) 40 MG EC tablet -- -- TAKE 1 TABLET BY MOUTH EVERY DAY FOR 90 DAYS Patient-reported medication PARoxetine (Paxil) 20 MG tablet 3 11/05/2024 -- TAKE 1 TABLET BY MOUTH DAILY - Oral MiraLax 17 GM/SCOOP powder -- -- as directed Orally Patient-reported medication rosuvastatin (Crestor) 10 MG tablet 2 02/22/2023 02/06/2025 Take 1 tablet (10 mg) by mouth in the morning. - Oral Patient taking differently: Take 20 mg by mouth Daily tiZANidine (Zanaflex) 2 MG tablet 1 11/10/2024 -- TAKE 1 TO 2 TABLETS BY MOUTH NEEDED AT BEDTIME FOR MUSCLE SPASMS CONCHIS ZAMORA D.O. This note was entered using INMAN. Grammatical and dictation errors maybe present in translation *I have reviewed and reconciled the history and medication list with the patient today* History of Present Illness C/O left foot pain which started about 4 months ago. Denies injury. Pain is worse when walking. [place] and will be doing a lot of walking. Pain is located on the dorsal aspect of foot. Denies numbness/tingling or radiation of pain. No imaging. The patient is a 69-year-old female presenting with left foot pain. She reports experiencing pain on the top of her left foot, which intensifies with increased walking. The pain is localized to the side of her foot and is exacerbated by pressure. She does not experience any numbness or tingling sensations. Despite wearing tennis shoes for the past 2 months, she finds no relief from the pain, which worsens by the end of the day. She also notes that her foot appears swollen, a symptom she had not previously observed. Walking barefoot exacerbates the pain. She recalls stepping on an object recently, which caused significant pain. Additionally, she mentions that her bunions become red when she removes her shoes, although she does not feel any tightness while [place]. She has been experiencing hip pain. She was prescribed a muscle relaxer and another medication for her hip, but she discontinued their use due to a kidney issue. She is planning a hiking trip next month and is concerned about her ability to participate due to her foot pain. SUBJECTIVE: Current Medications: Allergies/Social History: ROS Current Outpatient Medications Medication Instructions albuterol HFA 90 mcg/act inhaler Every 6 hours aspirin 81 mg, Daily RT biotin 1000 MCG tablet Daily RT calcium carbonate 600 mg, Daily RT coenzyme Q-10 100 MG capsule Every 24 hours dexAMETHasone (DECADRON) 6 mg, Oral, Daily estradiol (Estrace) 0.1 MG/GM vaginal cream APPLY [...] Nightly losartan (COZAAR) 50 mg, Oral, Daily magnesium oxide (Mag-Ox) 400 MG tablet 1 tablet, 2 times daily metoprolol succinate XL (Toprol-XL) 25 MG [...] MOUTH NEEDED AT BEDTIME FOR MUSCLE SPASMS Allergies Allergen Reactions Clarithromycin Unknown Glycerin Diarrhea Social History Tobacco Use Smoking status: Former Current packs/day: 0.00 Types: Cigarettes Quit date: 07/09/1977 Years since quittin.6 Smokeless tobacco: Never Vaping Use Vaping status: Never Used Substance Use Topics Alcohol use: Yes Alcohol/week: 3.0 - 4.0 standard drinks of alcohol Types: 3 - 4 Standard drinks or equivalent per week Comment: 1-2 drinks 2-3 times a week Drug use: Never Review of Systems Constitutional: Negative for fatigue and fever. Musculoskeletal: Positive for arthralgias and gait problem. Skin: Negative for rash. Neurological: Negative for weakness and numbness. Psychiatric/Behavioral: Negative. All other systems reviewed and are negative. Hematological: Does not bruise/bleed easily. Past Medical History: Surgical History: Depression Screen/FHx Past Medical History: Diagnosis Date Allergies Anxiety [...] Right 01/31/2024 DEBORAH W/ SAD ; DR MCCLELLAN TONSILLECTOMY Depression: Not at risk (02/06/2025) PHQ-2 PHQ-2 Score: 0 Family History Problem Relation Name Age of Onset Hyperlipidemia Mother Hypertension Mother Heart disease Mother Heart disease Father Hypertension Father Asthma Father Hyperlipidemia Father Prostate cancer Brother OBJECTIVE: 02/06/2025 9:19 AM 11/03/2024 9:24 AM 10/17/2024 10:02 AM 10/02/2024 10:04 AM 04/24/2024 8:45 AM 04/14/2024 8:54 AM 01/17/2024 9:00 AM Vitals BMI 26.63 kg/m2 25.79 kg/m2 26.12 kg/m2 26.16 kg/m2 26.54 kg/m2 27.11 kg/m2 26.16 kg/m2 BSA (m2) 1.7 m2 1.67 m2 1.68 m2 1.68 m2 1.7 m2 1.71 m2 1.68 m2 Systolic 118 116 124 112 122 126 Diastolic 72 74 82 78 70 82 Heart Rate 67 74 73 92 77 SpO2 98 % 98 % 98 % 94 % 98 % Temp 97.1 F 98.3 F 97.5 F 98.7 F 96.3 F Height (in) 5' 2 5' 2 5' 2 5' 2 5' 2 5' 2 Weight (lb) 145.6 141 142.8 143 145.12 148.2 143 Visit Report Report Report Report Report Report Report Report Physical Exam General Appearance: Alert and oriented. Pleasant affect. No acute distress. Well nourished. Head: Atraumatic normal cephalic. No masses or swelling. Eyes: EOMI, sclera white, conjunctiva clear, no injection. Pupils relatively equal size. Ears: External ears normal. No signs or trauma or infection. Nose: Nasal mucosal pink and moist, No discharge or congestion. Normal appearance of the soft tissue of the nose. Throat: Lips moist, Teeth and gums in good condition. Neck: Supple, no obvious range of motion deficits, no swelling or pain. Musculoskeletal/Extremities: Pain on the dorsal aspect of the left foot extending medially into thetoes. No crepitus or deformity observed. Neurovascular integrity maintained with full range of motion. Pain upon palpation over the first tarsometatarsal joint and navicular talar joint. Higher arches noted with some medial forefoot shoe wear. Skin: Warm and dry, no rashes. Neurological: Cranial nerves II-VII grossly intact, no gross neurologic abnormalities or focal defects. Psychiatric: Cooperative, pleasant, no signs of major mood disorder. documented in this encounterThe Rehabilitation [id number] History of Present illness Narrative* Lacey Damico MD - 11/20/2024 1:15 PM EDT Images from the original note were not included. Chief Complaint: Chief Complaint Patient presents with Follow-up 6 month Follow up for Hypertension At last office visit we added magnesium oxide 400 mg daily, increased her rosuvastatin from 10 mg daily to 20 mg daily, increase metoprolol succinate from 25 mg daily to 50 mg daily and added Maxide 25 mg p.o. daily. Patient has other comorbidities which are as listed below. She has mixed hyperlipidemia, essential hypertension, palpitations, and coronary calcium score less than 100. Subjective : She brought in a log of home blood pressure readings, they are all at target, systolics in the 130s diastolics in the 70s. Review of Systems interval review of systems is negative for chest discomfort pressure tightness heaviness lightheadedness orthopnea paroxysmal nocturnal dyspnea dependent edema or claudication TIA or CVA type symptoms or bleeding diathesis Has rare palpitations, which are not particularly bothersome discontinued Maxide and initiated losartan because of her declining kidney function Joseph have reviewed blood work. GFR is now in the high 50s, previously it was 80 History so Far : Palpitations (785.1) (R00.2) PVC symptomatic Reported 3% PVC burden [facility] summer 2021. We will request records. [...] ascending thoracic aorta 3.2 cm in diameter 19. Acute kidney injury with drop in GFR from 80 to high 50s, Maxide was discontinued at that time.As of 11/20/2024 visit, GFR high 50s consistent with stage IIIa kidney disease Objective Wt Readings from Last 3 Encounters: 11/20/24 65.3 kg (144 lb) 05/12/24 66.2 kg (146 lb) 05/10/23 64.9 kg (143 lb) Vitals: 11/20/24 1326 BP: 118/72 BP Location: Left arm Patient Position: Sitting Pulse: 64 Weight: 65.3 kg (144 lb) Height: 1.575 m (5' 2 ) [...] ibandronate (BONIVA) 150 mg, Every 30 days losartan (COZAAR) 50 mg, Daily RT metoprolol succinate XL (TOPROL-XL) 37.5 mg, Daily montelukast (SINGULAIR) 10 mg, Nightly multivit-min/ferrous fumarate (MULTI VITAMIN ORAL) 1 tablet, Daily pantoprazole (ProtoNix) 40 mg EC tablet 1 tablet, Daily PARoxetine (Paxil) 20 mg tablet 1 tablet, Daily rosuvastatin (CRESTOR) 20 mg, oral, Daily Allergies: Clarithromycin LABS: August 2024-BUN 22 creatinine 1.12 GFR 54 sodium 139 potassium 3.6 total cholesterol 181 triglycerides 109 HDL 63 LDL 99 AST and ALT are normal. October 2024 BUN 29 creatinine 1.05 GFR 58 sodium 140 potassium 3.8 liver enzymes normal GFR in April 2024 was 80 Testing Reviewed Reviewed all available pertinent laboratory data and diagnostic testing results that occurred afterthe last office visit with me Assessment: 1. Essential (primary) hypertension Follow Up In Cardiology 2. Palpitations 3. Mixed hyperlipidemia 4. NAS (acute kidney injury) 5. BMI 26.0-26.9,adult 6. Former smoker Clinical Decision Making: Patient's blood pressure is at target on her current medical regimen. Her kidney function is closely monitored by Dr. Zamora. I suggested that she could start magnesium oxide 400 mg p.o. twice daily, back off to 400 mg daily if she gets diarrhea this might help with her palpitations. As she was about to leave the office, she also reported exertional shortness of breath with any unaccustomed physical activity, no orthopnea or PND. She also told me that several family members have blood clots, and had her father in his 60s with a coronary event. I have therefore scheduled a treadmill stress perfusion imaging study may switch to Lexiscan Myoview as needed, she can do it on her medical therapy Enteric-coated aspirin 81 mg p.o. daily Patient to discuss with Dr. Zamora as to whether she needs any workup for hypercoagulable status.Personally she has not had any blood clots, she denies any miscarriages. Follow up : after testing IBrittany LPN am scribing for, and in the presence of Dr. Lacey Damico MD, FACC. I, Dr. Lacey Damico MD, FACC, personally performed the services described in the documentation as scribed by Brittany Daley LPN in my presence, and confirm it is both accurate and complete. documented in this [facility] Work Phone: [phone] Instructions* Patient Instructions* Brittany Linda LPN - 11/20/2024 1:15 PM EDT Please bring all medicines, vitamins, and herbal supplements with you when you come to the office. Prescriptions will not be filled unless you are compliant with your follow up appointments or have a follow up appointment scheduled as per instruction of your physician. Refills should be requested at the time of your visit. BMI was above normal measurement. Current weight: 65.3 kg (144 lb) Weight change since last visit (-) denotes wt loss -2 lbs Weight loss needed to achieve BMI 25: 7.6 Lbs Weight loss needed to achieve BMI 30: -19.7 Lbs Provided instructions on dietary changes Provided instructions on exercise. documented in this [facility] Work Phone: [phone] History of Present illness Narrative* Conchis Zamora, - 11/03/2024 9:15 AM EDT Images from the original note were not included. Ivonne Echevarria is a 69 y.o. female presents with chief complaint of Chief Complaint Patient presents with Annual Exam Ivonne was seen today for annual exam. Diagnoses and all orders for this visit: Routine general medical examination at a health care facility - Comprehensive metabolic panel - CBC and differential - Urinalysis with reflex microscopic - LIPID PANEL W/ CHOL/HDL RATIO Impaired renal function - Microalbumin / creatinine urine ratio Age-related osteoporosis without current pathological fracture (CMS/HCC) Anxiety Eosinophilic esophagitis Essential hypertension (CMS/HCC) Mixed hyperlipidemia (CMS/HCC) Assessment & Plan 1. Bilateral veliz pain. Upon evaluation during today's visit, the diagnosis of likely fascial irritation in her shins was discussed. Physical examination revealed mild tenderness along the medial tibial border without defects or crepitus. She was advised to use supportive footwear to mitigate impact and irritation. The use of [place] shoes was recommended due to their superior comfort and cushioning. She will continue to monitor her symptoms. 2. Nausea. Reports experiencing random episodes of nausea that can last from an hour to a day, not associated with food intake. 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 The possibility of switching her blood pressure medication was discussed as a potential solution if symptoms persist. Will follow up with her biodiesel processing technician on 11/10/2024 to discuss this further. 3. Health maintenance. At today's health maintanence appointment I reviewed the patients past medical history along with any laboratory and diagnostic testing preformed prior to the visit. During the visit, health care maintanence was reviewed and recommendations made specifically for the patient based on their risk factors. Current colon cancer screening: up-to-date with colonoscopy. Breast cancer screening: up-to-date with screening. Blood work: routine blood work ordered. Finally the patient was instructed to callthe office if any health issues arise until the next well check/appointment. At the conclusion of the visit all questions were answered which were brought forth. CONCHIS ZAMORA D.O. This note was entered using [employer]. Grammatical and dictation errors maybe present in translation *I have reviewed and reconciled the history and medication list with the patient today* History of Present Illness List of current healthcare providers: Patient Care Team: Conchis Zamora DO as PCP - General (Family Medicine) Conchis Zamora DO as PCP - [employer] [place] Medicare Annual Visit Over the past 2 weeks, how often have you been bothered by any of the following problems? 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 Hearing Screening: Not done Cognitive Screening Self Assessment: No overt cognitive deficiency is apparent by direct observation Pain Assessment Pain Score: 1 The following health maintenance schedule was reviewed with the patient and provided in printed form in the after visit summary: Health Maintenance Topic Date Due Influenza Vaccine (Season Ended) 2025 Medicare Annual Wellness (AWV) 04/24/2025 Mammogram 05/19/2025 Colorectal Cancer Screening 10/21/2028 Pneumococcal Vaccine: 65+ Years Completed Orders Placed This Encounter Procedures Comprehensive metabolic panel Print requisition?: Yes CBC and differential Print requisition?: Yes Microalbumin / creatinine urine ratio Print requisition?: Yes Urinalysis with reflex microscopic Print requisition?: Yes LIPID PANEL W/ CHOL/HDL RATIO Print requisition?: Yes Here for yearly MWV and to review lab results. DEXA last 2023. Mammogram last 05/2024. Colonoscopy last in 2018. Prevnar 20 given in 2021. Wants to discuss kidney function recheck. Has not been doing anti inflammatory since received lab results. Still having pain in hip but had not noticed a change with or without the meloxicam. Tizanidine is making her sleep well at night The patient is a 69-year-old female who presents for a Medicare wellness visit. Painful lumps on legs - Intermittent, painful lumps below the knees - Tender to touch and can be felt upon impact - Persist for 4 to 5 days before resolving - Appear in different areas each time - No associated bruising or swelling - Massages or pedicures can sometimes exacerbate the pain - Recently purchased two pairs of tennis shoes with the intention of resuming walking routine - Regular stretching exercises are not performed Sudden bouts of nausea - Lasting from an hour to a day - No associated vomiting - Not linked to dietary intake - Occurring for the past 2.5 weeks - No gallbladder pain or heartburn at night - Blood glucose levels have always been normal Supplemental information: She is currently on triamterene-hydrochlorothiazide, prescribed by 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 FAMILY HISTORY - Sister was recently hospitalized due to blood clots SUBJECTIVE: Current Medications: Allergies/Social History: ROS Current Outpatient Medications on File Prior to Visit Medication Sig Dispense Refill albuterol HFA 90 mcg/act inhaler every 6 (six) hours. aspirin 81 MG EC tablet Take 81 mg by mouth in the morning. biotin 1000 MCG tablet Take by mouth Daily. calcium carbonate 1500 (600 Ca) MG tablet Take 600 mg by mouth in the morning. coenzyme Q-10 100 MG capsule 1 (one) time each day at the same time. estradiol (Estrace) 0.1 MG/GM vaginal cream APPLY [...] OR MEDICINE OF THE DAY. 12 tablet 0 latanoprost (Xalatan) 0.005 % ophthalmic solution Administer 1 drop into both eyes at bedtime. metoprolol succinate XL (Toprol-XL) 25 MG 24 hr tablet TAKE 1 AND 1/2 TABLETS DAILY BY MOUTH EVERY DAY (Patient taking differently: Take 50 mg by mouth Daily) 135 tablet 0 MiraLax 17 GM/SCOOP powder as directed Orally montelukast (Singulair) 10 MG tablet TAKE 1 TABLET BY MOUTH EVERY DAY 90 tablet 1 pantoprazole (ProtoNix) 40 MG EC tablet TAKE 1 TABLET BY MOUTH EVERY DAY FOR 90 DAYS PARoxetine (Paxil) 20 MG tablet TAKE 1 TABLET BY MOUTH DAILY 90 tablet 1 rosuvastatin (Crestor) 10 MG tablet Take 1 tablet (10 mg) by mouth in the morning. (Patient taking differently: Take 20 mg by mouth Daily) 90 tablet 2 tiZANidine (Zanaflex) 2 MG capsule Take 1-2 capsules (2-4 mg) by mouth as needed at bedtime for muscle spasms 60 capsule 1 triamterene-hydrochlorothiazide (Maxzide-25) 37.5-25 MG tablet Take 1 tablet by mouth Daily [DISCONTINUED] meloxicam (Mobic) 15 MG tablet Take 1 tablet (15 mg) by mouth once per day 30 tablet3 No current facility-administered medications on file prior to visit. Allergies Allergen Reactions Clarithromycin Unknown Glycerin Diarrhea Social History Tobacco Use Smoking status: Former Current packs/day: 0.00 Types: Cigarettes Quit date: 07/09/1977 Years since quittin.3 Smokeless tobacco: Never Vaping Use Vaping status: Never Used Substance Use Topics Alcohol use: Yes Alcohol/week: 3.0 - 4.0 standard drinks of alcohol Types: 3 - 4 Standard drinks or equivalent per week Comment: 1-2 drinks 2-3 times a week Drug use: Never Review of Systems Constitutional: Negative for fatigue. HENT: Negative for rhinorrhea. Respiratory: Negative for cough and shortness of breath. Cardiovascular: Negative for chest pain. Gastrointestinal: Negative for abdominal distention. Musculoskeletal: Positive for arthralgias and gait problem. Skin: Negative for rash. Neurological: Negative for dizziness. All other systems reviewed and are negative. Past Medical History: Surgical History: Depression Screen/FHx Past Medical History: Diagnosis Date Allergies Anxiety Arthritis of hip 04/19/2022 Asthma Dukes esophagus BPPV (benign paroxysmal positional vertigo), [...] REPAIR Right 01/31/2024 DEBORAH W/ SAD ; STEPANIC TONSILLECTOMY Depression: Not at risk (11/03/2024) PHQ-2 PHQ-2 Score: 0 Family History Problem Relation Name Age of Onset Hyperlipidemia Mother Hypertension Mother Heart disease Mother Heart disease Father Hypertension Father Asthma Father Hyperlipidemia Father Prostate cancer Brother OBJECTIVE: 11/03/2024 9:24 AM 10/17/2024 10:02 AM 10/02/2024 10:04 AM 04/24/2024 8:45 AM 04/14/2024 8:54 AM 01/17/2024 9:00 AM 10/31/2023 3:38 PM Vitals BMI 25.79 kg/m2 26.12 kg/m2 26.16 kg/m2 26.54 kg/m2 27.11 kg/m2 26.16 kg/m2 26.16 kg/m2 BSA (m2) 1.67 m2 1.68 m2 1.68 m2 1.7 m2 1.71 m2 1.68 m2 1.68 m2 Systolic 116 124 112 122 126 124 Diastolic 74 82 78 70 82 80 Heart Rate 74 73 92 77 76 SpO2 98 % 98 % 94 % 98 % 99 % Temp 98.3 F 97.5 F 98.7 F 96.3 F Height (in) 5' 2 5' 2 5' 2 5' 2 5' 2 5' 2 Weight (lb) 141 142.8 143 145.12 148.2 143 143 Visit Report Report Report Report Report Report Report Report GENERAL EXAM: Physical Exam General Appearance: Alert and oriented. Pleasant affect. No acute distress. Well nourished. Head: Atraumatic normal cephalic. No masses or tenderness. Eyes: EOMI, sclera white, conjunctiva clear, no injection. Pupils relatively equal size. Ears: External ears normal. No signs or trauma or infection. Nose: Nasal mucosal pink and moist, No discharge or congestion. Normal appearance of the soft tissue of the nose. Throat: Lips moist, Teeth and gums in good condition. Neck: Supple, no obvious range of motion deficits, no swelling or pain on palpitation. Respiratory: Clear to auscultation, no wheezing, rales or rhonchi. Cardiovascular: Regular rate and rhythm, no murmurs. Normal S1, S2. Gastrointestinal: Abdomen soft, non-tender, non-distended. No guarding or rebound. Musculoskeletal: No gross deformities or malalignment, normal ambulation. Extremities: Mild tenderness noted along the medial tibial border of the anterior chains. No defects or crepitus observed. Skin: Warm and dry, no rashes. Neurological: Cranial nerves II-VII grossly intact, no gross neurologic abnormalities. Psychiatric: Cooperative, pleasant, no signs of major mood disorder. documented in this encounterThe Rehabilitation [id number] History of Present illness Narrative* Conchis Zamora DO - 10/17/2024 9:45 AM EDT Images from the original note were not included. Ivonne Echevarria is a 69 y.o. female presents with chief complaint of Chief Complaint Patient presents with left hip pain Ivonne was seen today for left hip pain. Diagnoses and all orders for this visit: Greater trochanteric bursitis, left - Vitamin B12 - Ferritin - Folate - Magnesium - Basic metabolic panel - Iron + transferrin + TIBC - Vitamin D 25 hydroxy Total - meloxicam (Mobic) 15 MG tablet; Take 1 tablet (15 mg) by mouth once per day - tiZANidine (Zanaflex) 2 MG capsule; Take 1-2 capsules (2-4 mg) by mouth as needed at bedtime for muscle spasms Left hip pain - Vitamin B12 - Ferritin - Folate - Magnesium - Basic metabolic panel - Iron + transferrin + TIBC - Vitamin D 25 hydroxy Total Tongue pain - Vitamin B12 - Ferritin - Folate - Magnesium - Basic metabolic panel - Iron + transferrin + TIBC - Vitamin D 25 hydroxy Total Chronic fatigue - Vitamin B12 - Ferritin - Folate - Magnesium - Basic metabolic panel - Iron + transferrin + TIBC - Vitamin D 25 hydroxy Total Vitamin D deficiency - Vitamin D 25 hydroxy Total Assessment & Plan Greater trochanteric bursitis. The differential diagnosis suggests bursitis along with tendinitis of the external rotators. Treatment options were reviewed. She will be started on meloxicam 15 mg once daily and tizanidine 2 mg at night for the next 2 to 3 weeks. A home exercise program was discussed, including stretching exercises for the hamstrings, quads, and hip. If symptoms do not significantly improve, x- rays will be recommended. I spent a total of 30 minutes or more a date of the service which included preparing to seethe patient, [id number] patient care including obtaining/reviewing history and performing appropriate medical examination, completing clinical documentation and coordination of care. Tongue discomfort. She reports a sensation of bumps on the back of her tongue and occasional soreness. An oral examination revealed no ulcers or erythema. Blood work will be conducted to check for deficiencies in vitamin B12, iron, folate, and magnesium, which could be contributing to her symptoms. CONCHIS ZAMORA D.O. This note was entered using [employer] copilot. Grammatical and dictation errors maybe present in translation *I have reviewed and reconciled the history and medication list with the patient today* History of Present Illness HIP New problem Hip: left hip pain Duration of symptoms: years ago Pain onset: abruptly Location of pain: buttock and lateral Nature of symptoms: dull, sharp, and aching Symptoms aggregated: is worse with weight bearing, is aggravated by walking, and is worse after period of inactivity Progression of symptoms: worsening Needs ambulation assistance: No Prior history of related problems: Yes. Current and past treatments include: None Imaging preformed: None. Additional Comments: Pain started years ago- on and off. Pt states pain has been constant for about a year. Pain occurs when going from sitting to standing, and walking. -Also would like the back of her tongue looked at. Feels like there are sores on the back part of her tongue. Pain has been present for months- on and off. Denies bleeding. Describes pain as similar to sore throat. Foods do not seems to irritate area. The patient is a 69-year-old female who presents for evaluation of left hip pain and tongue discomfort. Left Hip Pain - Pain is particularly noticeable during ambulation. - Pain does not disturb her sleep, but she adjusts her position intermittently throughout the night. - Pain is described as sharp upon transitioning from a seated to standing position, and dull duringwalking. - Initially, the pain would subside with increased walking, but currently, it persists regardless of her activity level. - She has not sought any pharmacological intervention for this issue. - Engages in stationary cycling and stretching exercises for her lower back, which she finds beneficial. - Spends considerable time with her 2-year-old grandson, often lifting him and engaging in physicalplay. - Wonders if her cholesterol medication could be causing her joint pains. Tongue Discomfort - Sensation of discomfort at the posterior aspect of her tongue, accompanied by visible bumps. - Occasionally experiences an altered sensation at the tip of her tongue, but does not report any sores. - Acid reflux is well-managed, but reports difficulty swallowing. - Manages symptoms with Listerine gargles and hydrogen peroxide. Supplemental information: None. SUBJECTIVE: Current Medications: Allergies/Social History: Depression Screen/Family History: Current Outpatient Medications on File Prior to Visit Medication Sig Dispense Refill albuterol HFA 90 mcg/act inhaler every 6 (six) hours. aspirin 81 MG EC tablet Take 81 mg by mouth in the morning. biotin 1000 MCG tablet Take by mouth Daily. calcium carbonate 1500 (600 Ca) MG tablet Take 600 mg by mouth in the morning. coenzyme Q-10 100 MG capsule 1 (one) time each day at the same time. estradiol (Estrace) 0.1 MG/GM vaginal cream APPLY [...] OR MEDICINE OF THE DAY. 12 tablet 0 latanoprost (Xalatan) 0.005 % ophthalmic solution Administer 1 drop into both eyes at bedtime. metoprolol succinate XL (Toprol-XL) 25 MG 24 hr tablet TAKE 1 AND 1/2 TABLETS DAILY BY MOUTH EVERY DAY (Patient taking differently: Take 50 mg by mouth TAKE 1 AND 1/2 TABLETS DAILY BY MOUTH EVERY DAY) 135 tablet 0 MiraLax 17 GM/SCOOP powder as directed Orally montelukast (Singulair) 10 MG tablet TAKE 1 TABLET BY MOUTH EVERY DAY 90 tablet 1 pantoprazole (ProtoNix) 40 MG EC tablet TAKE 1 TABLET BY MOUTH EVERY DAY FOR 90 DAYS PARoxetine (Paxil) 20 MG tablet TAKE 1 TABLET BY MOUTH DAILY 90 tablet 1 triamterene-hydrochlorothiazide (Maxzide-25) 37.5-25 MG tablet Take 1 tablet by mouth Daily rosuvastatin (Crestor) 10 MG tablet Take 1 tablet (10 mg) by mouth in the morning. (Patient taking differently: Take 20 mg by mouth Daily) 90 tablet 2 [DISCONTINUED] doxycycline (Vibramycin) 100 MG capsule Take 1 capsule (100 mg) by mouth in the morning and 1 capsule (100 mg) before bedtime. Do all this for 10 days. Take with at least 8 ounces (large glass) of water, do not lie down for 30 minutes after. 20 capsule 0 No current facility-administered medications on file prior to visit. Allergies Allergen Reactions Clarithromycin Unknown Glycerin Diarrhea Social History Tobacco Use Smoking status: Former Current packs/day: 0.00 Types: Cigarettes Quit date: 07/09/1977 Years since quittin.3 Smokeless tobacco: Never Vaping Use Vaping status: Never Used Substance Use Topics Alcohol use: Yes Alcohol/week: 3.0 - 4.0 standard drinks of alcohol Types: 3 - 4 Standard drinks or equivalent per week Comment: 1-2 drinks 2-3 times a week Drug use: Never Depression: Not at risk (10/17/2024) PHQ-2 PHQ-2 Score: 0 Family History Problem Relation Name Age of Onset Hyperlipidemia Mother Hypertension Mother Heart disease Mother Heart disease Father Hypertension Father Asthma Father Hyperlipidemia Father Prostate cancer Brother Past Medical History: Surgical History: ROS Past Medical History: Diagnosis Date Allergies Anxiety Arthritis of hip 04/19/2022 Asthma Dukes esophagus BPPV (benign paroxysmal positional vertigo), left 01/12/2023 Breast cancer screening by mammogram 04/18/2022 neg Breast lump Diverticulitis HTN (hypertension) (CMS/HCC) Hyperlipidemia (CMS/HCC) Hypertension, essential (CMS/HCC) 08/12/2021 Mitral valve prolapse Ocular migraine ([facility]) ARINA (obstructive sleep apnea) Mild, not tx Rotator cuff tear arthropathy, unspecified laterality left Past Surgical History: Procedure Laterality Date BREAST LUMPECTOMY SECTION, LOW TRANSVERSE COLONOSCOPY 2013 COLONOSCOPY 10/03/2018 ESOPHAGOSCOPY / EGD 09/2017 SHOULDER ARTHROSCOPY Left 09/27/2018 SHOULDER ARTHROSCOPY W/ ROTATOR CUFF REPAIR Right 01/31/2024 DEBORAH W/ SAD ; DR MCCLELLAN TONSILLECTOMY Review of Systems Constitutional: Positive for fatigue. HENT: Negative for rhinorrhea. Respiratory: Negative for cough and shortness of breath. Cardiovascular: Negative for chest pain. Gastrointestinal: Negative for abdominal distention. Musculoskeletal: Positive for arthralgias and gait problem. Skin: Negative for rash. Neurological: Negative for dizziness. All other systems reviewed and are negative. OBJECTIVE: 10/17/2024 10:02 AM 10/02/2024 10:04 AM 04/24/2024 8:45 AM 04/14/2024 8:54 AM 01/17/2024 9:00 AM 10/31/2023 3:38 PM 10/09/2023 3:52 PM Vitals BMI 26.12 kg/m2 26.16 kg/m2 26.54 kg/m2 27.11 kg/m2 26.16 kg/m2 26.16 kg/m2 25.61 kg/m2 BSA (m2) 1.68 m2 1.68 m2 1.7 m2 1.71 m2 1.68 m2 1.68 m2 1.67 m2 Systolic 124 112 122 126 124 Diastolic 82 78 70 82 80 Heart Rate 73 92 77 76 SpO2 98 % 94 % 98 % 99 % Temp 97.5 F 98.7 F 96.3 F Height (in) 5' 2 5' 2 5' 2 5' 2 5' 2 5' 2 Weight (lb) 142.8 143 145.12 148.2 143 143 140 Visit Report Report Report Report Report Report Report Report GENERAL EXAM: Physical Exam General Appearance: Alert and oriented. Pleasant affect. No acute distress. Well nourished. Head: Atraumatic normal cephalic. No masses or tenderness. Eyes: EOMI, sclera white, conjunctiva clear, no injection. Pupils relatively equal size. Ears: External ears normal. No signs or trauma or infection. Nose: Nasal mucosal pink and moist, No discharge or congestion. Normal appearance of soft tissue ofnose. Throat: Lips moist, Teeth and gums in good condition No exudate or drainage. Neck: Supple, normal rom of neck, no swelling or pain on palpitation. Musculoskeletal: Left hip examination shows full range of motion. Muscle strength testing is 5 out of 5. Pain is present upon palpation of the greater trochanteric area and gluteus medius and external hip rotators attachments. Extremities: No swelling, no deformity or acute findings. Skin: Warm and dry, no rashes. Neurological: Cranial nerves II-VII grossly intact, no gross neurologic abnormalities. Psychiatric: Cooperative, pleasant, no signs of mood disorder. documented in this encounterThe Rehabilitation [id number] History of Present illness Narrative* Tasha Zamora DO - 10/02/2024 10:00 AM EDT Images from the original note were not included. Ivonne Echevarria is a 69 y.o. female presents with chief complaint of URI HPI: Upper Respiratory Infection Patient complains of symptoms of a URI. Symptoms include runny nose, nasal congestion, post nasal drainage, sore throat, bilateral ear pain, productive cough, wheezing, shortness of breath, chest feels tight at time, fatigue and body aches Onset of symptoms was 4 days ago, and has been gradually worsening since that time. Treatment to date: singular, coricidin, inhaler and motrin- all helps for a little bit No sick exposure No covid test SUBJECTIVE: See medication list at the end of the note. Allergies Allergen Reactions Clarithromycin Unknown Glycerin Diarrhea REVIEW OF SYMPTOMS: Review of Systems Constitutional: Positive for fatigue. Negative for chills and fever. HENT: Positive for congestion, postnasal drip, sinus pressure and sore throat. Respiratory: Positive for cough, shortness of breath and wheezing. Cardiovascular: Negative for chest pain and palpitations. Gastrointestinal: Negative for diarrhea and vomiting. Musculoskeletal: Positive for myalgias. OBJECTIVE: 10/02/2024 10:04 AM 04/24/2024 8:45 AM 04/14/2024 8:54 AM Vitals BMI 26.16 kg/m2 26.54 kg/m2 27.11 kg/m2 Systolic 112 122 126 Diastolic 78 70 82 Heart Rate 92 77 Temp 98.7 F 96.3 F Height (in) 5' 2 5' 2 Weight (lb) 143 145.12 148.2 Visit Report Report Report Report Physical Exam Constitutional: General: She is not in acute distress. Appearance: Normal appearance. HENT: Right Ear: Tympanic membrane and ear canal normal. Left Ear: Tympanic membrane and ear canal normal. Mouth/Throat: Pharynx: No posterior oropharyngeal erythema. Eyes: Conjunctiva/sclera: Conjunctivae normal. Cardiovascular: Rate and Rhythm: Normal rate and regular rhythm. Pulmonary: Breath sounds: Wheezing present. No rhonchi or rales. Lymphadenopathy: Cervical: Cervical adenopathy present. Skin: Findings: No rash. ASSESSMENT AND PLAN: Problem List Items Addressed This Visit None Visit Diagnoses Acute bronchitis, unspecified organism - Primary Relevant Medications doxycycline (Vibramycin) 100 MG capsule predniSONE (Deltasone) 20 MG tablet Will treat with abx for bronchitis and prednisone for there exacerbation of asthma. She is to avoidnsaids while on prednisone, ok to take tylenol. She can continue singulair as well as albuterol as needed. She is to call with any problems or not improving. Follow up if symptoms worsen or fail to improve. Patient's Medications New Prescriptions DOXYCYCLINE (VIBRAMYCIN) 100 MG CAPSULE Take 1 capsule (100 mg) by mouth in the morning and 1 capsule (100 mg) before bedtime. Do all this for 10 days. Take with at least 8 ounces (large glass) of water, do not lie down for 30 minutes after. PREDNISONE (DELTASONE) 20 MG TABLET Take 2 tablets (40 mg) by mouth Daily for 5 days Previous Medications ALBUTEROL HFA 90 MCG/ACT INHALER every 6 (six) hours. ASPIRIN 81 MG EC TABLET Take 81 mg by mouth in the morning. BIOTIN 1000 MCG TABLET Take by mouth Daily. CALCIUM CARBONATE 1500 (600 CA) MG TABLET Take 600 mg by mouth in the morning. COENZYME Q-10 100 MG CAPSULE 1 (one) time each day at the same time. ESTRADIOL (ESTRACE) 0.1 MG/GM VAGINAL CREAM APPLY 1 GRAM VAGINALLY TWICE A WEEK (SUNDAY & SUNDAY) IBANDRONATE (BONIVA) 150 MG TABLET TAKE 1 TABLET BY MOUTH ONCE A MONTH WITH PLAIN WATER 60 MINUTES BEFORE THE FIRST FOOD, BEVERAGE OR MEDICINE OF THE DAY. LATANOPROST (XALATAN) 0.005 % OPHTHALMIC SOLUTION Administer 1 drop into both eyes at bedtime. METOPROLOL SUCCINATE XL (TOPROL-XL) 25 MG 24 HR TABLET TAKE 1 AND 1/2 TABLETS DAILY BY MOUTH EVERY DAY MIRALAX 17 GM/SCOOP POWDER as directed Orally MONTELUKAST (SINGULAIR) 10 MG TABLET TAKE 1 TABLET BY MOUTH EVERY DAY PANTOPRAZOLE (PROTONIX) 40 MG EC TABLET TAKE 1 TABLET BY MOUTH EVERY DAY FOR 90 DAYS PAROXETINE (PAXIL) 20 MG TABLET TAKE 1 TABLET BY MOUTH DAILY ROSUVASTATIN (CRESTOR) 10 MG TABLET Take 1 tablet (10 mg) by mouth in the morning. Modified Medications No medications on file Discontinued Medications LORAZEPAM (ATIVAN) 1 MG TABLET Take 1 tablet (1 mg) by mouth See administration instructions for 10days 1 by mouth 1 hour prior to MRI NIRMATRELVIR&RITONAVIR 300/100 (PAXLOVID, 300/100,) 20 X 150 MG & 10 X 100MG TABLET THERAPYPACK Take 1 Package by mouth Daily I have reviewed and reconciled the history and medication list with the patient today. documented in this encounterThe Rehabilitation [id number] History of Present illness Narrative* Ricardo Canales, PT - 09/09/2024 7:00 AM EST Images from the original note were not included. Ivonne Olmedo Henry [id number] 09/08/24 Subjective: 68 yof sent to PT by Dr Zamora for dizziness. Treated by undersigned last year for similar symptoms Responded to BPPV maneuvers Worst at night when laying down. 4th Feeling much better Objective/Examination: Vision/Ocular: Head alignment: Negative head tilt Ocular alignment-Strabismus observation: Negative misalignment noticed (Exo, Eso, Hyper & Hypo tropia/phoria) Pupil Size/shape: Negative asymmetry noticed Double Vision: Denies Binocular & Monocular double vision Visual Field: Pass, Performed Monocularly and able to see at least shoulder width & chin to eyebrow length Static Visual Acuity (Snellen 20' distance): 20/20 Cover Tropia/Uncover Phoria test: Negative Cross Cover test for fatibagility (20 reps): Negative Saccades: Pass, Performed with stationary head at arms length with Blue & [place] Markers Smooth Pursuit: Pass, Performed Monocularly Negative undershoot/overshoot, jumping, head movement Fixation: Pass, Performed Monocularly & held 10 seconds: Negative Refixation/Eye blinking/Head movement Gaze evoked nystagmus: Negative Convergence breaking point (double or really blurry) inches: Negative within 0-2 inches Convergence Recovery Near Point Convergence Negative within 4-6 inches Accomodation: Performed Monoucarly Negative (Demonstrated Seamless change of near to far or far to near and comparable to Binocular) Postional Testing: Negative BPPV testing: Negative Postural Hypotension head fixed lay down sit up testing: Negative BP was not tested Head Impulse Test: Negative) *Cervical Motion: Impaired motion and discomfort *Cervical Massage vibration test with goggles: reproduced familiar dizziness, nystagmus, loss of balance Vertebral Artery Screening test (VAST): negative Cervical Torsion Test: Negative Head Neck Differentiation Test: Negative *Smooth Pursuit Neck Tosrion Test (SPNT): dizzy and LOB performed standing *Cervical Proprioception Testing: Poor head neck awareness *Cervical Muscle Strength: Deep Neck Flexor Weakness, Fail standardized endurance test Sensory Organization Performance Test: pass Fukuda test: negative Ocular assessment with goggles: Negative spontaneous nystagmus, gaze evoked nystagmus High Frequency Head shake (2 Hz) with video goggles: Negative Motion Sensitivity Test: will test next session Computerized Dynamic Visual Acuity test: will test next session Therapeutic Intervention: Estim & heat Aerobics Manual therapy neck Parish posture on foam Habituation Bppv maneuvers tested all clear Assessment: Suspected Therapy Diagnosis: Cervical Mediated Dizziness Problems: Dizziness with massage vibration neck, Neck pain and poor motion, Motion Sensitivity dizziness, Impaired balance, kang medium fall risk Goals: Eliminate dizziness massage vibration neck, restore neck motion, restore motion sensitivity, restore balance and pass sop tests and kang low fall risk Plan: Cervical manual therapy, vestibular rehabilitation, vision therapy, aerobics/heat Frequency/Duration: Once every other week Potential: Good I hereby deem this POC medically necessary. Please sign below. Ricardo Canales, DScPT, OCS, COMT, AIB-VAM Director Vestibular Rehabilitation documented in this encounterThe Rehabilitation [id number] History of Present illness Narrative* Ricardo Canales, PT - 08/13/2024 7:00 AM EST Images from the original note were not included. Ivonne Echevarria [id number] 08/12/24 Subjective: 68 yof sent to PT by Dr Zamora for dizziness. Treated by undersigned last year for similar symptoms Responded to BPPV maneuvers Worst at night when laying down. 2nd Objective/Examination: Vision/Ocular: Head alignment: Negative head tilt Ocular alignment-Strabismus observation: Negative misalignment noticed (Exo, Eso, Hyper & Hypo tropia/phoria) Pupil Size/shape: Negative asymmetry noticed Double Vision: Denies Binocular & Monocular double vision Visual Field: Pass, Performed Monocularly and able to see at least shoulder width & chin to eyebrow length Static Visual Acuity (Snellen 20' distance): 20/20 Cover Tropia/Uncover Phoria test: Negative Cross Cover test for fatibagility (20 reps): Negative Saccades: Pass, Performed with stationary head at arms length with Blue & [place] Markers Smooth Pursuit: Pass, Performed Monocularly Negative undershoot/overshoot, jumping, head movement Fixation: Pass, Performed Monocularly & held 10 seconds: Negative Refixation/Eye blinking/Head movement Gaze evoked nystagmus: Negative Convergence breaking point (double or really blurry) inches: Negative within 0-2 inches Convergence Recovery Near Point Convergence Negative within 4-6 inches Accomodation: Performed Monoucarly Negative (Demonstrated Seamless change of near to far or far to near and comparable to Binocular) Postional Testing: Negative BPPV testing: Negative Postural Hypotension head fixed lay down sit up testing: Negative BP was not tested Head Impulse Test: Negative) *Cervical Motion: Impaired motion and discomfort *Cervical Massage vibration test with goggles: reproduced familiar dizziness, nystagmus, loss of balance Vertebral Artery Screening test (VAST): negative Cervical Torsion Test: Negative Head Neck Differentiation Test: Negative *Smooth Pursuit Neck Tosrion Test (SPNT): dizzy and LOB performed standing *Cervical Proprioception Testing: Poor head neck awareness *Cervical Muscle Strength: Deep Neck Flexor Weakness, Fail standardized endurance test Sensory Organization Performance Test: pass Fukuda test: negative Ocular assessment with goggles: Negative spontaneous nystagmus, gaze evoked nystagmus High Frequency Head shake (2 Hz) with video goggles: Negative Motion Sensitivity Test: will test next session Computerized Dynamic Visual Acuity test: will test next session Therapeutic Intervention: reEvaluation Sop cdvat ms testing Habituation Balance Aerobics Estim heat Manips spine Revise hep See flow sheet 45 Assessment: Suspected Therapy Diagnosis: Cervical Mediated Dizziness Problems: Dizziness with massage vibration neck, Neck pain and poor motion, Motion Sensitivity dizziness, Impaired balance, kang medium fall risk Goals: Eliminate dizziness massage vibration neck, restore neck motion, restore motion sensitivity, restore balance and pass sop tests and kang low fall risk Plan: Cervical manual therapy, vestibular rehabilitation, vision therapy, aerobics/heat Frequency/Duration: Once every other week Potential: Good I hereby deem this POC medically necessary. Please sign below. Ricardo Canales, RuddyPT, OCS, COMT, AIB-VAM Director Vestibular Rehabilitation documented in this encounterThe Rehabilitation [id number] History of Present illness Narrative* Ricardo Canales PT - 08/04/2024 8:30 AM EST Images from the original note were not included. Ivonne Echevarria [id number] 07/31/24 Subjective: 68 yof sent to PT by Dr Zamora for dizziness. Treated by undersigned last year for similar symptoms Responded to BPPV maneuvers Worst at night when laying down. Objective/Examination: Vision/Ocular: Head alignment: Negative head tilt Ocular alignment-Strabismus observation: Negative misalignment noticed (Exo, Eso, Hyper & Hypo tropia/phoria) Pupil Size/shape: Negative asymmetry noticed Double Vision: Denies Binocular & Monocular double vision Visual Field: Pass, Performed Monocularly and able to see at least shoulder width & chin to eyebrow length Static Visual Acuity (Snellen 20' distance): 20/20 Cover Tropia/Uncover Phoria test: Negative Cross Cover test for fatibagility (20 reps): Negative Saccades: Pass, Performed with stationary head at arms length with Blue & [place] Markers Smooth Pursuit: Pass, Performed Monocularly Negative undershoot/overshoot, jumping, head movement Fixation: Pass, Performed Monocularly & held 10 seconds: Negative Refixation/Eye blinking/Head movement Gaze evoked nystagmus: Negative Convergence breaking point (double or really blurry) inches: Negative within 0-2 inches Convergence Recovery Near Point Convergence Negative within 4-6 inches Accomodation: Performed Monoucarly Negative (Demonstrated Seamless change of near to far or far to near and comparable to Binocular) Postional Testing: Negative BPPV testing: Negative Postural Hypotension head fixed lay down sit up testing: Negative BP was not tested Head Impulse Test: Negative) *Cervical Motion: Impaired motion and discomfort *Cervical Massage vibration test with goggles: reproduced familiar dizziness, nystagmus, loss of balance Vertebral Artery Screening test (VAST): negative Cervical Torsion Test: Negative Head Neck Differentiation Test: Negative *Smooth Pursuit Neck Tosrion Test (SPNT): dizzy and LOB performed standing *Cervical Proprioception Testing: Poor head neck awareness *Cervical Muscle Strength: Deep Neck Flexor Weakness, Fail standardized endurance test Sensory Organization Performance Test: pass Fukuda test: negative Ocular assessment with goggles: Negative spontaneous nystagmus, gaze evoked nystagmus High Frequency Head shake (2 Hz) with video goggles: Negative Motion Sensitivity Test: will test next session Computerized Dynamic Visual Acuity test: will test next session Therapeutic Intervention: Evaluation Gentle rom neck/arms Postural balance Heat neck and aerobics Written HEP See flow sheet Assessment: Suspected Therapy Diagnosis: Cervical Mediated Dizziness Problems: Dizziness with massage vibration neck, Neck pain and poor motion, Motion Sensitivity dizziness, Impaired balance, kang medium fall risk Goals: Eliminate dizziness massage vibration neck, restore neck motion, restore motion sensitivity, restore balance and pass sop tests and kang low fall risk Plan: Cervical manual therapy, vestibular rehabilitation, vision therapy, aerobics/heat Frequency/Duration: Once every other week Potential: Good I hereby deem this POC medically necessary. Please sign below. Ricardo Canales, DScPT, OCS, COMT, AIB-VAM Director Vestibular Rehabilitation documented in this encounterThe Rehabilitation [id number] Telephone encounter Note* Telephone Encounter - Ariana Ramiresnavneet - 07/04/2024 11:34 AM EST Pt called back to report she just tested and is covid positive. Has appointment today 1:45 The Rehabilitation [id number] Miscellaneous Notes* Telephone Encounter - Arianajonathon Mendoza - 07/04/2024 11:34 AM EST Pt called back to report she just tested and is covid positive. Has appointment today 1:45 documented in this encounterThe Rehabilitation [id number] History of Present illness Narrative* Jr. Cherie Mcclellan, - 06/11/2024 8:45 AM EST Images from the original note were not included. HISTORY OF PRESENT ILLNESS: EST PT Ivonne Echevarria is an 68 y.o. @ female. (EST PT) S/P (R) SHOULDER SCOPE W/ RCR (DRR) & SAD 01/31/24 (18WKS 6DAYS). FINISHED PHYSICAL THERAPY (26 SESSIONS) @ [facility] 05/16/24 ; POST-OP DOING WELL - NOTES IMPROVEMENT. CONTINUES HEP - NOTES SOME DISCOMFORT WHEN SHE WHEN SHE RAISES HER ARM - PAIN RUNS ACROSS THE TOP OF HER ARM ; SOME LATERAL PAIN. NOTES FULL / PAINFUL ROM - INCREASED STRENGTH. STATES SHE DID FALL ON HER (R) SHOULDER LAST WEEK - DENIES ANY INCREASED PAIN SINCE. NO PAIN MEDS. ALLERGIES: Allergies Allergen Reactions Clarithromycin Unknown Glycerin Diarrhea HOME MEDICATIONS: Current Outpatient Medications Medication Instructions albuterol HFA [...] DAILY rosuvastatin (CRESTOR) 10 mg, Oral, Daily PHYSICAL EXAM: Shoulder Musculoskeletal Exam Inspection Right Right shoulder inspection is normal. Ecchymosis: none Peripheral edema: none Atrophy: none Masses: none Palpation Right Right shoulder palpation is normal. Crepitus: no crepitus Increased warmth: none Tenderness: none Range of Motion Right Right shoulder range of motion is normal. Active ROM: abnormal. Passive ROM: abnormal. Active forward elevation: 160. Passive forward elevation: 160. Shoulder active abduction: 160. Passive abduction: 160. Active external rotation at side: 80. Passive external rotation at side: 80. Active internal rotation in abduction: 70. Passive internal rotation in abduction: 70. Strength Right External rotation: 5/5. Internal rotation: 5/5. Abduction: 4+/5. Biceps: 5/5. Triceps: 5/5. Neurovascular Right Radial pulse: normal and 2+ Capillary refill: <3 sec Axillary nerve sensory distribution: normal Scapula Right Right shoulder scapula is normal. Position: normal Winging: none Special Tests Right Rotator Cuff Signs Neer's test: negative Craven test: negative Biceps/wang Signs Speed's test: negative AC Joint Signs Active horizontal adduction pain: negative General Constitutional: appears stated age Labored breathing: no Neurological: alert and oriented x3 Vitals: There is no height or weight on file to calculate BMI. Tobacco Use: Low Risk (05/12/2024) Received from [facility] Patient History Smoking Tobacco Use: Never Smokeless Tobacco Use: Never Passive Exposure: Not on file Recent Concern: Tobacco Use - Medium Risk (04/14/2024) Patient History Smoking Tobacco Use: Former Smokeless Tobacco Use: Never Passive Exposure: Not on file Alcohol Use: Not At Risk (07/09/2023) AUDIT-C Frequency of Alcohol Consumption: 2-3 times a week Average Number of Drinks: 1 or 2 Frequency of Binge Drinking: Never IMAGING: Procedures No orders of the defined types were placed in this encounter. ASSESSMENT: ICD-10-CM 1. S/P arthroscopy of right shoulder Z98.890 PLAN: Patient is 18 weeks s/p RT RCR and SAD. She is doing well with minimal pain and full ROM. Her strength has improved since last appointment. States she is much improved from before surgery. I recommend she continue working on strength at home with HEP. She will call with any issues but may follow upas needed. Questions answered in laymen terms at the bedside. The diagnosis, home exercise plan and any ongoing restrictions/ recommendations reviewed. If unable to be reached in office, I recommend evaluation at nearest Emergency Room if any symptoms worsened or new symptoms develop for requiring urgent evaluation. Cherie Mcclellan Jr., D.O. documented in this encounterThe Rehabilitation [id number] History of Present illness Narrative* Lacey Damico MD - 05/12/2024 9:00 AM EST Last office visit May 2023. Subjective : Continues to have palpitations which she describes as a flip-flopping sensation, not associated with lightheadedness presyncope or syncope, not associated with activity, sporadic. Blood pressure elevated 158/98 recheck. No chest pressure tightness or heaviness. History so Far : Palpitations (785.1) (R00.2) PVC symptomatic Reported 3% PVC burden [facility] summer 2021. We will request [...] my direction and personally dictated by me. Ihave reviewed the chart and agree that the record accurately reflects my personal performance of the history, physical exam, discussion and plan. Scribe Attestation By signing my name below, I, Yonathan Marcum LPN attest that this documentation has been prepared under the direction and in the presence of Lacey Damico MD. documented in this [facility] Work Phone: 1(121) 723-910611-04-2024 Instructions* Patient Instructions* Komal Pandya LPN - 05/12/2024 9:00 AM [...] Provided instructions on exercise. [facility]St[facility] Work Phone: 1(369) 639-949010-17-2024 History of Present illness Narrative* Ivory Bazan LPN - 04/24/2024 8:30 AM EDT Reason for Appointment: Patient ID: Ivonne Echevarria [...] Noted Age-related osteoporosis without current pathological fracture ([facility]) 01/10/2023 Anxiety 03/03/2020 Dukes's esophagus with dysplasia 03/03/2020 Chronic cystitis 01/10/2023 Dupuytrens contracture 04/01/2018 Dysphagia 01/10/2023 Eosinophilic esophagitis 01/10/2023 Gastroesophageal reflux disease 03/03/2020 Hemorrhoids 01/10/2023 Hyperlipidemia (CMS/HCC) 03/06/2017 Microscopic hematuria 01/10/2023 Mitral valve prolapse [...] Past Medical History: Diagnosis Date Allergies Asthma ([facility]) Dukes esophagus Breast lump Diverticulitis HTN (hypertension) ([facility]) Ocular migraine ([facility]) ARINA (obstructive sleep apnea) Rotator cuff tear arthropathy, unspecified laterality HISTORY PAST MEDICAL HISTORY SOCIAL HISTORY Past Medical History: Diagnosis Date Allergies Anxiety Arthritis of hip 04/19/2022 Asthma ([facility]) Dukes esophagus BPPV (benign paroxysmal positional vertigo), left 01/12/2023 Breast cancer screening by mammogram 04/18/2022 neg Breast lump Diverticulitis HTN (hypertension) (CMS/HCC) Hyperlipidemia (CMS/HCC) Hypertension, essential (CMS/HCC) 08/12/2021 Mitral valve prolapse Ocular migraine ([facility]) ARINA (obstructive sleep apnea) Mild, not [...] DEBORAH Mcrae/ LALO ; DR MCCLELLAN TONSILLECTOMY REVIEW OF [...] nursing note reviewed. Exam conducted with a mental health advanced practice nurse present. Vitals: Estimated body mass index is [...] few weeks. Will order pelvic ultrasound to assessovaries. Pap was obtained without difficulty and patient [...] of: Tyler Ervin DO documented in this encounterThe Rehabilitation [id number] History of Present illness Narrative* Jr. Cherie Mcclellan DO - 04/23/2024 8:45 AM EDT Images from the original note were not included. HISTORY OF PRESENT ILLNESS: POST OP PT Ivonne Echevarria is an 68 y.o. @ female. (EST PT) S/P (R) SHOULDER SCOPE W/ RCR (DRR) & SAD 01/31/24 (11WKS 6DAYS). DOING WELL. CONTINUES TO HAVE SOME MILD SORENESS. CONTINUES THERAPY 2x WEEKLY @ [facility], WITH HEP. CONTINUES INCREASING ROM. NO PAIN [...] elbow wrist and fingers in all anatomic planeswith 5 out of 5 strength on the [...] Encounter Procedures Ambulatory referral to Physical Therapy [facility] - Vinnie May start active resistance / strengthening (R) shoulder s/p (R) shoulder scope Standing Status: Future Standing Expiration Date: 10/22/2024 Referral Priority: Routine Referral Type: Consultation Referral Reason: Consult and Treat Referred to Provider: Jassi Hernandez PT Requested Specialty: Physical Therapy Number of [...] recommending that she start active resistance / strengtheningin PT. We have discussed avoiding motions including, but not limited to : no heavy lifting. We havediscussed her HEP and restrictions and will see her back in 6 weeks to reassess her strength / ROM of right shoulder. Cherie Mcclellan D.O. documented in this encounterThe Rehabilitation [id number] Hospital Discharge instructions Patient Education 04/22/2024 09:53:03 Urethral Stricture Urethral Stricture Urethral stricture is when the tube that drains pee (urine) from the bladder out of the body (urethra) becomes too narrow. The urethra can become narrow because of scar tissue, infection, surgery, marybeth injury. This can make it difficult to [...] peeing. This may cause decreased pee flow, dribbling,or spraying of pee. Other symptom of this [...] (urethroscope) is used tolook at the urethra. A CT scan or [...] reconstructed. Follow these instructions at home: Take [id number]-[id number] and prescription medicines only as told by [...] provider. Document Revised: 04/19/2023 Document Reviewed: 04/19/2023 [employer] Patient Education 2023 [employer]. Follow Up Care 04/18/2024 11:00:24 With:PRIMO GRUBER, Morgan Haynes, URL Address: [address] [place], [place] [id number]- When: Unknown Comments:[facility] 10-15-2024 NotePatient Education Urology Urethral Stricture Urethral stricture is when the tube that drains pee (urine) from the bladder out of the body (urethra) becomes too narrow. The urethra can become narrow because of scar tissue, infection, surgery, marybeth injury. This can make it difficult to [...] peeing. This may cause decreased pee flow, dribbling,or spraying of pee. Other symptom of this [...] into the urethra, and the narrow part ofthe urethra is cut open with a surgical blade or laser inserted through the urethroscope. ? Urethroplasty. In this procedure, an incision is made in the urethra and the narrow part is removed. Then, the urethra is reconstructed. Follow these instructions at home: ? Take [id number]-utdwjfp and prescription medicines only as told by [...] provider. Document Revised: 04/19/2023 Document Reviewed: 04/19/2023 [employer] Patient Education ? 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 She admits to consuming alcohol frequently, particularly Kathleen Alexanders, which contain ice cream. She acknowledges the need to monitor her diet moreclosely. She has been dealing with itchy eyelids [...] ONCE A MONTH WITH PLAIN WATER 60 MINUTESBEFORE THE FIRST FOOD, BEVERAGE OR MEDICINE OF THE DAY., Disp: 12 tablet, Rfl: 0 latanoprost (Xalatan) 0.005 % ophthalmic solution, Administer 1 drop into both eyes at bedtime., Disp: , Rfl: metoprolol succinate XL (Toprol-XL) 25 MG 24 hr tablet, TAKE 1 AND 1/2 TABLETS DAILY BY MOUTH EVERYDAY, Disp: 135 tablet, Rfl: 0 MiraLax 17 [...] DEBORAH W/ LALO ; DR MCCLELLAN TONSILLECTOMY Depression: Not [...] [facility] I reviewed the patients [...] a topical steroid will be sent to Madalyn Rodrigues. She was instructed to apply it carefully to avoid getting it in her eyes. Potential initial tingling was discussed, which should subside quickly. CONCHIS ZAMORA D.O. This note was entered using [employer]. Grammatical and dictation errors maybe present in translation *I have reviewed and reconciled the history and medication list with the patient today* documented in this encounterThe Rehabilitation [id number] History of Present illness Narrative* Rain Starr, PT - 04/10/2024 8:00 AM EDT Physical Therapy Treatment Visit Patient Name: Ivonne [...] quite a bit, mostly at night. Precautions: [place] Subjective: Pt states she will have some days when she has no pain in right shoulder; other days itwill ache in shoulder and upper arm. Pain: [...] instructed in home exercise program. - met Non Destructive Tester Goals: To be met in 10 weeks [...] Please sign below. Date: documented in this encounterThe Rehabilitation [id number] History of Present illness Narrative* Rain Starr, PT - 03/20/2024 8:00 AM EDT Physical Therapy Treatment Visit Patient Name: Ivonne Echevarria Today's Date: 03/20/2024 Encounter Diagnoses Name Primary? S/P arthroscopy of right shoulder Yes Right shoulder pain, unspecified chronicity Visit number: 11 Timed Code Treatment Minutes: 32 minutes Total Treatment Time: 32 minutes Time In: 8:00 AM Time Out: 8:32 AM History: Pt underwent surgery for right shoulder on 01/31/24; Full-thickness tearing involving essentially entire distal supraspinatus; likely tear with distal retraction of the long head biceps tendon. Pt compliant with use of sling. Pt states taking mostly OTC meds. Having to ice quite a bit, mostly at night. Precautions: [place] Subjective: Pt states right shoulder was really sore for some reason yesterday. Did her stretches and iced shoulder which helped a bit. No complaints of pain coming in today. Pain: 0/10 Objective: PT Evaluation (02/14/2024) RIGHT SHOULDER AROM: not tested PROM: 126 degrees flexion, 90 degrees abduction, 50 degrees ER, 52 degrees IR Strength: not tested Palpation: min/mod tenderness right ant shoulder and upper arm Special Test: N/A Treatment: Manual Therapy: () Delivered manual ther to R shoulder PROM in all planes gentle, STM to anterior shoulder to bicep, grade II and III GH mobs to improve mobility and decrease pain. Scap mobs. Therapeutic Exercise: (32 minutes) Guided pt through exercises per grid. Focused on eccentric control when lowering from overhead position this date. Pt educated on purpose of slowly lowering with ptunderstanding. Will continue to progress as pt tolerates. Therapeutic Activity: () Exercises to improve dynamic activities, functional tasks, functional mobility to return to prior activity level as needed. Neuromuscular re-education: Balance Training, Muscle Facilitation, Dynamic Stability, Core Stabilization, and Blood Flow Restriction Training (BFRT) as needed. Modalities: (declined) CP/ IFC to R shoulder post session to decrease muscle soreness. Assessment: Visit #11 post right RCR 01-31-[address] Mcclellan. Pt with 105 degrees active flexion, 95 degrees active abduction this date following exercises. Will continue to progress as pt tolerates. Outcome Measure: Upper Extremity Functional Index (UEFI): 52/80 Outcome Measure: UEFI: 58/80 (03/17/24) Rehab Diagnosis: right shoulder pain and weakness Short Term Goal: To be met in 2 weeks Goal 1: Pt to be instructed in home exercise program. - met [facility] Goals: To be met in 10 weeks [...] Please sign below. Date: documented in this encounterThe Rehabilitation [id number] History of Present illness Narrative* Jr. Cherie Mcclellan, - 03/12/2024 8:45 AM EDT Images from the original note were not included. HISTORY OF PRESENT ILLNESS: POST OP PT Ivonne Echevarria is an 68 y.o. @ female. (EST PT ; LAST APPT W/ [facility]AQUIN) S/P (R) SHOULDER SCOPE W/ RCR (DRR) & SAD 01/31/24 (5WKS 6DAYS). DOING WELL. CONTINUES THERAPY 2x WEEKLY @ [facility], WITH HEP. CONTINUES INCREASING ROM - WEARING ULTRASLING AT ALL TIMES. NOTES MINIMAL ACHINESS - TAKING MOTRIN PRN ; CONTINUES TO ICE. REVIEW OF SYSTEMS: General: Denies fever, fatigue or weight loss Lungs: Denies SOB Cardio: Denies chest pain GI: Denies indigestion or abdominal pain Neuro: Denies numbness or tingling, denies new onset paralysis Musculoskeletal: ( see note) PHYSICAL EXAM: Right Shoulder Exam Tenderness The patient is experiencing no tenderness (compartments soft). Range of Motion Right shoulder passive abduction: gentle pendulums easily. Muscle Strength Right shoulder normal muscle strength: Fires deltoid and rotator cuff. Other Erythema: absent Scars: absent (portals well healed) Sensation: normal Pulse: present Comments: The operative upper extremity was noted to be neurovascularly unchanged. Sensation to light touch was intact to all dermatomes to operative upper extremity. Radial and ulnar pulses were present and equal bilaterally. Patient was able to motor elbow wrist and fingers in all anatomic planeswith 5 out of 5 strength on the [...] Encounter Procedures Ambulatory referral to Physical Therapy Thad - Vinnie May start AROM ; no strengthening / active resistance. Standing Status: Future Standing Expiration Date: 09/09/2024 Referral Priority: Routine Referral Type: Consultation Referral Reason: Consult and Treat Referred to Provider: Jassi Hernandez PT Requested Specialty: Physical Therapy Number of Visits Requested: 1 ASSESSMENT: ICD-10-CM 1. S/P arthroscopy of right shoulder Z98.890 Ambulatory referral to Physical Therapy PLAN: We [...] acting as scribe for Dr. Mcclellan/joe, PLAN: After examination of her right shoulder she may start AROM with formal physical therapy with understanding of no active resistance / strengthening. She may discontinue use of sling. She is understanding we are recommending she avoid motions including, but not limited to : no fast / aggressivemotions and not lifting, pushing, pulling anything heavier than a coffee cup. We have discussed herHEP and restrictions and will see her back in 6 weeks to reassess her right shoulder. Cherie Mcclellan D.O. documented in this encounterThe Rehabilitation [id number] History of Present illness Narrative* Rain Starr, PT - 03/11/2024 8:00 AM EDT Physical Therapy Treatment Visit / Progress note Patient Name: Ivonne Echevarria Today's Date: 03/11/2024 Encounter Diagnoses Name Primary? S/P arthroscopy of right shoulder Yes Right shoulder pain, unspecified chronicity Visit number: 8 Timed Code Treatment Minutes: 33 minutes Total Treatment Time: 48 minutes Time In: 8:05 AM Time Out: 8:57 AM History: Pt underwent surgery for right shoulder on 01/31/24; Full-thickness tearing involving essentially entire distal supraspinatus; likely tear with distal retraction of the long head biceps tendon. Pt compliant with use of sling. Pt states taking mostly OTC meds. Having to ice quite a bit, mostly at night. Precautions: [place] Subjective: Pt states she is anxious to have sling discontinued at Dr serrato tomorrow. No complaints of pain upon arrival. Sleeping a lot better with use of wedge. Pain: 0/10 Objective: PT Evaluation (02/14/2024) RIGHT SHOULDER AROM: not tested PROM: 126 degrees flexion, 90 degrees abduction, 50 degrees ER, 52 degrees IR Strength: not tested Palpation: min/mod tenderness right ant shoulder and upper arm Special Test: N/A Treatment: Manual Therapy: (12 minutes) Delivered manual ther to R shoulder PROM in all planes gentle, STM to anterior shoulder to bicep, grade II and III GH mobs to improve mobility and decrease pain. Scap mobs. Therapeutic Exercise: (21 minutes) Guided pt through PROM ex for hand, wrist and shoulder to improve functional mobility. Mild progressions this date. Therapeutic Activity: Exercises to improve dynamic activities, functional tasks, functional mobility to return to prior activity level as needed. Neuromuscular re-education: Balance Training, Muscle Facilitation, Dynamic Stability, Core Stabilization, and Blood Flow Restriction Training (BFRT) as needed. Modalities: (15 minutes) CP/ IFC to R shoulder post session to decrease muscle soreness. Assessment: Visit #8 post right RCR 01-31-[address] Mcclellan. PROM of right shoulder 145 degrees flexion, 125 degrees abduction in scapular plane, 95 degrees abduction in frontal plane, 58 degrees ER. Will likely progress following Dr visit tomorrow. Outcome Measure: Upper Extremity Functional Index (UEFI): 52/80 Rehab Diagnosis: right shoulder pain and weakness Short Term Goal: To be met in 2 weeks Goal 1: Pt to be instructed in home exercise program. - met Non Destructive Tester Goals: To be met in 10 weeks [...] Please sign below. Date: documented in this encounterThe Rehabilitation [id number] History of Present illness Narrative* Rain Starr, PT - 02/26/2024 9:00 AM EDT Physical Therapy Treatment Visit Patient Name: Ivonne Echevarria Today's Date: 02/26/2024 Encounter Diagnoses Name Primary? S/P arthroscopy of right shoulder Yes Right shoulder pain, unspecified chronicity Visit number: 4 Timed Code Treatment Minutes: 47 minutes Total Treatment Time: 62 minutes Time In: 9:00 AM Time Out: 10:05 AM History: Pt underwent surgery for right shoulder on 01/31/24; Full-thickness tearing involving essentially entire distal supraspinatus; likely tear with distal retraction of the long head biceps tendon. Pt compliant with use of sling. Pt states taking mostly OTC meds. Having to ice quite a bit, mostly at night. Precautions: [place] Subjective: Pt states doing well. Some soreness following PT but ice helps. Pain not too bad today.Still sleeping in recliner but wants to try bed. Will RTD on 03/12/24. Pain: 4-5/10 Objective: PT Evaluation (02/14/2024) RIGHT SHOULDER AROM: not tested PROM: 126 degrees flexion, 90 degrees abduction, 50 degrees ER, 52 degrees IR Strength: not tested Palpation: min/mod tenderness right ant shoulder and upper arm Special Test: N/A Treatment: Manual Therapy: (17 minutes) Delivered manual ther to R shoulder PROM in all planes gentle, STM to anterior shoulder to bicep, grade II and III GH mobs to improve mobility and decrease pain. Therapeutic Exercise: (30 minutes supervised) Guided pt through PROM ex for hand, wrist and shoulder to improve functional mobility. Added pulleys with passive movement only this date. Therapeutic Activity: Exercises to improve dynamic activities, functional tasks, functional mobility to return to prior activity level as needed. Neuromuscular re-education: Balance Training, Muscle Facilitation, Dynamic Stability, Core Stabilization, and Blood Flow Restriction Training (BFRT) as needed. Modalities: (declined) CP/ IFC to R shoulder post session to decrease muscle soreness. Assessment: Visit #4 post right RCR 01-31-[address] Mcclellan. PROM of right shoulder this date: 138 degrees flexion, 124 degrees abduction, 58 degrees ER. Outcome Measure: Upper Extremity Functional Index (UEFI): 52/80 Rehab Diagnosis: right shoulder pain and weakness Short Term Goal: To be met in 2 weeks Goal 1: Pt to be instructed in home exercise program. [facility]ci Goals: To be met in 10 weeks Goal 1: Pt to report independence and compliance with home program. Goal 2: Pt to achieve 140 degrees of right shoulder flexion to assist with overhead reaching. Goal 3: Pt to achieve 120 degrees of right shoulder abduction to assist with grooming hair. Goal 4: Pt to achieve 4+ to 5/5 strength right shoulder in all planes to assist with functional tasks and lifting. Goal 5: Pt to score no less than 72/80 on UEFI indicating improved QOL. Pt will benefit from skilled PT for 2x/week from 02/14/2024 to 04/24/2024 to address the above impairments. I hereby deem this POC medically necessary. Please sign below. Date: documented in this encounterThe Rehabilitation [id number] History of Present illness Narrative* Lacey Damico MD - 05/10/2023 9:00 AM EDT Patient is new to this provider, previously seen by Dr. Christian and Samantha Roebrt, whose notes I have reviewed. Since last visit patient had a coronary calcium score. This is a 1 year follow-up visit. Subjective : Interval review of systems is negative for chest discomfort pressure tightness heaviness palpitations lightheadedness orthopnea paroxysmal nocturnal dyspnea dependent edema or claudication TIA or CVAtype symptoms or bleeding diathesis palpitations after divided [...] (R00.2) PVC symptomatic Reported 3% PVC burden [facility] summer 2021. We will request [...] year Lacey Damico MD documented in this encounterSt. [facility] Hospital Work Phone: 1(930) 711-488111-02-2023 Instructions* Patient Instructions* Nancy Gutierrez LPN - 05/10/2023 9:00 AM [...] time of your visit. documented in this encounterSt. Rita's Hospital Work Phone: [phone]) 842-935707-12-2023 Evaluation note* Encounter Date Diagnosis Assessment Notes Treatment Notes Treatment Clinical Notes Jan, Constipation (ICD-10 - K59.00) THE PATIENT IS DOING WELL WITH MIRLAX ONCE A DAY. SHE STATES IF SHE STOPS THIS OR SKIPS A DAY OR TWO, HER SYMPTOMS RETURN. CONTINUE MIRALAX DIALY. RETURN IN ONE YEAR Jan,ERD (gastroesophageal reflux disease) (ICD-10 - K21.9)THE PATIENT'S GERD IS UNDER EXCELLENT CONTROL WITH PPI DAILY [employer] Other 07-10-2023 Hospital Discharge instructions Follow Up Care 01/15/2023 09:36:38 With:PRIMO GRUBER, Morgan Haynes, URL Address: [address] [place] [address] [place] [address]- When: Unknown [facility] Lilia 07-10-2023 Hospital Discharge instructions Patient Education 01/15/2023 09:26:30 Urinary Tract Infection, Adult, Mnwq-gu-Qvae Urinary Tract Infection, Adult A urinary tract [...] Follow these instructions at home: Medicines Take qxhv-vtk-ulddmsl and prescription medicines only as told by [...] provider. Document Revised: 02/04/2021 Document Reviewed: 02/04/2021 [employer] Patient Education 2022 [employer]. Follow Up Care 01/20/2022 09:06:12 With:PRIMO GRUBER, Morgan Haynes, URL Address: [facility] [address] , [place] [address]- [phone] When:Within 1 Year(s) [facility] 04-03-2023 Evaluation note* Encounter Date Diagnosis Assessment Notes Treatment Notes Treatment Clinical Notes Oct, GERD (gastroesophageal reflux di sease) (ICD-10 - K21.9) Patient currently taking her pantoprazole 40mg 1 time daily. Patient states that she has been doingwell with this this with no complaints. Patient to continue on pantoprazole 40mg. Oct,arretts esophagus (ICD-10 - K22.70)Patient biopsy came back negative for Barretts. Oct,onstipation (ICD-10 - K59.00)Currently taking miralax daily, She does state sometimes she will have runny stools. Patient in try and increase daily fiber. Patient to start Metamucil fiber OTC. [employer] Other 10-08-2022 NotePROCEDURE: XR HAND RT MIN 3V HISTORY: Bone injury ; third digit bruising; no known injury COMPARISON: None. FINDINGS: BONES:No fracture, acute abnormality, or significant arthropathy. SOFT TISSUES:No visible soft tissue swelling. EFFUSION:None visible. OTHER: Negative. IMPRESSION: 1. No appreciable bone or soft tissue abnormality to account for patient's symptoms. Electronically authenticated by: BRIAN STEVEN Date: 2022-04-15 16:35[facility]07-15-2022 Hospital Discharge instructions Patient Education 01/20/2022 08:40:31 [...] reconstructed. Follow these instructions at home: Take xyjn-lfb-ljqxksh and prescription medicines only as told by [...] 07/21/2016 Document Revised: 02/05/2019 Document Reviewed: 02/05/2019 [employer] Patient Education 2020 [employer]. Follow Up Care 01/17/2021 13:06:47 With:PRIMO GRUBER, Morgan Haynes, URL Address: [address] [place], [place] [id number]- When:Within 1 Year(s) [facility] 04-21-2022 NoteHNO ID: [id number] Author: Adri Lozano Service: ? Author Type: ? Type: [place] Notes Filed: 10/27/2021 1:50 PM Note Text: Sleep Study Check-In Documentation Date: October 27, 2021 Name: Ivonne Echevarria Comments: HST was returned in working order with all sleep questionnaires [facility] History of Present illness Narrative* Adri Lozano - 10/27/2021 1:50 PM EDT Sleep Study Check-In Documentation Date: October 27, 2021 Name: Ivonne Echevarria Comments: HST was returned in working order with all sleep questionnaires Adri Lozano * Koko Tolentino - 10/24/2021 9:20 AM EDT Nomad# [id number] , date shipped out 10/24 Tracking mailout:[id number] Tracking return: [id number] * Ester Del Angel MD - 10/17/2021 12:15 PM EDT October 17, 2021 Standing PSG Orders signed in the last 90 days None Future PSG Orders signed in the last 90 days Ordered Auth. provider HOME SLEEP APNEA TEST (HSAT) [[id number]] 09/22/21 Gasper Hamilton MD Assoc. diagnoses: Heart [...] from Dr. Gasper Hamilton MD, a [facility] Staff. Visit prep complete. Comments :No The sleep study is scheduled for 10/25. Insurance: Payor: [employer] AND [employer] / Plan: ANTHEM MEDIBLUE ACCESS / Product Type: PPO / Payor/Plan Subscr Sex Relation Sub. Ins. ID Effective Group Num 1. MARKELL Sheikh* ECHEVARRIAIVONNEMARYANNE 1955 Female Self [id number] 08/09/21 [id number] [address] Ivette Caro Pss documented in this encounterSt. [facility]04-[facility]-2022 NoteHNO ID: [id number] Author: Koko Tolentino Service: ? Author Type: ? Type: [place] Notes Filed: 10/27/2021 1:50 PM Note Text: Nomad# [id number] , date shipped out 10/24 Tracking mailout:[id number] Tracking return: [id number] County Hospital04-13-2022 NoteHNO ID: [id number] Author: Gasper Hamilton MD Service: ? Author Type: Physician Type: [place] Notes Filed: 10/19/2021 4:38 PM Note Text: [facility] [place] Department of Cardiovascular Medicine VIRTUAL VIDEO VISIT [...] followup. CARDIAC HISTORY: ? Palpitations, evaluated by [facility] as well as Dr. Schneider?in [place]. ?Chronic in nature. ?Has been on atenolol [...] x 2 - Hypertension (more content not included)...[facility] History of Present illness Narrative* Gasper Hamilton MD - 10/19/2021 4:24 PM EDT Images from the original note were not included. [facility] [place] Department of Cardiovascular Medicine VIRTUAL VIDEO VISIT [...] for followup. CARDIAC HISTORY: Palpitations, evaluated by [facility] as well as Dr. Schneider in [place]. Chronic in nature. Has been on atenolol [...] 19, 2021 4:25 PM documented in this encounterSt. [facility] Hospital04-11-2022 NoteHNO ID: [id number] Author: Ester Del Angel MD Service: ? Author Type: Physician Type: [place] Notes Filed: 10/27/2021 1:50 PM Note Text: October 17, 2021 Standing PSG Orders signed in the last 90 days None Future PSG Orders signed in the last 90 days Ordered Auth. provider HOME SLEEP APNEA TEST (HSAT) [[id number]] 09/22/21 Gasper Hamilton MD Assoc. diagnoses: Heart [...] plan. Ester Del Angel MD 8:17 PM, 10/17/2021[facility]04-08-2022 NoteHNO ID: [id number] Author: Ivette Lozano Service: ? Author Type: ? Type: [place] Notes Filed: 10/27/2021 1:50 PM Note Text: October 14, 2021 An order has been received for Home Sleep Apnea Test (HSAT) from Dr. Gasper Hamilton MD, a [facility] Staff. Visit prep complete. Comments :No The sleep study is scheduled for 10/25. Insurance: Payor: [employer]M BLUE CROSS AND BLUE SHIELD / Plan: ANTHEM MEDIBLUE ACCESS / Product Type: PPO / Payor/Plan Subscr Sex Relation Sub. Ins. ID Effective Group Num 1. IVONNE VILLALPANDO 1955 Female Self [id number] 08/09/21 [id number] [address] Ivette Caro [facility]03-17-2022 NoteHNO ID: [id number] Author: Gasper Hamilton MD Service: ? Author Type: Physician Type: [place] Notes Filed: 09/22/2021 8:15 AM Note Text: Heart, V[facility] Thor[facility] [place] Department of Cardiovascular Medicine VIRTUAL VIDEO VISIT [...] CHIEF COMPLAINT Followup HISTORY OF PRESENT ILLNESS Ivnone Echevarria is a 66 year old female presenting for followup Second opinion Cardiovascular evaluation ? HISTORY OF PRESENT ILLNESS: Ms. Echevarria is a 65 year old female who presents today for cardiovascular evaluation. ? CARDIAC HISTORY: ? Palpitations, evaluated by [facility] as well as Dr. Schneider in [place]. Chronic in nature. Has been on atenolol [...] Mother - Heart At (more content not included)...[facility] Evaluation note* Encounter Date Diagnosis Assessment Notes Treatment Notes Treatment Clinical Notes Aug, GERD (gastroesophageal reflux di sease) (ICD-10 - K21.9) Aug,arretts esophagus (ICD-10 - K22.70) Aug,onstipation (ICD-10 - K59.00) CONTINUE MIRALAX DIRECTED [employer] Other 02-04-2022 NoteHNO ID: [id number] Author: Gilmar Jones DO Service: ? Author Type: Physician Type: Procedures Filed: 09/22/2021 2:50 PM Note Text: Patient Name: Ivonne Echevarria : 1955 Ordering Provider: GASPER HAMILTON Indication: R00.2 Palpitations Type of Monitor: Extended Monitoring-Zio Patch Enrollment Dates: 09/02/2021-[facility] Note HNO ID: [id number] Author: Gasper Hamilton MD Service: ? Author Type: Physician Type: [place] Notes Filed: 08/12/2021 11:45 AM Note Text: [facility] [place] [facility] Department of Cardiovascular Medicine SECTION OF CLINICAL CARDIOLOGY OUTPATIENT VISIT DATE August 12, 2021 OUTPATIENT VISIT TYPE NEW PRIMARY CARE PHYSICIAN : Conchis Zamora, DO [address] [place] [address] REFERRING PHYSICIAN: Teagan Szymanski [address] [facility] [address] CHIEF COMPLAINT: Second opinion Cardiovascular evaluation HISTORY OF PRESENT ILLNESS: Ms. Echevarria is a 65 year old female who presents today for cardiovascular evaluation. CARDIAC HISTORY: ? Palpitations, evaluated by [facility] as well as Dr. Schneider in [place]. Chronic in nature. Has been on atenolol [...] burden with a Zio (she's going to [place] for two weeks but wishes to wear [...] SUNDAY AND ONE ON (more content not included)...[facility] Future Appointments Appointment Date:01/20/2022 08:15:00 AM Scheduled Provider:Morgan TILLMAN MD Location:[facility] Appointment Type:URO Office Visit Diagnostic Tests Pending * [facility]ments Appointment Date:01/20/2022 08:15:00 AM Scheduled Provider:Morgan TILLMAN MD Location:[facility] Appointment Type:URO Office Visit [facility] evaluation + Plan note Future Appointments Appointment Date:01/15/2023 08:45:00 AM Scheduled Provider:Morgan TILLMAN MD Location:[facility] Appointment Type:URO Office Visit [facility] evaluation + Plan note Future Appointments Appointment Date:01/15/2023 08:45:00 AM Scheduled Provider:Morgan TILLMAN MD Location:[facility] Appointment Type:URO Office Visit Diagnostic Tests Pending * Urine [facility] App[facility]ments Appointment Date:01/21/2024 08:45:00 AM Scheduled Provider:Morgan TILLMAN MD Location:[facility] Appointment Type:URO Office Visit [facility] evaluation + Plan note Future Appointments Appointment Date:04/22/2024 09:00:00 AM Scheduled Provider:EDGAR Ruff APRN, [place] X Location:[facility] Appointment Type:URO Office Visit [facility] evaluation + Plan note Future Appointments Appointment Date:06/23/2024 03:00:00 PM Scheduled Provider:Morgan TILLMAN MD Location:[facility] Appointment Type:URO Office Visit [facility] evaluation note* Diagnosis Heart palpitations- Primary Palpitations [facility] Diagnosis Sleep apnea, unspecified type- Primary [facility] note[facility] InformationNort [employer] Other Evaluation noteNo assessment information [facility] Work Phone: Evaluation note* Diagnosis Essential [...] Diagnosis Onset Date Resolution Status Abdominal pain acuteConstipationacuteGERD (gastroesophageal reflux disease)acute [facility] Work Phone: Evaluation note* Diagnosis Right shoulder pain, unspecified chronicity- Primary S/P arthroscopy of right shoulder [facility] Diagnosis Right shoulder pain, unspecified chronicity- Primary S/P arthroscopy of right shoulder [facility] Diagnosis S/P arthroscopy of right shoulder- Primary [facility] Diagnosis S/P arthroscopy of right shoulder- Primary Right shoulder pain, unspecified chronicity [facility] Diagnosis S/P arthroscopy of right shoulder- Primary Right shoulder pain, unspecified chronicity [facility] Diagnosis S/P arthroscopy of right shoulder- Primary [facility] Diagnosis S/P arthroscopy of right shoulder- Primary Right shoulder pain, unspecified chronicity [facility] Diagnosis S/P arthroscopy of right shoulder- Primary Right shoulder pain, unspecified chronicity documented in this encounter [facility]* Diagnosis Cervicalgia- Primary Balance disorder documented in this encounter [facility]* Diagnosis Cervicalgia- Primary Balance disorder documented in [facility] encounter [facility]* Diagnosis Cervicalgia- Primary Balance disorder documented in [facility] encounter [facility]* Diagnosis Acute bronchitis, unspecified organism- Primary documented in this encounter [facility]* Diagnosis Greater trochanteric bursitis, left- Primary Left hip pain Pain in joint, pelvic region and thigh Tongue pain Glossodynia Chronic fatigue Other malaise and fatigue Vitamin D deficiency documented in this encounter [facility]* Diagnosis Routine general medical examination at a health care facility- Primary Impaired renal function Unspecified disorder of kidney and ureter Age-related osteoporosis without current pathological fracture (CMS/HCC) Anxiety Anxiety state, unspecified Eosinophilic esophagitis Essential hypertension (CMS/HCC) Unspecified essential hypertension Mixed hyperlipidemia (CMS/HCC) Mixed hyperlipidemia documented in [facility] encounter [facility]* Diagnosis Essential (primary) hypertension Unspecified essential hypertension Palpitations PVC (premature ventricular contraction) Other premature beats CLAROS (dyspnea on exertion) Other dyspnea and respiratory abnormality Mixed hyperlipidemia Family history of heart disease NAS (acute kidney injury) BMI 26.0-26.9,adult Former smoker Personal history of tobacco use, presenting hazards to health documented in this encounter [facility] Work Phone: Evaluation note* Diagnosis Palpitations PVC (premature ventricular contraction) Other premature beats CLAROS (dyspnea on exertion) Other dyspnea and respiratory abnormality Mixed hyperlipidemia Family history of heart disease documented in this encounter 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 Greater trochanteric bursitis, left documented in this encounter [facility]* Diagnosis Greater trochanteric bursitis, left- Primary Left hip pain Pain in joint, pelvic region and thigh documented in this encounter [facility]* Diagnosis Well woman exam with routine gynecological exam Routine gynecological examination Breast cancer screening by mammogram Postmenopausal state Asymptomatic postmenopausal status (age-related) (natural) Chronic left hip pain documented in this encounter [facility] HealthcareHistory general Narrative - Reported* Type Description Date Medical History acid reflux Medical HistoryBarretts esophagusMedical HistoryallergiesMedical HistoryPanic attacksSurgical HistoryC sectionSurgical HistorytonsillectomyHospitalization Historychild [employer] Other History of Present illness Narrative* Ms. [...] she has further problems. [facility] [employer] DO Work Phone: History of Present illness [...] medication regimen. She denies medication side effects. [facility] [employer] DO Work Phone: Hospital course Narrative No data available for this section [facility] Hospital Discharge instructions No data available for this section [facility] progress note No data available for this section [facility] reason for referral (narrative)* Consultation (Routine) - AuthorizedSpecialtyDiagnoses / ProceduresReferred By ContactReferred To ContactCardiology Diagnoses Essential hypertension Palpitations Procedures Follow Up In Cardiology Lacey Damico MD [address] [facility] [address] [place] [address] Lacey Damico MD [address] [facility] [address] [place] [address] Referral IDStatusReasonStart DateExpiration DateVisits RequestedVisits [id number]/2/202311/ [facility] Work Phone: Reason for referral (narrative)* Consultation (Routine) - ClosedSpecialtyDiagnoses / ProceduresReferred By ContactReferred To ContactPhysical Therapy Diagnoses S/P arthroscopy of right shoulder Procedures GA OFFICE/OUTPATIENT NEW HIGH MDM 60 MINUTES Jr. Cherie Mcclellan DO [address] [facility] [address] [place] [address] Jassi Hernandez, PT [address] [facility] [address] [place] [address] Referral IDStatusReasonStart DateExpiration DateVisits RequestedVisits [id number] Consult and Treat / [facility] Narrative* Consultation (Routine) - Authorized SpecialtyDiagnoses / ProceduresReferred By ContactReferred To ContactPhysical Therapy Diagnoses S/P arthroscopy of right shoulder Procedures GA OFFICE/OUTPATIENT NEW HIGH MDM 60 MINUTES Conchis Bueno, PA [address] [address] Rain Starr, PT Referral IDStatusReasonStart DateExpiration DateVisits RequestedVisits [id number] Consult and Treat [facility]Reason for [facility] Narrative* Consultation (Routine) - Authorized SpecialtyDiagnoses / ProceduresReferred By ContactReferred To ContactPhysical Therapy Diagnoses S/P arthroscopy of right shoulder Procedures GA OFFICE/OUTPATIENT NEW HIGH MDM 60 MINUTES Conchis Bueno, PA [address] [facility] [address] [place] [address] Phone: tel: fax: Rain Starr, PT Referral IDStatusReasonStart DateExpiration DateVisits RequestedVisits [id number] Consult and Treat [facility] for [facility] Narrative* Consultation (Routine) - Closed SpecialtyDiagnoses / ProceduresReferred By ContactReferred To ContactPhysical Therapy Diagnoses S/P arthroscopy of right shoulder Procedures GA OFFICE/OUTPATIENT NEW [facility] 60 MINUTES Conchis Bueno, PA [address] [address] Phone: tel: fax: Rain Starr, PT Referral IDStatusReasonStart DateExpiration DateVisits RequestedVisits [id number] Consult and Treat [facility] HealthcareReason for visit Narrative* Rehabilitation - Outpatient (Routine) - AuthorizedSpecialtyDiagnoses / ProceduresReferred By ContactReferred To ContactPhysical Therapy Diagnoses Dizziness and giddiness Procedures GA PHYS THERAPY EVALUATION Conchis Zamora, DO [address] [facility] [address] [place] [address] Phone: tel: fax: Ricardo Canales, PT [address] [place] [address] Phone: tel: Referral IDStatusReasonGarrochales DateExpiration DateVisits RequestedVisits [id number]/27/202512/31/[id number] [facility] for visit Narrative* Cardiac Stress Testing (Routine) - AuthorizedSpecialtyDiagnoses / ProceduresReferred By ContactReferred To ContactCardiology Diagnoses Palpitations PVC (premature ventricular contraction) CLAROS (dyspnea on exertion) Mixed hyperlipidemia Family history of heart disease Procedures Nuclear Stress Test CHG MYOCARDIAL SPECT MULTIPLE STUDIES Lacey Damico MD [address] [id number] Phone: tel: fax: Referral IDStatusReasonStalachua DateExpiration DateVisits RequestedVisits [id number] Perform Procedure [facility] Work Phone: Reason for visit Narrative* Cardiac Stress Testing (Routine) - AuthorizedSpecialtyDiagnoses / ProceduresReferred By Contact Referred To ContactCardiology Diagnoses Palpitations PVC (premature ventricular contraction) CLAROS (dyspnea on exertion) Mixed hyperlipidemia Family history of heart disease Procedures Nuclear Stress Test CHG MYOCARDIAL SPECT MULTIPLE STUDIES Lacey Damico MD [address] [address] Phone: tel: fax: Referral IDStatusReasonGarrochales DateExpiration DateVisits RequestedVisits [id number] Perform Procedure [facility] Work Phone: Chief Complaint IVONNE ECHEVARRIA is being seen [...] office follow-up. * She was evaluated by [facility] cardiology for second opinion regarding [...] testing. * No caffeine, no alcohol, no sdis-dab-wibmndh medications or energy drinks. * Encouraged to [...] Paxil greater than 30 years. Family History Unknown Family Member Name Dates Details Family [...] Date/T veronica Not Specified Heart disease Unknown fatherHeart diseaseUnknownbrotherMalignant neoplasm of anusUnknownMalignant neoplasm of prostateUnknownbrotherAtrial fibrillationUnknownsisterDiabetes mellitusUnknown Relationship Condition Age at Onset Recorded Date/T veronica mother Heart disease Unknown fatherHeart diseaseUnknownbrotherMalignant neoplasm of anusUnknownMalignant neoplasm of prostateUnknownbrotherAtrial fibrillationUnknownsisterDiabetes mellitusUnknownfatherDeceasedUnknownmotherDeceasedUnknown Summary Purpose Advance Directives Advance Directive Response Recorded Date/ Time Advance Directives No May 10, 2018 1:36pm Advance Directive Response Recorded Date/ Time Advance Directives No May 10, 2018 12:36pm Reason for Referral SpecialtyDiagnoses / ProceduresReferred By ContactReferred To Contact Diagnoses Sleep apnea, unspecified type Procedures CONSULT TO SLEEP MEDICINE - ADULT OFFICE/OUTPATIENT [facility] 60-74 MINUTES Gasper Hamilton MD [address] [place] [address] Referral IDStatusReasonStart DateExpiration DateVisits RequestedVisits [id number] Review PCP Requested Referral Chief Complaint and Reason for Visit Chief [...] or prosecute any alcohol or drug abuse patient.[facility] the event this information is protected by the Federal Confidentiality of Alcohol and Drug Abuse Patient Records regulations: The Federal rules restrict any use of the information to criminally investigate or prosecute any alcohol or drug abuse patient.[facility] HospitalIn the event this information is protected by the Federal Confidentiality of Alcohol and Drug Abuse Patient Records regulations: The Federal rules restrict any use of the information to criminally investigate or prosecute any alcohol or drug abuse patient.[facility] Reason for Visit (unrecogniz ed section and content) ReasonCommentsFollow UpReasonCommentsHSAT Check In (Adult)ReasonComments Follow-vr7rQtsquhEtkmztqlMoqlmv ExamReasonCommentsPainPost-opReasonCommentsWell Women VisitReasonCommentsAnnual ExamSpecialtyDiagnoses / ProceduresReferred By ContactReferred To ContactCardiology Diagnoses Essential hypertension Palpitations Procedures Follow Up In Cardiology Lacey Damico MD Phone: tel: fax: Lacey Damico MD [address] [address] Phone: tel: fax: Referral IDStatusReasonStart DateExpiration DateVisits RequestedVisits [id number]/2/202311/1/[id number]ijtfnad URIReasonCommentsleft hip painReasonCommentsFollow-up6 month Follow up for HypertensionSpecialtyDiagnoses / ProceduresReferred By ContactReferred To ContactCardiology Diagnoses Essential hypertension Procedures Follow Up In Cardiology Lacey Damico MD [address] [address] Phone: tel: fax: Lacey Damico MD 917 [facility] [address] [place] [address] Phone: tel: fax: Referral IDStatusReasonStart DateExpiration DateVisits RequestedVisits [id number]/4/202411/4/[id number] PainReason CommentsHip PainReasonCommentsGynecologic Exam Care Teams (unrecognized sec tion and content) Team MemberRelationshipSpecialtyStart DateEnd Date Conchis Zamora [address] [address] PCP - Generalmily Rnppifgh04/15/16 Gasper Hamilton MD [address] [place] [address] Primary Staff PhysicianCardiology08/12/21Team MemberRelationshipSpecialtyStart DateEnd Date Conchis Zamora [address] [address] PCP - GeneralFamily Mgayfaee05/15/16 Gasper Hamilton MD [address] [facility] [place] [address] Primary Staff PhysicianCardiology08/12/21 Team Status: Active Member Role Status Dates Conchis Zamora DO Primary Care Provider Active Team Status: Inactive Member Role Status Dates Conchis Zamora DO Primary Care Provider Active John Robert MDEmergency ProviderActiveTeam MemberRelationshipSpecialtyStart DateEnd Date Conchis Zamora DO [address] [facility] [address] [place] [address] PCP - General07/09/99Team MemberRelationshipSpecialtyStart DateEnd Date Conchis Zamora, DO [address] [facility] [address] [place] [address] PCP - [facility]07/09/22 Conchis Zamora, DO [address] [facility] [address] [place] [address] PCP - [facility] Medicine10/12/23Team MemberRelationshipSpecialtyStart DateEnd Date Conchis Zamora, DO [address] [facility] [address] [place] [address] PCP - [facility]07/09/22 Conchis Zamora, DO [address] [facility] [address] [place] [address] PCP - [facility] Medicine10/12/23Team MemberRelationshipSpecialtyStart DateEnd Date Conchis Zamora, DO [address] [facility] [address] [place] [address] PCP - [facility]07/09/22 Conchis Zamora, DO [address] [facility] [address] [place] [address] PCP - [facility] Medicine10/12/23Team MemberRelationshipSpecialtyStart DateEnd Date Conchis Zamora, DO [address] [facility] [address] [place] [address] PCP - [facility]07/09/22 Conchis Zamora, DO [address] [facility] [address] [place] [address] PCP - [facility] Medicine10/12/23Team MemberRelationshipSpecialtyStart DateEnd Date Conchis Zamora, DO [address] [facility] [address] [place] [address] PCP - [facility]07/09/22 Conchis Zamora, DO [address] [facility] [address] [place] [address] PCP - [facility] Medicine10/12/23Team MemberRelationshipSpecialtyStart DateEnd Date Conchis Zamora, DO [address] [facility] [address] [place] [address] PCP - [facility]07/09/22 Conchis Zamora, DO [address] [facility] [address] [place] [address] PCP - [facility] Medicine10/12/23Team MemberRelationshipSpecialtyStart DateEnd Date Conchis Zamora, DO [address] [facility] [address] [place] [address] PCP - [facility]07/09/22 Conchis Zamora, DO [address] [facility] [address] [place] [address] PCP [facility] Medicine10/12/23Team MemberRelationshipSpecialtyStart DateEnd Date Conchis Zamora, DO [address] [facility] [address] [place] [address] PCP - [facility]07/09/22 Conchis Zamora, DO [address] [facility] [address] [place] [address] PCP - [facility] Medicine10/12/23Team MemberRelationshipSpecialtyStart DateEnd Date Conchis Zamora, DO [address] [facility] [address] [place] [address] PCP - [facility]07/09/22 Conchis Zamora, DO [address] [facility] [address] [place] [address] PCP - [facility]10/12/23Team MemberRelationshipSpecialtyStart DateEnd Date Conchis Zamora, DO [address] [facility] [address] [place] [address] PCP - [facility]07/09/22 Conchis Zamora, DO [address] [facility] [address] [place] [address] PCP - [facility]10/12/23Team MemberRelationshipSpecialtyStart DateEnd Date Conchis Zamora, DO [address] [facility] [address] [place] [address] PCP - [facility]07/09/22 Conchis Zamora, DO [address] [facility] [address] [place] [address] PCP - [facility]10/12/23Team MemberRelationshipSpecialtyStart DateEnd Date Conchis Zamora, DO [address] [facility] [address] [place] [address] PCP - [facility]07/09/22 Conchis Zamora, DO [address] [facility] [address] [place] [address] PCP - [facility]10/12/23Team MemberRelationshipSpecialtyStart DateEnd Date Conchis Zamora, [address] [facility] [address] [place] [address] PCP - [facility]07/09/22 Conchis Zamora, DO [address] [facility] [address] [place] [address] PCP - [facility]10/12/23Team MemberRelationshipSpecialtyStart DateEnd Date Conchis Zamora, PCP - General07/09/99 Team Status: Inactive Member Role Status Dates Conchis Zamora DO Primary Care Provider Active Start: May 14, 2024 End: May 14Kallie Marroquin ProviderActiveStart: May 14, 2024 End: May 14, 2024Team MemberRelationshipSpecialtyStart DateEnd Date Conchis Zamora, [address] [facility] [address] [place] [address] PCP - [facility]07/09/22 Conchis Zamora, [address] [facility] [address] [place] [address] PCP - [facility]10/12/23Team MemberRelationshipSpecialtyStart DateEnd Date Conchis Zamora DO [address] [facility] [address] [place] [address] PCP - [facility]07/09/22 Conchis Zamora, DO [address] [facility] [address] [place] [address] PCP - [facility]10/12/23Team MemberRelationshipSpecialtyStart DateEnd Date Conchis Zamora, DO [address] [facility] [address] [place] [address] PCP - [facility]07/09/2311 Conchis Zamora, DO [address] [facility] [address] [place] [address] PCP - [facility] Medicine10/12/23Team MemberRelationshipSpecialtyStart DateEnd Date Conchis Zamora, DO [address] [facility] [address] [place] [address] PCP - [facility]07/09/2311 Conchis Zamora, DO [address] [facility] [address] [place] [address] PCP - [facility] Medicine10/12/23Team MemberRelationshipSpecialtyStart DateEnd Date Conchis Zamora, DO [address] [facility] [address] [place] [address] PCP - [facility]07/09/22 Conchis Zamora, DO [address] [facility] [address] [place] [address] PCP - [facility]10/12/23Team MemberRelationshipSpecialtyStart DateEnd Date Conchis Zamora, DO [address] [facility] [address] [place] [address] PCP - [facility]07/09/22 Conchis Zamora, DO [address] [facility] [address] [place] [address] PCP - [facility] Medicine10/12/23Team MemberRelationshipSpecialtyStart DateEnd Date Conchis Zamora, DO [address] [facility] [address] [place] [address] PCP - [facility]07/09/22 Conchis Zamora, DO [address] [facility] [address] [place] [address] PCP - [facility]10/12/23Team MemberRelationshipSpecialtyStart DateEnd Date Conchis Zamora, DO [address] [facility] [address] [place] [address] PCP - [facility]07/09/22 Conchis Zamora, DO [address] [facility] [address] [place] [address] PCP - [facility] Medicine10/12/23Team MemberRelationshipSpecialtyStart DateEnd Date Conchis Zamora, DO [address] [facility] [address] [place] [address] PCP - [facility]07/09/22 Conchis Zamora, DO [address] [facility] [address] [place] [address] PCP [facility] Medicine10/12/23Team MemberRelationshipSpecialtyStart DateEnd Date Conchis Zamora, DO [address] [facility] [address] [place] [address] PCP - [facility]07/09/22 Conchis Zamora, DO [address] [facility] [address] [place] [address] [facility]10/12/23Team MemberRelationshipSpecialtyStart DateEnd Date Conchis Zamora, DO [address] [facility] [address] [place] [address] PCP - [facility]07/09/22 Conchis Zamora, DO [address] [facility] [address] [place] [address] [facility]10/12/23Team MemberRelationshipSpecialtyStart DateEnd Date Conchis Zamora, DO [address] [facility] [address] [place] [address] PCP - [facility]07/09/22 Conchis Zamora, DO [address] [facility] [address] [place] [address] [facility]10/12/23Team MemberRelationshipSpecialtyStart DateEnd Date Conchis Zamora, DO [address] [facility] [address] [place] [address] PCP - [facility]07/09/22 Conchis Zamora, DO [address] [facility] [address] [place] [address] PCP [facility]10/12/23Te MemberRelationshipSpecialtyStart DateEnd Date Conchis Zamora, DO [address] [facility] [address] [place] [address] PCP - [facility]07/09/2311 Conchis Zamora, DO [address] [facility] [address] [place] [address] PCP - [facility]10/12/23Team MemberRelationshipSpecialtyStart DateEnd Date Conchis Zamora, DO [address] [facility] [address] [place] [address] PCP - [facility]10/12/23Te MemberRelationshipSpecialtyStart DateEnd Date Conchis Zamora, DO [address] [facility] [address] [place] [address] PCP - [facility]10/12/23Team MemberRelationshipSpecialtyStart DateEnd Date Conchis Zamora, DO [address] [facility] [address] [place] [address] PCP - [facility]10/12/23Team MemberRelationshipSpecialtyStart DateEnd Date Conchis Zamora, DO [address] [facility] [address] [place] [address] PCP - [facility]10/12/23 Conchis Zamora, DO [address] [facility] [address] [place] [address] PCP - [facility]07/09/2511Team MemberRelationshipSpecialtyStart Date End Date Conchis Zamora, DO [address] [facility] [address] [place] [address] PCP - [facility]10/12/23 Conchis Zamora, DO [address] [facility] [address] [place] [address] PCP - [facility]07/09/2511Team MemberRelationshipSpecialtyStart Date End Date Conchis Zamora, DO [address] [facility] [address] [place] [address] PCP - [facility]10/12/23 Conchis Zamora, DO [address] [facility] [address] [place] [address] PCP - Medical [facility]07/09/2511Team MemberRelationshipSpecialtyStart Date End Date Conchis Zamora, DO [address] [facility] [address] [place] [address] PCP - [facility]10/12/23 Conchis Zamora, DO [address] [facility] [address] [place] [address] PCP - Medical [facility]07/09/2511Team MemberRelationshipSpecialtyStart Date End Date Conchis Zamora, DO [address] [facility] [address] [place] [address] PCP - [facility]10/12/23 Conchis Zamora, DO [address] [facility] [address] [place] [address] PCP - [facility]07/09/2511Team MemberRelationshipSpecialtyStart Date End Date Conchis Zamora, DO PCP - [facility]07/09/99Team MemberRelationshipSpecialtyStart DateEnd Date Conchis Zamora, DO [address] [facility] [address] [place] [address] PCP - [facility] Medicine10/12/23 Conchis Zamora, DO [address] [facility] [address] [place] [address] PCP - Medical [facility]07/09/2511Team MemberRelationshipSpecialtyStart Date End Date Conchis Zamora, DO [address] [facility] [address] [place] [address] PCP - [facility] Medicine12/12/24Team MemberRelationshipSpecialtyStart DateEnd Date Conchis Zamora, DO [address] [facility] [address] [place] [address] PCP - [facility] Medicine12/12/24Team MemberRelationshipSpecialtyStart DateEnd Date Conchis Zamora, DO [address] [facility] [address] [place] [address] PCP - [facility] Medicine12/12/24Team MemberRelationshipSpecialtyStart DateEnd Date Conchis Zamora, DO [address] [facility] [address] [place] [address] PCP - [facility] Medicine10/12/23 Conchis Zamora, DO [address] [facility] [address] [place] [address] PCP - Medical [facility]07/09/2511Team MemberRelationshipSpecialtyStart Date End Date Conchis Zamora, DO [address] [facility] [address] [place] [address] PCP - [facility]10/12/23 Conchis Zamora, DO [address] [facility] [address] [place] [address] [facility] - [facility]07/09/2511Team MemberRelationshipSpecialtyStart Date End Date Conchis Zamora, DO [address] [facility] [address] [place] [address] PCP - [facility]10/12/23 Conchis Zamora, DO [address] [facility] Maunel [address] [place] [address] PCP - [facility]07/09/2511Team MemberRelationshipSpecialtyStart Date End Date Conchis Zamora, DO [address] [facility] [address] [place] [address] PCP [facility]07/09/2311 Conchis Zamora, DO [address] [facility] [address] [place] [address] PCP [facility]10/12/23 Conchis Zamora, [address] [facility] [address] [place] [address] PCP - [facility]07/09/2511Team MemberRelationshipSpecialtyStart Date End Date Conchis Zamora DO [address] [facility] [address] [place] [address] PCP - GeneralFamily Medicine10/12/23 Conchis Zamora DO [address] [facility] [address] [place] [address] PCP - Medical [facility] [place]07/09/2511 INFORMATION SOURCE (unrecogn ized section and content) DATE CREATED AUTHOR 10/29/2021 [facility] DATE CREATED AUTHOR AUTHOR'S ORGANIZ ATION 11/10/2021 [facility] [employer] DATE CREATED AUTHOR AUTHOR'S ORGANIZ ATION 05/15/2022 [facility] DATE CREATED AUTHOR AUTHOR'S ORGANIZ ATION 05/15/2022 [facility] DATE CREATED AUTHOR AUTHOR'S ORGANIZ ATION 06/05/2022 [facility] DATE CREATED AUTHOR AUTHOR'S ORGANIZ ATION 09/25/2022 [facility] DATE CREATED AUTHOR AUTHOR'S ORGANIZ ATION 04/24/2024 [facility] DATE CREATED AUTHOR AUTHOR'S ORGANIZ ATION 07/10/2024 [facility] DATE CREATED AUTHOR AUTHOR'S ORGANIZ ATION 12/19/2024 [facility] DATE CREATED AUTHOR AUTHOR'S ORGANIZ ATION 02/07/2025 [facility] DATE CREATED AUTHOR AUTHOR'S ORGANIZ ATION 02/17/2025 [facility] EPIC Goals (unrecognized section and content) [...] BE BASED ON THE PRIMARY CLINICAL RECORDS. [facility]. provides no warranty or guarantee of the accuracy or completeness of information in this document.
[2025-05-15 12:08] LABS: Age Gdln ACOG Testing Note (.); Pap IG (Image Guided) Note (.)
== END 2025-05-12 12:09 | disposition home or self-care (01) ==
LOC: LAB 12:08
PROVIDERS: Visit Provider Obstetrics & Gynecology
DX: Z01.419 Encounter for gynecological examination (general) (routine) without abnormal findings (principal)
CPT/HCPCS: 88175

== ENCOUNTER 2025-06-03 13:58 | Outpatient (OUT) | payer MEDICARE, SELFPAY ==
--- NOTE | 2025-06-03 14:00 | MM_ITS ---
Patient Name: DENNIS ECHEVARRIA MR#: [id number] : 1955 Exam Date: 06/03/2025 Ordering Doctor: DR JANESSA CUELLAR . RADIOLOGY REPORT PROCEDURE: MM TOMOSYNTHESIS SCREENING BI COMPARISON: MM TOMOSYNTHESIS SCREENING BI, 05/19/2024. MM TOMOSYNTHESIS SCREENING BI, 04/20/2023. MG MAMM SCREEN 3D LUAN CAD, 04/18/2022. MG MAMM LUAN SCRN W CAD DIG, 11/04/2013. INDICATIONS: Screening Calculator Name NCI Breast Cancer Risk Assessment Tool 5 Year Breast Cancer Risk 2.50% Lifetime Breast Cancer Risk 8.20% Personal Breast Cancer No Personal Ovarian Cancer No Treatments None Family Cancers Aunt-paternal with breast cancer at age ~60; Brother with rectal cancer at age 70. LOCATION: [facility] BREAST COMPOSITION: The breasts are heterogeneously dense, which may obscure small masses. FINDINGS: DIAGNOSTIC CATEGORY 1--NEGATIVE. RIGHT BREAST: No significant suspicious finding. LEFT BREAST: No significant suspicious finding. RECOMMENDATIONS: ROUTINE MAMMOGRAM AND CLINICAL EVALUATION IN 12 MONTHS. Dictated by: Emre Carter DO on 06/03/2025 at 14:48 Approved by: Emre Carter DO on 06/03/2025 at 14:49
--- OUTSIDE RECORDS SUMMARY | 2025-06-03 14:01 | XMS_ITS | Clinical Summary ---
Author Organization [facility] Address [address] [place] [id number] Care Team Providers Care Warp Knitter Name Role Phone TimboArjun Primary Care Provid er Gasper Hamilton MD Unavailable [phone] Allergies Active AllergyReactionsCriticalityNoted DateCommentsClarithromycinIntolerance 09/29/20166448DihdGewmxrd57/04/2022 Medications MedicationSigDispense QuantityRefillsLast FilledStart DateEnd DateStatus pantoprazole [...] tablet ctive Active Problems ProblemNoted DateDiagnosed DateHypertension, eerpvmrka04/04/2022ure vuqpunqxpszhcftafouc04/04/2022Vitamin D fehisvpxav12/01/2017 Family History Medical HistoryRelationCommentsHyperlipidemiaBrother 1HypertensionBrother 1 StrokeBrother 1miniBlood ClotsBrother 2HyperlipidemiaBrother 2Hypertension Brother 2StrokeBrother 2DVTHyperlipidemiaBrother 3HypertensionBrother 3Heart AttackFatherx 2HeartMotherCABGHeart AttackMotherx2 silentHyperlipidemiaMother HypertensionMotherHyperlipidemiaSisterHypertensionSisterRelationStatusComments Brother 1Brother 2Brother 3FatherDeceased (Age 67)heart attackMotherDeceased (Age 84)Sister Social History Tobacco UseTypesPacks/DayYears UsedDateSmoking Tobacco: FormerCigarettesQuit: 1990Smokeless Tobacco: NeverAlcohol UseStandard Drinks/WeekCommentsYes0 (1 standard drink = 0.6 oz pure alcohol)couple drinks weeklyCommentsUnknown Sex and Gender InformationValueDate RecordedSex Assigned at BirthNot on file Legal CsgUgbvlf30/15/2016 12:14 PM ESTGender BjdovsldIeadfk28/15/2022 2:13 PM EDTSexual OnleqpapiufUtsmjuoy48/15/2022 2:13 PM EDT Last Filed Vital Signs Vital SignReadingTime TakenCommentsBlood Fphwxuhf151/8208/12/2021 10:06 AM EST Ksdvd414908/12/2021 10:06 AM ESTTemperature--Respiratory Rate--Oxygen Saturation 95%08/12/2021 10:06 AM ESTInhaled Oxygen Concentration--Vldtns24.1 kg (148 lb) 08/12/2021 10:06 AM DOCVireev140.5 cm (5' 2 )08/12/2021 10:06 AM ESTBody Mass Index27.0708/12/2021 10:06 AM EST Plan of Treatment Health MaintenanceDue DateLast DoneCommentsAnxiety Ebutbcqrc79/10/1975Depression Pptuyueya77/10/1975Hepatitis C Qclsvqouc14/10/1975DTaP,Tdap,Td Vaccine (1 - Tdap)1975Mammogram Prqscvabs71/10/1997CT Xnkilgenmrbk80/10/2002Cologuard (FIT-DNA)08/18/20011227Cekbutikmzp38/10/2002Colorectal Cancer Xdjrcdfea62/10/2002 Diabetes Szzjabltg34/10/2002Fecal Occult Blood2001Lipid Screening 08/18/20012937Qgesrdirbmwft29/10/2002Pneumococcal Vaccine: 50+ (1 of 1 - PCV) 2006Bone Density Pywgzlfzi65/10/2022hingrix Vaccine (2 of 2)12/05/2021 10/10/2021dvance Directive Uqxljnhmvb83/01/2025Covid-19 Vaccine (2024- season), 10/07/2020, 10/01/2020, Additional history exists Influenza Vaccine (#1), 06/15/2021, 04/19/2020, Additional history existsRSV Vaccine (1 - 1-dose 75+ series)2031 Insurance Care Teams Team MemberRelationshipSpecialtyStart DateEnd Arjun Izquierdo DO [address] [facility] [address] [place] [address] PCP - GeneralFamily Ocqqquwq97/15/16 Gasper Hamilton MD [address] [place] [address] Primary Staff PhysicianCardiology08/12/21
== END 2025-06-03 13:59 | disposition home or self-care (01) ==
LOC: MAMMO 13:58
PROVIDERS: Visit Provider Obstetrics & Gynecology
DX: Z12.31 Encounter for screening mammogram for malignant neoplasm of breast (principal); Z80.3 Family history of malignant neoplasm of breast; Z80.8 Family history of malignant neoplasm of other organs or systems
CPT/HCPCS: 77063; 77067